=== PATIENT | male | born 1960 | race Caucasian/White ===

== ENCOUNTER 2022-10-06 09:37 | Emergency (ER) | payer MEDICARE, OTHER, SELFPAY ==
[2022-10-06 10:00] VITALS: BP 129/71; PULSE 65; RESP 20; TEMP 36.6; O2SAT 95; BMI 34.7
--- NOTE | 2022-10-06 10:15 | ED.GENADULT ---
HPI - General Adult General Time Seen by Provider: 10:16 Date Seen: 10/06/22 Chief complaint: Chest Pain Stated complaint: Chest pain, short of breath Time Seen by Provider: 10/06/22 10:06 Source: patient Mode of arrival: ambulatory History of Present Illness HPI narrative: Shashank is a 61 year old male past medical history includes rheumatoid arthritis, diabetes mellitus, CVA depression, obstructive sleep apnea, chronic pain, recently seen by dermatology diagnosis?chronic superficial folliculitis of the scalp associated folliculitis on the abdomen currently on clindamycin presents emerged department with chest pain and shortness of breath. Patient states that he has had increasing exertional shortness of breath, denies any orthopnea, he has had intermittent substernal chest pain, pain is 4/10, nonradiating, no changes with breathing, for quite some time, he discuss this with his nurse practitioner about 1 month ago, recommended to watch at that time. No history of any CAD, brother had triple bypass, patient denies any fevers or chills, he does have sweats, no nausea vomiting, he does have chronic intermittent dizziness, no abdominal pain or diarrhea. He denies any myalgias arthralgias, no sick contacts, he is vaccinated against COVID. No other concerns at this time. Related Data Home Medications Medication Instructions Recorded Confirmed azathioprine 50 mg tablet 50 mg PO QDAY 06/28/22 09/23/22 blood sugar diagnostic (Accu-Chek #10 ea 06/28/22 09/23/22 Guide test strips) blood-glucose meter (Accu-Chek #1 ea 06/28/22 09/23/22 Guide Glucose Meter) ezetimibe 10 mg tablet 10 mg PO QDAY 06/28/22 09/23/22 fluoxetine 20 mg capsule 20 mg PO QDAY 06/28/22 09/23/22 lancets (Accu-Chek Softclix #100 ea 06/28/22 09/23/22 Lancets) propranolol 40 mg tablet 40 mg PO BID 06/28/22 09/23/22 valacyclovir 1 gram tablet 1,000 mg PO .PRN 06/28/22 09/23/22 aspirin 81 mg tablet,delayed 81 mg PO QDAY 07/07/22 09/23/22 release (Adult Low Dose Aspirin) cholecalciferol (vitamin D3) 125 PO DAILY 07/07/22 09/23/22 mcg (5,000 unit) tablet fluticasone propionate 50 1 intranasal BID 07/07/22 09/23/22 mcg/actuation nasal spray,suspension triamcinolone acetonide 0.5 % 1 applic topical BID 07/07/22 09/23/22 topical cream Previous Rx's Medication Instructions Recorded rosuvastatin 40 mg tablet 40 mg PO QDAY #90 tabs 08/17/22 pantoprazole 40 mg tablet,delayed 40 mg PO QDAY #90 tabs 08/19/22 release metformin 500 mg tablet,extended 1,000 mg PO QDAY #180 tabs 08/26/22 release 24 hr hydrocodone 7.5 mg-acetaminophen 1 tab PO BID PRN pain #60 tabs 09/20/22 325 mg tablet clindamycin phosphate 1 % topical 1 applic topical QDAY #60 mL 09/23/22 solution Allergies Allergy/AdvReac Type Severity Reaction Status Date / Time No Known Drug Allergies Allergy Verified 10/06/22 10:00 Review of Systems Status of ROS: Reports: 10 or more systems reviewed and unremarkable except as noted in History and below [facility] Medical History Encounter for screening for severe acute respiratory syndrome coronavirus 2 (SARS-CoV-2) infection Folliculitis History of stroke Surgical History (Updated 07/06/22 @ 16:08 by Lorrie Rosenthal) History of cholecystectomy History of splenectomy Social History (Updated 07/06/22 @ 16:11 by Lorrie Rosenthal) Narrative: Alcohol abuse- sobriety since 2007 Smoking Status: Former smoker Do you use any of these nicotine containing products: None Second hand tobacco smoke exposure: No How often do you have a drink containing alcohol: never How often do you have six or more drinks on one occasion: Never AUDIT-C Alcohol total score: 0 service: No Exam Narrative: Exam Narrative: General: No obvious distress sitting comfortably HEENT: Pupils equal round reactive to light, extraocular muscles intact Neck: No JVD, supple full range of motion Abdomen: Soft nontender, bowel sounds present Lungs: Clear to auscultation bilaterally Heart: Normal sinus rhythm S1-S2 Muscle skeletal: No lower extremity edema Neuro: Alert awake and oriented x3 Const: Vital Signs, click to edit/add: Vital Signs - 24 hr 10/06/22 10:00 10/06/22 13:21 Temperature 97.8 F 97.8 F Pulse Rate [Apical ] 65 63 Respiratory Rate 20 14 Blood Pressure [Ri ght Upper Arm] 129/71 121/69 Pulse Oximetry 95 Oxygen Delivery Me thod Room Air Course Course Hospital Course: 10:30 AM: AIDET performed. Vitals are stable at this time, bedside EKG shows a normal sinus rhythm, right bundle branch block, BPM 64, similar to previous, will obtain IV peripheral, 15 mg IV Toradol, will obtain point of care troponin, CBC, NT proBNP, CMP and XR chest PA and lateral, atypical for ACS, pain is reproducible, less likely PE, plan to rule out cardiac causes. Reevaluation(s) Reevaluation #1: Patient was updated on his EKG, imaging and lab results, EKG showed no acute changes, imaging showed no acute cardiopulmonary process, troponin was negative, BNP was within normal limits, inflammatory markers negative, metabolic panel showed mildly elevated total bilirubin at 1.8, AST of 52, patient has a history of cholecystectomy and denies any abdominal pain. He was given the above care and did well, pain resolved, seems more reproducible, patient wishes to be discharged, he needs to follow up with his nurse practitioner over the next 5-7 days, discussion about possible exercise stress echo, reasons to return were given. Vital Signs Vital signs: Initial Vital Signs Temperature 97.8 F 10/06/22 10:00 Temperature Source Temporal Artery Scan 10/06/22 10:00 Pulse Rate 65 10/06/22 10:00 Pulse Rhythm 10/06/22 10:00 Respiratory Rate 20 10/06/22 10:00 Blood Pressure 129/71 10/06/22 10:00 Blood Pressure Mean 90 10/06/22 10:00 Blood Pressure Position Supine 10/06/22 10:00 Pulse Oximetry 95 10/06/22 10:00 Oxygen Delivery Method 10/06/22 10:00 Vital Signs Temperature 97.8 F 10/06/22 10:00 Pulse Rate 65 10/06/22 10:00 Respiratory Rate 20 10/06/22 10:00 Blood Pressure 129/71 10/06/22 10:00 Pulse Oximetry 95 10/06/22 10:00 Oxygen Delivery Method 10/06/22 10:00 Temperature 97.8 F 10/06/22 13:21 Pulse Rate 63 10/06/22 13:21 Respiratory Rate 14 10/06/22 13:21 Blood Pressure 121/69 10/06/22 13:21 Pulse Oximetry 95 10/06/22 10:00 Oxygen Delivery Method 10/06/22 10:00 Medical Decision Making Lab Data Labs: Lab Results 10/06/22 10/06/22 10/06/22 Range/Units 10:31 10:31 10:31 WBC 8.30 (4.50-11.00) K/uL RBC 5.33 (4.30-5.90) m/uL Hgb 16.3 (13.5-17.5) gm/dL Hct 48.3 (37.0-53.0) % MCV 91 (80-100) fL MCH 31 (26-34) pg MCHC 34 (32-36) gm/dL RDW Coeff of Toy 14.4 (11.5-15.5) % Plt Count 311 (140-440) K/uL Neut % (Auto) 37.9 L (42.0-72.0) % Lymph % (Auto) 45.7 H (20-44) % [place] % (Auto) 12.0 H (0.0-11.0) % Eos % (Auto) 3.5 (0.0-7.0) % Baso % (Auto) 0.4 (0.0-3.0) % Neut # (Auto) 3.10 (1.7-7.0) K/uL Lymph # (Auto) 3.80 H (0.90-2.90) K/uL [place] # (Auto) 1.00 H (0.00-0.90) K/UL Eos # (Auto) 0.29 (0.00-0.50) K/uL Baso # (Auto) 0.03 (0.00-0.30) K/uL Abs Immat Gran (auto) 0.04 (0.00-0.30) K/uL Imm/Tot Granulo (auto) 0.5 % Sodium 142 (135-149) mmol/L Potassium 4.4 (3.6-5.1) mmol/L Chloride 110 (96-114) mmol/L Carbon Dioxide 24 (20-32) mmol/L BUN 11 (7-30) mg/dL Creatinine 0.8 (0.5-1.5) mg/dL Estimated Creat Clear 72.20 Estimated GFR 99 ml/min Glucose 116 H (60-115) mg/dL Calcium 8.7 (8.4-10.6) mg/dL Total Bilirubin 1.8 H (0.1-1.5) mg/dL AST 52 H (12-35) U/L ALT 47 (4-50) U/L Alkaline Phosphatase 71 (40-150) U/L Troponin I < 0.01 L (0.01-0.04) ng/mL C-Reactive Protein < 0.5 L (0.5-1.0) mg/dL NT-Pro-B Natriuret Pep 43 (0-125) PG/mL Total Protein 7.1 (6.0-8.3) g/dL Albumin 4.2 (3.3-5.0) g/dL Discharge Plan Discharge Clinical Impression: Chronic shortness of breath, Atypical chest pain Patient Disposition: Home, Self-Care Condition: Improved Instructions: Chest Pain (ED) Additional Instructions: Patient should follow-up with primary care provider in the next 7-10 days, discussed further evaluation with exercise stress test, should return if any worsening symptoms. Prescriptions: No Action propranolol 40 mg tablet 40 mg PO BID Label Comments: TAKE ONE TABLET BY MOUTH DAILY FOR TREMOR fluoxetine 20 mg capsule 20 mg PO QDAY Label Comments: take 1-2 capsules by mouth daily valacyclovir 1 gram tablet 1,000 mg PO .PRN Label Comments: TAKE TWO TABLETS BY MOUTH TWICE DAILY ezetimibe 10 mg tablet 10 mg PO QDAY azathioprine 50 mg tablet 50 mg PO QDAY Label Comments: TAKE 2 TABLETS BY MOUTH DAILY (DME) Accu-Chek Guide test strips Strip See Rx Instructions .ROUTE .MEDSUPPLY Qty: 10 Label Comments: TEST ONCE DAILY Rx Instructions: As directed (DME) lancets [Accu-Chek Softclix Lancets] Misc See Rx Instructions .ROUTE .MEDSUPPLY Qty: 100 Label Comments: TEST ONCE DAILY Rx Instructions: As directed (DME) blood-glucose meter [Accu-Chek Guide Glucose Meter] Mis See Rx Instructions .ROUTE .MEDSUPPLY Qty: 1 Label Comments: USE TO CHECK GLUCOSE ONCE DAILY Rx Instructions: As directed cholecalciferol (vitamin D3) 125 mcg (5,000 unit) tablet PO DAILY aspirin [Adult Low Dose Aspirin] 81 mg tablet,delayed release (DR/EC) 81 mg PO QDAY fluticasone propionate 50 mcg/actuation spray,suspension 1 intranasal BID triamcinolone acetonide 0.5 % cream 1 applic topical BID clindamycin phosphate 1 % solution 1 applic topical QDAY Qty: 60 1RF rosuvastatin 40 mg tablet 40 mg PO QDAY Qty: 90 0RF pantoprazole 40 mg tablet,delayed release (DR/EC) 40 mg PO QDAY Qty: 90 3RF Label Comments: TAKE 1 TABLET BY MOUTH DAILY Rx Instructions: for acid reflux metformin 500 mg tablet extended release 24 hr 1,000 mg PO QDAY Qty: 180 0RF hydrocodone-acetaminophen 7.5-325 mg tablet 1 tab PO BID PRN (Reason: pain) Qty: 60 0RF Follow Up/Referrals: Kassandra Marshall PA-C [Primary Care Provider] - Stand Alone Forms: [facility] Info Instructions
--- NOTE | 2022-10-06 10:31 | CRLHL7_ITS ---
For Patients: As a result of the Cures Act, medical imaging exams and procedure reports are released immediately into your electronic medical record. You may view this report before your referring provider. If you have questions, please contact your health care provider. INDICATION: SOB, no cough or fever. TECHNIQUE: Chest 2 views COMPARISON: None FINDINGS: Cardiovascular and mediastinum: Heart size and vasculature are normal in caliber and appearance. Lungs and pleural spaces: Lungs are clear. No sign of infiltrate or mass. No sign of pleural effusion. No pneumothorax. Bones and soft tissues: No significant findings. IMPRESSION: No acute findings. No evidence of CHF. Dictated by Gurinder Parker MD @ 10/06/2022 11:34:38 AM (Electronically Signed)
[2022-10-06 10:58] LABS: Basophils Absolute Auto 0.03 K/uL (0.00-0.30); Basophils Percent Auto 0.4 % (0.0-3.0); Eosinophils Absolute Auto 0.29 K/uL (0.00-0.50); Eosinophils Percent Auto 3.5 % (0.0-7.0); Hematocrit 48.3 % (37.0-53.0); Hemoglobin* 16.3 gm/dL (13.5-17.5); Immature Granulocytes Abs Auto 0.04 K/uL (0.00-0.30); Immature Granulocytes Pct Auto 0.5 %; Lymphocytes Percent Auto 45.7 % (20-44); Mean Corpuscular HGB Conc 34 gm/dL (32-36); Mean Corpuscular Hemoglobin 31 pg (26-34); Mean Corpuscular Volume 91 fL (80-100); Neutrophils Percent Auto 37.9 % (42.0-72.0); Platelet Count* 311 K/uL (140-440); RDW Coefficient of Variation % 14.4 % (11.5-15.5); Red Blood Count 5.33 m/uL (4.30-5.90)
[2022-10-06 10:59] LABS: Slide Review Reflex No
[2022-10-06] MEDS: KETOROLAC 15 MG/ML inj IVP (11:06)
[2022-10-06 11:11] LABS: Albumin* 4.2 g/dL (3.3-5.0); Chloride* 110 mmol/L (96-114)
[2022-10-06 11:12] LABS: Potassium* 4.4 mmol/L (3.6-5.1); Sodium* 142 mmol/L (135-149)
[2022-10-06 11:14] LABS: Bilirubin Total* 1.8 mg/dL (0.1-1.5); Creatinine* 0.8 mg/dL (0.5-1.5); Estimated Glomerular Filt Rate 99 ml/min
[2022-10-06 11:15] LABS: Alanine Aminotransferase* 47 U/L (4-50); Alkaline Phosphatase* 71 U/L (40-150); Aspartate Amino Transferase* 52 U/L (12-35); Blood Urea Nitrogen* 11 mg/dL (7-30); Carbon Dioxide* 24 mmol/L (20-32); Glucose* 116 mg/dL (60-115); Total Protein* 7.1 g/dL (6.0-8.3)
[2022-10-06 11:16] LABS: Calcium* 8.7 mg/dL (8.4-10.6)
[2022-10-06 11:22] LABS: C Reactive Protein* < 0.5 mg/dL (0.5-1.0)
[2022-10-06 11:23] LABS: NT Pro B Type NatriureticPept* 43 PG/mL (0-125)
--- OUTSIDE RECORDS SUMMARY | 2022-10-06 11:28 | XMS_ITS | Encounter Summary ---
:1960 Author Organization [facility] Address [address] [place] [address]. [place] [address] Care Team Providers Name Role Phone Lucero Fraire MD Primary Care Provider Reason for Visit Reason Comments Chest Pain Encounter Details Date Type Department Care Team Description 01/18/2020 Emergency [facility] Jess Lovett A typical chest pain; [facility] Emergency PA Flank pain; Dept [facility] Diarrhea; [address] [facility] Cholelithiasis [place], [place] [address] [id number] [place] [address] [place] [address] (Wo rk) Social History Tobacco Use Types Packs/Day Years Used Date Smoking Tobacco: Never Smokeless Tobacco: Never Alcohol Use Standard Drinks/Week Comments No 0 (1 standard drink = 0.6 oz pure alcoho l) Sex Assigned at Date Recorded Not on file documented as of this encounter Last Filed Vital Signs Vital Sign Reading Time Taken Comments Blood Pressure 133/89 01/18/2020 7:45 PM PST SPECIALIST Pulse 69 01/18/2020 7:45 PM PST SPECIALIST Temperature 36.9 ??C (98.4 ??F) 01/18/2020 6:50 PM PST SPECIALIST Respiratory Rate 14 01/18/2020 8:00 PM PST SPECIALIST Oxygen Saturation 96% 01/18/2020 8:00 PM PST SPECIALIST Inhaled Oxygen Concentration - - Weight - - Height - - Body Mass Index - - documented in this encounter Discharge Instructions Discharge InstructionsJess Lovett PA - 01/18/2020 11:26 PM PST SPECIALIST Today, your labs and EKG and chest x-ray are reassuring. I would see her primary care provider within the next week for recheck of symptoms and to discuss an outpatient stress test. Worsening reflux could also be contributing to your chest discomfort. Unclear cause of your flank pain and diarrhea. I do suspect that this may be due to a virus or possibly a pulled muscle. Increase hydration at home, and also have this rechecked with your primary. Return if you have changing worsening symptoms, worsening abdominal pain, high fevers, uncontrolled vomiting, worsening chest pain, shortness of breath, newconcerns. Discharge Instructions Chest Pain You have been seen today for chest pain or discomfort. At this time, your doctor has found no signs that your chest pain is due to a serious or life-threatening condition, (or you have declined more testing and/or admission to the hospital). However, sometimes there is a serious problem that does not show up right away. Your evaluation today may not be complete and you may need further testing and evaluation. You need to follow-up with your regular doctor within 3 days. Return to the Emergency Department if: Your chest pain changes, gets worse, starts to happen more often, or comes with less activity. You are short of breath. You get very weak or tired. You pass out or faint. You have any new symptoms, like fever, cough, numb legs, or you cough up blood. You have anything else that worries you. Until you follow-up with your regular doctor please do the following: Take one aspirin daily unless you have an allergy or are told not to by your doctor. If a stress test appointment has been made, go to the appointment. If you have questions, contact your regular doctor. If your doctor today has told you to follow-up with your regular doctor, it is very important that you make an appointment with your clinic and go to the appointment. If you do not follow-up with your primary doctor, it may result in missing an important development which could result in permanent injury or disability and/or lasting pain. If there is any problem keeping your appointment, call your doctor or return to the Emergency Department. If you were given a prescription for medicine here today, be sure to read all of the information (including the package insert) that comes with your prescription. This will include important information about the medicine, its side effects, and any warnings that you need to know about. The pharmacist who fills the prescription can provide more information and answer questions you may have about the medicine. If you have questions or concerns that the pharmacist cannot address, please call or return to the Emergency Department. Opioid Medication Information Pain medications are among the most commonly prescribed medicines, so we are including this information for all our patients. If you did not receive pain medication or get a prescription for pain medicine, you can ignore it. You may have been given a prescription for an opioid (narcotic) pain medicine and/or have received apain medicine while here in the Emergency Department. These medicines can make you drowsy or impaired. You must not drive, operate dangerous equipment, or engage in any other dangerous activities whiletaking these medications. If you drive while taking these medications, you could be arrested for DUI, or driving under the influence. Do not drink any alcohol while you are taking these medications. Opioid pain medications can cause addiction. If you have a history of chemical dependency of any type, you are at a higher risk of becoming addicted to pain medications. Only take these prescribed medications to treat your pain when all other options have been tried. Take it for as short a time and asfew doses as possible. Store your pain pills in a secure place, as they are frequently stolen and provide a dangerous opportunity for children or visitors in your house to start abusing these powerful medications. We will not replace any lost or stolen medicine. As soon as your pain is better, you should flush all your remaining medication. Many prescription pain medications contain Tylenol?? (acetaminophen), including Vicodin??, Tylenol #3??, [place]??, Lortab??, and Percocet??. You should not take any extra pills of Tylenol?? if you are using these prescription medications or you can get very sick. Do not ever take more than 3000 mg of acetaminophen in any 24 hour period. All opioids tend to cause constipation. Drink plenty of water and eat foods that have a lot of fiber, such as fruits, vegetables, prune juice, apple juice and high fiber cereal. Take a laxative if you don???t move your bowels at least every other day. Miralax??, Milk of Magnesia, Colace??, or Senna?? can be used to keep you regular. Remember that you can always come back to the Emergency Department if you are not able to see your regular doctor in the amount of time listed above, if you get any new symptoms, or if there is anything that worries you. SPECIALIST documented in this encounter Medications at Time of Discharge Medication Sig Dispensed Refills Start Date End Date aspirin 81 MG tablet Take by mouth daily 0 HYDROcodone-acetaminophen Take 1-2 tablets by 15 tablet 0 1 12/06/2011 5-325 MG per tablet mouth every 4 hours as needed for pain. ibuprofen (ADVIL,MOTRIN) Take 1 tablet (800 20 tablet 0 800 MG tablet mg) by mouth every 8 hours as needed for moderate pain pantoprazole (PROTONIX) 40 Take 40 mg by mouth 0 MG EC tablet daily SIMVASTATIN PO 0 sucralfate (CARAFATE) 1 GM Take 1 tablet (1 g) 30 tablet 0 01/18/2020 tablet by mouth 4 times daily documented as of this encounter ED Notes Joslyn Carrillo RN - 01/18/2020 6:47 PM CST Pt comes in with chest pains, which he has had previously. Yesterday and this evening, also has acidreflux really bad. Takes Pantoprozole for that. Chest pain is gone when laying down, did get it when walking in from the parking lot. Describes it as like a toothache on the left side. ABC's intact, alert and oriented x 4. Previous history of CVA 12 years ago which affected the sensation in his left side and also has some weakness on the left side from that as well. SPECIALIST Jess Lovett PA - 01/18/2020 6:31 PM CST History Chief Complaint: Chest Pain HPI Shashank Hastings is a 59 year old male, with a history of stroke with residual left sided weakness, hyperlipidemia, and on baby Aspirin, who presents with his to the ED for evaluation of chestpain. The patient reports he developed midsternal chest pain radiating to the left side into his shoulder yesterday afternoon. The pain exacerbates with exertion and alleviates with rest. He has associated shortness of breath. He also felt like he had GERD yesterday and took Protonix. This usually resolves his GERD but did not help yesterday. He currently has a dull achy pain which feels like someone is punching. He did take his baby Aspirin today. The patient notes he last had a stress test whichwas unremarkable in 2012. He was seen at urgent care today and was advised to visit the ED. The patient denies any fever, cough, nausea, vomiting, leg swelling, or other symptoms/complaints. He denies history of myocardial infarction or other cardiac problems. CARDIAC RISK FACTORS: Sex: Male Tobacco: No Hypertension: No Hyperlipidemia: Yes Diabetes: No Family History: Yes PE/DVT RISK FACTORS: Sex: Male Hormones: No Tobacco: No Cancer: No Travel: No Surgery: No Other immobilization: No Personal history: No Family history: Yes Allergies: No known drug allergies Medications: Aspirin 81mg Protonix Simvastatin Past Medical History: HLD Stroke RA Past Surgical History: Abdomen surgery Orthopedic surgery Family History: [place]: daughter Blood clots, stroke: mother Blood clots: sister Stroke, liver cirrhosis: father Social History: Smoking status: Never smoker Alcohol use: No Presents to ED with Marital Status: [2] Review of Systems Constitutional: Negative for fever. Respiratory: Positive for shortness of breath. Negative for cough. Cardiovascular: Positive for chest pain. Negative for leg swelling. Gastrointestinal: Negative for nausea and vomiting. Musculoskeletal: Positive for myalgias. All other systems reviewed and are negative. Physical Exam Patient Vitals for the past 24 hrs: BP Temp Temp src Pulse Heart Rate Resp SpO2 01/18/201999 -- -- -- -- 77 14 96 % 01/18/20 1945 133/89 -- -- 69 73 21 -- 01/18/20 1900 127/89 -- -- 68 73 -- -- 01/18/20 1850 (!) 131/90 98.4 ??F (36.9 ??C) Oral 71 -- 16 94 % Physical Exam General: Well appearing, well nourished. Normal mood and affect. Skin: Good turgor, no rash, no unusual bruising or prominent lesions. HEENT: Head: Normocephalic, atraumatic, no visible masses. Eyes: Conjunctiva clear. Throat/pharynx: Mucous membranes moist, no mucosal lesions. Cardiac: Normal rate and regular rhythm, no murmur or gallop. Lungs: Clear to auscultation. Abdomen: Mild left upper quadrant pain. No rebound or guarding. Negative Myers's. No pain at McBurney's. Mild left-sided flank tenderness. Musculoskeletal: Normal gait and station. No calf tenderness or swelling. Neurologic: Oriented x 3. GCS: 15. Psychiatric: Intact recent and remote memory, judgment and insight, normal mood and affect. Emergency Department Course ECG (18:40:02): Rate 78 bpm. UT interval 164. QRS duration 90. QT/QTc 374/426. P-R-T axes 37 -26 7. Normal sinus rhythm. Normal ECG. No significant change compared to EKG dated 01/18/2020. Interpreted at [address] Pappas and reviewed by Jess Lovett PA-C. Imaging: Radiographic findings were communicated with the patient and family who voiced understanding of the findings. XR Chest 2 Views IMPRESSION: Negative chest. As read by Radiology. CT Abdomen Pelvis w/o Contrast IMPRESSION: 1. ??No urinary stones or hydronephrosis. 2. ??Cholelithiasis without pericholecystic inflammation. 3. ??No other acute findings within limits of noncontrast scan. As read by Radiology. Laboratory: Laboratory findings were communicated with the patient and family who voiced understanding of the findings. Troponin I #1 (1912): <0.015 Troponin I #2 (2125): <0.015 D dimer: 0.4 Lipase: 159 CBC: WBC 12.1(H), o/w WNL (HGB 15.0, PLT 344) CMP: Chloride 111(H), Glucose 102(H), Calcium 8.4(L), Albumin 3.3(L), o/w WNL (Creatinine 0.94) UA: Mucous present, o/w Negative Interventions: 1901: Aspirin 162mg PO 1902: GI Cocktail - Mylanta/Maalox 15 mL, Viscous Lidocaine 2% 15 mL, 30 mLs PO Emergency Department Course: Past medical records, nursing notes, and vitals reviewed. 1835: I performed an exam of the patient as documented above. 1840: EKG obtained in the ED, see results above. 191: IV was inserted and blood was drawn for laboratory testing, results above. The patient was sent for a chest x-ray while in the emergency department, results above. 224: The patient provided a urine sample here in the emergency department. This was sent for laboratory testing, findings above. 2051: I rechecked the patient and discussed the results of his workup thus far. Patient reports he now has abdominal pain. The patient was sent for an abdomen pelvis CT while in the emergency department, findings above. 0: I rechecked the patient. Explained findings to patient and . 2125: Repeat troponin obtained. 0: I rechecked the patient. Explained findings to patient and . Findings and plan explained to the patient and spouse. Patient discharged home with instructions regarding supportive care, medications, and reasons to return. The importance of close follow-up was reviewed. The patient was prescribed Carafate I personally reviewed the laboratory results with the patient and spouse and answered all related questions prior to discharge. Impression & Plan Medical Decision Making: Shashank Hastings is a 59 year old male who presented to the ED today for evaluation of chest pain. Details of the patient's history can be seen in the HPI. Differential diagnosis included ACS, dissection, pneumothorax, pneumonia, PE, costochondritis, pericarditis, panic attack, gastric reflux, amongst others. Workup in the ED yielded no acute abnormalities with CBC or BMP. Initial troponin returned negative. Delta troponin completed, and within normal limits. ECG did not show any evidence of STEMI. CXR was clear. The patient's heart score was found to be 3, low risk. The patient was low risk onWells criteria but not PERC negative due to his age. D-dimer obtained, and within normal limits. Later in the ED course, the patient then mentioned to me that he been having diarrhea and flank discomfort. We then added on a urine and CT scan, which were negative for ureterolithiasis, pyelonephritis, UTI, other pathology. He does have cholelithiasis. However, no signs of cholecystitis. He has no pain in the right upper quadrant, doubt that this is causing his symptoms. At this point, my great suspicion is that the patient symptoms are due to underlying gastric reflux as he notes he has had increased burning sensation from his reflux within the past few days. We will add on Carafate to see if this helps with his symptoms. He will otherwise see his primary next week for recheck of symptoms andto discuss outpatient stress test. In the meantime, return for changing worsening symptoms, worsening chest pain, fevers, increasing weakness, shortness of breath, new concerns. All questions were answered. He is in agreement with the treatment plan as stated above. Diagnosis: ICD-10-CM 1. Atypical chest pain R07.89 2. Flank pain R10.9 3. Diarrhea R19.7 4. Cholelithiasis K80.20 Disposition: Patient discharged to home with Discharge Medications: Details sucralfate (CARAFATE) 1 GM tablet Take 1 tablet (1 g) by mouth 4 times daily, Disp-30 tablet, R-0, Local Print Oliva Levin 01/18/2020 [facility] EM[facility] Scribe Disclosure: I, Oliva Levin, am serving as a scribe at 6:35 PM on 01/18/2020 to document services personally performed by Jess Lovett PA-C based on my observations and the provider's statements to me. This was created at least in part with a voice recognition software. Mistakes/typos may be present. Jess Lovett PA 01/19/20 1152 SPECIALIST documented in this encounter Plan of Treatment Not on filedocumented as of this encounter Procedures Procedure Name Priority Date/Time Associated Comments Diagnosis ROUTINE UA WITH STAT 01/18/2020 10:49 Results for this MICROSCOPIC PM PST SPECIALIST procedure are i n the results section. CT ABDOMEN PELVIS W/O STAT 01/18/2020 10:32 Re sults for this CONTRAST PM PST SPECIALIST procedure are i n the results section. TROPONIN I STAT 01/18/2020 9:26 PM Results f or this PST SPECIALIST procedure are i n the results section. XR CHEST 2 VIEWS STAT 01/18/2020 8:17 PM Resul ts for this PST SPECIALIST procedure are i n the results section. CBC WITH PLATELETS & STAT 01/18/2020 7:13 PM R esults for this DIFFERENTIAL PST SPECIALIST procedure are i n the results section. TROPONIN I STAT 01/18/2020 7:13 PM Results f or this PST SPECIALIST procedure are i n the results section. LIPASE STAT 01/18/2020 7:13 PM Results f or this PST SPECIALIST procedure are i n the results section. D DIMER QUANTITATIVE STAT 01/18/2020 7:13 PM R esults for this PST SPECIALIST procedure are i n the results section. COMPREHENSIVE STAT 01/18/2020 7:13 PM Results for this METABOLIC PANEL PST SPECIALIST procedure ar e in the results section. EKG 12-LEAD, TRACING STAT 01/18/2020 6:40 PM R esults for this ONLY PST SPECIALIST procedure are i n the results section. documented in this encounter Results (ABNORMAL) UA with Microscopic (01/18/2020 10:49 PM PST SPECIALIST) [facility] Method Time Signature Color Urine Light Yellow 01/18/2020 [facility] 11:16 PM [facility] Appearance Urine Clear 01/18/2020 [facility] 11:16 PM [facility] Glucose Urine Negative NEG^Negat 01/18/2020 [facility] elijah mg/dL 11:16 PM [facility] Bilirubin Urine Negative NEG^Negat 01/18/2020 [facility] elijah 11:16 PM [facility] Ketones Urine Negative NEG^Negat 01/18/2020 [facility] elijah mg/dL 11:16 PM [facility] Specific [place] 1.015 1.003 - 01/18/2020 [facility] Urine 1.035 11:16 PM [facility] Blood Urine Negative NEG^Negat 01/18/2020 [facility] elijah 11:16 PM [facility] pH Urine 6.0 5.0 - 7.0 01/18/2020 [facility] pH 11:16 PM [facility] Protein Albumin Negative NEG^Negat 01/18/2020 [facility] Urine elijah mg/dL 11:16 PM [facility] Urobilinogen Normal 0.0 - 2.0 01/18/2020 [facility] mg/dL mg/dL 11:16 PM [facility] Nitrite Urine Negative NEG^Negat 01/18/2020 [facility] elijah 11:16 PM [facility] Leukocyte Negative NEG^Negat 01/18/2020 [facility] Esterase Urine elijah 11:16 PM [facility] Source Midstream 01/18/2020 [facility] Urine 10:49 PM [facility] WBC Urine <1 0 - 5 01/18/2020 [facility] /HPF 11:16 PM [facility] RBC Urine 0 0 - 2 01/18/2020 [facility] 11:16 PM [facility] Squamous 1 0 - 1 01/18/2020 [facility] /HPF 11:16 PM [facility] Urine [facility] Mucous Urine Present (A) NEG^Negat 01/18/2020 [place] elijah /LPF 11:16 PM [facility] Specimen (Source) Anatomical Collection Method Collection Time Re ceived Time Location / / Volume Laterality Examination of 01/18/2020 10:49 0 midstream urine PM PST SPECIALIST 11:05 PM PST SPECIALIST specimen (procedure) Jess [facility] LAB - URINE ORDERABLES Performing Organization Address City/State/ZIP Code Phon e Number M [place] [address] [address] [place], [place] [address] [facility] [address] [place], [place] [address] [place] [address] CT Abdomen Pelvis w/o Contrast (01/18/2020 10:32 PM PST SPECIALIST) Anatomical Region Laterality Modality Abdomen/Pelvis, SUBRAD CT BODY, UMP CT ABDOMEN PELVIS, Computed Tomography RAD CT Specimen (Source) Anatomical Collection Method Collection Time Re ceived Time Location / / Volume Laterality 01/18/2020 10:27 PM PST SPECIALIST Impressions 01/18/2020 11:02 PM PST SPECIALIST IMPRESSION: 1. ??No urinary stones or hydronephrosis . 2. ??Cholelithiasis without pericholecys tic inflammation. 3. ??No other acute findings within limi ts of noncontrast scan. Narrative 01/18/2020 11:02 PM PST SPECIALIST EXAM: CT ABDOMEN PELVIS W/O CONTRAST LOCATION: [facility] DATE/TIME: 01/18/2020 10:27 PM INDICATION: Left flank pain. COMPARISON: None. TECHNIQUE: CT scan of the abdomen and pe lvis was performed without IV contrast. Multiplanar reformats were obtained. Dose reduction techniques were used. CONTRAST: None. FINDINGS: LOWER CHEST: Normal. HEPATOBILIARY: Cholelithiasis. No perich olecystic inflammation. PANCREAS: Normal. SPLEEN: A normal sized and shaped spleen is not present. There are multiple splenules in the left upper quadrant which could be due to prior trauma. ADRENAL GLANDS: Normal. KIDNEYS/BLADDER: No urinary stones or hy dronephrosis. BOWEL: No obstruction or wall thickening . LYMPH NODES: Normal. VASCULATURE: Unremarkable. PELVIC ORGANS: Normal. OTHER: ??No ascites or free air. MUSCULOSKELETAL: Normal. Procedure Note John Ceron MD - 01/18/2020F ormatting of this note might be different from the original. EXAM: CT ABDOMEN PELVIS W/O CONTRAST LOCATION: [facility] DATE/TIME: 01/18/2020 10:27 PM INDICATION: Left flank pain. COMPARISON: None. TECHNIQUE: CT scan of the abdomen and pe lvis was performed without IV contrast. Multiplanar reformats were obtained. Dose reduction techniques were used. CONTRAST: None. FINDINGS: LOWER CHEST: Normal. HEPATOBILIARY: Cholelithiasis. No perich olecystic inflammation. PANCREAS: Normal. SPLEEN: A normal sized and shaped spleen is not present. There are multiple splenules in the left upper quadrant which could be due to prior trauma. ADRENAL GLANDS: Normal. KIDNEYS/BLADDER: No urinary stones or hy dronephrosis. BOWEL: No obstruction or wall thickening . LYMPH NODES: Normal. VASCULATURE: Unremarkable. PELVIC ORGANS: Normal. OTHER: No ascites or free air. MUSCULOSKELETAL: Normal. IMPRESSION: 1. No urinary stones or hydronephrosis. 2. Cholelithiasis without pericholecysti c inflammation. 3. No other acute findings within limits of noncontrast scan. Jess HUNTER IMG CT ORDERABLES Troponin I (01/18/2020 9:26 PM PST SPECIALIST) athologist Signature Troponin I ES <0.015 0.000 - 01/18/2020 [place] 0.045 ug/L 9:56 PM PST SPECIALIST [facility] Comment: The 99th percentile for upper reference range is 0.045 ug/L. ??Troponin values in the range of 0.045 - 0.120 ug/L may b e associated with risks of adverse clinical events. Specimen Anatomical Collection Method Collection Time Receive d Time (Source) Location / / Volume Laterality Blood specimen 01/18/2020 9:26 PM 020 9:33 (specimen) PST SPECIALIST PM PST SPECIALIST Jess [facility] LAB - BLOOD ORDERABLES Performing Organization Address City/State/ZIP Code Phon e Number M [facility] [address] [place], [place] [address] [facility] [address], [place] [address], [facility] [phone] XR Chest 2 Views (01/18/2020 8:17 PM PST SPECIALIST) Anatomical Region Laterality Modality Chest Computed Radiography Specimen (Source) Anatomical Collection Method Collection Time Re ceived Time Location / / Volume Laterality 01/18/2020 8:03 PM PST SPECIALIST Impressions 01/18/2020 8:41 PM PST SPECIALIST IMPRESSION: Negative chest. Narrative 01/18/2020 8:41 PM PST SPECIALIST EXAM: XR CHEST 2 VW LOCATION: [facility] DATE/TIME: 01/18/2020 8:03 PM INDICATION: Chest pain. COMPARISON: None. Procedure Note Kameron Puente MD - 01/18/2020Formattin g of this note might be different from the original. EXAM: XR CHEST 2 VW LOCATION: [facility] DATE/TIME: 01/18/2020 8:03 PM INDICATION: Chest pain. COMPARISON: None. IMPRESSION: Negative chest. eJss [facility] IMG DIAGNOSTIC IMAGING ORDER [place] Troponin I (01/18/2020 7:13 PM PST SPECIALIST) athologist Signature Troponin I ES <0.015 0.000 - 01/18/2020 [place] 0.045 ug/L 7:47 PM [facility] Comment: The 99th percentile for upper reference range is 0.045 ug/L. ??Troponin values in the range of 0.045 - 0.120 ug/L may b e associated with risks of adverse clinical events. Specimen Anatomical Collection Method Collection Time Receive d Time (Source) Location / / Volume Laterality Blood specimen 01/18/2020 7:13 PM 020 7:23 (specimen) PST SPECIALIST PM PST SPECIALIST Jess [facility] LAB - BLOOD ORDERABLES Performing Organization Address City/State/ZIP Code Phon e Vicky Phillips [facility] [address], [place] [address] [facility] [address], [place] [address] 7, [facility] [phone] Lipase (01/18/2020 7:13 PM PST SPECIALIST) athologist Signature Lipase 159 73 - 393 01/18/2020 [facility] U/L 7:44 PM [facility] Specimen Anatomical Collection Method Collection Time Receive d Time (Source) Location / / Volume Laterality Blood specimen 01/18/2020 7:13 PM 020 7:23 (specimen) PST SPECIALIST PM PST SPECIALIST Jess HUNTER LAB - BLOOD ORDERABLES Performing Organization Address City/State/ZIP Code Phon e Number M [facility] [address] [place] [address] [facility] [address] [phone] (ABNORMAL) Comprehensive metabolic panel (01/18/2020 7:13 PM PST SPECIALIST) athologist Signature Sodium 141 133 - 144 01/18/2020 [place] mmol/L 7:36 PM [facility] Potassium 3.7 3.4 - 5.3 01/18/2020 [place] mmol/L 7:36 PM [facility] Chloride 111 (H) 94 - 109 01/18/2020 [place] mmol/L 7:36 PM [facility] Carbon Dioxide 24 20 - 32 01/18/2020 [place] mmol/L 7:41 PM [facility] Anion Gap 6 3 - 14 01/18/2020 [place] mmol/L 7:41 PM [facility] Glucose 102 (H) 70 - 99 01/18/2020 [place] mg/dL 7:41 PM [facility] Urea Nitrogen 14 7 - 30 01/18/2020 [place] mg/dL 7:41 PM [facility] Creatinine 0.94 0.66 - 01/18/2020 [facility] 1.25 mg/dL 7:41 PM [facility] GFR Estimate 87 >60 01/18/2020 [place] mL/min/{1. 7:41 PM [facility] 73_m2} HOSPITAL Comment: Non GFR Calc Starting 11/07/2018, serum creatinine ba sed estimated GFR (eGFR) will be calculated using the Chronic Kidney Dise ase Epidemiology Collaboration (CKD-EPI) equation. GFR Estimate If >90 >60 mL/min/{1.73_m2} 01/18/2020 7: 41 PM [facility] Comment: GFR Calc Starting 11/07/2018, serum creatinine ba sed estimated GFR (eGFR) will be calculated using the Chronic Kidney Dise ase Epidemiology Collaboration (CKD-EPI) equation. Calcium 8.4 (L) 8.5 - 10.1 01/18/2020 7:41 PM [facility] mg/dL [facility] Bilirubin Total 0.7 0.2 - 1.3 mg/dL 01/18/2020 7:44 PM [facility] Albumin 3.3 (L) 3.4 - 5.0 g/dL 01/18/2020 7:44 PM [facility] Protein Total 7.2 6.8 - 8.8 g/dL 01/18/2020 7:44 PM [facility] Alkaline Phosphatase 99 40 - 150 U/L 01/18/2020 7:44 PM [facility] ALT 48 0 - 70 U/L 01/18/2020 7:44 PM [facility] AST 28 0 - 45 U/L 01/18/2020 7:44 PM [facility] Specimen Anatomical Collection Method Collection Time Receive d Time (Source) Location / / Volume Laterality Blood specimen 01/18/2020 7:13 PM 020 7:23 (specimen) PST SPECIALIST PM [facility] Jess HUNTER LAB - BLOOD ORDERABLES Performing Organization Address City/State/ZIP Code Phon e Number M [facility] [address] [place] [address] [facility] [address] [phone] D dimer quantitative (01/18/2020 7:13 PM PST SPECIALIST) athologist Signature D Dimer 0.4 0.0 - 0.50 01/18/2020 [facility] ug/ml FEU 7:38 PM [facility] Comment: This D-dimer assay is intended for use i n conjunction with a clinical pretest probability assessment model to exclude pulmonary embolism (PE) and deep venous thrombosis (DVT) in outpatients s uspected of PE or DVT. The cut-off value is 0.5 ug/mL FEU. Specimen Anatomical Collection Method Collection Time Receive d Time (Source) Location / / Volume Laterality Blood specimen 01/18/2020 7:13 PM 020 7:23 (specimen) PST SPECIALIST PM PST SPECIALIST Jess HUNTER LAB - BLOOD ORDERABLES Performing Organization Address City/State/ZIP Code Phon e Number M [place] [address] [address] [place], [place] [address] [facility] [address] [phone] (ABNORMAL) CBC with platelets differential (01/18/2020 7:13 PM PST SPECIALIST) [facility] Method Time Signature WBC 12.1 (H) 4.0 - 01/18/2020 [facility] 11.0 7:29 PM [facility] 10e9/L [facility] RBC Count 5.21 4.4 - 5.9 01/18/2020 [facility] 10e12/L 7:29 PM [facility] Hemoglobin 15.0 13.3 - 01/18/2020 [facility] 17.7 g/dL 7:29 PM [facility] Hematocrit 46.4 40.0 - 01/18/2020 [facility] 53.0 % 7:29 PM [facility] MCV 89 78 - 100 01/18/2020 [facility] fl 7:29 PM [facility] MCH 28.8 26.5 - 01/18/2020 [facility] 33.0 pg 7:29 PM [facility] MCHC 32.3 31.5 - 01/18/2020 [facility] 36.5 g/dL 7:29 PM [facility] RDW 14.9 10.0 - 01/18/2020 [facility] 15.0 % 7:29 PM [facility] Platelet Count 344 150 - 450 01/18/2020 [facility] 10e9/L 7:29 PM [facility] Diff Method Automated 01/18/2020 [facility] Method 7:57 PM [facility] % Neutrophils 43.8 % 01/18/2020 [facility] 7:57 PM [facility] % Lymphocytes 42.2 % 01/18/2020 [facility] 7:57 PM PST SPECIALIST [facility] % Monocytes 10.9 % 01/18/2020 [facility] 7:57 PM [facility] % Eosinophils 2.2 % 01/18/2020 [facility] 7:57 PM [facility] % Basophils 0.4 % 01/18/2020 [facility] 7:57 PM [facility] % Immature 0.5 % 01/18/2020 [facility] Granulocytes 7:57 PM [facility] Nucleated RBCs 0 0 /100 01/18/2020 [facility] 7:57 PM [facility] Absolute 5.3 1.6 - 8.3 01/18/2020 [facility] Neutrophil 10e9/L 7:57 PM [facility] Absolute 5.1 0.8 - 5.3 01/18/2020 [facility] Lymphocytes 10e9/L 7:57 PM [facility] Absolute 1.3 0.0 - 1.3 01/18/2020 [facility] Monocytes 10e9/L 7:57 PM [facility] Absolute 0.3 0.0 - 0.7 01/18/2020 [facility] Eosinophils 10e9/L 7:57 PM [facility] Absolute 0.1 0.0 - 0.2 01/18/2020 [facility] Basophils 10e9/L 7:57 PM [facility] Abs Immature 0.1 0 - 0.4 01/18/2020 [facility] Granulocytes 10e9/L 7:57 PM [facility] Absolute 0.0 01/18/2020 [facility] Nucleated RBC 7:57 PM [facility] RBC Morphology Consistent 01/18/2020 [facility] with reported 7:57 PM [facility] Platelet Automated 01/18/2020 [facility] Estimate count 7:57 PM [facility]. HOSPITAL Platelet morphology is normal. Specimen Anatomical Collection Method Collection Time Receive d Time (Source) Location / / Volume Laterality Blood specimen 01/18/2020 7:13 PM 020 7:23 (specimen) PST SPECIALIST PM PST SPECIALIST Jess HUNTER LAB - BLOOD ORDERABLES Performing Organization Address City/State/ZIP Code Phon e Number M [facility] [address], [place] [address] [facility] [address] [address] [facility] [phone] EKG 12-lead, tracing only (01/18/2020 6:40 PM PST SPECIALIST) [facility] gist Method Time Signature Interpretation ECG Click View RADIOLOGY Image link RESULTS to view waveform and result Specimen (Source) Anatomical Collection Method Collection Time Re ceived Time Location / / Volume Laterality 01/18/2020 6:40 PM PST SPECIALIST Jess HUNTER ECG ORDERABLES Performing Organization Address City/State/ZIP Code Phon e Number RADIOLOGY RESULTS documented in this encounter Visit Diagnoses Diagnosis Atypical chest pain Other chest pain Flank pain Abdominal pain, unspecified site Diarrhea Cholelithiasis documented in this encounter Administered Medications Inactive Administered Medications - up to 3 most recent administrations Medication Order MAR Action Action Date Dose Rate Site aspirin (ASA) chewable tablet 162 Given 01/18/2020 7:02 PM PST SPECIALIST 1 62 mg mg 162 mg, Oral, ONCE, On 01/18/20 at 1847, For 1 dose lidocaine (XYLOCAINE) 2 % 15 mL, alum & mag Given 01/18/2020 7:03 PM PST SPECIALIST 30 mLs hydroxide-simethicone (MAALOX ES) 15 mL GI Cocktail 30 mL, Oral, ONCE, On 01/18/20 at 1847, For 1 dose documented in this encounter Active and Recently Administered Medications Times are shown in PST SPECIALIST. Scheduled Medication Order 01/16/2020 01/17/2020 01/18/2020 aspirin (ASA) chewable tablet 162 mg (COMPLETED) 1901 (Given - Provider: Joslyn Carrillo RN) 162 mg, Oral, ONCE, 01/18/20 at 1847, For 1 dose lidocaine (XYLOCAINE) 2 % 15 mL, alum & mag hydroxide-simethicone (MAALOX ES) 15 mL GI Cocktail (COMPLETED) 1902 (Given - Provider: Joslyn Carrillo RN) 30 mL, Oral, ONCE, 01/18/20 at 1847, For 1 dose documented in this encounter Care Teams Cloth Napping Supervisor Relationship Specialty Start Date End Date Lucero Fraire MD PCP - General 10/20/17 [place] [id number] [place] [address] documented as of this encounter
--- OUTSIDE RECORDS SUMMARY | 2022-10-06 11:28 | XMS_ITS | Clinical Summary ---
:1960 Author Organization [place] Address [address] [place] [address]. [place] [address] Care Team Providers Name Role Phone Lucero Fraire MD Primary Care Provider Allergies No known active allergies Medications Medication Sig Dispensed Refills Start Date End Date Status HYDROcodone-acetaminop Take 1-2 tablets 15 tablet 0 10/06/2012 Active hen 5-325 MG per by mouth every 4 tablet hours as needed for pain. ibuprofen Take 1 tablet (800 20 tablet 0 04/15/2015 Active (ADVIL,MOTRIN) 800 MG mg) by mouth every tablet 8 hours as needed for moderate pain SIMVASTATIN PO 0 Activ e aspirin 81 MG tablet Take by mouth 0 Active daily pantoprazole Take 40 mg by 0 Act elijah (PROTONIX) 40 MG EC mouth daily tablet sucralfate (CARAFATE) Take 1 tablet (1 30 tablet 0 01/18/2020 Active 1 GM tablet g) by mouth 4 times daily Social History Tobacco Use Types Packs/Day Years Used Date Smoking Tobacco: Never Smokeless Tobacco: Never Alcohol Use Standard Drinks/Week Comments No 0 (1 standard drink = 0.6 oz pure alcoho l) Sex Assigned at Date Recorded Not on file Last Filed Vital Signs Vital Sign Reading Time Taken Comments Blood Pressure 139/94 08/01/2020 6:32 PM CDT Pulse 70 08/01/2020 6:32 PM CDT Temperature 36.8 ??C (98.3 ??F) 08/01/2020 6:32 PM CDT Respiratory Rate 18 08/01/2020 6:32 PM CDT Oxygen Saturation 98% 08/01/2020 6:32 PM CDT Inhaled Oxygen Concentration - - Weight 103.6 kg (228 lb 6.3 oz) 08/01/2020 6:32 PM CDT Height 172.7 cm (5' 8) 04/15/2015 12:23 AM CDT Body Mass Index 34.73 04/15/2015 12:23 AM CDT Plan of Treatment Health Maintenance Due Date Last Done Comments ADVANCE CARE PLANNING 1960 ANNUAL REVIEW OF HM ORDERS 1960 CT COLONOGRAPHY 1960 FIT-DNA (Cologuard) 1960 FIT 1960 FLEX SIG 1960 HEPATITIS B IMMUNIZATION (1 1960 of 3 - 3-dose series) COVID-19 Vaccine (#1) 03/22/1959 HIV SCREENING 1973 HEPATITIS C SCREENING 1976 MEDICARE ANNUAL WELLNESS 1976 VISIT DTAP/TDAP/TD IMMUNIZATION 1983 (1 - Tdap) LIPID 12/06/2012 12/06/2007 COLONOSCOPY 01/13/2016 01/13/2006 COLORECTAL CANCER SCREENING 01/13/2016 ZOSTER IMMUNIZATION (2 of 09/14/2019 07/20/2019 2) PHQ-2 (once per calendar 11/21/2021 year) INFLUENZA VACCINE (#1) 2022 07/29/2020, 07/20/2019, 08/03/2018, Additional history exists Pneumococcal Vaccine: Aged Out 04/13/2019, 02/16/1994 No longer eligible Pediatrics (0 to 5 Years) based on patient's age and At-Risk Patients (6 to to co mplete this topic 64 Years) IPV IMMUNIZATION Aged Out No longer eligi ble based on patient 's age to complete this topic MENINGITIS IMMUNIZATION Aged Out No longe r eligible based on patient 's age to complete this topic Insurance Payer Benefit Plan / Subscriber ID Effective Phone Address T ype Group Dates 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 [id number] 2015-Pres [phone] [address] [place] [address] /CHAMP FOR [id number] 2019-Prese [phone] F [place] Indemnity VA LIFE nt [address] LIFE [address] [place] [address] MEDICARE MEDICARE [id number] 2018-Pres [phone] ATTN [place] Medicare ent 340 [address] [place] [address] Andrea Hastings Worker's Self 1960 [phone] [place] as A Compensation [address] (Work) [place] [address] Andrea Hastings Worker's Self 1960 [phone] [place] as [place] Compensation [address] none (Work) [place] [address] Care Teams Family Services Assistant Relationship Specialty Start Date End Date Lucero Fraire MD PCP - General 10/20/17 [facility] [address] [place] [address]
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
--- OUTSIDE RECORDS SUMMARY | 2022-10-06 11:28 | XMS_ITS | Encounter Summary ---
:1960 Author Organization [place] Address [facility] [place] [address] Care Team Providers Name Role Phone Lucero Fraire MD Primary Care Provider Encounter Details Date Type Department Care Team Description 08/01/2020 Travel Social History Tobacco Use Types Packs/Day Years [...] / COVID-19? documented as of this encounter Plan of Treatment Not on filedocumented as of this encounter Visit Diagnoses Not on filedocumented in this encounter Care Teams Light Equipment Operator Relationship Specialty Start Date End Date Lucero Fraire MD PCP - General 10/20/17 [facility] [address] [place], [place] [id number] documented as of this encounter
--- OUTSIDE RECORDS SUMMARY | 2022-10-06 11:28 | XMS_ITS | Encounter Summary ---
:1960 Author Organization [facility] Address [address] [place] [address]. [place] [address] Care Team Providers Name Role Phone Lucero Fraire MD Primary Care Provider Encounter Details Date Type Department Care Team Description 01/18/2020 Travel Social History Tobacco Use Types Packs/Day Years Used Date Smoking Tobacco: Never Smokeless Tobacco: Never Alcohol Use Standard Drinks/Week Comments No 0 (1 standard drink = 0.6 oz pure alcoho l) Sex Assigned at Date Recorded Not on file documented as of this encounter Plan of Treatment Not on filedocumented as of this encounter Visit Diagnoses Not on filedocumented in this encounter Care Teams Medical Billing Associate Relationship Specialty Start Date End Date Lucero Fraire MD PCP - General 10/20/17 [facility] [address] [place], [place] [id number] documented as of this encounter
--- OUTSIDE RECORDS SUMMARY | 2022-10-06 11:29 | XMS_ITS | Encounter Summary ---
:1960 Author Organization [facility] Address [address] [place] [address]. [place] [address] Care Team Providers Name Role Phone Unavailable Primary Care Provider Unavailable Reason for Visit Reason Comments RECHECK Left knee injury. Left tib-f ib fusion. 09/27/16. Encounter Details Date Type Department Care Team Description 10/17/2017 Office Visit [facility] Orthopaedic Kameron Morlaes C hronic pain of left Clinic MD knee (Primary Dx) [address] [facility] [address] [place] [address] [address] [place] [id number] [phone] (Wo rk) Social History Tobacco Use Types Packs/Day Years Used Date Smoking Tobacco: Never Smokeless Tobacco: Never Alcohol Use Standard Drinks/Week Comments No 0 (1 standard drink = 0.6 oz pure alcoho l) Sex Assigned at Date Recorded Not on file documented as of this encounter Progress Notes Shantell Garcia, ASSOCIATE PROFESSOR OF [employer] CRIMINAL ATTORNEY - 10/17/2017 12:00 PM CST CC: left knee pain Carlo is seen in follow up after his left knee proximal tib/fib fusion 09/[address] have proven that the fusion has long since healed. Taking out the hardware did not help his pain at all. He reports pain isn't any different and is debilitating. Rates pain a constant 8 and at times 10 out of 10. Reports numbness to the outside of his leg that shoots down to all his toes with every step Afebrile. Denies SOB or CP. Walks using a cane for long distances. PMH: Reviewed ROS: Reviewed PE: Pleasant and cooperative alert and oriented x3. Has an exaggerated limp in sit to stand from chair. Limp on gait. Positive tinels over lateral proximal knee. Incision is healed/intact. Tenderness to palpate lateral compartment and medial side. No joint effusion. Patella tracks appropriately. No calf pain. Ligament exam normal. xrays show well healed tib/fib fusion to left knee Dx: healed tib/fib fusion left with recent screw removal Plan: 1. At this time, we have no specified cause for the amount of pain Carlo is describing. We will obtaina knee MRI and EMG with a follow up office visit to review once approved by w/c. Answers for HPI/ROS submitted by the patient on 10/17/2017 General Symptoms: No Skin Symptoms: No HENT Symptoms: No EYE SYMPTOMS: No HEART SYMPTOMS: No LUNG SYMPTOMS: No INTESTINAL SYMPTOMS: No URINARY SYMPTOMS: No REPRODUCTIVE SYMPTOMS: No SKELETAL SYMPTOMS: No BLOOD SYMPTOMS: No NERVOUS SYSTEM SYMPTOMS: No MENTAL HEALTH SYMPTOMS: No I, Dr. Kameron Morales, have seen and examined this patient with Shantlel Garcia APRN, CRIMINAL ATTORNEY. TCHER documented in this encounter Nursing Notes Autumn Love ATC - 10/17/2017 12:00 PM CST Reason For Visit: Chief Complaint Patient presents with ??? RECHECK Left knee injury. Left tib-fib fusion. 09/27/16. Pain Assessment Patient Currently in Pain: Yes 0-10 Pain Scale: 4 Primary Pain Location: Knee Pain Orientation: Left Pain Descriptors: Aching Alleviating Factors: Rest Aggravating Factors: Movement TCHER documented in this encounter Miscellaneous Notes Addendum Note - Autumn Love ATC - 10/17/2017 1:30 PM SCRATCHER Addended by: AUTUMN LOVE on: 10/17/2017 01:30 PM Modules accepted: Orders TCHER documented in this encounter Plan of Treatment Not on filedocumented as of this encounter Results MRI Lower extremity joint w/o contrast LT* (10/26/2017 10:39 AM SCRATCHER) Anatomical Region Laterality Modality Lower Extremity, SUBRAD MR MSK, UMP MR MSK Magnetic Resonance Specimen (Source) Anatomical Location Collection Method / Collectio n Time Received Time / Laterality Volume Impressions 10/26/2017 11:15 AM SCRATCHER IMPRESSION: Old surgical changes of the proximal tibiofibular fusion. 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 I berenice pect there are degenerative changes elsewhere in this joint. No othe r abnormality is demonstrated. FATOUMATA LANDAVERDE MD Narrative 10/26/2017 11:15 AM SCRATCHER MRI LEFT KNEE WITHOUT CONTRAST October 26, 2017 10:39 AM HISTORY: Left knee pain since 08/15/2015 following an injury. Tibia-fibula surgery in September 2016. COMPARISON: Radiographs on 10/17/2017. TECHNIQUE: Multiplanar MR imaging was pe rformed without contrast. Markers were placed along the lateral as pect of the knee adjacent to the distal femur and proximal fibula. FINDINGS: Medial Meniscus: No tear, displaced frag ment, or extrusion. ?? Lateral Meniscus: No tear, displaced fra gment, or extrusion. ?? Anterior Cruciate Ligament: Unremarkable . Posterior Cruciate Ligament: Unremarkabl e. Medial Collateral Ligament: Unremarkable . Lateral Collateral Ligament Complex, Pop liteus Tendon: The iliotibial band, fibular collateral ligament, bicep s femoris tendon, and popliteus tendon are unremarkable. Osseous and Cartilaginous Structures: No fracture or osseous lesion is demonstrated. There are old screw tracks within the fibular head and adjacent proximal tibia from previous leo rdware fusion. No hardware remains. There is marked loss of space b etween the fibular head and adjacent tibia with adjacent callus form ation. However, there is some persistence of the space between the bon es with what appears to be only mild actual solid bone bridging. Th ere is mild marrow edema on both sides of this articulation. The car tilage surfaces are well preserved. The transverse images did not entirely include the patellofemoral articulation. However, no definite patellofemoral joint space pathology is seen on the other kika ging planes. Extensor Mechanism: The quadriceps and p atellar tendons are unremarkable. The medial and lateral pat ellar retinacula appear unremarkable. Joint Space: No joint effusion. No defin ite loose bodies appreciated. Additional Findings: No Fletcher's cyst. No semimembranosus-tibial collateral ligament or pes anserine burs itis. No adjacent soft tissue pathology is seen. Procedure Note Fatoumata Landaverde MD - 10/26/2017Fo rmatting of this note might be different from the original. MRI LEFT KNEE WITHOUT CONTRAST October 26, 2017 10:39 AM HISTORY: Left knee pain since 08/15/2015 following an injury. Tibia-fibula surgery in September 2016. COMPARISON: Radiographs on 10/17/2017. TECHNIQUE: Multiplanar MR imaging was pe rformed without contrast. Markers were placed along the lateral as pect of the knee adjacent to the distal femur and proximal fibula. FINDINGS: Medial Meniscus: No tear, displaced frag ment, or extrusion. Lateral Meniscus: No tear, displaced fra gment, or extrusion. Anterior Cruciate Ligament: Unremarkable . Posterior Cruciate Ligament: Unremarkabl e. Medial Collateral Ligament: Unremarkable . Lateral Collateral Ligament Complex, Pop liteus Tendon: The iliotibial band, fibular collateral ligament, bicep s femoris tendon, and popliteus tendon are unremarkable. Osseous and Cartilaginous Structures: No fracture or osseous lesion is demonstrated. There are old screw tracks within the fibular head and adjacent proximal tibia from previous leo rdware fusion. No hardware remains. There is marked loss of space b etween the fibular head and adjacent tibia with adjacent callus form ation. However, there is some persistence of the space between the bon es with what appears to be only mild actual solid bone bridging. Th ere is mild marrow edema on both sides of this articulation. The car tilage surfaces are well preserved. The transverse images did not entirely include the patellofemoral articulation. However, no definite patellofemoral joint space pathology is seen on the other kika ging planes. Extensor Mechanism: The quadriceps and p atellar tendons are unremarkable. The medial and lateral pat ellar retinacula appear unremarkable. Joint Space: No joint effusion. No defin ite loose bodies appreciated. Additional Findings: No Fletcher's cyst. No semimembranosus-tibial collateral ligament or pes anserine burs itis. No adjacent soft tissue pathology is seen. IMPRESSION: Old surgical changes of the proximal tibiofibular fusion. 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 I berenice pect there are degenerative changes elsewhere in this joint. No othe r abnormality is demonstrated. FATOUMATA LANDAVERDE MD Shantell Garcia APRN CRIMINAL ATTORNEY IMG MRI ORDERABLES documented in this encounter Visit Diagnoses Diagnosis Chronic pain of left knee - Primary Pain in joint, lower leg Chronic pain of left knee Pain in joint, lower leg documented in this encounter
--- OUTSIDE RECORDS SUMMARY | 2022-10-06 11:29 | XMS_ITS | Encounter Summary ---
:1960 Author Organization [facility] Address [address] [place] [address]. [place] [address] Care Team Providers Name Role Phone Unavailable Primary Care Provider Unavailable Encounter Details Date Type Department Care Team Description 03/26/2008 Consultation [facility] Deepali Murcia, [facility] Results [address] [place], [place] [address] (Wo rk) Social History Tobacco Use Types Packs/Day Years Used Date Smoking Tobacco: Never Assessed Sex Assigned at Date Recorded Not on file documented as of this encounter Procedure Notes Deepali Murcia - 04/24/2008 10:32 AM CDTAssociated Order(s): CONSULT OCCUPATIONAL MED. FINAL OCCUPATIONAL THERAPY DISCHARGE SUMMARY Shashank Hastings has been seen in Occupational Therapy 19 times since the initial evaluation on 12/21/2007. 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 The above deficits impact patient's ability to perform ADLs and IADLs independently. Treatment has included visual-perceptual evaluation and training, cognitive evaluation and intervention, neuromuscular/motor skills and training, home program, energy management education, homemaking training, patient/caregiver education. At the conclusion of therapy patient is independent with basic ADLs and has returned to driving and work full-time. The patient does continue to demonstrate cognitive impairments with short-term memory, decreased attention, and decreased problem solving, which affects his ability to complete his IADLs safely. PATIENT/CLIENT SELF REPORT: Patient was last seen on 03/07/2008 and then was a cancel due to no-show and no call received on 03/14/2008 and 03/21/2008. The patient called on 03/26/2008 and reported hewould not be returning for outpatient therapies due to financial concerns. Previously patient had stated he believed that he had made improvements with his cognitive deficits, as well as in his level of independence with ADLs and with return to work and driving. Patient did report that he was continuing to have ongoing fatigue as an issue and when not incorporating compensatory strategies for cognitive deficits. IMPAIRMENTS/FUNCTIONAL STATUS (TEST AND MEASURES): Please refer to last therapy session of 03/07/2008 and refer to progress note dated 03/14/2008. INTERVENTIONS THIS SESSION: None due to patient has not shown up for the past two sessions. PLAN OF CARE GOALS (to be met within 4 weeks): 1. Patient will demonstrate within functional limit scores on Dynavision visual motor reaction timeand divided attention task with alternating roles using Dynavision in preparation for safe return toIADLs and while managing distractions. Goal Progress: Goal not met. 2. Patient will complete complex problem solving activity with 90% accuracy with minimal to moderate distractions in preparation for safe return to IADL and work. Goal Progress: Goal not met. 3. Patient will participate in moderately complex divided attention activity between two tasks withonly two cues provided for redirection. Goal Progress: Goal not met. 4. Patient will demonstrate independent understanding of sensory precautions in order to accommodate for decreased sensation in left hand in preparation for return to work. Goal Progress: Progressing toward goals, but not fully met. ADAPTIVE EQUIPMENT ISSUED: Memory log book and pocket calendar. EDUCATIONAL NEEDS: Patient was provided with instruction in home exercise program, compensatory strategies for cognitive deficits, written material for emotions after a stroke, resources for support groups, resources with mental health/behavioral health. REASON FOR DISCHARGE: Patient being discharged per patient request due to patient's financial concerns. 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 Thank you for referring Shashank Hastings to Occupational Therapy. If you have questions, please call me at [phone]. Electronically signed on 04/25/2008 17:17 by DEEPALI MURCIA OTR/Althea MT: roberta Name: SHASHANK HASTINGS MRN: [id number] Account: [id number] : 1960 Visit Date: 03/26/2008 Sex: M Age: 47 Document: [id number] cc: Shashank Anne MD documented in this encounter Plan of Treatment Not on filedocumented as of this encounter Procedures Procedure Name Priority Date/Time Associated Comments Diagnosis ZZ CONSULT 04/23/2008 3:48 PM Results f or this OCCUPATIONAL MED. CDT procedure are in the results section. documented in this encounter Results CONSULT OCCUPATIONAL MED. (04/23/2008 3:48 PM CDT) Transcriptions Deepali Murcia - 04/24/2008 10:32 AM CDT F INA OCCUPATIONAL THERAPY DISCHARGE SUMMARY Shashank Hastings has been seen in [facility] 19 times since the initial evaluation on 12/21/2007. 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 The above deficits impact patient's ability to perform ADLs and IADLs independently. Treatment has included visual-perceptual evaluation and training, cognitive evaluation and inter vention, neuromuscular/motor skills and training, home program, energy management education, homemaking training, patient/caregiver education. At the conclusion of therapy patient is independent with basic ADLs a nd has returned to driving and work full-time. The patient does continue to demonstrate cognitive impairments with short-term memory, decreased attention, and decreased problem solving, which affects his abili ty to complete his IADLs safely. PATIENT/CLIENT SELF REPORT: Patient was last seen on 03/07/2008 and then was a cancel due to no-show and no call received on 03/14/2008 and 03/21/2008. The patient called on 03/26/2008 and reported he would not be returning for outpatient therapies due t o financial concerns. Previously patient had stated he believed that he had made improvements with his cognitive deficits, as well as in his level of independence with ADLs and with return to work and driving. Patient did report that he was continuing to have ongoing fatigue as an issue and when not incorporating compensatory strategies for cognitive deficits. IMPAIRMENTS/FUNCTIONAL STATUS (TEST AND MEASURES): Please refer to last therapy session of 03/07/2008 and refer to progress note dated 03/14/2008. INTERVENTIONS THIS SESSION: None due to patient has not shown up for the past two sessions. PLAN OF CARE GOALS (to be met within 4 weeks): 1. Patient will demonstrate within func tional limit scores on Dynavision visual motor reaction time and divided attention task with alternating roles using Dynavision in preparation for safe return to IADLs and while managing distractions. Goal Progress: Go al not met. 2. Patient will complete complex proble m solving activity with 90% accuracy with minimal to moderate distractions in preparation for safe return to IADL and work. Goal Progress: Goal not met. 3. Patient will participate in moderate ly complex divided attention activity between two tasks with only two cues provided for redirection. Goal Progress: Goal not met. 4. Patient will demonstrate independent understanding of sensory precautions in order to accommodate for decreased sensation in left hand in preparation for return to work. Goal Progress: Progressing toward goals, but not fully met. ADAPTIVE EQUIPMENT ISSUED: Memory log b ook and pocket calendar. EDUCATIONAL NEEDS: Patient was provided with instruction in home exercise program, compensatory strategies for cognitive deficits, written material for emotions after a stroke, resources for support groups, resources with mental health/behavioral health. REASON FOR DISCHARGE: Patient being dis charged per patient request due to patient's financial concerns. 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 Thank you for referring Shashank escobar to Occupational Therapy. If you have questions, please call me at [phone]. Electronically signed on 04/25/2008 17: 17 by MAK SEARS/Althea MT: roberta Name: SHASHANK HASTINGS Account: [id number] : 1960 Visit Date: 03/26/2008 Sex: M Age: 47 Document: [id number] cc: Shashank Anne MD Deepali Murcia OTR REFERRAL documented in this encounter Visit Diagnoses Not on filedocumented in this encounter
--- OUTSIDE RECORDS SUMMARY | 2022-10-06 11:29 | XMS_ITS | Encounter Summary ---
:1960 Author Organization [facility] Address [address] [place] [address]. [place] [address] Care Team Providers Name Role Phone Unavailable Primary Care Provider Unavailable Encounter Details Date Type Department Care Team Description 05/12/2008 Results [facility] irena, Shashank Linares MD [facility] Results [facility] [address] [address] [place], [place] [phone] (Wo rk) Social History Tobacco Use Types Packs/Day Years Used Date Smoking Tobacco: Never Assessed Sex Assigned at Date Recorded Not on file documented as of this encounter Plan of Treatment Not on filedocumented as of this encounter Procedures Procedure Name Priority Date/Time Associated Diagnosis Comme [facility] MRI BRAIN W/O Routine 05/12/2008 9:06 AM Resul ts for this CONTRAST CDT procedure are i n the results section. documented in this encounter Results MRI BRAIN (05/12/2008 9:06 AM CDT) Anatomical Region Laterality Modality Other Specimen (Source) Anatomical Collection Method Collection Time Re ceived Time Location / / Volume Laterality 05/12/2008 9:06 AM CDT Impressions 05/12/2008 11:04 AM CDT MRI BRAIN WITHOUT CONTRAST ??May 12 8 9:06 AM HISTORY: Stroke symptoms. History of rig ht hemispheric stroke. Previous intra-arterial thrombolysis. TECHNIQUE: Multiplanar, multisequence MR I of the brain without gadolinium IV contrast material. COMPARISON: MRI 12/06/2007, CT scan 2007. FINDINGS: There is no evidence of an acu te infarct. Encephalomalacia is seen from the old infarct in the righ t insula. T2 hyperintensity is seen in the right frontal operculum omar cating gliosis. Gradient echo images show evidence of old petechial he morrhage in the areas of infarction. No acute infarct, hemorrhage or mass is present. Mucosal thickening is seen in the parana anuradha sinuses. The arteries at the base of the brain and the dural veno us sinuses are patent. IMPRESSION: Encephalomalacia and gliosis in the right middle cerebral artery territory where the patient had t he previous infarct. No acute abnormality. Shashank Boyd MD [facility] documented in this encounter Visit Diagnoses Not on filedocumented in this encounter
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
--- OUTSIDE RECORDS SUMMARY | 2022-10-06 11:29 | XMS_ITS | Encounter Summary ---
:1960 Author Organization [facility] Address [address] [facility] [place] [address] Care Team Providers Name Role Phone Lucero Fraire MD Primary Care Provider Encounter Details Date Type Department Care Team Description 10/20/2017 Medical Correspondence [facility] Scan, [facility] Health Info Mgmt Non-Provider ELECTROTHER APY ORDER Sr[facility] [address] [place] [address] Social History Tobacco Use Types Packs/Day Years [...] on filedocumented in this encounter Care Teams Waste Treatment Operator Relationship Specialty Start Date End Date Lucero Fraire MD PCP - General 10/20/17 [facility] [address] [place] [address] documented as of this encounter
--- OUTSIDE RECORDS SUMMARY | 2022-10-06 11:29 | XMS_ITS | Encounter Summary ---
:1960 Author Organization [facility] Address [facility] access hospital[facility] [place] [address] Care Team Providers Name Role Phone Unavailable Primary Care Provider Unavailable Encounter Details Date Type Department Care Team Description 06/16/2009 Emergency room [facility], Hospital Results MD EMERGENCY PHYSIC HEENA HUNTER [address] [facility] [address] [place], [place] [id number] (Wo rk) Social History Tobacco Use Types Packs/Day Years Used Date Smoking Tobacco: Never Assessed Sex Assigned at Date Recorded Not on file documented as of this encounter Progress Notes Omega [facility] - 06/28/2009 6:41 PM CDT FINAL CHIEF COMPLAINT: Problems passing urine. HISTORY OF PRESENT ILLNESS: Shashank Hastings is a 48-year-old male who woke up this morning with a little bit lower abdominal pain, just kind of slight but then when he went to urinate he had blood in his urine and just in the last few hours, no fevers. It does burn though. He had no problems during the day yesterday, just kind of woke up with this, this morning. He has never had this kind of thing before. PAST MEDICAL HISTORY: He has had a stroke. He has history of high cholesterol, gastroesophageal reflux disease and depression. MEDICATIONS: Simvastatin, Nexium, Prozac and aspirin. ALLERGIES: None known. REVIEW OF SYSTEMS: All systems negative except as stated above. SOCIAL HISTORY: He is . He works in [employer] for [employer] [facility]. PHYSICAL EXAMINATION: VITAL SIGNS: Temperature 97.6, pulse 67, respirations 16, blood pressure 119/77 and O2 saturation 98%. GENERAL: The patient is alert, cooperative and in no respiratory distress. A gentleman who looks stated age with normal body habitus. HEENT: Conjunctivae are clear. ENT, nares and oropharynx look normal without erythema or lesion. RESPIRATORY: Clear to auscultation. No rub, rales, rhonchi or wheeze. CARDIOVASCULAR: Regular rate and rhythm without murmur. ABDOMEN: Soft and nondistended, no real tenderness of any significance. GENITOURINARY: No CVA tenderness. MUSCULOSKELETAL: Normal. No clubbing, cyanosis or edema. SKIN: Well perfused, no rash. NEUROLOGIC: He is alert and oriented x3. EMERGENCY DEPARTMENT COURSE: Urinalysis was sent showing large amount of blood, large leukocyte esterase, greater than 182 white blood cells, 28 red blood cells, a few bacteria and white blood cell clumps. Urine culture is sent and pending. CLINICAL IMPRESSION: Urinary tract infection in a 48-year-old male. He is going to need followup, culture was done. I put him on Ciprofloxacin 500 mg to be taken twice a day for 10 days. I want him topush fluids, get plenty of rest, follow-up within a week's time for recheck and he was given instructions on what to watch for and what to be concerned about such as fever, worsening pain or other symptoms, then he should get rechecked. Electronically signed on 06/28/2009 18:41 by [facility] MD MT: [id number] Name: SHASHANK HASTINGS MRN: [id number] Account: [id number] : 1960 Visit Date: 06/16/2009 Document: [id number] cc: Kameron German MD documented in this encounter Plan of Treatment Not on filedocumented as of this encounter Visit Diagnoses Not on filedocumented in this encounter
--- OUTSIDE RECORDS SUMMARY | 2022-10-06 11:29 | XMS_ITS | Encounter Summary ---
:1960 Author Organization [facility] Address [address] [place] [address]. [place] [address] Care Team Providers Name Role Phone Lucero Fraire MD Primary Care Provider Reason for Visit Reason Comments Forms [facility] Work Comp HCPR form for DOI: 08/15/15 Encounter Details Date Type Department Care Team Description 01/19/2018 Documentation Only Kameron Solomon Forms ([facility] Work [facility] MD Shashank Comp HCPR form for [address] [place] [address] DOI: [address] [place] [id number] Social History Tobacco Use Types Packs/Day Years Used Date Smoking Tobacco: Never Smokeless Tobacco: Never Alcohol Use Standard Drinks/Week Comments No 0 (1 standard drink = 0.6 oz pure alcoho l) Sex Assigned at Date Recorded Not on file documented as of this encounter Progress Notes Trinidad Sutton - 01/19/2018 2:07 PM CST Date Received: 01/19/18 Form Type: [facility] HCPR form Doctor: Tatiana Morales Status: 03/08/18 Completed form fax'd to [facility] Ins @ and scanned into [employer]. Trinidad Sutton, Admin Coord. II, Orthopaedics documented in this encounter Plan of Treatment Not on filedocumented as of this encounter Visit Diagnoses Not on filedocumented in this encounter Care Teams Organic Chemist Relationship Specialty Start Date End Date Lucero Fraire MD PCP - General 10/20/17 [facility] [address] [place] [id number] documented as of this encounter
--- OUTSIDE RECORDS SUMMARY | 2022-10-06 11:29 | XMS_ITS | Encounter Summary ---
:1960 Author Organization [facility] Address [address] [place] [address]. [place] [address] Care Team Providers Name Role Phone Lucero Fraire MD Primary Care Provider Reason for Referral - Closed Specialty Diagnoses / Procedures Referred By Contact Refer red To Contact Diagnoses Other chronic pain Carmita Morales MD [address] [place] [address] [address] [place], [place] [address] Referral ID Status Reason Start Date Expiration Date Visits Requ ested Visits Authorized [id number] Closed 12/19/2017 12/19/2018 1 1 [employer] Reason for Visit Reason Comments RECHECK f/u MRI and EMG. Left fib/ti b injury, W/C Encounter Details Date Type Department Care Team Description 12/19/2017 Office Visit [facility] Carmita Morales, [facility] (Primary Dx) [address] [place] [address] [address] [place] [id number] [phone] (Wo rk) Social History Tobacco Use Types Packs/Day Years Used Date Smoking Tobacco: Never Smokeless Tobacco: Never Alcohol Use Standard Drinks/Week Comments No 0 (1 standard drink = 0.6 oz pure alcoho l) Sex Assigned at Date Recorded Not on file documented as of this encounter Progress Notes Carmita Morales MD - 12/19/2017 6:07 PM CST Service Date: 12/19/2017 HISTORY OF PRESENT ILLNESS: Carlo is now 3 months status post hardware removal, left upper tibiofibular joint following a fusion. The CT had demonstrated the fusion had completed; however, he reported that removing the screws was of no value in alleviating his pain. He reports the pain is debilitating. He reports the pain in his left upper fibula to be a constant 8 and at times 10/10. He reports numbness in the outer aspect of his leg that he notes in all 5 toes with each step. PHYSICAL EXAMINATION: Exam today and previous exams demonstrate range of motion of the knee to be 10-120 degrees. There is no effusion. There is no focal tenderness other than at the fibular head proximally. There is a negative Tinel's at his peroneal nerve. Peroneal nerve motor function is normal. He reports hypoesthesia's in the lateral aspect of his leg and over the dorsum of his foot. He has no resisted pain. Gait pattern demonstrates an episodic hesitant gait, as if a cog willing gait. There isno true antalgia, as he spends equal amounts of time on the left lower extremity as the right lower extremity. PAST MEDICAL HISTORY: Reviewed. REVIEW OF SYSTEMS: Reviewed. PHYSICAL EXAMINATION: He is alert and oriented x3. His affect is normal. He rises from the chair with assistance of the side rails and limps in a nonantalgic fashion. His incision is healed abundantly. The ligament exam is normal. There is no calf pain. Patella tracking is normal. IMAGING: AP, lateral x-ray of the knee shows fusion of the tibia to the fibula. CT scan shows fusionof the fibula to the tibia. Hardware is removed. On last visit I ordered an MRI scan of his knee to see if there was any intra-articular pathology that was not evident on clinical exam. The menisci, hyalin cartilage, cruciate ligaments and collateral ligaments are all normal on the MRI. The MRI shows callus between the fibular head and the tibia. The radiologist reports some lucency between the 2 bones with what is described as mild actual solid bony bridging. ASSESSMENT: Persistent lateral proximal tibiofibular area pain with a solid bone union between the proximal tibia and fibula. DISCUSSION: I cannot explain Carlo's persistent pain. He reports that none of the surgical treatment or any of the therapeutic modalities have been of benefit other than the H-wave therapy. He states that this actually allows him to feel better after prolonged treatment. TREATMENT: There is no further surgical treatment that I can see that would be of benefit to Carlo. I believe he needs a Physical Medicine evaluation, consideration of non-opiate pain management and a reintroduction and work hardening. I will refer him to physical therapy and a structured return to activ ities program are now necessary. I would like to have him see Dr. Vitaly Miramontes at [facility]. cc:Vitaly Miramontes MD [facility] CARMITA MORALES MD MT: ML Name: SHASHANK HASTINGS Account: [id number] : 1960 Service Date: 12/19/2017 Document: [id number] [employer] Carmita Morales MD - 12/19/2017 3:45 PM CST Answers for HPI/ROS submitted by the patient on 12/19/2017 General Symptoms: No Skin Symptoms: No HENT Symptoms: No EYE SYMPTOMS: No HEART SYMPTOMS: No LUNG SYMPTOMS: No INTESTINAL SYMPTOMS: No URINARY SYMPTOMS: No REPRODUCTIVE SYMPTOMS: No SKELETAL SYMPTOMS: Yes BLOOD SYMPTOMS: No NERVOUS SYSTEM SYMPTOMS: Yes MENTAL HEALTH SYMPTOMS: No Back pain: No Muscle aches: Yes Neck pain: Yes Swollen joints: No Joint pain: Yes Bone pain: Yes Muscle cramps: No Muscle weakness: Yes Joint stiffness: No Bone fracture: No Trouble with coordination: Yes Dizziness or trouble with balance: Yes Fainting or black-out spells: No Memory loss: No Headache: Yes Seizures: No Speech problems: No Tingling: Yes Tremor: No Weakness: Yes Difficulty walking: Yes Paralysis: No Numbness: Yes [employer] documented in this encounter Plan of Treatment Scheduled Referrals Name Type Priority Associated Diagnoses Order S chedule PAIN MANAGEMENT REFERRAL Referral Routine Other chronic pa in Ordered: 12/19/2017 documented as of this encounter Visit Diagnoses Diagnosis Other chronic pain - Primary documented in this encounter Care Teams Director Physical Therapy Relationship Specialty Start Date End Date Lucero Fraire MD PCP - General 10/20/17 [facility] [address] [place] [address] documented as of this encounter
--- OUTSIDE RECORDS SUMMARY | 2022-10-06 11:29 | XMS_ITS | Encounter Summary ---
:1960 Author Organization [facility] Address [address] [place] [address]. [place] [address] Care Team Providers Name Role Phone Unavailable Primary Care Provider Unavailable Encounter Details Date Type Department Care Team Description 11/23/2010 Results Only [facility] Results MD Nisha [address] [facility] [address] [place], [place] [id number] (Wo rk) Social History Tobacco Use Types Packs/Day Years Used Date Smoking Tobacco: Never Assessed Sex Assigned at Date Recorded Not on file documented as of this encounter Plan of Treatment Not on filedocumented as of this encounter Procedures Procedure Name Priority Date/Time Associated Diagnosis Comme nts EXERCISE STRESS Routine 11/23/2010 3:51 PM Result s for this TEST HOME HEALTH SPECIALIST procedure are i n the results section. documented in this encounter Results Stress test, tracing only (11/23/2010 3:51 PM HOME HEALTH SPECIALIST) Component Value Ref Test Analysis Performed At [facility] Method Time Signature IMAGECAST RADIOLOGY RESULT SHASHANK HASTINGS RESULTS ?? PROCEDURE PERFORMED: ??Stress ECG. ?? INDICATION FOR STUDY: ??Abnormal EKG on a sleep study. ?? TEST SUMMARY: ??The patient exercised according to a Blaine p rotocol for 10 minutes and 5 seconds achieving a work level maximum of 11.8 METS. ??Resting heart rate 89 beats per minute slava to a max imal of 162 beats per minute. ??This value represents 96% of maximal age-predicted heart rate. ??Resting blood pressure 110/74 ro se to a maximal of 140/70. ??Rate pressure product was 22,680. ??Mora t was stopped due to fatigue. ??The patient did not experience any reproducible symptoms during the test. ??Baseline electrocar diogram reveals a normal sinus rhythm with a heart rate of 86 beats per minute, rightward axis deviation, normal ST and T wave segme nts. ?? During exercise, rare PVC is noted. ??No arrhythmias noted. ??At peak exercise there is no change in ST segments. ?? CONCLUSION: ??Adequate cardiac workload, good functional aer obic capacity. ??Negative stress ECG for evidence of arrhythmia o r ischemia. ?? cc: ??Timothy Mcgraw MD Specimen (Source) Anatomical Collection Method Collection Time Re ceived Time Location / / Volume Laterality 11/23/2010 3:51 PM HOME HEALTH SPECIALIST Timothy Mcgraw MD [facility] Performing Organization Address City/State/ZIP Code Phon e Number RADIOLOGY RESULTS documented in this encounter Visit Diagnoses Not on filedocumented in this encounter
--- OUTSIDE RECORDS SUMMARY | 2022-10-06 11:29 | XMS_ITS | Encounter Summary ---
:1960 Author Organization [facility] Address [address] [place] [address]. [place] [address] Care Team Providers Name Role Phone Unavailable Primary Care Provider Unavailable Encounter Details Date Type Department Care Team Description [facility]2009 [facility] Results [address] [address] (Wo rk) Social History Tobacco Use Types Packs/Day Years Used Date Smoking Tobacco: Never Assessed Sex Assigned at Date Recorded Not on file documented as of this encounter Plan of Treatment Not on filedocumented as of this encounter Procedures Procedure Name Priority Date/Time Associated Diagnosis Comme nts MRI BRAIN W/O Routine 08/21/2009 4:50 PM Resul ts for this CONTRAST CDT procedure are i n the results section. documented in this encounter Results MRI BRAIN (08/21/2009 4:50 PM CDT) Anatomical Region Laterality Modality Other Specimen (Source) Anatomical Collection Method Collection Time Re ceived Time Location / / Volume Laterality 08/21/2009 4:50 PM CDT Impressions 08/22/2009 10:00 AM CDT MRI BRAIN WITHOUT AND WITH CONTRAST ?? at 4:50 PM HISTORY: Severe headaches. History of ri ght middle cerebral artery stroke. TECHNIQUE: Routine pulse sequences witho ut and with contrast. 18 mL of Magnevist given. COMPARISON: 05/12/2008. FINDINGS: Diffusion-weighted images do n ot show any evidence for an acute infarct or any intracranial hemorr nadege. There is some encephalomalacia in the right middle cer ebral artery territory consistent with an old infarct. It is no t appreciably changed. There is evidence of some old hemosiderin in t his area which is also stable. The remainder of the brain parenchyma is normal. Ventricles and subarachnoid spaces are normal. Vascular structures are patent at the skull base. Postcontrast images do not s how any abnormal areas of enhancement or any focal mass lesions. IMPRESSION: Old right middle cerebral ar [place] territory infarct unchanged from 05/12/2008. No evidence f or any acute process. Kameron German MD [facility] documented in this encounter Visit Diagnoses Not on filedocumented in this encounter
--- OUTSIDE RECORDS SUMMARY | 2022-10-06 11:29 | XMS_ITS | Encounter Summary ---
:1960 Author Organization [address] [place] [address] Care Team Providers Name Role Phone Unavailable Primary Care Provider Unavailable Encounter Details Date Type Department Care Team Description 03/21/[address] [facility] Isabella Maciel, [employer] Hospital Results [address] [address] (Wo rk) Social History Tobacco Use Types Packs/Day Years Used Date Smoking Tobacco: Never Assessed Sex Assigned at Date Recorded Not on file documented as of this encounter Procedure Notes Isabella Maciel, [employer] - 04/08/2008 9:12 AM CDTAssociated Order(s): CONSULT SPEECH THERAPY FINAL SPEECH-LANGUAGE PATHOLOGY DISCHARGE REPORT PATIENT INFORMATION: Mr. Hastings experienced a right middle cerebral artery CVA with direct TPAon 12/05/07. Please refer to the initial evaluation report dated 12/21/07 for further details of past medical history. Mr. Hastings was seen for a total of 19 visits between initial evaluation and 03/12/08. He reported the need to cancel further visits due to insurance concerns on his behalf, therefore, therapy was discontinued. THERAPY PROGRESS: 1. Goal met: Complex level auditory comprehension tasks for 6-7 sentence length information with 80% accuracy completed independently. Auditory Perception Training (APT) lesson 9=100% accuracy independently without cues. 2. Goal met: Visual and auditory recall for daily events with minimal assistance for use of memory book and other compensatory strategies with assistance . Recalled instructions after five day delay from presentation with 100% accuracy on 02/27/08. 3. Goal not met: Memory recall of visual and auditory information after two day delay from presentation with 85% accuracy and moderate assistance. Continued difficulty experienced after multiple day delay presentation such as patient forgetting where he left his coat two days previously or forgettingappointments and not referring to his memory book. 4. Goal not met: Complex multi-step logic for daily needs at home and return to work with 80% accuracy independently. Complex logic varied from 50% to 100% accuracy dependent on complexity of therapy task. 5. Goal met: Alternating and divided attention for 60 minutes independently without breaking concentration or becoming off topic. Performance improved across Nintendo DS activities such as baseball, boxing, Brain Age activities. DISCHARGE SUMMARY AND RECOMMENDATIONS: Mild impairments persist in recall after a delay and complexmulti-step logic. Strengths include strong motivation and excellent recovery so far. Speech languagepathology services are discontinued at this time based on patient request. Thank you for allowing me to work with Mr. Hastings. He is a pleasure and a jemma to work with. Heis motivated for positive change and is open to trying new techniques. I wish him the best of luck in the future. Please call with any questions at [phone]. Electronically signed on 04/10/2008 08:12 by ISABELLA MACIEL MA,CCC-[employer] G[employer]ATER MT: roberta Name: SHASHANK HASTINGS Account: [id number] : 1960 Visit Date: 03/21/2008 Sex: M Age: 47 Document: [id number] cc: Patient documented in this encounter Plan of Treatment Not on filedocumented as of this encounter Procedures Procedure Name Priority Date/Time Associated Diagnosis Comme nts ZZ CONSULT SPEECH 04/05/2008 2:54 PM Resu lts for this THERAPY CDT procedure are i n the results section. documented in this encounter Results CONSULT SPEECH THERAPY (04/05/2008 2:54 PM CDT) Transcriptions Isabella Maciel SLP - 04/08/2008 9:12 AM CDT FINAL SPEECH-LANGUAGE PATHOLOGY DISCHARGE REPORT PATIENT INFORMATION: Mr. Hastings ex perienced a right middle cerebral artery CVA with direct TPA on 12/05/07. Please refer to the initial evaluation report dated 12/21/07 for further details of past medical history. Mr. Hastings was seen for a total of 19 visits between initial evaluation and 03/12/08. He reported the need to cancel further visits due to insurance concerns on his behalf, therefore, therapy was discontinued. THERAPY PROGRESS: 1. Goal met: Complex level auditory com prehension tasks for 6-7 sentence length information with 80% accuracy completed independently. Auditory Perception Training (APT) lesson 9=100% accuracy independently without cues. 2. Goal met: Visual and auditory recall for daily events with minimal assistance for use of memory book and other compensatory strategies with assistance . Recalled instructions after five day delay from presentation with 100% accuracy on 02/27/08. 3. Goal not met: Memory recall of visua l and auditory information after two day delay from presentation with 85% accuracy and moderate assistance. Continued difficulty experienced after multiple day delay presentation such as patient forgetting where he left his coat two days previously or forgetting appointments and not referring to his memory book. 4. Goal not met: Complex multi-step log ic for daily needs at home and return to work with 80% accuracy independently. Complex logic varied from 50% to 100% accuracy dependent on complexity of therapy task. 5. Goal met: Alternating and divided at tention for 60 minutes independently without breaking concentration or becoming off topic. Performance improved across Nintendo DS activities such as baseball, boxing, Brain Age activities. DISCHARGE SUMMARY AND RECOMMENDATIONS: Mild impairments persist in recall after a delay and complex multi-step logic. Strengths include strong motivation and excellent recovery so far. Speech language pathology services are discontinued at this time b ased on patient request. Thank you for allowing me to work with Mr. Hastings. He is a pleasure and a jemma to work with. He is motivated for positive change and is open to trying new techniques. I wish him the best of luck in the future. Please call with any questions at [phone]. Electronically signed on 04/10/2008 08: 12 by ISABELLA MACIEL MA,CCC-[employer] G[employer] MT: roberta Name: SHASHANK HASTINGS MRN: [id number] Account: [id number] : 1960 Visit Date: 03/21/2008 Sex: M Age: 47 Document: [id number] cc: Patient Isabella Maciel [employer] REFERRAL documented in this encounter Visit Diagnoses Not on filedocumented in this encounter
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
--- OUTSIDE RECORDS SUMMARY | 2022-10-06 11:29 | XMS_ITS | Encounter Summary ---
:1960 Author Organization [facility] Address [address] [place] [address]. [place] [address] Care Team Providers Name Role Phone Unavailable Primary Care Provider Unavailable Encounter Details Date Type Department Care Team Description 02/24/2010 [facility] Results [address] [address] (Wo rk) Social History Tobacco Use Types Packs/Day Years Used Date Smoking Tobacco: Never Assessed Sex Assigned at Date Recorded Not on file documented as of this encounter Plan of Treatment Not on filedocumented as of this encounter Procedures Procedure Name Priority Date/Time Associated Diagnosis Comme [facility] RT X-RAY FOOT Routine 02/24/2010 2:46 PM Resu lts for this 3+ VW CDT procedure are i n the results section. documented in this encounter Results RT X-RAY FOOT 3+ VW (02/24/2010 2:46 PM CDT) Anatomical Region Laterality Modality Other Specimen (Source) Anatomical Collection Method Collection Time Re ceived Time Location / / Volume Laterality 02/24/2010 2:46 PM CDT Impressions 02/25/2010 8:39 AM CDT FOOT THREE OR MORE VIEWS RIGHT ??Feb 24, 2010 2:46 PM HISTORY: Injury two days ago. COMPARISON: None. FINDINGS: The fifth metatarsal head and the base of the fifth proximal phalanx appear eroded and irregular, sug gesting a chronic process. There is some adjacent soft tissue swell ing as well. No acute fracture or malalignment is evident. IMPRESSION: 1. No acute fracture or malalignment. 2. Chronic-appearing erosion of the fift h metatarsal head and the base of the fifth proximal phalanx. This appe arance could reflect rheumatoid arthritis or alternatively co uld be the sequelae of prior injury and chronic osteomyelitis. Clinic al correlation is requested. Kameron German MD GENERAL IMAGING documented in this encounter Visit Diagnoses Not on filedocumented in this encounter
--- OUTSIDE RECORDS SUMMARY | 2022-10-06 11:29 | XMS_ITS | Encounter Summary ---
:1960 Author Organization [facility] Address [address] [place] [address]. [place] [address] Care Team Providers Name Role Phone Lucero Fraire MD Primary Care Provider Reason for Visit (Routine) - Closed Specialty Diagnoses / Procedures Referred By Contact Refer red To Contact Radiology / Radiology. 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 [address] [facility] [address] [place] [phone] Social History Tobacco Use Types Packs/Day Years Used Date Smoking Tobacco: Never Smokeless Tobacco: Never Alcohol Use Standard Drinks/Week Comments No 0 (1 standard drink = 0.6 oz pure alcoho l) Sex Assigned at Date Recorded Not on file documented as of this encounter Medications at Time of Discharge Medication Sig Dispensed Refills Start Date End Date aspirin 81 MG tablet Take by mouth daily 0 HYDROcodone-acetaminophen Take 1-2 tablets by 15 tablet 0 1 12/06/2011 5-325 MG per tablet mouth every 4 hours as needed for pain. ibuprofen (ADVIL,MOTRIN) Take 1 tablet (800 mg) 20 tablet 0 04/15/2015 800 MG tablet by mouth every 8 hours as needed for moderate pain SIMVASTATIN PO 0 documented as of this encounter Plan of Treatment Not on filedocumented as of this encounter Procedures Procedure Name Priority Date/Time Associated Diagnosis Comme nts MR LOWER EXTREMITY Routine 10/26/2017 10:39 AM Chronic pain of left Results for this JOINT LEFT W/O MAINSPRING STRIP GAUGER knee procedure are in CONTRAST the results section. 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 I berenice pect there are degenerative changes elsewhere in this joint. No othe r abnormality is demonstrated. FATOUMATA LANDAVERDE MD Narrative 10/26/2017 11:15 AM MAINSPRING STRIP GAUGER MRI LEFT KNEE WITHOUT CONTRAST October 26, [...] is demonstrated. FATOUMATA LANDAVERDE MD Shantell Garcia IRRIGATION ENGINEER ASPHALT SCREED OPERATOR IMG MRI ORDERABLES documented in this encounter Visit Diagnoses Diagnosis Chronic pain of left knee Pain in joint, lower leg documented in this encounter Care Teams Black Belt Relationship Specialty Start Date End Date Lucero Fraire MD PCP - General 10/20/[address] [address] documented as of this encounter
--- OUTSIDE RECORDS SUMMARY | 2022-10-06 11:29 | XMS_ITS | Encounter Summary ---
:1960 Author Organization [facility] Address [address] [place] [address]. [place] [address] Care Team Providers Name Role Phone Unavailable Primary Care Provider Unavailable Encounter Details Date Type Department Care Team Description 10/07/2017 Orders Only [facility] Orthopaedic Carmen, Chun Crawford hronic pain of left Clinic knee (Primary Dx) [address] [place] [address] [phone] (Wo rk) Social History Tobacco Use Types Packs/Day Years Used Date Smoking Tobacco: Never Alcohol Use Standard Drinks/Week Comments No 0 (1 standard drink = 0.6 oz pure alcoho l) Sex Assigned at Date Recorded Not on file documented as of this encounter Plan of Treatment Not on filedocumented as of this encounter Results XR Knee LT 1/2 vw (10/17/2017 12:00 PM FIRE EXTINGUISHER INSPECTOR) Anatomical Region Laterality Modality Thigh, Knee, Leg Left Computed Radiography Specimen (Source) Anatomical Location Collection Method / Collectio n Time Received Time / Laterality Volume Impressions 10/17/2017 12:17 PM FIRE EXTINGUISHER INSPECTOR IMPRESSION: Postsurgical changes in the region of the left proximal tibia/left proximal fibula, otherwise no acute bone abnormality noted. DONTE RANDALL MD Narrative 10/17/2017 12:17 PM FIRE EXTINGUISHER INSPECTOR Exam: AP and lateral views of the left knee dated 10/17/2017. COMPARISON: Outside radiographs dated . CLINICAL HISTORY: Chronic pain. FINDINGS: AP and lateral views of the le ft knee were obtained. No large left knee joint effusion. Postsurg ical changes in the region of the left proximal tibia and left proxima l fibula. Procedure Note Donte Randall MD - 10/17/2017Form atting of this note might be different from the original. Exam: AP and lateral views of the left k nee dated 10/17/2017. COMPARISON: Outside radiographs dated . CLINICAL HISTORY: Chronic pain. FINDINGS: AP and lateral views of the le ft knee were obtained. No large left knee joint effusion. Postsurg ical changes in the region of the left proximal tibia and left proxima l fibula. IMPRESSION: Postsurgical changes in the region of the left proximal tibia/left proximal fibula, otherwise no acute bone abnormality noted. DONTE RNADALL MD Kameron Morales MD IMG DIAGNOSTIC IMAGING ORDER TERESA documented in this encounter Visit Diagnoses Diagnosis Chronic pain of left knee - Primary Pain in joint, lower leg Chronic pain of left knee Pain in joint, lower leg documented in this encounter
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
--- OUTSIDE RECORDS SUMMARY | 2022-10-06 11:29 | XMS_ITS | Encounter Summary ---
:1960 Author Organization [place] Address [address] [facility] [address] Care Team Providers Name Role Phone Kameron German MD Primary Care Provider Encounter Details Date Type Department Care Team Description 11/23/2010 Historic Results [facility] Heart Unknown, [address] [place] [address] Social History Tobacco Use Types Packs/Day Years Used Date Smoking Tobacco: Never Assessed Sex Assigned at Date Recorded Not on file documented as of this encounter Plan of Treatment Not on filedocumented as of this encounter Procedures Procedure Name Priority Date/Time Associated Diagnosis Comme nts NUCLEAR CARDIAC - HIM 11/23/2010 12:00 AM HEADLIGHT ASSEMBLER SCAN - ARCHIVE documented in this encounter Results NUCLEAR CARDIAC - HIM SCAN - ARCHIVE (11/23/2010 12:00 AM HEADLIGHT ASSEMBLER) Anatomical Region Laterality Modality Other Specimen (Source) Anatomical Location Collection Method / Collectio n Time Received Time / Laterality Volume 11/23/2010 Narrative This result has an attachment that is no t available. Provider Scan IMG [place] ORDERABLES documented in this encounter Visit Diagnoses Not on filedocumented in this encounter Care Teams Code Machine Operator Relationship Specialty Start Date End Date Kameron German MD PCP - General Family Practice 10/21/11 12/21/[address] [phone] documented as of this encounter
--- OUTSIDE RECORDS SUMMARY | 2022-10-06 11:29 | XMS_ITS | Encounter Summary ---
:1960 Author Organization [place] Address [address] [place] [address]. [place] [address] Care Team Providers Name Role Phone Kameron German MD Primary Care Provider Reason for Visit Reason Comments Numbness left arm and leg note some c onfusion x 1345 today Encounter Details Date Type Department Care Team Description 10/21/2011 Emergency [facility] Royce Walsh N umbness and tingling in left hand; [facility] Emergency Dep t MD MADRID, tram, alterations of sensations [address] [facility] [id number] [facility] [phone] [place] [address] [id number] (Wo rk) Social History Tobacco Use Types Packs/Day Years Used Date Smoking Tobacco: Never Assessed Sex Assigned at Date Recorded Not on file documented as of this encounter Last Filed Vital Signs Vital Sign Reading Time Taken Comments Blood Pressure 119/83 10/21/2011 8:15 PM OFFAL ROLLER Pulse 73 10/21/2011 8:15 PM OFFAL ROLLER Temperature 37.1 ??C (98.8 ??F) 10/21/2011 3:54 PM OFFAL ROLLER Respiratory Rate 18 10/21/2011 8:15 PM OFFAL ROLLER Oxygen Saturation 99% 10/21/2011 8:15 PM OFFAL ROLLER Inhaled Oxygen Concentration - - Weight 88.5 kg (195 lb) 10/21/2011 3:54 PM OFFAL ROLLER Height 172.7 cm (5' 8) 10/21/2011 3:54 PM OFFAL ROLLER Body Mass Index 29.65 10/21/2011 3:54 PM OFFAL ROLLER documented in this encounter Discharge Instructions Discharge InstructionsRoyce Walsh MD - 10/21/2011 8:16 PM CST ADULT ASA DAILY L ROLLER documented in this encounter ED Notes Royce Walsh MD - 10/21/2011 4:17 PM CST History Chief Complaint: Numbness HPI Shashank Hastings is a 51 year old male with history of CVA who presents with left side numbness.The patient states 4 years ago he experienced a right sided stroke that was treated with TPA. He states at the time he experienced left side numbness and was unable to recognize his own left arm as he was washing his hands. He states he still has residual mild numbness on his left side as well as somegeneralized weakness and occasional right sided headaches. He states at 1345 today he noticed his left thumb became red, then experienced increased numbness and tingling radiating from his left hand upto his elbow as well as in his left leg. He states he still recognized his left arm as his own and states his left leg tingling is improving. He reports shortly after he attempted to drive here to see his doctor but could not recall how to get here. He currently denies any focal weakness, vision changes, headache, nausea, or vomiting. Allergies: No Known Allergies Medications: Aspirin 81 mg Past Medical History: Cereberal artery occlusion with cerebral infarction Past Surgical History: History reviewed. No pertinent past surgical history. Family / Social History: Patient presents to the ED with his . Review of Systems Eyes: Negative for visual disturbance. Gastrointestinal: Negative for nausea and vomiting. Neurological: Negative for weakness (focal) and headaches. Positive for numbness and tingling radiating from left hand up to left elbow and left leg. Positivefor being able to recognize his own left arm as his own. Psychiatric/Behavioral: Positive for confusion (unable to recall directions). All other systems reviewed and are negative. Physical Exam First Vitals: BP: 145/95 mmHg Heart Rate: 72 Temp: 98.8 ??F (37.1 ??C) Resp: 20 Height: 172.7 cm (5' 8) Weight: 88.451 kg (195 lb) SpO2: 99 % Physical Exam Constitutional: He appears well-developed. HENT: Head: Normocephalic. Right Ear: Hearing normal. Left Ear: Hearing normal. Nose: Nose normal. Mouth/Throat: Oropharynx is clear and moist and mucous membranes are normal. Eyes: Conjunctivae are normal. Pupils are equal, round, and reactive to light. Neck: Normal range of motion. Neck supple. Cardiovascular: Normal rate and regular rhythm. Pulmonary/Chest: Effort normal and breath sounds normal. He has no wheezes. He has no rhonchi. He has no rales. Abdominal: Soft. He exhibits no mass. There is no hepatosplenomegaly. No tenderness. He has no rebound. Musculoskeletal: Normal range of motion. Lymphadenopathy: No lymphadenopathy Neurological: He is alert. Cranial nerves 2-12 grossly intact. Good warp clamper. Skin: Skin is warm and dry. Psychiatric: He has a normal mood and affect. Emergency Department Course ECG: Indication: Eval for ischemia/infarct Findings: Normal sinus rhythm, ventricular rate 73 bpm. OR Interval: 182 ms QRS Duration: 96 ms QT/QTc: 386/425 ms R wave axis: 47 Imaging: CT Head w/o Contrast: Old right frontal infarct. No evidence for intracranial hemorrhage or any acute process. Reading per Radiology. MRI Brain w/ & w/o contrast: 1. Old right posterior frontal infarct. 2. No evidence for acute hemorrhage, acute infarct, hydrocephalus or any focal mass lesions. Reading per Radiology. MRA Head w/o Contrast: Negative MR angiography of the [place]. Reading per Radiology. MRA Neck w/o Contrast: Negative MR angiography of the neck with and without contrast. Reading per Radiology. Laboratory: CBC: WBC 12.5 (high), Neutrophils 37.7 (low), o/w WNL (HGB 14.5, PLT 344) BMP: WNL (Cr 0.88) INR: 0.99 (WNL) Interventions: Normal Saline 1.0 L IV injection Aspirin 325 mg tablet PO Emergency Department Course: I reviewed the patient's medical record. IV inserted. 1616 The patient was seen and examined by myself. I discussed the course of care with the patient including laboratory and diagnostic studies. She understands and is agreeable to the plan. [address] Patricia from the patient's neurology clinic. He would like an MRI/MRA performed of the patient's head and neck. I updated the patient with this plan and he agrees. 2007 Recheck. I discussed the laboratory and radiology results with the patient and he understands. The patient will be discharged home to follow up with primary care doctor per discharge instructions.Indications for return to the ED were discussed and the patient understands. All questions were answered prior to discharge. Impression & Plan Medical Decision Making: This gentleman presents with some numbness in his left forearm and left hand. He has had a known CVAaffecting that side 4 years ago, he had TPA at the time. He does take one baby Aspirin per day. Medical decision making: To determine whether there is expansion of the old CVA or new CVA. The CT shows nothing new. I did discuss with the neurologist from [facility] and they suggested to do an MRI/MRAand they are negative with nothing new. The carotids and basilar arteries are open. Per this discussion I will be giving him one adult Aspirin now and he should take one daily. He should see his neurologist in the coming week or two for follow up. He does have an appointment at [facility] on the . Condition at this time is stable. Diagnosis: 1. Numbness, left arm from old CVA I, Natasha Odalyshenrry, am serving as a scribe on 10/21/2011 at 4:17 PM to personally document services performed by Dr. Royce Walsh based on my observations and the provider's statements to me. Royce Walsh MD 10/21/112020 L ROLLER Doreen Mishra - 10/21/2011 4:08 PM CST Labs drawn with IV insertion and held L ROLLER documented in this encounter Miscellaneous Notes Initial Assessments - Karlos Provider - 03/30/2012 3:33 PM CDT documented in this encounter Plan of Treatment Not on filedocumented as of this encounter Procedures Procedure Name Priority Date/Time Associated Comments Diagnosis MR BRAIN W/O & W STAT 10/21/2011 7:52 PM Resul ts for this CONTRAST OFFAL ROLLER procedure are i n the results section. MRA NECK (CAROTIDS) STAT 10/21/2011 7:52 PM Re sults for this W/O & W CONTRAST OFFAL ROLLER procedure a re in the results section. MRA BRAIN (ANGOON OF STAT 10/21/2011 7:42 PM R esults for this [place]) W/O CONTRAST OFFAL ROLLER procedu re are in the results section. CT HEAD W/O CONTRAST STAT 10/21/2011 5:09 PM R esults for this OFFAL ROLLER procedure are i n the results section. CBC WITH PLATELETS & STAT 10/21/2011 4:15 PM R esults for this DIFFERENTIAL OFFAL ROLLER procedure are i n the results section. INR STAT 10/21/2011 4:15 PM Results f or this OFFAL ROLLER procedure are i n the results section. BASIC METABOLIC PANEL STAT 10/21/2011 4:15 PM Results for this OFFAL ROLLER procedure are i n the results section. HIM ECG SCAN STAT 10/21/2011 documented in this encounter Results Neck MRA w & w/o contrast - STROKE PROTOCOL (10/21/2011 7:52 PM OFFAL ROLLER) Anatomical Region Laterality Modality Neck, SUBRAD MR NEURO, P MR NEURO O[place] r Specimen (Source) Anatomical Collection Method Collection Time Re ceived Time Location / / Volume Laterality 10/21/2011 7:52 PM OFFAL ROLLER Impressions 10/22/2011 10:15 AM OFFAL ROLLER MRA CAROTIDS ??Oct 21, 2011 7:52:00 PM HISTORY: Left hand numbness. TECHNIQUE: MR angiography was performed through the neck without and with contrast. Stenosis of carotid arter ies was based on comparing proximal ICA with distal ICA. 10 mL of G adavist injected. COMPARISON: 12/06/2007. FINDINGS: The brachiocephalic vessels ar e patent off the arch. The carotid and vertebral systems were well visualized. The carotid bifurcations are widely patent. There is no evidence for a stenosis or dissection. ?? IMPRESSION: Negative MR angiography of t he neck without and with contrast. Royce Walsh MD IMG MRI ORDERABLES Brain MRI w & w/o contrast - STROKE PROTOCOL (10/21/2011 7:52 PM OFFAL ROLLER) Anatomical Region Laterality Modality Head, SUBRAD MR NEURO, [facility] MR NEURO Othe r Specimen (Source) Anatomical Collection Method Collection Time Re ceived Time Location / / Volume Laterality 10/21/2011 7:52 PM OFFAL ROLLER Impressions 10/22/2011 10:15 AM OFFAL ROLLER MRI BRAIN WITH AND WITHOUT CONTRAST ??De c 2010 7:52:00 PM HISTORY: Left hand numbness. History of stroke. TECHNIQUE: Multiplanar, multisequence im ages were obtained through the brain without and with contrast. 10 mL o f Gadavist injected. COMPARISON: 08/21/2009. FINDINGS: Diffusion-weighted images are normal. There is no evidence for intracranial hemorrhage or acute inf arct. There is an old right posterior frontal infarct with some tiny amount of hemosiderin or calcification. The brain parenchyma is o therwise normal including the brainstem and cerebellum. Vascular struc tures are patent at the skull base. Postcontrast images do not show an y abnormal areas of enhancement or any focal mass lesions. IMPRESSION: 1. Old right posterior frontal infarct. 2. No evidence for acute hemorrhage, acu te infarct, hydrocephalus, or any focal mass lesions. Royce Walsh MD [facility] MRI ORDERABLES Head MRA w/o contrast - STROKE PROTOCOL (10/21/2011 7:42 PM OFFAL ROLLER) Anatomical Region Laterality Modality Head, SUBRAD MR NEURO, [facility] MR NEURO Othe r Specimen (Source) Anatomical Collection Method Collection Time Re ceived Time Location / / Volume Laterality 10/21/2011 7:42 PM OFFAL ROLLER Impressions 10/21/2011 7:47 PM OFFAL ROLLER MRA HEAD W/O CONTRAST* Oct 21, 2011 7:42: 00 PM HISTORY: Left hand numbness. TECHNIQUE: 3D [id number] MR angiogra phy was performed through the [place]. FINDINGS: The distal internal carotid ar teries, basilar artery, and proximal anterior, middle, and posterior cerebral arteries are patent. There is no evidence for any large vesse l occlusion or stenosis. There is no evidence for a saccular aneurysm. IMPRESSION: Negative MR angiography of t he [place]. Royce Walsh MD [facility] MRI ORDERABLES Head CT w/o contrast* (10/21/2011 5:09 PM OFFAL ROLLER) Anatomical Region Laterality Modality Head, SUBRAD CT NEURO, SUBRAD CT NEURO, P CT NEURO Computed Tomography Specimen (Source) Anatomical Collection Method Collection Time Re ceived Time Location / / Volume Laterality 10/21/2011 5:09 PM OFFAL ROLLER Impressions 10/22/2011 11:[address] HEAD WITHOUT CONTRAST ?? Oct 21, 2011 5:09:00 PM HISTORY: Left hand numbness. History of stroke. TECHNIQUE: Axial images were obtained th rough the brain without contrast. COMPARISON: 03/14/2008 CT and 08/21/2009 MR. FINDINGS: There is an old right posterof rontal infarct with secondary encephalomalacia. The brain parenchyma i s otherwise normal. There is no evidence for intracranial hemorrhage, acute infarct, mass effect, or skull fracture. IMPRESSION: Old right frontal infarct. N o evidence for intracranial hemorrhage or any acute process. Royce Walsh MD IMG CT ORDERABLES Basic metabolic panel (10/21/2011 4:15 PM OFFAL ROLLER) athologist Signature Sodium 142 133 - 144 [place] mmol/L [facility] Potassium 3.9 3.4 - 5.3 [place] mmol/L [facility] Chloride 103 94 - 109 [place] mmol/L [facility] Carbon Dioxide 31 20 - 32 [place] mmol/L [facility] Anion Gap 7 6 - 17 [place] mmol/L [facility] Glucose 83 60 - 99 [place] mg/dL [facility] Urea Nitrogen 24 7 - 30 [place] mg/dL [facility] Creatinine 0.88 0.66 - [facility] 1.25 mg/dL [facility] GFR Estimate >90 >60 [place] mL/min/1.[address] LAB GFR Estimate If >90 >60 [place] Black mL/min/1.7 [facility] m2 [facility] Calcium 8.6 8.5 - 10.4 [place] mg/dL [facility] Specimen Anatomical Collection Method Collection Time Receive d Time (Source) Location / / Volume Laterality Blood specimen 10/21/2011 4:15 PM 011 4:36 (specimen) OFFAL ROLLER PM OFFAL ROLLER Royce Walsh MD LAB - BLOOD ORDERABLES Performing Organization Address City/State/ZIP Code Phon e Number M [facility] [address] [place], [place] [address] [facility] INR (10/21/2011 4:15 PM OFFAL ROLLER) athologist Signature INR 0.99 0.86 - 1.14 [facility] Specimen Anatomical Collection Method Collection Time Receive d Time (Source) Location / / Volume Laterality Blood specimen 10/21/2011 4:15 PM 011 4:36 (specimen) OFFAL ROLLER PM OFFAL ROLLER Royce Walsh MD LAB - BLOOD ORDERABLES Performing Organization Address City/State/ZIP Code Phon e Number M [facility] [address] [place] [address] [facility] (ABNORMAL) CBC with platelets differential (10/21/2011 4:15 PM OFFAL ROLLER) [facility] Method Time Signature WBC 12.5 (H) 4.0 - [place] 11.0 [facility] 10e9/L [facility] RBC Count 4.93 4.4 - 5.9 [place] 10e12/L [facility] Hemoglobin 14.5 13.3 - [place] 17.7 g/dL [facility] Hematocrit 42.9 40.0 - [place] 53.0 % [facility] MCV 87 78 - 100 [place] fl [facility] MCH 29.4 26.5 - [place] 33.0 pg [facility] MCHC 33.8 31.5 - [place] 36.5 g/dL [facility] RDW 13.6 10.0 - [place] 15.0 % [facility] Platelet Count 344 150 - 450 [place] 10e9/L [facility] Diff Method Automated [facility] % Neutrophils 37.7 (L) 40 - 75 % [facility] % Lymphocytes 46.4 20 - 48 % [facility] % Monocytes 10.4 0 - 12 % [facility] % Eosinophils 4.5 0 - 6 % [facility] % Basophils 0.7 0 - 2 % [facility] % Immature 0.3 0 - 0.4 % [place] Granulocytes [facility] Absolute 4.7 1.6 - 8.3 [place] Neutrophil 10e9/L [facility] Absolute 5.8 (H) 0.8 - 5.3 [place] Lymphocytes 10e9/L [facility] Absolute 1.3 0.0 - 1.3 [place] Monocytes 10e9/L [facility] Absolute 0.6 0.0 - 0.7 [place] Eosinophils 10e9/L [facility] Absolute 0.1 0.0 - 0.2 [place] Basophils 10e9/L [facility] Abs Immature 0.0 0 - 0.03 [place] Granulocytes 10e9/L [facility] Reactive Lymphs Present [facility] Specimen Anatomical Collection Method Collection Time Receive d Time (Source) Location / / Volume Laterality Blood specimen 10/21/2011 4:15 PM 011 4:36 (specimen) OFFAL ROLLER PM OFFAL ROLLER Royce Walsh MD LAB - BLOOD ORDERABLES Performing Organization Address City/State/ZIP Code Phon e Number M [facility] [address] [place], [place] [address] [facility] ECG - HIM ECG Scan (10/21/2011) Narrative This result has an attachment that is no t available. Royce Walsh MD ECG ORDERABLES documented in this encounter Visit Diagnoses Diagnosis Numbness and tingling in left hand Disturbance of skin sensation CVA, old, alterations of sensations Alterations of sensations, late effect o f cerebrovascular disease documented in this encounter Administered Medications Inactive Administered Medications - up to 3 most recent administrations Medication Order MAR Action Action Date Dose Rate Site aspirin tablet 325 mg Given 10/21/2011 8:19 PM OFFAL ROLLER 325 mg 325 mg, Oral, ONCE, On Stefanie 10/21/11 at 2014, For 1 dose gadobutrol (GADAVIST) 1 mmol/mL injection 10 Given 11/2010 7:00 PM OFFAL ROLLER 10 mmol mmol 10 mmol (10 mL), Intravenous, ONCE, On Stefanie 10/21/11 at 1900, For 1 dose sodium chloride 0.9 % flush 60 mL Given 10/21/2011 7:00 PM OFFAL ROLLER 60 mLs 60 mL, Intravenous, ONCE, On Stefanie 10/21/11 at 1900, For 1 dose documented in this encounter Active and Recently Administered Medications Times are shown in OFFAL ROLLER. Scheduled Medication Order 10/19/2011 10/20/2011 10/21/2011 aspirin tablet 325 mg (COMPLETED) 2018 (Given - Provider: Doreen Mishra) 325 mg, Oral, ONCE, Stefanie 10/21/11 at 2015, For 1 dose gadobutrol (GADAVIST) 1 mmol/mL injection 10 mmol (COMPLETED) 1900 (Given - Provider: Christian Kim - Comment: 10 mL Gadavist injected.) 10 mL = 10 mmol, Intravenous, ONCE, Stefanie 10/21/11 at 1900, For 1 d ose sodium chloride 0.9 % flush 60 mL (COMPLETED) 1900 (Given - Provider: Christian Kim) 60 mL, Intravenous, ONCE, Stefanie 10/21/11 at 1900, For 1 dose documented in this encounter Care Teams Repairer Helper Relationship Specialty Start Date End Date Kameron German MD PCP - General Family Practice 10/21/11 12/21/[address] [phone] documented as of this encounter
--- OUTSIDE RECORDS SUMMARY | 2022-10-06 11:29 | XMS_ITS | Encounter Summary ---
:1960 Author Organization [place] Address [facility] [place] [address] Care Team Providers Name Role Phone Lucero Fraire MD Primary Care Provider Encounter Details Date Type Department Care Team Description 2017 Medical Correspondence [facility] Scan, COMPLIANCE REPORT Health Info Mgmt Non-Provider Srvcs [address] [place] [phone] Social History Tobacco Use Types Packs/Day Years Used Date Smoking Tobacco: Never Alcohol Use Standard Drinks/Week Comments No 0 (1 standard drink = 0.6 oz pure alcoho l) Sex Assigned at Date Recorded Not on file documented as of this encounter Plan of Treatment Not on filedocumented as of this encounter Visit Diagnoses Not on filedocumented in this encounter Care Teams Refuse Laborer Relationship Specialty Start Date End Date Lucero Fraire MD PCP - General 10/20/17 [place] [id number] [place] [address] documented as of this encounter
--- OUTSIDE RECORDS SUMMARY | 2022-10-06 11:29 | XMS_ITS | Encounter Summary ---
:1960 Author Organization [place] Address [facility] [place] [address] Care Team Providers Name Role Phone Lucero Fraire MD Primary Care Provider Encounter Details Date Type Department Care Team Description 01/13/2018 [facility] Correspond[facility] Scan [employer] PATIENT Health Info Mgmt Non-Provider COMMUNICATI ON Srvcs [address] [place] [phone] Social History Tobacco Use Types Packs/Day [...] on filedocumented in this encounter Care Teams Wood Gang Sawyer Relationship Specialty Start Date End Date Lucero Fraire MD PCP - General 10/20/17 [facility] [address] [place], [place] [id number] documented as of this encounter
--- OUTSIDE RECORDS SUMMARY | 2022-10-06 11:29 | XMS_ITS | Encounter Summary ---
:1960 Author Organization [place] Address [address] [place] [address]. [place] [address] Care Team Providers Name Role Phone Kameron German MD Primary Care Provider Reason for Visit Reason Comments Mass behind left ear Auth/Cert Specialty Diagnoses / Procedures Referred By Contact Refer red To Contact Radiology. Ultrasound [address] [place], [place] [address] Phone: Fax: Referral ID Status Reason Start Date Expiration Date Visits Requ ested Visits Authorized [id number] 1 1 Encounter Details Date Type Department Care Team Description 04/15/2015 [facility] Sree Meyer MD Cervical lymphadenitis [facility] [place] [address] [facility] [address] [address] [place] [address] [phone] (Wo rk) Social History Tobacco Use Types Packs/Day Years Used Date Smoking Tobacco: Never Alcohol Use Standard Drinks/Week Comments No 0 (1 standard drink = 0.6 oz pure alcoho l) Sex Assigned at Date Recorded Not on file documented as of this encounter Last Filed Vital Signs Vital Sign Reading Time Taken Comments Blood Pressure 140/99 04/15/2015 12:23 AM CDT Pulse 92 04/15/2015 12:23 AM CDT Temperature 36.7 ??C (98 ??F) 04/15/2015 12:23 AM CDT Respiratory Rate 16 04/15/2015 12:23 AM CDT Oxygen Saturation 98% 04/15/2015 12:23 AM CDT Inhaled Oxygen Concentration - - Weight 95.3 kg (210 lb) 04/15/2015 12:23 AM CDT Height 172.7 cm (5' 8) 04/15/2015 12:23 AM CDT Body Mass Index 31.93 04/15/2015 12:23 AM CDT documented in this encounter Discharge Instructions Discharge InstructionsZak Meyer MD - 04/15/2015 2:43 AM CDT Images from the original note were not included. Lymph Node Infection [Local, Antibiotic Treatment] You have a bacterial infection of the lymph node. The lymph nodes are part of the immune system and become swollen and tender when there is a nearby infection or inflammation. The lymph nodes are foundunder the jaw and along the side of the neck, in the armpits and in the groin. An infection or inflammation in the tissues nearby causes the lymph nodes to swell and become tender. When a bacterial infection occurs in the lymph node, it becomes very painful and the nearby skin gets red and warm. There may also be a fever. Antibiotics and hot compresses are used to treat this infection. The pain and redness will decrease over the next 7-10 days. Swelling may take several months to go away. Sometimes an ABSCESS (with pus) forms inside the lymph node. If this happens, antibiotics may not beenough to cure the infection. Minor Surgery may be needed to drain the pus. Home Care: 1. Take all of the antibiotic medicine exactly as prescribed until it is gone. Be careful not to miss any doses, especially during the first few days. 2. Make a hot compress by running hot water over a face cloth. Apply it to the sore area until it cools off. Repeat this for 20 minutes. Apply the hot compress three times a day for the first three days or until the pain and redness begin to improve. The heat will increase the blood flow to the area and speed the healing process. 3. You may use acetaminophen (Tylenol) or ibuprofen (Motrin, Advil) to control pain and fever, unless another medicine was prescribed for this. Do not use ibuprofen in children under six months of age.[NOTE: If you have chronic liver or kidney disease or ever had a stomach ulcer or GI bleeding, talk with your doctor before using these medicines.] (Aspirin should never be used in anyone under 18 years of age who is ill with a fever. It may cause severe liver damage.) Follow Up with your doctor or this facility after completion of the antibiotics or as directed. Get Prompt Medical Attention if any of the following occur: ?? Increasing redness, swelling or pain in the lymph node ?? Pus or fluid drainage from the lymph node ?? Difficulty breathing or swallowing ?? Fever remains over 100.5??F (38.0??C) oral or 101.5??F (38.3??C) rectal for more than 2 days of treatment ?? [id number] [employer]. [address] [place] [address], [place] [address]. All rights reserved. This information is not intended as a substitute for professional medical care. Always follow your healthcare professional's instructions. documented in this encounter Medications at Time of Discharge Medication Sig Dispensed Refills Start Date End Date HYDROcodone-acetaminophe Take 1-2 tablets by 15 tablet 0 n 5-325 MG per tablet mouth every 4 hours as needed for pain. ibuprofen (ADVIL,MOTRIN) Take 1 tablet (800 20 tablet 0 800 MG tablet mg) by mouth every 8 hours as needed for moderate pain amoxicillin-clavulanate Take 1 tablet by 20 tablet 0 201404/25/2015 (AUGMENTIN) 875-125 MG mouth 2 times daily per tablet for 10 days documented as of this encounter ED Notes Zak Meyer MD - 04/15/2015 1:14 AM CDT History Chief Complaint: Painful Scalp Swelling HPI Shashank Hastings is an otherwise healthy 54 year old male who presents with an area of painful swelling behind his left ear. The patient reports the onset of several areas of swelling on his his head around his scalp several days ago. He reports that these have remained constant, except for the area behind the left ear that was progressed in size an tenderness. He reports slight left ear pain. Henotes that he stayed in a hotel recently that may have had bed bugs. He denies fever or URI symptoms. He denies neck pain. He does report some moderate intermittent headaches. He denies recent medication use. He does not report any other concerns at this time. Allergies: The patient has no known drug allergies. 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 The patient is . The patient denies smoking and alcohol use. The patient presents with his . Review of Systems Constitutional: Negative for fever. HENT: Positive for ear pain. Musculoskeletal: Negative for neck pain. Skin: Positive for several areas of scalp swelling Neurological: Positive for headaches. All other systems reviewed and are negative. Physical Exam First Vitals: BP: 140/99 mmHg Pulse: 92 Temp: 98 ??F (36.7 ??C) Resp: 16 Height: 172.7 cm (5' 8) Weight: 95.255 kg (210 lb) SpO2: 98 % Physical Exam Vital signs and nursing notes reviewed. Constitutional: laying on gurney appears comfortable HENT: Oropharynx is clear and moist. TM's are normal. Eyes: Conjunctivae are normal bilaterally. Pupils equal Neck: normal range of motion Cardiovascular: Normal rate, regular rhythm, normal heart sounds. Pulmonary/Chest: Effort normal No respiratory distress. Musculoskeletal: No joint swelling or edema. Neurological: Alert and oriented. No focal weakness Skin: Skin is warm and dry. Area of soft tissue tenderness and swelling and induration posterior to the left ear, measures approximately 2-2.5 cm at widest area. No definitive mastoid tenderness or swelling. No fluctulance to the area. 3 other sub centimeter areas on the scalp that appear to be possible small boils. No pain with ROM of neck. No other areas of skin lesions or rash. Psych: normal affect Emergency Department Course Imaging: Radiographic findings were communicated with the Patient who voiced understanding of the findings. US neck, per radiology: Multiple nodes behind left ear and along neck (from 0.3-0.76 cm). No abscess seen. ED Course: I performed a physical examination of the patient as documented above. 0230: Discussed results with the patient. Findings and plan explained to the Patient. Patient discharged home, with instructions regarding supportive care, medications, and reasons to return as well as the importance of close follow-up was reviewed. Impression & Plan Medical Decision Making: Shashank Hastings is a 54 year old male who presents with a painful, tender area posterior to hisleft ear. This was slightly tender but non-fluctuant. He also had some subtle lesions that could be small boils of the scalp. There are no signs of significant cellulitic findings or otitis media, mastoiditis, or other concerning features. US was obtained, which were consistent with a lymphadenitis. This is of uncertain etiology but may be related to the scalp lesions if they are small boils. Therefore, I gave the patient a trial of Augmentin and anti-inflammatory medications. We will have him follow up with his PCP. If he develops high fever, increased swelling, or pain, he should return here to the ED. He was advised if his swelling persists without improvement, he may need to follow up with ENTfor biopsy. The patient does not have any systemic symptoms, such as fever or other complaints. Therefore, I feel I can discharge the patient home without any further emergent testing here in the ED. Diagnosis: ICD-9-CM 1. Cervical lymphadenitis 289.3 Disposition: As above. Discharge Medications: Details amoxicillin-clavulanate (AUGMENTIN) 875-125 MG per tablet Take 1 tablet by mouth 2 times daily for 10 days, Disp-20 tablet, R-0, Local Print ibuprofen (ADVIL,MOTRIN) 800 MG tablet Take 1 tablet (800 mg) by mouth every 8 hours as needed for moderate pain, Disp-20 tablet, R-0, Local Print Aggie Castellon, lisa serving as a scribe on 04/15/2015 at 1:23 AM to personally document services performed by Zak Stallworth MD, based on my observations and the provider's statements to me. Zak Meyer MD 04/15/15 0502 Zahira Adan RN - 04/15/2015 12:24 AM CDT Comes in with lump behind left ear Noted last week but getting bigger, Painful if touches Abc intactat triage Denies fever or chills documented in this encounter Plan of Treatment Not on filedocumented as of this encounter Procedures Procedure Name Priority Date/Time Associated Diagnosis Comme nts US HEAD NECK SOFT STAT 04/15/2015 2:09 AM Resu lts for this TISSUE CDT procedure are i n the results section. documented in this encounter Results US Head Neck Soft Tissue (04/15/2015 2:09 AM CDT) Anatomical Region Laterality Modality Head Ultrasound Specimen (Source) Anatomical Location Collection Method / Collectio n Time Received Time / Laterality Volume Impressions 04/15/2015 8:51 AM CDT IMPRESSION: No abnormal masses are visualized in the soft tissues in the posterior aspect of the upper left n sharda, in the region of clinical concern. A few normal-sized lymph nodes are present in this location. The preliminary interpretation was conve yed to the clinical service by Dr. Cuevas on 04/15/2015 at 0219 hours. DEMOND RAMIREZ MD Narrative 04/15/2015 8:51 AM CDT ULTRASOUND SOFT TISSUES HEAD AND NECK LIMITED ?? 04/15/2015 2:09 AM HISTORY: Left posterior scalp and upper neck swelling. COMPARISON: 10/21/2011 - MR neck. TECHNIQUE: Focused ultrasound scanning w as performed over the posterior left upper neck, over the area of clinical concern. Procedure Note Demond Ramirez MD - 04/15/2015Fo rmatting of this note might be different from the original. ULTRASOUND SOFT TISSUES HEAD AND NECK LI MITED 04/15/2015 2:09 AM HISTORY: Left posterior scalp and upper neck swelling. COMPARISON: 10/21/2011 - MR neck. TECHNIQUE: Focused ultrasound scanning w as performed over the posterior left upper neck, over the area of clinical concern. IMPRESSION IMPRESSION: No abnormal masses are visua lized in the soft tissues in the posterior aspect of the upper left n sharda, in the region of clinical concern. A few normal-sized lymph nodes are present in this location. The preliminary interpretation was conve yed to the clinical service by Dr. Cuevas on 04/15/2015 at 0219 hours. DEMOND RAMIREZ MD Zak Meyer MD IMG US ORDERABLES documented in this encounter Visit Diagnoses Diagnosis Cervical lymphadenitis Lymphadenitis, unspecified, except mesen teric documented in this encounter Care Teams [employer] Producer Relationship Specialty Start Date End Date Kameron German MD PCP - General Family Practice 10/21/11 12/21/16 [facility] [address] [place] [id number] documented as of this encounter
--- OUTSIDE RECORDS SUMMARY | 2022-10-06 11:29 | XMS_ITS | Encounter Summary ---
:1960 Author Organization [place] Address [address] [place] [address]. [place] [address] Care Team Providers Name Role Phone Unavailable Primary Care Provider Unavailable Reason for Visit Reason Onset Date Comments *-*INCOMING RECORDS*-* 10/17/2017 [facility] Encounter Details Date Type Department Care Team Description 10/17/2017 [facility] Carmen, Kameron Encarnacion, * -*INCOMING RECORDS*-* Clinic MD ([facility]) [address] [place] [address] [address] [place] [address] [phone] (Wo rk) Social History Tobacco Use Types Packs/Day Years Used Date Smoking Tobacco: Never Smokeless Tobacco: Never Alcohol Use Standard Drinks/Week Comments No 0 (1 standard drink = 0.6 oz pure alcoho l) Sex Assigned at Date Recorded Not on file documented as of this encounter Miscellaneous Notes Telephone Encounter - Radha Brian - 10/12/2017 1:44 PM CST Phone Call: Who did you talk to? (or) Who did you call? patient Call Detail/Action: LVM for pt again - 2nd attempt [facility] Telephone Encounter - Rdaha Brian - 10/11/2017 9:47 AM CST Phone Call: Who did you talk to? (or) Who did you call? patient Call Detail/Action: LVM for pt -- where are additional records [facility] Telephone Encounter - Kassandra Ace - 10/07/2017 10:02 AM CST Records Received From: [facility] Date/Exam/Location (specify location if different) Office Notes: 04/05/16, 07/05/16, 12/06/16, 03/21/17, 04/25/17 Procedure Notes: (include injections) - FL injection tib fib joint left 06/21/16 Missing: - MRI left knee with PCP - cortisone injection with PCP - left proximal tib-fib joint fusion 2016 - CT done [facility] Telephone Encounter - Radha Brian - 10/07/2017 9:09 AM CST ACTION What did you do? Faxed 2nd request for records to [facility] Telephone Encounter - Radha Brian - 10/03/2017 8:15 AM CST Radiology Reports From: [facility]/ [facility]ier Diaz Exam Date/Name: XR L Knee 04/05/16, 10/25/16, 12/06/16, 03/21/17, 06/06/17 ,07/11/17, 08/22/17 XR L Tib/Fib 04/05/16, 10/11/16, 02/07/17 CT L Knee 04/22/17 Comments: Imaging available to view in Pacs [facility] Telephone Encounter - Radha Brian - 09/30/2017 1:34 PM CST APPT INFO Date /Time: 10/17/17 12pm Reason for Appt: L Knee Injury & Pain Ref Provider/Clinic: Dr. Morales Are there internal records? If yes, list: no Patient Contact (Y/N) & Call Details: No - pt is transferring care with Dr. Morales from [facility] Action: Faxed request for records/imaging OUTSIDE RECORDS CHECKLIST CLINIC NAME COMMENTS REC (x) IMG (x) [facility] x [facility] documented in this encounter Plan of Treatment Not on filedocumented as of this encounter Visit Diagnoses Not on filedocumented in this encounter
--- OUTSIDE RECORDS SUMMARY | 2022-10-06 11:29 | XMS_ITS | Encounter Summary ---
:1960 Author Organization [place] Address [facility] [place] [address] Care Team Providers Name Role Phone Unavailable Primary Care Provider Unavailable Encounter Details Date Type Department Care Team Description 06/16/2009 Historic Results INTERFACED REPORT Dr Francia, [address] [facility] [address] [place] [address] (Wo rk) Social History Tobacco Use Types Packs/Day Years Used Date Smoking Tobacco: Never Assessed Sex Assigned at Date Recorded Not on file documented as of this encounter Plan of Treatment Not on filedocumented as of this encounter Procedures Procedure Name Priority Date/Time Associated Comments Diagnosis ROUTINE UA WITH STAT 06/16/2009 5:05 AM Result s for this MICROSCOPIC CDT procedure are i n the results section. URINE CULTURE Routine 06/16/2009 5:05 AM Results for this CDT procedure are i n the results section. documented in this encounter Results (ABNORMAL) Routine UA with microscopic (06/16/2009 5:05 AM CDT) [facility] Method Time Signature Source Midstream MISYS Urine Color Urine Light Yellow MISYS Appearance Urine Slightly MISYS Cloudy Glucose Urine Negative NEG mg/dL MISYS Bilirubin Urine Negative NEG MISYS Ketones Urine Negative NEG mg/dL MISYS Specific Mears 1.003 1.003 - MISYS Urine 1.035 Blood Urine Large (A) NEG MISYS pH Urine 5.5 5.0 - 7.0 MISYS pH Protein Albumin 30 (A) NEG mg/dL MISYS Urine Urobilinogen Normal 0.0 - 2.0 MISYS mg/dL mg/dL Nitrite Urine Negative NEG MISYS Leukocyte Large (A) NEG MISYS Esterase Urine WBC Urine >182 (H) 0 - 2 MISYS /HPF RBC Urine 28 (H) 0 - 2 MISYS /HPF Squamous <1 0 - 1 MISYS Epithelial /HPF /HPF Urine Bacteria Urine Few (A) NEG /HPF MISYS WBC Clumps Present (A) NEG /HPF MISYS Uric Acid Few (A) NEG /HPF MISYS Crystals Specimen Anatomical Collection Method Collection Time Receive d Time (Source) Location / / Volume Laterality 06/16/2009 5:05 AM 9 5:02 CDT AM CDT Omega Poe MD LAB - URINE ORDERABLES Performing Organization Address City/State/ZIP Code Phon e Number MISYS Urine culture (06/16/2009 5:05 AM CDT) [facility] Method Time Signature Specimen Midstream MISYS Description Urine Culture Micro No growth MISYS Micro Report FINAL MISYS Status 06/17/2009 Specimen Anatomical Collection Method Collection Time Receive d Time (Source) Location / / Volume Laterality 06/16/2009 5:05 AM 9 5:[address] Francia [facility]OD[facility] LAB - MICRO GENERAL ORDERABL ES Performing Organization Address City/State/ZIP Code Phon e Number MISYS documented in this encounter Visit Diagnoses Not on filedocumented in this encounter
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
--- OUTSIDE RECORDS SUMMARY | 2022-10-06 11:30 | XMS_ITS | Encounter Summary ---
:1960 Author Organization [facility] Address [address] [place] [address]. [place] [address] Care Team Providers Name Role Phone Unavailable Primary Care Provider Unavailable Encounter Details Date Type Department Care Team Description 01/15/2008 Office Visit-[facility] INTERFACE [facility] DEPT Provider, [facility] Nurs e Social History Tobacco Use Types Packs/Day Years Used Date Smoking Tobacco: Never Assessed Sex Assigned at Date Recorded Not on file documented as of this encounter Progress Notes Provider, [facility] Nurse - 01/15/2008 2:30 PM CST Livestock Trader: Marisol Monsalve Status: Final Encounter: 15 Jan 2008 Type: PM and R Nurse Note Reason For Visit Here today for a follow up visit. Allergies No Known Drug Allergy. Current Meds The medications listed below were reviewed and updated with patient by Monroe Monsalve LPN prior to provider visit on January 15, 2008 at 14:41. Aspirin 81 MG Tablet Delayed Release;TAKE 1 TABLET DAILY DIRECTED.; RPT Folic Acid 1 MG Tablet;TAKE 1 TABLET DAILY DIRECTED.; RPT Metoprolol Succinate 25 MG Tablet Extended Release 24 Hour;TAKE 1 TABLET DAILY.; RPT Multivitamins TABS;TAKE 1 TABLET DAILY.; RPT Senna Lax TABS;TAKE DIRECTED.; RPT Simvastatin 80 MG Tablet;TAKE 1 TABLET DAILY.; RPT. Pain Assessment Current history of pain associated with this visit is denied. Smoking Assessment No secondhand cigarette smoke exposure. No tobacco use. Vital Signs Recorded by Marisol Monsalve on 15 Jan 2008 02:40 PM BP:114/76, RUE, Sitting, HR: 64 b/min, Resp: 18 r/min, Weight: 216 lb, Pain Scale: 0. Signature Signed By: Marisol Monsalve LPN; 01/15/2008 2:42 PM MANAGER SURGERY. documented in this encounter Plan of Treatment Not on filedocumented as of this encounter Visit Diagnoses Not on filedocumented in this encounter
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
--- OUTSIDE RECORDS SUMMARY | 2022-10-06 11:30 | XMS_ITS | Encounter Summary ---
:1960 Author Organization [facility] Address [address] [place] [address]. 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 Patient has been seen in occupational therapy secondary to cognitive impairments, specifically decreased short-term memory, decreased attention and decreased problem solving affecting his ability to perform ADLs/IADLs safely. This is the result of a right MCA CVI that the patient was diagnosed with on 12/05/2007. Treatment has included cognitive intervention with focus on memory strategies, attention activities and compensatory strategies. Patient has been making progress and is demonstrating improved implementation of memory compensation techniques with distractions and continues to be appropriate for skilled outpatient occupational therapy intervention. OT TREATMENT DIAGNOSIS: Decreased ability to perform ADLs/IADLs secondary to decreased cognition. PATIENT/CLIENT SELF REPORT: Patient reports that he feels that therapy is helping. Patient has implemented use of a pocket calendar during work activities in order to compensate for decreased memory with distraction. Patient reports that he passed the behind the wheel assessment with [facility] on 01/25/2007. On 02/07/2007 patient was invited to speak at [facility] at an educational forum for first responders including meteorology instructor and paramedics as a stroke survivor and telling his story. Patient reports that he is still having periods where he has to slow down as he can concentrate better when he focuses on one thing at a time. Patient reports that he does continue to have difficulties and incidences where he has had issues with memory and with distractions. 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 Patient returned to work on a part-time basis (Tuesday, Tuesday, Tuesday) approximately 4 hours per day on 01/29/2008 on a supervised basis. Patient now reporting that he is planning on returning to work full-time on 02/19/2008. IMPAIRMENT/FUNCTIONAL STATUS (TEST AND MEASURES): On 01/30/2008, patient participated in the BiVABA scan course. Initially, patient's participation was with distractions present and walking at a normal pace: trial 1 left 70% right, 50%; trial 2 left 80% right, 90%. After education and patient slowing his pace, he improved as follows: trial 3 left 90%, right 90%; trial 4 left 100%, right 100%. Patient is demonstrating ability to participate in two divided attention activities with distractions, however, continues to require minimal cueing to stay on task as patient quite talkative and tangential at times. Patient does demonstrate decreased short-term memory, especially noted during conversation during sessions. On 01/25/2008, patient presented to therapy reporting that he had an episode on the previous day where he was walking on a treadmill for approximately an hour and got off the treadmill and felt like he was going to black out and his left arm felt different. Patient reports that he got extremely dizzy and his left arm went numb. When patient presented to therapy on 01/25/2008, his left upper extremity strength was grossly 4/5. Fine motor coordination and first crusher strength appeared intact. Patient's blood pressure was 130/90. Patient had called the doctors office, but had not heard back from them. This therapist became concerned about possible neurological changes that patient might potentially be having, therefore, brought patient to the emergency room. Patient later returned to occupational therapy department after the emergency room visit and reported that a CT of his head was done, which was okay. Patient has reported that the emergency room physician has now referred him to a neurologist, however, patient was not aware of the neurologist's name at the time of conversation. Interventions This Session: Please see written note dated 02/15/2008. PLAN OF CARE GOALS (to be met within 4 weeks): 1. Patient will demonstrate within functional limits scores on Dynavision visual motor reaction time and divided attention tasks with two digit alternating adding and subtracting using Dynavision in preparation for safe return to IADL with managing distractions. Goal Progress: This goal has been addressed since last progress note, however, patient does report that he has always had difficulty with quick adding and subtracting, even prior to stroke. 2. Patient will complete BiVABA scan course with 90% accuracy in preparation for safe return to IADL. Goal Progress: Patient has met this goal, however, with a slightly slower pace. 3. Patient will complete a complex problem solving activity with 90% accuracy with minimal to moderate distractions in preparation for safe return to IADL and work. Goal Progress: Patient is making progress towards this goal. Treatment has focussed on participation in more constructional problem solving as related to work. k 4. Patient will complete moderately complex meal prep activity independently. Goal Progress: This goal has been met. 5. Patient will participate in moderately complex divided attention activity between two tasks with only two cues provided for re-direction. Goal Progress: Patient is making progress towards this goal, however, patient is talkative and this is possibly patient's baseline. Patient currently requiring minimal cueing to stay on track. 6. Patient will demonstrate independent understanding of sensory precautions in order to accommodate for decreased sensation in left hand in preparation for return to work. Goal Progress: This goal has not been met. ASSESSMENT: Patient has met 2/6 short-term goals since last progress note and is currently able to perform ADL with modified independence and is initiating return to IADL. Patient does continue to have deficits noted with higher level cognition, specifically with decreased memory with distraction. These impairments could affect patient's ability to complete all work activities, however, patient has adopted various memory compensatory strategies in order to accommodate for distractions. Patient will continue to benefit from skilled outpatient occupational therapy for addressing safety concerns, compensatory strategies for memory, understanding of sensory precautions in preparation for return to work. NEW GOALS (to be met within 4 weeks): 1. Patient will demonstrate within functional limits scores on Dynavision visual motor reaction time and divided attention task with alternating rules using Dynavision in preparation for safe return to IADL with managing distractions. 2. Patient will complete complex problem solving activity with 90% accuracy with minimal to moderate distractions in preparation for safe return to IADL and work. 3. Patient will participate in moderately complex divided attention activity between two tasks with only two cues provided for re-direction. 4. Patient will demonstrate independent understanding of sensory precautions in order to accommodate for decreased sensation in left hand in preparation for return to work. OUTCOME: Patient's goal continues to be return to work independently. The patient also reports that he would like to have improved memory during all of his everyday activities as he is demonstrating decreased short-term memory, especially when distracted. PLANNED INTERVENTIONS/EDUCATIONAL NEEDS: Will continue to see patient in occupational therapy to focus on higher level cognitive intervention, specifically short-term memory, attention and problem solving with distraction to improve independence with ADLs and IADLs in the patient's home environment and community. DISCHARGE PLAN: Will plan to continue with occupational therapy 1x/week for approximately 4 weeks and then anticipate discharge at the end of February. Thank you for referring Shashank Hastings to outpatient Occupational Therapy. Please call with any questions at [phone]. 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
--- OUTSIDE RECORDS SUMMARY | 2022-10-06 11:30 | XMS_ITS | Encounter Summary ---
:1960 Author Organization [place] Address [facility] [place] [address] Care Team Providers Name Role Phone Kameron German MD Primary Care Provider Encounter Details Date Type Department Care Team Description 01/09/2008 Historic Hydrometer Finisher [facility], [address] [place], [place] [address] [facility] [address] [place], [place] [id number] Social History Tobacco Use Types Packs/Day Years Used Date Smoking Tobacco: Never Assessed Sex Assigned at Date Recorded Not on file documented as of this encounter Progress Notes Interface, Hydrometer Finisher - 10/26/2011 3:48 PM JAVASCRIPT FRONT END DEVELOPER FINAL OCCUPATIONAL THERAPY PROGRESS NOTE Shashank Hastings has been seen in occupational therapy 6 times since initial evaluation was completed on 12/21/2007. This patient has been seen in occupational therapy secondary to cognitive impairments, specifically decreased short-term memory, decreased attention and decreased problem solving affecting his ability to perform ADLs/IADLs safely. 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 Treatment has included cognitive intervention with focus on memory strategies, attention activities and compensatory strategies. Patient has been making progress and is demonstrating improved implementation of memory compensation techniques and continues to be appropriate for skilled outpatient occupational therapy intervention. OT TREATMENT DIAGNOSIS: Decreased ability to perform ADL/IADL secondary to decreased cognition. PATIENT/CLIENT SELF REPORT: Patient reports that he feels that therapy is helping. Patient has implemented use of a pocket calendar and patient does demonstrate use of this calendar with minimal cueing. Patient does report that he continues to have difficulties with his memory, specifically when there are distractions present. Patient reports that he often leaves the water running in his kitchen after doing the dishes. Patient also reports that his dog was unfortunately hit by a car and on 01/03. Patient reports that he attributes this to the fact that he got distracted and the dog ran away prior to patient locking him up in the garage as his electric fence collar was not working and patient was trying to fix it. Patient also reports difficulties lately as his has been in [place] over the last week and a half, as her father is ill and is in the hospital. Patient has been having friends stay with him and has been relying on friends for transportation at this time. IMPAIRMENT/FUNCTIONAL STATUS (TEST AND MEASURES): Patient is currently completing two step memory for directions task with 8/12 correct. Patient is performing within functional limits on Dynavision visual motor reaction time activity, however, there were no distractions present during this activity. Patient's performance does appear to decline when distractions are present. Patient is now able to independently use his pocket calendar for a memory compensatory strategy, however, continues to benefit from further education and new strategies for use of calendar. Patient also does demonstrate decreased short-term memory with conversation and tends to repeat himself, forgetting that he has already stated something. INTERVENTIONS THIS SESSION: Please see written note dated 01/09/2008. PLAN OF CARE Goals set on 12/21/2007 (to be met within 4 weeks). This note is currently being written on this date as patient does have a doctor's appointment on 01/15/2008. The following goals were set on 12/21/2007 to be met within 6 weeks): 1. Patient will demonstrate within functional limit scores on Dynavision visual motor reaction time and divided attention tasks using Dynavision in preparation for safe return to IADL. Goal Progress: Patient has met this goal, however, will continue with Dynavision visual motor reaction time activities with distraction in order to improve higher level cognition for safe return to IADL. 2. Patient will complete BIVABA scan course with 90% accuracy in preparation for safe return to IADL. Goal Progress: Due to limited number of treatment sessions this goal has not been addressed. Plan to further address this goal. 3. Patient will complete complex problem solving activity with 90% accuracy with minimal to moderate distractions in preparation for safe return to IADL and work. Goal Progress: Patient has not met this goal, however, will continue to address this goal. 4. Patient will complete moderately complex meal prep activity independently. Goal Progress: This goal has not been performed in the clinic, however, per patient report, he has been doing some cooking at home. Patient does report that he has had times where he has been distracted during cooking activities, which has impeded his performance. Will continue to address this goal. 5. Patient will participate in moderately complex divided attention activity between two tasks with only two cues provided for redirection. Goal Progress: Patient is making progress towards this goal, however, will continue to address. 6. Patient will demonstrate independent understanding of sensory precautions in order to accommodate for decreased sensation in left hand in preparation for return to work. Goal Progress: Due to limited number of treatment sessions this goal has not been addressed, however, plan to continue to address this goal. ASSESSMENT: Patient has met 1 out of 6 short-term goals over the last three weeks. As noted above, this note is being written as patient is scheduled for a doctor's appointment with Dr. Tomy Mcclain on 01/15/2008. Patient does continue to demonstrate decreased short-term memory, decreased attention and decreased ability to problem solve which is affecting his safety with ADL/IADL. These deficits may impact his ability to safely return to work at this time, as well as to return to driving. Recommend that patient complete a behind the wheel assessment prior to returning to driving due to his cognitive deficits. NEW GOALS: Will continue with above short-term goals (to be met within 4 weeks): 1. Patient will demonstrate within functional limits scores on Dynavision visual motor reaction time and divided attention tasks with two digit alternating adding and subtracting using Dynavision in preparation for safe return to IADL with managing distractions. 2. Patient will complete BIVABA scan course with 90% accuracy in preparation for safe return to IADL. 3. Patient will complete complex problem solving activity with 90% accuracy with minimal to moderate distractions in preparation for safe return to IADL and work. 4. Patient will complete moderately complex meal prep activity independently. 5. Patient will participate in moderately complex divided attention activity between two tasks with only two cues provided for re-direction. 6. Patient will demonstrate independent understanding of sensory precautions in order to accommodate for decreased sensation in left hand in preparation for return to work. OUTCOME: Patient's goals continue to be to return to work and to return to driving. Patient also reports that he would like to have improved memory during all of his everyday activities as he is demonstrating decreased short-term memory during simple tasks. PLANNED INTERVENTIONS/EDUCATIONAL NEEDS: Will continue to see patient in occupational therapy to focus on cognitive intervention, specifically short-term memory, attention and problem solving with distraction to improve independence with ADLs and IADLs in the patient's home environment and community. DISCHARGE PLAN: Will continue with occupational therapy 2x/week for approximately three months. Thank you for referring Shashank Hastings to outpatient Occupational Therapy. Please call with any questions at [phone]. Electronically signed on 01/12/2008 16:08 by MATTHIAS CUELLO MT: roberta Name: SHASHANK HASTINGS MRN: [id number] Account: [id number] : 1960 Visit Date: 01/09/2008 Sex: M Age: 47 Document: [id number] SCRIPT FRONT END DEVELOPER documented in this encounter Plan of Treatment Not on filedocumented as of this encounter Visit Diagnoses Not on filedocumented in this encounter Care Teams Bellman Driver Relationship Specialty Start Date End Date Kameron German MD PCP - General Family Practice 10/21/11 12/21/[address] [id number] documented as of this encounter
--- OUTSIDE RECORDS SUMMARY | 2022-10-06 11:30 | XMS_ITS | Encounter Summary ---
:1960 Author Organization [place] Address [address] [place] [address]. [place] [address] Care Team Providers Name Role Phone Unavailable Primary Care Provider Unavailable Encounter Details Date Type Department Care Team Description 01/25/2008 Results Only [facility] Omega Poe MD Hospital Results EMERGENCY [facility] [address] [facility] [address] [place], [place] [address] (Wo rk) Social History Tobacco Use Types Packs/Day Years Used Date Smoking Tobacco: Never Assessed Sex Assigned at Date Recorded Not on file documented as of this encounter Plan of Treatment Not on filedocumented as of this encounter Procedures Procedure Name Priority Date/Time Associated Diagnosis Comme nts HC CT HEAD WO Routine 01/25/2008 2:06 PM Results for this CONTRAST CRITICAL CARE SPECIALIST procedure are i n the results section. documented in this encounter Results CT SCAN HEAD/BRAIN (01/25/2008 2:06 PM CRITICAL CARE SPECIALIST) Anatomical Region Laterality Modality Other Specimen (Source) Anatomical Collection Method Collection Time Re ceived Time Location / / Volume Laterality 01/25/2008 2:06 PM CRITICAL CARE SPECIALIST Impressions 01/25/2008 2:[address] HEAD W/O CONTRAST* ?? Jan 25, 2008 2:0 6:00 PM HISTORY: ??Acute Cerebral Vascular Infar ction, ??Stroke,lt sided numbness TECHNIQUE: ??5mm thick axial images of t he head. COMPARISON: December 09, 2007. FINDINGS: Low-density changes in the rig ht temporal lobe consistent with encephalomalacia from previous hemo rrhage at this site. No hemorrhage. No mass-effect. Exam otherwi se negative. IMPRESSION: Old area of encephalomalacia at the site of previous parenchymal hemorrhage in the right temp oral lobe. No acute findings. Head otherwise negative. Omega Poe MD SPECIAL IMAGING STUDIES documented in this encounter Visit Diagnoses Not on filedocumented in this encounter
--- OUTSIDE RECORDS SUMMARY | 2022-10-06 11:30 | XMS_ITS | Encounter Summary ---
:1960 Author Organization [address] [place] [address] Care Team Providers Name Role Phone Kameron German MD Primary Care Provider Encounter Details Date Type Department Care Team Description 01/19/2008 Historic Class C Driver [facility] Clarence Maciel, Rehabilitation LEARNING SUPPORT SPECIALIST Services [address] [id number] Social History Tobacco Use Types Packs/Day Years Used Date Smoking Tobacco: Never Assessed Sex Assigned at Date Recorded Not on file documented as of this encounter Progress Notes Isabella Maciel, LEARNING SUPPORT SPECIALIST - 10/26/2011 3:32 PM LATHE SPOTTER FINAL SPEECH LANGUAGE PATHOLOGY PROGRESS REPORT PATIENT INFORMATION: 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 Please refer to the initial evaluation report dated 12/21/07 for further details of past medical history. THERAPY PROGRESS: 1. Goal met. Moderate level auditory comprehension tasks for 5-7 sentence length information with 80% accuracy completed with minimal assistance (for improved listening such as a list of job tasks). Patient has completed baseline testing for auditory comprehension and performed five sentences with 80% accuracy given minimal assistance for Jian software and APT multi-paragraph listening. 2. Goal met. Visual auditory recall of daily events with moderate assistance for use of memory book and other compensations with 80% effectiveness (for improved memory such as driving directions). Patient has inconsistently used a calendar and memory book for carryover of tasks outside of therapy. However, in therapy, he has used a calendar and memory book with 100% accuracy and effectiveness. 3. Goal met. Memory recall of visual and auditory information after 15 minute delay from presentation with 80% accuracy and moderate assistance (for improved recall such as attending to an MD appointment). After 15 minute delay, patient performs recall of visual and auditory information given moderate assistance with 80-90% accuracy. Patient recalled daily events with 100% accuracy on 01/02/08. 4. Goal met. Basic logic for daily needs with 80% accuracy and moderate assistance (for improved reasoning such as re-booting a computer if problems occur). Patient has performed basic logic tasks with multi-step requirements with 75-85% accuracy during this progress note period. 5. Goal continues. Attention to single task for 45 minutes independently without breaking concentration or becoming off topic (for concentration tasks such as driving a car without being distracted). [employer] software visual attention and tracking average between 50-76% accuracy given moderate assistance. 6. Goal continues. Home exercise program geared towards the above goals completed independently. SUMMARY AND RECOMMENDATIONS: Impairments noted in auditory comprehension of multi-paragraph length material, attention to detail particularly with distractions present, and memory. Verbal expression, reading expression and written expression all appear within functional limits. Patient reports difficulty with day to day recall and memory. He recently misplaced his coat at work with his keys inside due to distractibility and decreased memory. Strengths include strong motivation, good family support and excellent recovery thus far. Patient also demonstrates a high motivation for change. Speech-language pathology services are recommended 2x/week for a period of one month. Re-evaluation in approximately two months to further determine a plan of care. The long-term duration is anticipated to be between 3 and 6 months. GOALS: 1. Complex level auditory comprehension tasks for 5-7 sentence length information with 80% accuracy completed independently. 2. Visual and auditory recall for daily events with minimal assistance for use of memory book and other compensatory strategies with 80% effectiveness. 3. Memory and recall of visual and auditory information after a two day delay from presentation with 80% accuracy and moderate assistance. 4. Complex logic for daily needs with 80% accuracy with minimal assistance. 5. Alternating and divided attention for 60 minutes independently without breaking concentration or becoming off topic. 6. Home exercise program geared towards the above goals completed independently. Thank you very much for your referral of this patient. If you have any questions regarding this report, please feel free to contact me at [phone]. Electronically signed on 01/31/2008 15:06 by ISABELLA MACIEL MA,CCC-LEARNING SUPPORT SPECIALIST MT: roberta Name: SHASHANK HASTINGS MRN: [id number] Account: [id number] : 1960 Visit Date: 01/19/2008 Sex: M Age: 47 Document: [id number] E SPOTTER documented in this encounter Plan of Treatment Not on filedocumented as of this encounter Visit Diagnoses Not on filedocumented in this encounter Care Teams Pipe Turner Relationship Specialty Start Date End Date Kameron German MD PCP - General Family Practice 10/21/11 12/21/[address] [phone] documented as of this encounter
--- OUTSIDE RECORDS SUMMARY | 2022-10-06 11:30 | XMS_ITS | Encounter Summary ---
:1960 Author Organization [place] Address [address] [place] [address]. [place] [address] Care Team Providers Name Role Phone Unavailable Primary Care Provider Unavailable Encounter Details Date Type Department Care Team Description 03/14/[address] [facility] Briseyda Walsh, Hospital Results MD EMERGENCY PHYSIC HEENA HUNTER [address] [facility] [address] [place], [place] [address] (Wo rk) Social History Tobacco Use Types Packs/Day Years Used Date Smoking Tobacco: Never Assessed Sex Assigned at Date Recorded Not on file documented as of this encounter Progress Notes Briseyda Walsh - 03/18/2008 10:12 PM CDT FINAL CHIEF COMPLAINT: Headache over the last 3 days. HISTORY OF PRESENT ILLNESS: Shashank Hastings states it seems to go all over his head. He has had this intermittently since a stroke on 12/05/07 but it seems to be worse over the last 3 days. He had left-sided weakness in the past with a stroke but that is now gone. He also has no slurred speech. ALLERGIES: None. He has had no recent falls. MEDICATIONS: He is unsure of his meds but he is not on any blood thinners. It states in his chart on his past medical history from the neurologist that he had ischemic stroke and it sounds like he wasgiven intra-arterial TPA and he developed the brain bleed. He spent 6 days in the hospital following6 days of inpatient rehabilitation. PAST MEDICAL HISTORY: As mentioned the CVA, splenectomy also. SOCIAL HISTORY: Nonsmoker and nondrinker. FAMILY HISTORY: Negative. REVIEW OF SYSTEMS: Ten-point review of systems all negative except as noted in the history present illness for neurologic problems. PHYSICAL EXAMINATION: VITAL SIGNS: Blood pressure 121/85, pulse 90, respiratory rate is 14, temperature is 96.4 and pulseoximetry 97% on room air. GENERAL: This is an alert and cooperative man complaining of a headache which at this point in time is in the back of the head but he states that it moves around the side and into the front. SKIN: Warm and dry. HEENT: Head is normocephalic. Eyes, pupils are equal, regular and react to light and accommodation.NECK: Supple with no meningismus. His tongue is midline. There is no JVD, no carotid bruits or thrills are found. LUNGS: Clear to auscultation, no rales or rhonchi. HEART: Regular sinus rhythm, no murmurs. ABDOMEN: Soft, nontender to palpation, no hepatosplenomegaly. NEUROLOGIC: Alert and oriented x3. Equal hand grasp bilaterally, cranial nerves II-XII are grossly intact. Sensation to all sides is intact. No pronator drift. He has equal hand grasp bilaterally. Deep tendon reflexes in knee, ankle, brachioradialis, biceps, triceps seem to be symmetric and equal. I do not really pickle pumper any weakness on the left side at this time. CT scan shows no acute brain abnormality but he sinus disease, mucosal thickening in frontal, ethmoid and sphenoid sinuses. There is encephalomalacia in the right temporal lobe from the previous infarct. LABORATORY DATA: His INR and PTT are normal. Glucose, BUN, normal creatinine normal, electrolytes normal, and his white count 11,200, normal differential and hemoglobin 14.8, platelets 317,000. He hasbeen stable the entire time. The EKG was a normal sinus rhythm and normal. DISCHARGE PLAN: Amoxicillin 500 mg t.i.d. x10 days. Continue other meds for your headache. See yourphysician in 4 to 5 days if not better. DIAGNOSES: 1. Headache. 2. Sinusitis. CONDITION: Stable. Electronically signed on 03/18/2008 22:11 by BRISEYDA WALSH MD MT: [id number] Name: SHASHANK HASTINGS Account: [id number] : 1960 Visit Date: 03/14/2008 Document: [id number] cc: Kameron Boyd MD documented in this encounter Plan of Treatment Not on filedocumented as of this encounter Visit Diagnoses Not on filedocumented in this encounter
--- OUTSIDE RECORDS SUMMARY | 2022-10-06 11:30 | XMS_ITS | Encounter Summary ---
:1960 Author Organization [place] Address [address] [place] [address]. [place] [address] Care Team Providers Name Role Phone Kameron German MD Primary Care Provider Encounter Details Date Type Department Care Team Description 01/25/2008 Historic Results INTERFACED REPORT Omega Poe MD EMERGENCY PHYSIC [facility] [address] [facility] [address] [place], [place] [address] (Wo rk) Social History Tobacco Use Types Packs/Day Years Used Date Smoking Tobacco: Never Assessed Sex Assigned at Date Recorded Not on file documented as of this encounter Plan of Treatment Not on filedocumented as of this encounter Procedures Procedure Name Priority Date/Time Associated Diagnosis Comme nts EKG 12 LEAD Routine 01/25/2008 1:21 PM Results f or this THERAPIST PHYS procedure are i n the results section . documented in this encounter Results EKG 12 LEAD (01/25/2008 1:21 PM THERAPIST PHYS) Component Value Ref Range Test Analysis Performed Pathologis t Method Time At Signature Ventricular Rate 74 BPM RADIOLOGY RESULTS Atrial Rate 74 BPM RADIOLOGY RESULTS DC Interval 158 ms RADIOLOGY RESULTS QRS Duration 90 ms RADIOLOGY RESULTS QT 366 ms RADIOLOGY RESULTS QTc 406 ms RADIOLOGY RESULTS P Hertel 39 degrees RADIOLOGY RESULTS R AXIS 31 degrees RADIOLOGY RESULTS T Hertel 48 degrees RADIOLOGY RESULTS Interpretation AGE AND GENDER SPECIFIC ECG ANALYSIS RADIOLOGY ECG Sinus rhythm RESULTS Normal ECG Unconfirmed report - interpretation of this ECG is compute r generated - see medical record for final interpretation Specimen Anatomical Collection Method Collection Time Receive d Time (Source) Location / / Volume Laterality 01/25/2008 1:21 PM 8 THERAPIST PHYS 12:54 PM THERAPIST PHYS Omega Poe MD ECG ORDERABLES Performing Organization Address City/State/ZIP Code Phon e Number RADIOLOGY RESULTS documented in this encounter Visit Diagnoses Not on filedocumented in this encounter Care Teams Separations Scientist Relationship Specialty Start Date End Date Kameron German MD PCP - General Family Practice 10/21/11 12/21/[address] [address] documented as of this encounter
--- OUTSIDE RECORDS SUMMARY | 2022-10-06 11:30 | XMS_ITS | Encounter Summary ---
:1960 Author Organization [place] Address [address] [place] [address] Care Team Providers Name Role Phone Unavailable Primary Care Provider Unavailable Encounter Details Date Type Department Care Team Description 01/25/2008 Historic Results Physical Medicine and Johny, Sc robb Mccollum MD Rehabilitation [facility] [address] [place], [place] [id number], [place] 1st Floor, Clinic [address] [place] [address] [place] [phone] (Work) [phone] Social History Tobacco Use Types Packs/Day Years Used Date Smoking Tobacco: Never Assessed Sex Assigned at Date Recorded Not on file documented as of this encounter Plan of Treatment Not on filedocumented as of this encounter Procedures Procedure Name Priority Date/Time Associated Comments Diagnosis INR Routine 01/25/2008 2:20 PM Results f or this MANAGER CLINICAL INFORMATICS procedure are i n the results section. PARTIAL THROMBOPLASTIN Routine 01/25/2008 2:20 PM Results for this TIME MANAGER CLINICAL INFORMATICS procedure are i n the results section. ELECTROLYTE PANEL STAT 01/25/2008 1:45 PM Resu lts for this MANAGER CLINICAL INFORMATICS procedure are i n the results section. HEMOGRAM DIFFERENTIAL STAT 01/25/2008 1:45 PM Results for this AND PLATELET MANAGER CLINICAL INFORMATICS procedure are i n the results section. UREA NITROGEN (BUN) STAT 01/25/2008 1:45 PM Re sults for this MANAGER CLINICAL INFORMATICS procedure are i n the results section. CREATININE STAT 01/25/2008 1:45 PM Results f or this MANAGER CLINICAL INFORMATICS procedure are i n the results section. GLUCOSE STAT 01/25/2008 1:45 PM Results f or this MANAGER CLINICAL INFORMATICS procedure are i n the results section. documented in this encounter Results INR (01/25/2008 2:20 PM MANAGER CLINICAL INFORMATICS) athologist Signature INR 0.92 0.86 - 1.14 MISYS Specimen Anatomical Collection Method Collection Time Receive d Time (Source) Location / / Volume Laterality 01/25/2008 2:20 PM 8 2:37 MANAGER CLINICAL INFORMATICS PM MANAGER CLINICAL INFORMATICS Tomy Mcclain MD LAB - BLOOD ORDERABLES Performing Organization Address [facility] Code Phon e Number MISYS Partial thromboplastin time (01/25/2008 2:20 PM MANAGER CLINICAL INFORMATICS) athologist Signature PTT 24 22 - 37 sec MISYS Specimen Anatomical Collection Method Collection Time Receive d Time (Source) Location / / Volume Laterality 01/25/2008 2:20 PM 8 2:37 MANAGER CLINICAL INFORMATICS PM MANAGER CLINICAL INFORMATICS Tomy Mcclain MD LAB - BLOOD ORDERABLES Performing Organization Address [facility] Code Phon e Number MISYS Hemogram differential and platelet (01/25/2008 1:45 PM MANAGER CLINICAL INFORMATICS) [facility] gist Method Time Signature MCV 87 78 - 100 MISYS fl MCH 30.1 26.5 - MISYS 33.0 pg MCHC 34.7 31.5 - MISYS 36.5 g/dL RDW 14.1 10.0 - MISYS 15.0 % WBC 10.1 4.0 - MISYS 11.0 10e9/L RBC Count 5.48 4.4 - 5.9 MISYS 10e12/L Hemoglobin 16.5 13.3 - MISYS 17.7 g/dL Hematocrit 47.5 40.0 - MISYS 53.0 % % Neutrophils 43 40 - 75 % MISYS % Lymphocytes 43 20 - 48 % MISYS % Monocytes 10 0 - 12 % MISYS % Eosinophils 3 0 - 6 % MISYS % Basophils 1 0 - 2 % MISYS Platelet Count 307 150 - 450 MISYS 10e9/L Absolute 4.4 1.6 - 8.3 MISYS Neutrophil 10e9/L Absolute 4.3 0.8 - 5.3 MISYS Lymphocytes 10e9/L Absolute 1.0 0.0 - 1.3 MISYS Monocytes 10e9/L Absolute 0.3 0.0 - 0.7 MISYS Eosinophils 10e9/L Absolute 0.1 0.0 - 0.2 MISYS Basophils 10e9/L Diff Method Automated MISYS Method Specimen Anatomical Collection Method Collection Time Receive d Time (Source) Location / / Volume Laterality 01/25/2008 1:45 PM 8 MANAGER CLINICAL INFORMATICS 12:54 PM MANAGER CLINICAL INFORMATICS Omega Poe MD LAB - BLOOD ORDERABLES Performing Organization Address City/State/ZIP Code Phon e Number MISYS (ABNORMAL) Electrolyte panel (01/25/2008 1:45 PM MANAGER CLINICAL INFORMATICS) athologist Signature Sodium 145 (H) 133 - 144 MISYS mmol/L Potassium 3.9 3.4 - 5.3 MISYS mmol/L Chloride 109 94 - 109 MISYS mmol/L Carbon Dioxide 27 20 - 32 MISYS mmol/L Anion Gap 9 6 - 17 MISYS mmol/L Specimen Anatomical Collection Method Collection Time Receive d Time (Source) Location / / Volume Laterality 01/25/2008 1:45 PM 8 MANAGER CLINICAL INFORMATICS 12:54 PM MANAGER CLINICAL INFORMATICS Omega Poe MD LAB - BLOOD ORDERABLES Performing Organization Address City/[facility] Code Phon e Number MISYS Creatinine (01/25/2008 1:45 PM MANAGER CLINICAL INFORMATICS) athologist Signature Creatinine 0.95 0.80 - MISYS 1.50 mg/dL GFR Estimate 90 >60 MISYS mL/min/1.7 m2 GFR Estimate If >90 >60 MISYS Black mL/min/1.7 m2 Specimen Anatomical Collection Method Collection Time Receive d Time (Source) Location / / Volume Laterality 01/25/2008 1:45 PM 8 MANAGER CLINICAL INFORMATICS 12:54 PM MANAGER CLINICAL INFORMATICS Omega Poe MD LAB - BLOOD ORDERABLES Performing Organization Address City/State/ZIP Code Phon e Number MISYS Urea nitrogen (01/25/2008 1:45 PM MANAGER CLINICAL INFORMATICS) athologist Signature Urea Nitrogen 9 5 - 24 MISYS mg/dL Specimen Anatomical Collection Method Collection Time Receive d Time (Source) Location / / Volume Laterality 01/25/2008 1:45 PM 8 MANAGER CLINICAL INFORMATICS 12:54 PM MANAGER CLINICAL INFORMATICS Omega Poe MD LAB - BLOOD ORDERABLES Performing Organization Address City/State/ZIP [facility] Phon e Number MISYS Glucose (01/25/2008 1:45 PM MANAGER CLINICAL INFORMATICS) P athologist Signature Glucose 80 60 - 99 MISYS mg/dL Specimen Anatomical Collection Method Collection Time Receive d Time (Source) Location / / Volume Laterality 01/25/2008 1:45 PM 8 MANAGER CLINICAL INFORMATICS 12:54 PM MANAGER CLINICAL INFORMATICS Omega Poe MD LAB - BLOOD ORDERABLES Performing Organization Address City/State/[facility] Phon e Number MISYS documented in this encounter Visit Diagnoses Not on filedocumented in this encounter
--- OUTSIDE RECORDS SUMMARY | 2022-10-06 11:30 | XMS_ITS | Encounter Summary ---
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 Hastings: I have received the results from your recent driving evaluation through [employer]. I concur with their results and I have no reservations to you resuming driving without restrictions at this time. If you have any additional specific documentation needs to the DMV or otherwise, please let me know. Sincerely, Gabriel Brown M.D. Commissary Representative Department of Physical Medicine & Rehabilitation [facility] SCC:marie Electronically signed by:GABRIEL BROWN M.D. Feb 05 2008 1:15PM [employer] GROWER documented in this encounter Plan of Treatment Not on filedocumented as of this encounter Visit Diagnoses Not on filedocumented in this encounter
--- OUTSIDE RECORDS SUMMARY | 2022-10-06 11:30 | XMS_ITS | Encounter Summary ---
:1960 Author Organization [place] Address [address] [facility] [place] [address] Care Team Providers Name Role Phone Kameron German MD Primary Care Provider Encounter Details Date Type Department Care Team Description 01/23/2008 [facility] Darshana Prajapati, Water Filter Cleaner Rehabilitation PT Services [facility] [place] [address] [facility] [place] [address] [phone] Social History Tobacco Use Types Packs/Day Years Used Date Smoking Tobacco: Never Assessed Sex Assigned at Date Recorded Not on file documented as of this encounter Progress Notes Darshana Prajapati, PT - 10/26/2011 3:29 PM VACCINE CUSTOMER REPRESENTATIVE FINAL PHYSICAL THERAPY DISCHARGE NOTE Patient Self Report: Patient reports that he is planning on returning to work on 02/01. He plans to work half-days Mondays, Wednesdays and Fridays. He also has a behind the wheel driving test on 01/30. Overall, he feels that things are progressing very well. He feels that his strength and overall function continues to improve and he feels that he is ready to go back to work, although he does admit that he sometimes thinks that he can do more than he can tolerate. He is working on trying to monitor his activity level and not overdo it. Patient has been seen for a total of 3 visits since his initial physical therapy evaluation on 12/26/07. Impairment Status: Patient continues to have very mild deviation with head turns, however, much more intermittently than prior. He has improved in his tolerance for activity and has improved hip strength. Functional Status: Patient is able to ambulate independently without an assistive device for distances greater than 1000 feet. He is able to ambulate around obstacles with head turns and quick stops, and also at fast and slow paces. He is able to go up and down inclines and overall various types of terrain without deviations or loss of balance. He still complains of slight wooziness with moving quickly, especially with quick movements that involve head turns, but states that he does not usually experience any loss of balance and he feels it is due to his current blood pressure medication. Carlo is able to go up and down two flights of stairs carrying a 5 pound box on his shoulder. He does not use the rail when ascending stairs; he does use a rail when going downstairs for added security but does not demonstrate any difficulty. We also trialed the treadmill today and he was able to safely ambulate on the treadmill at a speed of 2.0 to 2.5 mph for approximately 3 minutes. This was done to determine if he was safe on the treadmill in order for him to exercise on his treadmill at home independently. Patient was educated to start slowly, to keep his hips and feet aligned with his shoulders and to use the handrails as well as a quick release cord for safety. He was instructed to progress slowly and start on the treadmill for only 5-10 minutes and then see how he feels later that day and the next day before increasing his time frame on the treadmill. Patient verbalized understanding. Balance: Patient also demonstrates independence with balance activities. He is able to perform standing on the trampoline, bouncing a ball and catching a ball with counting to 10, and can throw and catch a ball while counting backwards from 100. This has shown that he is able to maintain his balance with distractions and when having to concentrate on other things while his balance is challenged. We also simulated standing on a ladder. Carlo is able to stand on a box on top of the therapy stairs with a railing in front of him. He uses the railing to stabilize his lower extremities as he would use the rung of a ladder to stabilize when he is standing towards the top of the ladder. He was able to reach forward and sideways to simulate reaching while doing tasks on the ladder without difficulty. Plan of Care Goals: 1. Patient will be independent in a home exercise program for general strength and endurance. Goal Progress: Goal met, although due to patient's cognitive deficits he is not always cognizant of when he is overdoing something. He has been educated on how to progress activities and to monitor his tolerance for 24 hours before increasing his activity level with the same activity. 2. Patient will be able to ambulate without an assistive device for distances of 100 feet with no change in velocity or gait pattern when turning his head to the left and right with minimal complaints of wooziness during gait. Goal Progress: This goal has been met. He is able to demonstrate the above and although he still has complaints of wooziness, these are minimal and feels it is due to his blood pressure medication and it does not pose any significant issues with his function or safety. 3. 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 Goal Progress: This goal is partially met. Patient is able to negotiate stairs reciprocally with no rail up and down when not carrying any objects. He is also able to ambulate up the stairs carrying a 5 pound box on his shoulder without a railing, however, coming down the stairs he prefers to use the railing while carrying an object just for added security. He does so safely and without evidence of risk for falling. Carlo continues to have some cognitive impairments with short-term memory, problem solving and attention. He has needed education regarding how to progress himself with physical activity and to monitor his tolerance for activity by waiting to progress an activity until he is able to see how his body responds to the activity for up to 24 hours. He continues to have speech therapy, which will further address these deficits. Evaluation: Carlo is doing well with his overall functional level and it appears that he is ready to return to work 3x/week for half-days. He has informed the therapist that he will have a co-worker with him at all times when he initially goes back to work for added safety and in case he would have any difficulty with tasks. He has increased his activity tolerance for long distance ambulation with minimal fatigue and is also reporting decreased wooziness with head turns and dynamic mobility. Greatest concern on initial evaluation was the ability to perform high level balance activities and functional activities while he is distracted or while having to focus on other things as these are requirements of his job as a manganese wheeler. It is felt that he is doing well with this and, although he does need continued work on his cognitive impairments and awareness of how much to push himself, he is functioning independently and doing well with all activity. Reason For Discharge: Patient has no further physical therapy needs. Discharge Plan: Patient to discharge with home exercise program for continued strength. Patient has also been instructed to initiate ambulation on his treadmill at home for further cardiovascular conditioning and to maintain his overall strength and activity tolerance. Carlo has been instructed that when he wants to try a new activity to pace himself and to just do a little bit at a time and then monitor his tolerance for up to 24 hours after that activity in order to see how he feels and how his body responds to the activity before progressing. Carlo has verbalized understanding regarding these instructions. Thank you for referring Shashank Hastings to physical therapy. If have any questions, please call me at [phone]. Electronically signed on 02/02/2008 13:23 by DARSHANA PRAJAPATI PT MT: roberta Name: SHASHANK HASTINGS MRN: [id number] Account: [id number] : 1960 Visit Date: 01/23/2008 Sex: M Age: 47 Document: [id number] INE CUSTOMER REPRESENTATIVE documented in this encounter Plan of Treatment Not on filedocumented as of this encounter Visit Diagnoses Not on filedocumented in this encounter Care Teams Geospatial Extractor Analysis Relationship Specialty Start Date End Date Kameron German MD PCP - General Family Practice 10/21/11 12/21/16 [facility] [place] [phone] documented as of this encounter
--- OUTSIDE RECORDS SUMMARY | 2022-10-06 11:30 | XMS_ITS | Encounter Summary ---
:1960 Author Organization [place] Address [address] [place] [address]. [place] [address] Care Team Providers Name Role Phone Unavailable Primary Care Provider Unavailable Encounter Details Date Type Department Care Team Description 03/14/[address] [facility] Deepali Cuevas, [facility] Results [address] [place], [place] [address] (Wo rk) Social History Tobacco Use Types Packs/Day Years Used Date Smoking Tobacco: Never Assessed Sex Assigned at Date Recorded Not on file documented as of this encounter Procedure Notes Deepali Cuevas - 04/22/2008 8:31 AM CDTAssociated Order(s): CONSULT OCCUPATIONAL MED. FINAL OCCUPATIONAL THERAPY PROGRESS NOTE Shashank Hastings has been seen in Occupational Therapy 3 times since last progress note completed02/15/2008. The patient has been seen in Occupational Therapy secondary to cognitive impairments, specifically decreased short-term memory, decreased attention and decreased problem solving affecting his ability to perform ADLs and IADLs safely and independently. 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 Treatment has included cognitive intervention with focus on memory strategies, attention activities and compensatory techniques. The patient continues to make progress with implementing compensatory techniques; however, patient didcancel most recent therapy session without contacting therapies. The patient continues to be appropriate for skilled outpatient Occupational Therapy intervention. OT TREATMENT DIAGNOSIS: Decreased ability to perform ADLs and IADLs secondary to decreased cognition. PATIENT/CLIENT SELF REPORT: Patient reports he is implementing compensatory strategies more consistently and that therapy is helping him. The patient continues to use a pocket calendar with work and home activities in order to compensate for decreased memory, especially with distractions present. The patient reports when he does not incorporate this system and uses his own system, he has had errors at work and in missing appointments. The patient continues to complain of headaches and also complaining of sensory changes on left side of face, which he reports he followed up with primary physician, Dr. German, as well as with neurologist, who patient saw patient on 03/01/2008. Patient reports hehas burned his left hand multiple times with cooking over the past month. The patient also has returned back to work full-time, however, reports this has been difficult due to fatigue and errors. The patient is following up with work regarding need for assistance with lifting and to take breaks as needed due to ongoing fatigue. IMPAIRMENT/FUNCTIONAL STATUS (TESTS AND MEASURES): The patient did not participate in formal reassessment, which was planned for 03/14/2008, due to not attending therapy session. The patient has participated in retesting of stereoagnosis and demonstrates left hand accuracy of 7/8 items identified corre ctly, right hand is 8/8 items. The patient functionally has been able to return to completing ADL tasks, however, reports has burned left hand while cooking x2 over the past month. During cognitive tasks in therapy sessions, patient continues to demonstrate deficits with attention, especially with divided attention activities, partially due to patient being tangential in conversation and easily distracted. INTERVENTIONS THIS SESSION: None provided this date due to patient was a cancel/no show for appointment. PLAN OF CARE: Goals to be met within 4 weeks: 1. Patient will demonstrate within functional limit scores on Dynavision visual motor reaction timeand divided attention task with alternating roles using Dynavision in preparation for safe return toIADLs with managing distractions. Goal Progress: Goal not met. 2. Patient will complete complex problem solving activity with 90% accuracy with minimal to moderate distractions in preparation for safe return to IADL and work. Goal Progress: Goal not met. The patient continues to require moderate cues for redirection secondary to impaired attention and tangential. 3. Patient will participate in moderately complex divided attention activity between 2 tasks with only 2 cues provided for redirection. Goal Progress: Goal not met. 4. Patient will demonstrate independent understanding of sensory precautions in order to accommodate for decreased sensation in left hand in preparation for return to work. Goal Progress: Goal partially met. Patient is able to verbalize understanding and has been incorporating some sensory precautions; however, with distractions present, the patient has reported burning hand twice during cooking tasks over the past month. ASSESSMENT: The patient has met 0/4 short-term goals since last progress note. He is currently ableto perform basic ADLs with modified independence and has returned to work and driving; however, patient reports struggling with return to work due to fatigue and cognitive deficits. Patient continues to demonstrate deficits with higher level cognition, especially with impaired memory and with dividingattention with distractions present. These impairments appear to affect patient's ability to complete home management and return to work activities; however, patient does continue to incorporate compensatory strategies at times. Patient will continue to benefit from skilled outpatient occupational therapy for addressing safety concerns, compensatory strategies for memory, and further implementation of sensory precautions to return to IADLs. NEW GOALS (to be met within 4 weeks): Continue with above goals 1 through 4. OUTCOME: Patient's goal of return to work, has been partially met. Patient would like to be returning to work without supervision and without fatigue. Patient also reports he would like to have improved memory with all of his everyday activities as he continues to demonstrate short-term memory deficits. PLANNED INTERVENTIONS/EDUCATIONAL NEEDS: Will continue to see patient in Occupational Therapy to focus on higher level cognitive intervention, specifically short-term memory, attention and problem solving with distractions to increase independence and safety with ADLs and IADLs in the patient's home a [facility] environments. Continue to recommend patient follow up with counseling/behavioral services due to patient's reports of depression and difficulty with coping skills. DISCHARGE PLAN: Plan to continue with occupational therapy 1x/week for approximately 4 weeks. Anticipate discharge at the end of March. Requested to continue therapy due to patient's difficulty with returning to work full-time. Thank you for referring Shashank Hastings to outpatient Occupational Therapy. Please call with anyquestions at [phone]. Electronically signed on 04/23/2008 15:35 by MATTHIAS SEARS MT: [id number] Name: SHASHANK HASTINGS Account: [id number] : 1960 Visit Date: 03/14/2008 Sex: M Age: 47 Document: [id number] cc: Shashank Anne MD documented in this encounter Plan of Treatment Not on filedocumented as of this encounter Procedures Procedure Name Priority Date/Time Associated Comments Diagnosis ZZ CONSULT 04/18/2008 12:52 Results for this OCCUPATIONAL MED. PM CDT procedure are in the results section. documented in this encounter Results CONSULT OCCUPATIONAL MED. (04/18/2008 12:52 PM CDT) Transcriptions Deepali Cuevas - 04/22/2008 8:31 AM CDT [facility] OCCUPATIONAL THERAPY PROGRESS NOTE [facility] last progress note completed 02/15/2008. The patient has been seen in Occupational Therapy secondary to cognitive impairments, specifically decreased short-term memory, decreased a ttention and decreased problem solving affecting his ability to perform ADLs and IADLs safely and independently. These cognitive deficits are the results of a right MCA CVI that the patient was diagnosed with on 0 12/05/2007. Treatment has included cognitive intervention with focus on memory strategies, attention activities and compensatory techniques. The patient continues to make progress with implementing compensatory techniques; however, patient did cancel most recent therapy session without contacting therapies. The patient continues to be appropriate for skilled outpatient Occupational Therapy intervention. OT TREATMENT DIAGNOSIS: Decreased abili ty to perform ADLs and IADLs secondary to decreased cognition. PATIENT/CLIENT SELF REPORT: Patient rep orts he is implementing compensatory strategies more consistently and that therapy is helping him. The patient continues to use a pocket calendar with work and home activities in order to compensate for de creased memory, especially with distractions present. The patient reports when he does not incorporate this system and uses his own system, he has had errors at work and in missing appointments. The patient contin ues to complain of headaches and also complaining of sensory changes on left side of face, which he reports he followed up with primary physician, Dr. German, as well as with neurologist, who patient saw patient on 03/01/2008. Patient reports he has burned his left hand multiple times with cooking over the past month. The patient also has returned back to work full-time, however, reports this has been difficult due to fatigue and er rors. The patient is following up with work regarding need for assistance with lifting and to take breaks as needed due to ongoing fatigue. IMPAIRMENT/FUNCTIONAL STATUS (TESTS AND MEASURES): The patient did not participate in formal reassessment, which was planned for 03/14/2008, due to not attending therapy session. The patient has participated in retesting of stereoagnosis and demonstra fish left hand accuracy of 7/8 items identified correctly, right hand is 8/8 items. The patient functionally has been able to return to completing ADL tasks, however, reports has burned left hand while cooki ng x2 over the past month. During cognitive tasks in therapy sessi ons, patient continues to demonstrate deficits with attention, especially with divided attention activities, partially due to patient being tangential in conversation and easily distracted. INTERVENTIONS THIS SESSION: None provid ed this date due to patient was a cancel/no show for appointment. PLAN OF CARE: Goals to be met within 4 weeks: 1. Patient will demonstrate within func tional limit scores on Dynavision visual motor reaction time and divided attention task with alternating roles using Dynavision in preparation for safe return to IADLs with managing distractions. Goal Progress: Go al not met. 2. Patient will complete complex proble m solving activity with 90% accuracy with minimal to moderate distractions in preparation for safe return to IADL and work. Goal Progress: Goal not met. The patient continues to require moderate cues for r edirection secondary to impaired attention and tangential. 3. Patient will participate in moderate ly complex divided attention activity between 2 tasks with only 2 cues provided for redirection. Goal Progress: Goal not met. 4. Patient will demonstrate independent understanding of sensory precautions in order to accommodate for decreased sensation in left hand in preparation for return to work. Goal Progress: Goal partially met. Patient is able to verbalize murphyi ng and has been incorporating some sensory precautions; however, with distractions present, the patient has reported burning hand twice during cooking tasks over the past month. ASSESSMENT: The patient has met 0/4 gumaro rt-term goals since last progress note. He is currently able to perform basic ADLs with modified independence and has returned to work and driving; however, patient reports struggling with return to work d ue to fatigue and cognitive deficits. Patient continues to demonstrate deficits with higher level cognition, especially with impaired memory and with dividing attention with distractions present. These impairm ents appear to affect patient's ability to complete home management and return to work activities; however, patient does continue to incorporate compensatory strategies at times. Patient will continue to benefit from skilled outpatient occupational therapy for addressing safety concerns, compensatory strategies for memory, and further implementation of sensory precautions to return to IADLs. NEW GOALS (to be met within 4 weeks): C ontinue with above goals 1 through 4. OUTCOME: Patient's goal of return to wo rk, has been partially met. Patient would like to be returning to work without supervision and without fatigue. Patient also reports he would like to have improved memory with all of his everyday activities as he con tinues to demonstrate short-term memory deficits. PLANNED INTERVENTIONS/EDUCATIONAL NEEDS : Will continue to see patient in Occupational Therapy to focus on higher level cognitive intervention, specifically short-term memory, attention and problem solving with distractions to increase independence an d safety with ADLs and IADLs in the patient's home and community environments. Continue to recommend patient follow up with counseling/behavioral services due to patient's reports of depression and difficulty wit h coping skills. DISCHARGE PLAN: Plan to continue with o ccupational therapy 1x/week for approximately 4 weeks. Anticipate discharge at the end of March. Requested to continue therapy due to patient's difficulty with returning to work full-time. Thank you for referring Shashank escobar to outpatient Occupational Therapy. Please call with any questions at [phone]. Electronically signed on 04/23/2008 15: 35 by MATTHIAS SEARS MT: [id number] Name: SHASHANK HASTINGS Account: [id number] : 1960 Visit Date: 03/14/2008 Sex: M Age: 47 Document: [id number] cc: Shashank Anne MD Deepali Cuevas OTR REFERRAL documented in this encounter Visit Diagnoses Not on filedocumented in this encounter
--- OUTSIDE RECORDS SUMMARY | 2022-10-06 11:30 | XMS_ITS | Encounter Summary ---
:1960 Author Organization [place] Address 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 He ended up getting transferred eventually to a rehabilitation, neuro rehabilitation afterwards, and he had left-sided arm symptoms and some speech issues and memory issues, mostly memory, and he seemed toreally be recovering well and has been going to physical therapy. He had been on some metoprolol 25 mg twice a day and they dropped it down to once a day because his blood pressure was a little bit low. He actually got the pass from a friend to go to [employer] yesterday, and he really had not been exercising other than at physical therapy, and he went on a treadmill and walked at a rate of 2 to 2-1/2 miles per hour. He ended up walking for 2 miles, and when he started to slow down, after thathe started to get dizzy, kind of clammy, sat down and was really depleted of his energy, and then hefound that his left hand and arm were numb similar to what he had when he had a stroke but not quiteas bad. It has been kind off and on since yesterday when this occurred and so he thought he better get checked, so he came in to be seen. He did not take his metoprolol this morning, went to physical therapy and physical therapy referred him here. PAST MEDICAL HISTORY: High cholesterol. He had a stroke. They are treating him for hypertension, though it sounds like it is borderline. MEDICATIONS: Aspirin, Lopressor, and Simvastatin. ALLERGIES: None. REVIEW OF SYSTEMS: All systems negative except as stated above. SOCIAL HISTORY: He is . He is here with his . He lives in [place]. PHYSICAL EXAMINATION: VITAL SIGNS: Temperature 95.6, pulse 81, respirations 18, blood pressure 128/93 and O2 saturation 99%. GENERAL: The patient is alert, cooperative and in no respiratory distress. HEENT: Eyes, pupils equal, round and reactive to light. Conjunctivae are clear. Lids are not swollen. Oropharynx, moist mucous membranes without erythema or lesion. NECK: Supple, nontender. BACK: Nontender. CHEST: Symmetric chest rise to inspiration. LUNGS: Clear to auscultation. CARDIOVASCULAR: Regular rate and rhythm without murmur. ABDOMEN: Soft, nondistended and nontender. EXTREMITIES: Normal. SKIN: Well perfused. NEUROLOGIC: He is alert and oriented x3. Cranial nerves II through XII are intact. He has good strength in all extremities, a little bit of decreased sensation to soft touch on his hand, otherwise unremarkable. EMERGENCY DEPARTMENT COURSE: I established an IV, ordered up some blood work and a CT scan and an EKG. The EKG was normal. CT scan came back showing encephalomalacia of the previous stroke area but otherwise negative. His INR and PTT, chemistry panel and CBC all looked normal other than a sodium 145,so really nothing significant there. I discussed the case with Dr. Hernandez, who is the neurologist on-call for the group that saw him in the hospital, and he thought that being that it has been since yesterday when the symptoms started that we would expect to see findings on CT if there was any other issues and they should go ahead and followup and he is to continue his medication but he can follow up with them in and kind of see how things go and he would not change any management at this point. I discussed the case with the patient and his . They had a lot of questions and so I spent some time with him and I set him up for discharge. CLINICAL IMPRESSION: Left arm paresthesias in a patient after a recent stroke. CLINICAL PLAN: He is to follow up with Dr. Laughlin. I want him to call tomorrow to set that up. Heis to continue his current medications including metoprolol. He is to return for worsening symptoms or other new symptoms. Electronically signed on 01/27/2008 06:04 by OMEGA HIGH MD MT: [id number] Name: SHASHANK HASTINGS Account: [id number] : 1960 Visit Date: 01/25/2008 Document: [id number] cc: [facility] ORATION DRILLER documented in this encounter Plan of Treatment Not on filedocumented as of this encounter Visit Diagnoses Not on filedocumented in this encounter
--- OUTSIDE RECORDS SUMMARY | 2022-10-06 11:30 | XMS_ITS | Encounter Summary ---
:1960 Author Organization [place] Address [address] [place] [address]. [place] [address] Care Team Providers Name Role Phone Kameron German MD Primary Care Provider Encounter Details Date Type Department Care Team Description 03/14/2008 Historic Results INTERFACED REPORT Interface, Patrizia paul MD Social History Tobacco Use Types Packs/Day Years Used Date Smoking Tobacco: Never Assessed Sex Assigned at Date Recorded Not on file documented as of this encounter Plan of Treatment Not on filedocumented as of this encounter Procedures Procedure Name Priority Date/Time Associated Diagnosis Comme nts EKG 12 LEAD Routine 03/14/2008 12:27 PM Results for this CDT procedure are i n the results section . documented in this encounter Results EKG 12 LEAD (03/14/2008 12:27 PM CDT) Component Value Ref Range Test Analysis Performed Pathologis t Method Time At Signature Ventricular Rate 70 BPM RADIOLOGY RESULTS Atrial Rate 70 BPM RADIOLOGY RESULTS IL Interval 168 ms RADIOLOGY RESULTS QRS Duration 88 ms RADIOLOGY RESULTS QT 372 ms RADIOLOGY RESULTS QTc 401 ms RADIOLOGY RESULTS P [place] 23 degrees RADIOLOGY RESULTS R AXIS 40 degrees RADIOLOGY RESULTS T [place] 28 degrees RADIOLOGY RESULTS Interpretation AGE AND GENDER SPECIFIC ECG ANALYSIS RADIOLOGY ECG Sinus rhythm RESULTS Normal ECG Unconfirmed report - interpretation of this ECG is compute r generated - see medical record for final interpretation Specimen Anatomical Collection Method Collection Time Receive d Time (Source) Location / / Volume Laterality 03/14/2008 12:27 03/20/2008 8:34 PM CDT AM CDT Transcripton Miguel RODAS ECG ORDERABLES Performing Organization Address City/State/ZIP Code Phon e Number RADIOLOGY RESULTS documented in this encounter Visit Diagnoses Not on filedocumented in this encounter Care Teams Wireless Internet Installer Relationship Specialty Start Date End Date Kameron German MD PCP - General Family Practice 10/21/11 12/21/[address] [id number] documented as of this encounter
--- OUTSIDE RECORDS SUMMARY | 2022-10-06 11:30 | XMS_ITS | Encounter Summary ---
:1960 Author Organization [facility] Address [address] [place] [address]. [place] [address] Care Team Providers Name Role Phone Unavailable Primary Care Provider Unavailable Encounter Details Date Type Department Care Team Description 03/14/2008 Historic Results INTERFACED REPORT Graham Walsh MD [facility] [address] [place] [address] (Wo rk) Social History Tobacco Use Types Packs/Day Years Used Date Smoking Tobacco: Never Assessed Sex Assigned at Date Recorded Not on file documented as of this encounter Plan of Treatment Not on filedocumented as of this encounter Procedures Procedure Name Priority Date/Time Associated Comments Diagnosis INR AND PTT PANEL STAT 03/14/2008 12:30 Result s for this PM CDT procedure are i n the results section. ELECTROLYTE PANEL STAT 03/14/2008 12:30 Result s for this PM CDT procedure are i n the results section. HEMOGRAM DIFFERENTIAL STAT 03/14/2008 12:30 Re sults for this AND PLATELET PM CDT procedure are i n the results section. UREA NITROGEN (BUN) STAT 03/14/2008 12:30 Resu lts for this PM CDT procedure are i n the results section. CREATININE STAT 03/14/2008 12:30 Results for this PM CDT procedure are i n the results section. GLUCOSE STAT 03/14/2008 12:30 Results for this PM CDT procedure are i n the results section. documented in this encounter Results (ABNORMAL) Hemogram differential and platelet (03/14/2008 12:30 PM CDT) Patholo gist Method Time Signature MCV 86 78 - 100 MISYS fl MCH 29.6 26.5 - MISYS 33.0 pg MCHC 34.3 31.5 - MISYS 36.5 g/dL RDW 13.8 10.0 - MISYS 15.0 % WBC 11.2 (H) 4.0 - MISYS 11.0 10e9/L RBC Count 5.00 4.4 - 5.9 MISYS 10e12/L Hemoglobin 14.8 13.3 - MISYS 17.7 g/dL Hematocrit 43.2 40.0 - MISYS 53.0 % % Neutrophils 50 40 - 75 % MISYS % Lymphocytes 35 20 - 48 % MISYS % Monocytes 8 0 - 12 % MISYS % Eosinophils 6 0 - 6 % MISYS % Basophils 1 0 - 2 % MISYS Platelet Count 317 150 - 450 MISYS 10e9/L Absolute 5.7 1.6 - 8.3 MISYS Neutrophil 10e9/L Absolute 3.9 0.8 - 5.3 MISYS Lymphocytes 10e9/L Absolute 0.9 0.0 - 1.3 MISYS Monocytes 10e9/L Absolute 0.6 0.0 - 0.7 MISYS Eosinophils 10e9/L Absolute 0.1 0.0 - 0.2 MISYS Basophils 10e9/L Diff Method Automated MISYS Method Specimen Anatomical Collection Method Collection Time Receive d Time (Source) Location / / Volume Laterality 03/14/2008 12:30 03/14/2008 PM CDT 12:34 PM CDT Royce Walsh MD LAB - BLOOD ORDERABLES Performing Organization Address City/State/ZIP Code Phon e Number MISYS Electrolyte panel (03/14/2008 12:30 PM CDT) P athologist Signature Sodium 143 133 - 144 MISYS mmol/L Potassium 3.8 3.4 - 5.3 MISYS mmol/L Chloride 107 94 - 109 MISYS mmol/L Carbon Dioxide 26 20 - 32 MISYS mmol/L Anion Gap 10 6 - 17 MISYS mmol/L Specimen Anatomical Collection Method Collection Time Receive d Time (Source) Location / / Volume Laterality 03/14/2008 12:30 03/14/2008 PM CDT 12:34 PM CDT Royce Walsh MD LAB - BLOOD ORDERABLES Performing Organization Address City/State/[facility] Phon e Number MISYS Creatinine (03/14/2008 12:30 PM CDT) P athologist Signature Creatinine 0.95 0.80 - MISYS 1.50 mg/dL GFR Estimate 90 >60 MISYS mL/min/1.7 m2 GFR Estimate If >90 >60 MISYS Black mL/min/1.7 m2 Specimen Anatomical Collection Method Collection Time Receive d Time (Source) Location / / Volume Laterality 03/14/2008 12:30 03/14/2008 PM CDT 12:34 PM CDT Royce Walsh MD LAB - BLOOD ORDERABLES Performing Organization Address [facility] Phon e Number MISYS Urea nitrogen (03/14/2008 12:30 PM CDT) athologist Signature Urea Nitrogen 15 5 - 24 MISYS mg/dL Specimen Anatomical Collection Method Collection Time Receive d Time (Source) Location / / Volume Laterality 03/14/2008 12:30 03/14/2008 PM CDT 12:34 PM CDT Royce Walsh MD LAB - BLOOD ORDERABLES Performing Organization Address [facility] Phon e Number MISYS Glucose (03/14/2008 12:30 PM CDT) athologist Signature Glucose 81 60 - 99 MISYS mg/dL Specimen Anatomical Collection Method Collection Time Receive d Time (Source) Location / / Volume Laterality 03/14/2008 12:30 03/14/2008 PM CDT 12:34 PM CDT Royce Walsh MD LAB - BLOOD ORDERABLES Performing Organization Address [facility] Phon e Number MISYS INR AND PTT PANEL (03/14/2008 12:30 PM CDT) athologist Signature INR 0.97 0.86 - 1.14 MISYS PTT 24 22 - 37 sec MISYS Specimen Anatomical Collection Method Collection Time Receive d Time (Source) Location / / Volume Laterality 03/14/2008 12:30 03/14/2008 PM CDT 12:34 PM CDT Royce Walsh MD LAB - BLOOD ORDERABLES Performing Organization Address City/State/ZIP Code Phon e Number MISYS documented in this encounter Visit Diagnoses Not on filedocumented in this encounter
--- OUTSIDE RECORDS SUMMARY | 2022-10-06 11:30 | XMS_ITS | Encounter Summary ---
:1960 Author Organization [facility] Address [address] [place] [address]. [place] [address] Care Team Providers Name Role Phone Unavailable Primary Care Provider Unavailable Encounter Details Date Type Department Care Team Description 03/14/2008 Results Only [facility] Royce Walsh MD Hospital Results EMERGENCY [facility] [address] [facility] [address] [place], [place] [id number] (Wo rk) Social History Tobacco Use Types Packs/Day Years Used Date Smoking Tobacco: Never Assessed Sex Assigned at Date Recorded Not on file documented as of this encounter Plan of Treatment Not on filedocumented as of this encounter Procedures Procedure Name Priority Date/Time Associated Diagnosis Comme nts HC CT HEAD WO Routine 03/14/2008 12:58 PM Results for this CONTRAST CDT procedure are i n the results section. documented in this encounter Results CT SCAN HEAD/BRAIN (03/14/2008 12:58 PM CDT) Anatomical Region Laterality Modality Other Specimen (Source) Anatomical Collection Method Collection Time Re ceived Time Location / / Volume Laterality 03/14/2008 12:58 PM CDT Impressions 03/14/2008 1:[address] HEAD W/O CONTRAST* ?? Mar 14, 2008 12 :58:00 PM ?? HISTORY: ??Left-sided weakness. Acute ce rebrovascular infarction. History of stroke. TECHNIQUE: ??Routine noncontrast head CT . COMPARISON: ??01/25/2008. FINDINGS: ??Brain volume is normal for a ge. No mass, mass effect or intracranial hemorrhage. No evidence of acute infarct. ??There is encephalomalacia in the right temporal l obe from previous infarct. There is mild mucosal thickening in the frontal, ethmoid and sphenoid sinuses. IMPRESSION: ?? 1. No acute brain abnormality. 2. Sinus disease. Royce Walsh MD SPECIAL IMAGING [facility]UDIES documented in this encounter Visit Diagnoses Not on filedocumented in this encounter
--- OUTSIDE RECORDS SUMMARY | 2022-10-06 11:30 | XMS_ITS | Encounter Summary ---
:1960 Author Organization [address] [place] [address] Care Team Providers Name Role Phone Unavailable Primary Care Provider Unavailable Encounter Details Date Type Department Care Team Description 02/17/2008 Consultation [facility] Isabella Maciel, BILL OF MATERIALS CLERK Hospital Results [address] [address] (Wo rk) Social History Tobacco Use Types Packs/Day Years Used Date Smoking Tobacco: Never Assessed Sex Assigned at Date Recorded Not on file documented as of this encounter Procedure Notes Isabella Maciel, BILL OF MATERIALS CLERK - 03/08/2008 2:43 PM CDT FINAL SPEECH-LANGUAGE PATHOLOGY PROGRESS REPORT PATIENT INFORMATION: 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 Please refer to the initial evaluation report dated 12/21/07 for further details of past medical history. THERAPY PROGRESS: 1. Goal increased: Complex level auditory comprehension tasks for 6-7 sentence length information with 80% accuracy completed independently. Patient recalled auditory information with 70% accuracy on 01/30/08. APT lesson 7 without referent 80% independently, 100% with moderate assistance. APT lesson 8 40% independently, 90% accuracy with maximal cues. 2. Goal increased: Visual and auditory recall for daily events with minimal assistance for use of memory book and other compensatory strategies with 85% effectiveness. Patient able to refer back in notes with approximately 50% accuracy for completion of tasks. Patient requires moderate assistance foruse of memory book at this time. He reports difficulty with carryover as he is not able to carry a larger notebook with him on the job. 3. Goal increased: Memory and recall of visual and auditory information after a two day delay from presentation with 85% accuracy and moderate assistance. Visual recall of 6 items 40% accuracy independently. On 02/02/08, with repetition, performance improved to 90% accuracy with cues to repeat aloud and use strategies. 4. Goal met: Complex logic for daily needs with 80% accuracy with minimal assistance. With minimal assistance the patient was able to complete Sodoku puzzles with 100% accuracy in 5 minutes. He was able to complete Aces Up card games with minimal assistance and 80% accuracy for logical reasoning. Goal increased to: Complex multi-step logic for daily needs at home and return to work with 80% accuracyindependently. 5. Goal continues: Alternating and divided attention for 60 minutes independently without breaking concentration or becoming off topic. Initiated Dangten DS for divided and alternating attention. Patient's performance in baseball improved from 35 points to 43 points. Improved attention to task note d in structured situations. Plan to continue with unstructured activities. 6. Goal continues: Home exercise program geared towards the above goals completed independently. SUMMARY AND RECOMMENDATIONS: Mild impairments persist in auditory comprehension of multi-paragraph length material, attention to detail particularly with multiple distractions present, and memory. Strengths include strong motivation and excellent recovery thus far. Speech language pathology services are recommended 2x/week for a period of one month. Re-evaluation if suggested at that time to furtherdetermine a plan of care. The long-term duration of treatment is anticipated to be between 2 and 4 months. Thank you for your referral of this patient. Please call with any questions at [phone]. Electronically signed on 03/08/2008 14:42 by ISABELLA MACIEL MA,CCC-BILL OF MATERIALS CLERK MT: roberta Name: SHASHANK HASTINGS MRN: [id number] Account: [id number] : 1960 Visit Date: 02/17/2008 Sex: M Age: 47 Document: [id number] documented in this encounter Plan of Treatment Not on filedocumented as of this encounter Procedures Procedure Name Priority Date/Time Associated Diagnosis Comme nts SHABNAM CONSULT SPEECH 03/05/2008 Results fo r this THERAPY procedure are i n the results section . documented in this encounter Results CONSULT SPEECH THERAPY (03/05/2008) Transcriptions Isabella Maciel, CALLUM - 03/08/2008 2:43 PM CDT FINAL SPEECH-LANGUAGE PATHOLOGY PROGRESS REPORT PATIENT INFORMATION: Mr. Hastings ex perienced a right MCA CVA with direct TPA on 12/05/07. Please refer to the initial evaluation report dated 12/21/07 for further details of past medical history. THERAPY PROGRESS: 1. Goal increased: Complex level audito ry comprehension tasks for 6-7 sentence length information with 80% accuracy completed independently. Patient recalled auditory information with 70% accuracy on 01/30/08. APT lesson 7 without referent 80% independen tly, 100% with moderate assistance. APT lesson 8 40% independently, 90% accuracy with maximal cues. 2. Goal increased: Visual and auditory recall for daily events with minimal assistance for use of memory book and other compensatory strategies with 85% effectiveness. Patient able to refer back in notes with approximately 50% accuracy for comp letion of tasks. Patient requires moderate assistance for use of memory book at this time. He reports difficulty with carryover as he is not able to carry a larger notebook with him on the job. 3. Goal increased: Memory and recall of visual and auditory information after a two day delay from presentation with 85% accuracy and moderate assistance. Visual recall of 6 items 40% accuracy independently. On 02/02/08, with repetition, performance i mproved to 90% accuracy with cues to repeat aloud and use strategies. 4. Goal met: Complex logic for daily ne eds with 80% accuracy with minimal assistance. With minimal assistance the patient was able to complete Sodoku puzzles with 100% accuracy in 5 minutes. He was able to complete Aces Up card games with minimal assistan ce and 80% accuracy for logical reasoning. Goal increased to: Complex multi-step logic for daily needs at home and return to work with 80% accuracy independently. 5. Goal continues: Alternating and divi ded attention for 60 minutes independently without breaking concentration or becoming off topic. Initiated John CHRISTIANSEN for divided and alternating attention. Patient's performance in baseball improved from 35 points to 43 points. Improved attention to task noted in structured situations. Plan to continue with unstructured activities. 6. Goal continues: Home exercise progra m geared towards the above goals completed independently. SUMMARY AND RECOMMENDATIONS: Mild impai rments persist in auditory comprehension of multi-paragraph length material, attention to detail particularly with multiple distractions present, and memory. Strengths include strong motivation and excellent recovery thus far. Speech language pathology services are recommended 2x/week for a period of one month. Re- evaluation if suggested at that time to further determine a plan of care. The long-term duration of treatmen t is anticipated to be between 2 and 4 months. Thank you for your referral of this pat ient. Please call with any questions at [phone]. Electronically signed on 03/08/2008 14: 42 by ISABELLA MACIEL MA,CCC-BILL OF MATERIALS CLERK MT: roberta Name: SHASHANK HASTINGS MRN: [id number] Account: [id number] : 1960 Visit Date: 02/17/2008 Sex: M Age: 47 Document: [id number] Isabella Maciel BILL OF MATERIALS CLERK REFERRAL documented in this encounter Visit Diagnoses Not on filedocumented in this encounter
--- OUTSIDE RECORDS SUMMARY | 2022-10-06 11:31 | XMS_ITS | Encounter Summary ---
:1960 Author Organization [facility] Address [address] [place] [address] Care Team Providers Name Role Phone Unavailable Primary Care Provider Unavailable Encounter Details Date Type Department Care Team Description 12/15/2007 Historic Results Physical Medicine and Johny, Sc robb Mccollum MD [facility] [address] [place], [place] [id number] [place], [place] 1st Floor, Clinic [address] [place] [address] [place] [address] [phone] (Work) [phone] Social History Tobacco Use Types Packs/Day Years Used Date Smoking Tobacco: Never Assessed Sex Assigned at Date Recorded Not on file documented as of this encounter Plan of Treatment Not on filedocumented as of this encounter Procedures Procedure Name Priority Date/Time Associated Diagnosis Comme nts GLUCOSE BY METER Routine 12/15/2007 5:04 PM Resul ts for this HOME SUPERVISOR procedure are i n the results section. GLUCOSE BY METER Routine 12/15/2007 12:09 PM Resu lts for this HOME SUPERVISOR procedure are i n the results section. GLUCOSE BY METER Routine 12/15/2007 7:45 AM Resul ts for this HOME SUPERVISOR procedure are i n the results section. HEMOGRAM AND Routine 12/15/2007 7:28 AM Results f or this PLATELET HOME SUPERVISOR procedure are i n the results section. BASIC METABOLIC Routine 12/15/2007 7:28 AM Result s for this PANEL HOME SUPERVISOR procedure are i n the results section. documented in this encounter Results Glucose by meter (12/15/2007 5:04 PM HOME SUPERVISOR) athologist Signature Glucose 80 60 - 99 MISYS mg/dL Comment: RN/Dr notified Specimen Anatomical Collection Method Collection Time Receive d Time (Source) Location / / Volume Laterality 12/15/2007 5:04 PM 8 HOME SUPERVISOR 12:50 AM HOME SUPERVISOR Tomy Mcclain MD LAB - ANGELY POCT Performing Organization Address [facility] Code Phon e Number MISYS (ABNORMAL) Glucose by meter (12/15/2007 12:09 PM HOME SUPERVISOR) P athologist Signature Glucose 122 (H) 60 - 99 MISYS mg/dL Specimen Anatomical Collection Method Collection Time Receive d Time (Source) Location / / Volume Laterality 12/15/2007 12:09 12/16/2007 PM HOME SUPERVISOR 12:46 AM HOME SUPERVISOR Tomy Mcclain MD LAB - ANGELY POCT Performing Organization Address [facility] Code Phon e Number MISYS Glucose by meter (12/15/2007 7:45 AM HOME SUPERVISOR) athologist Signature Glucose 99 60 - 99 MISYS mg/dL Specimen Anatomical Collection Method Collection Time Receive d Time (Source) Location / / Volume Laterality 12/15/2007 7:45 AM 8 HOME SUPERVISOR 12:50 AM HOME SUPERVISOR Tomy Mcclain MD LAB - ANGELY POCT Performing Organization Address [facility] Phon e Number MISYS Basic metabolic panel (12/15/2007 7:28 AM HOME SUPERVISOR) P athologist Signature Sodium 142 133 - 144 MISYS mmol/L Potassium 3.8 3.4 - 5.3 MISYS mmol/L Chloride 107 94 - 109 MISYS mmol/L Carbon Dioxide 26 20 - 32 MISYS mmol/L Glucose 86 60 - 99 MISYS mg/dL Urea Nitrogen 10 5 - 24 MISYS mg/dL Creatinine 0.90 0.80 - MISYS 1.50 mg/dL GFR Estimate >90 >60 MISYS mL/min/1.7 m2 GFR Estimate If >90 >60 MISYS Black mL/min/1.7 m2 Calcium 8.7 8.5 - 10.4 MISYS mg/dL Anion Gap 8.7 6 - 17 MISYS mmol/L Specimen Anatomical Collection Method Collection Time Receive d Time (Source) Location / / Volume Laterality 12/15/2007 7:28 AM 01/24/200 8 8:55 HOME SUPERVISOR AM HOME SUPERVISOR Tomy Mcclain MD LAB - BLOOD ORDERABLES Performing Organization Address City/State/ZIP Code Phon e Number MISYS (ABNORMAL) Hemogram and platelet (12/15/2007 7:28 AM HOME SUPERVISOR) Analysis Performed At [facility] Time Signature MCV 88 78 - 100 MISYS fl MCH 29.9 26.5 - MISYS 33.0 pg MCHC 34.2 31.5 - MISYS 36.5 g/dL RDW 14.1 10.0 - MISYS 15.0 % WBC 13.5 (H) 4.0 - 11.0 MISYS 10e9/L RBC Count 5.18 4.4 - 5.9 MISYS 10e12/L Hemoglobin 15.5 13.3 - MISYS 17.7 g/dL Hematocrit 45.3 40.0 - MISYS 53.0 % Platelet Count 400 150 - 450 MISYS 10e9/L Specimen Anatomical Collection Method Collection Time Receive d Time (Source) Location / / Volume Laterality 12/15/2007 7:28 AM 8 8:55 HOME SUPERVISOR AM HOME SUPERVISOR Tomy Mcclain MD LAB - BLOOD ORDERABLES Performing Organization Address City/State/ZIP Code Phon e Number MISYS documented in this encounter Visit Diagnoses Not on filedocumented in this encounter
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
--- OUTSIDE RECORDS SUMMARY | 2022-10-06 11:31 | XMS_ITS | Encounter Summary ---
:1960 Author Organization [facility] Address [address] [place] [address] Care Team Providers Name Role Phone Unavailable Primary Care Provider Unavailable Encounter Details Date Type Department Care Team Description 12/14/2007 Historic Results Physical Medicine and Johny, Rickey Mccollum MD [facility] [address] [place], [place] [id number] [place], [place] 1st Floor, Clinic [address] [place] [address] [place] [phone] (Work) [phone] Social History Tobacco Use Types Packs/Day Years Used Date Smoking Tobacco: Never Assessed Sex Assigned at Date Recorded Not on file documented as of this encounter Plan of Treatment Not on filedocumented as of this encounter Procedures Procedure Name Priority Date/Time Associated Diagnosis Comme nts GLUCOSE BY METER Routine 12/14/2007 5:28 PM Resul ts for this AIR INTELLIGENCE SPECIALIST procedure are i n the results section. GLUCOSE BY METER Routine 12/14/2007 7:50 AM Resul ts for this AIR INTELLIGENCE SPECIALIST procedure are i n the results section. documented in this encounter Results Glucose by meter (12/14/2007 5:28 PM AIR INTELLIGENCE SPECIALIST) P athologist Signature Glucose 97 60 - 99 MISYS mg/dL Comment: RN/Dr notified Specimen Anatomical Collection Method Collection Time Receive d Time (Source) Location / / Volume Laterality 12/14/2007 5:28 PM 8 AIR INTELLIGENCE SPECIALIST 12:30 AM AIR INTELLIGENCE SPECIALIST Tomy Mcclain MD [facility] POCT Performing Organization Address City/State/ZIP Code Phon e Number MISYS Glucose by meter (12/14/2007 7:50 AM AIR INTELLIGENCE SPECIALIST) P athologist Signature Glucose 94 60 - 99 MISYS mg/dL Specimen Anatomical Collection Method Collection Time Receive d Time (Source) Location / / Volume Laterality 12/14/2007 7:50 AM 8 AIR INTELLIGENCE SPECIALIST 12:30 AM AIR INTELLIGENCE SPECIALIST Tomy Mcclain MD [facility] POCT Performing Organization Address City/State/ZIP Code Phon e Number MISYS documented in this encounter Visit Diagnoses Not on filedocumented in this encounter
--- OUTSIDE RECORDS SUMMARY | 2022-10-06 11:31 | XMS_ITS | Encounter Summary ---
:1960 Author Organization [facility] Address [address] [place] [address]. [place] [address] Care Team Providers Name Role Phone Unavailable Primary Care Provider Unavailable Encounter Details Date Type Department Care Team Description 12/06/2007 Historic Results INTERFACED REPORT Steph Linda MD [facility] [address] [place], [place] [phone] (Wo rk) Social History Tobacco Use Types Packs/Day Years Used Date Smoking Tobacco: Never Assessed Sex Assigned at Date Recorded Not on file documented as of this encounter Plan of Treatment Not on filedocumented as of this encounter Procedures Procedure Name Priority Date/Time Associated Comments Diagnosis BASIC METABOLIC PANEL Timed 12/06/2007 4:20 PM Results for this PETROLEUM SAMPLER procedure are i n the results section. GLUCOSE BY METER Routine 12/06/2007 4:05 PM Resul ts for this PETROLEUM SAMPLER procedure are i n the results section. GLUCOSE BY METER Routine 12/06/2007 11:31 Results for this AM PETROLEUM SAMPLER procedure are i n the results section. GLUCOSE BY METER Routine 12/06/2007 9:21 AM Resul ts for this PETROLEUM SAMPLER procedure are i n the results section. HEMOGRAM DIFFERENTIAL Routine 12/06/2007 4:00 AM Results for this AND PLATELET PETROLEUM SAMPLER procedure are i n the results section. UA MACROSCOPIC WITH Routine 12/06/2007 4:00 AM Re sults for this REFLEX TO MICRO PETROLEUM SAMPLER procedure ar e in the results section. MAGNESIUM Routine 12/06/2007 4:00 AM Results f or this PETROLEUM SAMPLER procedure are i n the results section. LIPID PROFILE Routine 12/06/2007 4:00 AM Results for this PETROLEUM SAMPLER procedure are i n the results section. ERYTHROCYTE Routine 12/06/2007 4:00 AM Results f or this SEDIMENTATION RATE PETROLEUM SAMPLER procedure are in AUTO the results section. BASIC METABOLIC PANEL Routine 12/06/2007 4:00 AM Results for this PETROLEUM SAMPLER procedure are i n the results section. GLUCOSE BY METER Routine 12/06/2007 3:54 AM Resul ts for this PETROLEUM SAMPLER procedure are i n the results section. GLUCOSE BY METER Routine 12/06/2007 12:17 Results for this AM PETROLEUM SAMPLER procedure are i n the results section. documented in this encounter Results (ABNORMAL) Basic metabolic panel (12/06/2007 4:20 PM PETROLEUM SAMPLER) P athologist Signature Sodium 149 (H) 133 - 144 MISYS mmol/L Potassium 3.9 3.4 - 5.3 MISYS mmol/L Chloride 115 (H) 94 - 109 MISYS mmol/L Carbon Dioxide 24 20 - 32 MISYS mmol/L Glucose 175 (H) 60 - 99 MISYS mg/dL Urea Nitrogen 6 5 - 24 MISYS mg/dL Creatinine 1.01 0.80 - MISYS 1.50 mg/dL GFR Estimate 83 >60 MISYS mL/min/1.7 m2 GFR Estimate If >90 >60 MISYS Black mL/min/1.7 m2 Calcium 9.0 8.5 - 10.4 MISYS mg/dL Anion Gap 10 6 - 17 MISYS mmol/L Specimen Anatomical Collection Method Collection Time Receive d Time (Source) Location / / Volume Laterality 12/06/2007 4:20 PM 8 3:00 PETROLEUM SAMPLER PM PETROLEUM SAMPLER Kyle Laughlin MD LAB - BLOOD ORDERABLES Performing Organization Address City/State/ZIP Code Phon e Number MISYS (ABNORMAL) Glucose by meter (12/06/2007 4:05 PM PETROLEUM SAMPLER) P athologist Signature Glucose 202 (H) 60 - 99 MISYS mg/dL Specimen Anatomical Collection Method Collection Time Receive d Time (Source) Location / / Volume Laterality 12/06/2007 4:05 PM 8 7:45 PETROLEUM SAMPLER AM PETROLEUM SAMPLER Fredrick Linda MD LAB - BEAKER POCT Performing Organization Address City/State/ZIP Code Phon e Number MISYS (ABNORMAL) Glucose by meter (12/06/2007 11:31 AM PETROLEUM SAMPLER) athologist Signature Glucose 143 (H) 60 - 99 MISYS mg/dL Specimen Anatomical Collection Method Collection Time Receive d Time (Source) Location / / Volume Laterality 12/06/2007 11:31 12/07/2007 7:45 AM PETROLEUM SAMPLER AM PETROLEUM SAMPLER Fredrick ZELAYA - [place] POCT Performing Organization Address [facility] Phon e Number MISYS (ABNORMAL) Glucose by meter (12/06/2007 9:21 AM PETROLEUM SAMPLER) athologist Signature Glucose 131 (H) 60 - 99 MISYS mg/dL Specimen Anatomical Collection Method Collection Time Receive d Time (Source) Location / / Volume Laterality 12/06/2007 9:21 AM 8 7:50 PETROLEUM SAMPLER AM PETROLEUM SAMPLER Fredrick ZELAYA - [place] POCT Performing Organization Address [facility] Phon e Number MISYS (ABNORMAL) UA macroscopic with reflex to micro (12/06/2007 4:00 AM PETROLEUM SAMPLER) Component Value Ref Test Analysis Performed At [facility] Range Method Time Signature Source Catheterized MISYS Urine Color Urine Yellow MISYS Appearance Urine Clear MISYS Glucose Urine Negative NEG MISYS mg/dL Bilirubin Urine Negative NEG MISYS Ketones Urine Negative NEG MISYS mg/dL Specific [place] 1.010 1.003 - MISYS Urine 1.035 Blood Urine Negative NEG MISYS pH Urine 7.5 (H) 5.0 - MISYS 7.0 pH Protein Albumin Negative NEG MISYS Urine mg/dL Urobilinogen 0.2 0.2 - MISYS Urine 1.0 EU/dL Nitrite Urine Negative NEG MISYS Leukocyte Negative NEG MISYS Esterase Urine Specimen Anatomical Collection Method Collection Time Receive d Time (Source) Location / / Volume Laterality 12/06/2007 4:00 AM 8 7:46 PETROLEUM SAMPLER PM PETROLEUM SAMPLER Kyle Laughlin MD LAB - URINE ORDERABLES Performing Organization Address [facility] Phon e Number MISYS (ABNORMAL) Erythrocyte sedimentation rate auto (12/06/2007 4:00 AM PETROLEUM SAMPLER) athologist Signature Sed Rate 25 (H) 0 - 15 mm/h MISYS Specimen (Source) Anatomical Collection Method Collection Time Re ceived Time Location / / Volume Laterality 12/06/2007 4:00 AM 8 PETROLEUM SAMPLER Kyle Laughlin MD LAB - BLOOD ORDERABLES Performing Organization Address City/State/ZIP Code Phon e Number MISYS (ABNORMAL) Hemogram differential and platelet (12/06/2007 4:00 AM PETROLEUM SAMPLER) Component Value Ref Test Analysis Performed At Patholo gist Range Method Time Signature MCV 89 78 - 100 MISYS fl MCH 29.4 26.5 - MISYS 33.0 pg MCHC 32.9 31.5 - MISYS 36.5 g/dL RDW 14.7 10.0 - MISYS 15.0 % WBC 11.1 (H) 4.0 - MISYS 11.0 10e9/L RBC Count 5.03 4.4 - MISYS 5.9 10e12/L Hemoglobin 14.8 13.3 - MISYS 17.7 g/dL Hematocrit 44.9 40.0 - MISYS 53.0 % % Neutrophils 62 40 - 75 MISYS % % Lymphocytes 35 20 - 48 MISYS % % Monocytes 3 0 - 12 % MISYS Platelet Count 387 150 - MISYS 450 10e9/L Absolute 6.9 1.6 - MISYS Neutrophil 8.3 10e9/L Absolute 3.9 0.8 - MISYS Lymphocytes 5.3 10e9/L Absolute 0.3 0.0 - MISYS Monocytes 1.3 10e9/L Nucleated RBCs 1 (H) 0 /100 MISYS Diff Method Manual MISYS Differential Anisocytosis Slight MISYS Specimen (Source) Anatomical Collection Method Collection Time Re ceived Time Location / / Volume Laterality 12/06/2007 4:00 AM 8 PETROLEUM SAMPLER Joie Pina MD LAB - BLOOD ORDERABLES Performing Organization Address City/[facility]/ZIP Code Phon e Number MISYS (ABNORMAL) Basic metabolic panel (12/06/2007 4:00 AM PETROLEUM SAMPLER) P athologist Signature Sodium 154 (H) 133 - 144 MISYS mmol/L Potassium 3.7 3.4 - 5.3 MISYS mmol/L Chloride 119 (H) 94 - 109 MISYS mmol/L Carbon Dioxide 28 20 - 32 MISYS mmol/L Glucose 118 (H) 60 - 99 MISYS mg/dL Urea Nitrogen 8 5 - 24 MISYS mg/dL Creatinine 0.94 0.80 - MISYS 1.50 mg/dL GFR Estimate >90 >60 MISYS mL/min/1.7 m2 GFR Estimate If >90 >60 MISYS Black mL/min/1.7 m2 Calcium 8.4 (L) 8.5 - 10.4 MISYS mg/dL Anion Gap 7 6 - 17 MISYS mmol/L Specimen (Source) Anatomical Collection Method Collection Time Re ceived Time Location / / Volume Laterality 12/06/2007 4:00 AM 8 PETROLEUM SAMPLER Joie Pina MD LAB - BLOOD ORDERABLES Performing Organization Address City/State/ZIP Code Phon e Number MISYS (ABNORMAL) Lipid panel (12/06/2007 4:00 AM PETROLEUM SAMPLER) P athologist Signature Cholesterol 205 (H) 0 - 200 MISYS mg/dL Comment: LDL Cholesterol is the primary guide to therapy: LDL-cholesterol goal in high risk patients is <100 mg/dL and in very high risk patients is <70 mg/dL. The NCEP recommends further evaluation of: patients with cholesterol <200 mg/dL if additionalrisk factors are present, cholesterol >240 mg/dL, triglycerides >150 mg/dL, or HDL <40 mg/dL. Triglycerides 141 0 - 150 mg/dL MISYS HDL Cholesterol 34 (L) 40 - 110 mg/dL MISYS LDL Cholesterol Calculated 142 (H) 0 - 129 mg/dL MISYS VLDL-Cholesterol 28 0 - 30 mg/dL MISYS Cholesterol/HDL Ratio 5.9 (H) 0.0 - 5.0 MISYS Specimen Anatomical Collection Method Collection Time Receive d Time (Source) Location / / Volume Laterality 12/06/2007 4:00 AM 8 4:11 PETROLEUM SAMPLER AM PETROLEUM SAMPLER Kyle Laughlin MD LAB - BLOOD ORDERABLES Performing Organization Address City/State/ZIP Code Phon e Number MISYS (ABNORMAL) Magnesium (12/06/2007 4:00 AM PETROLEUM SAMPLER) P athologist Signature Magnesium 2.5 (H) 1.6 - 2.3 MISYS mg/dL Specimen Anatomical Collection Method Collection Time Receive d Time (Source) Location / / Volume Laterality 12/06/2007 4:00 AM 8 PETROLEUM SAMPLER 10:02 AM PETROLEUM SAMPLER Kyle Laughlin MD LAB - BLOOD ORDERABLES Performing Organization Address [facility] Phon e Number MISYS (ABNORMAL) Glucose by meter (12/06/2007 3:54 AM PETROLEUM SAMPLER) P athologist Signature Glucose 133 (H) 60 - 99 MISYS mg/dL Specimen Anatomical Collection Method Collection Time Receive d Time (Source) Location / / Volume Laterality 12/06/2007 3:54 AM 8 7:31 PETROLEUM SAMPLER AM PETROLEUM SAMPLER Fredrick ZELAYA - ANGELY POCT Performing Organization Address [facility] Phon e Number MISYS (ABNORMAL) Glucose by meter (12/06/2007 12:17 AM PETROLEUM SAMPLER) P athologist Signature Glucose 138 (H) 60 - 99 MISYS mg/dL Specimen Anatomical Collection Method Collection Time Receive d Time (Source) Location / / Volume Laterality 12/06/2007 12:17 12/06/2007 7:31 AM PETROLEUM SAMPLER AM PETROLEUM SAMPLER Fredrick ZELAYA - [place] POCT Performing Organization Address [facility] Phon e Number MISYS documented in this encounter Visit Diagnoses Not on filedocumented in this encounter
--- OUTSIDE RECORDS SUMMARY | 2022-10-06 11:31 | XMS_ITS | Encounter Summary ---
:1960 Author Organization [facility] Address [address] [place] [address] Care Team Providers Name Role Phone Unavailable Primary Care Provider Unavailable Encounter Details Date Type Department Care Team Description 12/17/2007 Historic Results Physical Medicine and Johny, Rickey Mccollum MD [facility] [address] [place], [place] [id number], [place] 1st Floor, Clinic [address] [place] [address] [place] [phone] (Work) [phone] Social History Tobacco Use Types Packs/Day Years Used Date Smoking Tobacco: Never Assessed Sex Assigned at Date Recorded Not on file documented as of this encounter Plan of Treatment Not on filedocumented as of this encounter Procedures Procedure Name Priority Date/Time Associated Diagnosis Comme nts GLUCOSE BY METER Routine 12/17/2007 8:05 AM Resul ts for this ASSISTANT RESTAURANT GENERAL MANAGER procedure are i n the results section. HEMOGRAM AND Routine 12/17/2007 7:25 AM Results f or this PLATELET ASSISTANT RESTAURANT GENERAL MANAGER procedure are i n the results section. documented in this encounter Results (ABNORMAL) Glucose by meter (12/17/2007 8:05 AM ASSISTANT RESTAURANT GENERAL MANAGER) P athologist Signature Glucose 101 (H) 60 - 99 MISYS mg/dL Specimen Anatomical Collection Method Collection Time Receive d Time (Source) Location / / Volume Laterality 12/17/2007 8:05 AM 8 ASSISTANT RESTAURANT GENERAL MANAGER 12:35 AM ASSISTANT RESTAURANT GENERAL MANAGER Tomy Mcclain MD [facility] POCT Performing Organization Address City/State/ZIP Code Phon e Number MISYS (ABNORMAL) Hemogram and platelet (12/17/2007 7:25 AM ASSISTANT RESTAURANT GENERAL MANAGER) Analysis Performed At Patho logist Time Signature MCV 88 78 - 100 MISYS fl MCH 29.7 26.5 - MISYS 33.0 pg MCHC 33.6 31.5 - MISYS 36.5 g/dL RDW 14.4 10.0 - MISYS 15.0 % WBC 14.4 (H) 4.0 - 11.0 MISYS 10e9/L RBC Count 5.02 4.4 - 5.9 MISYS 10e12/L Hemoglobin 14.9 13.3 - MISYS 17.7 g/dL Hematocrit 44.3 40.0 - MISYS 53.0 % Platelet Count 439 150 - 450 MISYS 10e9/L Specimen Anatomical Collection Method Collection Time Receive d Time (Source) Location / / Volume Laterality 12/17/2007 7:25 AM 8 ASSISTANT RESTAURANT GENERAL MANAGER 12:58 PM ASSISTANT RESTAURANT GENERAL MANAGER Tomy Mcclain MD LAB - BLOOD ORDERABLES Performing Organization Address City/State/ZIP Code Phon e Number MISYS documented in this encounter Visit Diagnoses Not on filedocumented in this encounter
--- OUTSIDE RECORDS SUMMARY | 2022-10-06 11:31 | XMS_ITS | Encounter Summary ---
:1960 Author Organization [facility] Address [address] [place] [address]. [place] [address] Care Team Providers Name Role Phone Unavailable Primary Care Provider Unavailable Encounter Details Date Type Department Care Team Description 12/06/2007 Historic Notes INTERFACED REPORT Interface, Transcript onMD Social History Tobacco Use Types Packs/Day Years Used Date Smoking Tobacco: Never Assessed Sex Assigned at Date Recorded Not on file documented as of this encounter Progress Notes Interface, Glass Technician - 02/08/2011 4:50 AM CDT General Information General Information - <R> How to be addressed Carlo - <R> Apprise Counselor Needed No Patient Contact Information - <R> patient ombudsperson to Jolly Hastings notify: - Contact Location: Home Local - <R> Phone 1: [phone] - Cell CALL THIS # 1ST!! - patient ombudsperson #2: Nitin Hastings - Cell Advance Directive Advanced Health Care Directive Information - <R> Do you have a Advance No Health Care Directive? - Can patient name a No. The Patient is unable/chooses not to. Surrogate Decision Maker? (Not legally binding) - <R> Would you like to No receive information about Advanced Directives? Health and Illness History Health and Illness History - <R> Reason for stroke admission/chief complaint as stated by patient Allergies ?? No Known Allergies;Active Substance Use Tobacco Use - <R> Tobacco Use Quit tobacco more than 12 months ago., quit - Tobacco Form Cigarettes - Length of Tobacco Use Years of tobacco use, 30 Caffeine Use - <R> Caffeine Use Yes - Caffeine Type Coffee; Pop/soda - Caffeine Amount < 3 cups/day Alcohol Use - <R> History of Alcohol Use Yes - Alcohol Type Beer - Alcohol Frequency Daily - Alcohol Amount 3 - 4 drinks - Length of Alcohol Use Years of alcohol use, [address]/Recreational Drug Use - <R> History of No Street/Recreational Drug Use Review of Systems Cardiac - Cardiac Problems No Pulmonary - Pulmonary Problems No Peripheral Vascular - Peripheral Vascular Yes Problems - Peripheral Vascular Cold hands/feet Conditions/Symptoms Neuro-Muscular - Neuro Muscular Problems Yes - Neuro Muscular Headaches Numbness/tingling ? TIAs Conditions/Symptoms ENT - ENT Problems Yes - ENT Conditions/Symptoms Sinus infection; esophageal dilitation x 2 GI - GI Problems Yes - GI Conditions/Symptoms Diarrhea; Constipation; Nausea; Vomiting; work up for ? Chron's & ulcers; biopsy for gluten sensitivity - Problems Yes Bladder Program - Bladder Program No Skin - Skin Problems Yes - Skin Conditions/Problems extremely dry hands/feet Immune - <R> Immune Problems Yes - Immune Conditions/Symptoms No spleen - <R> Immunizations Current Immunizations current - Influenza vaccine Date of last influenza vaccine, Endocrine - <R> Endocrine Problems No Mental Health - <R> Mental Health Problems No Cognitive Perceptual General Pain Information - Preferred Pain Scale Numerical 0-10 Chronic Pain - History of Chronic Pain Yes - Pain Location Pain where spleen was - Pain Characteristics Sharp; Stabbing - Pain Duration/Frequency Pain is intermittent - How long have you had this 1 + years Pain Sensory Deficits/Cognition - <R> Alterations in Yes Sensation - Alterations in sensations Touch; numbness tingling present - <R> Vision Problems Yes - Vision problems present Decreased visual acuity; refuses to drive @ noc; trouble with small print - <R> Hearing Problems No - <R> Use of Sensory No Assistive Devices - <R> Reading Problems Yes - Reading problems present Comprehension - <R> Communication Problems No - <R> Changes in thought No Process/Behavior Activity-Exercise/Self Care Functional Screen - <R> Ambulation 0 - Independent with ambulation - <R> Transferring 0 - Independent with transfers - <R> Toileting 0- Independent with toileting - <R> Bathing 0- Independent with bathing - <R> Dressing 0- Independent with dressing - <R> Eating 0- Independent with eating - <R> Swallowing no - <R> Fall history within No history of falls last six months - <R> Which of the above None functional risks had a recent onset or change? - Dominant hand Right hand dominant Nutrition/Metabolic Nutrition Risk Screen - <R> Nutrition Risk Screen 40 + lbs in 1 year Sleep/Relaxation Sleep Pattern - <R> Problems Sleeping Yes - Problems Awakens in the middle of the night; Sleep apnea; wakes up hourly; drinks water frequently Coping-Stress Tolerance Coping-Stress - <R> Have you had a recent No major change/significant loss/stressor in your life Values/Beliefs/Spiritual Care Values/Beliefs/Spiritual Care - C: Community: Are you part Anabaptism community:, druze, has of a cultural, spiritual or support of 's police supervisor broadloom catholic community/latter-day? - <R> Would you like pastoral Does not wish to have anyone contacted care/clergy/business systems advisor notified? Mutuality/Individual Preferences Mutuality/Preferences - <R> What information would no help us give you more personalized care? - <R> What if any limitations None on visitors, TV or phone calls would you like Signatures Deyanira Banda (RN)[Signed 01:09] Authored: General Information, Advance Directive, Health and Illness History, Allergies, Substance Use, Review of Systems, Cognitive Perceptual, Activity- Exercise/Self Care, Nutrition/Metabolic, Sleep/Relaxation, Coping-Stress Tolerance, Values/Beliefs/Spiritual Care, Mutuality/Individual Preferences Shania López (Greenkeeper)[Signed 09:58] Authored: Values/Beliefs/Spiritual Care Interface, Glass Technician - 02/08/2011 4:49 AM CDT MD Notification - Notified Person:: MD - Notified Persons Name: Reyna - Notification Time:: 08:30 - Notification Interaction:: Talked with Physician - Was a message left?: No - Purpose of notification:: Radiology result, Change in condition, Changes in vital signs, urine output - Orders received?: No - Comments:: MD called was updated on status of patient. Informed of BP 90's-100's. Urine output of 300-400/hour with NA level returning at 154. Informed that patient receiving D51/2NS with 20KCL at 140/hour. Updated on results of head CT at 0200 and that patient is currently at MRI now. Informed on neuro changes with increase strength in LUE, improved left side facial droop, negative drift, and marked tremors. No new orders at this time. Signatures Rachel Salazar (RN)[Signed 08:32] Authored: Notification Interface, Glass Technician - 02/08/2011 4:49 AM CDT SH --Referral from staff. Talked briefly with pt and pt's . stated, We are fine. Declined offered to talk at this time or need of departmental shipping clerk. 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 also stated that they have good support. Informed them of SHS available to them if they desire services. Offered support. No followup planned at this time. [Signature] Author:Shania López (Greenkeeper) [Signed 09:58] Interface, Glass Technician - 02/08/2011 4:48 AM CDT BRIEF NUTRITION ASSESSMENT REASON FOR ASSESSMENT: Screen * No nutrition problem identified at this time. Nutritional status does not appear to be compromised. Will re-evaluate in 7 days, or sooner if condition changes. Weight > 100% IBW Weight gain 50 lbs since pt quit smoking 04/25. Alb 4.3 (WNL) Chol 205 (high) LDL 142 (high) HDL 34 (low) Ratio 5.9 (high) Na 154 (high) Bedside swallow eval completed. Diet: Regular (Preferences noted: liquids, milkshakes, orange sherbet, low acid) Note pt being worked up for possible gluten sensitivity. Will provide nutrition education, if needed. [Signature] Author:Rachel Cruz (RD, LD, CNSD) [Signed 13:56] Interface, Glass Technician - 02/08/2011 4:48 AM CDT MD Notification - Notified Person:: MD - Notified Persons Name: Alberto - Notification Time:: 15:45 - Notification Interaction:: Talked with Physician - Was a message left?: No - Purpose of notification:: Changes in vital signs - Orders received?: Yes - Comments:: MD called and updated on patients status and condition. Informed that HR in 120's with BP 122/78. MD stated she would enter orders in [facility]. Signatures Rachel Salazar (RN)[Signed 15:50] Authored: MD Notification Interface, Glass Technician - 02/08/2011 4:47 AM CDT SW: D: Acknowledge automatic MD order per CVI protocol but unable to meet with pt. today. Noted PT and OT plan to see pt. tomorrow as she is on bed rest. P: Will review pt's chart and progress and follow up for discharge planning at the earliest opportunity. Lian Loya, [facility], [phone] [Signature] Author:MOSHE LOYA ([facility]) [Signed 16:40] Interface, Glass Technician - 02/08/2011 4:47 AM CDT Sheath Removal - Sheath Removed by: ALMA WEIR - Arterial Sheath: Hand Held, manual pressure for 17 minutes - Patient Instructed: Yes Rachel Garcia (DESTIN)[Signed 19:22] Authored: Sheath Removal documented in this encounter Plan of Treatment Not on filedocumented as of this encounter Visit Diagnoses Not on filedocumented in this encounter
--- OUTSIDE RECORDS SUMMARY | 2022-10-06 11:31 | XMS_ITS | Encounter Summary ---
:1960 Author Organization [place] Address [address] [place] [address]. [place] [address] Care Team Providers Name Role Phone Unavailable Primary Care Provider Unavailable Encounter Details Date Type Department Care Team Description 12/10/2007 Historic Notes INTERFACED REPORT Interface, Transcript onMD Social History Tobacco Use Types Packs/Day Years Used Date Smoking Tobacco: Never Assessed Sex Assigned at Date Recorded Not on file documented as of this encounter Progress Notes Interface, Can Solderer - 02/08/2011 4:37 AM CDT Progress Note - :: PT was A&O X 3, VSS, Lungs sounds clear, bowel sounds active. Nuerologically, slight slurred speech, left facial droop, LUE drift and weakness. C/O of Headache, received Tramadol and tylenol. Scored 2 on the ETOH protocol. tele was Normal Sinus Rhythm. Up with 1 assist. Will continue to monitor. Signatures Alejandro Lancaster)[Signed 07:28] Authored: Progress Note Interface, Can Solderer - 02/08/2011 4:37 AM CDT PHYSICAL THERAPY LOU BALANCE SCALE Sit To Stand Please stand up. Try not to use your hands for support (includes hands on legs for support). 4-Able, no hands, stabilizes independently 3-Able, uses hands 2-Able, uses hands, several times 1-Minimal assist to stand or stabilize 0-Moderate or maximal assist to stand Score: 3 Standing Unsupported Stand for two minutes without holding. 4-Stands safely, 2 minutes 3-Stands 2 minutes with supervision 2-Stands 30 seconds unsupported 1-Several tries to stand 30 seconds unsupported 0-Unable to stand 30 seconds unassisted Score: 4 Sitting Unsupported Instructions: Sit with arms folded for two minutes. 4-Able, safely, 2 minutes 3-Able, 2 minutes with supervision 2-Able, 30 seconds 1-Able, 10 seconds 0-Unable without support 10 seconds Score: 4 Stand to Sit Instructions: Please sit down. 4-Safe with minimal use of hands 3-Controls descent using hands 2-Uses back of legs on chair to control descent 1-Independent with uncontrolled descent 0-Needs assist to sit Score: 3 Transfers Instructions: Please move from chair to bed and back again. One surface with arm rest and one without arm rest. 4-Safe with minor use of hands 3-Safe with definite use of hands 2-Able with verbal cueing and/or supervision 1-Needs one person assist 0-Two people assist or supervision for safety Score: 3 Standing With Eyes Closed Instructions: Close your eyes and stand still for ten seconds. 4-Able, 10 seconds safely 3-Able, 10 seconds with supervision 1-Unable to keep eyes closed 3 seconds, but stays steady 0-Assist needed to prevent fall Score: 3 Standing Unsupported, Feet Together Instructions: Place your feet together and stand without looking. 4-Places feet independently, stand without holding 3-Places feet independently, stand 1 minute with supervision 2-Places feet independently, unable to hold 30 seconds 1-Assist to maintain position, stands 15 seconds 0-Assist to maintain position, unable to hold 15 seconds Score: 3 Reach Forward With Outstretched Arm Instructions: Lift arm to 90 degrees. Stretch out your fingers and reach forward as far as you can. (Examiner places a ruler at end of fingertips when arm is at 90 degress. Fingers should not touch the ruler while reaching forward. The recorded measure is the distance forward that the fingers reach while the subject is in the forward lean position.) 4-Reaches confidently greater than 10 inches 3-Reaches greater than 5 inches safely 2-Reaches greater than 2 inches safely 1-Reaches forward, needs supervision 0-Assist needed to prevent fall Score: 3 Retrieve Object from Floor Instructions: motorcycle repair shop supervisor the shoe which is placed in front of the feet about two feet. 4-Able, safely and easily 3-Able with supervision 2-Unable, reaches 1-2 inches from object and keeps balance independently 1-Unable, needs supervision while trying 0-Unable to try or assist needed to prevent fall Score: 0 Turning To Look Behind Instructions: Turn to look behind you over toward left shoulder. Repeat to the right. 4-Looks both sides, good weight shift 3-Looks one side only, other side less weight shift 2-Turns sideways only, maintains balance 1-Supervision needed when turning 0-Assist needed to prevent fall Score: 4 Turn 360 degrees Instructions: Turn around in a full [place]. Pause for one minute, then turn a full [place] in the other direction. 4-Safe in less than 4 seconds each side 3-Safely one side only less than 4 seconds 2-Safe but slow 1-Needs close supervision or verbal cueing 0-Needs assist while turning Score: 2 Placing Alternate Foot On Stool (4-6 inches) Instructions: Place each foot alternately on the stool. Continue until each foot has touched the stool four times. 4-Stands independently/safely, completes 8 steps in 20 seconds 3-Stands independently, completes 8 steps in greater than 20 seconds 2-Completes 4 steps without aid, with supervision 1-Completes greater than 2 steps, needs minimal assist 0-Assist needed to prevent fall or unable to try Score: 3 Unsupported Tandem Stand (Demonstrate to Subject) Instructions: Place one foot directly in front of the other. If you feel that you cannot place your foot directly in front, try to step far enough ahead that the heel of the forward foot is ahead of the toes on the other foot. 4-Places foot independently, holds 30 seconds 3-Places foot ahead of other independently, holds 30 seconds 2-Takes small step independently, holds 30 seconds 1-Assist to step, holds 30 seconds 0-Loses balance while stepping or standing Score: 0 One Leg Stand Instructions: Stand on one leg as long as you can without holding. 4-Lifts leg independently, holds greater than 10 seconds 3-Lifts leg independently, holds 5-10 seconds 2-Lifts leg independently, holds 3 seconds 1-Tries to lift leg, unable to hold 3 seconds, remains standing independently 0-Unable to try or assist needed to prevent fall Score: 3 Total Score = 38 /56 [Signature] Author:RICARDO FELTON (PT) [Signed 12:18] documented in this encounter Plan of Treatment Not on filedocumented as of this encounter Visit Diagnoses Not on filedocumented in this encounter
--- OUTSIDE RECORDS SUMMARY | 2022-10-06 11:31 | XMS_ITS | Encounter Summary ---
:1960 Author Organization [facility] Address [address] [place] [id number] Care Team Providers Name Role Phone Unavailable Primary Care Provider Unavailable Encounter Details Date Type Department Care Team Description 12/13/2007 Historic Results Physical Medicine and Johny, Rickey Mccollum MD [facility] [address] [place], [place] [id number], [place] 1st Floor, Clinic [address] [place] [address] [place] [address] 5-2018 (Work) [phone] Social History Tobacco Use Types Packs/Day Years Used Date Smoking Tobacco: Never Assessed Sex Assigned at Date Recorded Not on file documented as of this encounter Plan of Treatment Not on filedocumented as of this encounter Procedures Procedure Name Priority Date/Time Associated Diagnosis Comme nts GLUCOSE BY METER Routine 12/13/2007 5:40 PM Resul ts for this CLOTH WASHER OPERATOR procedure are i n the results section. GLUCOSE BY METER Routine 12/13/2007 7:59 AM Resul ts for this CLOTH WASHER OPERATOR procedure are i n the results section. documented in this encounter Results (ABNORMAL) Glucose by meter (12/13/2007 5:40 PM CLOTH WASHER OPERATOR) P athologist Signature Glucose 100 (H) 60 - 99 MISYS mg/dL Specimen Anatomical Collection Method Collection Time Receive d Time (Source) Location / / Volume Laterality 12/13/2007 5:40 PM 8 CLOTH WASHER OPERATOR 11:45 PM CLOTH WASHER OPERATOR Tomy Mcclain MD [facility] POCT Performing Organization Address City/State/[facility] Code Phon e Number MISYS Glucose by meter (12/13/2007 7:59 AM CLOTH WASHER OPERATOR) P athologist Signature Glucose 91 60 - 99 MISYS mg/dL Specimen Anatomical Collection Method Collection Time Receive d Time (Source) Location / / Volume Laterality 12/13/2007 7:59 AM 8 CLOTH WASHER OPERATOR 11:35 PM CLOTH WASHER OPERATOR Tomy Mcclain MD [facility] POCT Performing Organization Address City/State/ZIP Code Phon e Number MISYS documented in this encounter Visit Diagnoses Not on filedocumented in this encounter
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
--- OUTSIDE RECORDS SUMMARY | 2022-10-06 11:31 | XMS_ITS | Encounter Summary ---
:1960 Author Organization [facility] Address [address] [place] [address]. [place] [address] Care Team Providers Name Role Phone Kameron German MD Primary Care Provider Encounter Details Date Type Department Care Team Description 12/21/2007 Historic Statistical Financial Analyst [facility] [place], OT [address] [place], [place] [address] [facility] [id number] [place], [place] [id number] Social History Tobacco Use Types Packs/Day Years Used Date Smoking Tobacco: Never Assessed Sex Assigned at Date Recorded Not on file documented as of this encounter Progress Notes Interface, Statistical Financial Analyst - 10/26/2011 4:05 PM SSN/SSBN WEAPONS EQUIPMENT OPERATOR FINAL OCCUPATIONAL THERAPY EVALUATION Patient is a 47-year-old man with a 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 Patient did received intra-arterial tPA. Patient presents with decreased functional ability in the areas of home management, community skills, functional mobility and work related skills due to the impairments of decreased cognition related to problem solving, memory and attention, decreased balance and mild left upper extremity incoordination. Patient will benefit from skilled outpatient occupational therapy for remediation of skills, cognitive intervention and training related to IADL, and education. Patient is appropriate for skilled outpatient occupational therapy for the treatment goals as identified and as agreed upon with patient today. OT TREATMENT DIAGNOSIS: Decreased ability to perform ADL/IADL secondary to the impairments listed below. IMPAIRMENTS: Patient presents with the following impairments which are limiting his independence with IADL): 1. Cognitive impairment; specifically, demonstrating impairments with short-term memory, problem solving and attention. 2. Mild decrease in left upper extremity sensation and coordination. 3. Fatigue. PRECAUTIONS: No known precautions at this time. PROGNOSIS: Patient demonstrates potential for improvement secondary to high motivation level. PLAN OF CARE: Patient will be seen in occupational therapy 2-3x/week for 4 weeks, then will reassess at that time. Continue OT for: Homemaking training Visual perceptual evaluation/training Cognitive evaluation/intervention Neuromuscular/motor skills training Home program Energy management Patient/family/caregiver education GOALS/OUTCOMES FOR OCCUPATIONAL THERAPY: The following goals to be met within 6 weeks: 1. Patient will demonstrate within functional limit scores on Dynavision, visual motor reaction time and divided attention tasks using Dynavision in preparation for safe return to IADL. 2. Patient [...] with only two cues provided for redirection. 6. Patient will demonstrate independent understanding of sensory precautions in order to accommodate for decreased sensation in left hand in preparation for return to work. CCUPATIONAL THERAPY ORDER DATE/MEDICAL DIAGNOSIS: Order received for occupational therapy evaluation and treatment on 12/15/2007. Patient was referred by Dr. Tomy Mcclain and has a diagnosis of stroke. Onset date 12/05/2007. PATIENT'S IDENTIFIED PROBLEMS/FUNCTIONAL LIMITATIONS: Patient reports that he has had increased difficulty with short-term memory since his stroke. Patient reports that he is frequently forgetting conversations that had previously occurred, as well as general difficulties with short-term memory that is affecting his ability to function. Patient also reports that when he does the dishes, the dishes feel slippery when they are in his left hand. Patient reports that he is currently not able to work or drive. PATIENT'S IDENTIFIED GOALS: Patient reports that he would like to return to work, as well as driving. Patient also reports that he enjoys fishing and would like to return to fishing as spring is nearing. PAST MEDICAL HISTORY/THERAPY HISTORY: 15 minutes was spent reviewing patient's electronic medical record and paper records prior to evaluation. Patient was admitted to [facility] on 12/05/2007 with a right MCA CVI. Patient received intra-arterial tPA. Patient was seen by occupational therapy, physical therapy and speech therapy at [facility] and then was discharged to [facility] on 12/12/2007. While patient was at [facility], the Cognitive Assessment of [place] was completed and results of testing were as follows: No deficits in attention span, remote/recent memory, visual neglect, one to three step directions, immediate auditory and motor memory, temporal awareness, object ID/matching, forward auditory memory, coin recognition, single digit math, abstract reasoning, simple problem solving and mental flexibility with problem solving. Mild deficits in motor recall, mental manipulation of money, foresight and planning, safety and judgment. Moderate deficits with forward and backward visual memory, auditory recall and backward auditory memory. Severe deficits with multiple digit math, moderate and complex problem solving. Patient was then discharged from [facility] on 12/15/2007. Patient's past medical history includes hypertension and hyperlipidemia. PAIN: Patient reports that he continues to have headaches and reports that this is due to still having some blood on his brain. Patient reports that he is currently taking a narcotic, but is unable to recall the name of this narcotic, as well as Tylenol for pain. PATIENT'S OCCUPATIONAL PROFILE: Patient is a and father to three adult children. 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 SOCIAL HISTORY/HOME ENVIRONMENT: Patient lives in a split level home with his and daughter. HOME ACCESSIBILITY ISSUES: None noted at this time. ADAPTIVE EQUIPMENT USED/OWNED: None noted at this time. TRANSPORTATION: Patient is currently not driving due to his recent stroke. Patient is currently relying on family to transport, however, patient would like to return to driving. PATIENT CURRENT STATUS: ACTIVITIES OF DAILY LIVING (ADL)/ INSTRUMENTAL ACTIVITIES OF DAILY LIVING (IADL) : ([place]; Modified [place]: Use of equipment/adaptations or with increased time; SBA: standby assist, set-up or cueing; Minimal Assist: patient does greater than or equal to 75%; Moderate Assist: patient does 50-74%; Maximal Assist: Patient does 25-49%; Dependent: patient does less than 25%) Patient is currently independent with feeding, dressing, toileting, tub shower transfer. Patient's handles all finances as this was previous to patient's stroke. Patient is currently receiving assistance with medication management from his as she is setting up medications and patient is administrating them on his own. Patient had been doing the majority of the cooking prior to his stroke. Patient has returned some to cooking, however, family is assisting with some of the cooking at this time. Patient reports that fatigue is currently having a significant impact on his ability to participate in ADLs/IADLs. FUNCTIONAL MOBILITY STATUS FOR ADL/IADL: Patient currently is ambulating independently, however, patient reports that he has had balance issues since his stroke. Patient reports that he does have an order for physical therapy, however, this has not been set up. Patient would benefit from a physical therapy evaluation as an outpatient as patient may have some higher level balance issues that would affect his safety with his work. UPPER EXTREMITY FUNCTION: AROM: Bilateral upper extremity WFL. Strength: Bilateral upper extremity strength WFL. Hand Function: Dominance: right Neuromuscular Function: Manager Clinical Pharmacy Strength: R= 88 #L= 75 # Lateral Pinch Strength: R= 23 #L= 22 # Palmar Pinch Strength: R= 20 #L= 16 # 9-Hole Peg Test: will assess at next session Patient does report that he has noticed decreased sensation in his left hand, especially when detecting temperature of water. Will further assess left upper extremity sensation. COGNITION: Patient is alert and oriented x3. Patient scored 8 on the Short Blessed Test indicating minimal cognitive impairment. While patient was an inpatient at [facility], patient scored 15 on the Short Blessed Test on 12/08/2007 indicating moderate cognitive impairment. Patient demonstrates continued difficulty with short-term memory. These deficits in short-term memory and problem solving appear to impair patient's ability to complete meal preparation safely and with distractions, as well as complete work related activities safely. VISION/PERCEPTION: Patient's visual scanning and visual patricio appear intact. COMMUNICATION/BEHAVIOR: Patient appears cooperative and receptive to therapy. Patient also demonstrated interest in participating as a peer visitor for stroke patient's in the hospital, as well as appeared to demonstrate interest in participating in the stroke support group. EDUCATIONAL ASSESSMENT: Patient currently presents with high level cognitive impairment specifically related to decreased short-term memory. EDUCATION NEEDS: Patient would benefit from education in sensory precautions for decreased sensation in left upper extremity, home exercise program to maximize left upper extremity strength. Patient would also benefit from continued understanding of stroke. Patient would benefit from information in order to participate in a stroke support group, as well as to participate in the peer visitor program. LEARNING PREFERENCES: Due to patient's short-term memory impairments, patient would benefit from handouts as well as verbal instruction and repetition. Thank you very much for referring Shashank Hastings to outpatient Occupational Therapy. Please call with any questions at [phone]. Electronically signed on 12/22/2007 13:43 by MATTHIAS CUELLO MT: roberta Name: SHASHANK HASTINGS Account: [id number] : 1960 Visit Date: 12/21/2007 Sex: M Age: 47 Document: [id number] /SSBN WEAPONS EQUIPMENT OPERATOR documented in this encounter Plan of Treatment Not on filedocumented as of this encounter Visit Diagnoses Not on filedocumented in this encounter Care Teams Geriatric Nurse Practitioner Relationship Specialty Start Date End Date Kameron German MD PCP - General Family Practice 10/21/11 12/21/[address] [id number] documented as of this encounter
--- OUTSIDE RECORDS SUMMARY | 2022-10-06 11:31 | XMS_ITS | Encounter Summary ---
:1960 Author Organization [place] Address [address] [place] [address] Care Team Providers Name Role Phone Unavailable Primary Care Provider Unavailable Encounter Details Date Type Department Care Team Description 12/12/2007 Historic Results Physical Medicine and Johny, Rickey Mccollum MD [facility] [address] [place], [place] [address], [place] 1st Floor, Clinic [address] [place] [address] [place] [address] [phone] (Work) [phone] Social History Tobacco Use Types Packs/Day Years Used Date Smoking Tobacco: Never Assessed Sex Assigned at Date Recorded Not on file documented as of this encounter Plan of Treatment Not on filedocumented as of this encounter Procedures Procedure Name Priority Date/Time Associated Diagnosis Comme nts GLUCOSE BY METER Routine 12/12/2007 9:19 PM Resul ts for this NETWORK DIAGNOSTIC SUPPORT SPECIALIST procedure are i n the results section. documented in this encounter Results (ABNORMAL) Glucose by meter (12/12/2007 9:19 PM NETWORK DIAGNOSTIC SUPPORT SPECIALIST) P athologist Signature Glucose 129 (H) 60 - 99 MISYS mg/dL Comment: RN/Dr notified Specimen Anatomical Collection Method Collection Time Receive d Time (Source) Location / / Volume Laterality 12/12/2007 9:19 PM 8 NETWORK DIAGNOSTIC SUPPORT SPECIALIST 11:45 PM NETWORK DIAGNOSTIC SUPPORT SPECIALIST Tomy Mcclain MD [facility] [place] POCT Performing Organization Address City/State/ZIP Code Phon e Number MISYS documented in this encounter Visit Diagnoses Not on filedocumented in this encounter
--- OUTSIDE RECORDS SUMMARY | 2022-10-06 11:31 | XMS_ITS | Encounter Summary ---
:1960 Author Organization [place] Address [facility] [place] [address] Care Team Providers Name Role Phone Unavailable Primary Care Provider Unavailable Encounter Details Date Type Department Care Team Description 12/11/2007 Historic Notes INTERFACED REPORT Interface, Transcript onMD Social History Tobacco Use Types Packs/Day Years Used Date Smoking Tobacco: Never Assessed Sex Assigned at Date Recorded Not on file documented as of this encounter Progress Notes Interface, Rectification Printer - 02/08/2011 4:34 AM CDT Discharge Planning - Discharge From: [facility] - Patient Care Unit: 55 - U [facility] number after [phone] discharge: - Transportation: Private, Signatures Ruchi Franco ([facility])[Signed 11:52] Authored: Discharge Planning Interface, Rectification Printer - 02/08/2011 4:34 AM CDT Social Work Services [facility] has accepted pt. Spoke to pt's by phone. She agrees with plan. She will transport pt at 1100 tomorrow. P: [employer] [employer] will follow. Ruchi BONILLAW ext [phone] [Signature] Author:Ruchi Franco ([facility]) [Signed 11:55] Interface, Rectification Printer - 02/08/2011 4:33 AM CDT Progress Note - :: LATE ENTRY Stroke Nurse Visit: Met with patient, and daughters in ICU to review plan of care. Patient is currently receiving medications for agitation per ETOH protocol. Review patients risk factors of obesity, ETOH dyslipidemia and HTN although states patient has never been diagnosed with HTN prior to admission. Currently BP is 120/60. B/P fluctuates with agitation. Provided family with UAD binder and answered general questions about Carlo's recovery, treatment and causes of stroke. Will follow-up prior to DC. Signatures SHEMAR ALVAREZ (RN)[Signed 16:42] Authored: Progress Note documented in this encounter Plan of Treatment Not on filedocumented as of this encounter Visit Diagnoses Not on filedocumented in this encounter
--- OUTSIDE RECORDS SUMMARY | 2022-10-06 11:31 | XMS_ITS | Encounter Summary ---
:1960 Author Organization [place] Address [facility] [place] [address] Care Team Providers Name Role Phone Unavailable Primary Care Provider Unavailable Encounter Details Date Type Department Care Team Description 12/14/2007 Historic Notes INTERFACED REPORT Interface, Transcript onMD Social History Tobacco Use Types Packs/Day Years Used Date Smoking Tobacco: Never Assessed Sex Assigned at Date Recorded Not on file documented as of this encounter Progress Notes Interface, Wooden Fence Erector - 02/08/2011 4:24 AM CDT Nutrition Assessment Nutrition Assessment - Reason for assessment Admission screen Anthropometrics - Height: 68 - Admission weight: 98 Kg - BMI: 33 - IBW ([place] body weight): 70 kG - Adjusted weight: 77 kG Nutrition Prescription Nutrition Prescription - Nutrition Prescription: Low fat diet - Comments:: Diet was low sodium prior to transfer. Pt questioned why his menu choices are being altered. Appetite is good. Nutrition History Nutrition History - Nutrition history: No previous diet education regarding Cardiac or low fat, low cholesterol diet despite hx of hyperlipidemia. Labs/Medications Labs/Medications - Labs: Reviewed - Lab comments: 12/06 lipid panel: Chol 205, LDL 142 (elevated), HDL 34 (low) accuchecks: 129, 91, 100 - Medications: Reviewed - Medication comments: Folate, multivit/mineral supplement, Simvastatin, Reglan Physical Findings Physical Findings - Comments: Excess EtOH use per H&P; hyperlipidemia, mild HTN Estimated Needs Estimated Needs - Energy needs: ~2000 Kcal (25/kg adjusted wt) - Protein needs: ~77 gms (1 gm/kg) - Fluid needs: ~2.1 liters (BSA x 100 ml) Pt is able to meet his assessed needs independently at this time. Nutrition Diagnosis Nutrition Diagnosis - Nutrition diagnosis: Knowledge deficit r/t lack of education regarding heart healthy diet, AEB pt's prior eating habits and his questions regarding how to modify to minimize his risk factors. Interventions Interventions - Interventions: 1. Obtained brief overview of patient's eating habits and addressed his questions. 2. Explained that menus are being modified due to non-compliance with prescribed diet. Pt stated that he is willing to accept the parameters of his diet during his hospital stay. He is receptive to diet education regarding heart healthy eating. - Goals: 1. Pt will have improved understanding of preferred food choices for heart healty eating. - Follow-up: Provide diet education; allow patient to read and absorb information prior to discussion. Signatures Rachel Singh (RD, LD, CNSD)[Signed 16:26] Authored: Nutrition Assessment, Anthropometrics, Nutrition Prescription, Nutrition History, Labs/Medications, Physical Findings, Estimated Needs, Nutrition Diagnosis, Interventions documented in this encounter Plan of Treatment Not on filedocumented as of this encounter Visit Diagnoses Not on filedocumented in this encounter
--- OUTSIDE RECORDS SUMMARY | 2022-10-06 11:31 | XMS_ITS | Encounter Summary ---
:1960 Author Organization [place] Address [facility] [place] [address] Care Team Providers Name Role Phone Unavailable Primary Care Provider Unavailable Encounter Details Date Type Department Care Team Description 12/11/2007 Historic Notes INTERFACED REPORT Marylin Restrepo O T [facility] [address] [place], [place] [id number] (Wo rk) Social History Tobacco Use Types Packs/Day Years Used Date Smoking Tobacco: Never Assessed Sex Assigned at Date Recorded Not on file documented as of this encounter Progress Notes Marylin Restrepo - 02/08/2011 4:34 AM CDT Cognitive Assessment of [place] SUMMARY OF TEST: The Cognitive Assessment of [place] (CAM) is a standardized cognitive evaluation that is used to objectively and quantitatively assess a patient for the presence of cognitive deficits. The CAM is formatted to assess a patient?s cognitive skills in the areas of attention, memory/orientation, visual and auditory memory and sequencing, temporal awareness, following directions, simple math skills, concrete problem solving, foresight and planning ,and safety and judgment. The CAM was used during today?s evaluation to determine the patient?s areas of impairments and to direct further treatment in occupational therapy. RESULTS OF TESTING: No Deficits: Attention span, remote/recent memory; visual neglect; following Y/N, 1-3 step directions; immediate auditory and motor memory; temporal awareness; object ID/Matching; forward auditory memory; coin recognition; single digit math; abstract reasoning; simple problem solving and mental flexibility w/ problem solving. Mild Deficits: Motor recall; mental manipulation of $; Foresight and planning; safety and judgement. Moderate Deficits: Forward and backward visual memory; auditory recall; backward auditory memory. Severe Deficits: Multiple digit math, moderate and complex problem solving. [Signature] Author:MARYLIN RESTREPO (OT) [Signed 10:15] documented in this encounter Plan of Treatment Not on filedocumented as of this encounter Visit Diagnoses Not on filedocumented in this encounter
--- OUTSIDE RECORDS SUMMARY | 2022-10-06 11:31 | XMS_ITS | Encounter Summary ---
:1960 Author Organization [place] Address [address] [place] [address]. [place] [address] Care Team Providers Name Role Phone Unavailable Primary Care Provider Unavailable Encounter Details Date Type Department Care Team Description 12/07/2007 Historic Results INTERFACED REPORT Steph Linda MD [facility] [address] [place], [place] [phone] (Wo rk) Social History Tobacco Use Types Packs/Day Years Used Date Smoking Tobacco: Never Assessed Sex Assigned at Date Recorded Not on file documented as of this encounter Plan of Treatment Not on filedocumented as of this encounter Procedures Procedure Name Priority Date/Time Associated Diagnosis Comme nts GLUCOSE BY METER Routine 12/07/2007 5:07 PM Resul ts for this PELOTA MAKER procedure are i n the results section. GLUCOSE BY METER Routine 12/07/2007 11:58 AM Resu lts for this PELOTA MAKER procedure are i n the results section. GLUCOSE BY METER Routine 12/07/2007 8:20 AM Resul ts for this PELOTA MAKER procedure are i n the results section. BASIC METABOLIC Routine 12/07/2007 5:13 AM Result s for this PANEL PELOTA MAKER procedure are i n the results section. documented in this encounter Results (ABNORMAL) Glucose by meter (12/07/2007 5:07 PM PELOTA MAKER) P athologist Signature Glucose 118 (H) 60 - 99 MISYS mg/dL Specimen Anatomical Collection Method Collection Time Receive d Time (Source) Location / / Volume Laterality 12/07/2007 5:07 PM 8 8:52 PELOTA MAKER AM PELOTA MAKER Fredrick ZELAYA - [place] POCT Performing Organization Address [facility] Phon e Number MISYS (ABNORMAL) Glucose by meter (12/07/2007 11:58 AM PELOTA MAKER) P athologist Signature Glucose 121 (H) 60 - 99 MISYS mg/dL Specimen Anatomical Collection Method Collection Time Receive d Time (Source) Location / / Volume Laterality 12/07/2007 11:58 12/08/2007 8:52 AM PELOTA MAKER AM PELOTA MAKER Fredrick ZELAYA - [place] POCT Performing Organization Address [facility] Phon e Number MISYS (ABNORMAL) Glucose by meter (12/07/2007 8:20 AM PELOTA MAKER) P athologist Signature Glucose 119 (H) 60 - 99 MISYS mg/dL Specimen Anatomical Collection Method Collection Time Receive d Time (Source) Location / / Volume Laterality 12/07/2007 8:20 AM 8 8:52 PELOTA MAKER AM PELOTA MAKER Fredrick ZELAYA - [place] POCT Performing Organization Address [facility] Phon e Number MISYS (ABNORMAL) Basic metabolic panel (12/07/2007 5:13 AM PELOTA MAKER) P athologist Signature Sodium 147 (H) 133 - 144 MISYS mmol/L Potassium 4.2 3.4 - 5.3 MISYS mmol/L Chloride 114 (H) 94 - 109 MISYS mmol/L Carbon Dioxide 26 20 - 32 MISYS mmol/L Glucose 134 (H) 60 - 99 MISYS mg/dL Urea Nitrogen 6 5 - 24 MISYS mg/dL Creatinine 1.00 0.80 - MISYS 1.50 mg/dL GFR Estimate 84 >60 MISYS mL/min/1.7 m2 GFR Estimate If >90 >60 MISYS Black mL/min/1.7 m2 Calcium 8.7 8.5 - 10.4 MISYS mg/dL Anion Gap 6 6 - 17 MISYS mmol/L Specimen Anatomical Collection Method Collection Time Receive d Time (Source) Location / / Volume Laterality 12/07/2007 5:13 AM 8 PELOTA MAKER 10:05 AM PELOTA MAKER Nessa Dominguez MD LAB - BLOOD ORDERABLES Performing Organization Address [facility]/State/ZIP Code Phon e Number MISYS documented in this encounter Visit Diagnoses Not on filedocumented in this encounter
--- OUTSIDE RECORDS SUMMARY | 2022-10-06 11:31 | XMS_ITS | Encounter Summary ---
:1960 Author Organization [place] Address [facility] [place] [address] Care Team Providers Name Role Phone Unavailable Primary Care Provider Unavailable Encounter Details Date Type Department Care Team Description 12/12/2007 Historic Notes INTERFACED REPORT Interface, Transcript onMD Social History Tobacco Use Types Packs/Day Years Used Date Smoking Tobacco: Never Assessed Sex Assigned at Date Recorded Not on file documented as of this encounter Progress Notes Interface, Grain And Yeast Plants Supervisor - 02/08/2011 4:32 AM CDT Progress Note - :: Pt was A&O X 3, VSS, lung sounds clear, bowel sounds active, neurologically intact except for head and eye pain, more pain with eye movement. Received ultram and cold application. Up independently. Spouse in room with patient. will continue to monitor. Signatures Alejandro Lancaster)[Signed 06:48] Authored: Progress Note documented in this encounter Plan of Treatment Not on filedocumented as of this encounter Visit Diagnoses Not on filedocumented in this encounter
--- OUTSIDE RECORDS SUMMARY | 2022-10-06 11:31 | XMS_ITS | Encounter Summary ---
:1960 Author Organization [place] Address [facility] [place] [address] Care Team Providers Name Role Phone Unavailable Primary Care Provider Unavailable Encounter Details Date Type Department Care Team Description 12/15/2007 Historic Notes INTERFACED REPORT Interface, Transcript onMD Social History Tobacco Use Types Packs/Day Years Used Date Smoking Tobacco: Never Assessed Sex Assigned at Date Recorded Not on file documented as of this encounter Progress Notes Interface, Parole Board Member - 02/08/2011 4:20 AM CDT Pt was provided with multiple educational pamphlets regarding heart healthy eating. He and his were appreciative of the information provided and were reviewing the literature. Pt does like to cook. He will use the information to evaluate his own eating habits and make changes in his customary diet to help minimize CAD risk factors. [Signature] Author:Rachel Singh (RD, LD, CNSD) [Signed 18:00] documented in this encounter Plan of Treatment Not on filedocumented as of this encounter Visit Diagnoses Not on filedocumented in this encounter
--- OUTSIDE RECORDS SUMMARY | 2022-10-06 11:31 | XMS_ITS | Encounter Summary ---
:1960 Author Organization [place] Address [address] [place] [address] Care Team Providers Name Role Phone Unavailable Primary Care Provider Unavailable Encounter Details Date Type Department Care Team Description 12/16/2007 Historic Results Physical Medicine and Johny, Rickye Mccollum MD [facility] [address] [place], [place] [address], [place] 1st Floor, Clinic [address] [place] [address] [place] [address] [phone] (Work) [phone] Social History Tobacco Use Types Packs/Day Years Used Date Smoking Tobacco: Never Assessed Sex Assigned at Date Recorded Not on file documented as of this encounter Plan of Treatment Not on filedocumented as of this encounter Procedures Procedure Name Priority Date/Time Associated Diagnosis Comme nts GLUCOSE BY METER Routine 12/16/2007 4:54 PM Resul ts for this ENGRAVER TENDER procedure are i n the results section. GLUCOSE BY METER Routine 12/16/2007 8:20 AM Resul ts for this ENGRAVER TENDER procedure are i n the results section. documented in this encounter Results Glucose by meter (12/16/2007 4:54 PM ENGRAVER TENDER) P athologist Signature Glucose 92 60 - 99 MISYS mg/dL Comment: RN/Dr notified Specimen Anatomical Collection Method Collection Time Receive d Time (Source) Location / / Volume Laterality 12/16/2007 4:54 PM 8 ENGRAVER TENDER 12:15 AM ENGRAVER TENDER Tomy Mcclain MD [facility] POCT Performing Organization Address City/State/ZIP Code Phon e Number MISYS (ABNORMAL) Glucose by meter (12/16/2007 8:20 AM ENGRAVER TENDER) P athologist Signature Glucose 143 (H) 60 - 99 MISYS mg/dL Specimen Anatomical Collection Method Collection Time Receive d Time (Source) Location / / Volume Laterality 12/16/2007 8:20 AM 8 ENGRAVER TENDER 12:15 AM ENGRAVER TENDER Tomy Mcclain MD [facility] POCT Performing Organization Address City/State/ZIP Code Phon e Number MISYS documented in this encounter Visit Diagnoses Not on filedocumented in this encounter
--- OUTSIDE RECORDS SUMMARY | 2022-10-06 11:31 | XMS_ITS | Encounter Summary ---
:1960 Author Organization [place] Address [address] [place] [address]. [place] [address] Care Team Providers Name Role Phone Unavailable Primary Care Provider Unavailable Encounter Details Date Type Department Care Team Description 12/08/2007 Historic Results INTERFACED REPORT Steph Linda MD [facility] [address] [place], [place] [phone] (Wo rk) Social History Tobacco Use Types Packs/Day Years Used Date Smoking Tobacco: Never Assessed Sex Assigned at Date Recorded Not on file documented as of this encounter Plan of Treatment Not on filedocumented as of this encounter Procedures Procedure Name Priority Date/Time Associated Diagnosis Comme nts BASIC METABOLIC Routine 12/08/2007 4:43 AM Result s for this PANEL LINK TRAINER MAINTENANCE WORKER procedure are i n the results section. GLUCOSE BY METER Routine 12/08/2007 12:05 AM Resu lts for this LINK TRAINER MAINTENANCE WORKER procedure are i n the results section. documented in this encounter Results (ABNORMAL) Basic metabolic panel (12/08/2007 4:43 AM LINK TRAINER MAINTENANCE WORKER) P athologist Signature Sodium 147 (H) 133 - 144 MISYS mmol/L Potassium 4.9 3.4 - 5.3 MISYS mmol/L Chloride 112 (H) 94 - 109 MISYS mmol/L Carbon Dioxide 27 20 - 32 MISYS mmol/L Glucose 121 (H) 60 - 99 MISYS mg/dL Urea Nitrogen 5 5 - 24 MISYS mg/dL Creatinine 0.98 0.80 - MISYS 1.50 mg/dL GFR Estimate 86 >60 MISYS mL/min/1.7 m2 GFR Estimate If >90 >60 MISYS Black mL/min/1.7 m2 Calcium 9.1 8.5 - 10.4 MISYS mg/dL Anion Gap 9 6 - 17 MISYS mmol/L Specimen Anatomical Collection Method Collection Time Receive d Time (Source) Location / / Volume Laterality 12/08/2007 4:43 AM 8 8:46 LINK TRAINER MAINTENANCE WORKER AM LINK TRAINER MAINTENANCE WORKER Nessa Dominguez MD LAB - BLOOD ORDERABLES Performing Organization Address City/State/ZIP Code Phon e Number MISYS (ABNORMAL) Glucose by meter (12/08/2007 12:05 AM LINK TRAINER MAINTENANCE WORKER) P athologist Signature Glucose 132 (H) 60 - 99 MISYS mg/dL Comment: RN/Dr notified Specimen Anatomical Collection Method Collection Time Receive d Time (Source) Location / / Volume Laterality 12/08/2007 12:05 12/08/2007 8:52 AM LINK TRAINER MAINTENANCE WORKER AM LINK TRAINER MAINTENANCE WORKER Fredrick Linda MD LAB - BEAKER POCT Performing Organization Address City/State/ZIP Code Phon e Number MISYS documented in this encounter Visit Diagnoses Not on filedocumented in this encounter
--- OUTSIDE RECORDS SUMMARY | 2022-10-06 11:31 | XMS_ITS | Encounter Summary ---
:1960 Author Organization [place] Address [address] [place] [address]. [place] [address] Care Team Providers Name Role Phone Unavailable Primary Care Provider Unavailable Encounter Details Date Type Department Care Team Description 12/06/2007 Historic Notes INTERFACED REPORT George Guzman , CALLUM CONTRERAS TEEN [address] [address] (Wo rk) Social History Tobacco Use Types Packs/Day Years Used Date Smoking Tobacco: Never Assessed Sex Assigned at Date Recorded Not on file documented as of this encounter Progress Notes George Guzman SLP - 02/08/2011 4:49 AM CDT Swallowing Compensations General Information - Type of Note Initial Evaluation - Patient Profile Review Yes - Patient/Family Goals PT would like to eat and drink. - Swallowing Evaluation Bedside swallow evaluation; Functional Assessment Score (FAS): 7 = No Impairment 6 = Minimal Impairment 5 = Mild Impairment 4 = Mild - Moderate Impairment 3 = Moderate Impairment 2 = Moderate - Severe Impairment 1 = Severe Impairment 0 = Not Tested (See Comment) - Comments PT admitted to [facility] on 12/05 with altered mental status and slurred speech. PT with acute CVI and left sided weakness. PT's PMH is significant for HTN, hypercholesterolemia, GERD, and esophageal dilatation. Oral Motor Exam Oral Motor Exam - Oral Motor Exam WNL - Intelligibility Estimate % accuracy of intelligibility, 100 - Dentition Own - Ability to handle Patient able to handle secretions secretions Labial Function Labial Function - Labial protrusion Normal - Labial retraction Decreased strength; Decreased ROM; Left sided - Labial Seal Normal Labial seal/closure - Labial coordination Normal Labial coordination - Comments FAS = 6 Lingual Function Lingual Function - Lingual function at rest Normal - Lingual protrusion Normal - Lingual lateral left Normal - Lingual lateral right Normal - Lingual anterior elevation Normal - Comments FAS = 7 Laryngeal Function Laryngeal Function - Laryngeal function Volitional; Automatic; Throat clear; Cough; Able to palpate elevation on dry swallow - Voice characteristics Within normal limits (WNL) Trial Oral Feeding Trial Oral Feedings - Trial oral material Applesauce; Thin liquids; Hard, masticated food; Puree; Water; Ice chips - Amount Amount:, 2 ice chips, 3 oz water, 3 oz milk, 3 tsp applesauce, 1/2 mikhail cracker. - Cough No cough with feeding - Clear throat Pt did not clear throat - Change in vocal quality There was no change in vocal quality Swallowing Compensations Swallowing Compensations - Swallowing Compensations Alternate viscosity of consistencies - Results No difficulties noted Impression Impression - Skilled Criteria for Yes Therapy Intervention Met - Assessment PT appears to have functional swallow for po intake without any overt s/sx of aspiration. PT was able to adequately masticate and manipulate each bolus texture trialed. PT was unable to raise HOB secondary to having femoral line removed, so minimal amounts of po trialed at bedside. PT reports eating minimal solid food within the last 1.5 years secondary to GI issues. PT prefers liquids. - Swallowing Recommend regular diet with thin liquids, Precautions/Recommendations as PT tolerates different foods. PT should be sitting upright in bed/chair for all po intake. Only sips of water while PT is required to lay flat this am. - Rehabilitation Potential Good, to achieve stated therapy goals - Demonstrates need for OT; PT referral to another service - Predicted Duration of 2-3 days for swallowing goals Therapy - Predicted Frequency of 1-2x/day Therapy - Discharge Destination Rehabilitation facility; Likely TCU, pending results of cognitive-linguistic evaluation - Risks and Benefits of Yes Treatment have been explained. - Patient, family and/or Yes staff in agreement with Plan of Care - Comments Dysphagia Outcome and Severity Score (MARY) rating: Level 6 - Within functional limits/modified independence Signatures GEORGE CHAVEZ (Speech Pathologist)[Signed 10:26] Authored: Swallowing Compensations, Oral Motor Exam, Labial Function, Lingual Function, Laryngeal Function, Trial Oral Feeding, Swallowing Compensations, Impression documented in this encounter Plan of Treatment Not on filedocumented as of this encounter Visit Diagnoses Not on filedocumented in this encounter
--- OUTSIDE RECORDS SUMMARY | 2022-10-06 11:31 | XMS_ITS | Encounter Summary ---
:1960 Author Organization [facility] Address [address] [place] [address]. [place] [address] Care Team Providers Name Role Phone Unavailable Primary Care Provider Unavailable Encounter Details Date Type Department Care Team Description 12/09/2007 Historic Notes INTERFACED REPORT Interface, Transcript on, Social History Tobacco Use Types Packs/Day Years Used Date Smoking Tobacco: Never Assessed Sex Assigned at Date Recorded Not on file documented as of this encounter Progress Notes Interface, [employer] - 02/08/2011 4:40 AM CDT Notification - Notified Person:: MD - Notified Persons Name: Farzana - Notification Time:: 03:00 - Notification Interaction:: Talked with Physician - Purpose of notification:: Change in condition - Orders received?: Yes - Comments:: 504-2; Shashank Hastings; developed a 9/10 between eyes headache at 0215, tylenol given, 7/10 headache at [address]. [address] scan for am and neuro and vs checks every 2 hours. Signatures JAMESON MARTINO (RN)[Signed 04:17] Authored: Notification Interface, [employer] - 02/08/2011 4:40 AM CDT Progress Note - :: A/O x3. Left sided slight weakness. Left arm drift; left leg drift. Slight left sided field cut. Left facial droop. Muscles in arms twitching. ETOH protocol scoring; scores of 4,4, and 2 with ativan coverage. Episodes of lethargy. Sleeping well, but with awakening very anxious. Headache at 2400 3/10 pain; 0200 9/10 pain; 0250 7/10 pain; MD notified. Orders given: see orders. sleeping in lounge; notified when MD called and orders given. LARRY 5/10 at 0500. Bi-pap on at 0230 by respiratory. Up with one assist to BR; very unsteady. High fluid intake: 2640 ml from water and sprite zero. Voiding in adequate amts. Signatures JAMESON MARTINO (DESTIN)[Signed 05:30] Authored: Progress Note documented in this encounter Plan of Treatment Not on filedocumented as of this encounter Visit Diagnoses Not on filedocumented in this encounter
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
--- OUTSIDE RECORDS SUMMARY | 2022-10-06 11:31 | XMS_ITS | Encounter Summary ---
:1960 Author Organization [facility] Address [address] [place] [address]. [place] [address] Care Team Providers Name Role Phone Unavailable Primary Care Provider Unavailable Encounter Details Date Type Department Care Team Description 12/12/2007 Historic Notes INTERFACED REPORT Shantell Foster, PT [facility] [address] [place] [address] (Wo rk) Social History Tobacco Use Types Packs/Day Years Used Date Smoking Tobacco: Never Assessed Sex Assigned at Date Recorded Not on file documented as of this encounter Progress Notes Shantell Foster, PT - 02/08/2011 4:32 AM CDT PHYSICAL THERAPY LOU BALANCE SCALE Sit To Stand Please stand up. Try not to use your hands for support (includes hands on legs for support). 4-Able, no hands, stabilizes independently 3-Able, uses hands 2-Able, uses hands, several times 1-Minimal assist to stand or stabilize 0-Moderate or maximal assist to stand Score:4 Standing Unsupported Stand for two minutes without holding. 4-Stands safely, 2 minutes 3-Stands 2 minutes with supervision 2-Stands 30 seconds unsupported 1-Several tries to stand 30 seconds unsupported 0-Unable to stand 30 seconds unassisted Score:4 Sitting Unsupported Instructions: Sit with arms folded for two minutes. 4-Able, safely, 2 minutes 3-Able, 2 minutes with supervision 2-Able, 30 seconds 1-Able, 10 seconds 0-Unable without support 10 seconds Score:4 Stand to Sit Instructions: Please sit down. 4-Safe with minimal use of hands 3-Controls descent using hands 2-Uses back of legs on chair to control descent 1-Independent with uncontrolled descent 0-Needs assist to sit Score:3 Transfers Instructions: Please move from chair to bed and back again. One surface with arm rest and one without arm rest. 4-Safe with minor use of hands 3-Safe with definite use of hands 2-Able with verbal cueing and/or supervision 1-Needs one person assist 0-Two people assist or supervision for safety Score:4 Standing With Eyes Closed Instructions: Close your eyes and stand still for ten seconds. 4-Able, 10 seconds safely 3-Able, 10 seconds with supervision 1-Unable to keep eyes closed 3 seconds, but stays steady 0-Assist needed to prevent fall Score:3 Standing Unsupported, Feet Together Instructions: Place your feet together and stand without looking. 4-Places feet independently, stand without holding 3-Places feet independently, stand 1 minute with supervision 2-Places feet independently, unable to hold 30 seconds 1-Assist to maintain position, stands 15 seconds 0-Assist to maintain position, unable to hold 15 seconds Score:3 Reach Forward With Outstretched Arm Instructions: Lift [...] needs supervision 0-Assist needed to prevent fall Score:3 Retrieve Object from Floor Instructions: outside plant supervisor the shoe which is placed in front of the feet about two feet. 4-Able, safely and easily 3-Able with supervision 2-Unable, reaches 1-2 inches from object and keeps balance independently 1-Unable, needs supervision while trying 0-Unable to try or assist needed to prevent fall Score:3 Turning To Look Behind Instructions: Turn to look behind you over toward left shoulder. Repeat to the right. 4-Looks both sides, good weight shift 3-Looks one side only, other side less weight shift 2-Turns sideways only, maintains balance 1-Supervision needed when turning 0-Assist needed to prevent fall Score:4 Turn 360 degrees Instructions: Turn around in a full [place]. Pause for one minute, then turn a full [place] in the other direction. 4-Safe in less than 4 seconds each side 3-Safely one side only less than 4 seconds 2-Safe but slow 1-Needs close supervision or verbal cueing 0-Needs assist while turning Score:2 Placing Alternate Foot On Stool (4-6 inches) [...] to prevent fall or unable to try Score:4 Unsupported Tandem Stand (Demonstrate to Subject) Instructions: [...] seconds 0-Loses balance while stepping or standing Score:3 One Leg Stand Instructions: Stand on one leg as long as you can without holding. 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 SBA with mobility - Continued Therapy Yes Recommended - Rationale/ Recommendations To progress independence with functional mobility. Signatures Shantell Del Cid (PT)[Signed 09:22] Authored: Discharge Summary documented in this encounter Plan of Treatment Not on filedocumented as of this encounter Visit Diagnoses Not on filedocumented in this encounter
--- OUTSIDE RECORDS SUMMARY | 2022-10-06 11:31 | XMS_ITS | Encounter Summary ---
:1960 Author Organization [facility] Address [facility] hospital[facility] [place] [address] Care Team Providers Name Role Phone Unavailable Primary Care Provider Unavailable Encounter Details Date Type Department Care Team Description 12/09/2007 Historic Results [facility] [address] [facility] [address] [facility] [place] [facility] [phone] CHRISTIANO WATSON [facility] [phone] (Wo rk) Social History Tobacco Use Types Packs/Day Years Used Date Smoking Tobacco: Never Assessed Sex Assigned at Date Recorded Not on file documented as of this encounter Plan of Treatment Not on filedocumented as of this encounter Procedures Procedure Name Priority Date/Time Associated Diagnosis Comme nts BASIC METABOLIC Routine 12/09/2007 8:05 AM Result s for this PANEL SOFTWARE ENGINE[employer] procedure are i n the results section. documented in this encounter Results (ABNORMAL) Basic metabolic panel (12/09/2007 8:05 AM SOFTWARE ENGINE[employer]PLICATION[employer]) P athologist Signature Sodium 143 133 - 144 MISYS mmol/L Potassium 3.9 3.4 - 5.3 MISYS mmol/L Chloride 105 94 - 109 MISYS mmol/L Carbon Dioxide 29 20 - 32 MISYS mmol/L Glucose 105 (H) 60 - 99 MISYS mg/dL Urea Nitrogen 7 5 - 24 MISYS mg/dL Creatinine 1.11 0.80 - MISYS 1.50 mg/dL GFR Estimate 75 >60 MISYS mL/min/1.7 m2 GFR Estimate If >90 >60 MISYS Black mL/min/1.7 m2 Calcium 9.5 8.5 - 10.4 MISYS mg/dL Anion Gap 9 6 - 17 MISYS mmol/L Specimen (Source) Anatomical Collection Method Collection Time Re ceived Time Location / / Volume Laterality 12/09/2007 8:05 AM 8 SOFTWARE ENG[employer] Nitin Katz MD LAB - BLOOD ORDERABLES Performing Organization Address City/State/ZIP Code Phon e Number MISYS documented in this encounter Visit Diagnoses Not on filedocumented in this encounter
--- OUTSIDE RECORDS SUMMARY | 2022-10-06 11:31 | XMS_ITS | Encounter Summary ---
:1960 Author Organization [facility] Address [address] [place] [address]. [place] [address] Care Team Providers Name Role Phone Unavailable Primary Care Provider Unavailable Encounter Details Date Type Department Care Team Description 12/12/2007 Discharge Summary Tomy Brown MD (Hot Stick Worker) [address] [facility] [id number] [address] (Wo rk) Social History Tobacco Use Types Packs/Day Years Used Date Smoking Tobacco: Never Assessed Sex Assigned at Date Recorded Not on file documented as of this encounter Progress Notes Tomy Brown - 12/23/2007 6:37 PM INTERCEPTOR OPERATOR FINAL DISCHARGE DIAGNOSES: 1. Ischemic stroke right nondominant M2 branch of MCA. 2. Post-TPA hemorrhage. 3. Impaired cognition, mobility and activities of daily living. 4. Alcohol dependence. 5. Hyperlipidemia. 6. Hypertension. 7. Sleep apnea on BiPAP. 8. 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 HISTORY OF PRESENT ILLNESS: Shashank Hastings is a 47-year-old gentleman who had a right M2 branchmiddle cerebral artery ischemic stroke with left-sided symptoms and dysarthria. He presented quicklyto emergency department and received a TPA and had a small hemorrhage following. Because of his medical condition as well as impaired function, he was admitted to the acute rehab unit 12/12/2007 for comprehensive rehabilitation cares. HOSPITAL COURSE: PROBLEM #1: Shashank made nice gains during his stay primarily in the balance and ADL standpoint. Just prior to his admission, had a Osborn Balance score of 38/56, which quickly improved and he was independent with his ambulation without assistive device. He does have some mild higher level balance deficits, but was able to walk independently greater than 200 feet. Still benefits from a railing for stability on stairs, though was able to do full flight x4. He does have some tightness in bilateral hamstrings in particular piriformis and physical therapy also worked on this range of motion program. He may benefit from some ongoing supervision by physical therapy for this piriformis type pain, but not likely for long period of time. The most significant ongoing deficits are his cognition. Unfortunately, these improved nicely and are at the mild level. He continues to have some deficits particularly with divided attention, short-term recall, problem solving, reasoning and attention. He does have good insight into these deficits and a fall into the mild range. He will benefit from ongoing speech language pathology as an outpatient. He does have good insight and these deficits making him unsafe with his decisions. PROBLEM #2: Activities of daily living improved. They were only mildly impaired at the beginning related to balance. At first required, raised toilet seat and grab bars for safe toileting and supervision for bathing, though by discharge fully independent without assistive devices for all ADLs including simple stove top cooking and recommended to have some mild oversight if doing more complex cookingtasks. PROBLEM #3: Alcoholism was discussed several times and he is presenting as very sincere and adamantto abstain from all future drinking. He does decline participation in any formal treatment program. His is supportive of his ongoing abstinence. PROBLEM #4: Other general medical issues remained stable during his rehabilitation stay. Compared to pre-stroke, his statin medication dose was doubled as an admission LDL while on simvastatin 142. Hehad not been on blood pressure medication previously, although benefited from low dose metoprolol 25mg twice daily. There was some mild hyperglycemia, though not treated with any medications. This will be deferred to an outpatient basis and likely was related to his internal stress steroids response.I continued on BiPAP for sleep apnea. He is on daily aspirin for antiplatelet and secondary seizure prevention. Prior to transfer to the acute rehabilitation unit, he had been experiencing anxiety and was taking quetiapine which did not need this during his stay. Similarly, had some difficulty with early satiety and started on Reglan, but this was discontinued during this rehab stay. PROBLEM #5: Psychosocial disposition: He has a very supportive has a very supportive and he is returning to home with her check in supervision. He previously was working full-time at [employer] on [employer] and will be off work while completing his therapies. From there, we will discuss a follow up with me, his function and work ability and no recommending no driving for now. PROBLEM #6: Did have headache during his stay, though improved incrementally. It is likely related to his post-ischemic bleed. He was treated with tramadol with partial relief. Similarly, partial relief with acetaminophen. DISCHARGE MEDICATIONS: 1. Folic acid 1 mg daily x1 month, then stop related to prior alcohol use. 2. Metoprolol 25 mg twice daily for hypertension. 3. Multivitamin with minerals recommended any routine [id number] version daily. 4. Nexium 40 mg daily was taking Protonix on inpatient, but either would be equivalent. 5. Senokot-S 2 tablets each day at bedtime for constipation may stop when bowels normalize. 6. Simvastatin 80 mg daily for cholesterol. 7. Aspirin 81 mg daily for platelet inhibition. 8. Tramadol 50 mg q.6h. p.r.n. headache. 9. Acetaminophen [id number]-shw-yyitvao 650 mg up to 1000 mg q.i.d. as alternate for headache. DISCHARGE PHYSICAL EXAMINATION: GENERAL: Alert, very pleasant gentleman, good historian, no dysarthria, expressive or receptive language deficits. NEUROLOGIC: Strength is now symmetric, 5/5 bilateral upper and lower extremities. No sensory deficits. Balance is stable without assisted device. HEART: Regular rate and rhythm without murmur. LUNGS: Clear to auscultation. FOLLOWUP APPOINTMENTS: With myself, Dr. Tomy Brown [facility] scheduled on01/24/2008 at 10:30 a.m. and with primary care provider Dr. German, [facility]. Electronically signed on 12/23/2007 18:36 by TOMY BROWN MD MT: JOHN Name: SHASHANK HASTINGS Account: [id number] : 1960 Admit Date: Discharge Date: 12/17/2007 Document: [id number] cc: Kameron German MD RCEPTOR OPERATOR documented in this encounter Plan of Treatment Not on filedocumented as of this encounter Visit Diagnoses Not on filedocumented in this encounter
--- OUTSIDE RECORDS SUMMARY | 2022-10-06 11:31 | XMS_ITS | Encounter Summary ---
:1960 Author Organization [place] Address [facility] [place] [address] Care Team Providers Name Role Phone Unavailable Primary Care Provider Unavailable Encounter Details Date Type Department Care Team Description 12/08/2007 Historic Notes INTERFACED REPORT Interface, Transcript onMD Social History Tobacco Use Types Packs/Day Years Used Date Smoking Tobacco: Never Assessed Sex Assigned at Date Recorded Not on file documented as of this encounter Progress Notes Interface, Bobbin Handler - 02/08/2011 4:43 AM CDT Progress Note - :: pt has remained neurologically intact.Pt needs 1 person assist for ambulation to br and continues to have a very slight facial droop.Pt has = strength in extremities.Pt is slightly impulsive and did not sleep much only occassionally dozedHead ct completed this am.Pt has had a bowel movement but flushed it before staff could check it.Pt has had 1200cc documented U/O but has urinatd while on toilet and that could not be counted.Pt has excessive thirst.Continuing to monitor. GLENNA Alamo (DESTIN)[Signed 06:59] Authored: Progress Note Interface, Bobbin Handler - 02/08/2011 4:43 AM CDT General Information General Information - Type of Note Initial Evaluation - Patient Profile Review Yes - Onset Date - Referring Physician Dr. 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 MRI: acute right MCA occlusion with subarachnoid blood from R sylvian fissure over R frontal and parietal lobes. Intra-arterial t-PA received. See pt. profile for PMH. - Treatment Diagnosis Decreased ADL independence - Precautions/Limitations Fall precautions - Weight Bearing Status No weight bearing restrictions - Observations Up in chair upon therapist arrival. , Domonique, present for OT session Cognitive Cognitive Status - Orientation Oriented to person, month, year, not time - Level of Consciousness Alert - Follows Commands and 100% of the time Answers Questions - Memory Short term impaired - Personal Safety/Judgement Impaired, Mildly impulsive - Sequencing Impaired - Comments Short Blessed Test score = 15 suggesting moderate cognitive impairment Visual Perception Visual Perception - Visual Perception: Intact to finger count - Tracking: C/O increased headache when tracking/scanning to L - Neglect: Pt. reported episode of not recognizing his L hand 1-2 weeks prior to admit - Field Cuts: None - Muscle Balance: Normal Pain Presence of pain - Do you have pain now Yes (See Assessment and Intervention Flowsheet) Sensation (Assessment) Light Touch - Light touch: WNL - LUE: WNL Proprioception - LUE: Mild impairment Comments: Pt. slow to respond to LUE position changes Muscle Tone Tone - Tone Tone was appropriate in all areas Range of Motion ROM - ROM ROM was appropriate in all areas Strength (Assessment) Comments: BUE strength assessment deferred due to headache Fine Motor Coordination Finger Opposition - Finger Opposition: Normal performance - Left: Normal performance Finger to Nose - Finger to Nose: Normal performance - Left: Minimal impairment ADL: Prior Level of Functioning Self Care: Prior Level of Functioning - Comments: Pt. independent with all IADL ADL: Current Level of Functioning Self Care: Current Level of Functioning - Eating: Set-up or supervision only - Grooming: Set-up or supervision only - Comments: Most ADL deferred due to headache Functional Performance Transfer - Transfer: Stand by assist - Stand to Sit: Stand by assist Balance - Standing: Static: Stand by assist Treatment Plan Treatments - Treatments Visual Perception, ADL Retraining, Neuromuscular Inhibition/Facilitation, Functional Endurance, Transfer Training, Cognition Prognosis/Impression Impression - Skilled Criteria for Yes Therapy Intervention Met - Assessment Patient is a 47 year old male admitted with R MCA CVI. Deficits in L strength and coordination, headache, cognition and possible perceptual deficits impair ADL independence. OT appropriate to advance/modify ADL to increase independence and safety. 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 - Patient, family and/or Yes staff in agreement with Plan of Care Signatures Ivon Gutiérrez (Therapist)[Signed 10:40] Authored: General Information, Cognitive, Visual Perception, Pain, Sensation (Assessment), Muscle Tone, Range of Motion, Strength (Assessment), Fine Motor Coordination, ADL: Prior Level of Functioning,ADL: Current Level of Functioning , Functional Performance, Treatment Plan, Prognosis/Impression Interface, Bobbin Handler - 02/08/2011 4:42 AM CDT SW: D: Noted that PT is recommending acute rehab. for pt. upon discharge. Met with pt. and spouse to provide written information on Acute and list of other acute rehab. facilities. Pt. and requested a referral to Acute which was done. P: Will follow pt. for future transfer to acute rehab. when pt. is medically ready to transfer. Lian Loya [facility], [phone] [Signature] Author:MOSHE LOYA ([facility]) [Signed 11:25] Interface, Bobbin Handler - 02/08/2011 4:42 AM CDT General Information General Information - Patient Profile Review Yes - Onset Date - Referring Physician Dr. Lassig. ROADS - Patient/Family Goals PT wants to return to work - History of Present Problem PT admitted to [facility] on 12/05 with altered mental status and slurred speech. PT with acute CVI and left sided weakness. PT's PMH is significant for HTN, hypercholesterolemia, GERD, and esophageal dilatation. - Treatment Diagnosis cognitive-linguistic disorder - Precautions/Limitations Swallowing precautions - Handedness Right - Driving status Currently driving - Managing own finances No, does per PT. Behavior - Behavioral Observations Pleasant and Cooperative, Lethargic Oral Motor Sensory Function Oral Motor Sensory Function - Completed on Swallow (see [facility] Clinical Bedside Swallow Evaluation Evaluation) Speech Functional Assessment Scale (Speech) - Functional Assessment Scale 6 = Minimal Impairment (Speech) - Comments (Speech) Mild dysarthria noted. Language: Auditory Comprehension (understanding of spoken language) Auditory Comprehension - Tests were administered at Moderate (routine daily activities), the following levels Complex (vocation/community/social activities) - 4. Two Step Commands (out 4 of 5 total) - 5. Yes/No Sentence and 5 Simple Paragraph; [place] Diagnostic Aphasia Exam 3 short (out of 6 total) - 7. Paragraph; Discourse 7 Comprehension Test (out of 8 total) - Functional Assessment Scale 6 = Minimal Impairment (Auditory Comprehension) - Comments (Auditory PT with decreased attention to detail, but Comprehension) overall AC felt to be WFL for his needs. Language: Verbal Expression (use of spoken language to express information) Verbal Expression - Tests were administered at Basic (rote activities), Moderate (routine the following levels daily activities), Complex (vocation/community/social activities) - 2. Phrase/Sentence 10 Completion (out of 10 total) - 3. Responsive Naming; 20 [place] Diagnostic Aphasia Exam 3 (out of 20 total) - 4. Biographic Information 3 (out of 3 total) - 7. Generate Sentences; 6 [place] Test for Differential Diagnosis Of Aphasia (out of 6 total) - 8b. Conversation; [place] 4 Diagnostic Dysphagia Exam rating (out of 5 total) - 10. Define Words; [place] 7 Test for Differential Diagnosis Of Aphasia (out of 10 total) - Functional Assessment Scale 5 = Mild Impairment (Verbal Expression) - Comments (Verbal PT noted to have mild word finding deficit Expression) in conversation and also to be mildly tangential. Language: Reading Comprehension (understanding of written language) Reading Comprehension - Functional Assessment Scale 0 = Not tested (see comment) (Reading Comprehension) - Comments (Reading PT does not have reading glasses available Comprehension) Language: Written Expression (use of writing to express information) Written Expression - Tests were administered at Basic (rote activities), Moderate (routine the following levels daily activities) - 1. Mechanics of Writing; 4 [place] Diagnostic Aphasia Exam (out of 5 total) - 4. Generate Sentences; 2 [place] Test for Differential Diagnosis Of Aphasia (out of 6 total) - Functional Assessment Scale 3 = Moderate Impairment (Written Expression) - Comments (Written PT did not have reading glasses available Expression) and misread 2 of the words, used phrases for 3 of the targets and one sentence that was not grammatical. PT's address was incorrect by one number per PT's spouse. Pragmatics (the social or functional use of a language) Pragmatics - Functional Assessment Scale 4 = Mild to Moderate Impairment (Pragmatics) - Comments (Pragmatics) PT was very sleepy and had a flat affect during assessment Cognition: Reasoning (drawing conclusions from known or assumed facts, e.g., prioritizing a scheduleto complete errands) Reasoning - Tests were administered at Moderate (routine daily activities) the following levels - 4. Practical Problem 3 Solving (out of 4 total) - Functional Assessment Scale 5 = Mild Impairment (Cognition: Reasoning) - Comments (Cognition: PT was able to verbally sequence making a Reasoning) sandwich. Gestures were also added to ensure listener comprehension Cognition: Executive Function (the ability to engage in independent, purposeful and self-direct behavior, e.g., planning, organizing and executing a job search) Executive Function - Deficits in Executive Insight/awareness, Function Self-monitoring/self-correction, Mental flexibility Prognosis/Impression Impression - Skilled Criteria for Yes Therapy Intervention Met - Assessment PT exhibits mild to moderate cognitive-linguistic deficits secondary to CVI with lethargy which results in egocentrism, decreased attention and impulsivity. PT feels he is doing beeter than he is-decreased insight. - Rehabilitation Potential Good, to achieve stated therapy goals - Demonstrates need for all services are involved referral to another service - Predicted Duration of 5 days Therapy - Predicted Frequency of 2x/day as able Therapy - Discharge Destination Rehabilitation facility; acute rehab - Risks and Benefits of Yes Treatment have been explained. - Patient, family and/or Yes staff in agreement with Plan of Care - Diagnostic Statement FAS 4 Signatures Vesta Camacho (Speech Pathologist)[Signed 09:51] Authored: General Information, Language: Verbal Expression (use of spoken language to express information), Language: Reading Comprehension (understanding of written language), Language: Written Expression (use of writing to express information), Pragmatics (the social or functional use of a language), Cognition: Reasoning (drawing conclusions from known or assumed facts, e.g., prioritizing a schedule to complete errands), Cognition: Executive Function (the ability to engage in independent, purposeful and self-direct behavior, e.g., planning, organizing and executing a job search), Prognosis/Impression Reginald, Abdulaziz (Speech Pathologist)[Signed 13:41] Authored: General Information, Oral Motor Sensory Function, Speech, Language: Auditory Comprehension(understanding of spoken language), Language: Verbal Expression (use of spoken language to express information) documented in this encounter Plan of Treatment Not on filedocumented as of this encounter Visit Diagnoses Not on filedocumented in this encounter
--- OUTSIDE RECORDS SUMMARY | 2022-10-06 11:31 | XMS_ITS | Encounter Summary ---
:1960 Author Organization [place] Address [address] [facility] [place] [address] Care Team Providers Name Role Phone Kameron German MD Primary Care Provider Encounter Details Date Type Department Care Team Description 12/07/2007 Historic Results [facility] Heart Unknown, [address] [place] [address] Social History Tobacco Use Types Packs/Day Years Used Date Smoking Tobacco: Never Assessed Sex Assigned at Date Recorded Not on file documented as of this encounter Plan of Treatment Not on filedocumented as of this encounter Procedures Procedure Name Priority Date/Time Associated Diagnosis Comme nts ECHO CARDIAC - HIM SCAN 12/07/2007 12:00 AM FISHING ACCESSORIES MAKER - ARCHIVE documented in this encounter Results ECHO CARDIAC - HIM SCAN - ARCHIVE (12/07/2007 12:00 AM FISHING ACCESSORIES MAKER) Anatomical Region Laterality Modality Echocardiography Specimen (Source) Anatomical Location Collection Method / Collectio n Time Received Time / Laterality Volume 12/07/2007 Narrative This result has an attachment that is no t available. Provider Scan CV ECHO ORDERABLES documented in this encounter Visit Diagnoses Not on filedocumented in this encounter Care Teams Timber Management Professor Relationship Specialty Start Date End Date Kameron German MD PCP - General Family Practice 10/21/11 12/21/16 [facility] [address] [place] [id number] documented as of this encounter
--- OUTSIDE RECORDS SUMMARY | 2022-10-06 11:31 | XMS_ITS | Encounter Summary ---
:1960 Author Organization [place] Address [facility] [place] [address] Care Team Providers Name Role Phone Unavailable Primary Care Provider Unavailable Encounter Details Date Type Department Care Team Description 12/09/2007 Results Only [facility] Marianela Yanes MD [facility]UROLOGY Results [address] [place], [place] [phone] (Wo rk) Social History Tobacco Use Types Packs/Day Years Used Date Smoking Tobacco: Never Assessed Sex Assigned at Date Recorded Not on file documented as of this encounter Plan of Treatment Not on filedocumented as of this encounter Procedures Procedure Name Priority Date/Time Associated Diagnosis Comme nts HC CT HEAD WO Routine 12/09/2007 6:17 AM Results for this CONTRAST ENVIRONMENTAL ENGINEERING ASSISTANT procedure are i n the results section. documented in this encounter Results CT SCAN HEAD/BRAIN (12/09/2007 6:17 AM ENVIRONMENTAL ENGINEERING ASSISTANT) Anatomical Region Laterality Modality Other Specimen (Source) Anatomical Collection Method Collection Time Re ceived Time Location / / Volume Laterality 12/09/2007 6:17 AM ENVIRONMENTAL ENGINEERING ASSISTANT Impressions 12/09/2007 8:[address]ONMENTAL ENGINEERING ASSISTANT CT HEAD WITHOUT CONTRAST ??Dec 09, 2007 6:17:00 AM HISTORY: ??Stroke, headaches. Compare to previous. TECHNIQUE: Axial images of the head with out IV contrast material. COMPARISON: CT head dated 12/08/2007. FINDINGS: Again noted is the hemorrhagic infarct i n the right sylvian region. This is unchanged in size and appearance compared to the previous exam. No new pathology is identified. Th ere is no shift of the midline structures. There is a small amount of s ubarachnoid hemorrhage present. This is also unchanged. IMPRESSION: Stable scan, no significant change fei red to 12/08/2007. No new areas of hemorrhage. Festus Yanes MD SPECIAL IMAGING STUDIES documented in this encounter Visit Diagnoses Not on filedocumented in this encounter
--- OUTSIDE RECORDS SUMMARY | 2022-10-06 11:31 | XMS_ITS | Encounter Summary ---
:1960 Author Organization [place] Address [address] [place] [address]. [place] [address] Care Team Providers Name Role Phone Unavailable Primary Care Provider Unavailable Encounter Details Date Type Department Care Team Description 12/07/2007 Results Only [facility] Jeremy Laughlin, in [facility] [address] [place] [address] [place] [address] [phone] (Wo rk) Social History Tobacco Use Types Packs/Day Years Used Date Smoking Tobacco: Never Assessed Sex Assigned at Date Recorded Not on file documented as of this encounter Progress Notes Elizabeth Rice - 12/07/2007 3:21 PM PLANT SCIENCE PROFESSOR Quick Note: Faxed TE ECHO results to Dr Laughlin. T SCIENCE PROFESSOR documented in this encounter Plan of Treatment Not on filedocumented as of this encounter Procedures Procedure Name Priority Date/Time Associated Diagnosis Comme nts ZC ECHO Routine 12/07/2007 9:40 AM Results f or this HEART,TRANSESOPHAGE PLANT SCIENCE PROFESSOR procedur e are in AL,COMPLETE the results section. HC CT HEAD WO Routine 12/07/2007 7:34 AM Results for this CONTRAST PLANT SCIENCE PROFESSOR procedure are i n the results section. documented in this encounter Results ECHO HEART,TRANSESOPHAGEAL,COMPLETE (12/07/2007 9:40 AM PLANT SCIENCE PROFESSOR) [facility] Method Time Signature [facility] Interpretation Summary RESULTS No cardiac source of emboli noted. PatientHeight: 68 in PatientWeight: 216 lbs SystolicPressure: 112 mmHg DiastolicPressure: 89 mmHg HeartRate: 71 bpm BSA 2.1 m^2 RADHA Versed (5mg) was given intravenously. Fentanyl (100mcg) was given intravenously. Left Ventricle The left ventricle is normal in structure, function and size . Right Ventricle The right ventricle is normal in structure, function and siz e. Atria Normal left atrial size. Small appendage, no clot seen. Right atrial size is normal. Intact atrial septum. There is no color Doppler evidence of an atrial shunt. A contrast injection (Bubble Study) was performed that was n egative. Mitral Valve The mitral valve leaflets appear normal. There is no evidenc e of stenosis, fluttering, or prolapse. Tricuspid Valve Normal tricuspid valve. Vessels The aortic root is normal size. Normal ascending, transverse (arch), and descending aorta. Pericardial/Pleural No pericardial thickening. Rhythm The rhythm was normal sinus. Procedure Complete Portable RADHA Adult. Interpreting Physician: ??Saturnino Davalos, ??electronically signed on 12-07-2007 10:39:40 Anatomical Region Laterality Modality Other Specimen (Source) Anatomical Collection Method Collection Time Re ceived Time Location / / Volume Laterality 12/07/2007 9:40 AM PLANT SCIENCE PROFESSOR Kyle Laughlin MD SPECIAL IMAGING STUDIES CT SCAN HEAD/BRAIN (12/07/2007 7:34 AM PLANT SCIENCE PROFESSOR) Anatomical Region Laterality Modality Other Specimen (Source) Anatomical Collection Method Collection Time Re ceived Time Location / / Volume Laterality 12/07/2007 7:34 AM PLANT SCIENCE PROFESSOR Impressions 12/07/2007 4:[address] HEAD WITHOUT CONTRAST, ??Dec 07, 2007 , 7:34:00 a.m. HISTORY: Acute stroke with subarachnoid hemorrhage and left-sided weakness, facial droop and dysarthria. O ccluded right distal M1 segment. Subsequent thrombolysis. TECHNIQUE: 5 mm thick axial images of th e head without IV contrast material. COMPARISON: 12/06/2007 FINDINGS: There has been partial clearin g of subarachnoid hemorrhage from the lateral right cerebral hemisphe re. The focal hematoma in the right sylvian fissure lateral to the ins ruchi is slightly smaller. However, there is more edema in the insu la than on the previous exam. No new hemorrhage is present. There is mucosal thickening in the paran olivia sinuses. This is more prominent than on the previous exam. IMPRESSION: Decrease in right lateral ce rebral hemisphere subarachnoid hemorrhage and right sylvian fissure sub arachnoid hemorrhage, with increased edema in the right insula sinc e yesterday's exam. Kyle Laughlin MD SPECIAL IMAGING STUDIES documented in this encounter Visit Diagnoses Not on filedocumented in this encounter
--- OUTSIDE RECORDS SUMMARY | 2022-10-06 11:31 | XMS_ITS | Encounter Summary ---
:1960 Author Organization [address] [place] [address] Care Team Providers Name Role Phone Unavailable Primary Care Provider Unavailable Encounter Details Date Type Department Care Team Description 12/13/2007 Historic Notes INTERFACED REPORT Vesta Camacho, ASSOCIATE MEDIA PLANNER [address] [id number] (Wo rk) Social History Tobacco Use Types Packs/Day Years Used Date Smoking Tobacco: Never Assessed Sex Assigned at Date Recorded Not on file documented as of this encounter Progress Notes Vesta Camacho, ASSOCIATE MEDIA PLANNER - 02/08/2011 4:27 AM CDT Discharge Summary Discharge - Reason for Discharge Discharge from facility, to acute rehab - Progress toward achieving short Goals partially met 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 He needs to have written language and reading comprehension assessed. - Continued Therapy Recommended Yes - Rationale/ Recommendations see above Signatures Vesta Camacho (Speech Pathologist)[Signed 16:08] Authored: Discharge Summary documented in this encounter Plan of Treatment Not on filedocumented as of this encounter Visit Diagnoses Not on filedocumented in this encounter
--- OUTSIDE RECORDS SUMMARY | 2022-10-06 11:31 | XMS_ITS | Encounter Summary ---
:1960 Author Organization [place] Address [address] [place] [address]. [place] [address] Care Team Providers Name Role Phone Unavailable Primary Care Provider Unavailable Encounter Details Date Type Department Care Team Description 12/07/2007 Historic Notes INTERFACED REPORT Interface, Transcript on, Social History Tobacco Use Types Packs/Day Years Used Date Smoking Tobacco: Never Assessed Sex Assigned at Date Recorded Not on file documented as of this encounter Progress Notes Interface, Pricing Analyst - 02/08/2011 4:46 AM CDT Progress Note - :: Pt identified with verbal and pt ID band. Consent signed. Pause for the cause completed - identified right pt and right procedure. Verified allergies. Pt states he has had conscious sedation in the past with no difficulties. Pt has 20 G IV right arm, patent. Pt on O2 at 2lpm NC, increased to 4 lpm NC for procedure. Pt placed on left side and administered 0.1 mg Glycopyrolate IV, and orally swished and swallowed Panticane. Pharynx examined - scored a class 1 on [facility] Mallampati classification - MD (Dr. Davalos) completed the ASA physical classification. Throat sprayed with Hurricane spray x2 at 0940. IV of NS infusing at 75 ml/hour via right arm, sedated with 2 mg Versed and 50 mcg Fentanyl IVP. Pt properly sedated: Mostly sleeping, but able to follow commands with verbal coaching; RR 12, snoring, with sats 95-97% during procedure. RADHA began at 09:40 and completed at 0955 - pt did have 2 bubble studies during RADHA. Pt tolerated sedation well, however BP fell to 84/49 -- increased NS to 200 ml/hour with good recovery of BP to 99/70. Immediately post RADHA, pt awake and stiing up with periods of drowsiness in between. Pt A&O x3 post procedure, following commands. Pt denies pain. Continued post RADHA cares until 1030 when ICU nurse assumed care of pt. No adverse effects noted during procedure. All documentation completed (Pre procedure checklist, procedure flowsheet, MD signatures, RN signature, et al). SPORTS TEAM MANAGER placed pt back on pre-procedure O2 and IV's. See Moderate Sedation Flowsheet for complete documentation and times. Signatures NIELS SAVAGE (RN)[Signed 11:06] Authored: Progress Note Interface, Pricing Analyst - 02/08/2011 4:45 AM CDT SW: D: Per automatic MD order per CVI protocol met briefly with pt. as he was just about to have a therapy session. Pt. seems to be improving. Pt. had been completely independent prior to admission and working. A: Await therapy recommendations. P: Will follow to assist if needed for discharge plan. Lian Loya, [facility], [phone] [Signature] Author:MOSHE LOYA ([facility]) [Signed 15:26] Interface, Pricing Analyst - 02/08/2011 4:44 AM CDT General Information General Information - Type of Note Initial Evaluation - Patient Profile Review Yes - Onset Date - Referring Physician Kyle Laughlin - Patient/Family Goals to get out of the hospital - History of Present Problem admitted with altered mental status , slurred speech and left side weakness, Acute right MCA ischemic injury with subarachnoid blood from BBB, MRA neck -ve, h/o ETOH - Treatment Diagnosis unsteady gait - Precautions/Limitations Fall precautions - Weight Bearing Status No weight bearing restrictions - Observations up in chair Previous Level of Function Previous Level of Function - Ambulation/Mobility Skills Independent - Transfer Skills Independent - ADL Skills Independent - Work/Activity Level No restrictions Cognitive Status Cognitive Status - Orientation Orientation to person, place and time - Level of Consciousness Alert - Follows Commands and 100% of the time Answers Questions Pain Presence of pain - Do you have pain now Yes (See Assessment and Intervention Flowsheet) Range of Motion ROM - ROM ROM was appropriate in all areas Range of Motion (Assessment) Comments: ryder LE- wfl Strength Strength - Strength Strength was appropriate in all areas Strength (Assessment) Comments: ryder MACDONALD 5/ 5 all muscle groups , deconditioned from hospital stay Functional Performance Bed Mobility - Bed Mobility: Minimal assist, 1 person assist - Scooting/Bridging: Minimal assist, 1 person assist - Sit to supine: Moderate assist, 1 person assist Comments: assist at trunk given to slowly lower head to bed . Transfer - Transfer: Minimal assist, 1 person assist - Stand to Sit: Minimal assist, 1 person assist - Chair to bed: Minimal assist, 1 person assist Comments: step by step vc for sequencing and safety due to multiple tethers in the ICU. Balance - Balance: Independent - Sitting: Dynamic: Stand by assist - Standing: Static: Minimal assist, 1 person assist - Standing: Dynamic: Minimal assist, 1 person assist Gait - Gait: Minimal assist, 1 person assist, ambulated 5 feet from chair to bed, slow paced with vc for safety due to multiple ICU tethers, limited gait assessment as patient with headache 6/10 and patient fatigued after sitting up in chair for 20 mins. Treatment Plan/Modalities Treatments - Treatments Gait Training, Transfer Training, Bed Mobility Training, Strengthening, Stretching, Range of Motion, Neuromuscular Reeducation Prognosis/Impression Impression - Skilled Criteria for Yes Therapy Intervention Met - PT Practice Pattern Neuromuscular - Assessment Patient with left side weakness and R MCA infarct s/p intra- arterial tpa presents currently with headache 6/10, deconditioning from hospital stay, unsteadiness of gait and currently requires min A of 1 with bed mobility, gait and transfers, will benefit from skilled PT to address deficits to return patient to [facility]. - Rehabilitation Potential Good, to achieve stated therapy goals - Demonstrates need for OT referral to another service - Predicted Duration of 7 days Therapy - Predicted Frequency of bid Therapy - Discharge Destination Rehabilitation facility; acute rehab - Risks and Benefits of Yes Treatment have been explained. - Patient, family and/or Yes staff in agreement with Plan of Care Justino Chavez (PT)[Signed 16:05] Authored: General Information, Previous Level of Function, Cognitive Status, Pain, Range of Motion, Range of Motion (Assessment), Strength, Strength (Assessment), Functional Performance, Treatment Plan/Modalities, Prognosis/Impression documented in this encounter Plan of Treatment Not on filedocumented as of this encounter Visit Diagnoses Not on filedocumented in this encounter
--- OUTSIDE RECORDS SUMMARY | 2022-10-06 11:31 | XMS_ITS | Encounter Summary ---
:1960 Author Organization [place] Address [address] [facility] [place] [address] Care Team Providers Name Role Phone Unavailable Primary Care Provider Unavailable Encounter Details Date Type Department Care Team Description 12/12/2007 Historic Notes INTERFACED REPORT Marylin Restrepo [facility] [address] [place], [place] [id number] (Wo rk) Social History Tobacco Use Types Packs/Day Years Used Date Smoking Tobacco: Never Assessed Sex Assigned at Date Recorded Not on file documented as of this encounter Progress Notes Marylin Restrepo - 02/08/2011 4:32 AM CDT Discharge Summary Discharge - Reason for Discharge Discharge from facility, Acute Rehab - Progress toward achieving Goals partially met 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
--- OUTSIDE RECORDS SUMMARY | 2022-10-06 11:32 | XMS_ITS | Encounter Summary ---
:1960 Author Organization [place] Address [address] [place] [address]. [place] [address] Care Team Providers Name Role Phone Unavailable Primary Care Provider Unavailable Encounter Details Date Type Department Care Team Description 01/13/2006 GI Procedure [facility] Mango Mayer MD None Endoscopy [place] XX RETIRED XXX [address] [place] [address] [place] [address] [phone] Social History Tobacco Use Types Packs/Day Years Used Date Smoking Tobacco: Never Assessed Sex Assigned at Date Recorded Not on file documented as of this encounter Plan of Treatment Not on filedocumented as of this encounter Procedures Procedure Name Priority Date/Time Associated Diagnosis Comme nts COLONOSCOPY Routine 01/13/2006 9:15 AM Results f or this LINE WORKER procedure are i n the results section . documented in this encounter Results COLONOSCOPY (01/13/2006 9:15 AM LINE WORKER) [facility] Time Signature COLONOSCOPY Endoscopy RADIOLOGY RESULTS Patient Name: Shashank perrin ?Gender: M ? Procedure Date: 01/13/2006 9: 15 AM ? Date of : 1960 ?Age: 45 ? Admit Type: Outpatient ? Attending MD: Mango Mayer ? Procedure: ?Colonoscopy Indications: ?Abdominal distress/pain in the left lower quadrant Providers: ?Mango Mayer MD Referring MD: ?? Kameron German MD Medicines: ?Fentanyl 100 mcg IV, Midazola m 2 mg IV, Atropine 0.6 mg IV Complications: ??No immediate complications Procedure: ?- A History and Physical has been perfo rmed, and patient ?medi cation allergies have been reviewed. The patient The ?risk s and benefits of the procedure and the sedation options ?and risks were discussed with the patient. All questions were ?answered and informed consent was obtained. Patient ?iden tification and proposed procedure were verified prior to ?the procedure by the physician in the procedure room. Mental ?Stat us Examination: normal. Respiratory Examination: clear to ?ausc ultation. CV Examination: normal. ASA Grade Assessment: ?P2 A patient with mild systemic disease. After reviewing the ?risk s and benefits, the patient was deemed in satisfactory ?cond ition to undergo the procedure. The anesthesia plan was ?to u se moderate sedation / analgesia (conscious sedation). ?Imme diately prior to administration of medications, the ?katie ent was re-assessed for adequacy to receive sedatives. ?The heart rate, respiratory rate, oxygen saturations, blood ?pres sure, adequacy of pulmonary ventilation, and response to ?care were monitored throughout the procedure. The physical ?stat us of the patient was re-assessed after the procedure. ?Afte r obtaining informed consent, the colonoscope was passed ?unde r direct vision. Throughout the procedure, the patient's ?bloo d pressure, pulse, and oxygen saturations were monitored ?cont inuously. [id number] was introduced through ?the anus and advanced to the ileum. The colonoscopy was ?acco mplished without difficulty. The patient tolerated the ?procedure well. The quality of the p rep was good. ? Findings: ? The digital rectal ex am was normal. Two sessile polyps were found in the ? transverse colon. The polyps were 3 mm in size. These were biopsied with ? a hot forceps for histology. The rectum, sigmoid colo n, descending ? colon, splenic flexure, hepatic flexure, ascending co nicole, cecum, ? ileocecal valve and ileum were no rmal. The retroflexed view of the anal ? verge was normal and showed no anal or rectal abnorma lities. The ? terminal ileum was normal. ? Impression: ? - Two 3 mm polyps in the transverse colon. Tissue was removed. ?- The rectum, si gmoid colon, descending colon, splenic ?flex ure, hepatic flexure, ascending colon, cecum, ileocecal ?valve and terminal ileum are normal. ?- The terminal ileum is normal. Recommendation: - Discharge patient to home (ambulatory). ?- Patient should telephone endoscopi st in 1 week. ?- If polyp is adenomatous repeat colonoscopy in 3 years. If ?polyp is hyperplastic then hemoccu lts q yr and flex ?sigmoidoscopy in 3 yrs. ?- Return to primary care provider [place]. ? CPT Code(s): ?22547, Colonoscopy, flexible, proxim al to splenic flexure; ?with removal of tumor(s), polyp(s), or other lesion(s) by hot ?biopsy forceps or bipolar cautery ICD Code(s): ?211.3, Benign Neoplasm of Colon ?789.04, Abdominal Pain, Left Lower Q uadrant The codes documented in this report are prelimin shon and upon superintendent ammunition storage review may be revised to meet current compliance requirements. Chinyere Mayer M.D Mango Mayer MD Signed Date: 01/13/2006 9:56 AM Number of Addenda: 0 I was physically present for the entire viewing portion of t he exam. Note generated on 01/13/2006 9:14 AM COLONOSCOPY RADIOLOGY RESULTS Specimen (Source) Anatomical Collection Method Collection Time Re ceived Time Location / / Volume Laterality 01/13/2006 9:15 AM LINE WORKER Mango Mayer MD PROCEDURES Performing Organization Address City/State/ZIP Code Phon e Number RADIOLOGY RESULTS documented in this encounter Visit Diagnoses Not on filedocumented in this encounter
--- OUTSIDE RECORDS SUMMARY | 2022-10-06 11:32 | XMS_ITS | Encounter Summary ---
:1960 Author Organization [place] Address [address] [place] [address]. [place] [address] Care Team Providers Name Role Phone Unavailable Primary Care Provider Unavailable Encounter Details Date Type Department Care Team Description 10/22/2007 Results Only [facility] Monico osborn, Zak Briones MD Hospital Results EMERGENCY [facility] [address] [place], [place] [address] (Wo rk) Social History Tobacco Use Types Packs/Day Years Used Date Smoking Tobacco: Never Assessed Sex Assigned at Date Recorded Not on file documented as of this encounter Plan of Treatment Not on filedocumented as of this encounter Procedures Procedure Name Priority Date/Time Associated Diagnosis Comme [facility] LT X-RAY HAND Routine 10/22/2007 8:47 AM Resu lts for this 3+ VW TARIFF EXPERT procedure are i n the results section. documented in this encounter Results LT X-RAY HAND 3+ VW (10/22/2007 8:47 AM TARIFF EXPERT) Anatomical Region Laterality Modality Other Specimen (Source) Anatomical Collection Method Collection Time Re ceived Time Location / / Volume Laterality 10/22/2007 8:47 AM TARIFF EXPERT Impressions 10/22/2007 9:13 AM TARIFF EXPERT EXAM: ??HAND G/E 3 VIEWS LEFT* HISTORY: ??Injury. FINDINGS: Swelling of the left hand. Exa m otherwise negative. Zak Meyer MD GENERAL IMAGING documented in this encounter Visit Diagnoses Not on filedocumented in this encounter
--- OUTSIDE RECORDS SUMMARY | 2022-10-06 11:32 | XMS_ITS | Encounter Summary ---
:1960 Author Organization [place] Address [address] [place] [address]. [place] [address] Care Team Providers Name Role Phone Unavailable Primary Care Provider Unavailable Encounter Details Date Type Department Care Team Description 09/15/2007 [facility] Results [address] [address] (Wo rk) Social History Tobacco Use Types Packs/Day Years Used Date Smoking Tobacco: Never Assessed Sex Assigned at Date Recorded Not on file documented as of this encounter Plan of Treatment Not on filedocumented as of this encounter Procedures Procedure Name Priority Date/Time Associated Diagnosis Comme [facility] CT ABDOMEN W/O Routine 09/15/2007 8:51 AM Resu lts for this CONTRAST CDT procedure are i n the results section. documented in this encounter Results CT SCAN ABDOMEN (09/15/2007 8:51 AM CDT) Anatomical Region Laterality Modality Other Specimen (Source) Anatomical Collection Method Collection Time Re ceived Time Location / / Volume Laterality 09/15/2007 8:51 AM CDT Impressions 09/15/2007 9:28 AM CDT EXAM: ??CT ABDOMEN W/CONTRAST* ??Sep 15, 2007 8:51:00 AM HISTORY: ??Left upper quadrant pain. His tory of splenectomy. TECHNIQUE: Scans obtained from the diaph ragm through the pelvis with oral and IV contrast. 100 ??mL Optiray 3 00 injected. COMPARISON: ??11/16/2006. FINDINGS: Mild diffuse fatty infiltratio n of the liver. Liver is otherwise normal. The soft tissue densit y in the region of the tail of the pancreas seen previously is again no javi. This has not changed appreciably in size or contour and most likely represents an accessory spleen. Several smaller nodular densitie s identified in this region which were present previously and also m ost likely represent small accessory spleens. Pancreas is otherwise normal. Both kidneys are normal. Remainder of the scan is negativ e and unchanged from the previous study. IMPRESSION: 1. 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 These have not changed in s ize or appearance since 11/16/2006. 2. Remainder of the scan is unchanged. Kameron German MD SPECIAL IMAGING STUDIES documented in this encounter Visit Diagnoses Not on filedocumented in this encounter
--- OUTSIDE RECORDS SUMMARY | 2022-10-06 11:32 | XMS_ITS | Encounter Summary ---
:1960 Author Organization [place] Address [facility] [place] [address] Care Team Providers Name Role Phone Unavailable Primary Care Provider Unavailable Encounter Details Date Type Department Care Team Description 12/06/2007 Results Only [facility] Jeremy Laughlin, in [place] [facility] [address] [place] [address] [place] [address] [phone] (Wo rk) Social History Tobacco Use Types Packs/Day Years Used Date Smoking Tobacco: Never Assessed Sex Assigned at Date Recorded Not on file documented as of this encounter Progress Notes Elizabeth Rice - 12/07/2007 3:19 PM ASW SPECIALIST Quick Note: ECHO results faxed to Dr Laughlin. SPECIALIST documented in this encounter Plan of Treatment Not on filedocumented as of this encounter Procedures Procedure Name Priority Date/Time Associated Diagnosis Comme [facility] ECHO HEART Routine 12/06/2007 2:05 PM Results for this XTHORACIC,COMPLETE, ASW SPECIALIST procedur e are in W/O DOPPLER the results section. HC MRA NECK W/O Routine 12/06/2007 8:53 AM Result s for this CONTRAST ASW SPECIALIST procedure are i n the results section. HC MRI BRAIN W/O Routine 12/06/2007 8:53 AM Resul ts for this CONTRAST ASW SPECIALIST procedure are i n the results section. documented in this encounter Results ECHO HEART,COMPLETE (12/06/2007 2:05 PM ASW SPECIALIST) [facility] Method Time Signature [facility] RADIOLOGY Interpretation Summary RESULTS No obvious cardiac source of emboli was seen within the limi ts of a transthoracic echocardiogram. The left ventricle is normal in size. There is normal left ventricular wall thickness. The left ventricular ejection fraction is n ormal. The transmitral spectral Doppler flow pattern is suggestive of diastolic d ysfunction of the left ventricle. PatientHeight: 68 in PatientWeight: 230 lbs HeartRate: 93 bpm BSA 2.2 m^2 Left Ventricle The left ventricle is normal in size. There is normal left ventricular wall thickness. The left ventricular ejection fraction is normal. The transmitral spectral Doppler flow pattern is suggestive of diastolic dysfunction of the left ventricle. Normal left ventricular wall motion. Right Ventricle The right ventricle is normal in structure, function and siz e. Atria Normal left atrial size. Right atrial size is normal. Intact atrial septum. Mitral Valve The mitral valve is normal in structure and function. There is trace mitral regurgitation. There is no mitral valve stenosis. Tricuspid Valve The tricuspid valve is normal in structure and function. Right ventricular systolic pressure is normal. There is trace tricuspid regurgitation. Aortic Valve The aortic valve is normal in structure and function. Pulmonic Valve The pulmonic valve is not well visualized. Vessels Normal size aorta. The IVC is normal in size and reactivity with respirat ion, suggesting normal central venous pressure. Pericardial/Pleural The pericardium appears normal. Rhythm The rhythm was normal sinus. Procedure Complete Portable Echo Adult. MMode 2D Measurements & Calculations IVSd: 0.99 cm LVIDd: 4.6 cm Ao root diam: 2.9 cm LA dimension: 3.5 cm LA/Ao: 1.2 Doppler Measurements & Calculations MV E point: 65 cm/sec MV A point: 89 cm/sec MV E/A: 0.73 MV dec time: 0.27 sec Interpreting Physician: ??Nitin Garcia MD electronically signed on 12-06-2007 15:10:49 Anatomical Region Laterality Modality Other Specimen (Source) Anatomical Collection Method Collection Time Re ceived Time Location / / Volume Laterality 12/06/2007 2:05 PM ASW SPECIALIST Kyle Laughlin MD SPECIAL IMAGING STUDIES MR ANGIO, NECK (12/06/2007 8:53 AM ASW SPECIALIST) Anatomical Region Laterality Modality Other Specimen (Source) Anatomical Collection Method Collection Time Re ceived Time Location / / Volume Laterality 12/06/2007 8:53 AM ASW SPECIALIST Impressions 12/06/2007 8:33 PM ASW SPECIALIST EXAMINATION: MRA OF THE NECK, Dec 06 8:53:00 AM CLINICAL INDICATION: Acute stroke sympto ms. COMPARISON: There are no prior cervical angiograms available for comparison. TECHNIQUE: 1.5 Madeline MRI was utilized to obtain axial 2 dimensional [id number] and coronal 3D time-of-fl ight with contrast to evaluate the cervical vasculature. Multiple MIP i mages were also obtained. In addition, axial T1 fat-sat images throug h the neck were also obtained. Measurements are made relative to the di stal internal carotid artery. FINDINGS: The common carotid, internal a nd external carotid arteries are normal without evidence of hemodynam ically significant stenosis, aneurysm or dissection. The vertebral arteries are normal withou t evidence of hemodynamically significant stenosis, aneurysm or dissec tion. The left vertebral artery is dominant. IMPRESSION: NO EVIDENCE OF HEMODYNAMICAL LY SIGNIFICANT STENOSIS, ANEURYSM OR DISSECTION. Kyle Laughlin MD SPECIAL IMAGING STUDIES MRI BRAIN (12/06/2007 8:53 AM ASW SPECIALIST) Anatomical Region Laterality Modality Other Specimen (Source) Anatomical Collection Method Collection Time Re ceived Time Location / / Volume Laterality 12/06/2007 8:53 AM ASW SPECIALIST Impressions 12/06/2007 8:32 PM ASW SPECIALIST EXAMINATION: MRI OF THE BRAIN WITH AND W ITHOUT CONTRAST on Dec 06, 2007 8:53:00 AM INDICATION: Acute stroke symptoms. COMPARISONS: Comparisons are made to a d CT from 12/06/2007. TECHNIQUE: 1.5 Madeline MRI includes axial gradient echo, ??axial T2, axial and coronal ??FLAIR, axial diffusi on weighted imaging and sagittal T1 images. In addition, axial T 1 postcontrast images were obtained. There were no immediate contrast complic ations. FINDINGS: There is restricted diffusion within the right MCA territory consistent with cytotoxic edema. There i s subarachnoid blood or contrast at the right frontal and pariet al lobes. There is a focal area of susceptibility artifact within t he right sylvian fissure consistent with blood products. There is no mass, mass effect or hemorrh age. There is no extra-axial fluid collection. The flow voids at the base of the brain are normal. The left vertebral artery is dominant. T here is no evidence of obstructive hydrocephalus. There is no e vidence of abnormal enhancement. The visualized dural venous sinuses and cortical veins are patent. There is moderate mucosal thickening of the maxillary sinuses and ethmoid air cells. The visualized parana anuradha sinuses, mastoid air cells, bones, globes, orbits and soft ti ssues are normal. IMPRESSION: Acute right MCA ischemic inj ury with subarachnoid blood in the sylvian fissure and overlying the fr ontal and parietal lobes, likely secondary to a breakdown of the b lood-brain barrier. Kyle Laughlin MD SPECIAL IMAGING STUDIES documented in this encounter Visit Diagnoses Not on filedocumented in this encounter
--- OUTSIDE RECORDS SUMMARY | 2022-10-06 11:32 | XMS_ITS | Encounter Summary ---
:1960 Author Organization [place] Address [facility], later [facility] 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 POSTOPERATIVE DIAGNOSIS: Epidermal inclusion cyst and minimal residual Dupuytren's disease. PROCEDURE: Excisional biopsy of soft tissue mass, right palm. SURGEON: Mark Lopez MD ANESTHESIA: Local with sedation. PREOPERATIVE HISTORY: This 45-year-old gentleman is status post Dupuytren's nodule excision and hasnoted a subcutaneous nodule that has reperformed, that has the appearance of an epidermal occlusion cyst within the scar. He presents this time for an excisional biopsy. DESCRIPTION OF THE PROCEDURE: After obtaining informed consent, he was brought to the operating room. The right upper extremity was prepped and draped sterilely. Local anesthetic was infiltrated in the skin and subcutaneous tissue along the previous scar along the palm. A transverse incision was thenmade, and a Bent blade was then used to dissect along the scar tissue circumferentially around thesoft tissue mass. There was minimal amount of Dupuytren's disease adherent to the skin along the small finger. It was just ulnar to the previous excision. This was excised along with a soft tissue mass. Soft tissue mass had the appearance of an epidermal inclusion cyst. The wound was then thoroughly ir rigated. The entire cyst was excised completely encapsulated and wound was irrigated and closed with5-0 nylon suture. Sterile dressing with gentle compression with Coban was applied. He tolerated the procedure well with no complications and transferred recovery in stable condition. MARK LOPEZ MD MT: [id number] Name: SHASHANK HASTINGS Account: [id number] : 1960 Procedure Date: 02/02/2006 Document: [id number] ING MACHINE SET UP OPERATOR documented in this encounter Plan of Treatment Not on filedocumented as of this encounter Visit Diagnoses Not on filedocumented in this encounter
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
--- OUTSIDE RECORDS SUMMARY | 2022-10-06 11:32 | XMS_ITS | Encounter Summary ---
:1960 Author Organization [place] Address [address] [place] [address]. [place] [address] Care Team Providers Name Role Phone Unavailable Primary Care Provider Unavailable Encounter Details Date Type Department Care Team Description 05/07/2006 Historic Results INTERFACED REPORT Harlan German MD [address] [phone] (Wo rk) Social History Tobacco Use Types Packs/Day Years Used Date Smoking Tobacco: Never Assessed Sex Assigned at Date Recorded Not on file documented as of this encounter Plan of Treatment Not on filedocumented as of this encounter Procedures Procedure Name Priority Date/Time Associated Comments Diagnosis RAPID STREP SCREEN STAT 05/07/2006 9:20 AM Res ults for this THROAT SWAB CDT procedure are i n the results section. BETA HEMOLYTIC STREP Routine 05/07/2006 9:20 AM R esults for this GROUP A CULTURE CDT procedure ar e in the results section. WBC AND DIFFERENTIAL STAT 05/07/2006 8:30 AM R esults for this PANEL CDT procedure are i n the results section. documented in this encounter Results Rapid strep screen (05/07/2006 9:20 AM CDT) Component Value Ref Test Analysis Performed At [facility] Range Method Time Signature Specimen Throat MISYS Description Micro Report FINAL [id number] MISYS Status Rapid Strep A NEGATIVE: No MISYS Screen Group A streptococcal antigen detected by immunoassay, await Comment: culture report. Specimen Anatomical Collection Method Collection Time Receive d Time (Source) Location / / Volume Laterality 05/07/2006 9:20 AM 6 9:20 CDT AM CDT Anton Gonzalez MD LAB - MICRO GENERAL ORDERABL ES Performing Organization Address City/[facility]/ZIP Code Phon e Number MISYS Beta strep group A culture (05/07/2006 9:20 AM CDT) Component Value Ref Test Analysis Performed At [facility] Range Method Time Signature Specimen Throat MISYS Description Culture Micro No beta MISYS hemolytic Streptococcus Group A isolated Micro Report FINAL [id number] MISYS Status Specimen Anatomical Collection Method Collection Time Receive d Time (Source) Location / / Volume Laterality 05/07/2006 9:20 AM 6 9:43 CDT AM CDT Kameron German MD LAB - MICRO GENERAL ORDERABL ES Performing Organization Address [facility] Phon e Number MISYS WBC and differential (05/07/2006 8:30 AM CDT) [facility] Method Time Signature WBC 10.6 4.0 - MISYS 11.0 10e9/L % Neutrophils 45 40 - 75 % MISYS % Lymphocytes 40 20 - 48 % MISYS % Monocytes 9 0 - 12 % MISYS % Eosinophils 4 0 - 6 % MISYS % Basophils 2 0 - 2 % MISYS Absolute 4.8 1.6 - 8.3 MISYS Neutrophil 10e9/L Absolute 4.2 0.8 - 5.3 MISYS Lymphocytes 10e9/L Absolute 1.0 0.0 - 1.3 MISYS Monocytes 10e9/L Absolute 0.4 0.0 - 0.7 MISYS Eosinophils 10e9/L Absolute 0.2 0.0 - 0.2 MISYS Basophils 10e9/L Diff Method Automated MISYS Method Specimen Anatomical Collection Method Collection Time Receive d Time (Source) Location / / Volume Laterality 05/07/2006 8:30 AM 6 8:18 CDT AM CDT Anton Gonzalez MD LAB - BLOOD ORDERABLES Performing Organization Address City/[facility]/ZIP Code Phon e Number MISYS documented in this encounter Visit Diagnoses Not on filedocumented in this encounter
--- OUTSIDE RECORDS SUMMARY | 2022-10-06 11:32 | XMS_ITS | Encounter Summary ---
:1960 Author Organization [place] Address [address] [place] [address]. [place] [address] Care Team Providers Name Role Phone Unavailable Primary Care Provider Unavailable Encounter Details Date Type Department Care Team Description 12/05/2007 Results Only [facility] Golden White , [facility] Results [facility] [place] [address] [facility] [place] [phone] (Wo rk) Social History Tobacco Use Types Packs/Day Years Used Date Smoking Tobacco: Never Assessed Sex Assigned at Date Recorded Not on file documented as of this encounter Plan of Treatment Not on filedocumented as of this encounter Procedures Procedure Name Priority Date/Time Associated Diagnosis Comme nts HC CT HEAD WO Routine 12/05/2007 7:13 PM Results for this CONTRAST PRODUCTION TECH procedure are i n the results section. documented in this encounter Results CT SCAN HEAD/BRAIN (12/05/2007 7:13 PM PRODUCTION TECH) Anatomical Region Laterality Modality Other Specimen (Source) Anatomical Collection Method Collection Time Re ceived Time Location / / Volume Laterality 12/05/2007 7:13 PM PRODUCTION TECH Impressions 12/05/2007 7:51 PM PRODUCTION TECH EXAM: ??CT HEAD W/O CONTRAST* ??Dec 05, 2007 7:13:00 PM HISTORY: ??Post TPA right middle cerebra l artery. TECHNIQUE: ??Scans were obtained through the head without IV contrast. COMPARISON: ??12/05/2007. FINDINGS: ??Fairly extensive increased d ensity in the subarachnoid space involving the right cerebral hemis phere which in light of the patient's history may be secondary to ex travasated contrast; however, subarachnoid hemorrhage cannot be exclud ed. Small area of increased density in the insular cortex on image 1 5 which most likely represents a small area of contrast extravasation. Mild mass-effect identified with slight shift of the midline structu res to the left which is unchanged from earlier today. Remainder of the scan is unchanged. Thickened membrane in both maxillary sin uses and in the ethmoid air cells. No bony abnormality. IMPRESSION: 1. Increased subarachnoid density in the right cerebral hemisphere which may represent subarachnoid contras t and/or hemorrhage. 2. Small area of intraparenchymal extrav asated contrast in the right insular cortex. Golden White MD SPECIAL IMAGING STUDIES documented in this encounter Visit Diagnoses Not on filedocumented in this encounter
--- OUTSIDE RECORDS SUMMARY | 2022-10-06 11:32 | XMS_ITS | Encounter Summary ---
:1960 Author Organization [place] Address [address] [place] [address]. [place] [address] Care Team Providers Name Role Phone Kameron German MD Primary Care Provider Encounter Details Date Type Department Care Team Description 12/05/2007 Historic Results INTERFACED REPORT Gracie James MD EMERGENCY PHYSIC [place] [phone] (Wo rk) Social History Tobacco Use Types Packs/Day Years Used Date Smoking Tobacco: Never Assessed Sex Assigned at Date Recorded Not on file documented as of this encounter Plan of Treatment Not on filedocumented as of this encounter Procedures Procedure Name Priority Date/Time Associated Diagnosis Comme nts EKG 12 LEAD Routine 12/05/2007 3:22 PM Results f or this POST MANAGER procedure are i n the results section . documented in this encounter Results EKG 12 LEAD (12/05/2007 3:22 PM POST MANAGER) [facility] Method Time Signature Ventricular Rate 86 BPM RADIOLOGY RESULTS Atrial Rate 86 BPM RADIOLOGY RESULTS AK Interval 154 ms RADIOLOGY RESULTS QRS Duration 84 ms RADIOLOGY RESULTS QT 374 ms RADIOLOGY RESULTS QTc 447 ms RADIOLOGY RESULTS P [place] 34 degrees RADIOLOGY RESULTS R AXIS 29 degrees RADIOLOGY RESULTS T [place] 17 degrees RADIOLOGY RESULTS Interpretation Sinus rhythm RADIOLOGY ECG Normal ECG RESULTS No previous ECGs available Specimen Anatomical Collection Method Collection Time Receive d Time (Source) Location / / Volume Laterality 12/05/2007 3:22 PM 8 2:50 POST MANAGER PM POST MANAGER Ej James MD ECG ORDERABLES Performing Organization Address City/State/ZIP Code Phon e Number RADIOLOGY RESULTS documented in this encounter Visit Diagnoses Not on filedocumented in this encounter Care Teams Reimbursement Liaison Relationship Specialty Start Date End Date Kameron German MD PCP - General Family Practice 10/21/11 12/21/[address] [phone] documented as of this encounter
--- OUTSIDE RECORDS SUMMARY | 2022-10-06 11:32 | XMS_ITS | Encounter Summary ---
:1960 Author Organization [place] Address [facility] [place] [address] Care Team Providers Name Role Phone Unavailable Primary Care Provider Unavailable Encounter Details Date Type Department Care Team Description 10/22/2007 Emergency room Anton Gonzalez MD [place] [address] Social History Tobacco Use Types Packs/Day Years Used Date Smoking Tobacco: Never Assessed Sex Assigned at Date Recorded Not on file documented as of this encounter Progress Notes Interface, Tig Welder - 10/31/2007 3:34 PM FAITH DOCTOR FINAL CHIEF COMPLAINT: Evaluate left hand injury. HISTORY OF PRESENT ILLNESS: Shashank Hastings is a 47-year-old male who was helping his father. Heinjured his left hand when it was struck against a piece of firewood. He complains of pain and swelling on the back surface of his hand. He denies loss of function, range of motion and/or feeling of any digits of the left hand. No other injury occurred at the time of this incident. PAST MEDICAL HISTORY: Remarkable for hypercholesterolemia, for which he takes Lipitor, and reflux disease treated with Nexium. ALLERGIES: He has no known allergies. IMMUNIZATIONS: There is uncertainty as to his last tetanus immunization. PERSONAL AND SOCIAL HISTORY AND FAMILY HISTORY: Negative. REVIEW OF SYSTEMS: Please see present illness. Completed systems review is negative. PHYSICAL EXAMINATION: VITAL SIGNS: Temperature is 97.7, pulse 94, respirations 20, blood pressure 164/79. O2 sat is 99% on room air. GENERAL: A pleasant, cooperative male of stated age. EXTREMITY: Musculoskeletal and skin examination of the left hand reveals mid dorsal ecchymotic, tender swelling and discoloration of a superficial abrasion. There is no bony step off or crepitus. Neurocirculatory function distally of all digits is normal. Extensor and flexor function of the MCP, PIP and DIP joints is normal as well. LABORATORY AND DIAGNOSTIC IMAGING: Digital imaging of the left hand reveals no evidence of fracture. DISCUSSION, PLAN AND DISPOSITION: The wound was cleaned with Shur-Clens, irrigated with sterile saline, and bacitracin gauze dressing was applied. The patient is to elevate the hand with the use of a sling, is to treat the pain with ibuprofen or Tylenol and supplement with Vicodin. Tetanus immunization was updated, and he was given a work status report modifying his work temporarily. He needs to follow up with his primary care physician, Dr. German later this week. DISCHARGE DIAGNOSIS: Abrasion and contusion of the left hand. Electronically signed on 10/31/2007 15:33 by ANTON GONZALEZ MD MT: [id number] Name: SHASHANK HASTINGS Account: [id number] : 1960 Visit Date: 10/22/2007 Document: [id number] H DOCTOR documented in this encounter Plan of Treatment Not on filedocumented as of this encounter Visit Diagnoses Not on filedocumented in this encounter
--- OUTSIDE RECORDS SUMMARY | 2022-10-06 11:32 | XMS_ITS | Encounter Summary ---
:1960 Author Organization [place] Address [facility] [place] [address] Care Team Providers Name Role Phone Unavailable Primary Care Provider Unavailable Encounter Details Date Type Department Care Team Description 12/05/2007 Discharge Summary [place] Se bebe Blue MD (Assembler Crimper) Hospital[facility] [address] [place] [address] [address] KATHRYN CASTILLO [address] [place] [address] [place], [place] [phone] (Wo rk) [id number] [phone] Social History Tobacco Use Types Packs/Day Years Used Date Smoking Tobacco: Never Assessed Sex Assigned at Date Recorded Not on file documented as of this encounter Progress Notes Interface, Assembler Crimper - 12/18/2007 7:06 PM COAGULATING BATH MIXER FINAL PLANNED DISCHARGE DATE: 12/11/2007 PRIMARY CARE PHYSICIAN: Kyle Laughlin MD DISCHARGE DIAGNOSES: 1. Acute cerebrovascular accident, status post t-PA administration. 2. Hypertension, adequate control 3. Chronic alcoholism. 4. Dyslipidemia. 5. Acid reflux disease. 6. Gastroparesis. CONSULTS OBTAINED DURING INPATIENT STAY: Neurology consult. Refer to dictation by Dr. aLughlin. PROCEDURES PERFORMED DURING THE INPATIENT STAY: 1. TPN administration. 2. CT of the angio with CT head without contrast and MRA/MRI of the neck. Transesophageal echogram,which was negative for PFO. MEDICATIONS AT DISCHARGE: 1. Nexium 40 mg daily. 2. Folic acid 1 mg daily. 3. Metoprolol 25 mg b.i.d. 4. Milk of magnesium p.r.n. 5. Multivitamin 1 tablet. 6. MiraLax 17 grams daily p.r.n. 7. Seroquel 25 mg q.8h. p.r.n. for anxiety. 8. Senna 2 tablets each day at bedtime for constipation, hold for loose stools. 9. Simvastatin, increased to 80 mg every evening. 10. Aspirin 81 mg a day. 11. Reglan 5 mg t.i.d. This is a new medication. 12. Ultram 50 mg q.6h. p.r.n. pain for headache. HISTORY OF PRESENT ILLNESS, HOSPITAL COURSE AND SIGNIFICANT FINDINGS: Shashank Hastings is a 47-year-old gentleman who was brought to the emergency room after he had sudden onset of dizziness and loss of balance. CT angiogram of the native of [place] obtained on an emergency basis revealed cut-off inthe right M2 segment of the middle cerebral artery and thereafter patient was given intra- arterial thrombolysis. The patient was managed as per protocol. He continued to do well. He was found to be in alcohol withdrawal. On initial presentation he was also found to be dyslipidemic with poor control. In light of the above, appropriate treatment measures were initiated. On initial admission, the patient was to the ICU. Thereafter, he was moved to regular floor and it was deemed that he is a very good candidate and has excellent rehab potential for acute rehabilitation. In light of the above and no acute care issues remaining, he was deemed appropriate and stable for discharge on 12/11/2007. DISCHARGE DISPOSITION: To acute rehab. Activities as tolerated. Fall precautions to be reinstituted. Diet is low fat diet. Follow-up with Dr. Laughlin in about 3-4 weeks' time. The patient is stronglyrecommended not to drink alcohol. I am not sure if this will follow or not. He was also recommended outpatient alcohol detox, which he declined completely. Total discharge time today was in excess of 35 minutes. It has been a pleasure to participate in the care of this patient. If there are questions, please feel free to contact us. Electronically signed on 12/18/2007 19:05 by VAL DAI MD MT: [place] Name: SHASHANK HASTINGS MRN: [id number] Account: [id number] : 1960 Admit Date: [id number] Discharge Date: 12/12/2007 Document: [id number] cc: Kyle Laughlin MD ULATING BATH MIXER documented in this encounter Plan of Treatment Not on filedocumented as of this encounter Visit Diagnoses Not on filedocumented in this encounter
--- OUTSIDE RECORDS SUMMARY | 2022-10-06 11:32 | XMS_ITS | Encounter Summary ---
:1960 Author Organization [place] Address [address] [place] [address]. [place] [address] Care Team Providers Name Role Phone Unavailable Primary Care Provider Unavailable Encounter Details Date Type Department Care Team Description 11/16/2006 Results Only [facility] Chinyere Mayer MD Hospital [place] [address] (Wo rk) Social History Tobacco Use Types Packs/Day Years Used Date Smoking Tobacco: Never Assessed Sex Assigned at Date Recorded Not on file documented as of this encounter Plan of Treatment Not on filedocumented as of this encounter Procedures Procedure Name Priority Date/Time Associated Diagnosis Comme [facility] CT ABDOMEN W/O Routine 11/16/2006 7:42 AM Resu lts for this CONTRAST COMMUNITY FUNDRAISER procedure are i n the results section. documented in this encounter Results CT SCAN ABDOMEN (11/16/2006 7:42 AM COMMUNITY FUNDRAISER) Anatomical Region Laterality Modality Other Specimen (Source) Anatomical Collection Method Collection Time Re ceived Time Location / / Volume Laterality 11/16/2006 7:42 AM COMMUNITY FUNDRAISER Impressions 11/16/2006 9:05 AM COMMUNITY FUNDRAISER History: ?Left lower quadrant pain. Previous splenectomy. Previous scan of 10/26/2005 available for Technique: ?Scans were obtained from the apices through the upper pelvis with oral and IV contrast. 100 mL of Optiray 300 injected. Findings: ?? Liver is normal in size and contour without evidence of mass. 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 Again noted is the rounded uniformly enhancing area in the region of the tail of the pancreas which could represent another a ccessory spleen which has increased in size following splenectomy. This has increased slightly in size since 10/26/2005. Neoplasm in thi s region cannot be totally excluded. Continued followup in one year is recommended. Remainder of the pancreas is normal. Both kidneys are normal. No abdominal or retroperitoneal adenopathy or inflammato ry process seen. Remainder of the scan is negative. Impression: ? 1. Uniformly enhancing lesion in the izaiah l of the pancreas which I feel most likely represents an accessory sple en which has increased in size since splenectomy. There are several ot er similar nodular densities in the left upper quadrant posteriorly c onsistent with accessory spleens. Since this has increased slight ly in size continued followup is recommended. 2. Remainder of the scan is negative and unchanged from the previous study. Mango Mayer MD SPECIAL IMAGING STUDIES documented in this encounter Visit Diagnoses Not on filedocumented in this encounter
--- OUTSIDE RECORDS SUMMARY | 2022-10-06 11:32 | XMS_ITS | Encounter Summary ---
:1960 Author Organization [place] Address [address] [place] [address]. [place] [address] Care Team Providers Name Role Phone Unavailable Primary Care Provider Unavailable Encounter Details Date Type Department Care Team Description 12/05/2007 Results Only [facility] Se era James MD [facility] EMERGENCY [facility] [place] [place] Results [address] [place], [place] [address] (Wo rk) Social History Tobacco Use Types Packs/Day Years Used Date Smoking Tobacco: Never Assessed Sex Assigned at Date Recorded Not on file documented as of this encounter Plan of Treatment Not on filedocumented as of this encounter Procedures Procedure Name Priority Date/Time Associated Diagnosis Comme nts CT ANGIO HEAD Routine 12/05/2007 3:43 PM Resul ts for this WO&W CONTRAST TRAVELING SALES EXECUTIVE procedure are in the results section. HC CT HEAD WO Routine 12/05/2007 3:03 PM Results for this CONTRAST TRAVELING SALES EXECUTIVE procedure are i n the results section. documented in this encounter Results CT ANGIO, HEAD (12/05/2007 3:43 PM TRAVELING SALES EXECUTIVE) Anatomical Region Laterality Modality Other Specimen (Source) Anatomical Collection Method Collection Time Re ceived Time Location / / Volume Laterality 12/05/2007 3:43 PM TRAVELING SALES EXECUTIVE Impressions 12/05/2007 11:28 PM TRAVELING SALES EXECUTIVE EXAMINATION: CT ANGIOGRAM OF THE BRAIN W ITH CONTRAST, Dec 05, 2007 3:43:00 PM. INDICATION: Brain attack. COMPARISON: Comparisons are made to nonc ontrast head CT from 12/05/2005. TECHNIQUE: Helical 2.0 mm axial images w ere obtained from the aortic arch through the vertex. Coronal and sag ittal reformats of the brain were then obtained. FINDINGS: There is an abrupt cutoff of t he distal right M1 segment of the middle cerebral artery. Collateral f low is demonstrated in the right middle cerebral artery distributio n through anterior communicating and posterior communicatin g collaterals. Internal carotid, vertebral and basilar arteries are normal. The anterior, left middle and posterior cere bral arteries are widely patent. There is no evidence of aneurysm , hemodynamically significant stenosis or dissection. The visualized dural sinuses and cortica l veins are normal. IMPRESSION: Abrupt cutoff of the distal right M1 segment of the middle cerebral artery. Collateral flow is demo nstrated through patent MELCHOR and CATALYST RECOVERY OPERATOR collaterals. This occlusion is a menable to intravenous or intra-arterial tPA depending on the julius ng of the patient's symptoms. These findings were conveyed to Dr. Estela cobb in the emergency room at the time of interpretation. Ej James MD SPECIAL IMAGING STUDIES CT SCAN HEAD/BRAIN (12/05/2007 3:03 PM TRAVELING SALES EXECUTIVE) Anatomical Region Laterality Modality Other Specimen (Source) Anatomical Collection Method Collection Time Re ceived Time Location / / Volume Laterality 12/05/2007 3:03 PM TRAVELING SALES EXECUTIVE Impressions 12/05/2007 11:27 PM TRAVELING SALES EXECUTIVE EXAMINATION: HEAD CT WITHOUT CONTRAST ?? Dec 05, 2007 3:03:00 PM CLINICAL INDICATION: Left-sided weakness , evaluate for acute ischemic injury. TECHNIQUE: Contiguous 4.8 mm axial image s were obtained from the foramen magnum to the vertex. COMPARISON: There are no prior images of the brain for comparison. FINDINGS: The ventricles, sulci, cistern s are normal for the patient's age. There is no mass, mass effect or he morrhage. There is no evidence of an acute territorial infarct. There i s no extra-axial fluid collection. There is no evidence of obst ructive hydrocephalus. There is moderate mucosal thickening of the maxillary sinuses. Otherwise, the visualized paranasal sinu ses, mastoid air cells, bones, globes and orbits are normal. The soft t issues are unremarkable. IMPRESSION: No acute intracranial proces s. Ej James MD SPECIAL IMAGING STUDIES documented in this encounter Visit Diagnoses Not on filedocumented in this encounter
--- OUTSIDE RECORDS SUMMARY | 2022-10-06 11:32 | XMS_ITS | Encounter Summary ---
:1960 Author Organization [place] Address [facility] [place] [address] Care Team Providers Name Role Phone Unavailable Primary Care Provider Unavailable Encounter Details Date Type Department Care Team Description 12/05/2007 Historic Results INTERFACED REPORT Steph Linda MD [facility] [address] [place], [place] [phone] (Wo rk) Social History Tobacco Use Types Packs/Day Years Used Date Smoking Tobacco: Never Assessed Sex Assigned at Date Recorded Not on file documented as of this encounter Plan of Treatment Not on filedocumented as of this encounter Procedures Procedure Name Priority Date/Time Associated Comments Diagnosis MRSA SCREEN Routine 12/05/2007 9:40 PM Results f or this SCIENCE TUTOR procedure are i n the results section. GLUCOSE BY METER Routine 12/05/2007 7:25 PM Resul ts for this SCIENCE TUTOR procedure are i n the results section. HEMOGRAM DIFFERENTIAL STAT 12/05/2007 2:50 PM Results for this AND PLATELET SCIENCE TUTOR procedure are i n the results section. TROPONIN I STAT 12/05/2007 2:50 PM Results f or this SCIENCE TUTOR procedure are i n the results section. INR STAT 12/05/2007 2:50 PM Results f or this SCIENCE TUTOR procedure are i n the results section. PARTIAL THROMBOPLASTIN STAT 12/05/2007 2:50 PM Results for this TIME SCIENCE TUTOR procedure are i n the results section. COMPREHENSIVE METABOLIC STAT 12/05/2007 2:50 PM Results for this PANEL SCIENCE TUTOR procedure are i n the results section. ETHYL ALCOHOL LEVEL STAT 12/05/2007 2:50 PM Re sults for this SCIENCE TUTOR procedure are i n the results section. documented in this encounter Results MRSA Screen (12/05/2007 9:40 PM SCIENCE TUTOR) [facility] aitainment Method Time Signature Specimen Nasal MISYS Description Culture Micro No MRSA MISYS isolated Micro Report FINAL MISYS Status 12/07/2007 Specimen Anatomical Collection Method Collection Time Receive d Time (Source) Location / / Volume Laterality 12/05/2007 9:40 PM 8 SCIENCE TUTOR 10:05 PM SCIENCE TUTOR Fredrick Linda MD LAB - BLOOD ORDERABLES Performing Organization Address City/State/ZIP Code Phon e Number MISYS (ABNORMAL) Glucose by meter (12/05/2007 7:25 PM SCIENCE TUTOR) athologist Signature Glucose 125 (H) 60 - 99 MISYS mg/dL Specimen Anatomical Collection Method Collection Time Receive d Time (Source) Location / / Volume Laterality 12/05/2007 7:25 PM 8 7:41 SCIENCE TUTOR AM SCIENCE TUTOR Fredrick Linda MD LAB - BEAKER POCT Performing Organization Address City/[facility] Code Phon e Number MISYS (ABNORMAL) Hemogram differential and platelet (12/05/2007 2:50 PM SCIENCE TUTOR) Component Value Ref Test Analysis Performed At [facility] aitainment Range Method Time Signature MCV 89 78 - 100 MISYS fl MCH 30.5 26.5 - MISYS 33.0 pg MCHC 34.1 31.5 - MISYS 36.5 g/dL RDW 14.6 10.0 - MISYS 15.0 % WBC 14.1 (H) 4.0 - MISYS 11.0 10e9/L RBC Count 5.19 4.4 - MISYS 5.9 10e12/L Hemoglobin 15.8 13.3 - MISYS 17.7 g/dL Hematocrit 46.4 40.0 - MISYS 53.0 % % Neutrophils 44 40 - 75 MISYS % % Lymphocytes 50 (H) 20 - 48 MISYS % % Monocytes 6 0 - 12 % MISYS Platelet Count 403 150 - MISYS 450 10e9/L Absolute 6.2 1.6 - MISYS Neutrophil 8.3 10e9/L Absolute 7.1 (H) 0.8 - MISYS Lymphocytes 5.3 10e9/L Absolute 0.8 0.0 - MISYS Monocytes 1.3 10e9/L Nucleated RBCs 1 (H) 0 /100 MISYS Platelet Normal MISYS Estimate Diff Method Manual MISYS Differential Comment: Slide reviewed by Pathologist CORRECTED ON 12/06 AT 1505: PREVIOUSLY R EPORTED Manual Differential RBC Morphology Consistent with reported results MISYS Reactive Lymphs Present MISYS Specimen Anatomical Collection Method Collection Time Receive d Time (Source) Location / / Volume Laterality 12/05/2007 2:50 PM 8 2:50 SCIENCE TUTOR PM SCIENCE TUTOR Ej James MD LAB - BLOOD ORDERABLES Performing Organization Address City/[facility] Phon e Number MISYS INR (12/05/2007 2:50 PM SCIENCE TUTOR) P athologist Signature INR 0.89 0.86 - 1.14 MISYS Specimen Anatomical Collection Method Collection Time Receive d Time (Source) Location / / Volume Laterality 12/05/2007 2:50 PM 8 2:50 SCIENCE TUTOR PM SCIENCE TUTOR Ej James MD LAB - BLOOD ORDERABLES Performing Organization Address [facility] Code Phon e Number MISYS Partial thromboplastin time (12/05/2007 2:50 PM SCIENCE TUTOR) P athologist Signature PTT 23 22 - 37 sec MISYS Specimen Anatomical Collection Method Collection Time Receive d Time (Source) Location / / Volume Laterality 12/05/2007 2:50 PM 8 2:50 SCIENCE TUTOR PM SCIENCE TUTOR Ej James MD LAB - BLOOD ORDERABLES Performing Organization Address [facility] Phon e Number MISYS Comprehensive metabolic panel (12/05/2007 2:50 PM SCIENCE TUTOR) P athologist Signature Sodium 141 133 - 144 MISYS mmol/L Potassium 5.0 3.4 - 5.3 MISYS mmol/L Chloride 103 94 - 109 MISYS mmol/L Carbon Dioxide 29 20 - 32 MISYS mmol/L Glucose 87 60 - 99 MISYS mg/dL Urea Nitrogen 12 5 - 24 MISYS mg/dL Creatinine 0.97 0.80 - MISYS 1.50 mg/dL GFR Estimate 87 >60 MISYS mL/min/1.7 m2 GFR Estimate If >90 >60 MISYS Black mL/min/1.7 m2 Calcium 9.5 8.5 - 10.4 MISYS mg/dL AST 37 0 - 55 U/L MISYS Protein Total 7.8 6.0 - 8.2 MISYS g/dL Anion Gap 10 6 - 17 MISYS mmol/L Albumin 4.3 3.3 - 4.6 MISYS g/dL ALT 38 0 - 70 U/L MISYS Alkaline 94 40 - 150 MISYS Phosphatase U/L Bilirubin Total 0.8 0.2 - 1.3 MISYS mg/dL Specimen Anatomical Collection Method Collection Time Receive d Time (Source) Location / / Volume Laterality 12/05/2007 2:50 PM 8 2:50 SCIENCE TUTOR PM SCIENCE TUTOR Ej James MD LAB - BLOOD ORDERABLES Performing Organization Address City/[facility]/ZIP Code Phon e Number MISYS Troponin I (12/05/2007 2:50 PM SCIENCE TUTOR) P athologist Signature Troponin I ES <0.012 0.000 - MISYS 0.034 ug/L Comment: Note: New test methodology and reference range started on November 07, 2007. Specimen Anatomical Collection Method Collection Time Receive d Time (Source) Location / / Volume Laterality 12/05/2007 2:50 PM 8 2:50 SCIENCE TUTOR PM SCIENCE TUTOR Ej James MD LAB - BLOOD ORDERABLES Performing Organization Address [facility] Phon e Number MISYS Alcohol ethyl (12/05/2007 2:50 PM SCIENCE TUTOR) P athologist Signature Ethanol g/dL <0.01 0.01 g/dL MISYS Specimen Anatomical Collection Method Collection Time Receive d Time (Source) Location / / Volume Laterality 12/05/2007 2:50 PM 8 2:50 SCIENCE TUTOR PM SCIENCE TUTOR Ej James MD LAB - BLOOD ORDERABLES Performing Organization Address City/[facility]/ZIP Code Phon e Number MISYS documented in this encounter Visit Diagnoses Not on filedocumented in this encounter
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
--- OUTSIDE RECORDS SUMMARY | 2022-10-06 11:32 | XMS_ITS | Encounter Summary ---
:1960 Author Organization [place] Address [address] [place] [address]. [place] [address] Care Team Providers Name Role Phone Unavailable Primary Care Provider Unavailable Encounter Details Date Type Department Care Team Description 05/07/2006 Results Only [facility] Anton Gonzalez, Hospital Results [place] [address] Social History Tobacco Use Types Packs/Day Years Used Date Smoking Tobacco: Never Assessed Sex Assigned at Date Recorded Not on file documented as of this encounter Plan of Treatment Not on filedocumented as of this encounter Procedures Procedure Name Priority Date/Time Associated Diagnosis Comme nts HC CT SOFT TISSUE Routine 05/07/2006 8:53 AM Resu lts for this NECK W/O CONTRAST CDT procedure are in the results section. documented in this encounter Results CT SCAN NECK TISSUE (05/07/2006 8:53 AM CDT) Anatomical Region Laterality Modality Other Specimen (Source) Anatomical Collection Method Collection Time Re ceived Time Location / / Volume Laterality 05/07/2006 8:53 AM CDT Impressions 05/09/2006 6:[address] SCAN OF THE NECK WITH IV CONTRAST ?? HISTORY: Neck swelling. ?? FINDINGS: Parotid glands and submandibul ar glands are normal and symmetric bilaterally. ??No evidence of abscess is noted. ??Bilateral benign oval lymph nodes are noted adjace nt to the jugular vein on the order of 5 x 10 mm in size. ? CONCLUSION: Negative CT scan of the neck . Anton Gonzalez MD SPECIAL IMAGING STUDIES documented in this encounter Visit Diagnoses Not on filedocumented in this encounter
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
--- OUTSIDE RECORDS SUMMARY | 2022-10-06 11:32 | XMS_ITS | Encounter Summary ---
:1960 Author Organization [place] Address [address] [place] [address]. [place] [address] Care Team Providers Name Role Phone Unavailable Primary Care Provider Unavailable Encounter Details Date Type Department Care Team Description 01/13/2006 Historic Results INTERFACED REPORT Vipul Baker [place] [id number] (Wo rk) Social History Tobacco Use Types Packs/Day Years Used Date Smoking Tobacco: Never Assessed Sex Assigned at Date Recorded Not on file documented as of this encounter Plan of Treatment Not on filedocumented as of this encounter Procedures Procedure Name Priority Date/Time Associated Diagnosis Comme [facility] HISTOPATHOLOGY Routine 01/13/2006 12:00 AM Result s for this SMART GRID ENGINEER procedure are i n the results section . documented in this encounter Results Histopathology (01/13/2006 12:00 AM SMART GRID ENGINEER) Component Value Ref Test Analysis Performed At [facility] Range Method Time Signature Copath CASE: [id number] ^ COPATH Report Patient Name: SHASHANK HASTINGS MR#: [id number] Specimen #: [id number] Collected: 01/13/2006 Received: 01/13/2006 Reported: 01/14/2006 16:50 Ordering Phy(s): VIPUL BAKER Additional Phy(s): CARMITA HOPKINS SPECIMEN(S): Colon polyps, transverse FINAL DIAGNOSIS: Colon, transverse, polypectomy - consistent with hyperplasti c polyps (two). Electronically signed out by: Renzo Varela M.D. CLINICAL HISTORY: Left sided abdominal pain. GROSS: The specimen, labeled transverse polyps x2, consists of tw o fragments of orr tissue measuring 0.2 cm in diameter each. ??The speci men is submitted in its entirety. ??MGP/kd MICROSCOPIC: Sections show two small fragments of colonic mucosa. ??They show focal crypt dilatation lined by mature goblet cells. ??The finding s are consistent with hyperplastic polyps. ??No adenoma or maligna ncy are seen. MGP/kd 01-14-06 TESTING LAB LOCATION: [address] ??[id number] COLLECTION SITE: Client: [facility] Location: ENDO (R) Specimen (Source) Anatomical Collection Method Collection Time Re ceived Time Location / / Volume Laterality 01/13/2006 01/14/2006 4:50 PM SMART GRID ENGINEER Vipul Baker MD LAB - COPATH SPECIAL DIAG OR DERABLES Performing Organization Address City/State/ZIP Code Phon e Number COPATH documented in this encounter Visit Diagnoses Not on filedocumented in this encounter
--- OUTSIDE RECORDS SUMMARY | 2022-10-06 11:32 | XMS_ITS | Encounter Summary ---
:1960 Author Organization [facility] Address [address] [place] [address]. [place] [address] Care Team Providers Name Role Phone Unavailable Primary Care Provider Unavailable Encounter Details Date Type Department Care Team Description 12/06/2007 Results Only [facility] Ana Linda MD [facility] RADIO LOGY PA Results [address] [place], [place] [phone] (Wo rk) Social History Tobacco Use Types Packs/Day Years Used Date Smoking Tobacco: Never Assessed Sex Assigned at Date Recorded Not on file documented as of this encounter Plan of Treatment Not on filedocumented as of this encounter Procedures Procedure Name Priority Date/Time Associated Diagnosis Comme nts CT HEAD WO Routine 12/06/2007 2:17 AM Results for this CONTRAST FELLER SEAM OPERATOR procedure are i n the results section. documented in this encounter Results CT SCAN HEAD/BRAIN (12/06/2007 2:17 AM FELLER SEAM OPERATOR) Anatomical Region Laterality Modality Other Specimen (Source) Anatomical Collection Method Collection Time Re ceived Time Location / / Volume Laterality 12/06/2007 2:17 AM FELLER SEAM OPERATOR Impressions 12/06/2007 8:26 PM FELLER SEAM OPERATOR EXAMINATION: HEAD CT WITHOUT CONTRAST on Dec 06, 2007 2:17:00 AM CLINICAL INDICATION: ??Status post throm bolysis. TECHNIQUE: Contiguous 5.0 mm axial image s were obtained from the foramen magnum to the vertex. COMPARISON: Comparisons are made to head CT from 12/05/2007. FINDINGS: There is dense material within the subarachnoid space of the right frontal and parietal lobes which m ay represent a small amount of blood or contrast material having leaked through the blood-brain barrier. The ventricles, sulci, cisterns are norm al for the patient's age. There is no mass, mass effect or hemorrh age. There is no extra-axial fluid collection. There is no evidence o f obstructive hydrocephalus. The visualized paranasal sinuses, mastoi d air cells, bones, globes and orbits are normal. The soft tissues are unremarkable. 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 Fredrick Linda MD [facility]UDIES documented in this encounter Visit Diagnoses Not on filedocumented in this encounter
--- OUTSIDE RECORDS SUMMARY | 2022-10-06 11:32 | XMS_ITS | Encounter Summary ---
:1960 Author Organization [facility] Address [address] [place] [address]. [place] [address] Care Team Providers Name Role Phone Unavailable Primary Care Provider Unavailable Encounter Details Date Type Department Care Team Description 10/06/2006 GI Procedure [facility] Mango Mayer MD None Endoscopy [place] XX RETIRED XXX [address] [facility] [place] [address] [place] [address] [phone] Social History Tobacco Use Types Packs/Day Years Used Date Smoking Tobacco: Never Assessed Sex Assigned at Date Recorded Not on file documented as of this encounter Plan of Treatment Not on filedocumented as of this encounter Procedures Procedure Name Priority Date/Time Associated Diagnosis Comme [facility] UPPER GI ENDOSCOPY Routine 10/06/2006 9:10 AM Res ults for this PERSONNEL RESEARCH PSYCHOLOGIST procedure are i n the results section. documented in this encounter Results UPPER GI ENDOSCOPY (10/06/2006 9:10 AM PERSONNEL RESEARCH PSYCHOLOGIST) Component Value Ref Test Analysis Performed At [facility] Method Time Signature Upper GI Endoscopy RADIOLOGY Endoscopy RESULTS Patient Name: Shashank perrin ?Gender: M ? Procedure Date: 10/06/2006 9 :10 AM ? Date of : 1960 ?Age: 46 ? Admit Type: Outpatient ? Attending MD: Mango Mayer ? Procedure: ?Upper GI endoscopy Indications: ?Dysphagia, recurrent; Chest pain Providers: ?Mango Mayer MD Referring MD: ?? Kameron German MD Medicines: ?Fentanyl 100 mcg IV, Midazolam 2 mg IV, Benzocaine spray Complications: ??No immediate complications Procedure: ?- A [...] ultation. CV Examination: normal. ASA Grade Assessment: ?P1 A normal healthy patient. After reviewing the risks and ?bene fits, the patient was deemed in satisfactory condition to ?undergo the procedure. T he anesthesia plan was to use ?moderate sedation / analgesia (con scious sedation). ?Imme diately prior to administration of medications, the ?katie ent was re-assessed for adequacy to receive sedatives. ?The heart rate, respiratory rate, oxygen saturations, blood ?pres sure, adequacy of pulmonary ventilation, and response to ?care were monitored throughout the procedure. The physical ?stat us of the patient was re-assessed after the procedure. ?Afte r obtaining informed consent, the endoscope was passed ?unde r direct vision. Throughout the procedure, the patient's ?bloo d pressure, pulse, and oxygen saturations were monitored ?cont inuously. The [id number] #[id number] was introduced through ?the mouth, and advanced to the second part of duodenum. The ?uppe r GI endoscopy was accomplished without difficulty. The ?patient tolerated the procedure fair ly well. ? Findings: ? A benign-appearing, i ntrinsic stenosis was found thirty-nine cm from the ? incisors and was traversed. This was succ essfully dilated with a 15 mm ? esophageal balloon dilator. The entire examined stoma ch and ? gastroesophageal junction (on retroflexion) wer e normal. The duodenal ? bulb and 2nd part of the duodenum were normal. ? Impression: ? - Benign-appearing esophageal stricture. D ilated. ?- Normal stomach. ?- Normal duodenal bulb and 2nd part of the duodenum. Recommendation: - Discharge patient to home (ambulatory). ?- Continue present medicines. ?- Ea t slowly and separate the solids from the liquids during ?a meal. ?For example: take the solids first, then drink the fluids. ?-No smoking or chewing tobacco. ?-No gum chewing. ?-Avoid intake of caffeine and minimize the intake of ?carbonated beverages. ?-Do not use straws to drink fluids. ?-Minimize stress. ?Take Gaviscon as needed. ?- Return to primary care provider [place]. ? R Leyla Kothari Mango Mayer MD Signed Date: 10/06/2006 9:42 AM Number of Addenda: 0 I was physically present for the entire viewing portion of t he exam. Note generated on 10/06/2006 9:08 AM Upper GI RADIOLOGY Endoscopy RESULTS Specimen (Source) Anatomical Collection Method Collection Time Re ceived Time Location / / Volume Laterality 10/06/2006 9:10 AM PERSONNEL RESEARCH PSYCHOLOGIST Mango Mayer MD PROCEDURES Performing Organization Address City/State/ZIP Code Phon e Number RADIOLOGY RESULTS documented in this encounter Visit Diagnoses Not on filedocumented in this encounter
--- OUTSIDE RECORDS SUMMARY | 2022-10-06 11:32 | XMS_ITS | Encounter Summary ---
:1960 Author Organization [facility] Address [address] [place] [address]. [place] [address] Care Team Providers Name Role Phone Unavailable Primary Care Provider Unavailable Encounter Details Date Type Department Care Team Description 02/02/2006 Historic Results INTERFACED REPORT Pravin Reinoso MD [facility] [address] [place], [place] [address] (Wo rk) Social History Tobacco Use Types Packs/Day Years Used Date Smoking Tobacco: Never Assessed Sex Assigned at Date Recorded Not on file documented as of this encounter Plan of Treatment Not on filedocumented as of this encounter Procedures Procedure Name Priority Date/Time Associated Diagnosis Comme nts HISTOPATHOLOGY Routine 02/02/2006 12:00 AM Result s for this HEALTH AND NUTRITION SPECIALIST procedure are i n the results section . documented in this encounter Results Histopathology (02/02/2006 12:00 AM HEALTH AND NUTRITION SPECIALIST) Component Value Ref Test Analysis Performed At [facility] Method Time Signature Copath Report CASE: [id number] ^ COPATH Patient Name: SHASHANK HASTINGS MR#: [id number] Specimen #: [id number] Collected: 02/02/2006 Received: 02/02/2006 Reported: 02/03/2006 18:35 Ordering Phy(s): MARK REINOSO SPECIMEN(S): Soft tissue mass, rightpalm FINAL DIAGNOSIS: Tissue from right palm - Consistent with epidermal cyst and reactive stromal changes. Electronically signed out by: Mario Munson M.D. CLINICAL HISTORY: Soft tissue mass, right palm. GROSS: The specimen,labeled right palm mass, consists of a somewh at soft smooth-surfaced nodule with a creamy white color throughout, measuring 5.5 mm in diameter with attached 1.4 cm portion of fibrous t issue. ??The entire specimen is embedded in one cassette. ??COLTON/joseph MICROSCOPIC: Sections of the smooth-surfaced nodule portion of the tissue show that it does represent an epidermal keratinizing cyst. ??A very t hin benign epidermal squamous epithelium is elaborating dense laminated keratin that fills the cyst. ??The adjacent tissue is fibrovascular tissue with some areas of apparent capillary-sized vascular proliferatio n within dense collagen which probably is a reactive change. ??There is some minimal focal lymphocytic aggregates, but no significant chr onic inflammatory changes are seen. ??At the opposite side of the fibrous component, there are a number of eccrine gland structures. COLTON/joseph 02-03-06 TESTING LAB LOCATION: [address] ??[id number] COLLECTION SITE: Client: [facility] Location: SDS (R) Specimen (Source) Anatomical Collection Method Collection Time Re ceived Time Location / / Volume Laterality 02/02/2006 02/03/2006 6:35 PM HEALTH AND NUTRITION SPECIALIST Mark Reinoso MD LAB - COPATH SPECIAL DIAG OR DERABLES Performing Organization Address City/State/ZIP Code Phon e Number COPATH documented in this encounter Visit Diagnoses Not on filedocumented in this encounter
--- OUTSIDE RECORDS SUMMARY | 2022-10-06 11:32 | XMS_ITS | Encounter Summary ---
:1960 Author Organization [facility] Address [facility] [place] [address] Care Team Providers Name Role Phone Kameron German MD Primary Care Provider Encounter Details Date Type Department Care Team Description 12/05/2007 Results Only [facility] Ana Linda MD [facility] RADIO LOGY PA Results [address] [place], [place] [address] [id number] (Wo rk) Social History Tobacco Use Types Packs/Day Years Used Date Smoking Tobacco: Never Assessed Sex Assigned at Date Recorded Not on file documented as of this encounter Plan of Treatment Not on filedocumented as of this encounter Procedures Procedure Name Priority Date/Time Associated Comments Diagnosis IR CAROTID CERVICAL Routine 12/05/2007 7:22 PM Re sults for this ANGIOGRAM RIGHT [employer] procedure ar e in the results section. INT ANGIO ADDITIONAL Routine 12/05/2007 7:22 PM R esults for this SELECTIVE VESSEL [employer]ER procedure a re in the results section. INT ANGIO ADDITIONAL Routine 12/05/2007 7:22 PM R esults for this SELECTIVE VESSEL [employer] procedure a re in the results section. INT ANGIO ADDITIONAL Routine 12/05/2007 7:22 PM R esults for this SELECTIVE VESSEL [employer] procedure a re in the results section. IR TRANSCATH THERAPY Routine 12/05/2007 7:22 PM R esults for this RT [employer]ER procedure are i n the results section. IR ANGIOGRAM THROUGH Routine 12/05/2007 7:22 PM R esults for this CATHETER FOLLOW UP [employer] procedure are in the results section. IR ANGIOGRAM THROUGH Routine 12/05/2007 7:22 PM R esults for this CATHETER FOLLOW UP [employer] procedure are in the results section. IR CAROTID CEREBRAL Routine 12/05/2007 7:22 PM Re sults for this ANGIOGRAM RIGHT [employer] procedure ar e in the results section. documented in this encounter Results INT Embo thrombo recheck (12/05/2007 7:22 PM TRIAL [employer]ER) Anatomical Region Laterality Modality Lower Extremity Other Specimen (Source) Anatomical Collection Method Collection Time Re ceived Time Location / / Volume Laterality 12/05/2007 7:22 PM TRI[employer]ER Impressions 08/08/2012 1:18 PM CDT [facility] ?? CAROTID AND CEREBRAL ANGIOGRAM WITH INTR A-ARTERIAL THROMBOLYSIS FOR ACUTE STROKE ?? CLINICAL INFORMATION: ??A 47-year-old ma n with an history of obesity and hypercholesterolemia, as well as alc ohol abuse. ??The patient experienced the sudden onset of signific ant left sided weakness and left facial droop with dysarthria today while eating lunch with friends sometime between 1:20 p.m. and 1 :30 p.m. ??He ultimately presented to the emergency room, where a n head CT and CT angiogram were obtained. ??CT angiogram does demanshul strate what appears to be occlusion of the distal right M1 segment . ??There is no hemorrhage on the head CT, however because of the larg e vessel occlusion and because he was close to the three hour w indow at that point, we were contacted for possible endovascular inte rvention. ??We were contacted at approximately 4:00 p.m. ??Initial ang iographic images were obtained at approximately 5:00 p.m. ?? OPERATIONS: 1. ??Right common carotid angiogram cent ered over the neck. 2. ??Right internal carotid angiogram. 3. ??Placement of microcatheter into the right middle cerebral artery posterior division microcatheter angiogr am. 4. ??Intra-arterial thrombolysis with t- PA and Integrilin. ?? 5. ??Microcatheter angiogram was perform ed from the right M1 segment, the posterior division of the right midd le cerebral artery, and the anterior division of the right middle ce rebral artery. 6. ??Twenty check angiograms were perfor med through the guide catheter during intra-arterial thrombolysis. ?? PROCEDURE AND FINDINGS: ??The nature of the procedure was discussed in detail with the patient's , as he wa s confused on initial examination. ??The patient was initially examined at approximately 4:35 p.m., and was found to have signifi cant left sided weakness with left facial droop, dysarthria and some c onfusion. ??Strength in both the left upper and lower extremities was approximately 3 out of 5. ?? The patient was oriented to person and p lace, but at times appeared confused as to the time and was dysarthr ic, with a notable left facial droop. ??It was difficult to asse ss sensation. No other deficit was appreciated. ? After obtaining informed consent from th e patient's , using sterile technique and under local anesth esia, the right common femoral artery was directly percutaneous ly accessed with an 18-gauge single-wall needle, and a short 9 [place] sheath was placed. ??A 5 [place] H1 catheter was then advanced in the aortic arch and was placed in the right common carotid arter y. ??Right common carotid angiogram centered over the neck was obt ained, which demonstrates a widely patent right carotid bifurcation. ??The catheter was then advanced selectively into the right inte rnal carotid artery under roadmap guidance, and a right internal c arotid angiogram was obtained. ??This does confirm occlusion of the distal right M1 segment. ??There is filling of the anter ior temporal branch and small perforating arteries as well as numerous lenticulostriate vessels, but no antegrade filling of the anterior or posterior division was seen. ??There was very slow retrograde f illing of the posterior division, which did appear to contain a fairly significant amount of thrombus. ??Under roadmap guidance, the H1 catheter was then exchanged for the Sofie 9 [place] balloon guide cat heter, which was placed into the midcervical right internal carotid a rtery. ??Followup right internal carotid angiogram was obtained, and then under roadmap guidance a Sofie 18L microcatheter was a dvanced over a Transcend wire and placed into the posterior division. ??After obtaining blood return, a gentle microcatheter angiogram was performed at that point which showed patency of the distal porti ons of the posterior division. ??Catheter was then withdrawn proximally, and an additional right M1 segment angiogram was obtained. ??This demonstrates what appears to be thrombus at the MCA bifurc ation, with thrombus extending into both the anterior and pos terior divisions. ?? Additionally, there also appeared to be some spasm in the internal carotid artery related to the balloon gu nakia catheter. ??The patient was therefore given 100 mg of intra-tacos rial nitroglycerin through the guide catheter. ??After the administ ration of nitroglycerin there was excellent flow, and an angiogram was repeated which again confirmed clot at the MCA bifurcation. ? ?Over the Transcend wire, and under roadmap guidance, the microcathete r was advanced into the anterior division, and at approximately 1730 hours t-PA thrombolysis was initiated. ??Two milligrams of intra -arterial t-PA were administered to the M2 segment of the an terior division of the right middle cerebral artery. ??The microcathe ter was then withdrawn into the distal M1 segment, and an additional 2 mg of t-PA was given at 1742 hours. ??At 1744 hours, 1 additiona l milligram of t-PA was administered, again to the right M1 segm ent. ??Also at this point, the patient's weight-based bolus of Integril in was determined and was noted to be 9.5 mg. ??He was therefore g iven 2 mg (1 mL) of intra-arterial Integrilin at 1744 hours. ??Additional t-PA and Integrilin administration was performed as follows: 1 mg to the posterior division at 1750 hours, 1 mg t o the posterior division at 1754 hours, 2 mg t-PA to the posterior d ivision at 1759 hours, and 3 mg t-PA to the posterior division at 180 2 hours. ??It should be noted that during this time both microcatheter and guide catheter angiograms were performed to assess the progress of intra-arterial thrombolysis. ??It became clear at this point in the procedure that the remaining burden of clot was largely within the posterior division, and attention was focused on t he posterior division for the remainder of the procedure. ? At 1807 hours, 4 mg (2 mL) of intra-tacos rial Integrilin were given to the posterior division. ??Additional t-P A and Integrilin administration was given as follows: at 1812 hours 3 mg of t-PA to the posterior division, at 1823 hours 1 mg of t-PA to the posterior division, at 1825 hours 1 mg to the post erior division, at 1826 hours 1 mg of t-PA to the posterior division, at 1829 hours 2 mg of Integrilin to the posterior division, an d finally at 1833 hours 1 mg of t-PA to the posterior division was gi jeanette. ??It should also be noted that microcatheter angiograms were perfo rmed from both positions in both the anterior and posterior division s of the right middle cerebral artery, as well as within the M 1 trunk of the right middle cerebral artery. ??A total of twenty zay ck angiograms were performed through the guide catheter and microcath eter to assess the progress of intra-arterial thrombolysis. ??As not ed above, the clot burden within the anterior division appeared to be much less than that in the posterior division. ??Some mechanica l to and through action of the microcatheter and wire were performed, a nd early check angiograms showed near complete resolution of clot within the anterior division with excellent antegrade filling of ante rior division branches. ?? There was a small area of thrombus withi n a distal M4 segment of one of the posterior branches which persiste d late into the procedure, but then appeared to ultimately resolve. ? At approximately 1812 hours there was si gnificant recanalization of the posterior division, after approximat natalie 15 mg t-PA and 3 mL of Integrilin. ??Antegrade filling of the p osterior division at that point was markedly improved. ??This was also following again significant mechanical manipulation with both the microcatheter and wire. ??However, subsequent followup zay ck angiograms showed some reaccumulation of clot primarily within the M2 segment and the proximal M3 segment of the posterior div ision. ??Additional amounts of t-PA were then given at that point, for a total of 19 mg t-PA, and 4 mL (8 mg) of Integrilin intra-arterially . ??Final angiograms did show an abnormal structure coursing along a p arallel path with the posterior division. ??The structure was of uncertain significance, but may have reflected early venous filling. ??Because of this the procedure was terminated at that point. ??Microcatheter was withdrawn, and final angiograms were obtained in wo rking projections and in a full field of view. ??These again showed near complete resolution of thrombus with excellent antegrade fillin g of both the anterior and posterior divisions. ??A few minimal are as of distal thrombus are seen in M4 cortical branches, primarily in th e posterior division. ??The remainder of the right anterior intracra nial circulation is widely patient. ? The microcatheter and guide catheter wer e then removed. ??The sheath was sutured into place. ??The patient wa s examined at that point and was noted to have improved strength, wit h 4+ strength in the upper extremity and 4 out of 5 strength in the lower extremity. ??His facial droop was largely resolved, and his dysa rthria had significantly improved. ??In addition, he did appear t o be oriented to person, place and time. ??His vital signs remained sta ble throughout the procedure. ?? A sheath, as above, was sutured into zan ce, and will be removed in the morning. ??The patient will also be taken for a STAT head CT to evaluate for intracranial hemorrhage. ? PHYSICIANS: ??Two attending physicians w ere present and scrubbed for the procedure, Dr. Fredrick Linda and Dr Joe Johnson. ?? TOTAL FLUOROSCOPY TIME: ??49.1 minutes. ?? TOTAL CONTRAST: ??180 mL Optiray. ?? TOTAL SEDATION TIME: ??2 hours. ?? MEDICATIONS: 1. ??Versed 3 mg IV. 2. ??Fentanyl 200 mcg IV. 3. ??t-PA 19 mg IA. 4. ??Integrilin 4 mL IA. 5. ??Nitroglycerin 100 mcg IA. ?? ESTIMATED BLOOD LOSS: ??Minimal. ?? IMPRESSION: ??Thrombus within the distal M1 segment of the right middle cerebral artery, occluding antegr miky flow into both the anterior and posterior divisions, and ca using significant left sided weakness, left sided facial droop, dysar thria and confusion in a 47-year-old man with an history of obesi ty and hypercholesterolemia. ?? This was treated with 19 mg of intra-art erial t-PA and 4 mL of intra-arterial Integrilin. ??Final angio grams showed excellent antegrade flow into both the anterior an d posterior divisions, with only very minimal areas of distal cortic al thrombus and no major residual branch occlusions. ??The patien t has also significantly clinically improved at the end of the pr ocedure, with near normal strength and only mild residual facial d devang and dysarthria. ? Fredrick Linda MD IMG IR ORDERABLES INT Embo thrombo recheck (12/05/2007 7:22 PM TRIAL [employer]ER) Anatomical Region Laterality Modality Lower Extremity Other Specimen (Source) Anatomical Collection Method Collection Time Re ceived Time Location / / Volume Laterality 12/05/2007 7:22 PM TRIAL [employer]ER Impressions 08/08/2012 1:18 PM CDT [facility] ?? CAROTID AND CEREBRAL ANGIOGRAM WITH INTR A-ARTERIAL THROMBOLYSIS FOR ACUTE STROKE ?? CLINICAL INFORMATION: ??A 47-year-old ma n with an history of obesity and hypercholesterolemia, as well as alc ohol abuse. ??The patient experienced the sudden onset of signific ant left sided weakness and left facial droop with dysarthria today while eating lunch with friends sometime between 1:20 p.m. and 1 :30 p.m. ??He ultimately presented to the emergency room, where a n head CT and CT angiogram were obtained. ??CT angiogram does demon strate what appears to be occlusion of the distal right M1 segment . ??There is no hemorrhage on the head CT, however because of the larg e vessel occlusion and because he was close to the three hour w indow at that point, we were contacted for possible endovascular inte rvention. ??We were contacted at approximately 4:00 p.m. ??Initial ang iographic images were obtained at approximately 5:00 p.m. ?? OPERATIONS: 1. ??Right common carotid angiogram cent ered over the neck. 2. ??Right internal carotid angiogram. 3. ??Placement of microcatheter into the right middle cerebral artery posterior division microcatheter angiogr am. 4. ??Intra-arterial thrombolysis with t- PA and Integrilin. ?? 5. ??Microcatheter angiogram was perform ed from the right M1 segment, the posterior division of the right midd le cerebral artery, and the anterior division of the right middle ce rebral artery. 6. ??Twenty check angiograms were perfor med through the guide catheter during intra-arterial thrombolysis. ?? PROCEDURE AND FINDINGS: ??The nature of the procedure was discussed in detail with the patient's , as he wa s confused on initial examination. ??The patient was initially examined at approximately 4:35 p.m., and was found to have signifi cant left sided weakness with left facial droop, dysarthria and some c onfusion. ??Strength in both the left upper and lower extremities was approximately 3 out of 5. ?? The patient was oriented to person and p lace, but at times appeared confused as to the time and was dysarthr ic, with a notable left facial droop. ??It was difficult to asse ss sensation. No other deficit was appreciated. ? After obtaining informed consent from th e patient's , using sterile technique and under local anesth esia, the right common femoral artery was directly percutaneous ly accessed with an 18-gauge single-wall needle, and a short 9 [place] sheath was placed. ??A 5 [place] H1 catheter was then advanced in the aortic arch and was placed in the right common carotid arter y. ??Right common carotid angiogram centered over the neck was obt ained, which demonstrates a widely patent right carotid bifurcation. ??The catheter was then advanced selectively into the right inte rnal carotid artery under roadmap guidance, and a right internal c arotid angiogram was obtained. ??This does confirm occlusion of the distal right M1 segment. ??There is filling of the anter ior temporal branch and small perforating arteries as well as numerous lenticulostriate vessels, but no antegrade filling of the anterior or posterior division was seen. ??There was very slow retrograde f illing of the posterior division, which did appear to contain a fairly significant amount of thrombus. ??Under roadmap guidance, the H1 catheter was then exchanged for the Sofie 9 [place] balloon guide cat heter, which was placed into the midcervical right internal carotid a rtery. ??Followup right internal carotid angiogram was obtained, and then under roadmap guidance a Sofie 18L microcatheter was a dvanced over a Transcend wire and placed into the posterior division. ??After obtaining blood return, a gentle microcatheter angiogram was performed at that point which showed patency of the distal porti ons of the posterior division. ??Catheter was then withdrawn proximally, and an additional right M1 segment angiogram was obtained. ??This demonstrates what appears to be thrombus at the MCA bifurc ation, with thrombus extending into both the anterior and pos terior divisions. ?? Additionally, there also appeared to be some spasm in the internal carotid artery related to the balloon gu nakia catheter. ??The patient was therefore given 100 mg of intra-tacos rial nitroglycerin through the guide catheter. ??After the administ ration of nitroglycerin there was excellent flow, and an angiogram was repeated which again confirmed clot at the MCA bifurcation. ? ?Over the Transcend wire, and under roadmap guidance, the microcathete r was advanced into the anterior division, and at approximately 1730 hours t-PA thrombolysis was initiated. ??Two milligrams of intra -arterial t-PA were administered to the M2 segment of the an terior division of the right middle cerebral artery. ??The microcathe ter was then withdrawn into the distal M1 segment, and an additional 2 mg of t-PA was given at 1742 hours. ??At 1744 hours, 1 additiona l milligram of t-PA was administered, again to the right M1 segm ent. ??Also at this point, the patient's weight-based bolus of Integril in was determined and was noted to be 9.5 mg. ??He was therefore g iven 2 mg (1 mL) of intra-arterial Integrilin at 1744 hours. ??Additional t-PA and Integrilin administration was performed as follows: 1 mg to the posterior division at 1750 hours, 1 mg t o the posterior division at 1754 hours, 2 mg t-PA to the posterior d ivision at 1759 hours, and 3 mg t-PA to the posterior division at 180 2 hours. ??It should be noted that during this time both microcatheter and guide catheter angiograms were performed to assess the progress of intra-arterial thrombolysis. ??It became clear at this point in the procedure that the remaining burden of clot was largely within the posterior division, and attention was focused on t he posterior division for the remainder of the procedure. ? At 1807 hours, 4 mg (2 mL) of intra-tacos rial Integrilin were given to the posterior division. ??Additional t-P A and Integrilin administration was given as follows: at 1812 hours 3 mg of t-PA to the posterior division, at 1823 hours 1 mg of t-PA to the posterior division, at 1825 hours 1 mg to the post erior division, at 1826 hours 1 mg of t-PA to the posterior division, at 1829 hours 2 mg of Integrilin to the posterior division, an d finally at 1833 hours 1 mg of t-PA to the posterior division was gi jeanette. ??It should also be noted that microcatheter angiograms were perfo rmed from both positions in both the anterior and posterior division s of the right middle cerebral artery, as well as within the M 1 trunk of the right middle cerebral artery. ??A total of twenty zay ck angiograms were performed through the guide catheter and microcath eter to assess the progress of intra-arterial thrombolysis. ??As not ed above, the clot burden within the anterior division appeared to be much less than that in the posterior division. ??Some mechanica l to and through action of the microcatheter and wire were performed, a nd early check angiograms showed near complete resolution of clot within the anterior division with excellent antegrade filling of ante rior division branches. ?? There was a small area of thrombus withi n a distal M4 segment of one of the posterior branches which persiste d late into the procedure, but then appeared to ultimately resolve. ? At approximately 1812 hours there was si gnificant recanalization of the posterior division, after approximat natalie 15 mg t-PA and 3 mL of Integrilin. ??Antegrade filling of the p osterior division at that point was markedly improved. ??This was also following again significant mechanical manipulation with both the microcatheter and wire. ??However, subsequent followup zay ck angiograms showed some reaccumulation of clot primarily within the M2 segment and the proximal M3 segment of the posterior div ision. ??Additional amounts of t-PA were then given at that point, for a total of 19 mg t-PA, and 4 mL (8 mg) of Integrilin intra-arterially . ??Final angiograms did show an abnormal structure coursing along a p arallel path with the posterior division. ??The structure was of uncertain significance, but may have reflected early venous filling. ??Because of this the procedure was terminated at that point. ??Microcatheter was withdrawn, and final angiograms were obtained in wo rking projections and in a full field of view. ??These again showed near complete resolution of thrombus with excellent antegrade fillin g of both the anterior and posterior divisions. ??A few minimal are as of distal thrombus are seen in M4 cortical branches, primarily in th e posterior division. ??The remainder of the right anterior intracra nial circulation is widely patient. ? The microcatheter and guide catheter wer e then removed. ??The sheath was sutured into place. ??The patient wa s examined at that point and was noted to have improved strength, wit h 4+ strength in the upper extremity and 4 out of 5 strength in the lower extremity. ??His facial droop was largely resolved, and his dysa rthria had significantly improved. ??In addition, he did appear t o be oriented to person, place and time. ??His vital signs remained sta ble throughout the procedure. ?? A sheath, as above, was sutured into zan ce, and will be removed in the morning. ??The patient will also be taken for a STAT head CT to evaluate for intracranial hemorrhage. ? PHYSICIANS: ??Two attending physicians w ere present and scrubbed for the procedure, Dr. Fredrick Linda and Dr Joe Johnson. ?? TOTAL FLUOROSCOPY TIME: ??49.1 minutes. ?? TOTAL CONTRAST: ??180 mL Optiray. ?? TOTAL SEDATION TIME: ??2 hours. ?? MEDICATIONS: 1. ??Versed 3 mg IV. 2. ??Fentanyl 200 mcg IV. 3. ??t-PA 19 mg IA. 4. ??Integrilin 4 mL IA. 5. ??Nitroglycerin 100 mcg IA. ?? ESTIMATED BLOOD LOSS: ??Minimal. ?? IMPRESSION: ??Thrombus within the distal M1 segment of the right middle cerebral artery, occluding antegr miky flow into both the anterior and posterior divisions, and ca using significant left sided weakness, left sided facial droop, dysar thria and confusion in a 47-year-old man with an history of obesi ty and hypercholesterolemia. ?? This was treated with 19 mg of intra-art erial t-PA and 4 mL of intra-arterial Integrilin. ??Final angio grams showed excellent antegrade flow into both the anterior an d posterior divisions, with only very minimal areas of distal cortic al thrombus and no major residual branch occlusions. ??The patien t has also significantly clinically improved at the end of the pr ocedure, with near normal strength and only mild residual facial d devang and dysarthria. ? Fredrick Linda MD IMG IR ORDERABLES INT Transcath therapy rt (12/05/2007 7:22 PM TRIAL [employer]ER) Anatomical Region Laterality Modality Vascular Other Specimen (Source) Anatomical Collection Method Collection Time Re ceived Time Location / / Volume Laterality 12/05/2007 7:22 PM TRIAL [employer]ER Impressions 08/08/2012 1:18 PM CDT [facility] ?? CAROTID AND CEREBRAL ANGIOGRAM WITH INTR A-ARTERIAL THROMBOLYSIS FOR ACUTE STROKE ?? CLINICAL INFORMATION: ??A 47-year-old ma n with an history of obesity and hypercholesterolemia, as well as alc ohol abuse. ??The patient experienced the sudden onset of signific ant left sided weakness and left facial droop with dysarthria today while eating lunch with friends sometime between 1:20 p.m. and 1 :30 p.m. ??He ultimately presented to the emergency room, where a n head CT and CT angiogram were obtained. ??CT angiogram does demon strate what appears to be occlusion of the distal right M1 segment . ??There is no hemorrhage on the head CT, however because of the larg e vessel occlusion and because he was close to the three hour w indow at that point, we were contacted for possible endovascular inte rvention. ??We were contacted at approximately 4:00 p.m. ??Initial ang iographic images were obtained at approximately 5:00 p.m. ?? OPERATIONS: 1. ??Right common carotid angiogram cent ered over the neck. 2. ??Right internal carotid angiogram. 3. ??Placement of microcatheter into the right middle cerebral artery posterior division microcatheter angiogr am. 4. ??Intra-arterial thrombolysis with t- PA and Integrilin. ?? 5. ??Microcatheter angiogram was perform ed from the right M1 segment, the posterior division of the right midd le cerebral artery, and the anterior division of the right middle ce rebral artery. 6. ??Twenty check angiograms were perfor med through the guide catheter during intra-arterial thrombolysis. ?? PROCEDURE AND FINDINGS: ??The nature of the procedure was discussed in detail with the patient's , as he wa s confused on initial examination. ??The patient was initially examined at approximately 4:35 p.m., and was found to have signifi cant left sided weakness with left facial droop, dysarthria and some c onfusion. ??Strength in both the left upper and lower extremities was approximately 3 out of 5. ?? The patient was oriented to person and p lace, but at times appeared confused as to the time and was dysarthr ic, with a notable left facial droop. ??It was difficult to asse ss sensation. No other deficit was appreciated. ? After obtaining informed consent from th e patient's , using sterile technique and under local anesth esia, the right common femoral artery was directly percutaneous ly accessed with an 18-gauge single-wall needle, and a short 9 [place] sheath was placed. ??A 5 [place] H1 catheter was then advanced in the aortic arch and was placed in the right common carotid arter y. ??Right common carotid angiogram centered over the neck was obt ained, which demonstrates a widely patent right carotid bifurcation. ??The catheter was then advanced selectively into the right inte rnal carotid artery under roadmap guidance, and a right internal c arotid angiogram was obtained. ??This does confirm occlusion of the distal right M1 segment. ??There is filling of the anter ior temporal branch and small perforating arteries as well as numerous lenticulostriate vessels, but no antegrade filling of the anterior or posterior division was seen. ??There was very slow retrograde f illing of the posterior division, which did appear to contain a fairly significant amount of thrombus. ??Under roadmap guidance, the H1 catheter was then exchanged for the Sofie 9 [place] balloon guide cat heter, which was placed into the midcervical right internal carotid a rtery. ??Followup right internal carotid angiogram was obtained, and then under roadmap guidance a Sofie 18L microcatheter was a dvanced over a Transcend wire and placed into the posterior division. ??After obtaining blood return, a gentle microcatheter angiogram was performed at that point which showed patency of the distal porti ons of the posterior division. ??Catheter was then withdrawn proximally, and an additional right M1 segment angiogram was obtained. ??This demonstrates what appears to be thrombus at the MCA bifurc ation, with thrombus extending into both the anterior and pos terior divisions. ?? Additionally, there also appeared to be some spasm in the internal carotid artery related to the balloon gu nakia catheter. ??The patient was therefore given 100 mg of intra-tacos rial nitroglycerin through the guide catheter. ??After the administ ration of nitroglycerin there was excellent flow, and an angiogram was repeated which again confirmed clot at the MCA bifurcation. ? ?Over the Transcend wire, and under roadmap guidance, the microcathete r was advanced into the anterior division, and at approximately 1730 hours t-PA thrombolysis was initiated. ??Two milligrams of intra -arterial t-PA were administered to the M2 segment of the an terior division of the right middle cerebral artery. ??The microcathe ter was then withdrawn into the distal M1 segment, and an additional 2 mg of t-PA was given at 1742 hours. ??At 1744 hours, 1 additiona l milligram of t-PA was administered, again to the right M1 segm ent. ??Also at this point, the patient's weight-based bolus of Integril in was determined and was noted to be 9.5 mg. ??He was therefore g iven 2 mg (1 mL) of intra-arterial Integrilin at 1744 hours. ??Additional t-PA and Integrilin administration was performed as follows: 1 mg to the posterior division at 1750 hours, 1 mg t o the posterior division at 1754 hours, 2 mg t-PA to the posterior d ivision at 1759 hours, and 3 mg t-PA to the posterior division at 180 2 hours. ??It should be noted that during this time both microcatheter and guide catheter angiograms were performed to assess the progress of intra-arterial thrombolysis. ??It became clear at this point in the procedure that the remaining burden of clot was largely within the posterior division, and attention was focused on t he posterior division for the remainder of the procedure. ? At 1807 hours, 4 mg (2 mL) of intra-tacos rial Integrilin were given to the posterior division. ??Additional t-P A and Integrilin administration was given as follows: at 1812 hours 3 mg of t-PA to the posterior division, at 1823 hours 1 mg of t-PA to the posterior division, at 1825 hours 1 mg to the post erior division, at 1826 hours 1 mg of t-PA to the posterior division, at 1829 hours 2 mg of Integrilin to the posterior division, an d finally at 1833 hours 1 mg of t-PA to the posterior division was gi jeanette. ??It should also be noted that microcatheter angiograms were perfo rmed from both positions in both the anterior and posterior division s of the right middle cerebral artery, as well as within the M 1 trunk of the right middle cerebral artery. ??A total of twenty zay ck angiograms were performed through the guide catheter and microcath eter to assess the progress of intra-arterial thrombolysis. ??As not ed above, the clot burden within the anterior division appeared to be much less than that in the posterior division. ??Some mechanica l to and through action of the microcatheter and wire were performed, a nd early check angiograms showed near complete resolution of clot within the anterior division with excellent antegrade filling of ante rior division branches. ?? There was a small area of thrombus withi n a distal M4 segment of one of the posterior branches which persiste d late into the procedure, but then appeared to ultimately resolve. ? At approximately 1812 hours there was si gnificant recanalization of the posterior division, after approximat natalie 15 mg t-PA and 3 mL of Integrilin. ??Antegrade filling of the p osterior division at that point was markedly improved. ??This was also following again significant mechanical manipulation with both the microcatheter and wire. ??However, subsequent followup zay ck angiograms showed some reaccumulation of clot primarily within the M2 segment and the proximal M3 segment of the posterior div ision. ??Additional amounts of t-PA were then given at that point, for a total of 19 mg t-PA, and 4 mL (8 mg) of Integrilin intra-arterially . ??Final angiograms did show an abnormal structure coursing along a p arallel path with the posterior division. ??The structure was of uncertain significance, but may have reflected early venous filling. ??Because of this the procedure was terminated at that point. ??Microcatheter was withdrawn, and final angiograms were obtained in wo rking projections and in a full field of view. ??These again showed near complete resolution of thrombus with excellent antegrade fillin g of both the anterior and posterior divisions. ??A few minimal are as of distal thrombus are seen in M4 cortical branches, primarily in th e posterior division. ??The remainder of the right anterior intracra nial circulation is widely patient. ? The microcatheter and guide catheter wer e then removed. ??The sheath was sutured into place. ??The patient wa s examined at that point and was noted to have improved strength, wit h 4+ strength in the upper extremity and 4 out of 5 strength in the lower extremity. ??His facial droop was largely resolved, and his dysa rthria had significantly improved. ??In addition, he did appear t o be oriented to person, place and time. ??His vital signs remained sta ble throughout the procedure. ?? A sheath, as above, was sutured into zan ce, and will be removed in the morning. ??The patient will also be taken for a STAT head CT to evaluate for intracranial hemorrhage. ? PHYSICIANS: ??Two attending physicians w ere present and scrubbed for the procedure, Dr. Fredrick Linda and Dr Joe Johnson. ?? TOTAL FLUOROSCOPY TIME: ??49.1 minutes. ?? TOTAL CONTRAST: ??180 mL Optiray. ?? TOTAL SEDATION TIME: ??2 hours. ?? MEDICATIONS: 1. ??Versed 3 mg IV. 2. ??Fentanyl 200 mcg IV. 3. ??t-PA 19 mg IA. 4. ??Integrilin 4 mL IA. 5. ??Nitroglycerin 100 mcg IA. ?? ESTIMATED BLOOD LOSS: ??Minimal. ?? IMPRESSION: ??Thrombus within the distal M1 segment of the right middle cerebral artery, occluding antegr miky flow into both the anterior and posterior divisions, and ca using significant left sided weakness, left sided facial droop, dysar thria and confusion in a 47-year-old man with an history of obesi ty and hypercholesterolemia. ?? This was treated with 19 mg of intra-art erial t-PA and 4 mL of intra-arterial Integrilin. ??Final angio grams showed excellent antegrade flow into both the anterior an d posterior divisions, with only very minimal areas of distal cortic al thrombus and no major residual branch occlusions. ??The patien t has also significantly clinically improved at the end of the pr ocedure, with near normal strength and only mild residual facial d devang and dysarthria. ? Fredrick Linda MD IMG IR ORDERABLES INT B[employer]IAL [employer] INST[employer]ER each additional peripheral artery (12/05/2007 7:22 PM TRIAL [employer]ER) Anatomical Region Laterality Modality Vascular Other Specimen (Source) Anatomical Collection Method Collection Time Re ceived Time Location / / Volume Laterality 12/05/2007 7:22 PM [employer]AL [employer]ER Impressions 08/08/2012 1:18 PM CDT [facility] ?? CAROTID AND CEREBRAL ANGIOGRAM WITH INTR A-ARTERIAL THROMBOLYSIS FOR ACUTE STROKE ?? CLINICAL INFORMATION: ??A 47-year-old ma n with an history of obesity and hypercholesterolemia, as well as alc ohol abuse. ??The patient experienced the sudden onset of signific ant left sided weakness and left facial droop with dysarthria today while eating lunch with friends sometime between 1:20 p.m. and 1 :30 p.m. ??He ultimately presented to the emergency room, where a n head CT and CT angiogram were obtained. ??CT angiogram does demon strate what appears to be occlusion of the distal right M1 segment . ??There is no hemorrhage on the head CT, however because of the larg e vessel occlusion and because he was close to the three hour w indow at that point, we were contacted for possible endovascular inte rvention. ??We were contacted at approximately 4:00 p.m. ??Initial ang iographic images were obtained at approximately 5:00 p.m. ?? OPERATIONS: 1. ??Right common carotid angiogram cent ered over the neck. 2. ??Right internal carotid angiogram. 3. ??Placement of microcatheter into the right middle cerebral artery posterior division microcatheter angiogr am. 4. ??Intra-arterial thrombolysis with t- PA and Integrilin. ?? 5. ??Microcatheter angiogram was perform ed from the right M1 segment, the posterior division of the right midd le cerebral artery, and the anterior division of the right middle ce rebral artery. 6. ??Twenty check angiograms were perfor med through the guide catheter during intra-arterial thrombolysis. ?? PROCEDURE AND FINDINGS: ??The nature of the procedure was discussed in detail with the patient's , as he wa s confused on initial examination. ??The patient was initially examined at approximately 4:35 p.m., and was found to have signifi cant left sided weakness with left facial droop, dysarthria and some c onfusion. ??Strength in both the left upper and lower extremities was approximately 3 out of 5. ?? The patient was oriented to person and p lace, but at times appeared confused as to the time and was dysarthr ic, with a notable left facial droop. ??It was difficult to asse ss sensation. No other deficit was appreciated. ? After obtaining informed consent from th e patient's , using sterile technique and under local anesth esia, the right common femoral artery was directly percutaneous ly accessed with an 18-gauge single-wall needle, and a short 9 [place] sheath was placed. ??A 5 [place] H1 catheter was then advanced in the aortic arch and was placed in the right common carotid arter y. ??Right common carotid angiogram centered over the neck was obt ained, which demonstrates a widely patent right carotid bifurcation. ??The catheter was then advanced selectively into the right inte rnal carotid artery under roadmap guidance, and a right internal c arotid angiogram was obtained. ??This does confirm occlusion of the distal right M1 segment. ??There is filling of the anter ior temporal branch and small perforating arteries as well as numerous lenticulostriate vessels, but no antegrade filling of the anterior or posterior division was seen. ??There was very slow retrograde f illing of the posterior division, which did appear to contain a fairly significant amount of thrombus. ??Under roadmap guidance, the H1 catheter was then exchanged for the Sofie 9 [place] balloon guide cat heter, which was placed into the midcervical right internal carotid a rtery. ??Followup right internal carotid angiogram was obtained, and then under roadmap guidance a Sofie 18L microcatheter was a dvanced over a Transcend wire and placed into the posterior division. ??After obtaining blood return, a gentle microcatheter angiogram was performed at that point which showed patency of the distal porti ons of the posterior division. ??Catheter was then withdrawn proximally, and an additional right M1 segment angiogram was obtained. ??This demonstrates what appears to be thrombus at the MCA bifurc ation, with thrombus extending into both the anterior and pos terior divisions. ?? Additionally, there also appeared to be some spasm in the internal carotid artery related to the balloon gu nakia catheter. ??The patient was therefore given 100 mg of intra-tacos rial nitroglycerin through the guide catheter. ??After the administ ration of nitroglycerin there was excellent flow, and an angiogram was repeated which again confirmed clot at the MCA bifurcation. ? ?Over the Transcend wire, and under roadmap guidance, the microcathete r was advanced into the anterior division, and at approximately 1730 hours t-PA thrombolysis was initiated. ??Two milligrams of intra -arterial t-PA were administered to the M2 segment of the an terior division of the right middle cerebral artery. ??The microcathe ter was then withdrawn into the distal M1 segment, and an additional 2 mg of t-PA was given at 1742 hours. ??At 1744 hours, 1 additiona l milligram of t-PA was administered, again to the right M1 segm ent. ??Also at this point, the patient's weight-based bolus of Integril in was determined and was noted to be 9.5 mg. ??He was therefore g iven 2 mg (1 mL) of intra-arterial Integrilin at 1744 hours. ??Additional t-PA and Integrilin administration was performed as follows: 1 mg to the posterior division at 1750 hours, 1 mg t o the posterior division at 1754 hours, 2 mg t-PA to the posterior d ivision at 1759 hours, and 3 mg t-PA to the posterior division at 180 2 hours. ??It should be noted that during this time both microcatheter and guide catheter angiograms were performed to assess the progress of intra-arterial thrombolysis. ??It became clear at this point in the procedure that the remaining burden of clot was largely within the posterior division, and attention was focused on t he posterior division for the remainder of the procedure. ? At 1807 hours, 4 mg (2 mL) of intra-tacos rial Integrilin were given to the posterior division. ??Additional t-P A and Integrilin administration was given as follows: at 1812 hours 3 mg of t-PA to the posterior division, at 1823 hours 1 mg of t-PA to the posterior division, at 1825 hours 1 mg to the post erior division, at 1826 hours 1 mg of t-PA to the posterior division, at 1829 hours 2 mg of Integrilin to the posterior division, an d finally at 1833 hours 1 mg of t-PA to the posterior division was gi jeanette. ??It should also be noted that microcatheter angiograms were perfo rmed from both positions in both the anterior and posterior division s of the right middle cerebral artery, as well as within the M 1 trunk of the right middle cerebral artery. ??A total of twenty zay ck angiograms were performed through the guide catheter and microcath eter to assess the progress of intra-arterial thrombolysis. ??As not ed above, the clot burden within the anterior division appeared to be much less than that in the posterior division. ??Some mechanica l to and through action of the microcatheter and wire were performed, a nd early check angiograms showed near complete resolution of clot within the anterior division with excellent antegrade filling of ante rior division branches. ?? There was a small area of thrombus withi n a distal M4 segment of one of the posterior branches which persiste d late into the procedure, but then appeared to ultimately resolve. ? At approximately 1812 hours there was si gnificant recanalization of the posterior division, after approximat natalie 15 mg t-PA and 3 mL of Integrilin. ??Antegrade filling of the p osterior division at that point was markedly improved. ??This was also following again significant mechanical manipulation with both the microcatheter and wire. ??However, subsequent followup zay ck angiograms showed some reaccumulation of clot primarily within the M2 segment and the proximal M3 segment of the posterior div ision. ??Additional amounts of t-PA were then given at that point, for a total of 19 mg t-PA, and 4 mL (8 mg) of Integrilin intra-arterially . ??Final angiograms did show an abnormal structure coursing along a p arallel path with the posterior division. ??The structure was of uncertain significance, but may have reflected early venous filling. ??Because of this the procedure was terminated at that point. ??Microcatheter was withdrawn, and final angiograms were obtained in wo rking projections and in a full field of view. ??These again showed near complete resolution of thrombus with excellent antegrade fillin g of both the anterior and posterior divisions. ??A few minimal are as of distal thrombus are seen in M4 cortical branches, primarily in th e posterior division. ??The remainder of the right anterior intracra nial circulation is widely patient. ? The microcatheter and guide catheter wer e then removed. ??The sheath was sutured into place. ??The patient wa s examined at that point and was noted to have improved strength, wit h 4+ strength in the upper extremity and 4 out of 5 strength in the lower extremity. ??His facial droop was largely resolved, and his dysa rthria had significantly improved. ??In addition, he did appear t o be oriented to person, place and time. ??His vital signs remained sta ble throughout the procedure. ?? A sheath, as above, was sutured into zan ce, and will be removed in the morning. ??The patient will also be taken for a STAT head CT to evaluate for intracranial hemorrhage. ? PHYSICIANS: ??Two attending physicians w ere present and scrubbed for the procedure, Dr. Fredrick Lidna and Dr Joe Johnson. ?? TOTAL FLUOROSCOPY TIME: ??49.1 minutes. ?? TOTAL CONTRAST: ??180 mL Optiray. ?? TOTAL SEDATION TIME: ??2 hours. ?? MEDICATIONS: 1. ??Versed 3 mg IV. 2. ??Fentanyl 200 mcg IV. 3. ??t-PA 19 mg IA. 4. ??Integrilin 4 mL IA. 5. ??Nitroglycerin 100 mcg IA. ?? ESTIMATED BLOOD LOSS: ??Minimal. ?? IMPRESSION: ??Thrombus within the distal M1 segment of the right middle cerebral artery, occluding antegr miky flow into both the anterior and posterior divisions, and ca using significant left sided weakness, left sided facial droop, dysar thria and confusion in a 47-year-old man with an history of obesi ty and hypercholesterolemia. ?? This was treated with 19 mg of intra-art erial t-PA and 4 mL of intra-arterial Integrilin. ??Final angio grams showed excellent antegrade flow into both the anterior an d posterior divisions, with only very minimal areas of distal cortic al thrombus and no major residual branch occlusions. ??The patien t has also significantly clinically improved at the end of the pr ocedure, with near normal strength and only mild residual facial d devang and dysarthria. ? Fredrick Linda MD IMG IR ORDERABLES INT [employer] each additional peripheral artery (12/05/2007 7:22 PM TRIAL [employer]ER) Anatomical Region Laterality Modality Vascular Other Specimen (Source) Anatomical Collection Method Collection Time Re ceived Time Location / / Volume Laterality 12/05/2007 7:22 PM [employer] Impressions 08/08/2012 1:18 PM CDT [facility] ?? CAROTID AND CEREBRAL ANGIOGRAM WITH INTR A-ARTERIAL THROMBOLYSIS FOR ACUTE STROKE ?? CLINICAL INFORMATION: ??A 47-year-old ma n with an history of obesity and hypercholesterolemia, as well as alc ohol abuse. ??The patient experienced the sudden onset of signific ant left sided weakness and left facial droop with dysarthria today while eating lunch with friends sometime between 1:20 p.m. and 1 :30 p.m. ??He ultimately presented to the emergency room, where a n head CT and CT angiogram were obtained. ??CT angiogram does demon strate what appears to be occlusion of the distal right M1 segment . ??There is no hemorrhage on the head CT, however because of the larg e vessel occlusion and because he was close to the three hour w indow at that point, we were contacted for possible endovascular inte rvention. ??We were contacted at approximately 4:00 p.m. ??Initial ang iographic images were obtained at approximately 5:00 p.m. ?? OPERATIONS: 1. ??Right common carotid angiogram cent ered over the neck. 2. ??Right internal carotid angiogram. 3. ??Placement of microcatheter into the right middle cerebral artery posterior division microcatheter angiogr am. 4. ??Intra-arterial thrombolysis with t- PA and Integrilin. ?? 5. ??Microcatheter angiogram was perform ed from the right M1 segment, the posterior division of the right midd le cerebral artery, and the anterior division of the right middle ce rebral artery. 6. ??Twenty check angiograms were perfor med through the guide catheter during intra-arterial thrombolysis. ?? PROCEDURE AND FINDINGS: ??The nature of the procedure was discussed in detail with the patient's , as he wa s confused on initial examination. ??The patient was initially examined at approximately 4:35 p.m., and was found to have signifi cant left sided weakness with left facial droop, dysarthria and some c onfusion. ??Strength in both the left upper and lower extremities was approximately 3 out of 5. ?? The patient was oriented to person and p lace, but at times appeared confused as to the time and was dysarthr ic, with a notable left facial droop. ??It was difficult to asse ss sensation. No other deficit was appreciated. ? After obtaining informed consent from th e patient's , using sterile technique and under local anesth esia, the right common femoral artery was directly percutaneous ly accessed with an 18-gauge single-wall needle, and a short 9 [place] sheath was placed. ??A 5 [place] H1 catheter was then advanced in the aortic arch and was placed in the right common carotid arter y. ??Right common carotid angiogram centered over the neck was obt ained, which demonstrates a widely patent right carotid bifurcation. ??The catheter was then advanced selectively into the right inte rnal carotid artery under roadmap guidance, and a right internal c arotid angiogram was obtained. ??This does confirm occlusion of the distal right M1 segment. ??There is filling of the anter ior temporal branch and small perforating arteries as well as numerous lenticulostriate vessels, but no antegrade filling of the anterior or posterior division was seen. ??There was very slow retrograde f illing of the posterior division, which did appear to contain a fairly significant amount of thrombus. ??Under roadmap guidance, the H1 catheter was then exchanged for the Sofie 9 [place] balloon guide cat heter, which was placed into the midcervical right internal carotid a rtery. ??Followup right internal carotid angiogram was obtained, and then under roadmap guidance a Sofie 18L microcatheter was a dvanced over a Transcend wire and placed into the posterior division. ??After obtaining blood return, a gentle microcatheter angiogram was performed at that point which showed patency of the distal porti ons of the posterior division. ??Catheter was then withdrawn proximally, and an additional right M1 segment angiogram was obtained. ??This demonstrates what appears to be thrombus at the MCA bifurc ation, with thrombus extending into both the anterior and pos terior divisions. ?? Additionally, there also appeared to be some spasm in the internal carotid artery related to the balloon gu nakia catheter. ??The patient was therefore given 100 mg of intra-tacos rial nitroglycerin through the guide catheter. ??After the administ ration of nitroglycerin there was excellent flow, and an angiogram was repeated which again confirmed clot at the MCA bifurcation. ? ?Over the Transcend wire, and under roadmap guidance, the microcathete r was advanced into the anterior division, and at approximately 1730 hours t-PA thrombolysis was initiated. ??Two milligrams of intra -arterial t-PA were administered to the M2 segment of the an terior division of the right middle cerebral artery. ??The microcathe ter was then withdrawn into the distal M1 segment, and an additional 2 mg of t-PA was given at 1742 hours. ??At 1744 hours, 1 additiona l milligram of t-PA was administered, again to the right M1 segm ent. ??Also at this point, the patient's weight-based bolus of Integril in was determined and was noted to be 9.5 mg. ??He was therefore g iven 2 mg (1 mL) of intra-arterial Integrilin at 1744 hours. ??Additional t-PA and Integrilin administration was performed as follows: 1 mg to the posterior division at 1750 hours, 1 mg t o the posterior division at 1754 hours, 2 mg t-PA to the posterior d ivision at 1759 hours, and 3 mg t-PA to the posterior division at 180 2 hours. ??It should be noted that during this time both microcatheter and guide catheter angiograms were performed to assess the progress of intra-arterial thrombolysis. ??It became clear at this point in the procedure that the remaining burden of clot was largely within the posterior division, and attention was focused on t he posterior division for the remainder of the procedure. ? At 1807 hours, 4 mg (2 mL) of intra-tacos rial Integrilin were given to the posterior division. ??Additional t-P A and Integrilin administration was given as follows: at 1812 hours 3 mg of t-PA to the posterior division, at 1823 hours 1 mg of t-PA to the posterior division, at 1825 hours 1 mg to the post erior division, at 1826 hours 1 mg of t-PA to the posterior division, at 1829 hours 2 mg of Integrilin to the posterior division, an d finally at 1833 hours 1 mg of t-PA to the posterior division was gi jeanette. ??It should also be noted that microcatheter angiograms were perfo rmed from both positions in both the anterior and posterior division s of the right middle cerebral artery, as well as within the M 1 trunk of the right middle cerebral artery. ??A total of twenty zay ck angiograms were performed through the guide catheter and microcath eter to assess the progress of intra-arterial thrombolysis. ??As not ed above, the clot burden within the anterior division appeared to be much less than that in the posterior division. ??Some mechanica l to and through action of the microcatheter and wire were performed, a nd early check angiograms showed near complete resolution of clot within the anterior division with excellent antegrade filling of ante rior division branches. ?? There was a small area of thrombus withi n a distal M4 segment of one of the posterior branches which persiste d late into the procedure, but then appeared to ultimately resolve. ? At approximately 1812 hours there was si gnificant recanalization of the posterior division, after approximat natalie 15 mg t-PA and 3 mL of Integrilin. ??Antegrade filling of the p osterior division at that point was markedly improved. ??This was also following again significant mechanical manipulation with both the microcatheter and wire. ??However, subsequent followup zay ck angiograms showed some reaccumulation of clot primarily within the M2 segment and the proximal M3 segment of the posterior div ision. ??Additional amounts of t-PA were then given at that point, for a total of 19 mg t-PA, and 4 mL (8 mg) of Integrilin intra-arterially . ??Final angiograms did show an abnormal structure coursing along a p arallel path with the posterior division. ??The structure was of uncertain significance, but may have reflected early venous filling. ??Because of this the procedure was terminated at that point. ??Microcatheter was withdrawn, and final angiograms were obtained in wo rking projections and in a full field of view. ??These again showed near complete resolution of thrombus with excellent antegrade fillin g of both the anterior and posterior divisions. ??A few minimal are as of distal thrombus are seen in M4 cortical branches, primarily in th e posterior division. ??The remainder of the right anterior intracra nial circulation is widely patient. ? The microcatheter and guide catheter wer e then removed. ??The sheath was sutured into place. ??The patient wa s examined at that point and was noted to have improved strength, wit h 4+ strength in the upper extremity and 4 out of 5 strength in the lower extremity. ??His facial droop was largely resolved, and his dysa rthria had significantly improved. ??In addition, he did appear t o be oriented to person, place and time. ??His vital signs remained sta ble throughout the procedure. ?? A sheath, as above, was sutured into zan ce, and will be removed in the morning. ??The patient will also be taken for a STAT head CT to evaluate for intracranial hemorrhage. ? PHYSICIANS: ??Two attending physicians w ere present and scrubbed for the procedure, Dr. Fredrick Linda and Dr Joe Johnson. ?? TOTAL FLUOROSCOPY TIME: ??49.1 minutes. ?? TOTAL CONTRAST: ??180 mL Optiray. ?? TOTAL SEDATION TIME: ??2 hours. ?? MEDICATIONS: 1. ??Versed 3 mg IV. 2. ??Fentanyl 200 mcg IV. 3. ??t-PA 19 mg IA. 4. ??Integrilin 4 mL IA. 5. ??Nitroglycerin 100 mcg IA. ?? ESTIMATED BLOOD LOSS: ??Minimal. ?? IMPRESSION: ??Thrombus within the distal M1 segment of the right middle cerebral artery, occluding antegr miky flow into both the anterior and posterior divisions, and ca using significant left sided weakness, left sided facial droop, dysar thria and confusion in a 47-year-old man with an history of obesi ty and hypercholesterolemia. ?? This was treated with 19 mg of intra-art erial t-PA and 4 mL of intra-arterial Integrilin. ??Final angio grams showed excellent antegrade flow into both the anterior an d posterior divisions, with only very minimal areas of distal cortic al thrombus and no major residual branch occlusions. ??The patien t has also significantly clinically improved at the end of the pr ocedure, with near normal strength and only mild residual facial d devang and dysarthria. ? Fredrick Linda MD IMG IR ORDERABLES INT [employer] each additional peripheral artery (12/05/2007 7:22 PM TRIAL [employer]ER) Anatomical Region Laterality Modality Vascular Other Specimen (Source) Anatomical Collection Method Collection Time Re ceived Time Location / / Volume Laterality 12/05/2007 7:22 PM TRIAL [employer]ER Impressions 08/08/2012 1:18 PM CDT [facility] ?? CAROTID AND CEREBRAL ANGIOGRAM WITH INTR A-ARTERIAL THROMBOLYSIS FOR ACUTE STROKE ?? CLINICAL INFORMATION: ??A 47-year-old ma n with an history of obesity and hypercholesterolemia, as well as alc ohol abuse. ??The patient experienced the sudden onset of signific ant left sided weakness and left facial droop with dysarthria today while eating lunch with friends sometime between 1:20 p.m. and 1 :30 p.m. ??He ultimately presented to the emergency room, where a n head CT and CT angiogram were obtained. ??CT angiogram does demon strate what appears to be occlusion of the distal right M1 segment . ??There is no hemorrhage on the head CT, however because of the larg e vessel occlusion and because he was close to the three hour w indow at that point, we were contacted for possible endovascular inte rvention. ??We were contacted at approximately 4:00 p.m. ??Initial ang iographic images were obtained at approximately 5:00 p.m. ?? OPERATIONS: 1. ??Right common carotid angiogram cent ered over the neck. 2. ??Right internal carotid angiogram. 3. ??Placement of microcatheter into the right middle cerebral artery posterior division microcatheter angiogr am. 4. ??Intra-arterial thrombolysis with t- PA and Integrilin. ?? 5. ??Microcatheter angiogram was perform ed from the right M1 segment, the posterior division of the right midd le cerebral artery, and the anterior division of the right middle ce rebral artery. 6. ??Twenty check angiograms were perfor med through the guide catheter during intra-arterial thrombolysis. ?? PROCEDURE AND FINDINGS: ??The nature of the procedure was discussed in detail with the patient's , as he wa s confused on initial examination. ??The patient was initially examined at approximately 4:35 p.m., and was found to have signifi cant left sided weakness with left facial droop, dysarthria and some c onfusion. ??Strength in both the left upper and lower extremities was approximately 3 out of 5. ?? The patient was oriented to person and p lace, but at times appeared confused as to the time and was dysarthr ic, with a notable left facial droop. ??It was difficult to asse ss sensation. No other deficit was appreciated. ? After obtaining informed consent from th e patient's , using sterile technique and under local anesth esia, the right common femoral artery was directly percutaneous ly accessed with an 18-gauge single-wall needle, and a short 9 [place] sheath was placed. ??A 5 [place] H1 catheter was then advanced in the aortic arch and was placed in the right common carotid arter y. ??Right common carotid angiogram centered over the neck was obt ained, which demonstrates a widely patent right carotid bifurcation. ??The catheter was then advanced selectively into the right inte rnal carotid artery under roadmap guidance, and a right internal c arotid angiogram was obtained. ??This does confirm occlusion of the distal right M1 segment. ??There is filling of the anter ior temporal branch and small perforating arteries as well as numerous lenticulostriate vessels, but no antegrade filling of the anterior or posterior division was seen. ??There was very slow retrograde f illing of the posterior division, which did appear to contain a fairly significant amount of thrombus. ??Under roadmap guidance, the H1 catheter was then exchanged for the Sofie 9 [place] balloon guide cat heter, which was placed into the midcervical right internal carotid a rtery. ??Followup right internal carotid angiogram was obtained, and then under roadmap guidance a Sofie 18L microcatheter was a dvanced over a Transcend wire and placed into the posterior division. ??After obtaining blood return, a gentle microcatheter angiogram was performed at that point which showed patency of the distal porti ons of the posterior division. ??Catheter was then withdrawn proximally, and an additional right M1 segment angiogram was obtained. ??This demonstrates what appears to be thrombus at the MCA bifurc ation, with thrombus extending into both the anterior and pos terior divisions. ?? Additionally, there also appeared to be some spasm in the internal carotid artery related to the balloon gu nakia catheter. ??The patient was therefore given 100 mg of intra-tacos rial nitroglycerin through the guide catheter. ??After the administ ration of nitroglycerin there was excellent flow, and an angiogram was repeated which again confirmed clot at the MCA bifurcation. ? ?Over the Transcend wire, and under roadmap guidance, the microcathete r was advanced into the anterior division, and at approximately 1730 hours t-PA thrombolysis was initiated. ??Two milligrams of intra -arterial t-PA were administered to the M2 segment of the an terior division of the right middle cerebral artery. ??The microcathe ter was then withdrawn into the distal M1 segment, and an additional 2 mg of t-PA was given at 1742 hours. ??At 1744 hours, 1 additiona l milligram of t-PA was administered, again to the right M1 segm ent. ??Also at this point, the patient's weight-based bolus of Integril in was determined and was noted to be 9.5 mg. ??He was therefore g iven 2 mg (1 mL) of intra-arterial Integrilin at 1744 hours. ??Additional t-PA and Integrilin administration was performed as follows: 1 mg to the posterior division at 1750 hours, 1 mg t o the posterior division at 1754 hours, 2 mg t-PA to the posterior d ivision at 1759 hours, and 3 mg t-PA to the posterior division at 180 2 hours. ??It should be noted that during this time both microcatheter and guide catheter angiograms were performed to assess the progress of intra-arterial thrombolysis. ??It became clear at this point in the procedure that the remaining burden of clot was largely within the posterior division, and attention was focused on t he posterior division for the remainder of the procedure. ? At 1807 hours, 4 mg (2 mL) of intra-tacos rial Integrilin were given to the posterior division. ??Additional t-P A and Integrilin administration was given as follows: at 1812 hours 3 mg of t-PA to the posterior division, at 1823 hours 1 mg of t-PA to the posterior division, at 1825 hours 1 mg to the post erior division, at 1826 hours 1 mg of t-PA to the posterior division, at 1829 hours 2 mg of Integrilin to the posterior division, an d finally at 1833 hours 1 mg of t-PA to the posterior division was gi jeanette. ??It should also be noted that microcatheter angiograms were perfo rmed from both positions in both the anterior and posterior division s of the right middle cerebral artery, as well as within the M 1 trunk of the right middle cerebral artery. ??A total of twenty zay ck angiograms were performed through the guide catheter and microcath eter to assess the progress of intra-arterial thrombolysis. ??As not ed above, the clot burden within the anterior division appeared to be much less than that in the posterior division. ??Some mechanica l to and through action of the microcatheter and wire were performed, a nd early check angiograms showed near complete resolution of clot within the anterior division with excellent antegrade filling of ante rior division branches. ?? There was a small area of thrombus withi n a distal M4 segment of one of the posterior branches which persiste d late into the procedure, but then appeared to ultimately resolve. ? At approximately 1812 hours there was si gnificant recanalization of the posterior division, after approximat natalie 15 mg t-PA and 3 mL of Integrilin. ??Antegrade filling of the p osterior division at that point was markedly improved. ??This was also following again significant mechanical manipulation with both the microcatheter and wire. ??However, subsequent followup zay ck angiograms showed some reaccumulation of clot primarily within the M2 segment and the proximal M3 segment of the posterior div ision. ??Additional amounts of t-PA were then given at that point, for a total of 19 mg t-PA, and 4 mL (8 mg) of Integrilin intra-arterially . ??Final angiograms did show an abnormal structure coursing along a p arallel path with the posterior division. ??The structure was of uncertain significance, but may have reflected early venous filling. ??Because of this the procedure was terminated at that point. ??Microcatheter was withdrawn, and final angiograms were obtained in wo rking projections and in a full field of view. ??These again showed near complete resolution of thrombus with excellent antegrade fillin g of both the anterior and posterior divisions. ??A few minimal are as of distal thrombus are seen in M4 cortical branches, primarily in th e posterior division. ??The remainder of the right anterior intracra nial circulation is widely patient. ? The microcatheter and guide catheter wer e then removed. ??The sheath was sutured into place. ??The patient wa s examined at that point and was noted to have improved strength, wit h 4+ strength in the upper extremity and 4 out of 5 strength in the lower extremity. ??His facial droop was largely resolved, and his dysa rthria had significantly improved. ??In addition, he did appear t o be oriented to person, place and time. ??His vital signs remained sta ble throughout the procedure. ?? A sheath, as above, was sutured into zan ce, and will be removed in the morning. ??The patient will also be taken for a STAT head CT to evaluate for intracranial hemorrhage. ? PHYSICIANS: ??Two attending physicians w ere present and scrubbed for the procedure, Dr. Fredrick Linda and Dr Joe Johnson. ?? TOTAL FLUOROSCOPY TIME: ??49.1 minutes. ?? TOTAL CONTRAST: ??180 mL Optiray. ?? TOTAL SEDATION TIME: ??2 hours. ?? MEDICATIONS: 1. ??Versed 3 mg IV. 2. ??Fentanyl 200 mcg IV. 3. ??t-PA 19 mg IA. 4. ??Integrilin 4 mL IA. 5. ??Nitroglycerin 100 mcg IA. ?? ESTIMATED BLOOD LOSS: ??Minimal. ?? IMPRESSION: ??Thrombus within the distal M1 segment of the right middle cerebral artery, occluding antegr miky flow into both the anterior and posterior divisions, and ca using significant left sided weakness, left sided facial droop, dysar thria and confusion in a 47-year-old man with an history of obesi ty and hypercholesterolemia. ?? This was treated with 19 mg of intra-art erial t-PA and 4 mL of intra-arterial Integrilin. ??Final angio grams showed excellent antegrade flow into both the anterior an d posterior divisions, with only very minimal areas of distal cortic al thrombus and no major residual branch occlusions. ??The patien t has also significantly clinically improved at the end of the pr ocedure, with near normal strength and only mild residual facial d devang and dysarthria. ? Fredrick Linda MD IMG IR ORDERABLES INT angiogram carotid cervical right (12/05/2007 7:22 PM TRIAL LAW[employer]ER) Anatomical Region Laterality Modality Neck, C-spine, T-spine, Vascular Other Specimen (Source) Anatomical Collection Method Collection Time Re ceived Time Location / / Volume Laterality 12/05/2007 7:22 PM TRIAL [employer]ER Impressions 08/08/2012 1:18 PM CDT [facility] ?? CAROTID AND CEREBRAL ANGIOGRAM WITH INTR A-ARTERIAL THROMBOLYSIS FOR ACUTE STROKE ?? CLINICAL INFORMATION: ??A 47-year-old ma n with an history of obesity and hypercholesterolemia, as well as alc ohol abuse. ??The patient experienced the sudden onset of signific ant left sided weakness and left facial droop with dysarthria today while eating lunch with friends sometime between 1:20 p.m. and 1 :30 p.m. ??He ultimately presented to the emergency room, where a n head CT and CT angiogram were obtained. ??CT angiogram does demon strate what appears to be occlusion of the distal right M1 segment . ??There is no hemorrhage on the head CT, however because of the larg e vessel occlusion and because he was close to the three hour w indow at that point, we were contacted for possible endovascular inte rvention. ??We were contacted at approximately 4:00 p.m. ??Initial ang iographic images were obtained at approximately 5:00 p.m. ?? OPERATIONS: 1. ??Right common carotid angiogram cent ered over the neck. 2. ??Right internal carotid angiogram. 3. ??Placement of microcatheter into the right middle cerebral artery posterior division microcatheter angiogr am. 4. ??Intra-arterial thrombolysis with t- PA and Integrilin. ?? 5. ??Microcatheter angiogram was perform ed from the right M1 segment, the posterior division of the right midd le cerebral artery, and the anterior division of the right middle ce rebral artery. 6. ??Twenty check angiograms were perfor med through the guide catheter during intra-arterial thrombolysis. ?? PROCEDURE AND FINDINGS: ??The nature of the procedure was discussed in detail with the patient's , as he wa s confused on initial examination. ??The patient was initially examined at approximately 4:35 p.m., and was found to have signifi cant left sided weakness with left facial droop, dysarthria and some c onfusion. ??Strength in both the left upper and lower extremities was approximately 3 out of 5. ?? The patient was oriented to person and p lace, but at times appeared confused as to the time and was dysarthr ic, with a notable left facial droop. ??It was difficult to asse ss sensation. No other deficit was appreciated. ? After obtaining informed consent from th e patient's , using sterile technique and under local anesth esia, the right common femoral artery was directly percutaneous ly accessed with an 18-gauge single-wall needle, and a short 9 [place] sheath was placed. ??A 5 [place] H1 catheter was then advanced in the aortic arch and was placed in the right common carotid arter y. ??Right common carotid angiogram centered over the neck was obt ained, which demonstrates a widely patent right carotid bifurcation. ??The catheter was then advanced selectively into the right inte rnal carotid artery under roadmap guidance, and a right internal c arotid angiogram was obtained. ??This does confirm occlusion of the distal right M1 segment. ??There is filling of the anter ior temporal branch and small perforating arteries as well as numerous lenticulostriate vessels, but no antegrade filling of the anterior or posterior division was seen. ??There was very slow retrograde f illing of the posterior division, which did appear to contain a fairly significant amount of thrombus. ??Under roadmap guidance, the H1 catheter was then exchanged for the Sofie 9 [place] balloon guide cat heter, which was placed into the midcervical right internal carotid a rtery. ??Followup right internal carotid angiogram was obtained, and then under roadmap guidance a Sofie 18L microcatheter was a dvanced over a Transcend wire and placed into the posterior division. ??After obtaining blood return, a gentle microcatheter angiogram was performed at that point which showed patency of the distal porti ons of the posterior division. ??Catheter was then withdrawn proximally, and an additional right M1 segment angiogram was obtained. ??This demonstrates what appears to be thrombus at the MCA bifurc ation, with thrombus extending into both the anterior and pos terior divisions. ?? Additionally, there also appeared to be some spasm in the internal carotid artery related to the balloon gu nakia catheter. ??The patient was therefore given 100 mg of intra-tacos rial nitroglycerin through the guide catheter. ??After the administ ration of nitroglycerin there was excellent flow, and an angiogram was repeated which again confirmed clot at the MCA bifurcation. ? ?Over the Transcend wire, and under roadmap guidance, the microcathete r was advanced into the anterior division, and at approximately 1730 hours t-PA thrombolysis was initiated. ??Two milligrams of intra -arterial t-PA were administered to the M2 segment of the an terior division of the right middle cerebral artery. ??The microcathe ter was then withdrawn into the distal M1 segment, and an additional 2 mg of t-PA was given at 1742 hours. ??At 1744 hours, 1 additiona l milligram of t-PA was administered, again to the right M1 segm ent. ??Also at this point, the patient's weight-based bolus of Integril in was determined and was noted to be 9.5 mg. ??He was therefore g iven 2 mg (1 mL) of intra-arterial Integrilin at 1744 hours. ??Additional t-PA and Integrilin administration was performed as follows: 1 mg to the posterior division at 1750 hours, 1 mg t o the posterior division at 1754 hours, 2 mg t-PA to the posterior d ivision at 1759 hours, and 3 mg t-PA to the posterior division at 180 2 hours. ??It should be noted that during this time both microcatheter and guide catheter angiograms were performed to assess the progress of intra-arterial thrombolysis. ??It became clear at this point in the procedure that the remaining burden of clot was largely within the posterior division, and attention was focused on t he posterior division for the remainder of the procedure. ? At 1807 hours, 4 mg (2 mL) of intra-tacos rial Integrilin were given to the posterior division. ??Additional t-P A and Integrilin administration was given as follows: at 1812 hours 3 mg of t-PA to the posterior division, at 1823 hours 1 mg of t-PA to the posterior division, at 1825 hours 1 mg to the post erior division, at 1826 hours 1 mg of t-PA to the posterior division, at 1829 hours 2 mg of Integrilin to the posterior division, an d finally at 1833 hours 1 mg of t-PA to the posterior division was gi jeanette. ??It should also be noted that microcatheter angiograms were perfo rmed from both positions in both the anterior and posterior division s of the right middle cerebral artery, as well as within the M 1 trunk of the right middle cerebral artery. ??A total of twenty zay ck angiograms were performed through the guide catheter and microcath eter to assess the progress of intra-arterial thrombolysis. ??As not ed above, the clot burden within the anterior division appeared to be much less than that in the posterior division. ??Some mechanica l to and through action of the microcatheter and wire were performed, a nd early check angiograms showed near complete resolution of clot within the anterior division with excellent antegrade filling of ante rior division branches. ?? There was a small area of thrombus withi n a distal M4 segment of one of the posterior branches which persiste d late into the procedure, but then appeared to ultimately resolve. ? At approximately 1812 hours there was si gnificant recanalization of the posterior division, after approximat natalie 15 mg t-PA and 3 mL of Integrilin. ??Antegrade filling of the p osterior division at that point was markedly improved. ??This was also following again significant mechanical manipulation with both the microcatheter and wire. ??However, subsequent followup zay ck angiograms showed some reaccumulation of clot primarily within the M2 segment and the proximal M3 segment of the posterior div ision. ??Additional amounts of t-PA were then given at that point, for a total of 19 mg t-PA, and 4 mL (8 mg) of Integrilin intra-arterially . ??Final angiograms did show an abnormal structure coursing along a p arallel path with the posterior division. ??The structure was of uncertain significance, but may have reflected early venous filling. ??Because of this the procedure was terminated at that point. ??Microcatheter was withdrawn, and final angiograms were obtained in wo rking projections and in a full field of view. ??These again showed near complete resolution of thrombus with excellent antegrade fillin g of both the anterior and posterior divisions. ??A few minimal are as of distal thrombus are seen in M4 cortical branches, primarily in th e posterior division. ??The remainder of the right anterior intracra nial circulation is widely patient. ? The microcatheter and guide catheter wer e then removed. ??The sheath was sutured into place. ??The patient wa s examined at that point and was noted to have improved strength, wit h 4+ strength in the upper extremity and 4 out of 5 strength in the lower extremity. ??His facial droop was largely resolved, and his dysa rthria had significantly improved. ??In addition, he did appear t o be oriented to person, place and time. ??His vital signs remained sta ble throughout the procedure. ?? A sheath, as above, was sutured into zan ce, and will be removed in the morning. ??The patient will also be taken for a STAT head CT to evaluate for intracranial hemorrhage. ? PHYSICIANS: ??Two attending physicians w ere present and scrubbed for the procedure, Dr. Fredrick iLnda and Dr Joe Johnson. ?? TOTAL FLUOROSCOPY TIME: ??49.1 minutes. ?? TOTAL CONTRAST: ??180 mL Optiray. ?? TOTAL SEDATION TIME: ??2 hours. ?? MEDICATIONS: 1. ??Versed 3 mg IV. 2. ??Fentanyl 200 mcg IV. 3. ??t-PA 19 mg IA. 4. ??Integrilin 4 mL IA. 5. ??Nitroglycerin 100 mcg IA. ?? ESTIMATED BLOOD LOSS: ??Minimal. ?? IMPRESSION: ??Thrombus within the distal M1 segment of the right middle cerebral artery, occluding antegr miky flow into both the anterior and posterior divisions, and ca using significant left sided weakness, left sided facial droop, dysar thria and confusion in a 47-year-old man with an history of obesi ty and hypercholesterolemia. ?? This was treated with 19 mg of intra-art erial t-PA and 4 mL of intra-arterial Integrilin. ??Final angio grams showed excellent antegrade flow into both the anterior an d posterior divisions, with only very minimal areas of distal cortic al thrombus and no major residual branch occlusions. ??The patien t has also significantly clinically improved at the end of the pr ocedure, with near normal strength and only mild residual facial d devang and dysarthria. ? Fredrick Linda MD IMG IR ORDERABLES INT angiogram carotid cerebral right (12/05/2007 7:22 PM [employer]) Anatomical Region Laterality Modality Head, Neck, Vascular Other Specimen (Source) Anatomical Collection Method Collection Time Re ceived Time Location / / Volume Laterality 12/05/2007 7:22 PM [employer] Impressions 08/08/2012 1:18 PM CDT SHASHANK HASTINGS ?? CAROTID AND CEREBRAL ANGIOGRAM WITH INTR A-ARTERIAL THROMBOLYSIS FOR ACUTE STROKE ?? CLINICAL INFORMATION: ??A 47-year-old ma n with an history of obesity and hypercholesterolemia, as well as alc ohol abuse. ??The patient experienced the sudden onset of signific ant left sided weakness and left facial droop with dysarthria today while eating lunch with friends sometime between 1:20 p.m. and 1 :30 p.m. ??He ultimately presented to the emergency room, where a n head CT and CT angiogram were obtained. ??CT angiogram does demanshul strate what appears to be occlusion of the distal right M1 segment . ??There is no hemorrhage on the head CT, however because of the larg e vessel occlusion and because he was close to the three hour w indow at that point, we were contacted for possible endovascular inte rvention. ??We were contacted at approximately 4:00 p.m. ??Initial ang iographic images were obtained at approximately 5:00 p.m. ?? OPERATIONS: 1. ??Right common carotid angiogram cent ered over the neck. 2. ??Right internal carotid angiogram. 3. ??Placement of microcatheter into the right middle cerebral artery posterior division microcatheter angiogr am. 4. ??Intra-arterial thrombolysis with t- PA and Integrilin. ?? 5. ??Microcatheter angiogram was perform ed from the right M1 segment, the posterior division of the right midd le cerebral artery, and the anterior division of the right middle ce rebral artery. 6. ??Twenty check angiograms were perfor med through the guide catheter during intra-arterial thrombolysis. ?? PROCEDURE AND FINDINGS: ??The nature of the procedure was discussed in detail with the patient's , as he wa s confused on initial examination. ??The patient was initially examined at approximately 4:35 p.m., and was found to have signifi cant left sided weakness with left facial droop, dysarthria and some c onfusion. ??Strength in both the left upper and lower extremities was approximately 3 out of 5. ?? The patient was oriented to person and p lace, but at times appeared confused as to the time and was dysarthr ic, with a notable left facial droop. ??It was difficult to asse ss sensation. No other deficit was appreciated. ? After obtaining informed consent from th e patient's , using sterile technique and under local anesth esia, the right common femoral artery was directly percutaneous ly accessed with an 18-gauge single-wall needle, and a short 9 [place]an sheath was placed. ??A 5 [place] H1 catheter was then advanced in the aortic arch and was placed in the right common carotid arter y. ??Right common carotid angiogram centered over the neck was obt ained, which demonstrates a widely patent right carotid bifurcation. ??The catheter was then advanced selectively into the right inte rnal carotid artery under roadmap guidance, and a right internal c arotid angiogram was obtained. ??This does confirm occlusion of the distal right M1 segment. ??There is filling of the anter ior temporal branch and small perforating arteries as well as numerous lenticulostriate vessels, but no antegrade filling of the anterior or posterior division was seen. ??There was very slow retrograde f illing of the posterior division, which did appear to contain a fairly significant amount of thrombus. ??Under roadmap guidance, the H1 catheter was then exchanged for the Sofie 9 [place]an balloon guide cat heter, which was placed into the midcervical right internal carotid a rtery. ??Followup right internal carotid angiogram was obtained, and then under roadmap guidance a Sofie 18L microcatheter was a dvanced over a Transcend wire and placed into the posterior division. ??After obtaining blood return, a gentle microcatheter angiogram was performed at that point which showed patency of the distal porti ons of the posterior division. ??Catheter was then withdrawn proximally, and an additional right M1 segment angiogram was obtained. ??This demonstrates what appears to be thrombus at the MCA bifurc ation, with thrombus extending into both the anterior and pos terior divisions. ?? Additionally, there also appeared to be some spasm in the internal carotid artery related to the balloon gu nakia catheter. ??The patient was therefore given 100 mg of intra-tacos rial nitroglycerin through the guide catheter. ??After the administ ration of nitroglycerin there was excellent flow, and an angiogram was repeated which again confirmed clot at the MCA bifurcation. ? ?Over the Transcend wire, and under roadmap guidance, the microcathete r was advanced into the anterior division, and at approximately 1730 hours t-PA thrombolysis was initiated. ??Two milligrams of intra -arterial t-PA were administered to the M2 segment of the an terior division of the right middle cerebral artery. ??The microcathe ter was then withdrawn into the distal M1 segment, and an additional 2 mg of t-PA was given at 1742 hours. ??At 1744 hours, 1 additiona l milligram of t-PA was administered, again to the right M1 segm ent. ??Also at this point, the patient's weight-based bolus of Integril in was determined and was noted to be 9.5 mg. ??He was therefore g iven 2 mg (1 mL) of intra-arterial Integrilin at 1744 hours. ??Additional t-PA and Integrilin administration was performed as follows: 1 mg to the posterior division at 1750 hours, 1 mg t o the posterior division at 1754 hours, 2 mg t-PA to the posterior d ivision at 1759 hours, and 3 mg t-PA to the posterior division at 180 2 hours. ??It should be noted that during this time both microcatheter and guide catheter angiograms were performed to assess the progress of intra-arterial thrombolysis. ??It became clear at this point in the procedure that the remaining burden of clot was largely within the posterior division, and attention was focused on t he posterior division for the remainder of the procedure. ? At 1807 hours, 4 mg (2 mL) of intra-tacos rial Integrilin were given to the posterior division. ??Additional t-P A and Integrilin administration was given as follows: at 1812 hours 3 mg of t-PA to the posterior division, at 1823 hours 1 mg of t-PA to the posterior division, at 1825 hours 1 mg to the post erior division, at 1826 hours 1 mg of t-PA to the posterior division, at 1829 hours 2 mg of Integrilin to the posterior division, an d finally at 1833 hours 1 mg of t-PA to the posterior division was gi jeanette. ??It should also be noted that microcatheter angiograms were perfo rmed from both positions in both the anterior and posterior division s of the right middle cerebral artery, as well as within the M 1 trunk of the right middle cerebral artery. ??A total of twenty zay ck angiograms were performed through the guide catheter and microcath eter to assess the progress of intra-arterial thrombolysis. ??As not ed above, the clot burden within the anterior division appeared to be much less than that in the posterior division. ??Some mechanica l to and through action of the microcatheter and wire were performed, a nd early check angiograms showed near complete resolution of clot within the anterior division with excellent antegrade filling of ante rior division branches. ?? There was a small area of thrombus withi n a distal M4 segment of one of the posterior branches which persiste d late into the procedure, but then appeared to ultimately resolve. ? At approximately 1812 hours there was si gnificant recanalization of the posterior division, after approximat natalie 15 mg t-PA and 3 mL of Integrilin. ??Antegrade filling of the p osterior division at that point was markedly improved. ??This was also following again significant mechanical manipulation with both the microcatheter and wire. ??However, subsequent followup zay ck angiograms showed some reaccumulation of clot primarily within the M2 segment and the proximal M3 segment of the posterior div ision. ??Additional amounts of t-PA were then given at that point, for a total of 19 mg t-PA, and 4 mL (8 mg) of Integrilin intra-arterially . ??Final angiograms did show an abnormal structure coursing along a p arallel path with the posterior division. ??The structure was of uncertain significance, but may have reflected early venous filling. ??Because of this the procedure was terminated at that point. ??Microcatheter was withdrawn, and final angiograms were obtained in wo rking projections and in a full field of view. ??These again showed near complete resolution of thrombus with excellent antegrade fillin g of both the anterior and posterior divisions. ??A few minimal are as of distal thrombus are seen in M4 cortical branches, primarily in th e posterior division. ??The remainder of the right anterior intracra nial circulation is widely patient. ? The microcatheter and guide catheter wer e then removed. ??The sheath was sutured into place. ??The patient wa s examined at that point and was noted to have improved strength, wit h 4+ strength in the upper extremity and 4 out of 5 strength in the lower extremity. ??His facial droop was largely resolved, and his dysa rthria had significantly improved. ??In addition, he did appear t o be oriented to person, place and time. ??His vital signs remained sta ble throughout the procedure. ?? A sheath, as above, was sutured into zan ce, and will be removed in the morning. ??The patient will also be taken for a STAT head CT to evaluate for intracranial hemorrhage. ? PHYSICIANS: ??Two attending physicians w ere present and scrubbed for the procedure, Dr. Fredrick Linda and Dr Joe Johnson. ?? TOTAL FLUOROSCOPY TIME: ??49.1 minutes. ?? TOTAL CONTRAST: ??180 mL Optiray. ?? TOTAL SEDATION TIME: ??2 hours. ?? MEDICATIONS: 1. ??Versed 3 mg IV. 2. ??Fentanyl 200 mcg IV. 3. ??t-PA 19 mg IA. 4. ??Integrilin 4 mL IA. 5. ??Nitroglycerin 100 mcg IA. ?? ESTIMATED BLOOD LOSS: ??Minimal. ?? IMPRESSION: ??Thrombus within the distal M1 segment of the right middle cerebral artery, occluding antegr miky flow into both the anterior and posterior divisions, and ca using significant left sided weakness, left sided facial droop, dysar thria and confusion in a 47-year-old man with an history of obesi ty and hypercholesterolemia. ?? This was treated with 19 mg of intra-art erial t-PA and 4 mL of intra-arterial Integrilin. ??Final angio grams showed excellent antegrade flow into both the anterior an d posterior divisions, with only very minimal areas of distal cortic al thrombus and no major residual branch occlusions. ??The patien t has also significantly clinically improved at the end of the pr ocedure, with near normal strength and only mild residual facial d devang and dysarthria. ? Fredrick Linda MD IMG IR ORDERABLES documented in this encounter Visit Diagnoses Not on filedocumented in this encounter Care Teams [employer] Relationship Specialty Start Date End Date Kameron German MD PCP - General Family Practice 10/21/11 12/21/[address] [id number] documented as of this encounter
--- OUTSIDE RECORDS SUMMARY | 2022-10-06 11:33 | XMS_ITS | Encounter Summary ---
:1960 Author Organization [place] Address [facility] [place] [address] Care Team Providers Name Role Phone Unavailable Primary Care Provider Unavailable Encounter Details Date Type Department Care Team Description 01/29/2005 Operative Report Tristan Lopez MD (Interpreter For The Deaf) [facility] [address] [place], [place] [address] (Wo rk) Social History Tobacco Use Types Packs/Day Years Used Date Smoking Tobacco: Never Assessed Sex Assigned at Date Recorded Not on file documented as of this encounter Progress Notes Mark Lopez - 01/29/2005 11:59 PM CHEMICAL RADIATION TECHNICIAN : 1st ASS'T: 2nd ASS'T: PRE-OPERATIVE DIAGNOSIS: Right palm Dupuytren's contracture disease. POST-OPERATIVE DIAGNOSIS: Right palm Dupuytren's contracture disease. OPERATION: Excision of right palm Dupuytren's. ANESTHESIA: IV regional. PREOPERATIVE HISTORY: 44-year-old gentleman with a history of a Dupuytren's contracture disease along the base of the ring finger and small finger with a specifically large contraction nodule overlying the palm become more bothersome to him particularly with gripping and grasping, presents at this time for operative management. DESCRIPTION OF THE PROCEDURE: After obtaining informed consent the patient was taken to the Operating Room and placed on the operating table in supine position. IV regional anesthesia was performed. Preoperative antibiotics were given. His right upper extremity was prepped and draped sterilely. A transverse incision was made along the palm over the palpable Dupuytren's cord and nodule. Dissection then proceeded with a Hendricks blade proximally and distally. The cord was identified extending proximally to the transverse carpal ligament distal margin. This was dissected to its extent. It was then released using Hendricks blades from the underlying thermal tissues distally where it was dimpling the skin. At this point deeper dissection then proceeded around the large nodule which extended down along the flexor tendon sheath and digital nerves. Neurovascular structures were identified and retracted out of harms way. The Dupuytren's contraction nodule was released from the flexor tendon sheath and completely excised. The wound was then thoroughly irrigated, skin was closed with #5-0 nylon. Compression bandage was applied and sterile dressing. He tolerated the procedure well with no complications and transferred to recovery in stable condition. [id number] MARK LOPEZ MD MT: Document: [id number] [place], [place] Name: MR#: SHASHANK HASTINGS [id number] OPERATIVE REPORT Page 2 of 2 LCN: SDS DSC: 01/29/2005 [place], [place] Name: MR#: SHASHANK HASTINGS -42 : Procedure Date: Account #: 1960 01/29/2005 [id number] Doctor: MARK LOPEZ MD OPERATIVE REPORT Page 1 of 2 ICAL RADIATION TECHNICIAN documented in this encounter Plan of Treatment Not on filedocumented as of this encounter Visit Diagnoses Not on filedocumented in this encounter
--- OUTSIDE RECORDS SUMMARY | 2022-10-06 11:33 | XMS_ITS | Encounter Summary ---
:1960 Author Organization [place] Address [address] [place] [address]. [place] [address] Care Team Providers Name Role Phone Unavailable Primary Care Provider Unavailable Encounter Details Date Type Department Care Team Description 11/09/2005 Results Only [facility] Kameron Kelly om, MD Hospital Results [address] [address] (Wo rk) Social History Tobacco Use Types Packs/Day Years Used Date Smoking Tobacco: Never Assessed Sex Assigned at Date Recorded Not on file documented as of this encounter Plan of Treatment Not on filedocumented as of this encounter Procedures Procedure Name Priority Date/Time Associated Diagnosis Comme nts LIVER SPECT SCAN Routine 11/09/2005 9:54 AM Re sults for this SALES[employer] SPECIALIST procedure are i n the results section. LIVER & SPLEEN Routine 11/09/2005 8:07 AM Resu lts for this SCAN, STATIC ONLY [employer] SPECIALIST procedure are in the results section. documented in this encounter Results LIVER IMAGING (SPECT) (11/09/2005 9:54 AM SALESFORCE SPECIALIST) Anatomical Region Laterality Modality Other Specimen (Source) Anatomical Collection Method Collection Time Re ceived Time Location / / Volume Laterality 11/09/2005 9:54 AM SALESFORCE SPECIALIST Impressions 11/09/2005 3:13 PM SALESFORCE SPECIALIST NUCLEAR MEDICINE LIVER SPECT - 5 ?? TECHNIQUE: Using 6.1mCi technetium bound Sulfur Colloid. Also SPECT imaging was performed. ?? FINDINGS: There is a focal area of uptak e in the region of the splenic bed which corresponds well with the focal lesion seen in the region of the tail of the pancreas. 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 I recommend a follow up CT scan in three months to c onfirm stability of this area. ?? Kameron German MD SPECIAL IMAGING STUDIES LIVER AND SPLEEN IMAGING (11/09/2005 8:07 AM SALESFORCE SPECIALIST) Anatomical Region Laterality Modality Other Specimen (Source) Anatomical Collection Method Collection Time Re ceived Time Location / / Volume Laterality 11/09/2005 8:07 AM SALESFORCE SPECIALIST Impressions 11/09/2005 3:13 PM SALESFORCE SPECIALIST NUCLEAR MEDICINE LIVER SPECT - 5 ?? TECHNIQUE: Using 6.1mCi technetium bound Sulfur Colloid. Also SPECT imaging was performed. ?? FINDINGS: There is a focal area of uptak e in the region of the splenic bed which corresponds well with the focal lesion seen in the region of the tail of the pancreas. 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 I recommend a follow up CT scan in three months to c onfirm stability of this area. ?? Kameron German MD SPECIAL IMAGING STUDIES documented in this encounter Visit Diagnoses Not on filedocumented in this encounter
--- OUTSIDE RECORDS SUMMARY | 2022-10-06 11:33 | XMS_ITS | Encounter Summary ---
:1960 Author Organization [place] Address [address] [place] [address]. [place] [address] Care Team Providers Name Role Phone Unavailable Primary Care Provider Unavailable Encounter Details Date Type Department Care Team Description 01/29/2005 Historic Results INTERFACED REPORT Pravin Reinoso MD [facility] [address] [place], [place] [address] (Wo rk) Social History Tobacco Use Types Packs/Day Years Used Date Smoking Tobacco: Never Assessed Sex Assigned at Date Recorded Not on file documented as of this encounter Plan of Treatment Not on filedocumented as of this encounter Procedures Procedure Name Priority Date/Time Associated Diagnosis Comme nts HISTOPATHOLOGY Routine 01/29/2005 12:00 AM Result s for this TAXICAB STARTER procedure are i n the results section . documented in this encounter Results Histopathology (01/29/2005 12:00 AM TAXICAB STARTER) Component Value Ref Test Analysis Performed At [facility] Range Method Time Signature Copath Report CASE: [id number] ^ COPATH MR#: [id number] Patient Name: SHASHANK HASTINGS. Collected: 01/29/2005 Received: 01/29/2005 Reported: 02/01/2005 17:23 Ordering Phy(s): MARK REINOSO Additional Phy(s): CARMITA HOPKINS SPECIMEN(S): Scar tissue, right hand FINAL DIAGNOSIS: Soft tissue, right hand, excision-- 1. ?Focal fibrosis and vascular proliferation. 2. ?No evidence of malignancy. Electronically signed out by: Tatiana DumontD. CLINICAL HISTORY: Right Dupuytren' s contracture. GROSS: The specimen, labeled right hand scar tissue, consists of a 1.5 cm in diameter fragment of white to pink to yellow rubbery tissue. ??The specimen is submitted in its entirety for histologic examina tion. MGP/sg MICROSCOPIC: Microscopic examination was performed. MGP/kd 02-01-05 Specimen (Source) Anatomical Collection Method Collection Time Re ceived Time Location / / Volume Laterality 01/29/2005 02/01/2005 5:24 PM TAXICAB STARTER Mark Reinoso MD LAB - [facility] SPECIAL DIAG OR DERABLES Performing Organization Address City/State/ZIP Code Phon e Number COPATH documented in this encounter Visit Diagnoses Not on filedocumented in this encounter
--- OUTSIDE RECORDS SUMMARY | 2022-10-06 11:33 | XMS_ITS | Encounter Summary ---
:1960 Author Organization [place] Address [address] [place] [address]. [place] [address] Care Team Providers Name Role Phone Unavailable Primary Care Provider Unavailable Encounter Details Date Type Department Care Team Description 10/26/2005 Results Only [facility] Kameron Kelly om, MD Hospital Results [address] [address] (Wo rk) Social History Tobacco Use Types Packs/Day Years Used Date Smoking Tobacco: Never Assessed Sex Assigned at Date Recorded Not on file documented as of this encounter Plan of Treatment Not on filedocumented as of this encounter Procedures Procedure Name Priority Date/Time Associated Diagnosis Comme [facility] CT ABDOMEN W/O Routine 10/26/2005 9:48 AM Resu lts for this CONTRAST EMPLOYEE COUNSELOR procedure are i n the results section. documented in this encounter Results CT SCAN ABDOMEN (10/26/2005 9:48 AM EMPLOYEE COUNSELOR) Anatomical Region Laterality Modality Other Specimen (Source) Anatomical Collection Method Collection Time Re ceived Time Location / / Volume Laterality 10/26/2005 9:48 AM EMPLOYEE COUNSELOR Impressions 10/26/2005 4:[address] ABDOMEN WITH IV CONTRAST MATERIAL ? 10/26/2005 ?? HISTORY: ??Left upper quadrant pain. ? FINDINGS: ?? 1. ?There is a 2.7cm mass whic h appears to be in the left upper quadrant that appears to be arising from the tail of the pancreas. ?? This would be accessible to CT guided bi opsy if clinically indicated. 2. ?Diverticulum off the fundu s of the stomach posteriorly. 3. ?A couple small nodules in the left upper quadrant possibly accessory spleen or lymph nodes. ??The s pleen has been removed. 4. ?Exam is otherwise unremark able. ?? Kameron German MD SPECIAL IMAGING STUDIES documented in this encounter Visit Diagnoses Not on filedocumented in this encounter
--- OUTSIDE RECORDS SUMMARY | 2022-10-06 11:33 | XMS_ITS | Encounter Summary ---
:1960 Author Organization [place] Address formerly [facility] [place] [address] Care Team Providers Name Role Phone Unavailable Primary Care Provider Unavailable Encounter Details Date Type Department Care Team Description 02/01/2004 Emergency room Shashank Mercado MD EMERGENCY PHYSIC [facility]TER [address] [place], [place] [address] (Wo rk) Social History Tobacco Use Types Packs/Day Years Used Date Smoking Tobacco: Never Assessed Sex Assigned at Date Recorded Not on file documented as of this encounter ED Notes Shashank Mercado - 02/01/2004 12:00 AM EDGE GRINDER MACHINE : 56 CHIEF COMPLAINT: Foreign body in throat. HISTORY OF PRESENT ILLNESS: This 43-year-old male presents ambulatory to the Emergency Department reporting that after eating deviled eggs, 3 of them, last evening he felt some discomfort in the left throat area and he points to the area just to the left of the laryngeal cartilage. He says it hurts to swallow and he can feel it all the way down to his stomach when he swallows. He thinks there's an obstruction down near his stomach, but he's been handling the secretions and he's been drinking fluids today. He hasn't eaten today. He denies any chest pain. No shortness of breath, no diaphoresis. He says he's asymptomatic as long as he doesn't swallow. As soon as he swallows he gets this sensation. PAST MEDICAL HISTORY: GERD with dilation, endoscopy times 2 in the past. MEDICATIONS: Nexium, Vioxx. ALLERGIES: No known drug allergies. REVIEW OF SYSTEMS: See HPI; all other systems negative. PHYSICAL EXAMINATION: Temperature 97.8, heart rate 79, respiratory rate 16, blood pressure 134/82, room air sat 97%. In general, he's alert and oriented times 3, PERRL, EOMI. SKIN is pink, warm and dry. He is handling his secretions well without problem. Airway is patent. Pharynx is clear. CARDIOVASCULAR - regular S1, S2, no murmur or added sounds. RESPIRATORY - no increased work of breathing; lungs clear. GI - abdomen soft, nontender, no guarding or rebound present. He's obese. PROCEDURE NOTE: I discussed with the patient the need to look at the epiglottal/supraglottal region. I used a 3 cc syringe with 1% Lidocaine solution atomizer sprayed up the right nostril with good anesthesia in the nostril and posterior pharynx and inserted the Machida scope in the right naris with good visualization of the epiglottis, which is completely normal in the area of the epiglottic folds, retinoid cartilages of vallecula. The cords had been visualized early and were normal appearing. The area distal to this was more difficult to visualize. The patient tolerated this procedure very well. He was given viscous Lidocaine with Mylanta, GI cocktail with good relief with discomfort going from 7/10 down to 2/10 with a GI cocktail. IMPRESSION: 1. Foreign body sensation. 2. Odynophagia. 3. Normal Machida scope examination of the supraglottal region. PLAN: Home on Keflex 250 mg 2 po bid for 5 days. May use ibuprofen or Tylenol prn. Follow-up with ENT in 48-72 hours if symptoms persist. Return for fever, increasing symptoms or new symptoms. I doubt this patient has epiglottitis or supraglottitis, but his exam was nonspecific andit does seem to be related to esophageal foreign body sensation with some esophageal spasm when he swallows. [id number]_ SHASHANK MERCADO MD [place]: Document: [id number] [place], [place] Name: SHASHANK HASTINGS EMERGENCY ROOM ENCOUNTER Page 2 of 2 LCN: SHAYNE DSC: 02/01/2004 [place], [place] Name: MR#: : Admit Date: BIBISHASHANK Reggie -40 1960 02/01/2004 Doctor: SHASHANK MERCADO MD EMERGENCY ROOM ENCOUNTER Page 1 of 2 GRINDER MACHINE documented in this encounter Plan of Treatment Not on filedocumented as of this encounter Visit Diagnoses Not on filedocumented in this encounter
--- OUTSIDE RECORDS SUMMARY | 2022-10-06 11:35 | XMS_ITS | Encounter Summary ---
:1960 Author Organization [facility] Address [address] [facility] [place] [address] Care Team Providers Name Role Phone Lucero Fraire MD Primary Care Provider Reason for Referral Therapies (Routine) - Closed Specialty Diagnoses / Procedures Referred By Contact Refer red To Contact Diagnoses Surgery follow-up Kameron Morales MD [address] [facility] [address] [facility] [address] [place] [address] Referral ID Status Reason Start Date Expiration Date Visits Requ ested Visits Authorized [id number] Closed 06/06/2017 08/05/2017 1 1 Scheduling Instructions If scheduling assistance is needed, awilda lira inquire with the medical office staff upon exiting your appointment or contact the ordering clinic for recommended locations. This recommended service/s may not be co darek by your insurance coverage. To find out your specific benefit coverage, please c all the number on your insurance card. Procedure/Equipment (Routine) - Incomplete Specialty Diagnoses / Procedures Referred By Contact Refer red To Contact Diagnoses Surgery follow-up Kameron Morales MD Procedures XR Knee Lt 2 Views [address] [place] [address] Referral ID Status Reason Start Date Expiration Date Visits V isits Requested Authorized [id number] Incomplete 06/06/2017 09/05/2018 1 1 Reason for Visit Reason Comments Knee Pain or Injury Left Encounter Details Date Type Department Care Team Description 06/06/2017 Office Visit [facility] L[facility] M D Surgery follow-up CENTER [address] [place] [address] (Primary Dx) [address] [place], [place] [address] [phone] (Wo rk) Social History Tobacco Use Types Packs/Day Years Used Date Smoking Tobacco: Former Comments: Quit smoking: Alcohol Use Standard Drinks/Week Comments No 0 (1 standard drink = 0.6 oz pure alcoho l) Sex Assigned at Date Recorded Not on file documented as of this encounter Progress Notes Zeke Nevarez MD - 06/06/2017 2:48 PM CDT NAME: SHASHANK HASTINGS MR#: [id number] CSN: [id number] AUTHENTICATING CLINICIAN: Kameron Morales MD CONFIRM #: [id number] LOC: 711 CLINIC PROGRESS NOTE DATE OF VISIT: 06/06/2017 : 1960 SURGERY: Left proximal tib/fib fusion on 09/27/2016. SUBJECTIVE: Shashank is a 56-year-old gentleman now approximately 8 months status post left proximal tib-fib jointfusion. He is returning to clinic for evaluation. On our last visit he had a CT scan ordered to evaluate for fusion of this joint. He continues to have diffuse nondescript pain throughout the leg, kneeand thigh which is unpredictable and is not well localized. He also states that his knee gives out at times. He is unable to describe what his main concern is today other than he wants to be back to normal. He endorses numbness on the lateral border of the foot, however, this has been long-standing and unchanged. He continues to walk with a cane, not because it helps with the pain but he is afraid ofhis knee giving out. He has been working with physical therapy which he thinks has improved his painoverall. He has no catching or locking symptoms. OBJECTIVE: GENERAL: Alert and oriented x3. No apparent distress. RESPIRATORY: Breathing without difficulty on room air. CARDIOVASCULAR: Has a palpable dorsalis pedis pulse on the left lower extremity. LEFT KNEE AND PROXIMAL LEG: Mild tenderness over the lateral fibula. He also has some mild pain overthe anteromedial tibia. He has no motion through the proximal tib-fib joint. He has full knee range of motion actively. He is stable to varus and valgus,. He fires EHL, FHL, tib ant and gastrocsoleus complex. Sensation is grossly intact throughout the foot including the lateral border, however, he states it is diminished. This diminished sensation is throughout the lateral part of the leg including proximal to the incision. IMAGING: X-rays and CT scan of his left knee were reviewed. There is a solid bony fusion of the proximal tib-fib joint. Screws are intact and are unchanged in position. 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 In terms of his radiographic findings, he has had a solid fusion of this tib-fib joint and no evidence of hardware breakage or loosening. He continues to have a nondescript pain but seems to localize to the area of the tib-fib joint. We discussed treatment options including continued therapy as well as hardware removal. We discussed that at this point it would be appropriate to have his hardware removed as he has a fusion. He is understanding of this and wishes to proceed. Patient was seen and discussed with Dr. Kameron Morales who agrees with the assessment and plan. I have personally examined this patient, and have reviewed the clinical presentation and progress note, including the pertinent radiographs, with the resident. I agree with the treatment plan as outlined. The plan was formulated with the resident on the day of the dictation and personally edited by mewhere appropriate. I personally discussed the treatment plan with the patient. Dictated by: Zeke Nevarez MD MTD: C: R:06/06/17 15:00 CONFIRM#:[id number] documented in this encounter Plan of Treatment Scheduled Referrals Name Type Priority Associated Diagnoses [facility] Referral Routine Surgery follow-up Ordere d: 06/06/2017 documented as of this encounter Results XR Knee Lt 2 Views (06/06/2017 1:59 PM CDT) Anatomical Region Laterality Modality Lower Extremity, Knee Digital Radiograph y Specimen (Source) Anatomical Location Collection Method / Collectio n Time Received Time / Laterality Volume Narrative 07/11/2017 12:51 PM CDT Lef knee. ?? He has had a solid fusion of this tib-fi b joint and no evidence of hardware breakage or loosening. Kameron Morales MD RAD GD documented in this encounter Visit Diagnoses Diagnosis Surgery follow-up - Primary Follow-up examination, following unspeci fied surgery Surgery follow-up Follow-up examination, following unspeci fied surgery documented in this encounter Care Teams Golf Course Starter Relationship Specialty Start Date End Date Lucero Fraire MD PCP - General 12/03/15 [address], [place] [address] documented as of this encounter
--- OUTSIDE RECORDS SUMMARY | 2022-10-06 11:35 | XMS_ITS | Encounter Summary ---
:1960 Author Organization [facility] Address [address] [place] [address] Care Team Providers Name Role Phone Lucero Fraire MD Primary Care Provider Reason for Visit Procedure/Equipment (Routine) - Incomplete Specialty Diagnoses / Procedures Referred By Contact Refer red To Contact Diagnoses Left leg injury, subsequent encounter Kameron Morales MD Procedures XR Knee Lt 2 Views [address] [facility] [place] [address] Referral ID Status Reason Start Date Expiration Date Visits V isits Requested Authorized [id number] Incomplete 12/06/2016 03/07/2018 1 1 Encounter Details Date Type Department Care Team Description 12/06/2016 Imaging [facility] Kameron Morales MD Left leg injury, [address] [facility] [address] [place] [address] subsequent encounter [place] [address] [place] [address] [phone] (Wo rk) Social History Tobacco Use Types [...] Name Priority Date/Time Associated Diagnosis Comme nts XR KNEE LT 2 VIEWS Routine 12/06/2016 3:26 PM Left leg injury, Results for this ELECTRONICS RESEARCH ENGINEER subsequent encounter procedu re are in the results section. documented in this encounter Results XR Knee Lt 2 Views (12/06/2016 3:26 PM ELECTRONICS RESEARCH ENGINEER) Anatomical Region Laterality Modality Lower Extremity, Knee Digital Radiograph y Specimen (Source) Anatomical Location Collection Method / Collectio n Time Received Time / Laterality Volume Narrative 12/27/2016 1:02 PM ELECTRONICS RESEARCH ENGINEER AP and lateral x-ray of the knee shows good position of the internal fixation. Kameron Morales MD RAD GD documented in this encounter Visit Diagnoses Diagnosis Left leg injury, subsequent encounter documented in this encounter Care Teams Race And Sports Book Writer Relationship Specialty Start Date End Date Lucero Fraire MD PCP - General 12/03/15 [address] [place] [address] documented as of this encounter
--- OUTSIDE RECORDS SUMMARY | 2022-10-06 11:35 | XMS_ITS | Encounter Summary ---
:1960 [facility] Address [address] [address] Care Team Providers Name Role Phone Lucero Fraire MD Primary Care Provider Reason for Visit Procedure/Equipment (Routine) - Incomplete Specialty Diagnoses / Procedures Referred By Contact Refer red To Contact Diagnoses Surgery follow-up Kameron Morales MD Procedures XR Tibia Fibula Lt 2 Views [address] [facility] [place] [address] Referral ID Status Reason Start Date Expiration Date Visits V isits Requested Authorized [id number] Incomplete 01/24/2017 04/25/2018 1 1 Encounter Details Date Type Department Care Team Description 01/24/2017 Imaging [facility] Kameron Morales MD Surgery follow-up [address] [facility] [address] [place] [address] [place] [address] [place] [address] [phone] (Wo rk) Social History Tobacco Use Types [...] Priority Date/Time Associated Diagnosis Comme nts XR TIBIA FIBULA LT Routine 01/24/2017 4:20 PM Surgery follow-u p Results for this 2 VIEWS OUTPATIENT PHARMACY MANAGER procedure are i n the results section. documented in this encounter Results XR Tibia Fibula Lt 2 Views (01/24/2017 4:20 PM OUTPATIENT PHARMACY MANAGER) Anatomical Region Laterality Modality Lower Extremity, Knee, Leg, Foot & Ankle Digital Radiography Specimen (Source) Anatomical Location Collection Method / Collectio n Time Received Time / Laterality Volume Narrative 02/07/2017 1:13 PM CDT X-rays show minimal changes of healing to the fusion site. Fixation is appropriate. Kameron Morales MD RAD GD documented in this encounter Visit Diagnoses Diagnosis Surgery follow-up Follow-up examination, following unspeci fied surgery documented in this encounter Care Teams Bulldogger Relationship Specialty Start Date End Date Lucero Fraire MD PCP - General 12/03/15 [address], [place] [address] documented as of this encounter
--- OUTSIDE RECORDS SUMMARY | 2022-10-06 11:35 | XMS_ITS | Encounter Summary ---
:1960 Author Organization [facility] Address [address], [place] [address] Care Team Providers Name Role Phone Lucero Fraire MD Primary Care Provider Reason for Referral Procedure/Equipment (Routine) - Incomplete Specialty Diagnoses / Procedures Referred By Contact Refer red To Contact Diagnoses Surgery follow-up Kameron Morales MD Procedures XR Knee Lt [address] [place] [address] [place], [place] [address] Referral ID Status Reason Start Date Expiration Date Visits V isits Requested Authorized [id number] Incomplete 07/11/2017 10/10/2018 1 1 Reason for Visit Reason Comments Knee Pain or Injury Left Encounter Details Date Type Department Care Team Description 07/11/2017 Office Visit [facility] Kameron Morales M D Surgery follow-up (Primary Dx); CENTER [address] [place] [address] Chronic pain of right knee [address] [place], [place] [address] [phone] (Wo rk) Social History Tobacco Use Types Packs/Day Years Used Date Smoking Tobacco: Former Smokeless Tobacco: Never Comments: Quit smoking: Alcohol Use Standard Drinks/Week Comments No 0 (1 standard drink = 0.6 oz pure alcoho l) Sex Assigned at Date Recorded Not on file documented as of this encounter Patient Instructions Patient InstructionsSoFaustina rasmussen - 07/11/2017 2:[address] Kameron Morales MD Orthopaedic Surgeon, Board Certified Access Service Representative: Faustina Oquendo Please contact Jane for all surgery scheduling and administrative questions at [phone] Please contact Nurse Triage for all medical related questions at [phone] Medication Requests: Prescriptions are not filled on Weekends or on Weekdays after 3:00PM For all medication refills: Request a refill using [employer] or contact your Pharmacy documented in this encounter Progress Notes Shantell Garcia, CAMPAIGN ADVISOR, UNMANNED EQUIPMENT OPERATOR - 07/11/2017 2:55 PM CDT NAME: SHASHANK HASTINGS MR#: [id number] CSN: [id number] AUTHENTICATING CLINICIAN: Kameron Morales MD CONFIRM #: [id number] LOC: 711 CLINIC PROGRESS NOTE DATE OF VISIT: 07/11/2017 : 1960 SUBJECTIVE: Carlo is seen 9 months post of his left proximal tib-fib fusion with internal fixation. He continues to have the same complaints, is scheduled to have hardware removal on August 08. Uses a cane or crutch for long distance walking. Rates his pain a 5. Has activity-related night pain. He reports thathis balance is off in fact, sustained a fall recently but has no documented and no reported injuries. PAST MEDICAL HISTORY: Reviewed. REVIEW OF SYSTEMS: Reviewed. PHYSICAL EXAM: GENERAL: Pleasant, cooperative male. Alert and oriented x3. Pleasant with the exam. LOWER EXTREMITIES: Has some dysesthesias over the lateral aspect of the prominent screw heads. Rangeof motion is near full to the knee. No knee effusion is noted. He has no pain to the fusion site. Itis stable on exam with no acute neuromuscular deficits. Full sensation is noted. Calf is nontender to palpate. IMAGING: X-rays were taken, which show continued healing with no change in position of the hardware. DIAGNOSIS: Left proximal tib-fib fusion. PLAN: The natural progression plan of care was discussed. Work ability was again discussed that would include sedentary activities. Will go ahead and proceed with hardware removal with a followup at that time. Dictated by: Shantell Garcia, RN, UNMANNED EQUIPMENT OPERATOR MTD:RENAN C: R:07/11/17 15:01 CONFIRM#:[id number] Electronically signed by Shantell Garcia, CAMPAIGN ADVISOR, UNMANNED EQUIPMENT OPERATOR at 08/08/2017 10:57 AM CDT documented in this encounter Plan of Treatment Not on filedocumented as of this encounter Results XR Knee Lt 2 Views (07/11/2017 2:39 PM CDT) Anatomical Region Laterality Modality Lower Extremity, Knee Digital Radiograph y Specimen (Source) Anatomical Location Collection Method / Collectio n Time Received Time / Laterality Volume Narrative 08/08/2017 6:14 PM CDT This result has an attachment that is no t available. X-rays show continued healing with no ch luis antonio in position of the hardware. Kameron Morales MD RAD GD documented in this encounter Visit Diagnoses Diagnosis Surgery follow-up - Primary Follow-up examination, following unspeci fied surgery Chronic pain of right knee Surgery follow-up Follow-up examination, following unspeci fied surgery documented in this encounter Care Teams Information Systems Security Specialist Relationship Specialty Start Date End Date Lucero Fraire MD PCP - General 12/03/15 [address] [place] [address] documented as of this encounter
--- OUTSIDE RECORDS SUMMARY | 2022-10-06 11:35 | XMS_ITS | Encounter Summary ---
:1960 Author Organization [facility] Address [address] [address] Care Team Providers Name Role Phone Lucero Fraire MD Primary Care Provider Reason for Referral Procedure/Equipment (Routine) - Incomplete Specialty Diagnoses / Procedures Referred By Contact Refer red To Contact Diagnoses Malunion of joint fusion, subsequent encounter (HRC) Kameron Morales MD Procedures Ultrasonic bone stimulator (Exogen) (E0760) [address] [facility] [place], [place] [address] Referral ID Status Reason Start Date Expiration Date Visits V isits Requested Authorized [id number] Incomplete 02/07/2017 05/09/2018 1 1 Reason for Visit Reason Onset Date Comments Orders Needed 02/01/2017 bone stim Encounter Details Date Type Department Care Team Description 02/01/2017 Telephone [facility] Kameron Morales M D Orders Needed (bone CENTER [address] [facility] stim) [address] [place], [place] [phone] (Wo rk) Social History Tobacco Use Types Packs/Day Years Used Date Smoking Tobacco: Former Comments: Quit smoking: Alcohol Use Standard Drinks/Week Comments No 0 (1 standard drink = 0.6 oz pure alcoho l) Sex Assigned at Date Recorded Not on file documented as of this encounter Nursing Notes Sade Draper, RN - 02/07/2017 10:07 AM CDT New order generated for bone stimulator with different dx and MD signature. Requested per [place]. Order faxed to [facility] to the attention of Triston Murcia at [phone]. documented in this encounter Plan of Treatment Not on filedocumented as of this encounter Visit Diagnoses Diagnosis Malunion of joint fusion, subsequent enc ounter (HRC) - Primary documented in this encounter Care Teams Solder Technician Relationship Specialty Start Date End Date Lucero Fraire MD PCP - General 12/03/15 [address], [place] [address] documented as of this encounter
--- OUTSIDE RECORDS SUMMARY | 2022-10-06 11:35 | XMS_ITS | Encounter Summary ---
:1960 Author Organization [facility] Address [address], [place] [address] Care Team Providers Name Role Phone Lucero Fraire MD Primary Care Provider Reason for Referral Procedure/Equipment (Routine) - Incomplete Specialty Diagnoses / Procedures Referred By Contact Refer red To Contact Diagnoses Surgery, elective Kameron Morales MD Procedures REGGIE Fluoroscopy Up To 1 Hour [address] [facility] [place], [place] [address] Referral ID Status Reason Start Date Expiration Date Visits V isits Requested Authorized [id number] Incomplete 08/05/2017 11/04/2018 1 1 Encounter Details Date Type Department Care Team Description 08/05/2017 Notes/Orders [facility] Kameron Morales M D Surgery, elective CENTER [address] [place] [address] (Primary Dx) [address] [place], [place] [phone] (Wo rk) Social History Tobacco Use Types Packs/Day Years Used Date Smoking Tobacco: Former Smokeless Tobacco: Never Comments: Quit smoking: Alcohol Use Standard Drinks/Week Comments No 0 (1 standard drink = 0.6 oz pure alcoho l) Sex Assigned at Date Recorded Not on file documented as of this encounter Plan of Treatment Not on filedocumented as of this encounter Results REGGIE Fluoroscopy Up To 1 Hour (08/08/2017 1:01 PM CDT) Anatomical Region Laterality Modality Radiographic Imaging Specimen (Source) Anatomical Location Collection Method / Collectio n Time Received Time / Laterality Volume Kameron Morales MD RAD NON-REPORTABLES documented in this encounter Visit Diagnoses Diagnosis Surgery, elective - Primary Unspecified elective surgery for purpose s other than remedying health states documented in this encounter Care Teams Hopper Filler Relationship Specialty Start Date End Date Lucero Fraire MD PCP - General 12/03/15 [address], [place] [address] documented as of this encounter
--- OUTSIDE RECORDS SUMMARY | 2022-10-06 11:35 | XMS_ITS | Clinical Summary ---
:1960 Author Organization [facility] Address [address], [place] [address] Care Team Providers Name Role Phone Lucero Fraire MD Primary Care Provider Source Comments You are receiving this document as you are listed as the primary care provider,follow-up provider, or the patient has been referred to you for consultation.This is in compliance with the Medicare and Medicaid EHR Incentive Program,which states Providers who transition their patient to another setting of careor provider of care or refers their patient to another provider of care shouldprovide summarycare record for each transition of care or referral. [facility] Allergies No known active allergies Medications Medication Sig Dispensed Refills Start Date End Date Status mometasone (AKA 2 sprays by Each 17 3 10/11/2008 Active NASONEX) 50 MCG/ACT Nostril route daily nasal solution (every 24 hours). esomeprazole (AKA Take 1 capsule by 30 0 11/26/2007 Active NEXIUM) 20 MG capsule mouth daily (every 24 hours). LW Addl Instr:Indicated for: Acid Reflux unknown medication Indications: PN: 0 10/11/2008 Active simvastatin (AKA Take 1 tablet by 90 3 10/11/2008 Active ZOCOR) 10 MG tablet mouth every evening. LW Addl Instr:Indicated for: High Cholesterol aspirin 81 MG tablet Take 1 tablet by 90 3 10/11/2008 Active mouth daily (every 24 hours). HYDROcodone-acetamino Take 1 tablet by 0 07/03/2011 Active phen (AKA mouth every 6 hours VICODIN,LORTAB) 5-500 as needed. MG tablet buPROPion Take 75 mg by mouth 0 10/08/2014 Active (WELLBUTRIN) 75 MG 3 times daily. tabletIndications: PUSHPA MERCADO Oct 08, 2014 4:49 PM Pt unsure of strength pantoprazole Take 40 mg by mouth 0 Active (PROTONIX) 40 MG daily. tablet aspirin EC (ECOTRIN) Take 1 Tab by mouth 30 Tab 0 6 Active 325 MG enteric coated daily. tablet acetaminophen Take 1-2 Tabs by 100 Tab 0 09/27/2016 Active (TYLENOL) 325 MG mouth every 4 hours tablet as needed for Fever. Maximum acetaminophen dose is 4000 mg in 24 hours. oxyCODONE Take 1 Tab by mouth 40 Tab 0 10/04/2016 Active (ROXICODONE) 5 MG every 4 hours as immediate release needed for Pain. tablet oxyCODONE Take 1 Tab by mouth 60 Tab 0 10/11/2016 Active (ROXICODONE) 5 MG every 4 hours as immediate release needed. tablet Meloxicam (MOBIC) 15 Take 1 Tab by mouth 30 Tab 0 6 Active MG tablet daily. HYDROcodone-acetamino Take 1-2 Tabs by 60 Tab 0 10/25/2016 Active phen (NORCO) 5-325 MG mouth every 8 hours tabletIndications: as needed. Surgery follow-up, Left knee pain, unspecified chronicity escitalopram oxalate Take 5 mg by mouth 0 Active (LEXAPRO) 5 MG tablet daily. atorvastatin Take 40 mg by mouth 0 Active (LIPITOR) 40 MG daily. tablet diazePAM (VALIUM) 2 Take 2 mg by mouth 0 Active MG tablet as needed for Anxiety. fluticasone (FLONASE) Place 2 Sprays into 0 Active 50 MCG/ACT nasal both nostrils solution daily. acetaminophen Take 1 Tab by mouth 50 Tab 0 08/08/2017 Active (TYLENOL) 500 MG every 4 hours as tablet needed for Pain for up to 50 doses. Maximum acetaminophen dose is 4000 mg in 24 hours. HYDROcodone-acetamino Take 1 Tab by mouth 30 Tab 0 08/08/20 17 Active phen (NORCO) 5-325 MG every 6 hours as tablet needed for Pain for up to 30 doses. Maximum acetaminophen dose is 4000 mg in 24 hours. ondansetron Take 1 Tab by mouth 4 Tab 0 08/08/2017 Active (ZOFRAN-ODT) 4 MG every 8 hours as disintegrating tablet needed for Nausea (Vomiting) for up to 4 doses. Dissolve tablet on tongue. Active Problems Problem Noted Date Tobacco use disorder 04/27/2003 Overview: Tobacco Abuse Lumbago 04/27/2003 Overview: Pain Low Back Immunizations Name Administration Dates Next Due Hib (ActHIB) 02/16/1994 PPSV23 (Pneumovax) 02/16/1994 TDAP (BOOSTRIX) 10/08/2014 Social History Tobacco Use Types Packs/Day Years Used Date Smoking Tobacco: Former Smokeless Tobacco: Never Comments: Quit smoking: Alcohol Use Standard Drinks/Week Comments No 0 (1 standard drink = 0.6 oz pure alcoho l) Sex Assigned at Date Recorded Not on file Last Filed Vital Signs Vital Sign Reading Time Taken Comments Blood Pressure 99/62 08/08/2017 2:22 PM CDT Pulse 61 08/08/2017 2:22 PM CDT Temperature 36.4 ??C (97.5 ??F) 08/08/2017 2:22 PM CDT Respiratory Rate 16 08/08/2017 2:22 PM CDT Oxygen Saturation 96% 08/08/2017 2:22 PM CDT Inhaled Oxygen Concentration - - Weight 95.7 kg (211 lb) 08/08/2017 9:25 AM CDT Height 173.4 cm (5' 8.27) 08/08/2017 9:25 AM CDT Body Mass Index 31.83 08/08/2017 9:25 AM CDT Plan of Treatment Health Maintenance Due Date Last Done Comments Colon Cancer Screening Plan Due 1960 Hep C Screening (Preventive 1960 Services) PSA Screening Discussion 1960 COVID-19 Vaccine (#1) 03/22/1959 HIV Screening (Preventive 1974 Services) Adult Preventive Visit 1976 Cholesterol 1993 Zoster/Shingles (1 of 2) 2008 Influenza (#1) 2022 DTaP/Tdap/Td (2 - Tdap) 10/08/2024 10/08/2014 Hib Aged Out 02/16/1994 No longer maria de jesusb mihai based on patient's age to complete this topic Pneumococcal Aged Out 02/16/1994 No longer eligib le based on patient's age to complete this topic HepA Aged Out No longer eligib le based on patient's age to complete this topic HepB Aged Out No longer eligib le based on patient's age to complete this topic IPV (Polio) Aged Out No longer eligib le based on patient's age to complete this topic MCV4 Aged Out No longer eligib le based on patient's age to complete this topic Medical Devices Implanted Type Area Commissary Officer Device Shelf Model / Serial Identifier Expiration / Lot Date Washer Lg Scr 13.0mm Od - [id number] DEVICE Left: [employer] [id number] / Implanted: Qty: 2 on 09/27/2016 by Kameron Morales MD at [facility] LEG 0 / 0 Insurance Payer Benefit Plan / Subscriber ID Effective Phone Address T ype Group Dates [place]OY[place] [id number] 2015-Pre [address] Workers Comp [employer] [place] [address] [place] [id number] 2017-Pres [address] [id number] [place] [address] Darling, Personal/Famil Self 1960 [id number] [phone] [place] (Work) [address] Darling, Personal/Famil Self 1960 [id number] [phone] [employer] (Work) [address] [id number], Workers Comp Employer 1960 [id number] [phone] [employer] (Work) [address] [id number], Workers Comp Employer 1960 [id number] [phone] [place] (Work) [address] Advance Directives Latest Code Status on File Code Status Date Activated Date Inactivated Comments Full Code 08/08/2017 1:07 PM 08/08/2017 5:07 PM Full code in effect for 30 days Code Status History Code Status Date Activated Date Inactivated Comments Full Code 09/27/2016 10:03 AM 09/27/2016 1:23 PM Full code i n effect for 30 days Care Teams Marketing Research Intern Relationship Specialty Start Date End Date Lucero Fraire MD PCP - General 12/03/15 [address] [place] [address]
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
--- OUTSIDE RECORDS SUMMARY | 2022-10-06 11:35 | XMS_ITS | Encounter Summary ---
:1960 Author Organization [facility] Address [address] [address] Care Team Providers Name Role Phone Lucero Fraire MD Primary Care Provider Reason for Visit Procedure/Equipment (Routine) - Incomplete Specialty Diagnoses / Procedures Referred By Contact Refer red To Contact Diagnoses Surgery follow-up Kameron Morales MD Procedures XR Knee Lt 2 Views [address] [facility] [place] [address] Referral ID Status Reason Start Date Expiration Date Visits V isits Requested Authorized [id number] Incomplete 07/11/2017 10/10/2018 1 1 Encounter Details Date Type Department Care Team Description 07/11/2017 Imaging [facility] Kameron Morales MD Surgery follow-up [address] [facility] [address] [facility] [place] [address] [place] [address] [phone] (Wo rk) Social History Tobacco Use Types [...] nts XR KNEE LT 2 VIEWS Routine 07/11/2017 2:39 PM Surgery follow-u p Results for this CDT procedure are i [...] surgery documented in this encounter Care Teams Smalltalk Developer Relationship Specialty Start Date End Date Lucero Fraire MD PCP - General 12/03/[address] [place] [address] documented as of this encounter
--- OUTSIDE RECORDS SUMMARY | 2022-10-06 11:35 | XMS_ITS | Encounter Summary ---
:1960 Author Organization [facility] Address [address], [place] [address] Care Team Providers Name Role Phone Lucero Fraire MD Primary Care Provider Reason for Visit Procedure/Equipment (Routine) - Incomplete Specialty Diagnoses / Procedures Referred By Contact Refer red To Contact Diagnoses Acute pain of left knee Shantell Garcia, GIUSEPPE, HOSPITAL MANAGER Procedures XR Knee Lt 2 Views [address] [facility] [place], [place] [address] Referral ID Status Reason Start Date Expiration Date Visits V isits Requested Authorized [id number] Incomplete 08/22/2017 11/21/2018 1 1 Encounter Details Date Type Department Care Team Description 08/22/2017 Imaging [facility] Shantell Garcia, Acute pain of left knee [address] [facility] METAL MODEL BUILDER, HOSPITAL MANAGER [place], [place] [address] [address] [facility] [phone] [place] [address] (Wo rk) Social History Tobacco Use Types [...] nts XR KNEE LT 2 VIEWS Routine 08/22/2017 11:23 AM Acute pain of l eft Results for this CDT knee procedure are i n the results section. documented in this encounter Results XR Knee Lt 2 Views (08/22/2017 11:23 AM CDT) Anatomical Region Laterality Modality Lower Extremity, Knee Digital Radiograph y Specimen (Source) Anatomical Collection Method Collection Time Re ceived Time Location / / Volume Laterality 08/22/2017 11:17 AM CDT Narrative 08/22/2017 12:51 PM CDT COMPARISON: ??07/11/2017 FINDINGS: ??Fixation screws across the p roximal tibiofibular joint have been removed. The tibiofibular joint appears fused. No acute abnormality within the knee. No significant joint effusion. Minimal patellar spurring. Procedure Note Evin Beck MD - 08/22/2017Format ting of this note might be different from the original. COMPARISON: 07/11/2017 FINDINGS: Fixation screws across the pro ximal tibiofibular joint have been removed. The tibiofibular joint appears fused. No acute abnormality within the knee. No significant joint effusion. Minimal patellar spurring. Shantell Garcia METAL MODEL BUILDER, HOSPITAL MANAGER RAD GD documented in this encounter Visit Diagnoses Diagnosis Acute pain of left knee documented in this encounter Care Teams Barrel Assembler Helper Relationship Specialty Start Date End Date Lucero Fraire MD PCP - General 12/03/15 [address] [place] [address] documented as of this encounter
--- OUTSIDE RECORDS SUMMARY | 2022-10-06 11:35 | XMS_ITS | Encounter Summary ---
:1960 Author Organization [employer] Address [address] [address] Care Team Providers Name Role Phone Lucero Frarie MD Primary Care Provider Encounter Details Date Type Department Care Team Description 08/08/2017 Hospital Encounter [facility] S Kameron Morales MD [address] [facility] [address] [facility] [place], [place] [address] [place], [place] [phone] (Wo rk) Social History Tobacco Use Types [...] Mass Index 31.83 08/08/2017 9:25 AM CDT documented in this encounter Medications at Time of Discharge Medication Sig Dispensed Refills Start Date End Date acetaminophen (TYLENOL) Take 1-2 Tabs by mouth 100 Tab 0 09/27/2016 325 MG tablet every 4 hours as needed for Fever. Maximum acetaminophen dose is 4000 mg in 24 hours. acetaminophen (TYLENOL) Take 1 Tab by mouth 50 Tab 0 500 MG tablet every 4 hours as needed for Pain for up to 50 doses. Maximum acetaminophen dose is 4000 mg in 24 hours. aspirin 81 MG tablet Take 1 tablet by mouth 90 3 daily (every 24 hours). aspirin EC (ECOTRIN) Take 1 Tab by mouth 30 Tab 0 2015 325 MG enteric coated daily. tablet atorvastatin (LIPITOR) Take 40 mg by mouth 0 40 MG tablet daily. buPROPion (WELLBUTRIN) Take 75 mg by mouth 3 0 75 MG times daily. tabletIndications: JESS ANDREASLEYLA Friedman Oct 08, 2014 4:49 PM Pt unsure of strength diazePAM (VALIUM) 2 MG Take 2 mg by mouth as 0 tablet needed for Anxiety. escitalopram oxalate Take 5 mg by mouth 0 (LEXAPRO) 5 MG tablet daily. esomeprazole (AKA Take 1 capsule by 30 0 11/26/2007 NEXIUM) 20 MG capsule mouth daily (every 24 hours). LW Addl Instr:Indicated for: Acid Reflux fluticasone (FLONASE) Place 2 Sprays into 0 50 MCG/ACT nasal both nostrils daily. solution HYDROcodone-acetaminoph Take 1 tablet by mouth 0 07/03/2011 en (AKA VICODIN,LORTAB) every 6 hours as 5-500 MG tablet needed. HYDROcodone-acetaminoph Take 1 Tab by mouth 30 Tab 0 en (NORCO) 5-325 MG every 6 hours as tablet needed for Pain for up to 30 doses. Maximum acetaminophen dose is 4000 mg in 24 hours. HYDROcodone-acetaminoph Take 1-2 Tabs by mouth 60 Tab 0 10/25/2016 en (NORCO) 5-325 MG every 8 hours as tabletIndications: needed. Surgery follow-up, Left knee pain, unspecified chronicity Meloxicam (MOBIC) 15 MG Take 1 Tab by mouth 30 Tab 0 tablet daily. mometasone (AKA 2 sprays by Each 17 3 10/11/2008 NASONEX) 50 MCG/ACT Nostril route daily nasal solution (every 24 hours). ondansetron Take 1 Tab by mouth 4 Tab 0 08/08/2017 (ZOFRAN-ODT) 4 MG every 8 hours as disintegrating tablet needed for Nausea (Vomiting) for up to 4 doses. Dissolve tablet on tongue. oxyCODONE (ROXICODONE) Take 1 Tab by mouth 60 Tab 0 09/22 5 MG immediate release every 4 hours as tablet needed. oxyCODONE (ROXICODONE) Take 1 Tab by mouth 40 Tab 0 09/21 5 MG immediate release every 4 hours as tablet needed for Pain. pantoprazole (PROTONIX) Take 40 mg by mouth 0 40 MG tablet daily. simvastatin (AKA ZOCOR) Take 1 tablet by mouth 90 3 10/11/2008 10 MG tablet every evening. LW Addl Instr:Indicated for: High Cholesterol unknown medication Indications: PN: 0 10/11/2008 aspirin EC (ECOTRIN) Take 1 Tab by mouth 14 Tab 0 201608/22/2017 325 MG enteric coated daily for 14 doses. tablet ketorolac (TORADOL) 10 Take 1 Tab by mouth 4 Tab 0 07/2208/09/2017 MG tablet every 6 hours for 4 doses. documented as of this encounter Procedure Notes Kameron Morales MD - 08/08/2017 12:39 PM CDT [facility] Brief Operative Progress Note Surgery Date: 08/08/2017 Surgeon(s) and Role: * Kameron Morales MD - Primary Pre-op Diagnosis: * Leg pain, left [M79.605] Post-op Diagnosis: * Leg pain, left [M79.605] Procedure(s) (LRB): LEFT tibia and fibula hardware removal (Left) EBL: <10 cc Specimens: * No specimens in log * Complications / Findings: Solid proximal tibiofibula fusion Kameron Morales MD Kameron Morales MD - 08/08/2017 12:00 PM CDT NAME: SHASHANK HASTINGS MR#: [id number] CSN: [id number] AUTHENTICATING CLINICIAN: Kameron Morales MD CONFIRM #: [id number] LOC: 725 OPERATIVE REPORT DATE OF OPERATION: 08/08/2017 : 1960 SURGEON: Kameron Morales MD MANAGER TRADE MARKETING: Roberto Beltrán PA-C. It was medically necessary for a physician assistant field hockey coach to assist in the surgical care of this patient.There was no resident physician available for assistance. PREOPERATIVE DIAGNOSIS: Retained hardware, left knee. POSTOPERATIVE DIAGNOSIS: Retained hardware, left knee. PROCEDURE PERFORMED: Removal of 2 screws and 2 washers left upper tibia. PROCEDURE: Under general anesthesia in the supine position, the left knee was prepped and draped in the usual sterile fashion. A [id number]-cause occurred and all present were in agreement. We made a small incision medially, identifying the medial screw and washer. These were removed without difficulty. We irrigated and closed in layers and injected Marcaine with epinephrine in the periosteum. We exposed the lateral screw and washer through a 10 mm lateral incision, sharply identifying the screw, removing the screw as well as the washer. We irrigated and injected Marcaine with epinephrine. We took an x-ray of the knee internally rotated which showed massive healing from the tibia to the fibula. The patient had layered wound closure, compression bandage applied to the knee. MTD: C: R:08/08/17 15:08 CONFIRM#:[id number] ET CASTER documented in this encounter Miscellaneous Notes OR Nursing - Kala Atkinson RN - 08/08/2017 12:28 PM CDT The following hardware were removed from the patient, and per protocol, terminally sterilized and returned to patient: Screw(s) - 2 documented in this encounter Plan of Treatment Scheduled Orders Name Type Priority Associated Diagnoses Order S chedule POCT Glucose: Point of Care Routine Once today st arting now for 1 Occurrences s tarting 08/08/2017 unti l 08/08/2017 documented as of this encounter Procedures Procedure Name Priority Date/Time Associated Diagnosis Comme nts REMOVAL HARDWARE LOWER 08/08/2017 12:03 PM CDT Leg ludy n, left EXTREMITY documented in this encounter Visit Diagnoses Not on filedocumented in this encounter Administered Medications Inactive Administered Medications - up to 3 most recent administrations Medication Order MAR Action Action Date Dose Rate Site acetaminophen (TYLENOL) tablet 325-650 m g 325-650 mg, Oral, Q4H PRN, Fever, Mild Pain (pain scor e 1-4) (OR elevated temperature), Starting on Tue08/08/17 at 1307, Until Tue08/08/17 at 1702, Give for mild pain or if patient prefers acetamin ophen over other options for pain (all pain scores)., Post-op bupivacaine (PF) (aka SENSORCAINE) Given 08/08/2017 12:39 PM CDT 10 mL Left Leg 0.5% injection ONCE PRN, Starting on Tue08/08/17 at 1237, Until Tue08/08/17 at 1702, Intra-op fentaNYL (SUBLIMAZE) injection 25-50 mcg Given 08/08/2017 1:41 PM CDT 50 mcg 25-50 mcg, Intravenous, [id number], Other, Moderate to Severe Pain (pain score 5 and above) in the immediate postop period when faster on-set, short acting agent is desired., Starting on Tue08/08/17 at 0944, Until Tue08/08/17 at 1702, Administer every 5 minutes as needed, to a maximum cumulative dose of 250 mcg. For patients with a regional, spinal, or local anesthetic, may give for anticipated pain as the anesthetic wears off., PACU/Recovery Given 08/08/2017 1:36 PM CDT 50 mcg HYDROcodone-acetaminophen (NORCO) 5-325 MG Given 08/08 2:30 PM CDT 1 Tablet per tablet 1-2 Tab 1-2 Tablet, Oral, Q4H PRN, Other, Moderate Pain (pain score 5-7), Starting on Tue08/08/17 at 1307, Until Tue08/08/17 at 1702, Post-op ketorolac (TORADOL) tablet 10 mg 10 mg, Oral, Q6H (NON-STND), First dose on Tue08/08/17 at 1330, Last dose on Tue08/13/17 at 0730, For 5 days, Post-op oxyCODONE (ROXICODONE) immediate release tablet 5 mg 5 mg, Oral, Q4H PRN, Other, Severe Pain (pain score 8-10), Starting on Tue08/08/17 at 1307, Until Tue08/08/17 at 1702, Post-op documented in this encounter Active and Recently Administered Medications Times are shown in CDT. Scheduled Medication Order 08/06/2017 08/07/2017 08/08/2017 chloroprocaine (NESACAINE) 3 % injection 2 mL 1330 (Due) 2 mL, Regional Nerve Block, ONCE, Tue08/08/17 at 1330, For 1 dos e, Pre-op fentaNYL (SUBLIMAZE) injection 25-50 mcg 1330 (Due) 25-50 mcg, Intravenous, ONCE, Tue 7 at 1330, For 1 dose, Notify Anesthesiologist if total cumulative dose in excess of 250 mcg., Pre-op ketorolac (TORADOL) tablet 10 mg 1330 (Due) 10 mg, Oral, Q6H (NON-STND), First dose on Tue08/08/17 at 1330, For 5 days, Post-op midazolam (VERSED) injection 1-2 mg 1330 (Due) 1-2 mg, Intravenous, ONCE, Tue08/08/17 at 1330, For 1 dose, Pre- op Continuous Medication Order 08/06/2017 08/07/2017 08/08/2017 lactated ringers infusion 1330 ( Due) Intravenous, at 30 mL/hr, CONTINUOUS, Starting Tue08/08/17 at 13 30, Pre-op PRN Medication Order 08/06/2017 08/07/2017 08/08/2017 acetaminophen (TYLENOL) tablet 325-650 mg 325-650 mg, Oral, Q4H PRN, Fever, Mild P ain (pain score 1-4) (OR elevated temperature), Starting Tue08/08/17 at 1307, Give for mild pain or if patient prefers acetaminophen over other options for pain (all pain scores)., Post-op bupivacaine (PF) (aka SENSORCAINE) 0.5% injection 1237 (Canceled Entry - Provider: Kameron Morales MD)1239 (Given - Provider: Kameron Morales MD) ONCE PRN, Starting Tue08/08/17 at 1237, Intra-op fentaNYL (SUBLIMAZE) injection 25-50 mcg 1336 (Given - Provider: Anisa Min, RN)1341 (Given - Provider: Anisa Min, DESTIN) 25-50 mcg, Intravenous, [id number], Other, Moderate to Severe Pain (pain score 5 and above) in the immediate postop period when faster on-set, short acting agent is desired., Starting Tue08/08/17 at 0944, Administer every 5 minutes as needed, t o a maximum cumulative dose of 250 mcg. For patients with a regional, spinal, or local anesthetic, may give for anticipated pain as the anesthetic wears off., PACU/Recovery HYDROcodone-acetaminophen (NORCO) 5-325 MG per tablet 1-2 Tab 1430 (Given - Provider: Rena Wright RN) 1-2 Tab, Oral, Q4H PRN, Other, Moderate Pain (pain score 5-7), Starting Tue08/08/17 at 1307, Post-op HYDROmorphone injectable 0.2-0.4 mg 0.2-0.4 mg, Intravenous, Q10MIN PRN, Oth er, : Moderate to Severe Pain (pain score 5 and above) in the immediate postop period when longer acting agent is desired., Starting Tue08/08/17 at 0944, Maximum cumulative dose is 2 mg. For patients wi th a regional, spinal, or local anesthetic, may give for anticipated pain as the anesthetic wears off., PACU/Recovery meperidine (DEMEROL) injection 12.5 mg 12.5 mg, Intravenous, [id number], Shiverin g, Starting Tue08/08/17 at 0944, For 2 doses, Maximum cumulative dose is 25 mg. Do not give to patients receiving MAO inhibitors (e.g. phenelzine (NARDIL), tranyl cypromine (PARNATE), selegiline (ELDEPRYL))., PACU/Recovery morphine injectable 1-3 mg 1-3 mg, Intravenous, [id number], Other, Mo derate to Severe Pain (pain score 5 and above) Moderate to Severe Pain (pain score 5 and above) in the immediate postop period when longer acting agent is desired and HYDROmorphone is not tolerated., St zeeing 08/08/17 at 0944, Maximum cumulative dose is 12 mg. For patients with a regional, spinal, or local anesthetic, may give for anticipated pain as the anesthetic wears off., PACU/Recovery ondansetron (ZOFRAN) injection 4 mg 4 mg, Intravenous, Q4H PRN, Nausea, Vomi ting, Starting Tue08/08/17 at 0944, If multiple medications are ordered for nausea or vomiting - administer in the following priority based on medications ordered , effectiveness and availability: ondans etron (ZOFRAN) > prochlorPERAZINE (COMPAZINE) > diphenhydrAMINE (BENADRYL) > hydrOXYzine HCl (VISTARIL)> ePHEDrine > scopolamine (TRANSDERM-SCOP)., PACU/Recovery oxyCODONE (ROXICODONE) immediate release tablet 5 mg 5 mg, Oral, Q4H PRN, Other, Severe Pain (pain score 8-10), Starting Tue08/08/17 at 1307, Post-op documented in this encounter Care Teams E Business Consultant Relationship Specialty Start Date End Date Lucero Fraire MD PCP - General 12/03/15 [address] [place] [address] documented as of this encounter
--- OUTSIDE RECORDS SUMMARY | 2022-10-06 11:35 | XMS_ITS | Encounter Summary ---
:1960 Author Organization [employer] Address [address], [place] [address] Care Team Providers Name Role Phone Lucero Fraire MD Primary Care Provider Reason for Referral Therapies (Routine) - Closed Specialty Diagnoses / Procedures Referred By Contact Refer red To Contact Diagnoses Left knee pain, unspecified chronicity Shantell Garcia APRN, CNP [address] [place] [address] [place], [place] [address] Referral ID Status Reason Start Date Expiration Date Visits Requ ested Visits Authorized [id number] Closed 04/25/2017 06/24/2017 1 1 Scheduling Instructions If scheduling assistance is needed, awilda lira inquire with the medical office staff upon exiting your appointment or contact the ordering clinic for recommended locations. This recommended service/s may not be co darek by your insurance coverage. To find out your specific benefit coverage, please c all the number on your insurance card. Reason for Visit Reason Comments Knee Pain or Injury Left Encounter Details Date Type Department Care Team Description 04/25/2017 Office Visit Kameron López M D Left knee pain, CENTER [address] [facility] unspecified [address] [place], [place] chronicity (Primary [place], [place] [id number] Dx) [phone] (Wo rk) Social History Tobacco Use Types Packs/Day Years Used Date Smoking Tobacco: Former Comments: Quit smoking: Alcohol Use Standard Drinks/Week Comments No 0 (1 standard drink = 0.6 oz pure alcoho l) Sex Assigned at Date Recorded Not on file documented as of this encounter Patient Instructions Patient InstructionsJessica Benson - 04/25/2017 1:[address] Kameron Morales MD Orthopaedic Surgeon, Board Certified Medical Support Specialist: Faustina Oquendo Please contact Jane for all surgery scheduling and administrative questions at [phone] Please contact Nurse Triage for all medical related questions at [phone] Medication Requests: Prescriptions are not filled on Weekends or on Weekdays after 3:00PM For all medication refills: Request a refill using MyChart or contact your Pharmacy Follow up as needed documented in this encounter Progress Notes Kameron Morales MD - 04/25/2017 1:55 PM CDT NAME: SHASHANK HASTINGS MR#: [id number] CSN: [id number] AUTHENTICATING CLINICIAN: Kameron Morales MD CONFIRM #: [id number] LOC: 711 CLINIC PROGRESS NOTE DATE OF VISIT: 04/25/2017 : 1960 Shashank states that he still notes lancinating pains episodically in the region of the left proximal tib-fib joint. He states that his knee loli. He does state that he is somewhat better. PHYSICAL EXAM: Exam reveals no instability. His incision is healed. Neurocirculatory status is intact. IMAGING: CT scan demonstrates what appears to be solid union between the tibia and the fibula with screws in place. ASSESSMENT: Healing left proximal tib-fib fusion site. TREATMENT: I have advised him to see the therapist for isometrics, quad sets and gentle strengthening exercises. Progress with his activities increasing as he goes and using the bone stimulator daily with a recheck x-ray in 6 weeks to include an AP, lateral and oblique x-ray internally rotated. MTD: C: R:04/25/17 14:03 CONFIRM#:[id number] documented in this encounter Plan of Treatment Scheduled Referrals Name Type Priority Associated Diagnoses Order S chedule Physical Therapy Referral Routine Left knee pain, unspecif ied Ordered: 04/25/2017 chronicity documented as of this encounter Visit Diagnoses Diagnosis Left knee pain, unspecified chronicity - Primary documented in this encounter Care Teams Borough Coordinator Relationship Specialty Start Date End Date Lucero Fraire MD PCP - General 12/03/15 [address] [place] [address] documented as of this encounter
--- OUTSIDE RECORDS SUMMARY | 2022-10-06 11:35 | XMS_ITS | Encounter Summary ---
:1960 Author Organization [facility] Address [address], [place] [address] Care Team Providers Name Role Phone Lucero Fraire MD Primary Care Provider Reason for Referral Therapies (Routine) - Closed Specialty Diagnoses / Procedures Referred By Contact Refer red To Contact Diagnoses Acute pain of left knee Shantell Garcia APRN, CNP [address] [address] Referral ID Status Reason Start Date Expiration Date Visits Requ ested Visits Authorized [id number] Closed 08/22/2017 10/21/2017 1 1 Scheduling Instructions Your provider has recommended an appoint ment with [facility]. You may call [phone] to schedule your appoi ntment. If you do not schedule an appointment within the next 1 to 3 business days, we will call you to help arrange your appointment. We suggest you call your [employer] insurance company about your coverage and benefits for this appointment. Procedure/Equipment (Routine) - Incomplete Specialty Diagnoses / Procedures Referred By Contact Refer red To Contact Diagnoses Acute pain of left knee Shantell Garcia APRN, CNP Procedures XR Knee Lt 2 Views [address] [address] Referral ID Status Reason Start Date Expiration Date Visits V isits Requested Authorized [id number] Incomplete 08/22/2017 11/21/2018 1 1 Reason for Visit Reason Comments Knee Pain or Injury recheck left knee Encounter Details Date Type Department Care Team Description 08/22/2017 Office Visit [facility] Shantell Garcia, Acute pain of left CENTER ISIDRO CHIN knee (Primary Dx) [address] [facility] [address] [facility] [address] [address] [address] [phone] (Wo rk) Social History Tobacco Use Types Packs/Day Years Used Date Smoking Tobacco: Former Smokeless Tobacco: Never Comments: Quit smoking: Alcohol Use Standard Drinks/Week Comments No 0 (1 standard drink = 0.6 oz pure alcoho l) Sex Assigned at Date Recorded Not on file documented as of this encounter Patient Instructions Patient InstructionsStKiley castañeda - 08/22/2017 11:00 AM CDT Shantell Garcia RN TRANSFER MACHINE OPERATOR Nurse Practitioner Senior Animal Trainer: Faustina Oquendo Please contact Jane for all surgery scheduling and administrative questions at [phone] Please contact Nurse Triage for all medical related questions at [phone] Medication Requests: Prescriptions are not filled on Weekends or on Weekdays after 3:00PM For all medication refills: Request a refill using MyChart or contact your Pharmacy documented in this encounter Plan of Treatment Scheduled Referrals Name Type Priority Associated Diagnoses Order S [facility] Physical Therapy Referral Routine Acute pain of left knee Ordered: 08/22/2017 documented as of this encounter Results XR [...] joint effusion. Minimal patellar spurring. Shantell Garcia ELECTRICIANS TOP HELPER, TRANSFER MACHINE OPERATOR RAD GD documented in this encounter Visit Diagnoses Diagnosis Acute pain of left knee - Primary Acute pain of left knee documented in this encounter Care Teams Quantitative Equity Head Relationship Specialty Start Date End Date Lucero Fraire MD PCP - General 12/03/15 [address] [place] [address] documented as of this encounter
--- OUTSIDE RECORDS SUMMARY | 2022-10-06 11:35 | XMS_ITS | Encounter Summary ---
:1960 Author Organization [facility] Address [address] [address] Care Team Providers Name Role Phone Lucero Fraire MD Primary Care Provider Reason for Visit Procedure/Equipment (Routine) - Incomplete Specialty Diagnoses / Procedures Referred By Contact Refer red To Contact Diagnoses Surgery follow-up Shantell Garcia APRN, [facility] Procedures CT Knee Lt WO IV Cont [address] [facility] [place], [place] [address] Referral ID Status Reason Start Date Expiration Date Visits V isits Requested Authorized [id number] Incomplete 03/21/2017 06/20/2018 1 1 Encounter Details Date Type Department Care Team Description 04/22/[address] Scan Shantell Garcia APRN, Surgery follow-up [address] [place] [address] [address] [facility] [phone] [place] [address] (Wo rk) Social History Tobacco Use Types [...] Priority Date/Time Associated Diagnosis Comme nts CT KNEE LT WO IV Routine 04/22/2017 10:24 AM Surgery follow-up Results for this CONT CDT procedure are i n the results section. documented in this encounter Results CT Knee Lt WO IV Cont (04/22/2017 10:24 AM CDT) Anatomical Region Laterality Modality Lower Extremity, Knee, Leg, Skeletal, Thigh Computed Tomography Specimen (Source) Anatomical Collection Method Collection Time Re ceived Time Location / / Volume Laterality 04/22/2017 10:09 AM CDT Impressions 04/22/2017 11:22 AM CDT IMPRESSION: ?? 1. Postoperative arthrodesis of the prox imal tibiofibular joint with irregular osseous fusion involving approximately 50% of the joint space. 2. No evidence of hardware complications . Narrative 04/22/2017 11:22 AM CDT TECHNIQUE: ??Thin section axial scans were obtained through the left knee. Sagittal and coronal reconstruction was performed without contrast. COMPARISON: Radiograph 09/27/2016 FINDINGS: ??Postsurgical internal fixati on/arthrodesis of the proximal tibiofibular joint. No evidence of hardware loosening or hardware complications. Irregular osseous fusion involving approximately 5 0% of the proximal tibiofibular joint sp riri. Mild diffuse osteopenia. The remainder of the exam is unremarkable. ?? Procedure Note Kyler Wen MD - 04/22/2017For matting of this note might be different from the original. TECHNIQUE: Thin section axial scans were obtained through the left knee. Sagittal and coronal reconstruction was performed without contrast. COMPARISON: Radiograph 09/27/2016 FINDINGS: Postsurgical internal fixation /arthrodesis of the proximal tibiofibular joint. No evidence of hardware loosening or hardware complications. Irregular osseous fusion involving approximately 50% of the proximal tibiofibular joint space. Mild diffuse osteopenia. The remainder of the exam is unremarkable. IMPRESSION IMPRESSION: 1. Postoperative arthrodesis of the prox imal tibiofibular joint with irregular osseous fusion involving approximately 50% of the joint space. 2. No evidence of hardware complications . Shantell Garcia APRN, INFANTRY UNIT LEADER RAD CT documented in this encounter Visit Diagnoses Diagnosis Surgery follow-up Follow-up examination, following unspeci fied surgery documented in this encounter Care Teams Advice Clerk Relationship Specialty Start Date End Date Lucero Fraire MD PCP - General 12/03/[address] [place] [address] documented as of this encounter
--- OUTSIDE RECORDS SUMMARY | 2022-10-06 11:35 | XMS_ITS | Encounter Summary ---
:1960 Author Organization [facility] Address [address] [address] Care Team Providers Name Role Phone Lucero Fraire MD Primary Care Provider Reason for Visit Reason Onset Date Comments QUESTIONS, GENERAL 12/08/2016 Return to Work Encounter Details Date Type Department Care Team Description 12/08/2016 Telephone [facility] Kameron Morales M D QUESTIONS, GENERAL CENTER [address] [place] [address] (Return to Work) [address] [place], [place] [address] [phone] (Wo rk) Social History Tobacco Use Types Packs/Day Years Used Date Smoking Tobacco: Former Comments: Quit smoking: Alcohol Use Standard Drinks/Week Comments No 0 (1 standard drink = 0.6 oz pure alcoho l) Sex Assigned at Date Recorded Not on file documented as of this encounter Nursing Notes Alma Delia Garibay RN - 12/08/2016 3:28 PM CST [facility] calls. States pt is wanting to return to work on sedentary duty. Scott note does state he needs to be off heavy duty for 2 more months. Workability form filled out for sedentary duty and faxed to Alie at [phone]. ETRICIAN documented in this encounter Plan of Treatment Not on filedocumented as of this encounter Visit Diagnoses Not on filedocumented in this encounter Care Teams Laborer Shipyard Relationship Specialty Start Date End Date Lucero Fraire MD PCP - General 12/03/15 [address] [address] documented as of this encounter
--- OUTSIDE RECORDS SUMMARY | 2022-10-06 11:35 | XMS_ITS | Encounter Summary ---
:1960 Author Organization [facility] Address [address] [place] [address] Care Team Providers Name Role Phone Lucero Fraire MD Primary Care Provider Encounter Details Date Type Department Care Team Description 08/08/2017 Surgery [facility] Kameron Morlaes MD LEFT tibia and fibula [address] [facility] D[facility] [address] [facility] [address] hardware removal [place], [place] [address] [place], [place] [phone] (Wo rk) Social History Tobacco Use Types Packs/Day Years Used Date Smoking Tobacco: Former Smokeless Tobacco: Never Comments: Quit smoking: Alcohol Use Standard Drinks/Week Comments No 0 (1 standard drink = 0.6 oz pure alcoho l) Sex Assigned at Date Recorded Not on file documented as of this encounter Last Filed Vital Signs Vital Sign Reading Time Taken Comments Blood Pressure 98/66 08/08/2017 1:30 PM CDT Pulse 50 08/08/2017 1:30 PM CDT Temperature 36.4 ??C (97.6 ??F) 08/08/2017 1:00 PM CDT Respiratory Rate 16 08/08/2017 1:30 PM CDT Oxygen Saturation 95% 08/08/2017 1:30 PM CDT Inhaled Oxygen Concentration - - [...] 3 0 75 MG times daily. tabletIndications: PUSHPA MERCADO Oct 08, [...] 12:00 PM CDT NAME: SHASHANK HASTINGS MR#: [id number] CSN: [id number] AUTHENTICATING CLINICIAN: Kameron Morales MD CONFIRM #: [id number] LOC: 725 OPERATIVE REPORT DATE OF OPERATION: 08/08/2017 : 1960 SURGEON: Kameron Morales MD FARM PRODUCTS SHIPPER: Roberto Beltrán PA-C. It was medically necessary for a physician middle school assistant principal to assist in the surgical care of this patient.There was no resident physician available for assistance. PREOPERATIVE DIAGNOSIS: Retained hardware, left knee. POSTOPERATIVE DIAGNOSIS: Retained hardware, left knee. PROCEDURE PERFORMED: Removal of 2 screws and 2 washers left upper tibia. PROCEDURE: Under general anesthesia in the supine position, the left knee was prepped and draped in the usual sterile fashion. A vliqr-omg-wmg-cause occurred and all present were in agreement. [...] to the knee. MTD: C: R:08/08/17 15:08 CONFIRM#:[id number] E TRADER documented in this encounter Miscellaneous Notes OR [...] EXTREMITY documented in this encounter Visit Diagnoses Diagnosis Leg pain, left Pain in limb documented in this encounter Administered Medications Inactive [...] PM CDT 50 mcg 25-50 mcg, Intravenous, [id number], Other, Moderate to Severe Pain (pain score [...] Provider: Anisa Min, DESTIN) 25-50 mcg, Intravenous, [id number], Other, Moderate to Severe Pain (pain score [...] (DEMEROL) injection 12.5 mg 12.5 mg, Intravenous, [id number], Shiverin g, Starting Tue08/08/17 at 0944, For 2 doses, Maximum cumulative dose is 25 mg. Do not give to patients receiving MAO inhibitors (e.g. phenelzine (NARDIL), tranyl cypromine (PARNATE), selegiline (ELDEPRYL))., PACU/Recovery morphine injectable 1-3 mg 1-3 mg, Intravenous, [id number], Other, Mo derate to Severe Pain (pain score 5 and above) Moderate to Severe Pain (pain score 5 and above) in the immediate postop period when longer acting agent is desired and HYDROmorphone is not tolerated., St arting 08/08/17 at 0944, Maximum cumulative dose is [...] Post-op documented in this encounter Care Teams Sample Builder Relationship Specialty Start Date End Date Lucero Fraire MD PCP - General 12/03/15 [address] [place] [address] documented as of this encounter
--- OUTSIDE RECORDS SUMMARY | 2022-10-06 11:35 | XMS_ITS | Encounter Summary ---
:1960 Author Organization [facility] Address [address], [place] [address] Care Team Providers Name Role Phone Lucero Fraire MD Primary Care Provider Reason for Referral Procedure/Equipment (Routine) - Incomplete Specialty Diagnoses / Procedures Referred By Contact Refer red To Contact Diagnoses Left leg injury, subsequent encounter Kameron Morales MD Procedures XR Knee Lt 2 Views [address] [place], [place] [address] Referral ID Status Reason Start Date Expiration Date Visits V isits Requested Authorized [id number] Incomplete 12/06/2016 03/07/2018 1 1 RAL PROFESSIONAL Reason for Visit Reason Comments LEG PAIN Left leg and knee Encounter Details Date Type Department Care Team Description 12/06/2016 Office Visit [facility] Kameron Morales M D Left leg injury, CENTER [address] [place] [address] subsequent encounter [address] [place], [place] (Primary Dx) [place], [place] [address] [phone] (Wo rk) Social History Tobacco Use Types Packs/Day Years Used Date Smoking Tobacco: Former Comments: Quit smoking: Alcohol Use Standard Drinks/Week Comments No 0 (1 standard drink = 0.6 oz pure alcoho l) Sex Assigned at Date Recorded Not on file documented as of this encounter Progress Notes Kameron Morales MD - 12/08/2016 3:10 PM CST NAME: SHASHANK HASTINGS MR#: [id number] CSN: [id number] AUTHENTICATING CLINICIAN: Kameron Morales MD CONFIRM #: [id number] LOC: 711 CLINIC PROGRESS NOTE DATE OF VISIT: 12/06/2016 : 1960 Shashank is 8 weeks status post left proximal tib-fib joint fusion with internal fixation. He reports pain is diminishing. He states that he forgot his cane today in his son's truck. He reports persisting discomfort near the lateral ankle and hypesthesias in the lateral 3 toes. He states that the pain in his knee is diminishing. PHYSICAL EXAM: He walks with a prolonged stance phase on the left leg. This is actually the opposite of an antalgicgait. Motor exam is intact. Sensory exam is intact with the exception of the report of hypesthesias over the lateral 3 toes. The wound is benign. Knee motion is full. IMAGING: X-rays were ordered and independently reviewed by me. AP and lateral x-ray of the knee shows good position of the internal fixation. ASSESSMENT: Presumed healing left proximal tib-fib fusion with persisting reports of discomfort and a nonantalgic gait. TREATMENT: Will need to have him off heavy duty for another 2 months and then he can return to activities as tolerated. MTD:JONATHON C: R:12/06/16 15:44 CONFIRM#:[id number] RAL PROFESSIONAL documented in this encounter Plan of Treatment Not on filedocumented as of this encounter Results XR Knee Lt 2 Views (12/06/2016 3:26 PM FUNERAL PROFESSIONAL) Anatomical Region Laterality Modality Lower Extremity, Knee Digital Radiograph y Specimen (Source) Anatomical Location Collection Method / Collectio n Time Received Time / Laterality Volume Narrative 12/27/2016 1:02 PM FUNERAL PROFESSIONAL AP and lateral x-ray of the knee shows good position of the internal fixation. Kameron Morales MD RAD GD documented in this encounter Visit Diagnoses Diagnosis Left leg injury, subsequent encounter - Primary Left leg injury, subsequent encounter documented in this encounter Care Teams Air Pollution Specialist Relationship Specialty Start Date End Date Lucero Fraire MD PCP - General 12/03/15 [address] [place] [address] documented as of this encounter
--- OUTSIDE RECORDS SUMMARY | 2022-10-06 11:35 | XMS_ITS | Encounter Summary ---
:1960 Author Organization [facility] Address [address] [place] [address] Care Team Providers Name Role Phone Lucero Fraire MD Primary Care Provider Reason for Visit Procedure/Equipment (Routine) - Incomplete Specialty Diagnoses / Procedures Referred By Contact Refer red To Contact Diagnoses Surgery follow-up Kameron Morales MD Procedures XR Knee Lt [address] [facility] [place] [address] Referral ID Status Reason Start Date Expiration Date Visits V isits Requested Authorized [id number] Incomplete 06/06/2017 09/05/2018 1 1 Encounter Details Date Type Department Care Team Description 06/06/2017 Imaging [facility] Kameron Morales MD Surgery follow-up [address] [facility] [address] [facility] [place] [address] [address] [place] [address] [phone] (Wo rk) Social History Tobacco Use Types [...] nts XR KNEE LT 2 VIEWS Routine 06/06/2017 1:59 PM Surgery follow-u p Results for this [...] surgery documented in this encounter Care Teams Manager Of Revenue Relationship Specialty Start Date End Date Lucero Fraire MD PCP - General 12/03/15 [address], [place] [address] documented as of this encounter
--- OUTSIDE RECORDS SUMMARY | 2022-10-06 11:35 | XMS_ITS | Encounter Summary ---
:1960 Author Organization [facility] Address [address] [place] [address] Care Team Providers Name Role Phone Lucero Fraire MD Primary Care Provider Reason for Visit Procedure/Equipment (Routine) - Incomplete Specialty Diagnoses / Procedures Referred By Contact Refer red To Contact Diagnoses Surgery follow-up Kameron Morales MD Procedures XR Knee Lt 2 Views [address] [facility] [place] [address] Referral ID Status Reason Start Date Expiration Date Visits V isits Requested Authorized [id number] Incomplete 03/21/2017 06/20/2018 1 1 Encounter Details Date Type Department Care Team Description 03/21/2017 Imaging [facility] Kameron Morales MD Surgery follow-up [address] [facility] [address] [facility] [place] [address] [place] [address] [phone] (Wo rk) Social History Tobacco Use Types [...] nts XR KNEE LT 2 VIEWS Routine 03/21/2017 1:37 PM Surgery follow-u p Results for this CDT procedure are i n the results section. documented in this encounter Results XR Knee Lt 2 Views (03/21/2017 1:37 PM CDT) Anatomical Region Laterality Modality Lower Extremity, Knee Digital Radiograph y Specimen (Source) Anatomical Location Collection Method / Collectio n Time Received Time / Laterality Volume Narrative 04/04/2017 12:52 PM CDT AP and lateral x-ray of the knee shows what appears to be sclerosis in the anteroinferior aspect of the healing sit e with what appears to be lucency in the region of the proximal tib-fib elvira int. ?? Kameron Morales MD RAD GD documented in this encounter Visit Diagnoses Diagnosis Surgery follow-up Follow-up examination, following unspeci fied surgery documented in this encounter Care Teams Windows Support Engineer Relationship Specialty Start Date End Date Lucero Fraire MD PCP - General 12/03/15 [address], [place] [address] documented as of this encounter
--- OUTSIDE RECORDS SUMMARY | 2022-10-06 11:35 | XMS_ITS | Encounter Summary ---
:1960 Author Organization [facility] Address [address], [place] [address] Care Team Providers Name Role Phone Lucero Fraire MD Primary Care Provider Reason for Referral Procedure/Equipment (Routine) - Incomplete Specialty Diagnoses / Procedures Referred By Contact Refer red To Contact Diagnoses Surgery follow-up Shantell Garcia APRN, CNP Procedures CT Knee Lt WO IV Cont [address] [facility] [place], [place] [address] Referral ID Status Reason Start Date Expiration Date Visits V isits Requested Authorized [id number] Incomplete 03/21/2017 06/20/2018 1 1 Procedure/Equipment (Routine) - Incomplete Specialty Diagnoses / Procedures Referred By Contact Refer red To Contact Diagnoses Surgery follow-up Kameron Morales MD Procedures XR Knee Lt 2 Views [address] [facility] [address] [place], [place] [address] Referral ID Status Reason Start Date Expiration Date Visits V isits Requested Authorized [id number] Incomplete 03/21/2017 06/20/2018 1 1 Reason for Visit Reason Comments Knee Pain or Injury Left Encounter Details Date Type Department Care Team Description 03/21/2017 Office Visit [facility] Kamerno Morales M D Surgery follow-up (Primary Dx); CENTER [address] [facility] [address] [place] of joint fusion, subsequent enc ounter [address] [place], [place] [address] [phone] (Wo rk) Social History Tobacco Use Types Packs/Day Years Used Date Smoking Tobacco: Former Comments: Quit smoking: Alcohol Use Standard Drinks/Week Comments No 0 (1 standard drink = 0.6 oz pure alcoho l) Sex Assigned at Date Recorded Not on file documented as of this encounter Patient Instructions Patient InstructionsSoFaustina rasmussen - 03/21/2017 2:[address] Kameron Morales MD Orthopaedic Surgeon, Board Certified Gem Cutter: Faustina Oquendo Please contact Jane for all surgery scheduling and administrative questions at [phone] Please contact Nurse Triage for all medical related questions at [phone] Medication Requests: Prescriptions are not filled on Weekends or on Weekdays after 3:00PM For all medication refills: Request a refill using [facility] or contact your Pharmacy documented in this encounter Progress Notes Kameron Morales MD - 03/22/2017 3:42 PM CDT NAME: SHASHANK HASTINGS MR#: [id number] CSN: [id number] AUTHENTICATING CLINICIAN: Kameron Morales MD CONFIRM #: [id number] LOC: 711 CLINIC PROGRESS NOTE DATE OF VISIT: 03/21/2017 : 1960 Carlo reports persisting left lateral knee pain and a sensation of the knee giving way episodically.He never actually feels a subluxation of the knee, although he states that he feels the possibility that one would occur. He states that there is soreness on the lateral aspect of his leg at a level of4-6. He takes hydrocodone 2-3 per day for both chronic headache following a stroke and left lateral knee pain. He identifies numbness on the lateral 5th and 4th toe. PHYSICAL EXAM: He walks with antalgia on the left. He reports tenderness over the fibular head and the proximal tib-fib joint. He has no static or dynamic instability of the left knee. His motor exam is intact. Sensory exam is intact. However, he describes hypesthesias in the lateral border of the 5th and 4th toes. There is no edema. Wound is benign. IMAGING: X-rays were ordered and independently reviewed by me. AP and lateral x-ray of the knee shows what appears to be sclerosis in the anteroinferior aspect of the healing site with what appears to be lucency in the region of the proximal tib- fib joint. 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 TREATMENT: I have recommended a CT scan and if it is ununited I would remove the hardware and resect the joint.He understands and will proceed with a CT scan. MTD:JONATHON C: R:03/21/17 14:21 CONFIRM#:[id number] documented in this encounter Plan of Treatment Not on filedocumented as of this encounter Results CT Knee Lt WO [...] of hardware complications . Shantell Garcia APRN, TRANSISTOR TESTER RAD CT XR Knee Lt 2 Views (03/21/2017 1:37 [...] Primary Follow-up examination, following unspeci fied surgery [facility] follow-up Follow-up examination, following unspeci fied surgery Surgery follow-up Follow-up examination, following unspeci fied surgery documented in this encounter Care Teams Goring Cutter Relationship Specialty Start Date End Date Lucero Fraire MD PCP - General 12/03/15 [address], [place] [address] documented as of this encounter
--- OUTSIDE RECORDS SUMMARY | 2022-10-06 11:36 | XMS_ITS | Encounter Summary ---
:1960 Author Organization [employer] Address [address], [place] [address] Care Team Providers Name Role Phone Lucero Fraire MD Primary Care Provider Encounter Details Date Type Department Care Team Description 09/27/2016 Hospital Encounter [facility]ameron Morales MD [address] [facility] [address] [address] [facility] [place], [place] [address] [place], [place] [phone] (Wo rk) Social History Tobacco Use Types Packs/Day Years Used Date Smoking Tobacco: Former Comments: Quit smoking: Alcohol Use Standard Drinks/Week Comments No 0 (1 standard drink = 0.6 oz pure alcoho l) Sex Assigned at Date Recorded Not on file documented as of this encounter Last Filed Vital Signs Vital Sign Reading Time Taken Comments Blood Pressure 126/71 09/27/2016 10:45 AM SALES PROMOTION REPRESENTATIVE Pulse 96 09/27/2016 10:45 AM SALES PROMOTION REPRESENTATIVE Temperature 36.3 ??C (97.3 ??F) 09/27/2016 10:00 AM SALES PROMOTION REPRESENTATIVE Respiratory Rate 16 09/27/2016 10:45 AM SALES PROMOTION REPRESENTATIVE Oxygen Saturation 95% 09/27/2016 10:45 AM SALES PROMOTION REPRESENTATIVE Inhaled Oxygen Concentration - - Weight 93 kg (205 lb) 2016 3:43 PM CDT Height 172.7 cm (5' 8) 2016 3:43 PM CDT Body Mass Index 31.17 2016 3:43 PM CDT documented in this encounter Discharge Instructions Discharge Bebe Owens RN - 09/27/2016 10:09 AM SALES PROMOTION REPRESENTATIVE PT touch toe touch weight bearing left leg with walker. Ice left knee Elevate left leg Isometric quad sets left. Dressing change to gauze 4X4 and riri wrap two days Discharge Information The following was provided to the patient - Instruction sets: Caring for yourself after surgery Collateral information: How to prevent and treat constipation after surgery Recover Well Understanding Pain Patient take-homes: Brace Ice pack(s) S PROMOTION REPRESENTATIVE documented in this encounter Medications at Time [...] 2015 325 MG enteric coated daily. tablet buPROPion (WELLBUTRIN) Take 75 mg by mouth 3 0 75 MG times daily. tabletIndications: PUSHPA MERCADO Oct 08, 2014 4:49 PM Pt unsure of strength esomeprazole (AKA Take 1 capsule by 30 0 11/26/2007 NEXIUM) 20 MG capsule mouth daily (every 24 hours). LW Addl Instr:Indicated for: Acid Reflux HYDROcodone-acetaminoph Take 1 tablet by mouth 0 07/03/2011 en (AKA VICODIN,LORTAB) every 6 hours as 5-500 MG tablet needed. mometasone (AKA 2 sprays by Each 17 3 10/11/2008 NASONEX) 50 MCG/ACT Nostril route daily nasal solution (every 24 hours). pantoprazole (PROTONIX) Take 40 mg by mouth 0 40 MG tablet daily. simvastatin (AKA ZOCOR) Take 1 tablet by mouth 90 3 10/11/2008 10 MG tablet every evening. LW Addl Instr:Indicated for: High Cholesterol unknown medication Indications: PN: 0 10/11/2008 ketorolac (TORADOL) 10 Take 1 Tab by mouth 5 Tab 0 05/201610/02/2016 MG tablet every 6 hours for 20 doses. senna (SENOKOT) 8.6 MG Take 1 Tab by mouth at 100 Tab 0 1 11/27/2015 10/27/2016 tablet bedtime as needed for Constipation (Constipation (while on pain pills)) for up to 30 days. oxyCODONE (ROXICODONE) Take 1 Tab by mouth 40 Tab 0 05/201610/04/2016 5 MG immediate release every 4 hours as tablet needed for Pain. 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 PROCEDURE PERFORMED: Proximal tibiofibular joint arthrodesis with internal fixation and bone graft. INDICATION FOR SURGERY: Carlo has had 18 months of pain in the left proximal tibiofibular joint with a clinical exam consistent with instability of the joint and arthrosis and radiographic exam and prior injections positive forsymptomatic DJD of the left proximal tibiofibular joint with instability. Risks, goals and options were discussed in detail. He understood and he wished to proceed. PROCEDURE: Under general anesthesia in the supine position, the left knee was prepped and draped in the usual sterile fashion. Pause for the cause occurred and all present were in agreement. The limb was exsanguinated and tourniquet inflated to 300 mmHg. An 8 cm longitudinal lateral incision was made just anterior to the proximal tibiofibular joint. Theanterior compartment was exposed and the anterior compartment at its origin at the tibial tubercle and crest was taken down subperiosteally. The joint was exposed and the capsule was eroded and damaged. The joint was very unstable. Fibrocartilaginous tissue was noted within the joint. An osteotome, 1 cm in diameter was used to remove any residual hyaline cartilage and then curettage was performed on both sides of the joint with drilling of the joint with a 3.2 mm drill bit. I could reduce the joint easily by compression against the fibula against the posterolateral aspect of the tibia. The exposuredid not go to the posterior side of the fibula and the peroneal nerve was not exposed. I secured thejoint with a 32 mm partially- threaded solid 6.5 mm stainless steel screw with a single washer over the superolateral aspect of the joint. Before compressing it completely we injected 1 mL of demineralized bone matrix within the joint. We then compressed the joint very securely. We added a second screwfrom the medial side guiding it under direct vision with the fluoroscope from anteromedial to posterolateral just inferior to the previous screw. We could see that the drill bit entered the head of thefibula and did not protrude outside the fibula. We then used a 70 mm screw from anteromedial to posterolateral and further neutralized the joint with the screw. The joint was completely immobile and solidly compressed. We irrigated and closed the fascia over the arthrodesis site and closed in layers with Marcaine with epinephrine injected. There were no operative complications. MTD:ADARSH C: R:09/27/16 09:35 CONFIRM#:[id number] S PROMOTION REPRESENTATIVE documented in this encounter Plan of Treatment Scheduled Orders Name Type Priority Associated Diagnoses Order S chedule POCT Glucose: Point of Care Routine Once today st arting now for 1 Occurrences s tarting 09/27/2016 unti l 09/27/2016 documented as of this encounter Procedures Procedure Name Priority Date/Time Associated Diagnosis Comme nts FUSION KNEE JOINT 09/27/2016 7:36 AM SALES PROMOTION REPRESENTATIVE Tibial pain documented in this encounter Visit Diagnoses Not on filedocumented in this encounter Administered Medications Inactive Administered Medications - up to 3 most recent administrations Medication Order MAR Action Action Date Dose Rate Site bupivacaine-EPINEPHrine PF Given 09/27/2016 9:15 AM SALES PROMOTION REPRESENTATIVE 30 mL Left Leg (SENSORCAINE) 0.5% -1:[id number] injection 50 mL 50 mL, Regional Nerve Block, ONCE, On Tue09/27/16 at 0915, For 1 dose, Intra-op fentaNYL (SUBLIMAZE) injection 25-50 mcg Given 09/27/2016 9:25 AM SALES PROMOTION REPRESENTATIVE 50 mcg 25-50 mcg, Intravenous, [id number], Other, Moderate to Severe Pain (pain score 5 and above), Starting on Tue09/27/16 at 0653, Until Tue09/27/16 at 1323, Administer every 5 minutes as needed, to a maximum cumulative dose of 250 mcg. For patients with a regional, spinal, or local anesthetic, may give for anticipated pain as the anesthetic wears off., PACU/Recovery Given 09/27/2016 9:15 AM SALES PROMOTION REPRESENTATIVE 50 mcg hydrOXYzine HCl (VISTARIL) Given 09/27/2016 9:45 AM SALES PROMOTION REPRESENTATIVE 25 mg Right Quadriceps injection 25 mg 25 mg, Intramuscular, Q6H PRN, Pain, Starting on Tue09/27/16 at 0940, Until Tue09/27/16 at 1323 ketorolac (TORADOL) injection 30 mg Given 09/27/2016 10:30 AM SALES PROMOTION REPRESENTATIVE 30 mg 30 mg, Intravenous, ONCE (NON-SCHEDULED), Starting on Tue09/27/16 at 1123, Until Tue09/27/16 at 1323, For 48 hours, Intra-op oxyCODONE (ROXICODONE) immediate release Given 09/27/2016 10:16 AM SALES PROMOTION REPRESENTATIVE 5 mg tablet 5 mg 5 mg, Oral, Q4H PRN, Other, Severe Pain (pain score 8-10), Starting on Tue09/27/16 at 1002, Until Tue09/27/16 at 1323, For 40 doses, Caution: Look-alike, sound-alike medication., Post-op documented in this encounter Active and Recently Administered Medications Due to Daylight Saving Time, this section may contain times in both CDT and SALES PROMOTION REPRESENTATIVE. Scheduled Medication Order 09/25/2016 09/26/2016 09/27/2016 bupivacaine-EPINEPHrine PF (SENSORCAINE) 0.5% -1:[id number] injection 50 mL (COMPLETED) 0915 (Given - Provid er: Silvana Wood RN - Comment: For local infiltration at op site left knee) 50 mL, Regional Nerve Block, ONCE, Tue09/27/16 at 0915, For 1 do se, Intra-op ceFAZolin (aka ANCEF) 2 g in dextrose 100 ml IVPB (COMPLETED) 0733 (Given - Provider: Saturnino Yeboah APRN, SHERRY) 2 g, Intravenous, Administer over 30 Min utes, ONCE, On Tue09/27/16 at 0730, For 1 dose, Infuse within 60 minutes prior to incision; Re-dose 1 gram IV every 4 hours after initial dose until incision closed., Pre-op ketorolac (TORADOL) injection 30 mg (CANCELED) 1030 (Given - Provider: Bebe Amado, DESTIN) 30 mg, Intravenous, ONCE (NON-SCHEDULED) , Starting Tue09/27/16 at 1123, For 48 hours, Intra-op Continuous Medication Order 09/25/2016 09/26/2016 09/27/2016 lactated ringers infusion (CANCELED) 0716 (Started - Provider: Saturnino Yeboah APRN, SHERRY)0801 (Started - Provider: Saturnino Yeboah APRN, SHERRY)0905 (Anesthesia Fluid - Provider: Saturnino Yeboah APRN, SHERRY) Intravenous, at 30 mL/hr, CONTINUOUS, Starting Tue09/27/16 at 07 30, Pre-op PRN Medication Order 09/25/2016 09/26/2016 09/27/2016 fentaNYL (SUBLIMAZE) injection 25-50 mcg (CANCELED) 0915 (Given - Provider: Naima Spencer, DESTIN)0925 (Given - Provider: Naima Spencer RN) 25-50 mcg, Intravenous, [id number], Other, Moderate to Severe Pain (pain score 5 and above), Starting Tue09/27/16 at 0653, Administer every 5 minutes as needed, to a maximum cumulative dose of 250 mcg. Fo r patients with a regional, spinal, or l ocal anesthetic, may give for anticipated pain as the anesthetic wears off., PACU/Recovery HYDROmorphone injectable 0.2-0.4 mg (CANCELED) 0752 (Given - Provider: Saturnino Yeboah APRN, SHERRY)0804 (Given - Provider: Saturnino Yeboah APRN, SHERRY) 0.2-0.4 mg, Intravenous, Q10MIN PRN, Oth er, Moderate to Severe Pain (pain score 5 and above), Starting Tue09/27/16 at 0653, Maximum cumulative dose is 2 mg. For patients with a regional, spinal, or loca l anesthetic, may give for anticipated p ain as the anesthetic wears off., PACU/Recovery hydrOXYzine HCl (VISTARIL) injection 25 mg (CANCELED) 0945 (Given - Provider: Naima Spencer RN) 25 mg, Intramuscular, Q6H PRN, Pain, Starting Tue09/27/16 at 094 0 oxyCODONE (ROXICODONE) immediate release tablet 5 mg (CANCELED) 1016 (Given - Provider: Bebe Amado RN) 5 mg, Oral, Q4H PRN, Other, Severe Pain (pain score 8-10), Starting Tue09/27/16 at 1002, For 40 doses, Caution: Look-alike, sound-alike medication., Post-op documented in this encounter Care Teams Maintenance Apprentice Relationship Specialty Start Date End Date Lucero Fraire MD PCP - General 12/03/15 [address], [place] [address] documented as of this encounter
--- OUTSIDE RECORDS SUMMARY | 2022-10-06 11:36 | XMS_ITS | Encounter Summary ---
:1960 Author Organization [employer] Address [address], [place] [address] Care Team Providers Name Role Phone Lucero Fraire MD Primary Care Provider Encounter Details Date Type Department Care Team Description 06/21/2016 Imaging [facility] Pain of left lower extremity [address] [id number] Social History Tobacco Use Types Packs/Day Years Used Date Smoking Tobacco: Never Assessed Sex Assigned at Date Recorded Not on file documented as of this encounter Plan of Treatment Not on filedocumented as of this encounter Procedures Procedure Name Priority Date/Time Associated Diagnosis Comme nts FL INJECTION TIBIA Routine 06/21/2016 1:13 PM Pain of left low er Results for this FIBULA JOINT LT CDT extremity procedure ar e in the results section. documented in this encounter Results FL Injection Tibia Fibula Joint Lt (06/21/2016 1:13 PM CDT) Anatomical Region Laterality Modality Lower Extremity, Knee, Leg Other Specimen (Source) Anatomical Location Collection Method / Collectio n Time Received Time / Laterality Volume Narrative 06/21/2016 1:42 PM CDT FINDINGS: ??The risks, benefits, indications and alternatives were discussed with the patient who verbally relates understanding and agrees to proceed. ??Written and verbal informed consent was obtained . ??A time out was performed to verify p atient name, date of and site of procedure. ? The proximal left tibiofibular joint was localized and initialed utilizing fluoroscopy. ??The skin was prepped and draped in the normal sterile fashion. ??The superficial soft tissues were anesthetized with 1 mL of 1% lidocaine. ??The joint w as accessed utilizing a 25-gauge needle. ??Approxima tely 0.5 mL of Isovue was utilized to verify intra-articular needle location. ??Approximately 0.5 mL of Kenalog 40 mg/mL and 0.5 mL of 0.5% Marcaine was administe red into the joint space. ??The patient tolerated the procedure well without apparent complica tions and was discharged in stable condition. ??Pain threshold before injection was 8/10 and is 4/10 after injection. ? Procedure Note Nitin Graf MD - 07/16/2016Formatti ng of this note might be different from the original. FINDINGS: The risks, benefits, indicatio ns and alternatives were discussed with the patient who verbally relates understanding and agrees to proceed. Written and verbal informed consent was obtained. A time out was performed to verify patient name, date of and site of procedure. The proximal left tibiofibular joint was localized and initialed utilizing fluoroscopy. The skin was prepped and draped in the normal sterile fashion. The superficial soft tissues were anesthetized with 1 mL of 1% lidocaine. The joint was accessed utilizing a 25-gauge needle. Approximate ly 0.5 mL of Isovue was utilized to verify intra-articular needle location. Approximately 0.5 mL of Kenalog 40 mg/mL and 0.5 mL of 0.5% Marcaine was administered into the joint space. The patient tolerated the procedure well without apparent complica tions and was discharged in stable condition. Pain threshold before injection was 8/10 and is 4/10 after injection. Kameron Morales MD [facility] documented in this encounter Visit Diagnoses Diagnosis Pain of left lower extremity documented in this encounter Care Teams Fast Food Manager Relationship Specialty Start Date End Date Lucero Fraire MD PCP - General 12/03/15 [address], [place] [address] documented as of this encounter
--- OUTSIDE RECORDS SUMMARY | 2022-10-06 11:36 | XMS_ITS | Encounter Summary ---
:1960 Author Organization [employer] Address [address], [place] [address] Care Team Providers Name Role Phone Lucero Fraire MD Primary Care Provider Reason for Visit Reason Comments LEG PAIN Encounter Details Date Type Department Care Team Description 04/05/2016 Surgical Consult [facility] Kameron Morales MD Pain of left lower CENTER [address] [facility] extremity (Primary [address] [place], [place] Dx) [place] [address] [phone] Social History Tobacco Use Types Packs/Day Years Used Date Smoking Tobacco: Never Assessed Sex Assigned at Date Recorded Not on file documented as of this encounter Last Filed Vital Signs Vital Sign Reading Time Taken Comments Blood Pressure - - Pulse - - Temperature - - Respiratory Rate - - Oxygen Saturation - - Inhaled Oxygen Concentration - - Weight 95.3 kg (210 lb) 04/05/2016 1:00 PM CDT Height 172.7 cm (5' 8) 04/05/2016 1:00 PM CDT Body Mass Index 31.93 04/05/2016 1:00 PM CDT documented in this encounter Patient Instructions Patient InstructionsSoFaustina rasmussen - 04/05/2016 1:[address] Kameron Morales MD Orthopaedic Surgeon, Board Certified Deputy [place] Marshal: Faustina Oquendo Please contact Jane for all surgery scheduling and administrative questions at [phone] Please contact Nurse Triage for all medical related questions at [phone] Medication Requests: Prescriptions are not filled on Weekends or on Weekdays after 3:00PM For all medication refills: Request a refill using MyChart or contact your Pharmacy documented in this encounter Progress Notes Kameron Morales MD - 04/26/2016 5:45 PM CDT Progress Notes signed by Kameron Morales MD at 05/10/16 171 Author: Kameron Morales MD Service: (none) Author Type: Physician Filed: 05/10/161709 Note Time: 04/27/161137 Status: Signed Electric Motor Fitter: Kameron Morales MD (Physician) NAME: SHASHANK HASTINGS MR#: [id number] CSN: [id number] AUTHENTICATING CLINICIAN: Kameron Morales MD CONFIRM #: [id number] LOC: 711 CLINIC PROGRESS NOTE DATE OF VISIT: 04/05/2016 : 1960 Shsahank is seen in consultation at the request of Dr. Mazin Guerrero. CHIEF COMPLAINT: Left knee pain. 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 He noted significant pain but he was able to work through this and noted worsening pain over the weekend. He tried to work 3 days later but due to the pain he went to see his primary care physician and was told he had an IT band syndrome. He had restricted workactivities for sometime and then ultimately an MRI of the left knee was performed with the diagnosisand report of a cortisone injection being performed in the office without imaging in his proximal tib-fib joint. He reported that he received 3 day pain relief from this and declined a further injection. He was seen by Dr. Guerrero in November of this year evaluating him for additional concerns as he reported he was not improving. ALLERGIES: None known. CURRENT MEDICATIONS: Aspirin, bupropion, Nexium, hydrocodone with acetaminophen, Nasonex and simvastatin. PAST MEDICAL HISTORY: Positive for cerebral infarction in 2007. PAST SURGICAL HISTORY: No pertinent surgeries. FAMILY HISTORY: None pertinent. SOCIAL HISTORY: He is a former smoker. 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 REVIEW OF SYSTEMS: Positive for the left lateral knee pain in episodic moments with weightbearing. PHYSICAL EXAM: He is in no acute distress. He is alert and oriented x3. His affect is normal. He walks with an antalgic limp and uses a cane. He reports direct tenderness on palpation over the proximal tib-fib joint with slight swelling in the area. His knee is statically and dynamically stable. There is no swellingof the joint, no effusion. He is focally very tender on palpation of the tib-fib joint proximally. If I push on the fibula at midshaft he reports pain at the proximal tib-fib joint. I cannot detect distinct motion there. IMAGING: X-rays were independently reviewed. X-rays of the joint showed degenerative change with an oblique view. MRI scan has shown severe degenerative change of the proximal tib-fib joint. ASSESSMENT: Left knee pain associated with severe degenerative changes and acute twisting injury with disruptionof the proximal tib-fib ligament. TREATMENT: I believe it is appropriate to consider a proximal tib-fib joint fusion with cartilage removal and internal fixation but I would first like to have an arthrographically proven proximal tib-fib joint corticosteroid and Marcaine injection to help prove that this is really the source of his pain. This will be arranged and then we could consider a fusion of the joint on an outpatient basis. MTD: C: R:04/26/16 17:50 CONFIRM#:[id number] documented in this encounter Plan of Treatment Not on filedocumented as of this encounter Visit Diagnoses Diagnosis Pain of left lower extremity - Primary documented in this encounter Care Teams Taco Maker Relationship Specialty Start Date End Date Lucero Fraire MD PCP - General 12/03/15 [address] [place] [address] documented as of this encounter
--- OUTSIDE RECORDS SUMMARY | 2022-10-06 11:36 | XMS_ITS | Encounter Summary ---
:1960 Author Organization [employer] Address [address] [place] [address] Care Team Providers Name Role Phone Unassigned, Provider Primary Care Provider Unavailable Reason for Visit Reason Comments Laceration Encounter Details Date Type Department Care Team Description 10/08/2014 Hospital Encounter [facility] Blaine Pearson [place] [address] [id number] Social History Tobacco Use Types Packs/Day Years Used Date Smoking Tobacco: Never Assessed Sex Assigned at Date Recorded Not on file documented as of this encounter Last Filed Vital Signs Vital Sign Reading Time Taken Comments Blood Pressure 132/87 10/08/2014 4:50 PM DISTRIBUTION DISTRICT SUPERVISOR Pulse 98 10/08/2014 4:50 PM DISTRIBUTION DISTRICT SUPERVISOR Temperature 36.9 ??C (98.4 ??F) 10/08/2014 4:50 PM DISTRIBUTION DISTRICT SUPERVISOR Respiratory Rate 14 10/08/2014 4:50 PM DISTRIBUTION DISTRICT SUPERVISOR Oxygen Saturation - - Inhaled Oxygen Concentration - - Weight - - Height - - Body Mass Index - - documented in this encounter Medications at Time of Discharge Medication Sig Dispensed Refills Start Date End Date aspirin 81 MG tablet Take 1 tablet by mouth 90 3 daily (every 24 hours). buPROPion (WELLBUTRIN) Take 75 mg by mouth 3 0 75 MG times daily. tabletIndications: PUSHPA POWELL Oct 08, 2014 4:49 PM Pt unsure [...] route daily nasal solution (every 24 hours). simvastatin (AKA ZOCOR) Take 1 tablet by mouth 90 3 10/11/2008 10 MG tablet every evening. LW Addl Instr:Indicated for: High Cholesterol unknown medication Indications: PN: 0 10/11/2008 buPROPion (aka Take 75 mg by mouth 3 0 10/08/2014 05/28/2016 WELLBUTRIN) times daily. tabletIndications: PUSHPA POWELL Oct 08, 2014 4:49 PM Pt unsure of strength HYDROcodone-acetaminoph Take 1 tablet by mouth 0 07/03/2011 05/28/2016 en (aka VICODIN,LORTAB) every 6 hours as 5-500 MG tablet needed. documented as of this encounter ED Notes Blaine Pearson MD - 10/08/2014 6:38 PM CST ED Provider Notes by Blaine eParson MD at 10/08/141831 Author: Blaine Pearson MD Service: (none) Author Type: Physician Filed: 10/08/141837 Note Time: 10/08/141831 Status: Signed Pigment Processor: Blaine Pearson MD (Physician) Procedure Orders: 1. Notewriter Documentation: Laceration Repair [[id number]] ordered by Blaine Pearson MD at 10/08/141835 Subjective: Patient ID: Shashank Hastings is an 54 y.o. male. Chief Complaint: HPI Comments: Injury occurred at home today he was breaking up a toilet to dispose of it and cut histhumb on some of the sharp edge of a broken tank. Patient is a 54 y.o. male presenting with skin laceration. The history is provided by the patient. Laceration The incident occurred 3 to 5 hours ago. The laceration is located on the left hand. The laceration is 2 cm in size. The laceration mechanism was a broken glass. The pain is mild. He reports no foreign bodies present. His tetanus status is out of date. ROS Objective: BP 132/87 Pulse 98 Temp(Src) 36.9 ??C (98.4 ??F) (Oral) Resp 14 Physical Exam Constitutional: He is oriented to person, place, and time. Neurological: He is alert and oriented to person, place, and time. Skin: 2 cm laceration of the left thumb on the radial side of the digit is approximately at the level of the DIP joint, no involvement of the joint space or tendons. Laceration Repair Date/Time: 10/08/2014 6:36 PM Performed by: BLAINE PEARSON Authorized by: BLAINE PEARSON Consent: Verbal consent obtained. Risks and benefits: risks, benefits and alternatives were discussed Consent given by: patient Patient understanding: patient states understanding of the procedure being performed Patient identity confirmed: verbally with patient Body area: upper extremity Location details: left thumb Laceration length: 2 cm Foreign bodies: no foreign bodies Tendon involvement: none Nerve involvement: superficial Vascular damage: no Anesthesia: local infiltration Local anesthetic: lidocaine 2% without epinephrine Anesthetic total: 3 ml Patient sedated: no Preparation: Patient was prepped and draped in the usual sterile fashion. Irrigation solution: saline Amount of cleaning: standard Debridement: none Degree of undermining: none Skin closure: 4-0 nylon Number of sutures: 4 Technique: simple Approximation: close Approximation difficulty: simple Dressing: antibiotic ointment, gauze packing and pressure dressing Patient tolerance: Patient tolerated the procedure well with no immediate complications Comments: After closure bacitracin ,Telfa and a Coban wrap applied for dressing. Assessment: The encounter diagnosis was Laceration of thumb. MDM Plan: Medical record reviewed looks like is due for a tetanus immunization and provided the order for Boostrix today. Plan at least once daily dressing changes and wound cares are reviewed. If signs of infection develop recheck with Plan return in 10-14 days to consider suture removal. RIBUTION DISTRICT SUPERVISOR documented in this encounter Miscellaneous Notes Medication History - Jason Nunez MD - 10/08/2014 6:35 PM CST INPATIENT MEDS Encounter Date: 10/08/14 tetanus toxoid-reduced diphtheria toxoid-acellular pertussis vaccine adsorbed (BOOSTRIX) injection 0.5 mL Start Date:10/08/14, End Date:10/08/14, Frequency:ONCE Taken Dose Action User Route Site Recorded Comment Reason 10/08/141844 0.5 mL Given Oliva Smith RN Intramuscular Deltoid, Left 10/08/14 1835 - - buPROPion (WELLBUTRIN) 75 mg tablet Start Date:-, End Date:-, Frequency:3 TIMES DAILY *No Administrations Recorded RIBUTION DISTRICT SUPERVISOR documented in this encounter Plan of Treatment Not on filedocumented as of this encounter Visit Diagnoses Diagnosis Laceration of thumb Open wound of finger(s) , without mentio n of complication Triage Assessment Note - Pushpa Powell RN - 10/08/2014 4:48 PM CST Pt received laceration to left thumb. documented in this encounter Care Teams Capacity Planning Analyst Relationship Specialty Start Date End Date Unassigned, Provider PCP - General 10/27/00 12/02/[address] [place] [id number] documented as of this encounter
--- OUTSIDE RECORDS SUMMARY | 2022-10-06 11:36 | XMS_ITS | Encounter Summary ---
:1960 Author Organization [employer] Address [address] [place] [address] Care Team Providers Name Role Phone Lucero Fraire MD Primary Care Provider Encounter Details Date Type Department Care Team Description 09/27/2016 Surgery [facility] Kameron Morales MD Left proximal [address] [facility] Driv e [address] [facility] [address] tibia/fibula joint [place], [place] [address] [place], [place] fusion with internal [phone] fixation [phone] (Wo rk) Social History Tobacco Use Types Packs/Day Years Used Date Smoking Tobacco: Former Comments: Quit smoking: Alcohol Use Standard Drinks/Week Comments No 0 (1 standard drink = 0.6 oz pure alcoho l) Sex Assigned at Date Recorded Not on file documented as of this encounter Last Filed Vital Signs Vital Sign Reading Time Taken Comments Blood Pressure 126/80 09/27/2016 7:02 AM OPERATIONS ADVISOR Pulse 72 09/27/2016 7:02 AM OPERATIONS ADVISOR Temperature 36.7 ??C (98 ??F) 09/27/2016 7:02 AM OPERATIONS ADVISOR Respiratory Rate 14 09/27/2016 7:02 AM OPERATIONS ADVISOR Oxygen Saturation 95% 09/27/2016 7:02 AM OPERATIONS ADVISOR Inhaled Oxygen Concentration - - Weight 93 kg (205 lb) 2016 3:43 PM CDT Height 172.7 cm (5' 8) 2016 3:43 PM CDT Body Mass Index 31.17 2016 3:43 PM CDT documented in this encounter Discharge Instructions Discharge InstructionsErickson, Dannica B, RN - 09/27/2016 10:09 AM OPERATIONS ADVISOR PT touch toe touch weight bearing left [...] Understanding Pain Patient take-homes: Brace Ice pack(s) ATIONS ADVISOR documented in this encounter Medications at Time [...] 10:10 AM CST NAME: SHASHANK HASTINGS MR#: [id number] CSN: [id number] AUTHENTICATING CLINICIAN: Kameron Morales MD CONFIRM #: [id number] LOC: 725 OPERATIVE REPORT DATE OF OPERATION: 09/27/2016 : 1960 SURGEON: Kameron Morales MD GEAR SHAPER: NOLA Valles PREOPERATIVE DIAGNOSIS: Degenerative arthrosis left [...] operative complications. MTD:ADARSH C: R:09/27/16 09:35 CONFIRM#:[id number] ATIONS ADVISOR documented in this encounter Plan of Treatment Scheduled Orders Name Type Priority Associated Diagnoses Order S chedule POCT Glucose: Point of Care Routine Once today st arting now for 1 Occurrences s tarting 09/27/2016 unti l 09/27/2016 documented as of this encounter Procedures Procedure Name Priority Date/Time Associated Diagnosis Comme nts FUSION KNEE JOINT 09/27/2016 7:36 AM OPERATIONS ADVISOR Tibial pain documented in this encounter Visit Diagnoses Diagnosis Tibial pain documented in this encounter Administered Medications Inactive Administered Medications - up to 3 most recent administrations Medication Order MAR Action Action Date Dose Rate Site bupivacaine-EPINEPHrine PF Given 09/27/2016 9:15 AM OPERATIONS ADVISOR 30 mL Left Leg (SENSORCAINE) 0.5% -1:[id number] injection 50 mL 50 mL, Regional Nerve Block, ONCE, On Tue09/27/16 at 0915, For 1 dose, Intra-op fentaNYL (SUBLIMAZE) injection 25-50 mcg Given 09/27/2016 9:25 AM OPERATIONS ADVISOR 50 mcg 25-50 mcg, Intravenous, [id number], Other, Moderate to Severe Pain (pain score 5 and above), Starting on Tue09/27/16 at 0653, Until Tue09/27/16 at 1323, Administer every 5 minutes as needed, to a maximum cumulative dose of 250 mcg. For patients with a regional, spinal, or local anesthetic, may give for anticipated pain as the anesthetic wears off., PACU/Recovery Given 09/27/2016 9:15 AM OPERATIONS ADVISOR 50 mcg hydrOXYzine HCl (VISTARIL) Given 09/27/2016 9:45 AM OPERATIONS ADVISOR 25 mg Right Quadriceps injection 25 mg 25 mg, Intramuscular, Q6H PRN, Pain, Starting on Tue09/27/16 at 0940, Until Tue09/27/16 at 1323 ketorolac (TORADOL) injection 30 mg Given 09/27/2016 10:30 AM OPERATIONS ADVISOR 30 mg 30 mg, Intravenous, ONCE (NON-SCHEDULED), Starting on Tue09/27/16 at 1123, Until Tue09/27/16 at 1323, For 48 hours, Intra-op oxyCODONE (ROXICODONE) immediate release Given 09/27/2016 10:16 AM OPERATIONS ADVISOR 5 mg tablet 5 mg 5 mg, Oral, Q4H PRN, Other, Severe Pain (pain score 8-10), Starting on Tue09/27/16 at 1002, Until Tue09/27/16 at 1323, For 40 doses, Caution: Look-alike, sound-alike medication., Post-op documented in this encounter Active and Recently Administered Medications Due to Daylight Saving Time, this section may contain times in both CDT and OPERATIONS ADVISOR. Scheduled Medication Order 09/25/2016 09/26/2016 09/27/2016 bupivacaine-EPINEPHrine PF (SENSORCAINE) 0.5% -1:[id number] injection 50 mL (COMPLETED) 0915 (Given - [...] Provider: Naima Spencer RN) 25-50 mcg, Intravenous, [id number], Other, Moderate to Severe Pain (pain score [...] Post-op documented in this encounter Care Teams Panelboard Assembler Relationship Specialty Start Date End Date Lucero Fraire MD PCP - General 12/03/15 [address], [place] [address] documented as of this encounter
--- OUTSIDE RECORDS SUMMARY | 2022-10-06 11:36 | XMS_ITS | Encounter Summary ---
:1960 Author [facility] Address [address] [place] [address] Care Team Providers Name Role Phone Lucero Fraire MD Primary Care Provider Encounter Details Date Type Department Care Team Description 04/05/2016 Imaging [facility] Pain of left lower extremity [address] [place], [place] [address] Social History Tobacco Use Types Packs/Day Years Used Date Smoking Tobacco: Never Assessed Sex Assigned at Date Recorded Not on file documented as of this encounter Plan of Treatment Not on filedocumented as of this encounter Procedures Procedure Name Priority Date/Time Associated Diagnosis Comme nts XR KNEE LT 3 VIEWS Routine 04/05/2016 1:41 PM Pain of left low er Results for this CDT extremity procedure are i n the results section. XR TIBIA FIBULA LT Routine 04/05/2016 1:41 PM Pain of left low er Results for this 2 VIEWS CDT extremity procedure are i n the results section. documented in this encounter Results XR Tibia Fibula Lt 2 Views (04/05/2016 1:41 PM CDT) Anatomical Region Laterality Modality Lower Extremity, Knee, Leg, Foot & Ankle Other Specimen (Source) Anatomical Location Collection Method / Collectio n Time Received Time / Laterality Volume Narrative 06/07/2016 4:20 PM CDT X-rays of the joint showed degenerative change with the oblique view. Procedure Note Kameron Morales MD - 07/19/2016 X-rays of the joint showed degenerative change with the oblique view. Kameron Morales MD RAD GD XR Knee Lt 3 Views (04/05/2016 1:41 PM CDT) Anatomical Region Laterality Modality Lower Extremity, Knee Other Specimen (Source) Anatomical Location Collection Method / Collectio n Time Received Time / Laterality Volume Narrative 06/07/2016 4:20 PM CDT X-rays of the joint showed degenerative change with the oblique view. Procedure Note Kameron Morales MD - 07/19/2016 X-rays of the joint showed degenerative change with the oblique view. Kameron SOFIA documented in this encounter Visit Diagnoses Diagnosis Pain of left lower extremity documented in this encounter Care Teams Fancy Stitcher Relationship Specialty Start Date End Date Lucero Fraire MD PCP - General 12/03/15 [address], [place] [address] documented as of this encounter
--- OUTSIDE RECORDS SUMMARY | 2022-10-06 11:36 | XMS_ITS | Encounter Summary ---
:1960 Author Organization [employer] [facility] Address [address] [place] [address] Care Team Providers Name Role Phone Lucero Fraire MD Primary Care Provider Reason for Visit Procedure/Equipment (Routine) - Incomplete Specialty Diagnoses / Procedures Referred By Contact Refer red To Contact Diagnoses Surgery follow-up Kameron Morales MD Procedures XR Knee Lt 2 Views [address] [facility] [place] Jain [address] Referral ID Status Reason Start Date Expiration Date Visits V isits Requested Authorized [id number] Incomplete 10/25/2016 01/24/2018 1 1 Encounter Details Date Type Department Care Team Description 10/25/2016 Imaging [facility] Kameron Morales MD Surgery follow-up [address] [facility] [address] [facility] [address] [address] [place] [address] [phone] (Wo rk) Social History Tobacco Use Types [...] nts XR KNEE LT 2 VIEWS Routine 10/25/2016 1:44 PM Surgery follow-u p Results for this HEALTHCARE RECRUITER procedure are i n the results section. documented in this encounter Results XR Knee Lt 2 Views (10/25/2016 1:44 PM HEALTHCARE RECRUITER) Anatomical Region Laterality Modality Lower Extremity, Knee Digital Radiograph y Specimen (Source) Anatomical Location Collection Method / Collectio n Time Received Time / Laterality Volume Narrative 11/08/2016 7:11 AM HEALTHCARE RECRUITER Two view x-rays were taken which show excellent healing and fixation of the fusion site. Kameron Morales MD RAD GD documented in this encounter Visit Diagnoses Diagnosis Surgery follow-up Follow-up examination, following unspeci fied surgery documented in this encounter Care Teams Efficiency Engineer Relationship Specialty Start Date End Date Lucero Fraire MD PCP - General 12/03/15 [address], [place] [address] documented as of this encounter
--- OUTSIDE RECORDS SUMMARY | 2022-10-06 11:36 | XMS_ITS | Encounter Summary ---
:1960 Author Organization [employer] Address [address] [place] [address] Care Team Providers Name Role Phone Unassigned, Provider Primary Care Provider Unavailable Reason for Visit Reason Comments BITE, INSECT Encounter Details Date Type Department Care Team Description 07/03/2011 Hospital Encounter [facility] Radha Fischer, JOSELINEC Cellulitis [address] [address] [facility] [phone] [place], [place] [id number] (Wo rk) Social History Tobacco Use Types Packs/Day Years Used Date Smoking Tobacco: Never Assessed Sex Assigned at Date Recorded Not on file documented as of this encounter Last Filed Vital Signs Vital Sign Reading Time Taken Comments Blood Pressure 116/80 07/03/2011 8:12 AM CDT Pulse 72 07/03/2011 8:12 AM CDT Temperature 37.1 ??C (98.8 ??F) 07/03/2011 8:12 AM CDT Respiratory Rate 16 07/03/2011 8:12 AM CDT Oxygen Saturation - - Inhaled Oxygen Concentration - - Weight - - Height - - Body Mass Index - - documented in this encounter Medications at Time of Discharge Medication Sig Dispensed Refills Start Date End Date aspirin 81 MG tablet Take 1 tablet by mouth 90 3 daily (every 24 hours). esomeprazole (AKA Take 1 [...] Cholesterol unknown medication Indications: PN: 0 10/11/2008 traMADol (aka ULTRAM) Take 50 mg by mouth 0 07/0310/08/2014 tablet every 6 hours as needed. HYDROcodone-acetaminoph Take 1 tablet by mouth 0 07/03/2011 05/28/2016 en (aka VICODIN,LORTAB) every 6 hours as 5-500 MG tablet needed. documented as of this encounter ED Notes Radha Fischer PA-C - 07/03/2011 8:26 AM CDT Clinic Visit SUBJECTIVE: History of Present Illness: Shashank Hastings is a 50 y.o. male who presents with concern for possible insect bite. States that yesterday he noticed a red patch on the medial aspect of the right ankle. He is wondering if it might of been an insect bites. He does not recall any specific insect bites or tick bites. States that it was very itchy. He is nonetheless painful. He's noticed that the redness seems to be increasing. He's felt like he sat hot flashes but denies any fevers. No drainage or discharge. Denies flu like symptoms. No medications taken at this point. No history of MRSA. No other areas of rashes or sores. PMH: History reviewed. No pertinent past medical history. Allergies: No Known Allergies medications: Reviewed in EMR Review of Systems: All systems were reviewed and found to be negative except as noted below. OBJECTIVE: Filed Vitals: 07/03/11 0812 BP: 116/80 Pulse: 72 Temp: 37.1 ??C (98.8 ??F) TempSrc: Oral Resp: 16 General: NAD. Does not appear in pain. Interactive. Skin: He has a 1 mm scabbed lesion noted on the medial aspect of the ankle. Surrounding this is 3 cmof erythema. The area is warm to the touch. No tenderness. Mild induration but no abscess palpable. No drainage or discharge. Skin exam is otherwise unremarkable. No foreign body noted. ASSESSMENT: 1. right ankle cellulitis PLAN: prescription for Keflex 500 mg t.i.d. x7 days given. Side effect profile is reviewed. I did Kameron the area of erythema. If the redness goes beyond these markings, patient will return for reevaluation. Tylenol/Motrin p.r.n. discomfort. He'll watch his symptoms closely. Otherwise followup p.r.n. He is ag reeable to this plan. All questions are answered. Patient is in stable condition. documented in this encounter Miscellaneous Notes Medication History - Jason Nunez MD - 07/03/2011 8:26 AM CDT INPATIENT MEDS Encounter Date: 07/03/11 cephALEXin (KEFLEX) 500 mg capsule Start Date:07/03/11, End Date:07/10/11, Frequency:3 TIMES DAILY *No Administrations Recorded traMADol (ULTRAM) 50 mg tablet Start Date:-, End Date:10/08/14, Frequency:EVERY 6 HOURS PRN *No Administrations Recorded HYDROcodone-acetaminophen (VICODIN) 5-500 mg per tablet Start Date:-, End Date:-, Frequency:EVERY 6 HOURS PRN *No Administrations Recorded documented in this encounter Plan of Treatment Not on filedocumented as of this encounter Visit Diagnoses Diagnosis Cellulitis Cellulitis and abscess of unspecified si te documented in this encounter Care Teams Roofing Applicator Relationship Specialty Start Date End Date Unassigned, Provider PCP - General 10/27/00 12/02/[address] [place] [address] documented as of this encounter
--- OUTSIDE RECORDS SUMMARY | 2022-10-06 11:36 | XMS_ITS | Encounter Summary ---
:1960 Author Organization [employer] Address [address] [address] Care Team Providers Name Role Phone Lucero Fraire MD Primary Care Provider Reason for Visit Reason Comments INJURY, KNEE Encounter Details Date Type Department Care Team Description 12/03/2015 Surgical Consult [facility] Mazin Guerrero MD Osteoarthritis of lower extremity (Prima ry Dx); CENTER [address] [facility] Left knee pain [address] [place] [address] [address] [place], [place] [phone] (Work) [phone] Social History Tobacco Use Types Packs/Day Years Used Date Smoking Tobacco: Never Assessed Sex Assigned at Date Recorded Not on file documented as of this encounter Last Filed Vital Signs Vital Sign Reading Time Taken Comments Blood Pressure 141/95 12/03/2015 9:32 AM SHADE BANDER Pulse 89 12/03/2015 9:32 AM SHADE BANDER Temperature - - Respiratory Rate - - Oxygen Saturation - - Inhaled Oxygen Concentration - - Weight 98.9 kg (218 lb) 12/03/2015 9:32 AM SHADE BANDER Height 175.3 cm (5' 9.02) 12/03/2015 9:32 AM SHADE BANDER Body Mass Index 32.18 12/03/2015 9:32 AM SHADE BANDER documented in this encounter Patient Instructions Patient InstructionsClaritza Eisenberg MA - 12/03/2015 9:[address] Mazin Guerrero MD Orthopaedic Surgeon Physician Family And Consumer Sciences Professor: Tete Garcia Distributor Advertising Material: Brenda Peña Please contact Brenda with all administrative questions at [phone] Nurse: Neeta Lopez Please contact Neeta for any medical questions at [phone] Medication Requests: Prescriptions are not filled on Weekends or on Weekdays after 3:00PM For all medication refills: Request a refill using MyChart or contact your Pharmacy E BANDER documented in this encounter Progress Notes Mazin Guerrero MD - 12/09/2015 3:39 PM CST [facility] Consultation 12/03/2015 The patient presents today in the company of their [facility], who was present during the whole interview Chief Complaint: Left knee pain History of Present Illness: Shashank Hastings is a 55 y.o. male who presents for evaluation of left knee pain. The patient states he received a Cortisone injection to his left knee in March of 2015 at [facility]. The patient states that he had 0/10 pain afterwards and denies any other history of problems in this left knee. 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 He did not go in to have this evaluated initially, but had progressive worsening of his pain over the weekend. He tried working on 08/17, but due to the pain went to see his primary that same day. He was told this was likely IT band syndrome and he was provided with work restrictions. No radiographs were performed at that time. The patient ultimately had an MRI of the left kneeperformed and this was later followed by [facility]. He was evaluated by Dr. Cleary at [facility] in August of 2015 where he was provided with a Cortisone injection for degenerative changes of his proximal tib/fib. This only provided him with 3 days relief. He returned to [facility] the interim and was offered another injection, but deferred. He presents here today for further evaluation of his pain. The patient continues experiencing pain over the lateral aspect of his knee. This is worse walking and prolonged sitting, in particular flexion and extension of the knee. The patient has had no numbness or tingling. He voices no further concerns at this time. Allergies: No known drug allergies Current Medications: The patient has a current medication list which includes the following prescription(s): aspirin, bupropion, nexium, hydrocodone-acetaminophen, nasonex, op medications reviewed, and simvastatin. Past Medical History: The patient has a past medical history of Unspecified cerebral artery occlusion with cerebral infarction (HRC) (2007). Past Surgical History: No past pertinent surgical history Family History: No past pertinent family history Social History: . Former smoker. 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 The General Medical History Form dated 12/03/2015 was updated and reviewed with the patient; this is located in [facility] in [facility]. Review of Systems: No swelling. No thigh/calf pain. No signs of infection. No numbness or tingling. Physical Exam: General: The patient is in no acute distress. Neuro: Answers questions appropriately. Left Knee: No effusion. Tenderness to palpation over the proximal tib/fib joint with overlying soft tissue swelling. Stable to varus and valgus stress. Negative posterior drawer. Negative Jack's test. No peroneal nerve signs or symptoms. Imaging: MRI of the left knee from outside facility independently reviewed: This demonstrates severe degenerative changes of the proximal tib/fib joint. Small knee joint effusion is noted. Trace fluid in the popliteal bursa. Moderate soft tissue edema is identified about the proximal tibiofibular joint. Assessment: Diagnosis ICD-10-CM ICD-9-CM 1. 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 Left knee pain M25.562 719.46 Plan: Educated the patient regarding the condition and management, in detail. It was noted that this tib/fib has been degenerative in nature, though it may have been aggravated by his injury at work. I discussed with the patient, in detail, the risks and benefits associated with the different treatment options available to them including conservative management (rest, activity modification, medial lateral brace, and oral pain medication), cortisone injection, and surgical intervention including proximal tib/fib joint fusion. The patient voiced understanding of the information discussed, and at this time, elects to proceed with a proximal tib/fib Cortisone injection under fluoroscopy. This will be ordered today. In addition, he has been recommended to follow up with Dr. Kameron Morales for further discussion of surgical intervention. He will follow up as needed. All questions were answered. The patient presents today in the company of their [facility], who was present during the whole interview Scribe Disclosure: INayla, am serving as a scribe to document services personally performed by Mazin Guerrero MD at this visit, based upon the provider's statements to me. All documentation has been reviewed by theaforementioned provider prior to being entered into the official medical record. Entered on 12/03/2015 at 7:34 AM. IMazin MD, attest that the above named individual is acting in scribe capacity, has observed my performance of the services performed at this visit and has documented them in accordance with my direction. Entered on 12/03/2015 at 7:34 AM. Mazin Guerrero MD E BANDER documented in this encounter Plan of Treatment Not on filedocumented as of this encounter Visit Diagnoses Diagnosis Osteoarthritis of lower extremity - Prim shon Osteoarthrosis, unspecified whether gene ralized or localized, lower leg Left knee pain Pain in joint, lower leg documented in this encounter Care Teams Hammer Fitter Relationship Specialty Start Date End Date Lucero Fraire MD PCP - General 12/03/15 [address] [address] documented as of this encounter
--- OUTSIDE RECORDS SUMMARY | 2022-10-06 11:36 | XMS_ITS | Encounter Summary ---
:1960 [facility] Address [address] [address] Care Team Providers Name Role Phone Lucero Fraire MD Primary Care Provider Reason for Visit Reason Comments Provider Orders Encounter Details Date Type Department Care Team Description 07/09/2016 Telephone [facility] Kameron Gann MD Provider Orders [address] [facility] [place], [place] [address] [place] [address] [phone] (Wo rk) Social History Tobacco Use Types Packs/Day Years Used Date Smoking Tobacco: Never Assessed Sex Assigned at Date Recorded Not on file documented as of this encounter Plan of Treatment Not on filedocumented as of this encounter Visit Diagnoses Diagnosis Chronic pain of left knee - Primary Pain in joint, lower leg documented in this encounter Care Teams Project Management Specialist Relationship Specialty Start Date End Date Lucero Fraire MD PCP - General 12/03/15 [address] [place] [address] documented as of this encounter
--- OUTSIDE RECORDS SUMMARY | 2022-10-06 11:36 | XMS_ITS | Encounter Summary ---
:1960 Author Organization [facility] Address [address] [place] [address] Care Team Providers Name Role Phone Unassigned, Provider Primary Care Provider Unavailable Encounter Details Date Type Department Care Team Description 09/12/2015 Imaging [id number] RADIOLOGY [facility] FILM LIBRARY [address] [facility] [place] [address] Social History Tobacco Use Types Packs/Day Years Used Date Smoking Tobacco: Never Assessed Sex Assigned at Date Recorded Not on file documented as of this encounter Plan of Treatment Not on filedocumented as of this encounter Procedures Procedure Name Priority Date/Time Associated Diagnosis Comme nts FOREIGN IMAGE(S) MR Routine 09/12/2015 12:00 AM R esults for this EXTREMITY LT CDT procedure are i n the results section. documented in this encounter Results Foreign Image(S) MR Extremity Lt (09/12/2015 12:00 AM CDT) Anatomical Region Laterality Modality Other Specimen (Source) Anatomical Location Collection Method / Collectio n Time Received Time / Laterality Volume Narrative 12/03/2015 9:30 AM NET DEVELOPER PROGRAMMER These outside images have been uploaded into PACS. If the results were provided, they will be located on the Media tab in the patient's chart. Procedure Note Conversion, Imr - 10/07/2016Formatting o f this note might be different from the original. These outside images have been uploaded into PACS. If the results were provided, they will be located on the Media tab in the patient's chart. Mazin Guerrero MD RAD NON-REPORTABLES documented in this encounter Visit Diagnoses Not on filedocumented in this encounter Care Teams Fire Suppression Captain Relationship Specialty Start Date End Date Unassigned, Provider PCP - General 10/27/00 12/02/15 [address] [place] [address] documented as of this encounter
--- OUTSIDE RECORDS SUMMARY | 2022-10-06 11:36 | XMS_ITS | Encounter Summary ---
:1960 Author Organization [employer] Address [address] [address] Care Team Providers Name Role Phone Lucero Fraire MD Primary Care Provider Encounter Details Date Type Department Care Team Description 08/05/2016 Notes/Orders [facility] Kameron Gann MD [address] [facility] [address] [place] [address] [place] [address] [place] [address] [phone] (Wo rk) Social History Tobacco Use Types Packs/Day Years Used Date Smoking Tobacco: Former Comments: Quit smoking: Alcohol Use Standard Drinks/Week Comments No 0 (1 standard drink = 0.6 oz pure alcoho l) Sex Assigned at Date Recorded Not on file documented as of this encounter Progress Notes Hillary Erickson - 08/05/2016 9:23 AM CDT Addended by: HILLARY ERICKSON on: 08/13/2019 03:16 PM Modules accepted: Orders documented in this encounter Plan of Treatment Not on filedocumented as of this encounter Visit Diagnoses Not on filedocumented in this encounter Care Teams Dip Painter Relationship Specialty Start Date End Date Lucero Fraire MD PCP - General 12/03/[address] [place] [address] documented as of this encounter
--- OUTSIDE RECORDS SUMMARY | 2022-10-06 11:36 | XMS_ITS | Encounter Summary ---
:1960 Author [facility] Address [address], [place] [address] Care Team Providers Name Role Phone Lucero Fraire MD Primary Care Provider Reason for Visit Reason Comments Knee Pain or Injury Encounter Details Date Type Department Care Team Description 07/05/2016 Office Visit [facility] Kameron Morales M D [facility] [address] [place] [address] Dr osteoarthritis of left [address] [place], [place] [address] [phone] Social History Tobacco Use Types Packs/Day Years Used Date Smoking Tobacco: Never Assessed Sex Assigned at Date Recorded Not on file documented as of this encounter Progress Notes Kameron Morales MD - 07/05/2016 2:59 PM CDT Progress Notes signed by Kameron Morales MD at 08/23/161720 Author: Kameron Morales MD Service: (none) Author Type: Physician Filed: 08/23/161720 Note Time: 07/06/16801 Status: Signed Derrick Operator: Kameron Morales MD (Physician) NAME: SHASHANK HASTINGS MR#: [id number] CSN: [id number] AUTHENTICATING CLINICIAN: Kameron Morales MD CONFIRM #: [id number] LOC: 711 CLINIC PROGRESS NOTE DATE OF VISIT: 07/05/2016 : 1960 Carlo is seen in follow up in regards to left knee pain. He has known osteoarthritis of the left proximal tibiofibular joint. He notes left lateral leg pain descending into the left foot region and also low back pain associated with gait disturbance. He reports the injection was performed on 06/21 by our radiologist, resulted in almost complete resolution of the pain in his knee for about one day. He states that his pain level prior to the injection was an 8 and that after the injection it was a level3-4. He notes a snapping pain with pressure and uses a cane. PHYSICAL EXAM: He walks with antalgia with the use of a cane. He is able to walk without the cane with a severely antalgic gait. He has no significant clinical deformity. There is tenderness and pain on palpation of the fibular head against the proximal tib-fib joint. There is no pain over the peroneal nerve. His neurologic status is intact. His motor exam and sensory exam is intact. IMAGING: AP lateral x-ray and MRI scan show degenerative change in the proximal tib-fib joint laterally. ASSESSMENT: Degenerative arthrosis proximal tibiofibular joint. TREATMENT: I have described to him in detail a fusion of the joint with screw fixation. He understands this. Heunderstands the risks of potential neurologic injury and/or failure of healing, persistent pain and hardware difficulties. He wishes to proceed. He will continue on a sedentary work status. ADDENDUM: [facility] Shashank Hastings. The [facility] was present and informed of the diagnosis and sedentary work status and non-work for 2 months postoperative. MTD:JONATHON C: R:07/05/16 15:06 CONFIRM#:[id number] documented in this encounter Plan of Treatment Not on filedocumented as of this encounter Visit Diagnoses Diagnosis Post-traumatic osteoarthritis of left kn ee Secondary localized osteoarthrosis, lowe r leg documented in this encounter Care Teams Government Gauger Relationship Specialty Start Date End Date Lucero Fraire MD PCP - General 12/03/15 [address] [place] [address] documented as of this encounter
--- OUTSIDE RECORDS SUMMARY | 2022-10-06 11:36 | XMS_ITS | Encounter Summary ---
:1960 Author Organization [facility] Address [address] [place] [address] Care Team Providers Name Role Phone Lucero Fraire MD Primary Care Provider Reason for Visit Reason Onset Date Comments Refill 10/04/2016 oxycodone Encounter Details Date Type Department Care Team Description 10/04/2016 Refill [facility] Kameron Gann MD Refill (oxycodone) [address] [facility] [address] [facility] [address] [place] [address] [place] [address] [phone] (Wo rk) Social History Tobacco Use Types Packs/Day Years Used Date Smoking Tobacco: Former Comments: Quit smoking: Alcohol Use Standard Drinks/Week Comments No 0 (1 standard drink = 0.6 oz pure alcoho l) Sex Assigned at Date Recorded Not on file documented as of this encounter Nursing Notes Sade Draper RN - 10/04/2016 10:48 AM CST Pt informed of refill and will send , Ghada to bulk picker from [facility]. O VISUAL EQUIPMENT RENTAL CLERK Sade Draper RN - 10/04/2016 10:16 AM CST Pt of Dr. Morales's s/p left proxmial tibia/fibula fusion w/internal fixation on 09/27/[address] Morales. Pt requesting med refill for oxycodone 5mg. Last refill 09/27, #40, (0) refills. Pt c/o left leg pain, 6-06/30. Pt reports taking six tablets daily. Please approve or advise. O VISUAL EQUIPMENT RENTAL CLERK documented in this encounter Plan of Treatment Not on filedocumented as of this encounter Visit Diagnoses Not on filedocumented in this encounter Care Teams Manager Field Service Relationship Specialty Start Date End Date Lucero Fraire MD PCP - General 12/03/15 [address], [place] [address] documented as of this encounter
--- OUTSIDE RECORDS SUMMARY | 2022-10-06 11:36 | XMS_ITS | Encounter Summary ---
:1960 Author Organization [facility] Address [address], [place] [address] Care Team Providers Name Role Phone Lucero Fraire MD Primary Care Provider Encounter Details Date Type Department Care Team Description 07/08/2016 Orders Only [facility] Kameron Morales M D [facility] [address] [place] [address] Dr osteoarthritis of left [address] [place], [place] knee [place], [place] [address] [phone] Social History Tobacco Use Types Packs/Day Years Used Date Smoking Tobacco: Never Assessed Sex Assigned at Date Recorded Not on file documented as of this encounter Plan of Treatment Not on filedocumented as of this encounter Visit Diagnoses Diagnosis Post-traumatic osteoarthritis of left kn ee Secondary localized osteoarthrosis, lowe r leg documented in this encounter Care Teams High Lead Yarder Relationship Specialty Start Date End Date Lucero Fraire MD PCP - General 12/03/15 [address] [place] [address] documented as of this encounter
--- OUTSIDE RECORDS SUMMARY | 2022-10-06 11:36 | XMS_ITS | Encounter Summary ---
:1960 Author Organization [email or web address] Address [address] [place] [address] Care Team Providers Name Role Phone Lucero Fraire MD Primary Care Provider Encounter Details Date Type Department Care Team Description 09/27/2016 Anesthesia Event [facility] Omega Ortiz, [address] [facility] Carissa mejia MD [place], [place] [address] [phone] Ashok [address] [address] [place], [place] [address] (Wo rk) Anesthesia Record Procedure Summary Procedure Name Responsible Anesthesia Start Anesthesia Stop Time Anesthesiologist Time Left proximal Omega Ortiz MD 09/27/16 0733 09/27/16 09 08 tibia/fibula joint fusion with internal fixation (Left: Leg) Events Date Time Event Comment 09/27/2016 0710 IV plmt Saturnino Yeboah APRN, METER READER INSPECTOR 0716 IV Plmt Comp IV was placed in Preop area by Saturnino Yeboah APRN, METER READER INSPECTOR for a dministration of IV fluids, IV antibiotics, and IV pre-op sedation. Patient was continuously mon itored by Saturnino Yeboah APRN, SHERRY during the placement. 0717 0733 An Start 0737 An Start Data 0742 An Induction 0743 An LMA 0802 An Tourn Inflated 300 torr. 0854 An Emergence 0858 An Tourn Deflated 0859 An LMA Removed Spontaneous resp irations with adequate air exchange. LMA re moved without complications. Transported with oxygen to recovery. 0859 An Oxygen Mask Spontaneous res pirations with adequate air exchange. 0901 an stop data 0908 An Stop Care transferred . 0908 Care Handoff Note I discussed wi th [...] understanding of report Electr onically signed by Saturnino Yeboah APRN, CRNA Name Total midazolam 2 mg/2 mL injection (aka VERSED) 2 mg FENTanyl injection (aka SUBLIMAZE) 2 mL lidocaine 2% PF injection aka (XYLOCAINE) 100 mg propofol 10 mg/mL for procedural sedation (aka diPRIva n) 200 mg propofol 10 mg/mL (aka diPRIvan) 536.61 mg ondansetron injection (aka ZOFRAN) 4 mg dexamethasone 4 mg/mL injection (aka DECADRON) 4 mg ePHEDrine 50 mg prediluted syringe 30 mg HYDROmorphone injectable 0.2-0.4 mg 1 mg ceFAZolin (aka ANCEF) 2 g in dextrose 100 ml IVPB 2 g lactated ringers infusion 1,625 mL Agents Name O2 N2O Blood No blood administrations on file. Lines, Drains, and Airways Type Details Placement Removal Peripheral IV Placement Date: 09/27/16715 by 09/27/16 1050 b y 09/27/16; Placement Saturnino Yeboah Erickson, D annica B, Time: 715; SHERRY CHIN RN Pre-existing: No; Inserted by?: SHERRY; Size (Gauge): 18 G; Orientation: Left; Site Prep: Alcohol; Local Anesthetic: Injectable; Insertion attempts: 1; Blood draw with insertion?: no; Patient Tolerance: Tolerated well; Met Standard Sterile Barrier Technique: Met Standard Sterile Barrier Technique; Removal Date: 09/27/16; Removal Time: 1050; Removal Reason: Per Protocol; Catheter Tip: Intact LMA Placement Date: 09/27/16742 by 09/27/16 0859 b y 09/27/16; Placement Saturnino Yeboah, Velma Yeboah, RECORDING ARTIST, Time: 742; Placed By: RECORDING ARTIST, METER READER INSPECTOR METER READER INSPECTOR METER READER INSPECTOR; Induction Type: Pre-O2, IV, Inhalation; Size (mm): 5; Difficulty: Atraumatic; Removal Date: 09/27/16; Removal Time: 0859; Transferred with Oxygen: Yes Incision/Surgical 09/27/16; 0803; Leg; 09/27/16 0803 by 10/11/16 1124 by [facility], Site Left; 10/11/16; 1124 Silvana Wood RN Discon tinue documented in this encounter Social History Tobacco Use Types Packs/Day Years Used Date Smoking Tobacco: Former Comments: Quit smoking: Alcohol Use Standard Drinks/Week Comments No 0 (1 standard drink = 0.6 oz pure alcoho l) Sex Assigned at Date Recorded Not on file documented as of this encounter Miscellaneous Notes Anesthesia Postprocedure Evaluation - Omega Ortiz MD - 09/27/2016 10:35 AM CST [facility] Post-op Note Patient: Shashank Paredes Darling Post-Op Diagnosis: Tibial pain Procedure Performed: Procedure(s): Left proximal tibia/fibula joint fusion with internal fixation Anesthesia Type: General Post-op vital signs: BP 125/72 mmHg Pulse 80 Temp(Src) 97.3 ??F (36.3 ??C) (Tympanic) Resp 16 Ht 5' 8 Wt 92.987 kg (205 lb) BMI 31.18 kg/m2 SpO2 92% Pain Score: Presence Of Pain: complains of pain/discomfort Preferred Pain Scale: number (Numeric Rating Pain Scale) Pain Rating (0-10): Rest: 4 Post-op assessment: No anesthesia complication. Patient location: PACU Airway Status: Patent Cardiovascular function: Satisfactory Hydration status: Satisfactory PONV: None Level of Consciousness: Awake Fully Participates Postop Assessment: Patient tolerated procedure well. Electronically signed by: Omega Ortiz MD 09/27/2016 10:35 AM WEIGHER Anesthesia Postprocedure Evaluation - Omega Ortiz MD - 09/27/2016 10:27 AM CST [facility] Post-op Note Patient: Shashank Hastings Post-Op Diagnosis: Tibial pain Procedure Performed: Procedure(s): Left proximal tibia/fibula joint fusion with internal fixation Anesthesia Type: General Post-op vital signs: BP 125/72 mmHg Pulse 80 Temp(Src) 97.3 ??F (36.3 ??C) (Tympanic) Resp 16 Ht 5' 8 Wt 92.987 kg (205 lb) BMI 31.18 kg/m2 SpO2 92% Pain Score: Presence Of Pain: complains of pain/discomfort Preferred Pain Scale: number (Numeric Rating Pain Scale) Pain Rating (0-10): Rest: 4 Post-op assessment: No anesthesia complication. Patient location: Phase 2 Airway Status: Patent Cardiovascular function: Satisfactory Hydration status: Satisfactory PONV: None Level of Consciousness: Awake Fully Participates Postop Assessment: Patient tolerated procedure well. Prophylactic antiemetic agents not given for medical reasons 2 antiemetic given intraop, EPIC error Electronically signed by: Omega Ortiz MD 09/27/2016 10:27 AM WEIGHER Anesthesia Preprocedure Evaluation - Omega Ortiz MD - 09/27/2016 7:01 AM CST [facility] Pre-op Evaluation Procedure: Procedure(s): Left proximal tibia/fibula fusion with internal fixation HPI: 56 y.o. old male with Tibial pain NPO Status: No Known Allergies Past Medical History Diagnosis Date ??? Unspecified cerebral artery occlusion with cerebral infarction 2007 Had injection intravascular with some bleeding complication. He has some residual left sided paresis and weakness Patient Active Problem List Diagnosis ??? Tobacco use disorder (HRC) ??? Lumbago (HRC) History reviewed. No pertinent past surgical history. Outpatient Prescriptions Marked as Taking for the 09/27/16 encounter (Hospital Encounter) Medication Sig Dispense Refill ??? pantoprazole (PROTONIX) 40 MG tablet Take 40 mg by mouth daily. Current Facility-Administered Medications Medication Dose Route Frequency ??? bupivacaine-EPINEPHrine PF (SENSORCAINE) 0.25% -1:[id number] injection Intra-Op ??? ceFAZolin (ANCEF) 1 g in sodium chloride for irrigation 1,000 mL irrgation Intra-Op ??? fentaNYL (SUBLIMAZE) injection 25-50 mcg 25-50 mcg Intravenous Q5MIN PRN ??? HYDROmorphone injectable 0.2-0.4 mg 0.2-0.4 mg Intravenous Q10MIN PRN ??? meperidine (DEMEROL) injection 12.5 mg 12.5 mg Intravenous Q5MIN PRN ??? MORphine injectable 1-3 mg 1-3 mg Intravenous Q5MIN [...] this or any previous visit. Physical Exam: Ht 5' 8 Wt 92.987 kg (205 lb) BMI 31.18 kg/m2 Assessment/Plan: Review of Systems Patient has GERD. GERD controlled with medication. Patient is not a smoker. The patient denies alcohol use. Patient denies any recent URI. History of PONV: No. History of motion sickness: No. Patient denies any personal or family history of anesthesia complications. Exam Mental Status: Alert and oriented. Mallampati score: I (One). Dentition: Normal.Cardiac Exam: Regular rate and rhythm. Respiratory Exam: Breath sounds clear to auscultation Assessment ASA Status: 3 . Plan Anesthesia type: LMA Induction: Propofol Maintenance: TIVA PONV Prophylaxis: Ondansetron and Decadron Postoperative pain management: Plan for postoperative opioid use Anesthetic plan, risks, benefits and alternatives discussed with: Patient H&P Reviewed and Patient examined, no change observed IV access Antibiotics per surgery Electronically signed by: Omega Ortiz MD 09/27/2016 7:01 AM WEIGHER documented in this encounter Plan of Treatment Not on filedocumented as of this encounter Visit Diagnoses Not on filedocumented in this encounter Administered Medications Inactive Administered Medications - up to 3 most recent administrations Medication Order MAR Action Action Date Dose Rate Site ceFAZolin (aka ANCEF) 2 g in Given 09/27/2016 7:33 AM BEAN WEIGHER 2 g dextrose 100 ml IVPB 2 g, Intravenous, Administer over 30 Minutes, ONCE, On Tue09/27/16 at 0730, For 1 dose, Infuse within 60 minutes prior to incision; Re-dose 1 gram IV every 4 hours after initial dose until incision closed., Pre-op dexamethasone (aka DECADRON) injection Given 09/27/2016 7:44 AM BEAN WEIGHER 4 mg Starting on Tue09/27/16 at 0744 ePHEDrine 5mg/ml in 0.9% sodium chloride Given 09/27/2016 8:01 A M BEAN WEIGHER 10 mg syringe Intravenous, Starting on Tue09/27/16 at 0748, Until Tue09/27/16 at 0908 Given 09/27/2016 7:55 AM BEAN WEIGHER 10 mg Given 09/27/2016 7:48 AM BEAN WEIGHER 10 mg fentaNYL (aka SUBLIMAZE) injection Given 09/27/2016 7:41 AM BEAN WEIGHER 1 mL Starting on Tue09/27/16 at 0733 Given 09/27/2016 7:33 AM BEAN WEIGHER 1 mL HYDROmorphone injectable 0.2-0.4 mg Given 09/27/2016 8:04 AM BEAN WEIGHER 0.5 mg 0.2-0.4 mg, Intravenous, Q10MIN PRN, Other, Moderate to Severe Pain (pain score 5 and above), Starting on Tue09/27/16 at 0653, Until Tue09/27/16 at 1323, Maximum cumulative dose is 2 mg. For patients with a regional, spinal, or local anesthetic, may give for anticipated pain as the anesthetic wears off., PACU/Recovery Given 09/27/2016 7:52 AM BEAN WEIGHER 0.5 mg lactated ringers infusion Started 09/27/2016 8:01 AM BEAN WEIGHER Intravenous, at 30 mL/hr, CONTINUOUS, Starting on Tue09/27/16 at 0730, Pre-op Started 09/27/2016 7:16 AM BEAN WEIGHER lidocaine 2% PF (XYLOCAINE) injection Given 09/27/2016 7:42 AM BEAN WEIGHER 100 mg Starting on Tue09/27/16 at 0742, Until Tue09/27/16 at 0908 midazolam (aka VERSED) injection Given 09/27/2016 7:33 AM BEAN WEIGHER 2 mg Starting on Tue09/27/16 at 0733 ondansetron (ZOFRAN) injection Given 09/27/2016 8:40 AM BEAN WEIGHER 4 mg Starting on Tue09/27/16 at 0840, Until Tue09/27/16 at 0908 propofol (aka diPRIvan) injection Given 09/27/2016 7:42 AM BEAN WEIGHER 200 mg Starting on Tue09/27/16 at 0742 propofol (aka diPRIvan) Rate/Dose Change 09/27/2016 8:40 60 mcg/kg/ min 33.48 mL/hr injection AM BEAN WEIGHER Starting on Tue09/27/16 at 0742 Rate/Dose Change 09/27/2016 8:18 AM BEAN WEIGHER 75 mcg/kg/min 41.85 mL/hr Rate/Dose Change 09/27/2016 8:01 AM BEAN WEIGHER 80 mcg/kg/min 44.64 mL/hr documented in this encounter Care Teams Beverage Inspection Machine Tender Relationship Specialty Start Date End Date Lucero Fraire MD PCP - General 12/03/15 [address] [place] [address] documented as of this encounter
--- OUTSIDE RECORDS SUMMARY | 2022-10-06 11:36 | XMS_ITS | Encounter Summary ---
:1960 Author Organization [employer] Address [address], [place] [address] Care Team Providers Name Role Phone Lucero Fraire MD Primary Care Provider Reason for Referral Procedure/Equipment (Routine) - Incomplete Specialty Diagnoses / Procedures Referred By Contact Refer red To Contact Diagnoses Surgery follow-up Kameron Morales MD Procedures XR Knee Lt [address] [place] [address] [place], [place] [address] Referral ID Status Reason Start Date Expiration Date Visits V isits Requested Authorized [id number] Incomplete 10/25/2016 01/24/2018 1 1 ER LINER Reason for Visit Reason Comments LEG PAIN Left Encounter Details Date Type Department Care Team Description 10/25/2016 Office Visit [facility] Kameron Morales M D Surgery follow-up (Primary Dx); CENTER [address] [place] [address] Left knee pain, unspecified chronicity [address] [place], [place] [id number] [phone] (Wo rk) Social History Tobacco Use Types Packs/Day Years Used Date Smoking Tobacco: Former Comments: Quit smoking: Alcohol Use Standard Drinks/Week Comments No 0 (1 standard drink = 0.6 oz pure alcoho l) Sex Assigned at Date Recorded Not on file documented as of this encounter Patient Instructions Patient InstructionsSorFaustina hdez - 10/25/2016 2:[address] Kameron Morales MD Orthopaedic Surgeon, Board Certified Neurosurgical Physician Assistant: Faustina Oquendo Please contact Jane for all surgery scheduling and administrative questions at [phone] Please contact Nurse Triage for all medical related questions at [phone] Medication Requests: Prescriptions are not filled on Weekends or on Weekdays after 3:00PM For all medication refills: Request a refill using MyChart or contact your Pharmacy Shantell Garcia RN CHORAL TEACHER Nurse Practitioner Neurosurgical Physician Assistant: Faustina Oquendo Please contact Jane for all surgery scheduling and administrative questions at [phone] Please contact Nurse Triage for all medical related questions at [phone] Medication Requests: Prescriptions are not filled on Weekends or on Weekdays after 3:00PM For all medication refills: Request a refill using MyChart or contact your Pharmacy ER LINER documented in this encounter Progress Notes Shantell Garcia, SEQUINS WINDER, CHORAL TEACHER - 10/27/2016 10:24 AM CST NAME: SHASHANK HASTINGS MR#: [id number] CSN: [id number] AUTHENTICATING CLINICIAN: Kameron Morales MD CONFIRM #: [id number] LOC: 711 CLINIC PROGRESS NOTE DATE OF VISIT: 10/25/2016 : 1960 Carlo is seen 4 weeks post of of his left proximal tib-fib fusion with internal fixation. He reports that he is still having lot of pain and has some numbness to his pinky toe on that side. He is walkingwith a cane with a fairly exaggerated limp gait pattern. PHYSICAL EXAM: He has no swelling about his knee. Incisions are healed, benign and intact. He has hypersensitivity laterally over the wound itself. Range of motion is near full of 0-100 degrees. Still has pain to palpate the calf with no new neurocirculatory changes or deficits. IMAGING: X-rays were independently reviewed. Two view x-rays were taken which show excellent healing and fixation of the fusion site. DIAGNOSIS: Left proximal tib-fib fusion with internal fixation. PLAN: At this time the natural progression and plan of care was discussed. He will finish his course of oxycodone and will taper him down to Vicodin to which at that time when that is gone he will get tramadol for pain. He will continue to work on gentle range of motion, icing and advance his activities as he feels comfortable. He will follow up in one month. Will obtain an internal rotation AP x-ray of his left knee on arrival. Shantell Castellon RN, CHORAL TEACHER, am serving as a scribe on 10/25/2016 to personally document services performed and statements dictated by Dr. Kameron Morales. I, Dr. Kameron Morales, was present during the services described in this documentation. I have reviewed the document for accuracy. Dictated by: Shantell Garcia RN, CHORAL TEACHER MTD:IRENE C: R:10/25/16 14:47 CONFIRM#:[id number] ER LINER documented in this encounter Plan of Treatment Not on filedocumented as of this encounter Results XR Knee Lt 2 Views (10/25/2016 1:44 PM DRAWER LINER) Anatomical Region Laterality Modality Lower Extremity, Knee Digital Radiograph y Specimen (Source) Anatomical Location Collection Method / Collectio n Time Received Time / Laterality Volume Narrative 11/08/2016 7:11 AM DRAWER LINER Two view x-rays were taken which show excellent healing and fixation of the fusion site. Kameron Morales MD RAD GD documented in this encounter Visit Diagnoses Diagnosis Surgery follow-up - Primary Follow-up examination, following unspeci fied surgery Left knee pain, unspecified chronicity Surgery follow-up Follow-up examination, following unspeci fied surgery documented in this encounter Care Teams Complaint Investigator Relationship Specialty Start Date End Date Lucero Fraire MD PCP - General 12/03/15 [address] [place] [address] documented as of this encounter
--- OUTSIDE RECORDS SUMMARY | 2022-10-06 11:36 | XMS_ITS | Encounter Summary ---
:1960 Author Organization [employer] Address [address], [place] [address] Care Team Providers Name Role Phone Lucero Fraire MD Primary Care Provider Reason for Visit Procedure/Equipment (Routine) - Incomplete Specialty Diagnoses / Procedures Referred By Contact Refer red To Contact Diagnoses Surgery follow-up Shantell Garcia APRN, PHLEBOTOMIST MEDICAL LAB ASSISTANT Procedures XR Tibia Fibula Lt [address] [place] [address] [place], [place] [address] Referral ID Status Reason Start Date Expiration Date Visits V isits Requested Authorized [id number] Incomplete 10/11/2016 01/10/2018 1 1 Encounter Details Date Type Department Care Team Description 10/11/2016 Imaging [facility] Shantell Garcia APRN, Surgery follow-up [address] [place], [place] [address] [address] [facility] [phone] [place] [address] (Wo rk) Social History Tobacco Use Types [...] Comme nts XR TIBIA FIBULA LT Routine 10/11/2016 10:25 AM Surgery follow- up Results for this 2 VIEWS PHARMACOMETRICIAN procedure are i n the results section. documented in this encounter Results XR Tibia Fibula Lt 2 Views (10/11/2016 10:25 AM PHARMACOMETRICIAN) Anatomical Region Laterality Modality Lower Extremity, Knee, Leg, Foot & Ankle Digital Radiography Specimen (Source) Anatomical Location Collection Method / Collectio n Time Received Time / Laterality Volume Narrative 11/08/2016 7:12 AM PHARMACOMETRICIAN Ap and lateral xrays of the knee show good position of internal fixation screws. Shantell Garcia FINANCE LECTURER, PHLEBOTOMIST MEDICAL LAB ASSISTANT RAD GD documented in this encounter Visit Diagnoses Diagnosis Surgery follow-up Follow-up examination, following unspeci fied surgery documented in this encounter Care Teams Heater Helper Forge Relationship Specialty Start Date End Date Lucero Fraire MD PCP - General 12/03/[address] [place] [address] documented as of this encounter
--- OUTSIDE RECORDS SUMMARY | 2022-10-06 11:37 | XMS_ITS | Encounter Summary ---
:1960 Author Organization [facility] Address [address], [place] [address] Care Team Providers Name Role Phone Unassigned, Provider Primary Care Provider Unavailable Encounter Details Date Type Department Care Team Description 11/26/2007 PN Conversion Only LAKIN CONVERSIO [address] [address] [place] [address] Social History Tobacco Use Types Packs/Day Years Used Date Smoking Tobacco: Never Assessed Sex Assigned at Date Recorded Not on file documented as of this encounter Plan of Treatment Not on filedocumented as of this encounter Visit Diagnoses Not on filedocumented in this encounter Care Teams Rn Access Relationship Specialty Start Date End Date Unassigned, Provider PCP - General 10/27/00 12/02/[address] [place] [address] documented as of this encounter
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
--- OUTSIDE RECORDS SUMMARY | 2022-10-06 11:37 | XMS_ITS | Encounter Summary ---
:1960 Author Organization [employer] Address [address] [address] Care Team Providers Name Role Phone Unassigned, Provider Primary Care Provider Unavailable Encounter Details Date Type Department Care Team Description 11/26/2007 Office Visit [facility] [address] [place] [address] Social History Tobacco Use Types Packs/Day Years Used Date Smoking Tobacco: Never Assessed Sex Assigned at Date Recorded Not on file documented as of this encounter Last Filed Vital Signs Vital Sign Reading Time Taken Comments Blood Pressure 136/78 11/26/2007 11:09 AM CONDUCTOR/ENGINEER Pulse 96 11/26/2007 11:09 AM CONDUCTOR/ENGINEER Temperature 36.6 ??C (97.9 ??F) 11/26/2007 11:09 AM CONDUCTOR/ENGINEER C: 3 6.6 C Respiratory Rate 16 11/26/2007 11:09 AM CONDUCTOR/ENGINEER Oxygen Saturation - - Inhaled Oxygen Concentration - - Weight - - Height - - Body Mass Index - - documented in this encounter Progress Notes Thea Merritt MD - 11/26/2007 12:01 AM CST Progress Notes signed by Thea Merritt MD at 12/24/07 0816 Author: Thea Merritt MD Service: (none) Author Type: Physician Filed: 03/13/11 0005 Note Time: 11/26/07 0001 Status: Signed Television Station Manager: Thea Merritt MD (Physician) NAME: SHASHANK HASTINGS MR#: [id number] ACCT: [id number] VISIT: [id number] DICTATING CLINICIAN: THEA MERRITT MD JOB: [id number] LOC: 520 CLINIC PROGRESS NOTE DATE OF VISIT: 11/26/2007 SUBJECTIVE: This 47-year-old male comes in with concerns for having nasal congestion for the past 2 days. He feels some facial pressure and sinus pressure. Has had some headaches. His temperature was 99.9 today. Has not had any sore throat and cough has been very minimal. No diarrhea or vomiting. Has had some body aches and some chills also. He is planning to go ice [employer] in 4 days and wants to get better. He used to be a smoker, but quit about 3 years ago. PAST MEDICAL HISTORY: Splenectomy. MEDICATIONS: Reviewed in LastWord. ADR/ALLERGIES: NONE. OBJECTIVE: VS: BP: 136/78. T: Afebrile. P: 96. R: 16. Oxygen saturation 98% on room air. Exam shows patient looking great. He appears uncomfortable. His nose is obviously congested. Throat shows minimal erythema and he has tonsillectomy. Ears look normal. NECK: Supple, no lymph node palpable. LUNGS: Clear. CARDIOVASCULAR: Regular rhythm and rate, normal S1, S2. ASSESSMENT: URI. PLAN: Symptomatic treatment advised. Recheck if fevers or if he feels sicker in any way. FK:[id number] C: 11/27/07 13:59 DOCUMENT: [id number] UCTOR/ENGINEER documented in this encounter Plan of Treatment Not on filedocumented as of this encounter Visit Diagnoses Not on filedocumented in this encounter Care Teams Supervisor Tellers Relationship Specialty Start Date End Date Unassigned, Provider PCP - General 10/27/00 12/02/[address] [place] [address] documented as of this encounter
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
--- OUTSIDE RECORDS SUMMARY | 2022-10-06 11:37 | XMS_ITS | Encounter Summary ---
:1960 Author Organization [facility] Address [address] [address] Care Team Providers Name Role Phone Unassigned, Provider Primary Care Provider Unavailable Encounter Details Date Type Department Care Team Description 03/22/2011 PN Conversion Only CONVERSION CONVERSION Social History Tobacco Use Types Packs/Day Years Used Date Smoking Tobacco: Never Assessed Sex Assigned at Date Recorded Not on file documented as of this encounter Plan of Treatment Not on filedocumented as of this encounter Visit Diagnoses Not on filedocumented in this encounter Care Teams Ophthalmic Medical Technologist Relationship Specialty Start Date End Date Unassigned, Provider PCP - General 10/27/00 12/02/[address] [place] [address] documented as of this encounter
--- OUTSIDE RECORDS SUMMARY | 2022-10-06 11:37 | XMS_ITS | Encounter Summary ---
:1960 Author Organization [facility] Address [address] [address] Care Team Providers Name Role Phone Unassigned, Provider Primary Care Provider Unavailable Encounter Details Date Type Department Care Team Description 11/26/2007 PN Conversion Only [facility] [address] [address] [place] [address] Social History Tobacco Use Types Packs/Day Years Used Date Smoking Tobacco: Never Assessed Sex Assigned at Date Recorded Not on file documented as of this encounter Plan of Treatment Not on filedocumented as of this encounter Visit Diagnoses Not on filedocumented in this encounter Care Teams Lens Finisher Relationship Specialty Start Date End Date Unassigned, Provider PCP - General 10/27/00 12/02/[address] [place] [address] documented as of this encounter
--- OUTSIDE RECORDS SUMMARY | 2022-10-06 11:37 | XMS_ITS | Encounter Summary ---
:1960 Author Organization [facility] Address [address] [place] [address] Care Team Providers Name Role Phone Unassigned, Provider Primary Care Provider Unavailable Encounter Details Date Type Department Care Team Description 10/11/2008 PN Conversion Only [place] Blaine Connell, [address] [facility] [place] [address] [address] [place], [place] [id number] Social History Tobacco Use Types Packs/Day Years Used Date Smoking Tobacco: Never Assessed Sex Assigned at Date Recorded Not on file documented as of this encounter Plan of Treatment Not on filedocumented as of this encounter Procedures Procedure Name Priority Date/Time Associated Diagnosis Comme nts STREP GROUP A Routine 10/11/2008 6:44 PM Results for this ANTIGEN TEST DUMP GRADER procedure are i n the results section. BETA STREP FOLLOWUP Routine 10/11/2008 6:44 PM Re sults for this DUMP GRADER procedure are i n the results section. documented in this encounter Results Strep Group A Antigen Test (10/11/2008 6:44 PM DUMP GRADER) Analysis Performed At Patho logist Time Signature Strep Group A Negative Negative HP CONVERSION Antigen Test Comment: Culture to follow. Specimen (Source) Anatomical Collection Method Collection Time Re ceived Time Location / / Volume Laterality 10/11/2008 6:44 PM DUMP GRADER Blaine Medina MD LAB_1 Performing Organization Address City/State/ZIP Code Phon e Number HP CONVERSION Beta Strep Followup (10/11/2008 6:44 PM DUMP GRADER) P athologist Signature Strep Screen SEE TEXT HP CONVERSION Comment: Patient: SHASHANK HASTINGS Rapid Strep Follow up Culture ? Collected: ??[id number] ??[id number] Source: Throat ?Processed: ??[id number] ??[id number] ? 1V Final Report ------ ?[id number] ??[id number] No beta hemolytic Strep group A isolated . Specimen (Source) Anatomical Collection Method Collection Time Re ceived Time Location / / Volume Laterality 10/11/2008 6:44 PM DUMP GRADER Blaine Medina MD LAB_1 Performing Organization Address City/State/ZIP Code Phon e Number HP CONVERSION documented in this encounter Visit Diagnoses Not on filedocumented in this encounter Care Teams Client Technologies Analyst Relationship Specialty Start Date End Date Unassigned, Provider PCP - General 10/27/00 12/02/15 [address] [place] [address] documented as of this encounter
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
--- OUTSIDE RECORDS SUMMARY | 2022-10-06 11:39 | XMS_ITS | Encounter Summary ---
:1960 Author Organization [facility] Address [facility] [place] [address] Care Team Providers Name Role Phone Kameron German MD Primary Care Provider Encounter Details Date Type Department Care Team Description 01/11/2008 Historic Elementary Classroom Teacher INTERFACED REPORT Interface, MD Sonali Social History Tobacco Use Types Packs/Day Years Used Date Smoking Tobacco: Never Assessed Sex Assigned at Date Recorded Not on file documented as of this encounter Plan of Treatment Not on filedocumented as of this encounter Visit Diagnoses Not on filedocumented in this encounter Care Teams Commercial Parts Professional Relationship Specialty Start Date End Date Kameron German MD PCP - General Family Practice 10/21/11 12/21/[address] [address] documented as of this encounter
[2022-10-06 12:06] LABS: Troponin I* < 0.01 ng/mL (0.01-0.04)
[2022-10-06 13:21] VITALS: BP 121/69; PULSE 63; RESP 14; TEMP 36.6
== END 2022-10-06 13:21 | disposition home or self-care (01) ==
PROVIDERS: Emergency Provider Student in an Organized Health Care Education/Training Program; PCP Physician Assistant Medical
DX: R07.9 Chest pain, unspecified (principal); R06.02 Shortness of breath
CPT/HCPCS: 36415; 71046; 80053; 83880; 84484; 85025; 86140; 93005; 99283; 99284; 99285; J1885

== ENCOUNTER 2022-10-19 07:41 | Outpatient (CLI) | payer MEDICARE, OTHER, SELFPAY ==
--- OUTSIDE RECORDS SUMMARY | 2022-10-19 07:43 | XMS_ITS | Encounter Summary ---
:1960 Author Organization [facility] Address [address] [place] [address] Care Team Providers Name Role Phone Unavailable Primary Care Provider Unavailable Encounter Details Date Type Department Care Team Description 10/17/2017 Radiant Appointment Kameron Solomon Chronic pain of Orthopaedics Glory Encarnacion MD left knee [address] [place] [address] [phone] Social History Tobacco Use Types Packs/Day Years [...] Date/Time Associated Diagnosis Comme nts XR KNEE LEFT 1/2 Routine 10/17/2017 12:00 PM Chronic pain of l eft Results for this VIEWS SHIP CAPTAIN knee procedure are i n the results section. documented in this encounter Results XR Knee LT 1/2 vw (10/17/2017 12:00 PM SHIP CAPTAIN) Anatomical Region Laterality Modality Thigh, Knee, Leg Left Computed Radiography Specimen (Source) Anatomical Location Collection Method / Collectio n Time Received Time / Laterality Volume Impressions 10/17/2017 12:17 PM SHIP CAPTAIN IMPRESSION: Postsurgical changes in the region of the left proximal tibia/left proximal fibula, otherwise no acute bone abnormality noted. DONTE RANDALL MD Narrative 10/17/2017 12:17 PM SHIP CAPTAIN Exam: AP and lateral views of the [...] acute bone abnormality noted. DONTE RANDALL MD Kameron Morales MD IMG DIAGNOSTIC IMAGING ORDER TERESA documented in this encounter Visit Diagnoses Diagnosis Chronic pain of left knee Pain in joint, lower leg documented in this encounter
--- OUTSIDE RECORDS SUMMARY | 2022-10-19 07:43 | XMS_ITS | Encounter Summary ---
:1960 Author Organization [facility] Address [address] [place] [address]. [place] [address] Care Team Providers Name Role Phone Lucero Fraire MD Primary Care Provider Reason for Visit Reason Comments Tinnitus Encounter Details Date Type Department Care Team Description 08/01/2020 Emergency [facility], Jarod Tinnitus , bilateral; [facility] Emergency Dep t MD Taco History of CVA (cerebrovascular accident ) [address] [facility] [place], [place] [address] [address] [phone] [place], [place] [address] (Wo rk) Social History Tobacco Use Types [...] Care Everywhere. Tinnitus (Ringing in the Ears) (Cambodian)documented in this encounter Medications at Time of [...] and grossly normal bilaterally. Right Arm: Good floatlight loading supervisor strength. 5/5 elbow flexion. 5/5 elbow extension. Sensation intact to light touch. Left Arm: Good floatlight loading supervisor strength. 5/5 elbow flexion. 5/5 elbow extension. [...] Department Course ECG (19:19:19): Rate 71 bpm. MN interval 172. QRS duration 108. QT/QTc 410/445. P-R-T axes 47 - 25 22. Sinus rhythm with premature supraventricular complexes. Right bundle branch block. Abnormal ECG Interpreted at [address] [place], [place] [address]Jarod MD. Imaging: Radiology findings were communicated with the patient who voiced understanding of the findings. MR Brain without & with contrast: 1. ??Negative for acute intracranial process. 2. ??Chronic left MCA infarct/encephalomalacia. Minimal chronic hemosiderin staining. 3. ??Negative for acute hemorrhage, mass or abnormal enhancement. Imaging independently reviewed and agree with radiologist interpretation. MR Head without contrast Angiogram: 1. ??Normal MRA jena of [place]. Imaging independently reviewed and agree [...] i n the results section. MRA BRAIN ([place] OF STAT 08/01/2020 9:21 PM R esults [...] MR BRAIN W/O AND W CONTRAST LOCATION: [facility] DATE/TIME: 08/01/2020 8:16 PM INDICATION: Vertigo and tinnitus. Stroke like symptoms. COMPARISON: CT brain 04/05/2012. CONTRAST: 10 mL Gadavist. TECHNIQUE: Routine multiplanar multisequ ence head MRI without and with intravenous contrast. FINDINGS: INTRACRANIAL CONTENTS: No acute or subac lovelock infarct. No mass, acute hemorrhage, or extra-axial [...] MR BRAIN W/O AND W CONTRAST LOCATION: [facility] DATE/TIME: 08/01/2020 8:16 PM INDICATION: Vertigo and tinnitus. Stroke like symptoms. COMPARISON: CT brain 04/05/2012. CONTRAST: 10 mL Gadavist. TECHNIQUE: Routine multiplanar multisequ ence head MRI without and with intravenous contrast. FINDINGS: INTRACRANIAL CONTENTS: No acute or subac lovelock infarct. No mass, acute hemorrhage, or extra-axial [...] 9:57 PM CDT IMPRESSION: 1. ??Normal MRA jena of [place]. Narrative 08/01/2020 9:57 PM CDT EXAM: MRA BRAIN ([place] OF [place]) WO CONTRAST LOCATION: [facility] DATE/TIME: 08/01/2020 8:27 PM INDICATION: Stroke, follow up COMPARISON: None.. Vertigo and tinnitus. TECHNIQUE: 3D ndbp-wm-[id number] head MRA wi thout intravenous contrast. FINDINGS: ANTERIOR CIRCULATION: No stenosis/occlus ion, aneurysm, or high flow vascular malformation. Standard jena of [place] anatomy. POSTERIOR CIRCULATION: No stenosis/occlu ricardo, aneurysm, or high flow vascular malformation. Balanced vertebral arteries supply a normal basilar artery. Procedure Note Raymon Mcgrath MD - 08/01/2020Form atting of this note might be different from the original. EXAM: MRA BRAIN ([place]) WO CO NTRAST LOCATION: [facility] DATE/TIME: 08/01/2020 8:27 PM INDICATION: Stroke, follow up COMPARISON: None.. Vertigo and tinnitus. TECHNIQUE: 3D [id number]-md-dqzfvl head MRA wi thout intravenous contrast. FINDINGS: ANTERIOR CIRCULATION: No stenosis/occlus ion, aneurysm, or high flow vascular malformation. Standard jena of [place] anatomy. POSTERIOR CIRCULATION: No stenosis/occlu ricardo, aneurysm, or high flow vascular malformation. Balanced vertebral arteries supply a normal basilar artery. IMPRESSION: 1. Normal MRA jena of [place]. Jarod Rubin MD IMG MRI [...] NECK (CAROTIDS) WO and W CONTRAST LOCATION: [facility] DATE/TIME: 08/01/2020 8:27 PM INDICATION: Stroke, follow [...] (CAROTIDS) WO and W CONTR AST LOCATION: [facility] DATE/TIME: 08/01/2020 8:27 PM INDICATION: Stroke, follow [...] Signature Sodium 141 133 - 144 08/01/2020 [facility] mmol/L 8:08 PM [facility] Potassium 4.0 3.4 - 5.3 08/01/2020 [facility] mmol/L 8:08 PM [facility] Chloride 109 94 - 109 08/01/2020 [facility] mmol/L 8:08 PM [facility] Carbon Dioxide 26 20 - 32 08/01/2020 [facility] mmol/L 8:16 PM [facility] Anion Gap 6 3 - 14 08/01/2020 [facility] mmol/L 8:16 PM [facility] Glucose 94 70 - 99 08/01/2020 [facility] mg/dL 8:16 PM [facility] Urea Nitrogen 14 7 - 30 08/01/2020 [facility] mg/dL 8:16 PM [facility] Creatinine 1.01 0.66 - 08/01/2020 [facility] 1.25 mg/dL 8:16 PM [facility] GFR Estimate 79 >60 08/01/2020 [facility] mL/min/{1. 8:16 PM [facility] 73_m2} HOSPITAL Comment: Non GFR Calc Starting 11/07/2018, serum creatinine ba sed estimated GFR (eGFR) will be calculated using the Chronic Kidney Dise [facility] Epidemiology Collaboration (CKD-EPI) equation. GFR Estimate If >90 >60 mL/min/{1.73_m2} 08/01/2020 8: 16 PM [facility] Comment: GFR Calc Starting 11/07/2018, serum creatinine ba sed estimated GFR (eGFR) will be calculated using the Chronic Kidney Dise [facility] Epidemiology Collaboration (CKD-EPI) equation. Calcium 8.3 (L) 8.5 - 10.1 mg/dL 08/01/2020 8:[address] [facility] Specimen Anatomical Collection Method Collection Time Receive d Time (Source) Location / / Volume Laterality Blood specimen 08/01/2020 7:34 PM 020 7:52 (specimen) CDT PM CDT Jarod Rubin MD LAB - BLOOD ORDERABLES Performing Organization Address City/State/ZIP Code Phon e Number [place] [address] [phone] (ABNORMAL) CBC with platelets differential (08/01/2020 7:34 PM CDT) [facility] Method Time Signature WBC 11.4 (H) 4.0 - 08/01/2020 [facility] 11.0 7:56 PM [facility] 10e9/L [facility] RBC Count 5.42 4.4 - 5.9 08/01/2020 [facility] 10e12/L 7:56 PM [facility] Hemoglobin 16.1 13.3 - 08/01/2020 [facility] 17.7 g/dL 7:56 PM [facility] Hematocrit 49.5 40.0 - 08/01/2020 [facility] 53.0 % 7:56 PM [facility] MCV 91 78 - 100 08/01/2020 [facility] fl 7:56 PM [facility] MCH 29.7 26.5 - 08/01/2020 [facility] 33.0 pg 7:56 PM [facility] MCHC 32.5 31.5 - 08/01/2020 [facility] 36.5 g/dL 7:56 PM [facility] RDW 15.0 10.0 - 08/01/2020 [facility] 15.0 % 7:56 PM [facility] Platelet Count 341 150 - 450 08/01/2020 [facility] 10e9/L 7:56 PM [facility] Diff Method Automated 08/01/2020 [facility] Method 8:40 PM [facility] % Neutrophils 40.4 % 08/01/2020 [facility] 8:40 PM [facility] % Lymphocytes 43.5 % 08/01/2020 [facility] 8:40 PM [facility] % Monocytes 11.3 % 08/01/2020 [facility] 8:40 PM [facility] % Eosinophils 3.8 % 08/01/2020 [facility] 8:40 PM [facility] % Basophils 0.7 % 08/01/2020 [facility] 8:40 PM [facility] % Immature 0.3 % 08/01/2020 [facility] Granulocytes 8:40 PM [facility] Nucleated RBCs 0 0 /100 08/01/2020 [facility] 8:40 PM [facility] Absolute 4.6 1.6 - 8.3 08/01/2020 [facility] Neutrophil 10e9/L 8:40 PM [facility] Absolute 5.0 0.8 - 5.3 08/01/2020 [facility] Lymphocytes 10e9/L 8:40 PM [facility] Absolute 1.3 0.0 - 1.3 08/01/2020 [facility] Monocytes 10e9/L 8:40 PM [facility] Absolute 0.4 0.0 - 0.7 08/01/2020 [facility] Eosinophils 10e9/L 8:40 PM [facility] Absolute 0.1 0.0 - 0.2 08/01/2020 [facility] Basophils 10e9/L 8:40 PM [facility] Abs Immature 0.0 0 - 0.4 08/01/2020 [facility] Granulocytes 10e9/L 8:40 PM [facility] Absolute 0.0 08/01/2020 [facility] Nucleated RBC 8:40 PM [facility] RBC Morphology Consistent 08/01/2020 [facility] with reported 8:40 PM CDT [facility] results HOSPITAL Platelet Automated 08/01/2020 [facility] Estimate count 8:40 PM CDT [facility] confirmed. HOSPITAL Platelet morphology is normal. Specimen Anatomical Collection Method Collection Time Receive d Time (Source) Location / / Volume Laterality Blood specimen 08/01/2020 7:34 PM 020 7:52 (specimen) CDT PM CDT Jarod Rubin MD LAB - BLOOD ORDERABLES Performing Organization Address City/State/ZIP Code Phon e Number [facility] [address] [place], [place] [address] [facility] [address] [phone] EKG 12-lead, tracing only (08/01/2020 7:19 PM CDT) [facility] gist Method Time Signature Interpretation ECG Click View RADIOLOGY Image link RESULTS to view waveform and result Specimen (Source) Anatomical Collection Method Collection Time Re ceived Time Location / / Volume Laterality 08/01/2020 7:19 PM CDT Jarod Rubin MD ECG ORDERABLES Performing Organization Address City/State/ZIP [facility] Phon e Number RADIOLOGY RESULTS documented in [...] dose documented in this encounter Care Teams Concrete Finisher Apprentice Relationship Specialty Start Date End Date Lucero Fraire MD PCP - General 10/20/17 [facility] [id number] [place] [address] documented as of this encounter
--- OUTSIDE RECORDS SUMMARY | 2022-10-19 07:43 | XMS_ITS | Encounter Summary ---
:1960 Author Organization [facility] Address [address] [facility] [place] [address] Care Team Providers Name Role Phone Lucero Fraire MD Primary Care Provider Encounter Details Date Type Department Care Team Description 10/11/2017 Medical Correspondence [facility] Non-Provider ELECTROTHER APY ORDER Srs [address] [place] [address] Social History Tobacco Use Types Packs/Day Years Used Date Smoking Tobacco: Never Alcohol Use Standard Drinks/Week Comments No 0 (1 standard drink = 0.6 oz pure alcoho l) Sex Assigned at Date Recorded Not on file documented as of this encounter Plan of Treatment Not on filedocumented as of this encounter Visit Diagnoses Not on filedocumented in this encounter Care Teams Welfare Adviser Relationship Specialty Start Date End Date Lucero Fraire MD PCP - General 10/20/17 [facility] [address] [place] [address] documented as of this encounter
--- OUTSIDE RECORDS SUMMARY | 2022-10-19 07:43 | XMS_ITS | Encounter Summary ---
:1960 Author Organization [facility] Address [address] [place] [address]. [place] [address] Care Team Providers Name Role Phone Lucero Fraire MD Primary Care Provider Reason for Visit Reason Comments Chest Pain Encounter Details Date Type Department Care Team Description 01/18/2020 Emergency [facility] Jess Lovett A typical chest pain; [facility] Emergency PA Flank pain; Dept EMERGENCY PHYSICIANS Diarrhea; [address] HUNTER Cholelithiasis [place], [place] [address] [place] [phone] [place] [address] [place] [address] (Wo rk) Social History Tobacco [...] Comments Blood Pressure 133/89 01/18/2020 7:45 PM EXPLORATION DRILLER Pulse 69 01/18/2020 7:45 PM EXPLORATION DRILLER Temperature 36.9 ??C (98.4 ??F) 01/18/2020 6:50 PM EXPLORATION DRILLER Respiratory Rate 14 01/18/2020 8:00 PM EXPLORATION DRILLER Oxygen Saturation 96% 01/18/2020 8:00 PM EXPLORATION DRILLER Inhaled Oxygen Concentration - - Weight - - Height - - Body Mass Index - - documented in this encounter Discharge Instructions Discharge InstructionsJess Lovett PA - 01/18/2020 11:26 PM EXPLORATION DRILLER Today, your labs and EKG and chest [...] contain Tylenol?? (acetaminophen), including Vicodin??, Tylenol #3??, [place]??, Lortab??, and Percocet??. You should not take [...] if there is anything that worries you. ORATION DRILLER documented in this encounter Medications at Time [...] the left side from that as well. ORATION DRILLER Jess Lovett PA - 01/18/2020 6:31 PM [...] Department Course ECG (18:40:02): Rate 78 bpm. MA interval 164. QRS duration 90. QT/QTc 374/426. [...] tablet, R-0, Local Print Oliva Levin 01/18/2020 [facility] EM[facility] Scribe Disclosure: I, Oliva Levin, am serving as a scribe at 6:35 PM on 01/18/2020 to document services personally performed by Jess Lovett PA-C based on my observations and the provider's statements to me. This was created at least in part with a voice recognition software. Mistakes/typos may be present. Jess Lovett PA 01/19/20 1152 ORATION DRILLER documented in this encounter Plan of Treatment Not on filedocumented as of this encounter Procedures Procedure Name Priority Date/Time Associated Comments Diagnosis ROUTINE UA WITH STAT 01/18/2020 10:49 Results for this MICROSCOPIC PM EXPLORATION DRILLER procedure are i n the results section. CT ABDOMEN PELVIS W/O STAT 01/18/2020 10:32 Re sults for this CONTRAST PM EXPLORATION DRILLER procedure are i n the results section. TROPONIN I STAT 01/18/2020 9:26 PM Results f or this EXPLORATION DRILLER procedure are i n the results section. XR CHEST 2 VIEWS STAT 01/18/2020 8:17 PM Resul ts for this EXPLORATION DRILLER procedure are i n the results section. CBC WITH PLATELETS & STAT 01/18/2020 7:13 PM R esults for this DIFFERENTIAL EXPLORATION DRILLER procedure are i n the results section. TROPONIN I STAT 01/18/2020 7:13 PM Results f or this EXPLORATION DRILLER procedure are i n the results section. LIPASE STAT 01/18/2020 7:13 PM Results f or this EXPLORATION DRILLER procedure are i n the results section. D DIMER QUANTITATIVE STAT 01/18/2020 7:13 PM R esults for this EXPLORATION DRILLER procedure are i n the results section. COMPREHENSIVE STAT 01/18/2020 7:13 PM Results for this METABOLIC PANEL EXPLORATION DRILLER procedure ar e in the results section. EKG 12-LEAD, TRACING STAT 01/18/2020 6:40 PM R esults for this ONLY EXPLORATION DRILLER procedure are i n the results section. documented in this encounter Results (ABNORMAL) UA with Microscopic (01/18/2020 10:49 PM EXPLORATION DRILLER) [facility] Method Time Signature Color Urine Light Yellow 01/18/2020 [facility] 11:16 PM [facility] Appearance Urine Clear 01/18/2020 [facility] 11:16 PM [facility] Glucose Urine Negative NEG^Negat 01/18/2020 [facility] elijah mg/dL 11:16 PM [facility] Bilirubin Urine Negative NEG^Negat 01/18/2020 [facility] elijah 11:16 PM [facility] Ketones Urine Negative NEG^Negat 01/18/2020 [facility] elijah mg/dL 11:16 PM [facility] Specific [place] 1.015 1.003 - 01/18/2020 [facility] Urine 1.035 11:16 PM [facility] Blood Urine Negative NEG^Negat 01/18/2020 [facility] elijah 11:16 PM [facility] pH Urine 6.0 5.0 - 7.0 01/18/2020 [facility] pH 11:16 PM [facility] Protein Albumin Negative NEG^Negat 01/18/2020 [facility] Urine elijah mg/dL 11:16 PM [facility] Urobilinogen Normal 0.0 - 2.0 01/18/2020 [facility] mg/dL mg/dL 11:16 PM [facility] Nitrite Urine Negative NEG^Negat 01/18/2020 [facility] elijah 11:16 PM [facility] Leukocyte Negative NEG^Negat 01/18/2020 [facility] Esterase Urine elijah 11:16 PM [facility] Source Midstream 01/18/2020 [facility] Urine 10:49 PM [facility] WBC Urine <1 0 - 5 01/18/2020 [facility] /HPF 11:16 PM [facility] RBC Urine 0 0 - 2 01/18/2020 [facility] 11:16 PM [facility] Squamous 1 0 - 1 01/18/2020 [facility] /HPF 11:16 PM [facility] Urine [facility] Mucous Urine Present (A) NEG^Negat 01/18/2020 [facility]ah /LPF 11:16 PM [facility] Specimen (Source) Anatomical Collection Method Collection Time Re ceived Time Location / / Volume Laterality Examination of 01/18/2020 10:49 0 midstream urine PM EXPLORATION DRILLER 11:05 PM EXPLORATION DRILLER specimen (procedure) Jess [facility] LAB - URINE ORDERABLES Performing Organization Address City/State/ZIP Code Phon e Number M [place] [address] [address] [place], [place] [address] [facility] [address] [place], [place] [address] [place] [address] CT Abdomen Pelvis w/o Contrast (01/18/2020 10:32 PM EXPLORATION DRILLER) Anatomical Region Laterality Modality Abdomen/Pelvis, SUBRAD CT BODY, UMP CT ABDOMEN PELVIS, Computed Tomography RAD CT Specimen (Source) Anatomical Collection Method Collection Time Re ceived Time Location / / Volume Laterality 01/18/2020 10:27 PM EXPLORATION DRILLER Impressions 01/18/2020 11:02 PM EXPLORATION DRILLER IMPRESSION: 1. ??No urinary stones or hydronephrosis . 2. ??Cholelithiasis without pericholecys tic inflammation. 3. ??No other acute findings within limi ts of noncontrast scan. Narrative 01/18/2020 11:02 PM EXPLORATION DRILLER EXAM: CT ABDOMEN PELVIS W/O CONTRAST LOCATION: [facility] DATE/TIME: 01/18/2020 10:27 PM INDICATION: Left [...] EXAM: CT ABDOMEN PELVIS W/O CONTRAST LOCATION: [facility] DATE/TIME: 01/18/2020 10:27 PM INDICATION: Left [...] CT ORDERABLES Troponin I (01/18/2020 9:26 PM EXPLORATION DRILLER) athologist Signature Troponin I ES <0.015 0.000 - 01/18/2020 [facility] 0.045 ug/L 9:56 PM EXPLORATION DRILLER [facility] Comment: The 99th percentile for upper reference range is 0.045 ug/L. ??Troponin values in the range of 0.045 - 0.120 ug/L may b e associated with risks of adverse clinical events. Specimen Anatomical Collection Method Collection Time Receive d Time (Source) Location / / Volume Laterality Blood specimen 01/18/2020 9:26 PM 020 9:33 (specimen) EXPLORATION DRILLER PM EXPLORATION DRILLER Jess [facility] LAB - BLOOD ORDERABLES Performing Organization Address City/State/ZIP Code Phon e Number M [facility] [address] [place], [place] [address] [facility] [address] [place], [place] [address], [facility] [phone] XR Chest 2 Views (01/18/2020 8:17 PM EXPLORATION DRILLER) Anatomical Region Laterality Modality Chest Computed Radiography Specimen (Source) Anatomical Collection Method Collection Time Re ceived Time Location / / Volume Laterality 01/18/2020 8:03 PM EXPLORATION DRILLER Impressions 01/18/2020 8:41 PM EXPLORATION DRILLER IMPRESSION: Negative chest. Narrative 01/18/2020 8:41 PM EXPLORATION DRILLER EXAM: XR CHEST 2 VW LOCATION: [facility] DATE/TIME: 01/18/2020 8:03 PM INDICATION: Chest pain. COMPARISON: None. Procedure Note Kameron Puente MD - 01/18/2020Formattin g of this note might be different from the original. EXAM: XR CHEST 2 VW LOCATION: [facility] DATE/TIME: 01/18/2020 8:03 PM INDICATION: Chest pain. COMPARISON: None. IMPRESSION: Negative chest. Jess [facility]TER IMG DIAGNOSTIC IMAGING ORDER TERESA Troponin I (01/18/2020 7:13 PM EXPLORATION DRILLER) athologist Signature Troponin I ES <0.015 0.000 - 01/18/2020 [place] 0.045 ug/L 7:[address] [facility] Comment: The 99th percentile for upper reference range is 0.045 ug/L. ??Troponin values in the range of 0.045 - 0.120 ug/L may b e associated with risks of adverse clinical events. Specimen Anatomical Collection Method Collection Time Receive d Time (Source) Location / / Volume Laterality Blood specimen 01/18/2020 7:13 PM 020 7:23 (specimen) EXPLORATION DRILLER PM EXPLORATION DRILLER Jess [facility] - BLOOD ORDERABLES Performing Organization Address City/State/ZIP Code Phon e Vicky Phillips [facility] [address] [place], [place] [address] [facility] [address] [place], [place] [address], [facility] [phone] Lipase (01/18/2020 7:13 PM EXPLORATION DRILLER) athologist Signature Lipase 159 73 - 393 01/18/2020 [facility] U/L 7:44 PM [facility] Specimen Anatomical Collection Method Collection Time Receive d Time (Source) Location / / Volume Laterality Blood specimen 01/18/2020 7:13 PM 020 7:23 (specimen) EXPLORATION DRILLER PM EXPLORATION DRILLER Jess [facility] - BLOOD ORDERABLES Performing Organization Address City/State/ZIP Code Phon e Number M [facility] [address] [place] [address] [facility] [address] [phone] (ABNORMAL) Comprehensive metabolic panel (01/18/2020 7:13 PM EXPLORATION DRILLER) athologist Signature Sodium 141 133 - 144 01/18/2020 [facility] mmol/L 7:[address] [facility] Potassium 3.7 3.4 - 5.3 01/18/2020 [place] mmol/L 7:[address] [facility] Chloride 111 (H) 94 - 109 01/18/2020 [facility] mmol/L 7:[address] [facility] Carbon Dioxide 24 20 - 32 01/18/2020 [facility] mmol/L 7:[address] [facility] Anion Gap 6 3 - 14 01/18/2020 [facility] mmol/L 7:[address] [facility] Glucose 102 (H) 70 - 99 01/18/2020 [facility] mg/dL 7:[address] [facility] Urea Nitrogen 14 7 - 30 01/18/2020 [facility] mg/dL 7:[address] [facility] Creatinine 0.94 0.66 - 01/18/2020 [facility] 1.25 mg/dL 7:[address] [facility] GFR Estimate 87 >60 01/18/2020 [place] mL/min/{1. 7:41 PM [facility] 73_m2} HOSPITAL Comment: Non GFR Calc Starting 11/07/2018, serum creatinine ba sed estimated GFR (eGFR) will be calculated using the Chronic Kidney Dise ase Epidemiology Collaboration (CKD-EPI) equation. GFR Estimate If >90 >60 mL/min/{1.73_m2} 01/18/2020 7: 41 PM [facility] Comment: GFR Calc Starting 11/07/2018, serum creatinine ba sed estimated GFR (eGFR) will be calculated using the Chronic Kidney Dise ase Epidemiology Collaboration (CKD-EPI) equation. Calcium 8.4 (L) 8.5 - 10.1 01/18/2020 7:41 PM [facility] IDGES mg/dL [facility] Bilirubin Total 0.7 0.2 - 1.3 mg/dL 01/18/2020 7:44 PM [facility] Albumin 3.3 (L) 3.4 - 5.0 g/dL 01/18/2020 7:44 PM [facility] Protein Total 7.2 6.8 - 8.8 g/dL 01/18/2020 7:44 PM [facility] Alkaline Phosphatase 99 40 - 150 U/L 01/18/2020 7:44 PM [facility] ALT 48 0 - 70 U/L 01/18/2020 7:44 PM [facility] AST 28 0 - 45 U/L 01/18/2020 7:44 PM [facility] Specimen Anatomical Collection Method Collection Time Receive d Time (Source) Location / / Volume Laterality Blood specimen 01/18/2020 7:13 PM 020 7:23 (specimen) EXPLORATION DRILLER PM [facility] Jess [facility] - BLOOD ORDERABLES Performing Organization Address City/State/ZIP Code Phon e Number M [facility] [address] [place] [address] [facility] [address] [phone] D dimer quantitative (01/18/2020 7:13 PM EXPLORATION DRILLER) athologist Signature D Dimer 0.4 0.0 - 0.50 01/18/2020 [facility] ug/ml FEU 7:38 PM [facility] Comment: This D-dimer assay is intended [...] specimen 01/18/2020 7:13 PM 020 7:23 (specimen) EXPLORATION DRILLER PM EXPLORATION DRILLER Jess [facility] - BLOOD ORDERABLES Performing Organization Address City/State/ZIP Code Phon e Number M [place] [address] [address] [place], [place] [address] [facility] [address] [phone] (ABNORMAL) CBC with platelets differential (01/18/2020 7:13 PM EXPLORATION DRILLER) [facility] Method Time Signature WBC 12.1 (H) 4.0 - 01/18/2020 [facility] 11.0 7:29 PM [facility] 10e9/L [facility] RBC Count 5.21 4.4 - 5.9 01/18/2020 [facility] 10e12/L 7:[address] [facility] Hemoglobin 15.0 13.3 - 01/18/2020 [facility] 17.7 g/dL 7:[address] [facility] Hematocrit 46.4 40.0 - 01/18/2020 [facility] 53.0 % 7:[address] [facility] MCV 89 78 - 100 01/18/2020 [facility] fl 7:[address] [facility] MCH 28.8 26.5 - 01/18/2020 [facility] 33.0 pg 7:[address] [facility] MCHC 32.3 31.5 - 01/18/2020 [facility] 36.5 g/dL 7:[address] [facility] RDW 14.9 10.0 - 01/18/2020 [facility] 15.0 % 7:[address] [facility] Platelet Count 344 150 - 450 01/18/2020 [facility] 10e9/L 7:[address] [facility] Diff Method Automated 01/18/2020 [facility] Method 7:[address] [facility] % Neutrophils 43.8 % 01/18/2020 [facility] 7:[address] [facility] % Lymphocytes 42.2 % 01/18/2020 [facility] 7:57 PM EXPLORATION DRILLER [facility] % Monocytes 10.9 % 01/18/2020 [facility] 7:[address] [facility] % Eosinophils 2.2 % 01/18/2020 [facility] 7:[address] [facility] % Basophils 0.4 % 01/18/2020 [facility] 7:[address] [facility] % Immature 0.5 % 01/18/2020 [facility] Granulocytes 7:[address] [facility] Nucleated RBCs 0 0 /100 01/18/2020 [facility] 7:[address] [facility] Absolute 5.3 1.6 - 8.3 01/18/2020 [facility] Neutrophil 10e9/L 7:[address] [facility] Absolute 5.1 0.8 - 5.3 01/18/2020 [facility] Lymphocytes 10e9/L 7:[address] [facility] Absolute 1.3 0.0 - 1.3 01/18/2020 [facility] Monocytes 10e9/L 7:[address] [facility] Absolute 0.3 0.0 - 0.7 01/18/2020 [facility] Eosinophils 10e9/L 7:[address] [facility] Absolute 0.1 0.0 - 0.2 01/18/2020 [facility] Basophils 10e9/L 7:[address] [facility] Abs Immature 0.1 0 - 0.4 01/18/2020 [facility] Granulocytes 10e9/L 7:[address] [facility] Absolute 0.0 01/18/2020 [facility] Nucleated RBC 7:[address] [facility] RBC Morphology Consistent 01/18/2020 [facility] with reported 7:57 PM [facility] Platelet Automated 01/18/2020 [facility] Estimate count 7:57 PM [facility] HOSPITAL Platelet morphology is normal. Specimen Anatomical Collection Method Collection Time Receive d Time (Source) Location / / Volume Laterality Blood specimen 01/18/2020 7:13 PM 020 7:23 (specimen) EXPLORATION DRILLER PM EXPLORATION DRILLER Jess [facility] - BLOOD ORDERABLES Performing Organization Address City/State/ZIP Code Phon e Number M [facility] [address] [place], [place] [address] [facility] [address] [place] [address] [phone] EKG 12-lead, tracing only (01/18/2020 6:40 PM EXPLORATION DRILLER) [facility] gist Method Time Signature Interpretation ECG Click View RADIOLOGY Image link RESULTS to view waveform and result Specimen (Source) Anatomical Collection Method Collection Time Re ceived Time Location / / Volume Laterality 01/18/2020 6:40 PM EXPLORATION DRILLER Jess HUNTER ECG ORDERABLES Performing Organization Address [...] chewable tablet 162 Given 01/18/2020 7:02 PM EXPLORATION DRILLER 1 62 mg mg 162 mg, Oral, ONCE, On 01/18/20 at 1847, For 1 dose lidocaine (XYLOCAINE) 2 % 15 mL, alum & mag Given 01/18/2020 7:03 PM EXPLORATION DRILLER 30 mLs hydroxide-simethicone (MAALOX ES) 15 mL GI Cocktail 30 mL, Oral, ONCE, On 01/18/20 at 1847, For 1 dose documented in this encounter Active and Recently Administered Medications Times are shown in EXPLORATION DRILLER. Scheduled Medication Order 01/16/2020 01/17/2020 01/18/2020 aspirin [...] dose documented in this encounter Care Teams Clinical Documentation Clerk Relationship Specialty Start Date End Date Luceor Fraire MD PCP - General 10/20/17 [place] [id number] [place] [address] documented as of this encounter
--- OUTSIDE RECORDS SUMMARY | 2022-10-19 07:43 | XMS_ITS | Encounter Summary ---
:1960 Author Organization [facility] Address [address] [place] [address]. [place] [address] Care Team Providers Name Role Phone Unavailable Primary Care Provider Unavailable Reason for Visit Reason Onset Date Comments *-*INCOMING RECORDS*-* 10/17/2017 [facility] Encounter Details Date Type Department Care Team Description 10/17/2017 PRE VISIT [facility] Orthopaedic Carmen, Kameron Encarnacion, * -*INCOMING RECORDS*-* Clinic MD ([facility]) [address] [place] [address] 4th [address] [place] [address] [phone] (Wo rk) Social History Tobacco Use Types [...] LVM for pt again - 2nd attempt STRIAL TRUCK OPERATOR Telephone Encounter - Radha Brian - 10/11/2017 9:47 AM CST Phone Call: Who did you talk to? (or) Who did you call? patient Call Detail/Action: LVM for pt -- where are additional records STRIAL TRUCK OPERATOR Telephone Encounter - Kassandra Ace - 10/07/2017 10:02 AM CST Records Received From: Livier Diaz Date/Exam/Location (specify location if different) Office Notes: 04/05/16, 07/05/16, 12/06/16, 03/21/17, 04/25/17 Procedure Notes: (include injections) - FL injection tib fib joint left 06/21/16 Missing: - MRI left knee with PCP - cortisone injection with PCP - left proximal tib-fib joint fusion 2016 - CT done STRIAL TRUCK OPERATOR Telephone Encounter - Radha Brian - 10/07/2017 9:09 AM CST ACTION What did you do? Faxed 2nd request for records to [facility] STRIAL TRUCK OPERATOR Telephone Encounter - Radha Brian - 10/03/2017 8:15 AM CST Radiology Reports From: [facility]/ Livier Diaz Exam Date/Name: XR L Knee 04/05/16, 10/25/16, 12/06/16, 03/21/17, 06/06/17 ,07/11/17, 08/22/17 XR L Tib/Fib 04/05/16, 10/11/16, 02/07/17 CT L Knee 04/22/17 Comments: Imaging available to view in Pacs STRIAL TRUCK OPERATOR Telephone Encounter - Radha Brian - 09/30/2017 1:34 PM CST APPT INFO Date /Time: 10/17/17 12pm Reason for Appt: L Knee Injury & Pain Ref Provider/Clinic: Dr. Morales Are there internal records? If yes, list: no Patient Contact (Y/N) & Call Details: No - pt is transferring care with Dr. Morales from [facility] Action: Faxed request for records/imaging OUTSIDE RECORDS CHECKLIST CLINIC NAME COMMENTS REC (x) IMG (x) [facility] x STRIAL TRUCK OPERATOR documented in this encounter Plan of Treatment Not on filedocumented as of this encounter Visit Diagnoses Not on filedocumented in this encounter
--- OUTSIDE RECORDS SUMMARY | 2022-10-19 07:43 | XMS_ITS | Encounter Summary ---
:1960 Author Organization [facility] Address [address] [place] [address]. [place] [address] Care Team Providers Name Role Phone Lucero Fraire MD Primary Care Provider Reason for Referral - Closed Specialty Diagnoses / Procedures Referred By Contact Refer red To Contact Diagnoses Other chronic pain Carmita Morales MD [address] [place] [address] [address] [place], [place] [address] Referral ID Status Reason Start Date Expiration Date Visits Requ ested Visits Authorized [id number] Closed 12/19/2017 12/19/2018 1 1 ETITIVE ATHLETE Reason for Visit Reason Comments RECHECK f/u MRI and EMG. Left fib/ti b injury, W/C Encounter Details Date Type Department Care Team Description 12/19/2017 Office Visit [facility]opa[facility] Carmita Morales, [facility] (Primary Dx) [address] [place] [address] 4th Floor [address] [place] [address] [phone] (Wo rk) Social History Tobacco Use Types [...] have him see Dr. Vitaly Miramontes at [facility]. cc:Vitaly Miramontes MD [facility] CARMITA MORALES MD MT: ML Name: SHASHAKN HASTINGS Account: [id number] : 1960 Service Date: 12/19/2017 Document: [id number] ETITIVE ATHLETE Carmita Morales MD - 12/19/2017 3:45 PM [...] Difficulty walking: Yes Paralysis: No Numbness: Yes ETITIVE ATHLETE documented in this encounter Plan of Treatment Scheduled Referrals Name Type Priority Associated Diagnoses Order S chedule PAIN MANAGEMENT REFERRAL Referral Routine Other chronic pa in Ordered: 12/19/2017 documented as of this encounter Visit Diagnoses Diagnosis Other chronic pain - Primary documented in this encounter Care Teams Melting Operator Relationship Specialty Start Date End Date Lucero Fraire MD PCP - General 10/20/17 [facility] [address] [place] [address] documented as of this encounter
--- OUTSIDE RECORDS SUMMARY | 2022-10-19 07:43 | XMS_ITS | Encounter Summary ---
:1960 Author Organization [place] Address [address] [place] [address]. [place] [address] Care Team Providers Name Role Phone Lucero [...] on filedocumented in this encounter Care Teams Charge Lpn Relationship Specialty Start Date End Date Lucero Fraire MD PCP - General 10/20/17 [facility] [address] [place], [place] [id number] documented as of this encounter
--- OUTSIDE RECORDS SUMMARY | 2022-10-19 07:43 | XMS_ITS | Encounter Summary ---
:1960 Author Organization [place] Address [address] [place] [address]. [place] [address] Care Team Providers Name Role Phone Lucero Fraire MD Primary Care Provider Reason for Visit (Routine) - Closed Specialty Diagnoses / Procedures Referred By Contact Refer red To Contact Radiology / Radiology. Diagnoses SB PT, epic order, W/C, informed of arrival time Rh Mr i Rscc [place] [address] [address] [place] [address] Phone: Fax: Referral ID Status Reason Start Date Expiration Date Visits Requ ested Visits Authorized [id number] Closed 10/21/2017 10/21/2018 1 1 Encounter Details Date Type Department Care Team Description 10/26/2017 Hospital Encounter [facility] Shantell Garcia, Chronic pain of [facility] CORPORATE GIVING MANAGER LICENSED LOAN OFFICER left knee [address] [facility] [address] [place] [address] [phone] Social History Tobacco Use Types Packs/Day Years [...] left Results for this JOINT LEFT W/O CHERRY PITTER knee procedure are in CONTRAST the results section. documented in this encounter Results MRI Lower extremity joint w/o contrast LT* (10/26/2017 10:39 AM CHERRY PITTER) Anatomical Region Laterality Modality Lower Extremity, SUBRAD MR MSK, UMP MR MSK Magnetic Resonance Specimen (Source) Anatomical Location Collection Method / Collectio n Time Received Time / Laterality Volume Impressions 10/26/2017 11:15 AM CHERRY PITTER IMPRESSION: Old surgical changes of the proximal tibiofibular fusion. 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 I berenice pect there are degenerative changes elsewhere in this joint. No othe r abnormality is demonstrated. FATOUMATA LANDAVERDE MD Narrative 10/26/2017 11:15 AM CHERRY PITTER MRI LEFT KNEE WITHOUT CONTRAST October 26, [...] is demonstrated. FATOUMATA LANDAVERDE MD Shantell Garcia CORPORATE GIVING MANAGER LICENSED LOAN OFFICER IMG MRI ORDERABLES documented in this encounter Visit Diagnoses Diagnosis Chronic pain of left knee Pain in joint, lower leg documented in this encounter Care Teams Hand Mold Maker Relationship Specialty Start Date End Date Lucero Fraire MD PCP - General 10/20/[address] [address] documented as of this encounter
--- OUTSIDE RECORDS SUMMARY | 2022-10-19 07:43 | XMS_ITS | Encounter Summary ---
:1960 Author Organization [place] Address [facility] [place] [address] Care Team Providers Name Role Phone Lucero Fraire MD Primary Care Provider Encounter Details Date Type Department Care Team Description 01/13/2018 Medical Correspondence [facility] Scan [employer] PATIENT Health Info Mgmt Non-Provider COMMUNICATI ON Srvcs [address] [place] [address] Social History Tobacco Use Types Packs/Day [...] filedocumented in this encounter Care Teams Manager Lvn Relationship Specialty Start Date End Date Lucero Fraire MD PCP - General 10/20/17 [facility] [address] [place], [place] [id number] documented as of this encounter
--- OUTSIDE RECORDS SUMMARY | 2022-10-19 07:43 | XMS_ITS | Encounter Summary ---
:1960 Author Organization [place] Address [address] [place] [address]. [place] [address] Care Team Providers Name Role Phone Unavailable Primary Care Provider Unavailable Encounter Details Date Type Department Care Team Description 10/07/2017 Orders Only [facility] Orthopaedic Carmen, Chun Crawford hronic pain of left Clinic knee (Primary Dx) [address] 4[address] [place] [address] [phone] (Wo rk) Social History Tobacco Use Types Packs/Day Years Used Date Smoking Tobacco: Never Alcohol Use Standard Drinks/Week Comments No 0 (1 standard drink = 0.6 oz pure alcoho l) Sex Assigned at Date Recorded Not on file documented as of this encounter Plan of Treatment Not on filedocumented as of this encounter Results XR Knee LT 1/2 vw (10/17/2017 12:00 PM COLOR DIPPER) Anatomical Region Laterality Modality Thigh, Knee, Leg Left Computed Radiography Specimen (Source) Anatomical Location Collection Method / Collectio n Time Received Time / Laterality Volume Impressions 10/17/2017 12:17 PM COLOR DIPPER IMPRESSION: Postsurgical changes in the region of the left proximal tibia/left proximal fibula, otherwise no acute bone abnormality noted. DONTE RANDALL MD Narrative 10/17/2017 12:17 PM COLOR DIPPER Exam: AP and lateral views of the [...]
--- OUTSIDE RECORDS SUMMARY | 2022-10-19 07:43 | XMS_ITS | Encounter Summary ---
:1960 Author Organization [place] Address [facility]0 [facility] [address] Care Team Providers Name Role Phone Lucero [...] on filedocumented in this encounter Care Teams Keg Filler Relationship Specialty Start Date End Date Lucero Fraire MD PCP - General 10/20/17 [facility] [address] [place], [place] [id number] documented as of this encounter
--- OUTSIDE RECORDS SUMMARY | 2022-10-19 07:43 | XMS_ITS | Encounter Summary ---
:1960 Author Organization [place] Address [address] [facility] [place] [address] Care Team Providers Name Role Phone Lucero Fraire MD Primary Care Provider Encounter Details Date Type Department Care Team Description 10/20/2017 Medical Correspondence [facility] Scan, [facility] Health Info Mgmt Non-Provider ELECTROTHER APY ORDER Srvcs [address] [place] [address] Social History Tobacco Use Types [...] filedocumented in this encounter Care Teams Fire Code Inspector Relationship Specialty Start Date End Date Lucero Fraire MD PCP - General 10/20/17 [facility] [address] [place] [address] documented as of this encounter
--- OUTSIDE RECORDS SUMMARY | 2022-10-19 07:43 | XMS_ITS | Encounter Summary ---
:1960 Author Organization [place] Address [facility]0 [facility] [place] [address] Care Team Providers Name Role Phone Lucero Fraire MD Primary Care Provider Encounter Details Date Type Department Care Team Description 2017 Medical Correspondence [facility] Scan, COMPLIANCE REPORT Health Info Mgmt Non-Provider Srvcs [address] [place] [address] Social History Tobacco Use Types Packs/Day Years Used Date Smoking Tobacco: Never Alcohol Use Standard Drinks/Week Comments No 0 (1 standard drink = 0.6 oz pure alcoho l) Sex Assigned at Date Recorded Not on file documented as of this encounter Plan of Treatment Not on filedocumented as of this encounter Visit Diagnoses Not on filedocumented in this encounter Care Teams Pepper Cutter Relationship Specialty Start Date End Date Lucero Fraire MD PCP - General 10/20/17 [place] [id number] [place] [address] documented as of this encounter
--- OUTSIDE RECORDS SUMMARY | 2022-10-19 07:43 | XMS_ITS | Encounter Summary ---
:1960 Author Organization [place] Address [address] [place] [address]. [place] [address] Care Team Providers Name Role Phone Unavailable Primary Care Provider Unavailable Reason for Visit Reason Comments RECHECK Left knee injury. Left tib-f ib fusion. 09/27/16. Encounter Details Date Type Department Care Team Description 10/17/2017 Office Visit [facility] Orthopaedic Kameron Morales C hronic pain of left Clinic MD knee (Primary Dx) 909 [facility] [address] [place] [address] 4th Floor [address] [place] [address] [phone] (Wo rk) Social History Tobacco Use Types Packs/Day Years Used Date Smoking Tobacco: Never Smokeless Tobacco: Never Alcohol Use Standard Drinks/Week Comments No 0 (1 standard drink = 0.6 oz pure alcoho l) Sex Assigned at Date Recorded Not on file documented as of this encounter Progress Notes Shantell Garcia, APPLE CHECKER TRAPEZE ARTIST - 10/17/2017 12:00 PM CST CC: left [...] have seen and examined this patient with Shantell Garcia APRN, TRAPEZE ARTIST. AGE REGULATOR ASSEMBLER documented in this encounter Nursing Notes Autumn Love ATC - 10/17/2017 12:00 PM CST Reason For Visit: Chief Complaint Patient presents with ??? RECHECK Left knee injury. Left tib-fib fusion. 09/27/16. Pain Assessment Patient Currently in Pain: Yes 0-10 Pain Scale: 4 Primary Pain Location: Knee Pain Orientation: Left Pain Descriptors: Aching Alleviating Factors: Rest Aggravating Factors: Movement AGE REGULATOR ASSEMBLER documented in this encounter Miscellaneous Notes Addendum Note - Autumn Love ATC - 10/17/2017 1:30 PM VOLTAGE REGULATOR ASSEMBLER Addended by: AUTUMN LOVE on: 10/17/2017 01:30 PM Modules accepted: Orders AGE REGULATOR ASSEMBLER documented in this encounter Plan of Treatment Not on filedocumented as of this encounter Results MRI Lower extremity joint w/o contrast LT* (10/26/2017 10:39 AM VOLTAGE REGULATOR ASSEMBLER) Anatomical Region Laterality Modality Lower Extremity, SUBRAD MR MSK, UMP MR MSK Magnetic Resonance Specimen (Source) Anatomical Location Collection Method / Collectio n Time Received Time / Laterality Volume Impressions 10/26/2017 11:15 AM VOLTAGE REGULATOR ASSEMBLER IMPRESSION: Old surgical changes of the proximal tibiofibular fusion. 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 I berenice pect there are degenerative changes elsewhere in this joint. No othe r abnormality is demonstrated. FATOUMATA LANDAVERDE MD Narrative 10/26/2017 11:15 AM VOLTAGE REGULATOR ASSEMBLER MRI LEFT KNEE WITHOUT CONTRAST October 26, [...] demonstrated. FATOUMATA LANDAVERDE MD Shantell Garcia APRN TRAPEZE ARTIST IMG MRI ORDERABLES documented in this encounter Visit Diagnoses Diagnosis Chronic pain of left knee - Primary Pain in joint, lower leg Chronic pain of left knee Pain in joint, lower leg documented in this encounter
--- OUTSIDE RECORDS SUMMARY | 2022-10-19 07:43 | XMS_ITS | Encounter Summary ---
:1960 Author Organization [place] Address [address] [place] [address]. [place] [address] Care Team Providers Name Role Phone Lucero Fraire MD Primary Care Provider Reason for Visit Reason Comments Forms [facility] Work Comp HCPR form for DOI: 08/15/15 Encounter Details Date Type Department Care Team Description 01/19/2018 Documentation Only Kameron Solomon Forms ([facility] Work Orthopaedic Clinic MD Shashank Comp HCPR form for [address] [place] [address] DOI: [address] [place] [address] Social History Tobacco Use Types Packs/Day Years Used Date Smoking Tobacco: Never Smokeless Tobacco: Never Alcohol Use Standard Drinks/Week Comments No 0 (1 standard drink = 0.6 oz pure alcoho l) Sex Assigned at Date Recorded Not on file documented as of this encounter Progress Notes Trinidad Sutton - 01/19/2018 2:07 PM CST Date Received: 01/19/18 Form Type: [facility] HCPR form Doctor: Tatiana Morales Status: 03/08/18 Completed form fax'd to [facility] Ins @ and scanned into [employer]. Trinidad Sutton, Admin Coord. II, Orthopaedics documented in this encounter Plan of Treatment Not on filedocumented as of this encounter Visit Diagnoses Not on filedocumented in this encounter Care Teams Info Print Press Operator Relationship Specialty Start Date End Date Lucero Fraire MD PCP - General 10/20/17 [facility] [address] [place] [address] documented as of this encounter
--- OUTSIDE RECORDS SUMMARY | 2022-10-19 07:43 | XMS_ITS | Clinical Summary ---
:1960 Author Organization [place] Address [address] [place] [address]. [place] [address] Care Team Providers Name Role Phone Lucero [...] (Cologuard) 1960 FIT 1960 FLEX SIG 1960 COVID-19 Vaccine (#1) 03/22/1959 HIV SCREENING 1973 [...] ype Group Dates 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 [id number] 2015-Pres [phone] [address] [place] [address] /CHAMP FOR [id number] 2019-Prese [phone] F OR Indemnity [place] LIFE nt 404 LIFE [address] [place] [address] MEDICARE MEDICARE [id number] 2018-Pres [phone] ATTMilagros ADAN [place] Medicare ent 340 [address] [place] [address] Andrea Hastings Worker's Self 1960 [phone] [address] [place] as A Compensation [address] none (Work) [place] [address] Andrea Hastings Worker's Self 1960 [phone] [place] as [place] Compensation [address] ([address] none (Work) [place] [address] Care Teams Research Assoc Relationship Specialty Start Date End Date Lucero Fraire MD PCP - General 10/20/17 [facility] [address] [place] [address]
--- OUTSIDE RECORDS SUMMARY | 2022-10-19 07:44 | XMS_ITS | Encounter Summary ---
:1960 Author Organization [place] Address [address] [place] [address] Care Team Providers Name Role Phone Unavailable Primary Care Provider Unavailable Encounter Details Date Type Department Care Team Description 01/25/2008 Historic Results Physical Medicine and Johny, Sc robb Mccollum MD Rehabilitation Clini c [address] [place], [place] [id number] [place], [place] 1st Floor, Clinic [address] [place] [address] [place] [phone] (Work) [phone] Social History Tobacco Use Types Packs/Day Years Used Date Smoking Tobacco: Never Assessed Sex Assigned at Date Recorded Not on file documented as of this encounter Plan of Treatment Not on filedocumented as of this encounter Procedures Procedure Name Priority Date/Time Associated Comments Diagnosis INR Routine 01/25/2008 2:20 PM Results f or this FRUIT VENDOR procedure are i n the results section. PARTIAL THROMBOPLASTIN Routine 01/25/2008 2:20 PM Results for this TIME FRUIT VENDOR procedure are i n the results section. ELECTROLYTE PANEL STAT 01/25/2008 1:45 PM Resu lts for this FRUIT VENDOR procedure are i n the results section. HEMOGRAM DIFFERENTIAL STAT 01/25/2008 1:45 PM Results for this AND PLATELET FRUIT VENDOR procedure are i n the results section. UREA NITROGEN (BUN) STAT 01/25/2008 1:45 PM Re sults for this FRUIT VENDOR procedure are i n the results section. CREATININE STAT 01/25/2008 1:45 PM Results f or this FRUIT VENDOR procedure are i n the results section. GLUCOSE STAT 01/25/2008 1:45 PM Results f or this FRUIT VENDOR procedure are i n the results section. documented in this encounter Results INR (01/25/2008 2:20 PM FRUIT VENDOR) athologist Signature INR 0.92 0.86 - 1.14 MISYS Specimen Anatomical Collection Method Collection Time Receive d Time (Source) Location / / Volume Laterality 01/25/2008 2:20 PM 8 2:37 FRUIT VENDOR PM FRUIT VENDOR Tomy Mcclain MD LAB - BLOOD ORDERABLES Performing Organization Address [facility] Code Phon e Number MISYS Partial thromboplastin time (01/25/2008 2:20 PM FRUIT VENDOR) athologist Signature PTT 24 22 - 37 sec MISYS Specimen Anatomical Collection Method Collection Time Receive d Time (Source) Location / / Volume Laterality 01/25/2008 2:20 PM 8 2:37 FRUIT VENDOR PM FRUIT VENDOR Tomy Mcclain MD LAB - BLOOD ORDERABLES Performing Organization Address [facility] Code Phon e Number MISYS Hemogram differential and platelet (01/25/2008 1:45 PM FRUIT VENDOR) [facility] gist Method Time Signature MCV 87 [...] / Volume Laterality 01/25/2008 1:45 PM 8 FRUIT VENDOR 12:54 PM FRUIT VENDOR Omega Poe MD LAB - BLOOD ORDERABLES Performing Organization Address City/State/ZIP Code Phon e Number MISYS (ABNORMAL) Electrolyte panel (01/25/2008 1:45 PM FRUIT VENDOR) athologist Signature Sodium 145 (H) 133 - 144 MISYS mmol/L Potassium 3.9 3.4 - 5.3 MISYS mmol/L Chloride 109 94 - 109 MISYS mmol/L Carbon Dioxide 27 20 - 32 MISYS mmol/L Anion Gap 9 6 - 17 MISYS mmol/L Specimen Anatomical Collection Method Collection Time Receive d Time (Source) Location / / Volume Laterality 01/25/2008 1:45 PM 8 FRUIT VENDOR 12:54 PM FRUIT VENDOR Omega Poe MD LAB - BLOOD ORDERABLES Performing Organization Address City/[facility] Code Phon e Number MISYS Creatinine (01/25/2008 1:45 PM FRUIT VENDOR) athologist Signature Creatinine 0.95 0.80 - MISYS 1.50 mg/dL GFR Estimate 90 >60 MISYS mL/min/1.7 m2 GFR Estimate If >90 >60 MISYS Black mL/min/1.7 m2 Specimen Anatomical Collection Method Collection Time Receive d Time (Source) Location / / Volume Laterality 01/25/2008 1:45 PM 8 FRUIT VENDOR 12:54 PM FRUIT VENDOR Omega Poe MD LAB - BLOOD ORDERABLES Performing Organization Address City/State/ZIP Code Phon e Number MISYS Urea nitrogen (01/25/2008 1:45 PM FRUIT VENDOR) athologist Signature Urea Nitrogen 9 5 - 24 MISYS mg/dL Specimen Anatomical Collection Method Collection Time Receive d Time (Source) Location / / Volume Laterality 01/25/2008 1:45 PM 8 FRUIT VENDOR 12:54 PM FRUIT VENDOR Omega Poe MD LAB - BLOOD ORDERABLES Performing Organization Address City/State/ZIP [facility] Phon e Number MISYS Glucose (01/25/2008 1:45 PM FRUIT VENDOR) P athologist Signature Glucose 80 60 - 99 MISYS mg/dL Specimen Anatomical Collection Method Collection Time Receive d Time (Source) Location / / Volume Laterality 01/25/2008 1:45 PM 8 FRUIT VENDOR 12:54 PM FRUIT VENDOR Omega Poe MD LAB - BLOOD ORDERABLES Performing Organization Address City/State/[facility] Phon e Number MISYS documented in this encounter Visit Diagnoses Not on filedocumented in this encounter
--- OUTSIDE RECORDS SUMMARY | 2022-10-19 07:44 | XMS_ITS | Encounter Summary ---
:1960 Author Organization [place] Address [address] [place] [address]. [place] [address] Care Team Providers Name Role Phone Unavailable Primary Care Provider Unavailable Encounter Details Date Type Department Care Team Description 10/09/2008 Office Visit-[facility] Adult Neuropsycholog y Brittni Baugh 6th Floor, Clinic 6A [facility] KATIE Brandon [address] [phone] (Wo rk) [address] [phone] Social History Tobacco Use Types Packs/Day Years Used Date Smoking Tobacco: Never Assessed Sex Assigned at Date Recorded Not on file documented as of this encounter Progress Notes Paula Brittni G - 10/09/2008 8:30 AM CST Junior Account Executive: Brittni Baugh Status: Final - Signature Encounter: 09 Oct 2008 Type: Neuropsych Lab Visit 1 Shashank HASTINGS MR#: [id number] 10/09/08 NEUROPSYCHOLOGICAL EVALUATION RELEVANT HISTORY AND REASON FOR REFERRAL Shashank Hastings is a 48-year-old, 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 Information [...] GED. 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 Next, he was in the [employer] for 11 years, and the [employer] for seven years. He retired from the at 39. 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 [...] following measures were administered by a trained guidance counselor, under the direct supervision ofa licensed psychologist. Subtests of the Christy Adult Intelligence Scale-III; Reading subtest of the Wide Range AchievementTest-4; Logical Memory subtest of the Christy Memory Scale-3; Get Complex Figure Test; [place] Verbal Learning Test-2; [place] Naming Test; Controlled Oral Word Association Test; Clock Drawing; [place] Making Test; Stroop; [place] Card Sorting Test; [...] L.P. 4336 Board Certified in Clinical Neuropsychology, [facility] Time spent: Four hours professional time, including interview, interpretation, and report writing (CPT 91476); three hours guidance counselor time, including test administration (CPT 97879. 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 EGH: carmen Electronically signed by:BRITTNI BAUGH PhD,LP Oct 23 2008 1:32PM DIRECT MAIL CLERK CT MAIL CLERK Brittni Baugh - 10/09/2008 8:30 AM CST Junior Account Executive: Brittni Baugh Status: Final - Signature Encounter: [...] Recall from Recency 34 0.5 Total Learning [place] 1.6 0.5 Across-Trial Consistency 80 0 Total Repetitions 6 0.5 Total Intrusions 11 1.5 Total Recall Discrim 1.6 -0.5 Recognition Hits 12 -1 Recognition False Pos 8 1.5 Recognition Discrim 1.3 -1.5 Response Bias 0 -0.5 Electronically signed by:BRITTNI BAUGH PhD,LP Oct 23 2008 12:39PM DIRECT MAIL CLERK CT MAIL CLERK documented in this encounter Plan of Treatment Not on filedocumented as of this encounter Visit Diagnoses Not on filedocumented in this encounter
--- OUTSIDE RECORDS SUMMARY | 2022-10-19 07:44 | XMS_ITS | Encounter Summary ---
:1960 Author Organization [address] [place] [address] Care Team Providers Name Role Phone Kameron German MD Primary Care Provider Encounter Details Date Type Department Care Team Description 01/19/[address] [facility] Clarence Maciel, Rehabilitation HOT ROLLER Services [address] [id number] Social History Tobacco Use Types Packs/Day Years Used Date Smoking Tobacco: Never Assessed Sex Assigned at Date Recorded Not on file documented as of this encounter Progress Notes Isabella Maciel, HOT ROLLER - 10/26/2011 3:32 PM DRILLING MACHINE RUNNER FINAL SPEECH LANGUAGE PATHOLOGY PROGRESS REPORT PATIENT [...] as driving a car without being distracted). Xendo software visual attention and tracking average between [...] please feel free to contact me at [phone]. Electronically signed on 01/31/2008 15:06 by ISABELLA MACIEL MA,CCC-HOT ROLLER MT: roberta Name: SHASHANK HASTINGS MRN: [id number] Account: [id number] : 1960 Visit Date: 01/19/2008 Sex: M Age: 47 Document: [id number] LING MACHINE RUNNER documented in this encounter Plan of Treatment Not on filedocumented as of this encounter Visit Diagnoses Not on filedocumented in this encounter Care Teams School Psychological Examiner Relationship Specialty Start Date End Date Kameron German MD PCP - General Family Practice 10/21/11 12/21/[address] [address] documented as of this encounter
--- OUTSIDE RECORDS SUMMARY | 2022-10-19 07:44 | XMS_ITS | Encounter Summary ---
:1960 Author Organization [address] [place] [address] Care Team Providers Name Role Phone Unavailable Primary Care Provider Unavailable Encounter Details Date Type Department Care Team Description 02/17/2008 Consultation [facility] Isabella Maciel, SALES AND MARKETING VICE PRESIDENT Hospital Results [address] [address] (Wo rk) Social History Tobacco Use Types Packs/Day Years Used Date Smoking Tobacco: Never Assessed Sex Assigned at Date Recorded Not on file documented as of this encounter Procedure Notes Isabella Maciel, SALES AND MARKETING VICE PRESIDENT - 03/08/2008 2:43 PM CDT FINAL SPEECH-LANGUAGE [...] patient. Please call with any questions at [phone]. Electronically signed on 03/08/2008 14:42 by ISABELLA MACIEL MA,CCC-SALES AND MARKETING VICE PRESIDENT MT: roberta Name: SHASHANK HASTINGS MRN: [id number] Account: [id number] : 1960 Visit Date: 02/17/2008 Sex: M Age: 47 Document: [id number] documented in this encounter Plan of Treatment [...] ient. Please call with any questions at [phone]. Electronically signed on 03/08/2008 14: 42 by ISABELLA MACIEL MA,CCC-SALES AND MARKETING VICE PRESIDENT MT: roberta Name: SHASHANK HASTINGS MRN: -[id number] Account: [id number] : 1960 Visit Date: 02/17/2008 Sex: M Age: 47 Document: [id number] Isabella Maciel SALES AND MARKETING VICE PRESIDENT REFERRAL documented in this encounter Visit Diagnoses Not on filedocumented in this encounter
--- OUTSIDE RECORDS SUMMARY | 2022-10-19 07:44 | XMS_ITS | Encounter Summary ---
:1960 Author Organization [place] Address [address] [place] [address]. [place] [address] Care Team Providers Name Role Phone Unavailable Primary Care Provider Unavailable Encounter Details Date Type Department Care Team Description 03/14/2008 Historic Results INTERFACED REPORT Graham Walsh MD [facility] [address] [place] [address] (Wo rk) Social History Tobacco [...] LAB - BLOOD ORDERABLES Performing Organization Address City/State/[facility] Phon e Number MISYS Creatinine (03/14/2008 12:30 [...] LAB - BLOOD ORDERABLES Performing Organization Address [facility] Phon e Number MISYS Urea nitrogen (03/14/2008 12:30 PM CDT) athologist Signature Urea Nitrogen 15 5 - 24 MISYS mg/dL Specimen Anatomical Collection Method Collection Time Receive d Time (Source) Location / / Volume Laterality 03/14/2008 12:30 03/14/2008 PM CDT 12:34 PM CDT Royce Walsh MD LAB - BLOOD ORDERABLES Performing Organization Address [facility] Phon e Number MISYS Glucose (03/14/2008 12:30 PM CDT) athologist Signature Glucose 81 60 - 99 MISYS mg/dL Specimen Anatomical Collection Method Collection Time Receive d Time (Source) Location / / Volume Laterality 03/14/2008 12:30 03/14/2008 PM CDT 12:34 PM CDT Royce Walsh MD LAB - BLOOD ORDERABLES Performing Organization Address [facility] Phon e Number MISYS INR AND PTT [...]
--- OUTSIDE RECORDS SUMMARY | 2022-10-19 07:44 | XMS_ITS | Encounter Summary ---
:1960 Author Organization [place] Address [address] [place] [address]. [place] [address] Care Team Providers Name Role Phone Unavailable Primary Care Provider Unavailable Encounter Details Date Type Department Care Team Description 05/12/2008 Results [facility] irena, Shashank Linares MD [facility] Results [facility] [address] [facility] [address] [place], [place] [id number] (Wo rk) Social History Tobacco Use Types Packs/Day Years Used Date Smoking Tobacco: Never Assessed Sex Assigned at Date Recorded Not on file documented as of this encounter Plan of Treatment Not on filedocumented as of this encounter Procedures Procedure Name Priority Date/Time Associated Diagnosis Comme [facility] MRI BRAIN W/O Routine 05/12/2008 9:06 AM [...]
--- OUTSIDE RECORDS SUMMARY | 2022-10-19 07:44 | XMS_ITS | Encounter Summary ---
:1960 Author Organization [place] Address [address] [place] [address]. [place] [address] Care Team Providers Name Role Phone Kameron German MD Primary Care Provider Reason for Visit Reason Comments Mass behind left ear Auth/Cert Specialty Diagnoses / Procedures Referred By Contact Refer red To Contact Radiology. Ultrasound [address] [place], [place] [address] Phone: Fax: Referral ID Status Reason Start Date Expiration Date Visits Requ ested Visits Authorized [id number] 1 1 Encounter Details Date Type Department Care Team Description 04/15/2015 [facility] Sree Meyer MD Cervical lymphadenitis [facility] Emergency [facility] [place] [address] [place] [facility] 100 [address] [place] [address] [phone] (Wo rk) Social History Tobacco Use Types [...] more than 2 days of treatment ?? 5022-6479 [facility]. [address] [place] [address], [place] [address]. All rights reserved. This information is not [...] teric documented in this encounter Care Teams Rod Straightener Relationship Specialty Start Date End Date Kameron German MD PCP - General Family Practice 10/21/11 12/21/16 [facility] [address] [place] [address] documented as of this encounter
--- OUTSIDE RECORDS SUMMARY | 2022-10-19 07:44 | XMS_ITS | Encounter Summary ---
:1960 Author Organization [address] [place] [address] Care Team Providers Name Role Phone Unavailable Primary Care Provider Unavailable Encounter Details Date Type Department Care Team Description 03/21/2008 Consultation [facility] Isabella Maciel, RUG INSPECTOR HELPER Hospital Results [address] [address] (Wo rk) Social History Tobacco Use Types Packs/Day Years Used Date Smoking Tobacco: Never Assessed Sex Assigned at Date Recorded Not on file documented as of this encounter Procedure Notes Isabella Maciel, RUG INSPECTOR HELPER - 04/08/2008 9:12 AM CDTAssociated Order(s): CONSULT [...] future. Please call with any questions at [phone]. Electronically signed on 04/10/2008 08:12 by ISABELLA MACIEL MA,CCC-RUG INSPECTOR HELPER MT: roberta Name: SHASHANK HASTINGS Account: [id number] : 1960 Visit Date: 03/21/2008 Sex: M Age: 47 Document: [id number] cc: Patient documented in this encounter Plan [...] future. Please call with any questions at [phone]. Electronically signed on 04/10/2008 08: 12 by ISABELLA MACIEL MA,CCC-RUG INSPECTOR HELPER MT: roberta Name: SHASHANK HASTINGS MRN: -[id number] Account: [id number] : 1960 Visit Date: 03/21/2008 Sex: M Age: 47 Document: [id number] cc: Patient Isabella Maciel RUG INSPECTOR HELPER REFERRAL documented in this encounter Visit Diagnoses Not on filedocumented in this encounter
--- OUTSIDE RECORDS SUMMARY | 2022-10-19 07:44 | XMS_ITS | Encounter Summary ---
:1960 Author Organization [place] Address [facility]ly [facility]0 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 He lives in [place]. PHYSICAL EXAMINATION: VITAL SIGNS: Temperature 95.6, pulse [...] MD MT: JOSESITO#[id number] Name: SHASHANK HASTINGS Account: [id number] : 1960 Visit Date: 01/25/2008 Document: [id number] cc: [facility] RVISOR STEEL DIVISION documented in this encounter Plan of Treatment Not on filedocumented as of this encounter Visit Diagnoses Not on filedocumented in this encounter
--- OUTSIDE RECORDS SUMMARY | 2022-10-19 07:44 | XMS_ITS | Encounter Summary ---
:1960 Author Organization [place] Address [address] [place] [address]. [place] [address] Care Team Providers Name Role Phone Unavailable Primary Care Provider Unavailable Encounter Details Date Type Department Care Team Description 03/14/2008 Results Only [facility] Royce Walsh MD Hospital Results EMERGENCY PHYSI ZANDER HUNTER [address] [facility] [address] [place], [place] [address] (Wo rk) Social History Tobacco Use Types [...]
--- OUTSIDE RECORDS SUMMARY | 2022-10-19 07:44 | XMS_ITS | Encounter Summary ---
:1960 Author Organization [place] Address [facility] [place] [address] Care Team Providers Name Role Phone Unavailable Primary Care Provider Unavailable Encounter Details Date Type Department Care Team Description 06/16/2009 Emergency room [facility], Hospital Results MD EMERGENCY PHYSIC HEENA HUNTER [address] [facility] 650 [place], [place] [address] (Wo rk) Social History Tobacco Use Types [...] HISTORY: He is . He works in [employer] for [employer] [facility]. PHYSICAL EXAMINATION: VITAL [...] EM#[id number] Name: SHASHANK HASTINGS MRN: -[id number] Account: [id number] : 1960 Visit Date: 06/16/2009 Document: [id number] cc: Kameron German MD documented in this encounter Plan of Treatment Not on filedocumented as of this encounter Visit Diagnoses Not on filedocumented in this encounter
--- OUTSIDE RECORDS SUMMARY | 2022-10-19 07:44 | XMS_ITS | Encounter Summary ---
:1960 Author Organization [place] Address [address] [place] [address]. [place] [address] Care Team Providers Name Role Phone Unavailable Primary Care Provider Unavailable Encounter Details Date Type Department Care Team Description 03/14/2008 Emergency room [facility] Briseyda Walsh, Hospital Results MD EMERGENCY PHYSIC HEENA HUNTER [address] [facility] [address] [place], [place] [address] (Wo rk) Social History Tobacco Use Types [...] symmetric and equal. I do not really cotton picker any weakness on the left side at [...] MD MT: JOSESITO#[id number] Name: SHASHANK HASTINGS Account: [id number] : 1960 Visit Date: 03/14/2008 Document: [id number] cc: Kameron Boyd MD documented in this encounter Plan of Treatment Not on filedocumented as of this encounter Visit Diagnoses Not on filedocumented in this encounter
--- OUTSIDE RECORDS SUMMARY | 2022-10-19 07:44 | XMS_ITS | Encounter Summary ---
:1960 Author Organization [place] Address [address] [place] [address]. [place] [address] Care Team Providers Name Role Phone Kameron German MD Primary Care Provider Encounter Details Date Type Department Care Team Description 02/15/2008 Historic Dobie Man [facility], [address] [place], [place] [address] [facility] [address] [place], [place] [id number] Social History Tobacco Use Types Packs/Day Years Used Date Smoking Tobacco: Never Assessed Sex Assigned at Date Recorded Not on file documented as of this encounter Progress Notes Interface, Dobie Man - 10/26/2011 3:16 PM CRIB ATTENDANT FINAL OCCUPATIONAL THERAPY PROGRESS NOTE Shashank Hastings [...] 02/07/2007 patient was invited to speak at [facility] at an educational forum for first responders including 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 Patient returned to work on [...] was grossly 4/5. Fine motor coordination and form setter strength appeared intact. Patient's blood pressure was [...] Therapy. Please call with any questions at [phone]. Electronically signed on 02/20/2008 14:36 by MATTHIAS CUELLO MT: roberta Name: SHASHANK HASTINGS Account: [id number] : 1960 Visit Date: 02/15/2008 Sex: M Age: 47 Document: [id number] ATTENDANT documented in this encounter Plan of Treatment Not on filedocumented as of this encounter Visit Diagnoses Not on filedocumented in this encounter Care Teams Educational Administration Teacher Relationship Specialty Start Date End Date Kameron German MD PCP - General Family Practice 10/21/11 12/21/[address] [address] documented as of this encounter
--- OUTSIDE RECORDS SUMMARY | 2022-10-19 07:44 | XMS_ITS | Encounter Summary ---
:1960 Author Organization [place] Address [address] [facility] [place] [address] Care Team Providers Name Role Phone Kameron German MD Primary Care Provider Encounter Details Date Type Department Care Team Description 11/23/2010 Historic Results [facility] Heart Unknown, [address] [place] [address] Social History Tobacco Use Types Packs/Day Years Used Date Smoking Tobacco: Never Assessed Sex Assigned at Date Recorded Not on file documented as of this encounter Plan of Treatment Not on filedocumented as of this encounter Procedures Procedure Name Priority Date/Time Associated Diagnosis Comme nts NUCLEAR CARDIAC - HIM 11/23/2010 12:00 AM PERSONNEL TRAINING OFFICER SCAN - ARCHIVE documented in this encounter Results NUCLEAR CARDIAC - HIM SCAN - ARCHIVE (11/23/2010 12:00 AM PERSONNEL TRAINING OFFICER) Anatomical Region Laterality Modality Other Specimen (Source) Anatomical Location Collection Method / Collectio n Time Received Time / Laterality Volume 11/23/2010 Narrative This result has an attachment that is no t available. Provider Scan IMG NM ORDERABLES documented in this encounter Visit Diagnoses Not on filedocumented in this encounter Care Teams Printing Plate Setter Relationship Specialty Start Date End Date Kameron German MD PCP - General Family Practice 10/21/11 12/21/[address] [phone] documented as of this encounter
--- OUTSIDE RECORDS SUMMARY | 2022-10-19 07:44 | XMS_ITS | Encounter Summary ---
:1960 Author Organization [place] Address [facility]0 [facility] [place] [address] Care Team Providers Name Role Phone Carmita German MD Primary Care Provider Lucero Fraire MD Primary Care Provider Encounter Details Date Type Department Care Team Description 11/06/2010 Office Visit-[facility] [place] Cameron MD [address] [facility] [address] [facility] [address] [place] [address] [place] [address] (Wo rk) Social History Tobacco Use Types Packs/Day Years Used Date Smoking Tobacco: Never Assessed Sex Assigned at Date Recorded Not on file documented as of this encounter Progress Notes Timothy Mcgraw MD - 11/25/2010 4:47 PM CST Progress Note Created by: Timothy Mcgraw M.D. [id number] DATE: 11/06/2010 SHASHANK HASTINGS DATE OF : 1960 AGE: [age] years old Referring Physician: CARMITA GERMAN Referring Clinic: [facility] CURRENT DIAGNOSES 1. - Abnormal EKG, 794.31 ALLERGIES NKDA MEDICATIONS (prior to changes made today) 1. Aspirin 81 mg Tablet, 1 p.o. daily 2. Simvastatin 80 mg Tablet, 1 p.o. daily 3. Nexium 40 mg Capsule, Delayed Release(E.C.), 1 p.o. daily 4. Lunesta 2 mg Tablet, 1 p.o. PRN as Directed 5. Nasonex 50 mcg/Actuation Golden, Non-Aerosol, 1 p.o. PRN as Directed 6. [...] loss of sensation. He received thrombolysis at [facility]. I do not have complete records although [...] exercises regularly and gym member; Occupation - [employer]; Residence - lives in [place] year round; Place of - [place]; REVIEW OF SYSTEMS GENERAL feels well, no [...] PRN as Directed, #0 Nasonex 50 mcg/Actuation Golden, Non-Aerosol, 1 p.o. PRN as Directed, #0 [...] on filedocumented in this encounter Care Teams Spinning Frame Tender Relationship Specialty Start Date End Date Carmita German MD PCP - General Family Practice 10/21/11 12/21/[address] [phone] Lucero Fraire MD PCP - General 10/20/17 [facility] [address] [place], [place] [id number] documented as of this encounter
--- OUTSIDE RECORDS SUMMARY | 2022-10-19 07:44 | XMS_ITS | Encounter Summary ---
:1960 Author Organization [place] Address [address] [place] [address]. [place] [address] Care Team Providers Name Role Phone Unavailable Primary Care Provider Unavailable Encounter Details Date Type Department Care Team Description 03/26/2008 Consultation [facility] Deepali Murcia, [facility] Results [address] [place], [place] [address] (Wo rk) Social History [...] you have questions, please call me at [phone]. Electronically signed on 04/25/2008 17:17 by DEEPALI MURCIA OTR/Althea MT: roberta Name: SHASHANK HASTINGS MRN: -[id number] Account: [id number] : 1960 Visit Date: 03/26/2008 Sex: M Age: 47 Document: [id number] cc: Shashank Anne MD documented in this [...] Shashank Hastings has been seen in [facility] Therapy 19 times since the initial evaluation [...] you have questions, please call me at [phone]. Electronically signed on 04/25/2008 17: 17 by MAK SEARS/Althea MT: roberta Name: SHASHANK HASTINGS Account: [id number] : 1960 Visit Date: 03/26/2008 Sex: M Age: 47 Document: [id number] cc: Shashank Anne MD Deepali Murcia OTR REFERRAL documented in this encounter Visit Diagnoses Not on filedocumented in this encounter
--- OUTSIDE RECORDS SUMMARY | 2022-10-19 07:44 | XMS_ITS | Encounter Summary ---
:1960 Author Organization [place] Address [address] [facility] [place] [address] Care Team Providers Name Role Phone Kameron German MD Primary Care Provider Encounter Details Date Type Department Care Team Description 01/23/2008 [facility], [facility] Darshana Prajapati, Director Business Intelligence Rehabilitation PT Services [facility] REHAB SER VICE [place] [address] [facility] [place] [address] [phone] Social History Tobacco Use Types Packs/Day Years Used Date Smoking Tobacco: Never Assessed Sex Assigned at Date Recorded Not on file documented as of this encounter Progress Notes Darshana Prajapati, PT - 10/26/2011 3:29 PM CHIEF CLINICAL DIETITIAN FINAL PHYSICAL THERAPY DISCHARGE NOTE Patient Self [...] 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 It is felt that he is doing [...] have any questions, please call me at [phone]. Electronically signed on 02/02/2008 13:23 by DARSHANA PRAJAPATI PT MT: roberta Name: SHASHANK HASTINGS MRN: -[id number] Account: [id number] : 1960 Visit Date: 01/23/2008 Sex: M Age: 47 Document: [id number] CLINICAL DIETITIAN documented in this encounter Plan of Treatment Not on filedocumented as of this encounter Visit Diagnoses Not on filedocumented in this encounter Care Teams Grievance And Appeals Specialist Relationship Specialty Start Date End Date Kameron German MD PCP - General Family Practice 10/21/11 12/21/16 [facility] [place] [phone] documented as of this encounter
--- OUTSIDE RECORDS SUMMARY | 2022-10-19 07:44 | XMS_ITS | Encounter Summary ---
:1960 Author Organization [place] Address [address] [place] [address] Care Team Providers Name Role Phone Unavailable Primary Care Provider Unavailable Encounter Details Date Type Department Care Team Description 01/29/2008 Office Visit-[facility] Gabriel Brown MD [address] [place], [place] [address] [place], [place] [address] (Wo rk) Social History Tobacco Use Types Packs/Day Years Used Date Smoking Tobacco: Never Assessed Sex Assigned at Date Recorded Not on file documented as of this encounter Progress Notes Gabriel Brown - 01/29/2008 5:35 PM CDT Elevator Constructor: Gabriel Brown Status: Final - Signature Encounter: 29 Jan 2008 Type: PM and R Letter Physical Medicine and Rehabilitation [facility] Mail [address] [place] [address] Office: [phone] Physical Medicine and Rehabilitation Clinic [facility] First Floor, Clinic [address] [place] [address] January 29, 2008 Shashank Hastings [address] [place] [address] RE: Shashank Hastings : 1960 [place]: 01/29/2008 Dear Mr. Hastings: I have received the results from your recent driving evaluation through [employer]. I concur with their results and I have no reservations to you resuming driving without restrictions at this time. If you have any additional specific documentation needs to the DMV or otherwise, please let me know. Sincerely, Gabriel Brown M.D. Area Captain Department of Physical Medicine & Rehabilitation [facility] SCC:marie Electronically signed by:GABRIEL BROWN M.D. Feb 05 2008 1:15PM BANK OFFICER documented in this encounter Plan of Treatment Not on filedocumented as of this encounter Visit Diagnoses Not on filedocumented in this encounter
--- OUTSIDE RECORDS SUMMARY | 2022-10-19 07:44 | XMS_ITS | Encounter Summary ---
:1960 Author Organization [place] Address [address] [place] [address]. [place] [address] Care Team Providers Name Role Phone Unavailable Primary Care Provider Unavailable Encounter Details Date Type Department Care Team Description 03/14/2008 Consultation [facility] Deepali Cuevas, [facility] Results [address] [place], [place] [address] (Wo rk) Social History [...] and IADLs in the patient's home a [facility] environments. Continue to recommend patient follow [...] Occupational Therapy. Please call with anyquestions at [phone]. Electronically signed on 04/23/2008 15:35 by MATTHIAS SEARS MT: JOSESITO#[id number] Name: SHASHANK HASTINGS Account: [id number] : 1960 Visit Date: 03/14/2008 Sex: M Age: 47 Document: [id number] cc: Shashank Anne MD documented in this [...] NOTE Shashank Alexurvashi [facility] since last progress note [...] Therapy. Please call with any questions at [phone]. Electronically signed on 04/23/2008 15: 35 by MATTHIAS SEARS MT: [id number] Name: SHASHANK HASTINGS Account: [id number] : 1960 Visit Date: 03/14/2008 Sex: M Age: 47 Document: [id number] cc: Shashank Anne MD Deepali Cuevas OTR REFERRAL documented in this encounter Visit Diagnoses Not on filedocumented in this encounter
--- OUTSIDE RECORDS SUMMARY | 2022-10-19 07:44 | XMS_ITS | Encounter Summary ---
:1960 Author Organization [place] Address [address] [place] [address]. [place] [address] Care Team Providers Name Role Phone Unavailable Primary Care Provider Unavailable Encounter Details Date Type Department Care Team Description 11/23/2010 Results Only [facility] Results MD Nisha [address] [facility] [address] [place], [place] [address] (Wo rk) Social History Tobacco Use Types Packs/Day Years Used Date Smoking Tobacco: Never Assessed Sex Assigned at Date Recorded Not on file documented as of this encounter Plan of Treatment Not on filedocumented as of this encounter Procedures Procedure Name Priority Date/Time Associated Diagnosis Comme nts EXERCISE STRESS Routine 11/23/2010 3:51 PM Result s for this TEST CSR TECHNICIAN procedure are i n the results section. documented in this encounter Results Stress test, tracing only (11/23/2010 3:51 PM CSR TECHNICIAN) Component Value Ref Test Analysis Performed At [facility] Method Time Signature IMAGECAST RADIOLOGY RESULT [...] / / Volume Laterality 11/23/2010 3:51 PM CSR TECHNICIAN Timothy Mcgraw MD [facility] Performing Organization Address City/State/ZIP Code Phon e Number RADIOLOGY RESULTS documented in this encounter Visit Diagnoses Not on filedocumented in this encounter
--- OUTSIDE RECORDS SUMMARY | 2022-10-19 07:44 | XMS_ITS | Encounter Summary ---
:1960 Author Organization [place] Address [address] [place] [address]. [place] [address] Care Team Providers Name Role Phone Unavailable Primary Care Provider Unavailable Encounter Details Date Type Department Care Team Description 01/25/2008 Results Only [facility] Omega Poe MD Hospital Results EMERGENCY PHYSI ZANDER PA [address] [facility] [address] [place], [place] [address] (Wo rk) Social History Tobacco Use Types Packs/Day Years Used Date Smoking Tobacco: Never Assessed Sex Assigned at Date Recorded Not on file documented as of this encounter Plan of Treatment Not on filedocumented as of this encounter Procedures Procedure Name Priority Date/Time Associated Diagnosis Comme nts HC CT HEAD WO Routine 01/25/2008 2:06 PM Results for this CONTRAST DENTURE CONTOUR WIRE SPECIALIST procedure are i n the results section. documented in this encounter Results CT SCAN HEAD/BRAIN (01/25/2008 2:06 PM DENTURE CONTOUR WIRE SPECIALIST) Anatomical Region Laterality Modality Other Specimen (Source) Anatomical Collection Method Collection Time Re ceived Time Location / / Volume Laterality 01/25/2008 2:06 PM DENTURE CONTOUR WIRE SPECIALIST Impressions 01/25/2008 2:13 PM DENTURE CONTOUR WIRE SPECIALIST CT HEAD W/O CONTRAST* ?? Jan [...]
--- OUTSIDE RECORDS SUMMARY | 2022-10-19 07:44 | XMS_ITS | Encounter Summary ---
:1960 Author Organization [place] Address [facility]0 [place] [address] Care Team Providers Name Role Phone Unavailable Primary Care Provider Unavailable Encounter Details Date Type Department Care Team Description 06/16/2009 Historic Results INTERFACED REPORT Dr Francia, [address] [facility] [address] [facility] [address] [place] [address] (Wo rk) Social History Tobacco [...] UA with microscopic (06/16/2009 5:05 AM CDT) [facility] Method Time Signature Source Midstream MISYS Urine Color Urine Light Yellow MISYS Appearance Urine Slightly MISYS Cloudy Glucose Urine Negative NEG mg/dL MISYS Bilirubin Urine Negative NEG MISYS Ketones Urine Negative NEG mg/dL MISYS Specific Casa 1.003 1.003 - MISYS Urine 1.035 Blood [...] MISYS Urine culture (06/16/2009 5:05 AM CDT) [facility] Method Time Signature Specimen Midstream MISYS [...]
--- OUTSIDE RECORDS SUMMARY | 2022-10-19 07:44 | XMS_ITS | Encounter Summary ---
:1960 Author Organization [place] Address [address] [place] [address]. [place] [address] Care Team Providers Name Role Phone Kameron German MD Primary Care Provider Reason for Visit Reason Comments Numbness left arm and leg note some c onfusion x 1345 today Encounter Details Date Type Department Care Team Description 10/21/[address] [facility] Royce Walsh N umbness and tingling in left hand; [facility] Emergency Dep t MD MADRID, tram, alterations of sensations [address] [facility] [id number] [address] [facility] [phone] [place] [phone] (Wo rk) Social History Tobacco Use Types Packs/Day Years Used Date Smoking Tobacco: Never Assessed Sex Assigned at Date Recorded Not on file documented as of this encounter Last Filed Vital Signs Vital Sign Reading Time Taken Comments Blood Pressure 119/83 10/21/2011 8:15 PM [facility] Pulse 73 10/21/2011 8:15 PM [facility] Temperature 37.1 ??C (98.8 ??F) 10/21/2011 3:54 PM [facility] Respiratory Rate 18 10/21/2011 8:15 PM [facility] Oxygen Saturation 99% 10/21/2011 8:15 PM [facility] Inhaled Oxygen Concentration - - Weight 88.5 kg (195 lb) 10/21/2011 3:54 PM [facility] Height 172.7 cm (5' 8) 10/21/2011 3:54 PM [facility] Body Mass Index 29.65 10/21/2011 3:54 PM [facility] documented in this encounter Discharge Instructions Discharge InstructionsRoyce Walsh MD - 10/21/2011 8:16 PM CST ADULT ASA DAILY H HAND documented in this encounter ED Notes Royce [...] alert. Cranial nerves 2-12 grossly intact. Good rod filler. Skin: Skin is warm and dry. Psychiatric: He has a normal mood and affect. Emergency Department Course ECG: Indication: Eval for ischemia/infarct Findings: Normal sinus rhythm, ventricular rate 73 bpm. DE Interval: 182 ms QRS Duration: 96 ms [...] w/o Contrast: Negative MR angiography of the [place]. Reading per Radiology. MRA Neck [...] I did discuss with the neurologist from [facility] and they suggested to do an MRI/MRAand they are negative with nothing new. The carotids and basilar arteries are open. Per this discussion I will be giving him one adult Aspirin now and he should take one daily. He should see his neurologist in the coming week or two for follow up. He does have an appointment at [facility] on the . Condition at this time is stable. Diagnosis: 1. 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 Royce Walsh based on my observations and the provider's statements to me. Royce Walsh MD 10/21/112020 H HAND Doreen Mishra - 10/21/2011 4:08 PM CST Labs drawn with IV insertion and held H HAND documented in this encounter Miscellaneous Notes Initial Assessments - Karlos Provider - 03/30/2012 3:33 PM CDT documented in this encounter Plan of Treatment Not on filedocumented as of this encounter Procedures Procedure Name Priority Date/Time Associated Comments Diagnosis MR BRAIN W/O & W STAT 10/21/2011 7:52 PM Resul ts for this CONTRAST [facility] procedure are i n the results section. MRA NECK (CAROTIDS) STAT 10/21/2011 7:52 PM Re sults for this W/O & W CONTRAST [facility] procedure a re in the results section. MRA BRAIN ([place] OF STAT 10/21/2011 7:42 PM R esults for this [place]) W/O CONTRAST [facility] procedu re are in the results section. CT HEAD W/O CONTRAST STAT 10/21/2011 5:09 PM R esults for this [facility] procedure are i n the results section. CBC WITH PLATELETS & STAT 10/21/2011 4:15 PM R esults for this DIFFERENTIAL [facility] procedure are i n the results section. INR STAT 10/21/2011 4:15 PM Results f or this [facility] procedure are i n the results section. BASIC METABOLIC PANEL STAT 10/21/2011 4:15 PM Results for this [facility] procedure are i n the results section. HIM ECG SCAN STAT 10/21/2011 documented in this encounter Results Neck MRA w & w/o contrast - STROKE PROTOCOL (10/21/2011 7:52 PM [facility]) Anatomical Region Laterality Modality Neck, SUBRAD MR NEURO, P MR NEURO Othe r Specimen (Source) Anatomical Collection Method Collection Time Re ceived Time Location / / Volume Laterality 10/21/2011 7:52 PM [facility] Impressions 10/22/2011 10:15 AM [facility] MRA CAROTIDS ??Oct 21, 2011 7:52:00 PM [...] contrast - STROKE PROTOCOL (10/21/2011 7:52 PM [facility]) Anatomical Region Laterality Modality Head, SUBRAD MR NEURO, [facility] MR NEURO Othe r Specimen (Source) Anatomical Collection Method Collection Time Re ceived Time Location / / Volume Laterality 10/21/2011 7:52 PM [facility] Impressions 10/22/2011 10:15 AM [facility] MRI BRAIN WITH AND WITHOUT CONTRAST ??De [...] any focal mass lesions. Royce Walsh MD [facility] MRI ORDERABLES Head MRA w/o contrast - STROKE PROTOCOL (10/21/2011 7:42 PM [facility]) Anatomical Region Laterality Modality Head, SUBRAD MR NEURO, [facility] MR NEURO Othe r Specimen (Source) Anatomical Collection Method Collection Time Re ceived Time Location / / Volume Laterality 10/21/2011 7:42 PM [facility] Impressions 10/21/2011 7:47 PM [facility] MRA HEAD W/O CONTRAST* Oct 21, 2011 7:42: 00 PM HISTORY: Left hand numbness. TECHNIQUE: 3D [id number] MR angiogra phy was performed through the [place]. FINDINGS: The distal internal carotid ar teries, basilar artery, and proximal anterior, middle, and posterior cerebral arteries are patent. There is no evidence for any large vesse l occlusion or stenosis. There is no evidence for a saccular aneurysm. IMPRESSION: Negative MR angiography of t he [place]. Royce Walsh MD [facility] MRI ORDERABLES Head CT w/o contrast* (10/21/2011 5:09 PM [facility]) Anatomical Region Laterality Modality Head, SUBRAD CT NEURO, SUBRAD CT NEURO, P CT NEURO Computed Tomography Specimen (Source) Anatomical Collection Method Collection Time Re ceived Time Location / / Volume Laterality 10/21/2011 5:09 PM [facility] Impressions 10/22/2011 11:[address] HEAD WITHOUT CONTRAST ?? Oct 21, [...] ORDERABLES Basic metabolic panel (10/21/2011 4:15 PM [facility]) athologist Signature Sodium 142 133 - 144 [place] mmol/L [facility] Potassium 3.9 3.4 - 5.3 [place] mmol/L [facility] Chloride 103 94 - 109 [place] mmol/L [facility] Carbon Dioxide 31 20 - 32 [place] mmol/L [facility] Anion Gap 7 6 - 17 [place] mmol/L [facility] Glucose 83 60 - 99 [place] mg/dL [facility] Urea Nitrogen 24 7 - 30 [place] mg/dL [facility] Creatinine 0.88 0.66 - [facility] 1.25 mg/dL [facility] GFR Estimate >90 >60 [place] mL/min/1.[address] LAB GFR Estimate If >90 >60 [place] Black mL/min/1.7 [facility] m2 [facility] Calcium 8.6 8.5 - 10.4 [place] mg/dL [facility] Specimen Anatomical Collection Method Collection Time Receive d Time (Source) Location / / Volume Laterality Blood specimen 10/21/2011 4:15 PM 011 4:36 (specimen) [facility] PM [facility] Royce Walsh MD LAB - BLOOD ORDERABLES Performing Organization Address City/State/ZIP Code Phon e Number M [facility] [address], [place] [address] [facility] INR (10/21/2011 4:15 PM [facility]) athologist Signature INR 0.99 0.86 - 1.14 [facility] Specimen Anatomical Collection Method Collection Time Receive d Time (Source) Location / / Volume Laterality Blood specimen 10/21/2011 4:15 PM 011 4:36 (specimen) [facility] PM [facility] Royce Walsh MD LAB - BLOOD ORDERABLES Performing Organization Address City/State/ZIP Code Phon e Number M [facility] [address] [place] [address] [facility] (ABNORMAL) CBC with platelets differential (10/21/2011 4:15 PM [facility]) [facility] Method Time Signature WBC 12.5 (H) 4.0 - [place] 11.0 [facility] 10e9/L [facility] RBC Count 4.93 4.4 - 5.9 [place] 10e12/L [facility] Hemoglobin 14.5 13.3 - [place] 17.7 g/dL [facility] Hematocrit 42.9 40.0 - [place] 53.0 % [facility] MCV 87 78 - 100 [place] fl [facility] MCH 29.4 26.5 - [place] 33.0 pg [facility] MCHC 33.8 31.5 - [place] 36.5 g/dL [facility] RDW 13.6 10.0 - [place] 15.0 % [facility] Platelet Count 344 150 - 450 [place] 10e9/L [facility] Diff Method Automated [facility] % Neutrophils 37.7 (L) 40 - 75 % [facility] % Lymphocytes 46.4 20 - 48 % [facility] % Monocytes 10.4 0 - 12 % [facility] % Eosinophils 4.5 0 - 6 % [facility] % Basophils 0.7 0 - 2 % [facility] % Immature 0.3 0 - 0.4 % [place] Granulocytes [facility] Absolute 4.7 1.6 - 8.3 [place] Neutrophil 10e9/L [facility] Absolute 5.8 (H) 0.8 - 5.3 [place] Lymphocytes 10e9/L [facility] Absolute 1.3 0.0 - 1.3 [place] Monocytes 10e9/L [facility] Absolute 0.6 0.0 - 0.7 [place] Eosinophils 10e9/L [facility] Absolute 0.1 0.0 - 0.2 [place] Basophils 10e9/L [facility] Abs Immature 0.0 0 - 0.03 [place] Granulocytes 10e9/L [facility] Reactive Lymphs Present [facility] Specimen Anatomical Collection Method Collection Time Receive d Time (Source) Location / / Volume Laterality Blood specimen 10/21/2011 4:15 PM 011 4:36 (specimen) [facility] PM [facility] Royce Walsh MD LAB - BLOOD ORDERABLES Performing Organization Address City/State/ZIP Code Phon e Number M [facility] [address], [place] [address] [facility] ECG - HIM ECG Scan [...] tablet 325 mg Given 10/21/2011 8:19 PM [facility] 325 mg 325 mg, Oral, ONCE, On Stefanie 10/21/11 at 2014, For 1 dose gadobutrol (GADAVIST) 1 mmol/mL injection 10 Given 11/2010 7:00 PM [facility] 10 mmol mmol 10 mmol (10 mL), Intravenous, ONCE, On Stefanie 10/21/11 at 1900, For 1 dose sodium chloride 0.9 % flush 60 mL Given 10/21/2011 7:00 PM [facility] 60 mLs 60 mL, Intravenous, ONCE, On Stefanie 10/21/11 at 1900, For 1 dose documented in this encounter Active and Recently Administered Medications Times are shown in [facility]. Scheduled Medication Order 10/19/2011 10/20/2011 10/21/2011 aspirin [...] dose documented in this encounter Care Teams Trim Carpenter Relationship Specialty Start Date End Date Kameron German MD PCP - General Family Practice 10/21/11 12/21/[address] [phone] documented as of this encounter
--- OUTSIDE RECORDS SUMMARY | 2022-10-19 07:44 | XMS_ITS | Encounter Summary ---
:1960 Author Organization [place] Address [address] [place] [address]. [place] [address] Care Team Providers Name Role Phone Unavailable Primary Care Provider Unavailable Encounter Details Date Type Department Care Team Description [facility]/21[facility]2009 [facility] Results [address] [address] (Wo rk) Social History Tobacco [...]
--- OUTSIDE RECORDS SUMMARY | 2022-10-19 07:44 | XMS_ITS | Encounter Summary ---
:1960 Author Organization [place] Address [facility] [place] [address] Care Team Providers Name Role Phone Kameron German MD Primary Care Provider Reason for Visit Reason Comments Loss of Consciousness syncopal in BR, found by dieter mejia, pain in neck Encounter Details Date Type Department Care Team Description 04/05/2012 Emergency [facility] Trigger, Rowdy Syncop e; [facility] Emergency MD Shashank Closed head injury Dept [facility] [address] [place] [address] [address] [place] [address] (Wo rk) Social History Tobacco [...] ES <0.012 0.000 - [place] 0.034 ug/L [facility] Specimen Anatomical Collection Method Collection Time Receive d Time (Source) Location / / Volume Laterality Blood specimen 04/05/2012 5:30 AM 012 5:45 (specimen) CDT AM CDT Rowdy Andersen MD LAB - BLOOD ORDERABLES Performing Organization Address City/State/ZIP Code Phon e Number M [facility] [address] [place] [address] [phone] [facility] (ABNORMAL) Basic metabolic panel (04/05/2012 5:30 AM CDT) athologist Signature Sodium 144 133 - 144 [place] mmol/L [facility] Potassium 4.1 3.4 - 5.3 [place] mmol/L [facility] Chloride 108 94 - 109 [place] mmol/L [facility] Carbon Dioxide 28 20 - 32 [place] mmol/L [facility] Anion Gap 7 6 - 17 [place] mmol/L [facility] Glucose 100 (H) 60 - 99 [place] mg/dL [facility] Urea Nitrogen 21 7 - 30 [place] mg/dL [facility] Creatinine 0.96 0.66 - [place] 1.25 mg/dL [facility] GFR Estimate 82 >60 [place] mL/min/1.[address] LAB GFR Estimate If >90 >60 [place] Black mL/min/1.[address] LAB Calcium 8.6 8.5 - 10.4 [place] mg/dL [facility] Specimen Anatomical Collection Method Collection Time Receive d Time (Source) Location / / Volume Laterality Blood specimen 04/05/2012 5:30 AM 012 5:45 (specimen) CDT AM CDT Rowdy Andersen MD LAB - BLOOD ORDERABLES Performing Organization Address City/State/ZIP Code Phon e Number [facility] [address], [place] [address] [phone] [facility] (ABNORMAL) CBC with platelets differential (04/05/2012 5:30 AM CDT) [facility] Method Time Signature WBC 12.1 (H) 4.0 - [place] 11.0 [facility] 10e9/L [facility] RBC Count 5.16 4.4 - 5.9 [place] 10e12/L [facility] Hemoglobin 15.3 13.3 - [place] 17.7 g/dL [facility] Hematocrit 44.7 40.0 - [place] 53.0 % [facility] MCV 87 78 - 100 [place] fl [facility] MCH 29.7 26.5 - [place] 33.0 pg [facility] MCHC 34.2 31.5 - [place] 36.5 g/dL [facility] RDW 14.0 10.0 - [place] 15.0 % [facility] Platelet Count 333 150 - 450 [place] 10e9/L [facility] Diff Method Automated [facility] % Neutrophils 34.4 (L) 40 - 75 % [facility] % Lymphocytes 43.1 20 - 48 % [facility] % Monocytes 12.8 (H) 0 - 12 % [facility] % Eosinophils 8.7 (H) 0 - 6 % [facility] % Basophils 0.7 0 - 2 % [facility] % Immature 0.3 0 - 0.4 % [place] Granulocytes [facility] Absolute 4.2 1.6 - 8.3 [place] Neutrophil 10e9/L [facility] Absolute 5.2 0.8 - 5.3 [place] Lymphocytes 10e9/L [facility] Absolute 1.6 (H) 0.0 - 1.3 [place] Monocytes 10e9/L [facility] Absolute 1.1 (H) 0.0 - 0.7 [place] Eosinophils 10e9/L [facility] Absolute 0.1 0.0 - 0.2 [facility] Basophils 10e9/L [facility] Abs Immature 0.0 0 - 0.03 [place] Granulocytes 10e9/L [facility] Specimen Anatomical Collection Method Collection Time Receive d Time (Source) Location / / Volume Laterality Blood specimen 04/05/2012 5:30 AM 012 5:45 (specimen) CDT AM CDT Rowdy Andersen MD LAB - BLOOD ORDERABLES Performing Organization Address City/State/ZIP Code Phon e Number [facility] [address] [place] [address] [facility] EKG - HIM ECG Scan [...] dose documented in this encounter Care Teams Mainspring Strip Inspector Relationship Specialty Start Date End Date Kameron German MD PCP - General Family Practice 10/21/11 12/21/16 [facility] [address] [place] [address] documented as of this encounter
--- OUTSIDE RECORDS SUMMARY | 2022-10-19 07:44 | XMS_ITS | Encounter Summary ---
:1960 Author Organization [place] Address [address] [place] [address]. [place] [address] Care Team Providers Name Role Phone Kameron German MD Primary Care Provider Encounter Details Date Type Department Care Team Description 01/25/2008 Historic Results INTERFACED REPORT Omega Poe MD [facility] [address] [facility] [address] [place], [place] [phone] (Wo rk) Social History Tobacco Use Types Packs/Day Years Used Date Smoking Tobacco: Never Assessed Sex Assigned at Date Recorded Not on file documented as of this encounter Plan of Treatment Not on filedocumented as of this encounter Procedures Procedure Name Priority Date/Time Associated Diagnosis Comme nts EKG 12 LEAD Routine 01/25/2008 1:21 PM Results f or this [facility] procedure are i n the results section . documented in this encounter Results EKG 12 LEAD (01/25/2008 1:21 PM [facility]) Component Value Ref Range Test Analysis Performed Pathologis t Method Time At Signature Ventricular Rate 74 BPM RADIOLOGY RESULTS Atrial Rate 74 BPM RADIOLOGY RESULTS AR Interval 158 ms RADIOLOGY RESULTS QRS Duration 90 ms RADIOLOGY RESULTS QT 366 ms RADIOLOGY RESULTS QTc 406 ms RADIOLOGY RESULTS P [place] 39 degrees RADIOLOGY RESULTS R AXIS 31 degrees RADIOLOGY RESULTS T [place] 48 degrees RADIOLOGY RESULTS Interpretation AGE AND GENDER SPECIFIC ECG ANALYSIS RADIOLOGY ECG Sinus rhythm RESULTS Normal ECG Unconfirmed report - interpretation of this ECG is compute r generated - see medical record for final interpretation Specimen Anatomical Collection Method Collection Time Receive d Time (Source) Location / / Volume Laterality 01/25/2008 1:21 PM 8 [facility] 12:54 PM [facility] Omega Poe MD ECG ORDERABLES Performing Organization Address City/State/ZIP Code Phon e Number RADIOLOGY RESULTS documented in this encounter Visit Diagnoses Not on filedocumented in this encounter Care Teams Waste And Batting Waste Chopper Relationship Specialty Start Date End Date Kameron German MD PCP - General Family Practice 10/21/11 12/21/[address] [phone] documented as of this encounter
--- OUTSIDE RECORDS SUMMARY | 2022-10-19 07:44 | XMS_ITS | Encounter Summary ---
:1960 Author Organization [place] Address [address] [place] [address]. [place] [address] Care Team Providers Name Role Phone Kameron [...] RESULTS Atrial Rate 70 BPM RADIOLOGY RESULTS DE Interval 168 ms RADIOLOGY RESULTS QRS Duration 88 ms RADIOLOGY RESULTS QT 372 ms RADIOLOGY RESULTS QTc 401 ms RADIOLOGY RESULTS P [place] 23 degrees RADIOLOGY RESULTS R AXIS 40 degrees RADIOLOGY RESULTS T Nancy 28 degrees RADIOLOGY RESULTS Interpretation AGE AND [...] on filedocumented in this encounter Care Teams Simulation Software Engineer Relationship Specialty Start Date End Date Kameron German MD PCP - General Family Practice 10/21/11 12/21/[address] [phone] documented as of this encounter
--- OUTSIDE RECORDS SUMMARY | 2022-10-19 07:44 | XMS_ITS | Encounter Summary ---
:1960 Author Organization [facility] Address [address] [place] [address]. [place] [address] Care Team Providers Name Role Phone Kameron German MD Primary Care Provider Reason for Visit Reason Comments Leg Pain noted 3 days ago progressivl y worse. Encounter Details Date Type Department Care Team Description 10/06/2012 Emergency [facility] Christian Turner, Leg pain (Primary Dx); [facility] Emergency Dep t Contusion; [address] [facility] EM[facility] PHYSIC[facility], [place] [address] [address] [facility] [address] [place] [address] (Wo rk) Social History Tobacco Use Types Packs/Day Years Used Date Smoking Tobacco: Never Alcohol Use Standard Drinks/Week Comments No 0 (1 standard drink = 0.6 oz pure alcoho l) Sex Assigned at Date Recorded Not on file documented as of this encounter Last Filed Vital Signs Vital Sign Reading Time Taken Comments Blood Pressure 123/78 10/06/2012 5:45 PM HUMAN RESOURCE ADVISER Pulse 110 10/06/2012 3:24 PM HUMAN RESOURCE ADVISER Temperature 36.8 ??C (98.3 ??F) 10/06/2012 3:24 PM HUMAN RESOURCE ADVISER Respiratory Rate 16 10/06/2012 5:45 PM HUMAN RESOURCE ADVISER Oxygen Saturation 93% 10/06/2012 5:45 PM HUMAN RESOURCE ADVISER Inhaled Oxygen Concentration - - Weight - - Height - - Body Mass Index - - documented in this encounter Discharge Instructions AttachmentsThe following attachments cannot be sent through Care Everywhere.KNEE PAIN, UNCERTAIN CAUSE (EQUATORIAL GUINEAN)documented in this encounter Medications at Time of [...] MD MT: [id number] Name: SHASHANK HASTINGS Account: [id number] : 1960 Visit Date: 10/06/2012 Document: [id number] cc: Kameron German MD N RESOURCE ADVISER Li Morocho - 10/06/2012 5:47 PM CST LAD removed from R hand. PT ready for engine research engineer notified. N RESOURCE ADVISER Hannah Avalos RN - 10/06/2012 3:26 PM CST Noted pain in left leg, progressivly worse. Calf tightness and pain into the knee. Worse when standing. Denies any SOB or difficulty breathing. Does not know his current medications. Takes meds for reflux, depression and a ASA daily. N RESOURCE ADVISER documented in this encounter Plan of Treatment Not on filedocumented as of this encounter Procedures Procedure Name Priority Date/Time Associated Comments Diagnosis XR FEMUR LEFT 2 VIEWS STAT 10/06/2012 5:29 PM Results for this HUMAN RESOURCE ADVISER procedure are i n the results section. XR TIBIA AND FIBULA STAT 10/06/2012 5:28 PM Re sults for this LEFT 2 VIEWS HUMAN RESOURCE ADVISER procedure are i n the results section. US LOWER EXTREMITY STAT 10/06/2012 5:16 PM Res ults for this VENOUS DUPLEX LEFT HUMAN RESOURCE ADVISER procedure are in the results section. CBC WITH PLATELETS & STAT 10/06/2012 4:34 PM R esults for this DIFFERENTIAL HUMAN RESOURCE ADVISER procedure are i n the results section. INR STAT 10/06/2012 4:34 PM Results f or this HUMAN RESOURCE ADVISER procedure are i n the results section. BASIC METABOLIC PANEL STAT 10/06/2012 4:34 PM Results for this HUMAN RESOURCE ADVISER procedure are i n the results section. documented in this encounter Results Femur XR, 2 views, left (10/06/2012 5:29 PM HUMAN RESOURCE ADVISER) Anatomical Region Laterality Modality Hip, Thigh, Knee Left Other Specimen (Source) Anatomical Collection Method Collection Time Re ceived Time Location / / Volume Laterality 10/06/2012 5:29 PM HUMAN RESOURCE ADVISER Impressions 10/06/2012 6:19 PM HUMAN RESOURCE ADVISER FEMUR LEFT 2 VIEW 10/06/2012 5:30 PM COMPARISON: None. HISTORY: Pain FINDINGS: There is no significant degene rative change. There is no acute fracture or dislocation. There are no worrisome bony lesions. IMPRESSION: ? No acute osseous abnor mality demonstrated. Christian Turner MD [facility] DI[facility]NOSTIC IMAGING ORDER [place] Tib/Fib XR, left (10/06/2012 5:28 PM HUMAN RESOURCE ADVISER) Anatomical Region Laterality Modality Leg, Knee, Ankle Left Other Specimen (Source) Anatomical Collection Method Collection Time Re ceived Time Location / / Volume Laterality 10/06/2012 5:28 PM HUMAN RESOURCE ADVISER Impressions 10/06/2012 6:19 PM HUMAN RESOURCE ADVISER TIBIA \T\ FIBULA LEFT 10/06/2012 5:29 PM COMPARISON: None. HISTORY: Pain FINDINGS: There is no significant degene rative change. There is no acute fracture or dislocation. There are no worrisome bony lesions. IMPRESSION: ? No acute osseous abnor mality demonstrated. Christian Turner MD [facility] DIAGNOSTIC IMAGING ORDER TERESA Leg, left, venous US (10/06/2012 5:16 PM HUMAN RESOURCE ADVISER) Anatomical Region Laterality Modality Vascular, Thigh, Leg Other Specimen (Source) Anatomical Collection Method Collection Time Re ceived Time Location / / Volume Laterality 10/06/2012 5:16 PM HUMAN RESOURCE ADVISER Impressions 10/06/2012 5:19 PM HUMAN RESOURCE ADVISER US VENOUS LOWER EXTREMITY UNILATERAL LEF T [...] ORDERABLES Basic metabolic panel (10/06/2012 4:34 PM HUMAN RESOURCE ADVISER) P athologist Signature Sodium 138 133 - 144 [place] mmol/L [facility] Potassium 4.1 3.4 - 5.3 [place] mmol/L [facility] Chloride 103 94 - 109 [place] mmol/L [facility] Carbon Dioxide 26 20 - 32 [place] mmol/L [facility] Anion Gap 9 6 - 17 [place] mmol/L [facility] Glucose 86 60 - 99 [place] mg/dL [facility] Urea Nitrogen 18 7 - 30 [place] mg/dL [facility] Creatinine 0.86 0.66 - [facility] 1.25 mg/dL [facility] GFR Estimate >90 >60 [place] mL/min/1.[address] LAB GFR Estimate If >90 >60 [place] Black mL/min/1.[address] LAB Calcium 8.7 8.5 - 10.4 [place] mg/dL [facility] Specimen Anatomical Collection Method Collection Time Receive d Time (Source) Location / / Volume Laterality Blood specimen 10/06/2012 4:34 PM 012 4:47 (specimen) HUMAN RESOURCE ADVISER PM HUMAN RESOURCE ADVISER Christian Turner MD LAB - BLOOD ORDERABLES Performing Organization Address City/State/ZIP Code Phon e Number [place] [address] [address] [place], [place] [address] [facility] INR (10/06/2012 4:34 PM HUMAN RESOURCE ADVISER) P athologist Signature INR 0.92 0.86 - 1.14 [facility] Specimen Anatomical Collection Method Collection Time Receive d Time (Source) Location / / Volume Laterality Blood specimen 10/06/2012 4:34 PM 012 4:47 (specimen) HUMAN RESOURCE ADVISER PM HUMAN RESOURCE ADVISER Christian Turner MD LAB - BLOOD ORDERABLES Performing Organization Address City/State/ZIP Code Phon e Number [facility] [address] [place] [address] [facility] (ABNORMAL) CBC with platelets differential (10/06/2012 4:34 PM HUMAN RESOURCE ADVISER) Patholo gist Method Time Signature WBC 11.5 (H) 4.0 - [place] 11.0 [facility] 10e9/L [facility] RBC Count 5.03 4.4 - 5.9 [place] 10e12/L [facility] Hemoglobin 15.2 13.3 - [place] 17.7 g/dL [facility] Hematocrit 43.9 40.0 - [place] 53.0 % [facility] MCV 87 78 - 100 [place] fl [facility] MCH 30.2 26.5 - [place] 33.0 pg [facility] MCHC 34.6 31.5 - [place] 36.5 g/dL [facility] RDW 13.4 10.0 - [place] 15.0 % [facility] Platelet Count 337 150 - 450 [place] 10e9/L [facility] Diff Method Automated [facility] % Neutrophils 39.7 (L) 40 - 75 % [facility] % Lymphocytes 47.2 20 - 48 % [facility] % Monocytes 7.6 0 - 12 % [facility] % Eosinophils 4.6 0 - 6 % [facility] % Basophils 0.7 0 - 2 % [facility] % Immature 0.2 0 - 0.4 % [place] Granulocytes [facility] Absolute 4.6 1.6 - 8.3 [place] Neutrophil 10e9/L [facility] Absolute 5.4 (H) 0.8 - 5.3 [place] Lymphocytes 10e9/L [facility] Absolute 0.9 0.0 - 1.3 [place] Monocytes 10e9/L [facility] Absolute 0.5 0.0 - 0.7 [place] Eosinophils 10e9/L [facility] Absolute 0.1 0.0 - 0.2 [place] Basophils 10e9/L [facility] Abs Immature 0.0 0 - 0.03 [place] Granulocytes 10e9/L [facility] Reactive Lymphs Present [facility] RBC Morphology Consistent [place] with reported [facility] results [facility] Platelet Normal [place] Estimate [facility] Specimen Anatomical Collection Method Collection Time Receive d Time (Source) Location / / Volume Laterality Blood specimen 10/06/2012 4:34 PM 012 4:47 (specimen) HUMAN RESOURCE ADVISER PM HUMAN RESOURCE ADVISER Christian Turner MD LAB - BLOOD ORDERABLES Performing Organization Address City/State/ZIP Code Phon e Number [facility] [address] [place] [address] [facility] documented in this encounter Visit Diagnoses Diagnosis Leg pain - Primary Pain in limb Contusion Contusion of unspecified site Strain Unspecified site of sprain and strain documented in this encounter Administered Medications Inactive Administered Medications - up to 3 most recent administrations Medication Order MAR Action Action Date Dose Rate Site morphine (PF) injection 4 mg Given 10/06/2012 4:35 PM HUMAN RESOURCE ADVISER 4 mg 4 mg, Intravenous, EVERY 15 MIN PRN, moderate to severe pain, Starting on Tue10/06/12 at 1622, For 3 doses ondansetron (ZOFRAN) injection 4 mg Given 10/06/2012 4:34 PM HUMAN RESOURCE ADVISER 4 mg 4 mg, Intravenous, EVERY 30 MIN PRN, nausea, vomiting, Administer over 2-5 Minutes, Starting on Tue10/06/12 at 1622, For 3 doses, May repeat in 30 minutes as needed, up to 3 doses. sodium chloride 0.9 % BOLUS New Bag 10/06/2012 4:34 PM HUMAN RESOURCE ADVISER 1,000 m Ls 1000 mL/hr 1,000 mL Intravenous, 1,000 mL, ONCE, at 1,000 mL/hr, Administer over 1 Hours, On Tue10/06/12 at 1630, For 1 dose documented in this encounter Active and Recently Administered Medications Times are shown in HUMAN RESOURCE ADVISER. Scheduled Medication Order 10/04/2012 10/05/2012 10/06/2012 sodium [...] doses. documented in this encounter Care Teams Document Control Assistant Relationship Specialty Start Date End Date Kameron German MD PCP - General Family Practice 10/21/11 12/21/[address] [phone] documented as of this encounter
--- OUTSIDE RECORDS SUMMARY | 2022-10-19 07:44 | XMS_ITS | Encounter Summary ---
:1960 Author Organization [facility] Address [address] [place] [address]. [place] [address] Care Team Providers Name Role Phone Unavailable Primary Care Provider Unavailable Encounter Details Date Type Department Care Team Description 02/24/2010 [facility] Results [address] [address] (Wo rk) Social History Tobacco Use Types Packs/Day Years Used Date Smoking Tobacco: Never Assessed Sex Assigned at Date Recorded Not on file documented as of this encounter Plan of Treatment Not on filedocumented as of this encounter Procedures Procedure Name Priority Date/Time Associated Diagnosis Comme [facility] RT X-RAY FOOT Routine 02/24/2010 [...]
--- OUTSIDE RECORDS SUMMARY | 2022-10-19 07:45 | XMS_ITS | Encounter Summary ---
:1960 Author Organization [facility] Address [address] [place] [address] Care Team Providers Name Role Phone Unavailable Primary Care Provider Unavailable Encounter Details Date Type Department Care Team Description 12/15/2007 Historic Results Physical Medicine and Johny, Sc robb Mccollum MD [facility] [address] [place], [place] [address], [place] 1st Floor, Clinic [address] [place] [address] [place] [phone] (Work) [phone] Social History Tobacco Use Types Packs/Day Years Used Date Smoking Tobacco: Never Assessed Sex Assigned at Date Recorded Not on file documented as of this encounter Plan of Treatment Not on filedocumented as of this encounter Procedures Procedure Name Priority Date/Time Associated Diagnosis Comme nts GLUCOSE BY METER Routine 12/15/2007 5:04 PM Resul ts for this DIRECTOR VETERINARY procedure are i n the results section. GLUCOSE BY METER Routine 12/15/2007 12:09 PM Resu lts for this DIRECTOR VETERINARY procedure are i n the results section. GLUCOSE BY METER Routine 12/15/2007 7:45 AM Resul ts for this DIRECTOR VETERINARY procedure are i n the results section. HEMOGRAM AND Routine 12/15/2007 7:28 AM Results f or this PLATELET DIRECTOR VETERINARY procedure are i n the results section. BASIC METABOLIC Routine 12/15/2007 7:28 AM Result s for this PANEL DIRECTOR VETERINARY procedure are i n the results section. documented in this encounter Results Glucose by meter (12/15/2007 5:04 PM DIRECTOR VETERINARY) athologist Signature Glucose 80 60 - 99 [place] mg/dL Comment: RN/Dr notified Specimen Anatomical Collection Method Collection Time Receive d Time (Source) Location / / Volume Laterality 12/15/2007 5:04 PM 8 DIRECTOR VETERINARY 12:50 AM DIRECTOR VETERINARY Tomy Mcclain MD LAB - [facility] POCT Performing Organization Address [facility] Code Phon e Number [place] (ABNORMAL) Glucose by meter (12/15/2007 12:09 PM DIRECTOR VETERINARY) P athologist Signature Glucose 122 (H) 60 - 99 [place] mg/dL Specimen Anatomical Collection Method Collection Time Receive d Time (Source) Location / / Volume Laterality 12/15/2007 12:09 12/16/2007 PM DIRECTOR VETERINARY 12:46 AM DIRECTOR VETERINARY Tomy Mcclain MD LAB - [place] POCT Performing Organization Address [facility] Code Phon e Number [place] Glucose by meter (12/15/2007 7:45 AM DIRECTOR VETERINARY) athologist Signature Glucose 99 60 - 99 [place] mg/dL Specimen Anatomical Collection Method Collection Time Receive d Time (Source) Location / / Volume Laterality 12/15/2007 7:45 AM 8 DIRECTOR VETERINARY 12:50 AM DIRECTOR VETERINARY Tomy Mcclain MD LAB - [place] POCT Performing Organization Address [facility] Phon e Number M[place] Basic metabolic panel (12/15/2007 7:28 AM DIRECTOR VETERINARY) P athologist Signature Sodium 142 133 - [...] Laterality 12/15/2007 7:28 AM 01/24/200 8 8:55 DIRECTOR VETERINARY AM DIRECTOR VETERINARY Tomy Mcclain MD LAB - BLOOD ORDERABLES Performing Organization Address City/State/ZIP Code Phon e Number [place] (ABNORMAL) Hemogram and platelet (12/15/2007 7:28 AM DIRECTOR VETERINARY) Analysis Performed At [facility] Time Signature MCV 88 78 - [...] Volume Laterality 12/15/2007 7:28 AM 8 8:55 DIRECTOR VETERINARY AM DIRECTOR VETERINARY Tomy Mcclain MD LAB - BLOOD ORDERABLES Performing Organization Address City/State/ZIP Code Phon e Number [place] documented in this encounter Visit Diagnoses Not on filedocumented in this encounter
--- OUTSIDE RECORDS SUMMARY | 2022-10-19 07:45 | XMS_ITS | Encounter Summary ---
:1960 Author Organization [facility] Address [address] [place] [address] Care Team Providers Name Role Phone Unavailable Primary Care Provider Unavailable Encounter Details Date Type Department Care Team Description 12/13/2007 Historic Results Physical Medicine and Johny, Rickey Mccollum MD [facility] [address] [place], [place] [address], [place] 1st Floor, Clinic [address] [place] [address] [place] [phone] (Work) [phone] Social History Tobacco Use Types Packs/Day Years Used Date Smoking Tobacco: Never Assessed Sex Assigned at Date Recorded Not on file documented as of this encounter Plan of Treatment Not on filedocumented as of this encounter Procedures Procedure Name Priority Date/Time Associated Diagnosis Comme nts GLUCOSE BY METER Routine 12/13/2007 5:40 PM Resul ts for this LAMINATING MACHINE OPERATOR procedure are i n the results section. GLUCOSE BY METER Routine 12/13/2007 7:59 AM Resul ts for this LAMINATING MACHINE OPERATOR procedure are i n the results section. documented in this encounter Results (ABNORMAL) Glucose by meter (12/13/2007 5:40 PM LAMINATING MACHINE OPERATOR) P athologist Signature Glucose 100 (H) 60 - 99 [place] mg/dL Specimen Anatomical Collection Method Collection Time Receive d Time (Source) Location / / Volume Laterality 12/13/2007 5:40 PM 8 LAMINATING MACHINE OPERATOR 11:45 PM LAMINATING MACHINE OPERATOR Tomy Mcclain MD [facility] POCT Performing Organization Address City/State/[facility] Code Phon e Number [place] Glucose by meter (12/13/2007 7:59 AM LAMINATING MACHINE OPERATOR) P athologist Signature Glucose 91 60 - 99 [place] mg/dL Specimen Anatomical Collection Method Collection Time Receive d Time (Source) Location / / Volume Laterality 12/13/2007 7:59 AM 8 LAMINATING MACHINE OPERATOR 11:35 PM LAMINATING MACHINE OPERATOR Tomy Mcclain MD [facility] POCT Performing Organization Address City/State/ZIP Code Phon e Number [place] documented in this encounter Visit Diagnoses Not on filedocumented in this encounter
--- OUTSIDE RECORDS SUMMARY | 2022-10-19 07:45 | XMS_ITS | Encounter Summary ---
:1960 Author Organization [facility] Address [address] [place] [address]. [place] [address] Care Team Providers Name Role Phone Kameron German MD Primary Care Provider Encounter Details Date Type Department Care Team Description 12/26/2007 [facility] Darshana Prajapati, Vocational Training Teacher Rehabilitation PT Services [facility] [address] [place] [address] [phone] Social History Tobacco Use Types Packs/Day Years Used Date Smoking Tobacco: Never Assessed Sex Assigned at Date Recorded Not on file documented as of this encounter Progress Notes Darshana Prajapati, PT - 10/26/2011 4:02 PM SALT MANAGER FINAL PHYSICAL THERAPY EVALUATION Total Evaluation Time: 50 minutes with 10 minutes of therapeutic exercises Summary: Patient is a 47-year-old man who has had a right MCA occlusion with subarachnoid blood from right sylvian fissure over the right frontal and parietal lobes. Upon admission to the hospital, he received intra-arterial TPA. He was admitted to [facility] on 12/05/2007 and was seen by occupational therapy, physical therapy and speech therapy at that time. He was then discharged to [facility] on 12/12/2007 and discharged to home on 12/15/2007. Patient presents below his level of function for activity tolerance, as well as having complaints of wooziness on his left side, especially with head turns during gait and dynamic mobility. Physical therapy is appropriate to address these issues. 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 Impairments: Mild decreased left hip strength, mild gait deviations with head turns, increased fatigue, decreased tolerance for activity. Prognosis: Good to achieve below stated goals. Patient is motivated to return to his baseline function. 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 Physical Therapy Goals (to be met in 4 weeks): 1. Patient will be independent in a home exercise program for general strength and endurance. 2. Patient will be able to ambulate without an assistive device for distances of 100 feet with no change in velocity or gait pattern when turning his head to the left and right and will have minimal complaints of wooziness during gait. 3. 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 Interventions This Session: Evaluation was performed and patient was educated on the results of the evaluation findings and plan of care. Patient was also instructed in basic standing exercise program for conditioning endurance. EXAMINATION Physical Therapy Order/Medical Diagnosis: Physical therapy evaluate and treat S/P right MCA CVI. Chief Complaint/Functional Limitations: Patient feels that he is doing fairly well mobility-guzman and does feel that the majority of his deficits are involving his memory and cognition; however, he does report that he feels increased sense of imbalance described as wooziness on the left side of his head which increases when he becomes fatigued and that it also occurs if he is changing directions quickly or turning his head. Pain: No Past Medical History: Includes hypertension and hyperlipidemia. Patient also reports that he smoked for over 30 years, but quit approximately three years ago. Living/Social History: Patient lives with his and daughter in a split level home. He reports at this time that he is independent with stairs, as well as ADLs. He reports that he is able to ambulate up stairs without a railing, however, has been consciously using the railing going down the stairs as a precaution to increase his steadiness. 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 Educational Assessment Learning Barriers: Cognitive impairments, specifically short-term memory, problem solving and attention. Education Needs: disease process and exercise program SYSTEMS REVIEW Communication, Affect, Cognition: not impaired Emotional/Behavioral Responses: not impaired Comments: Emotional/behavioral responses appeared appropriate today, however, discussion with OT revealed that patient has complained of increased emotional lability lately. Musculoskeletal System Gross ROM Upper Extremities: Please see OT for details. Lower Extremities: not impaired Gross Strength Upper Extremities: Please see OT evaluation. Lower Extremities: slightly impaired Comments: Patient's right hip flexion 4/5, left hip flexion 4-/5, bilateral knee flexion and extension 5/5, bilateral ankle dorsiflexion is 5/5. Neuromuscular System Sensation: impaired Comments: Patient complains of mild left hand tremor which is intermittent. He also has numbness from his left hand to his shoulder. He also states that his left upper extremity is more sensitive to temperature changes. Locomotion Gait: Dynamic Gait Index was performed and patient scored 21/24. Greatest impairments on the Dynamic Gait Index involved slight change in gait velocity with horizontal and vertical head turns. Patient also reports feeling woozy with moving has head left to right, but more to the right. Patient also feels he needs to use the rail when descending stairs to steady himself. Gait pattern appears within normal limits. Patient also demonstrates appropriate speed and trunk control during gait. Balance: Osborn Balance Test was performed. Patient scored 56/56 indicating no significant deficits with balance. Thank you for referring Shashank Hastings to Physical Therapy. Please call with any questions at [phone]. Electronically signed on 12/29/2007 13:00 by DARSHANA PRAJAPATI PT MT: roberta Name: SHASHANK HASTINGS Account: [id number] : 1960 Visit Date: 12/26/2007 Sex: M Age: 47 Document: [id number] MANAGER documented in this encounter Plan of Treatment Not on filedocumented as of this encounter Visit Diagnoses Not on filedocumented in this encounter Care Teams Hot Billet Shear Operator Relationship Specialty Start Date End Date Kameron German MD PCP - General Family Practice 10/21/11 12/21/[address] [phone] documented as of this encounter
--- OUTSIDE RECORDS SUMMARY | 2022-10-19 07:45 | XMS_ITS | Encounter Summary ---
:1960 Author Organization [place] Address [address] [place] [address] Care Team Providers Name Role Phone Unavailable Primary Care Provider Unavailable Encounter Details Date Type Department Care Team Description 12/17/2007 Historic Results Physical Medicine and Johny, Rickey Mccollum MD [facility] [address] [place], [place] [id number] [place], [place] 1st Floor, Clinic [address] [place] [address] [place] [phone] (Work) [phone] Social History Tobacco Use Types Packs/Day Years Used Date Smoking Tobacco: Never Assessed Sex Assigned at Date Recorded Not on file documented as of this encounter Plan of Treatment Not on filedocumented as of this encounter Procedures Procedure Name Priority Date/Time Associated Diagnosis Comme nts GLUCOSE BY METER Routine 12/17/2007 8:05 AM Resul ts for this MIRROR MACHINE FEEDER procedure are i n the results section. HEMOGRAM AND Routine 12/17/2007 7:25 AM Results f or this PLATELET MIRROR MACHINE FEEDER procedure are i n the results section. documented in this encounter Results (ABNORMAL) Glucose by meter (12/17/2007 8:05 AM MIRROR MACHINE FEEDER) P athologist Signature Glucose 101 (H) 60 - 99 MISYS mg/dL Specimen Anatomical Collection Method Collection Time Receive d Time (Source) Location / / Volume Laterality 12/17/2007 8:05 AM 8 MIRROR MACHINE FEEDER 12:35 AM MIRROR MACHINE FEEDER Tomy Mcclain MD [facility] POCT Performing Organization Address City/State/ZIP Code Phon e Number MISYS (ABNORMAL) Hemogram and platelet (12/17/2007 7:25 AM MIRROR MACHINE FEEDER) Analysis Performed At Patho logist Time Signature [...] / Volume Laterality 12/17/2007 7:25 AM 8 MIRROR MACHINE FEEDER 12:58 PM MIRROR MACHINE FEEDER Tomy Mcclain MD LAB - BLOOD ORDERABLES Performing Organization Address City/State/ZIP Code Phon e Number MISYS documented in this encounter Visit Diagnoses Not on filedocumented in this encounter
--- OUTSIDE RECORDS SUMMARY | 2022-10-19 07:45 | XMS_ITS | Encounter Summary ---
:1960 Author Organization [place] Address [address] [place] [address]. [place] [address] Care Team Providers Name Role Phone Unavailable Primary Care Provider Unavailable Encounter Details Date Type Department Care Team Description 01/15/2008 Office Visit-[facility] INTERFACE [facility] DEPT Provider, [facility] Nurs e Social History Tobacco Use Types Packs/Day Years Used Date Smoking Tobacco: Never Assessed Sex Assigned at Date Recorded Not on file documented as of this encounter Progress Notes Provider, [facility] Nurse - 01/15/2008 2:30 PM CST Cooperative Manager: Marisol Monsalve Status: Final Encounter: 15 Jan [...] By: Marisol Monsalve LPN; 01/15/2008 2:42 PM SCRAP CRUSHER. documented in this encounter Plan of Treatment Not on filedocumented as of this encounter Visit Diagnoses Not on filedocumented in this encounter
--- OUTSIDE RECORDS SUMMARY | 2022-10-19 07:45 | XMS_ITS | Encounter Summary ---
:1960 Author Organization [place] Address [address] [place] [address] Care Team Providers Name Role Phone Unavailable Primary Care Provider Unavailable Encounter Details Date Type Department Care Team Description 01/15/2008 Office Visit-P INTERFACE P DEPT Gabriel Brown MD [address] [facility] [place], [place] [address] (Wo rk) Social History Tobacco Use Types Packs/Day Years Used Date Smoking Tobacco: Never Assessed Sex Assigned at Date Recorded Not on file documented as of this encounter Progress Notes Gabriel Brown - 01/15/2008 2:30 PM CST Carpentry Instructor: Gabriel Brown Status: Final - Signature Encounter: 15 Jan 2008 Type: PM and R Visit Physical Medicine and Rehabilitation [place] Mail Code [address] [place] [address] Office: [phone] Physical Medicine and Rehabilitation Clinic [facility], Clinic [address]A [address] [place] [address] RE: Shashank Hastings : 1960 [place]: 01/15/2008 [...] the acute inpatient rehabilitation unit on the [facility]. He discharged to home on December 18, [...] SOCIAL HISTORY: He continues to live in [place], [place], with his and adult daughter. 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 He reports a very good working relationship [...] temptations of consumption himself. 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 REVIEW OF SYSTEMS: No difficulties with [...] therapies, which are currently being conducted through [facility]. He can discontinue his physical therapy with outlined home exercise program. 3. We discussed return to work and this in part will be easier once he is able to return to driving,see below. I completed a workability form and given the reported flexibility and accommodating employer, we will start with Tuesday, Tuesday, Tuesday, half days initially with close supervision by his p eers/shift production supervisor. He and his employer can ad [...] information for [facility], as well as [employer] [facility] and he believes the former will be pursued. I completed a formal order for this and he will contact [facility]. 5. Blood pressure and other stroke risk factors were reviewed and he is managing these through his primary provider, Dr. German, at [facility]. He has been able to discontinue some [...] needs should they arise. Gabriel Brown M.D. Auto Refinisher Department of Physical Medicine & Rehabilitation [facility] Total time: 70 minutes, greater than 80 percent in counseling on the above detailed items. SCC:marie cc: Kameron German MD [facility] [id number] [place] [id number] Electronically signed by:GABRIEL BROWN M.D. Jan 25 2008 10:18AM JOINT RUNNER T RUNNER documented in this encounter Plan of Treatment Not on filedocumented as of this encounter Visit Diagnoses Not on filedocumented in this encounter
--- OUTSIDE RECORDS SUMMARY | 2022-10-19 07:45 | XMS_ITS | Encounter Summary ---
:1960 Author Organization [place] Address [facility] [place] [address] Care Team Providers Name Role Phone Kameron German MD Primary Care Provider Encounter Details Date Type Department Care Team Description 01/11/2008 Historic Supervisor Forming Department INTERFACED REPORT Interface, MD Sonali Social History Tobacco Use Types Packs/Day Years Used Date Smoking Tobacco: Never Assessed Sex Assigned at Date Recorded Not on file documented as of this encounter Plan of Treatment Not on filedocumented as of this encounter Visit Diagnoses Not on filedocumented in this encounter Care Teams Clearance Diver Relationship Specialty Start Date End Date Kameron German MD PCP - General Family Practice 10/21/11 12/21/[address] [address] documented as of this encounter
--- OUTSIDE RECORDS SUMMARY | 2022-10-19 07:45 | XMS_ITS | Encounter Summary ---
:1960 Author Organization [address] [place] [address] Care Team Providers Name Role Phone Unavailable Primary Care Provider Unavailable Encounter Details Date Type Department Care Team Description 12/13/2007 Historic Notes INTERFACED REPORT Vesta Camacho, VETERINARY MEDICAL OFFICER [address] [id number] (Wo rk) Social History Tobacco Use Types Packs/Day Years Used Date Smoking Tobacco: Never Assessed Sex Assigned at Date Recorded Not on file documented as of this encounter Progress Notes Vesta Camacho, VETERINARY MEDICAL OFFICER - 02/08/2011 4:27 AM CDT Discharge Summary Discharge - Reason for Discharge Discharge from facility, to acute rehab - Progress toward achieving short Goals partially met term goals/assistant terminal manager goals - Barriers to achieving goals Early [...]
--- OUTSIDE RECORDS SUMMARY | 2022-10-19 07:45 | XMS_ITS | Encounter Summary ---
:1960 Author Organization [place] Address [address] [place] [address] Care Team Providers Name Role Phone Unavailable Primary Care Provider Unavailable Encounter Details Date Type Department Care Team Description 12/14/2007 Historic Results Physical Medicine and Johny, Rickey Mccollum MD [facility] [address] [place], [place] [id number], [place] 1st Floor, Clinic [address] [place] [address] [place] [phone] [phone] (Work) [phone] Social History Tobacco Use Types Packs/Day Years Used Date Smoking Tobacco: Never Assessed Sex Assigned at Date Recorded Not on file documented as of this encounter Plan of Treatment Not on filedocumented as of this encounter Procedures Procedure Name Priority Date/Time Associated Diagnosis Comme nts GLUCOSE BY METER Routine 12/14/2007 5:28 PM Resul ts for this VALVE INSPECTOR procedure are i n the results section. GLUCOSE BY METER Routine 12/14/2007 7:50 AM Resul ts for this VALVE INSPECTOR procedure are i n the results section. documented in this encounter Results Glucose by meter (12/14/2007 5:28 PM VALVE INSPECTOR) P athologist Signature Glucose 97 60 - 99 MISYS mg/dL Comment: RN/Dr notified Specimen Anatomical Collection Method Collection Time Receive d Time (Source) Location / / Volume Laterality 12/14/2007 5:28 PM 8 VALVE INSPECTOR 12:30 AM VALVE INSPECTOR Tomy Mcclain MD [facility] POCT Performing Organization Address City/State/ZIP Code Phon e Number MISYS Glucose by meter (12/14/2007 7:50 AM VALVE INSPECTOR) P athologist Signature Glucose 94 60 - 99 MISYS mg/dL Specimen Anatomical Collection Method Collection Time Receive d Time (Source) Location / / Volume Laterality 12/14/2007 7:50 AM 8 VALVE INSPECTOR 12:30 AM VALVE INSPECTOR Tomy Mcclain MD [facility] POCT Performing Organization Address City/State/ZIP Code Phon e Number MISYS documented in this encounter Visit Diagnoses Not on filedocumented in this encounter
--- OUTSIDE RECORDS SUMMARY | 2022-10-19 07:45 | XMS_ITS | Encounter Summary ---
:1960 Author Organization [place] Address [address] [place] [address]. [place] [address] Care Team Providers Name Role Phone Kameron German MD Primary Care Provider Encounter Details Date Type Department Care Team Description 12/21/2007 Historic Assistant Superintendent For Curriculum [facility] Ivon, OT [address] [place], [place] [address] [facility] [address] [place], [place] [id number] Social History Tobacco Use Types Packs/Day Years Used Date Smoking Tobacco: Never Assessed Sex Assigned at Date Recorded Not on file documented as of this encounter Progress Notes Interface, Assistant Superintendent For Curriculum - 10/26/2011 4:[address] CAR MECHANIC FINAL OCCUPATIONAL THERAPY EVALUATION Patient is a [...] prior to evaluation. 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 Patient received intra-arterial tPA. Patient was seen by occupational therapy, physical therapy and speech therapy at [facility] and then was discharged to [facility] on 12/12/2007. While patient was at [facility], the Cognitive Assessment of [place] was completed and results of testing were [...] problem solving. Patient was then discharged from [facility] on 12/15/2007. Patient's past [...] father to three adult children. 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 SOCIAL HISTORY/HOME ENVIRONMENT: Patient lives [...] INSTRUMENTAL ACTIVITIES OF DAILY LIVING (IADL) : ([place]; Modified [place]: Use of equipment/adaptations or with increased time; [...] WFL. Hand Function: Dominance: right Neuromuscular Function: Maintenance Machinist Strength: R= 88 #L= 75 # Lateral [...] impairment. While patient was an inpatient at [facility], patient scored 15 on the Short Blessed [...] Therapy. Please call with any questions at [phone]. Electronically signed on 12/22/2007 13:43 by MATTHIAS CUELLO MT: roberta Name: SHASHANK HASTINGS Account: [id number] : 1960 Visit Date: 12/21/2007 Sex: M Age: 47 Document: [id number] ET CAR MECHANIC documented in this encounter Plan of Treatment Not on filedocumented as of this encounter Visit Diagnoses Not on filedocumented in this encounter Care Teams Supervisor Hot Dip Plating Relationship Specialty Start Date End Date Kameron German MD PCP - General Family Practice 10/21/11 12/21/[address] [id number] documented as of this encounter
--- OUTSIDE RECORDS SUMMARY | 2022-10-19 07:45 | XMS_ITS | Encounter Summary ---
:1960 Author Organization [place] Address [facility] [place] [address] Care Team Providers Name Role Phone Unavailable Primary Care Provider Unavailable Encounter Details Date Type Department Care Team Description 12/13/2007 Historic Notes INTERFACED REPORT Interface, Transcript onMD Social History Tobacco Use Types Packs/Day Years Used Date Smoking Tobacco: Never Assessed Sex Assigned at Date Recorded Not on file documented as of this encounter Progress Notes Interface, Returner - 02/08/2011 4:27 AM CDT [facility] Focus:Initial visit/Spiritual Assessment D: Pt had a stroke and had good success with recovery. Pt is from [place]. Pt has a and three children. One lives in [place] and two in [place]. 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 Pt says he feels like he was [...] path. Pt says he doesn't have a cheondoism, but he is a part of a [...] this at times. I: Oriented pt to [facility]. Actively and reflectively listened to pt. [...] Will visit with pt as requested. pager [phone] (EPA and other routine referrals may be submitted to [facility] at [phone] or as an FCIS order for a [facility] consult. Routine referrals are picked up intermittently from 8a-5p, 13/06 and responded to within 24 hours. For urgent needs, the on-call enrollment management vice president will reply to a page from the switchboard or an FCIS stat order within 10 minutes.) [Signature] Author:ARELY MALIK () [Signed 16:18] documented in this encounter Plan of Treatment Not on filedocumented as of this encounter Visit Diagnoses Not on filedocumented in this encounter
--- OUTSIDE RECORDS SUMMARY | 2022-10-19 07:45 | XMS_ITS | Encounter Summary ---
:1960 Author Organization [place] Address [address] [place] [address]. [place] [address] Care Team Providers Name Role Phone Unavailable Primary Care Provider Unavailable Encounter Details Date Type Department Care Team Description 12/12/2007 Historic Notes INTERFACED REPORT Shantell Foster, PT [facility] [address] [place] [address] (Wo rk) Social History Tobacco [...] fall Score:3 Retrieve Object from Floor Instructions: supervisor paint department the shoe which is placed in front [...] degrees Instructions: Turn around in a full [place]. Pause for one minute, then turn a full [place] in the other direction. 4-Safe in less [...] Progress toward achieving Goals met short term goals/tank terminal gauger goals - Comments Pt scored 47/56 on Lou. SBA with mobility - Continued Therapy Yes Recommended - Rationale/ Recommendations To progress independence with functional mobility. Signatures Shantell Del Cdi (PT)[Signed 09:22] Authored: Discharge Summary documented in this encounter Plan of Treatment Not on filedocumented as of this encounter Visit Diagnoses Not on filedocumented in this encounter
--- OUTSIDE RECORDS SUMMARY | 2022-10-19 07:45 | XMS_ITS | Encounter Summary ---
:1960 Author Organization [place] Address [facility] [address] Care Team Providers Name Role Phone Unavailable Primary Care Provider Unavailable Encounter Details Date Type Department Care Team Description 12/12/2007 Historic Notes INTERFACED REPORT Interface, Transcript onMD Social History Tobacco Use Types Packs/Day Years Used Date Smoking Tobacco: Never Assessed Sex Assigned at Date Recorded Not on file documented as of this encounter Progress Notes Interface, Back Up Machine Operator - 02/08/2011 4:32 AM CDT Progress Note [...]
--- OUTSIDE RECORDS SUMMARY | 2022-10-19 07:45 | XMS_ITS | Encounter Summary ---
:1960 Author Organization [place] Address [facility] [place] [address] Care Team Providers Name Role Phone Unavailable Primary Care Provider Unavailable Encounter Details Date Type Department Care Team Description 12/14/2007 Historic Notes INTERFACED REPORT Interface, Transcript onMD Social History Tobacco Use Types Packs/Day Years Used Date Smoking Tobacco: Never Assessed Sex Assigned at Date Recorded Not on file documented as of this encounter Progress Notes Interface, Toilet Products Molder - 02/08/2011 4:24 AM CDT Nutrition Assessment Nutrition Assessment - Reason for assessment Admission screen Anthropometrics - Height: 68 - Admission weight: 98 Kg - BMI: 33 - IBW ([place] body weight): 70 kG - Adjusted weight: [...]
--- OUTSIDE RECORDS SUMMARY | 2022-10-19 07:45 | XMS_ITS | Encounter Summary ---
:1960 Author Organization [place] Address [facility] [place] [address] Care Team Providers Name Role Phone Unavailable Primary Care Provider Unavailable Encounter Details Date Type Department Care Team Description 12/15/2007 Historic Notes INTERFACED REPORT Interface, Transcript onMD Social History Tobacco Use Types Packs/Day Years Used Date Smoking Tobacco: Never Assessed Sex Assigned at Date Recorded Not on file documented as of this encounter Progress Notes Interface, Radio Interference Trouble Shooter - 02/08/2011 4:20 AM CDT Pt was [...]
--- OUTSIDE RECORDS SUMMARY | 2022-10-19 07:45 | XMS_ITS | Encounter Summary ---
:1960 Author Organization [place] Address [address] [place] [address] Care Team Providers Name Role Phone Unavailable Primary Care Provider Unavailable Encounter Details Date Type Department Care Team Description 12/12/2007 Historic Results Physical Medicine and Johny, Rickey Mccollum MD Rehabilitation Clini [facility] [address] [place], [place] [id number] [place], [place] 1st Floor, Clinic [address] [place] [address] [place] [phone] (Work) [phone] Social History Tobacco Use Types Packs/Day Years Used Date Smoking Tobacco: Never Assessed Sex Assigned at Date Recorded Not on file documented as of this encounter Plan of Treatment Not on filedocumented as of this encounter Procedures Procedure Name Priority Date/Time Associated Diagnosis Comme nts GLUCOSE BY METER Routine 12/12/2007 9:19 PM Resul ts for this VISUAL AND STOCK ASSOCIATE procedure are i n the results section. documented in this encounter Results (ABNORMAL) Glucose by meter (12/12/2007 9:19 PM VISUAL AND STOCK ASSOCIATE) P athologist Signature Glucose 129 (H) 60 - 99 MISYS mg/dL Comment: RN/Dr notified Specimen Anatomical Collection Method Collection Time Receive d Time (Source) Location / / Volume Laterality 12/12/2007 9:19 PM 8 VISUAL AND STOCK ASSOCIATE 11:45 PM VISUAL AND STOCK ASSOCIATE Tomy Mcclain MD [facility] POCT Performing Organization Address City/State/ZIP Code Phon e Number MISYS documented in this encounter Visit Diagnoses Not on filedocumented in this encounter
--- OUTSIDE RECORDS SUMMARY | 2022-10-19 07:45 | XMS_ITS | Encounter Summary ---
:1960 Author Organization [place] Address [facility] [place] [address] Care Team Providers Name Role Phone Kameron German MD Primary Care Provider Encounter Details Date Type Department Care Team Description 01/09/2008 Historic Pricing Intern [facility], [address] [place], [place] [address] [facility] [address] [place], [place] [id number] Social History Tobacco Use Types Packs/Day Years Used Date Smoking Tobacco: Never Assessed Sex Assigned at Date Recorded Not on file documented as of this encounter Progress Notes Interface, Pricing Intern - 10/26/2011 3:48 PM PHYSICIAN'S ASSISTANT FINAL OCCUPATIONAL THERAPY PROGRESS NOTE Shashank Hastings [...] difficulties lately as his has been in [place] over the last week and a half, [...] Therapy. Please call with any questions at [phone]. Electronically signed on 01/12/2008 16:08 by MATTHIAS CUELLO MT: roberta Name: SHASHANK HASTINGS MRN: [id number] Account: [id number] : 1960 Visit Date: 01/09/2008 Sex: M Age: 47 Document: [id number] ICIAN'S ASSISTANT documented in this encounter Plan of Treatment Not on filedocumented as of this encounter Visit Diagnoses Not on filedocumented in this encounter Care Teams Water Taxi Ferry Operator Relationship Specialty Start Date End Date Kameron German MD PCP - General Family Practice 10/21/11 12/21/[address] [address] documented as of this encounter
--- OUTSIDE RECORDS SUMMARY | 2022-10-19 07:45 | XMS_ITS | Encounter Summary ---
:1960 Author Organization [place] Address [address] [place] [address] Care Team Providers Name Role Phone Unavailable Primary Care Provider Unavailable Encounter Details Date Type Department Care Team Description 12/16/2007 Historic Results Physical Medicine and Johny, Rickey Mccollum MD Rehabilitation [facility] [address] [place], [place] [address] [place], [place] 1st Floor, Clinic [address] [place] [address] [place] [phone] (Work) [phone] Social History Tobacco Use Types Packs/Day Years Used Date Smoking Tobacco: Never Assessed Sex Assigned at Date Recorded Not on file documented as of this encounter Plan of Treatment Not on filedocumented as of this encounter Procedures Procedure Name Priority Date/Time Associated Diagnosis Comme nts GLUCOSE BY METER Routine 12/16/2007 4:54 PM Resul ts for this ALCOHOL RUBBER procedure are i n the results section. GLUCOSE BY METER Routine 12/16/2007 8:20 AM Resul ts for this ALCOHOL RUBBER procedure are i n the results section. documented in this encounter Results Glucose by meter (12/16/2007 4:54 PM ALCOHOL RUBBER) P athologist Signature Glucose 92 60 - 99 MISYS mg/dL Comment: RN/Dr notified Specimen Anatomical Collection Method Collection Time Receive d Time (Source) Location / / Volume Laterality 12/16/2007 4:54 PM 8 ALCOHOL RUBBER 12:15 AM ALCOHOL RUBBER Tomy Mcclain MD [facility] POCT Performing Organization Address City/State/ZIP Code Phon e Number MISYS (ABNORMAL) Glucose by meter (12/16/2007 8:20 AM ALCOHOL RUBBER) P athologist Signature Glucose 143 (H) 60 - 99 MISYS mg/dL Specimen Anatomical Collection Method Collection Time Receive d Time (Source) Location / / Volume Laterality 12/16/2007 8:20 AM 8 ALCOHOL RUBBER 12:15 AM ALCOHOL RUBBER Tomy Mcclain MD [facility] POCT Performing Organization Address City/State/ZIP Code Phon e Number MISYS documented in this encounter Visit Diagnoses Not on filedocumented in this encounter
--- OUTSIDE RECORDS SUMMARY | 2022-10-19 07:45 | XMS_ITS | Encounter Summary ---
:1960 Author Organization [place] Address [address] [facility] [place] [address] Care Team Providers Name Role Phone Unavailable Primary Care Provider Unavailable Encounter Details Date Type Department Care Team Description 12/12/2007 Historic Notes INTERFACED REPORT Marylin Restrepo [facility] [address] [place], [place] [id number] (Wo rk) Social History Tobacco Use Types Packs/Day Years Used Date Smoking Tobacco: Never Assessed Sex Assigned at Date Recorded Not on file documented as of this encounter Progress Notes Marylin Restrepo - 02/08/2011 4:32 AM CDT Discharge Summary Discharge - Reason for Discharge Discharge from facility, Acute Rehab - Progress toward achieving Goals partially met short term goals/intermodal owner operator truck driver goals - Barriers to achieving goals Early [...]
--- OUTSIDE RECORDS SUMMARY | 2022-10-19 07:46 | XMS_ITS | Encounter Summary ---
:1960 Author Organization [place] Address [address] [place] [address]. [place] [address] Care Team Providers Name Role Phone Unavailable Primary Care Provider Unavailable Encounter Details Date Type Department Care Team Description 12/05/2007 Results Only [facility] Se era James MD [facility] EMERGENCY PHY EGRALD PA Results [address] [place], [place] [address] (Wo rk) Social History Tobacco Use Types Packs/Day Years Used Date Smoking Tobacco: Never Assessed Sex Assigned at Date Recorded Not on file documented as of this encounter Plan of Treatment Not on filedocumented as of this encounter Procedures Procedure Name Priority Date/Time Associated Diagnosis Comme nts CT ANGIO HEAD Routine 12/05/2007 3:43 PM Resul ts for this WO&W CONTRAST SENIOR CLERK procedure are in the results section. HC CT HEAD WO Routine 12/05/2007 3:03 PM Results for this CONTRAST SENIOR CLERK procedure are i n the results section. documented in this encounter Results CT ANGIO, HEAD (12/05/2007 3:43 PM SENIOR CLERK) Anatomical Region Laterality Modality Other Specimen (Source) Anatomical Collection Method Collection Time Re ceived Time Location / / Volume Laterality 12/05/2007 3:43 PM SENIOR CLERK Impressions 12/05/2007 11:28 PM SENIOR CLERK EXAMINATION: CT ANGIOGRAM OF THE BRAIN W [...] is demo nstrated through patent MELCHOR and BULK SEALER collaterals. This occlusion is a menable to intravenous or intra-arterial tPA depending on the julius ng of the patient's symptoms. These findings were conveyed to Dr. Estela cobb in the emergency room at the time of interpretation. Ej James MD SPECIAL IMAGING STUDIES CT SCAN HEAD/BRAIN (12/05/2007 3:03 PM SENIOR CLERK) Anatomical Region Laterality Modality Other Specimen (Source) Anatomical Collection Method Collection Time Re ceived Time Location / / Volume Laterality 12/05/2007 3:03 PM SENIOR CLERK Impressions 12/05/2007 11:27 PM SENIOR CLERK EXAMINATION: HEAD CT WITHOUT CONTRAST ?? Dec [...]
--- OUTSIDE RECORDS SUMMARY | 2022-10-19 07:46 | XMS_ITS | Encounter Summary ---
:1960 Author Organization [place] Address [address] [place] [address]. [place] [address] Care Team Providers Name Role Phone Unavailable Primary Care Provider Unavailable Encounter Details Date Type Department Care Team Description 12/06/2007 Historic Notes INTERFACED REPORT George Guzman , CALLUM CONTRERAS TEEN [address] [address] (Wo rk) Social History Tobacco [...] (See Comment) - Comments PT admitted to [facility] on 12/05 with altered mental status and [...]
--- OUTSIDE RECORDS SUMMARY | 2022-10-19 07:46 | XMS_ITS | Encounter Summary ---
:1960 Author Organization [place] Address [address] [place] [address]. [place] [address] Care Team Providers Name Role Phone Unavailable Primary Care Provider Unavailable Encounter Details Date Type Department Care Team Description 12/08/2007 Historic Results INTERFACED REPORT Steph Linda MD [facility] RADIOLOG Y [address] [place], [place] [phone] (Wo rk) Social History Tobacco Use Types Packs/Day Years Used Date Smoking Tobacco: Never Assessed Sex Assigned at Date Recorded Not on file documented as of this encounter Plan of Treatment Not on filedocumented as of this encounter Procedures Procedure Name Priority Date/Time Associated Diagnosis Comme nts BASIC METABOLIC Routine 12/08/2007 4:43 AM Result s for this PANEL FOREST FIRE FIGHTERS DISPATCHER procedure are i n the results section. GLUCOSE BY METER Routine 12/08/2007 12:05 AM Resu lts for this FOREST FIRE FIGHTERS DISPATCHER procedure are i n the results section. documented in this encounter Results (ABNORMAL) Basic metabolic panel (12/08/2007 4:43 AM FOREST FIRE FIGHTERS DISPATCHER) P athologist Signature Sodium 147 (H) 133 [...] Volume Laterality 12/08/2007 4:43 AM 8 8:46 FOREST FIRE FIGHTERS DISPATCHER AM FOREST FIRE FIGHTERS DISPATCHER Nessa Dominguez MD LAB - BLOOD ORDERABLES Performing Organization Address City/State/ZIP Code Phon e Number MISYS (ABNORMAL) Glucose by meter (12/08/2007 12:05 AM FOREST FIRE FIGHTERS DISPATCHER) P athologist Signature Glucose 132 (H) 60 - 99 MISYS mg/dL Comment: RN/Dr notified Specimen Anatomical Collection Method Collection Time Receive d Time (Source) Location / / Volume Laterality 12/08/2007 12:05 12/08/2007 8:52 AM FOREST FIRE FIGHTERS DISPATCHER AM FOREST FIRE FIGHTERS DISPATCHER Fredrick Linda MD LAB - BEAKER POCT Performing Organization Address City/State/ZIP Code Phon e Number MISYS documented in this encounter Visit Diagnoses Not on filedocumented in this encounter
--- OUTSIDE RECORDS SUMMARY | 2022-10-19 07:46 | XMS_ITS | Encounter Summary ---
:1960 Author Organization [place] Address Pending sale to [facility] [place] [address] Care Team Providers Name Role Phone Unavailable Primary Care Provider Unavailable Encounter Details Date Type Department Care Team Description 12/09/2007 Results Only [facility] Marian[facility]anes [facility] Results [address] [place], [place] [address] (Wo rk) Social History Tobacco Use Types Packs/Day Years Used Date Smoking Tobacco: Never Assessed Sex Assigned at Date Recorded Not on file documented as of this encounter Plan of Treatment Not on filedocumented as of this encounter Procedures Procedure Name Priority Date/Time Associated Diagnosis Comme nts HC CT HEAD WO Routine 12/09/2007 6:17 AM Results for this CONTRAST PRODUCTION OPERATIONS INSPECTOR procedure are i n the results section. documented in this encounter Results CT SCAN HEAD/BRAIN (12/09/2007 6:17 AM PRODUCTION OPERATIONS INSPECTOR) Anatomical Region Laterality Modality Other Specimen (Source) Anatomical Collection Method Collection Time Re ceived Time Location / / Volume Laterality 12/09/2007 6:17 AM PRODUCTION OPERATIONS INSPECTOR Impressions 12/09/2007 8:[address] HEAD WITHOUT CONTRAST ??Dec 09, 2007 [...]
--- OUTSIDE RECORDS SUMMARY | 2022-10-19 07:46 | XMS_ITS | Encounter Summary ---
:1960 Author Organization [place] Address [facility] [place] [address] Care Team Providers Name Role Phone Unavailable Primary Care Provider Unavailable Encounter Details Date Type Department Care Team Description 12/06/2007 Results Only [facility] Jeremy Laughlin, in [place] [facility] [place] [facility] [address] [place] [address] [place] [address] [phone] (Wo rk) Social History Tobacco Use Types Packs/Day Years Used Date Smoking Tobacco: Never Assessed Sex Assigned at Date Recorded Not on file documented as of this encounter Progress Notes Elizabeth Rice - 12/07/2007 3:19 PM HAND IRONER Quick Note: ECHO results faxed to Dr Laughlin. IRONER documented in this encounter Plan of Treatment Not on filedocumented as of this encounter Procedures Procedure Name Priority Date/Time Associated Diagnosis Comme [facility] ECHO HEART Routine 12/06/2007 2:05 PM Results for this XTHORACIC,COMPLETE, HAND IRONER procedur e are in W/O DOPPLER the results section. HC MRA NECK W/O Routine 12/06/2007 8:53 AM Result s for this CONTRAST HAND IRONER procedure are i n the results section. HC MRI BRAIN W/O Routine 12/06/2007 8:53 AM Resul ts for this CONTRAST HAND IRONER procedure are i n the results section. documented in this encounter Results ECHO HEART,COMPLETE (12/06/2007 2:05 PM HAND IRONER) [facility] Method Time Signature [facility] Interpretation [...] / / Volume Laterality 12/06/2007 2:05 PM HAND IRONER Kyle Laughlin MD SPECIAL IMAGING STUDIES MR ANGIO, NECK (12/06/2007 8:53 AM HAND IRONER) Anatomical Region Laterality Modality Other Specimen (Source) Anatomical Collection Method Collection Time Re ceived Time Location / / Volume Laterality 12/06/2007 8:53 AM HAND IRONER Impressions 12/06/2007 8:33 PM HAND IRONER EXAMINATION: MRA OF THE NECK, Dec 06 8:53:00 AM CLINICAL INDICATION: Acute stroke sympto ms. COMPARISON: There are no prior cervical angiograms available for comparison. TECHNIQUE: 1.5 Madeline MRI was utilized to obtain axial 2 dimensional vyln-dy-lhynyl and coronal 3D time-of-fl ight with contrast [...] IMAGING STUDIES MRI BRAIN (12/06/2007 8:53 AM HAND IRONER) Anatomical Region Laterality Modality Other Specimen (Source) Anatomical Collection Method Collection Time Re ceived Time Location / / Volume Laterality 12/06/2007 8:53 AM HAND IRONER Impressions 12/06/2007 8:32 PM HAND IRONER EXAMINATION: MRI OF THE BRAIN WITH AND [...]
--- OUTSIDE RECORDS SUMMARY | 2022-10-19 07:46 | XMS_ITS | Encounter Summary ---
:1960 Author Organization [place] Address [address] [place] [address]. [place] [address] Care Team Providers Name Role Phone Unavailable Primary Care Provider Unavailable Encounter Details Date Type Department Care Team Description 12/06/2007 Historic Notes INTERFACED REPORT Interface, Transcript onMD Social History Tobacco Use Types Packs/Day Years Used Date Smoking Tobacco: Never Assessed Sex Assigned at Date Recorded Not on file documented as of this encounter Progress Notes Interface, Manufacturing Maintenance Manager - 02/08/2011 4:50 AM CDT General Information General Information - <R> How to be addressed Carlo - <R> Apiarist Needed No Patient Contact Information - <R> building supplies salesperson retail to Jolly Hastings notify: - Contact Location: Home Local - <R> Phone 1: [phone] - Cell CALL THIS # 1ST!! - building supplies salesperson retail #2: Nitin Hastings - Cell Advance Directive [...] Care - C: Community: Are you part Sikhism community:, sikhism, has of a cultural, spiritual or support of 's police manager of employee relations holiness community/taoist? - <R> Would you like pastoral Does not wish to have anyone contacted care/clergy/remote advisor notified? Mutuality/Individual Preferences Mutuality/Preferences - <R> [...] Tolerance, Values/Beliefs/Spiritual Care, Mutuality/Individual Preferences Shania López (Road Worker)[Signed 09:58] Authored: Values/Beliefs/Spiritual Care Interface, Manufacturing Maintenance Manager - 02/08/2011 4:49 AM CDT MD Notification [...] Rachel Salazar (RN)[Signed 08:32] Authored: Notification Interface, Manufacturing Maintenance Manager - 02/08/2011 4:49 AM CDT SH --Referral from staff. Talked briefly with pt and pt's . stated, We are fine. Declined offered to talk at this time or need of doll eye setter. 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 also stated that they have good support. Informed them of SHS available to them if they desire services. Offered support. No followup planned at this time. [Signature] Author:Shania López (Road Worker) [Signed 09:58] Interface, Manufacturing Maintenance Manager - 02/08/2011 4:48 AM CDT BRIEF NUTRITION [...] Cruz (RD, LD, CNSD) [Signed 13:56] Interface, Manufacturing Maintenance Manager - 02/08/2011 4:48 AM CDT MD Notification [...] Salazar (RN)[Signed 15:50] Authored: MD Notification Interface, Manufacturing Maintenance Manager - 02/08/2011 4:47 AM CDT SW: D: Acknowledge automatic MD order per CVI protocol but unable to meet with pt. today. Noted PT and OT plan to see pt. tomorrow as she is on bed rest. P: Will review pt's chart and progress and follow up for discharge planning at the earliest opportunity. Lian Loya, [facility], [phone] [Signature] Author:MOSHE LOYA ([facility]) [Signed 16:40] Interface, Manufacturing Maintenance Manager - 02/08/2011 4:47 AM CDT Sheath Removal - Sheath Removed by: ALMA WEIR - Arterial Sheath: Hand Held, manual pressure for 17 minutes - Patient Instructed: Yes Rachel Garcia ([place])[Signed 19:22] Authored: Sheath Removal documented in this encounter Plan of Treatment Not on filedocumented as of this encounter Visit Diagnoses Not on filedocumented in this encounter
--- OUTSIDE RECORDS SUMMARY | 2022-10-19 07:46 | XMS_ITS | Encounter Summary ---
:1960 Author Organization [place] Address [facility] [place] [address] Care Team Providers Name Role Phone Unavailable Primary Care Provider Unavailable Encounter Details Date Type Department Care Team Description 12/08/2007 [facility] Results MD NOAH SHINE [address] [place] [address] (Wo rk) Social History Tobacco Use Types Packs/Day Years Used Date Smoking Tobacco: Never Assessed Sex Assigned at Date Recorded Not on file documented as of this encounter Plan of Treatment Not on filedocumented as of this encounter Procedures Procedure Name Priority Date/Time Associated Diagnosis Comme nts HC CT HEAD WO Routine 12/08/2007 6:09 AM Results for this CONTRAST LIFE ASSURANCE REPRESENTATIVE procedure are i n the results section. documented in this encounter Results CT SCAN HEAD/BRAIN (12/08/2007 6:09 AM LIFE ASSURANCE REPRESENTATIVE) Anatomical Region Laterality Modality Other Specimen (Source) Anatomical Collection Method Collection Time Re ceived Time Location / / Volume Laterality 12/08/2007 6:09 AM LIFE ASSURANCE REPRESENTATIVE Impressions 12/08/2007 7:[address] HEAD WITHOUT CONTRAST - December 08, 2007 6:09:00 AM HISTORY: ??Cerebrovascular insufficiency , follow up. TECHNIQUE: Axial images of the head with out IV contrast material. COMPARISON: CT head dated 12/07/2007. FINDINGS: There is an area of hemorrhage in the region of the right sylvian fissure. This may be within the external capsule. There is a small amount of surrounding edema. The s ize of the hemorrhage and the amount of edema has not changed signific antly when compared to the exam of 12/07/2006. There is a small amou nt of subarachnoid blood. This is also unchanged. There is no hydroceph alus. IMPRESSION: No significant change when c ompared to 12/07/2006. Kyle Laughlin MD SPECIAL IMAGING STUDIES documented in this encounter Visit Diagnoses Not on filedocumented in this encounter
--- OUTSIDE RECORDS SUMMARY | 2022-10-19 07:46 | XMS_ITS | Encounter Summary ---
:1960 Author Organization [place] Address [address] [place] [address]. [place] [address] Care Team Providers Name Role Phone Kameron German MD Primary Care Provider Encounter Details Date Type Department Care Team Description 12/05/2007 Historic Results INTERFACED REPORT Gracie James MD EMERGENCY PHYSIC [place] [address] (Wo rk) Social History Tobacco Use Types Packs/Day Years Used Date Smoking Tobacco: Never Assessed Sex Assigned at Date Recorded Not on file documented as of this encounter Plan of Treatment Not on filedocumented as of this encounter Procedures Procedure Name Priority Date/Time Associated Diagnosis Comme nts EKG 12 LEAD Routine 12/05/2007 3:22 PM Results f or this SERGING MACHINE OPERATOR AUTOMATIC procedure are i n the results section . documented in this encounter Results EKG 12 LEAD (12/05/2007 3:22 PM SERGING MACHINE OPERATOR AUTOMATIC) [facility] Method Time Signature Ventricular Rate 86 BPM RADIOLOGY RESULTS Atrial Rate 86 BPM RADIOLOGY RESULTS MA Interval 154 ms RADIOLOGY RESULTS QRS Duration 84 ms RADIOLOGY RESULTS QT 374 ms RADIOLOGY RESULTS QTc 447 ms RADIOLOGY RESULTS P [place] 34 degrees RADIOLOGY RESULTS R AXIS 29 degrees RADIOLOGY RESULTS T [place] 17 degrees RADIOLOGY RESULTS Interpretation Sinus rhythm RADIOLOGY ECG Normal ECG RESULTS No previous ECGs available Specimen Anatomical Collection Method Collection Time Receive d Time (Source) Location / / Volume Laterality 12/05/2007 3:22 PM 8 2:50 SERGING MACHINE OPERATOR AUTOMATIC PM SERGING MACHINE OPERATOR AUTOMATIC Ej James MD ECG ORDERABLES Performing Organization Address City/State/ZIP Code Phon e Number RADIOLOGY RESULTS documented in this encounter Visit Diagnoses Not on filedocumented in this encounter Care Teams Stranding Supervisor Relationship Specialty Start Date End Date Kameron German MD PCP - General Family Practice 10/21/11 12/21/[address] [phone] documented as of this encounter
--- OUTSIDE RECORDS SUMMARY | 2022-10-19 07:46 | XMS_ITS | Encounter Summary ---
:1960 Author Organization [place] Address [facility] [place] [address] Care Team Providers Name Role Phone Unavailable Primary Care Provider Unavailable Encounter Details Date Type Department Care Team Description 12/09/2007 Historic Results [facility] [address] [facility] [address] [facility] N [facility] [phone] CHRISTIANO WATSON [facility] [phone] (Wo rk) Social History Tobacco Use Types Packs/Day Years Used Date Smoking Tobacco: Never Assessed Sex Assigned at Date Recorded Not on file documented as of this encounter Plan of Treatment Not on filedocumented as of this encounter Procedures Procedure Name Priority Date/Time Associated Diagnosis Comme nts BASIC METABOLIC Routine 12/09/2007 8:05 AM Result s for this PANEL FARE COLLECTOR procedure are i n the results section. documented in this encounter Results (ABNORMAL) Basic metabolic panel (12/09/2007 8:05 AM FARE COLLECTOR) P athologist Signature Sodium 143 133 - [...] / Volume Laterality 12/09/2007 8:05 AM 8 FARE COLLECTOR Nitin Katz MD LAB - BLOOD ORDERABLES Performing Organization Address City/State/ZIP Code Phon e Number MISYS documented in this encounter Visit Diagnoses Not on filedocumented in this encounter
--- OUTSIDE RECORDS SUMMARY | 2022-10-19 07:46 | XMS_ITS | Encounter Summary ---
:1960 Author Organization [place] Address [facility] [place] [address] Care Team Providers Name Role Phone Unavailable Primary Care Provider Unavailable Encounter Details Date Type Department Care Team Description 12/11/2007 Historic Notes INTERFACED REPORT Interface, Transcript onMD Social History Tobacco Use Types Packs/Day Years Used Date Smoking Tobacco: Never Assessed Sex Assigned at Date Recorded Not on file documented as of this encounter Progress Notes Interface, English As A Second Language Teacher - 02/08/2011 4:34 AM CDT Discharge Planning - Discharge From: [facility] - Patient Care Unit: 55 - U [facility] Phone number after [phone] discharge: - Transportation: Private, Signatures Ruchi Franco ([facility])[Signed 11:52] Authored: Discharge Planning Interface, English As A Second Language Teacher - 02/08/2011 4:34 AM CDT Social Work Services [facility] has accepted pt. Spoke to pt's by phone. She agrees with plan. She will transport pt at 1100 tomorrow. P: Grocery Packer will follow. Ruchi BONILLAW ext [phone] [Signature] Author:Ruchi Franco ([facility]) [Signed 11:55] Interface, English As A Second Language Teacher - 02/08/2011 4:33 AM CDT Progress Note [...]
--- OUTSIDE RECORDS SUMMARY | 2022-10-19 07:46 | XMS_ITS | Encounter Summary ---
:1960 Author Organization [place] Address [address] [place] [address]. [place] [address] Care Team Providers Name Role Phone Unavailable Primary Care Provider Unavailable Encounter Details Date Type Department Care Team Description 12/07/2007 Historic Results INTERFACED REPORT Steph Linda MD [facility] RADIOLOG Y [address] [place], [place] [phone] (Wo rk) Social History Tobacco Use Types Packs/Day Years Used Date Smoking Tobacco: Never Assessed Sex Assigned at Date Recorded Not on file documented as of this encounter Plan of Treatment Not on filedocumented as of this encounter Procedures Procedure Name Priority Date/Time Associated Diagnosis Comme nts GLUCOSE BY METER Routine 12/07/2007 5:07 PM Resul ts for this TRADEMARK PARALEGAL procedure are i n the results section. GLUCOSE BY METER Routine 12/07/2007 11:58 AM Resu lts for this TRADEMARK PARALEGAL procedure are i n the results section. GLUCOSE BY METER Routine 12/07/2007 8:20 AM Resul ts for this TRADEMARK PARALEGAL procedure are i n the results section. BASIC METABOLIC Routine 12/07/2007 5:13 AM Result s for this PANEL TRADEMARK PARALEGAL procedure are i n the results section. documented in this encounter Results (ABNORMAL) Glucose by meter (12/07/2007 5:07 PM TRADEMARK PARALEGAL) P athologist Signature Glucose 118 (H) 60 - 99 MISYS mg/dL Specimen Anatomical Collection Method Collection Time Receive d Time (Source) Location / / Volume Laterality 12/07/2007 5:07 PM 8 8:52 TRADEMARK PARALEGAL AM TRADEMARK PARALEGAL Fredrick ZELAYA - BECATARINO POCT Performing Organization Address [facility] Phon e Number MISYS (ABNORMAL) Glucose by meter (12/07/2007 11:58 AM TRADEMARK PARALEGAL) P athologist Signature Glucose 121 (H) 60 - 99 MISYS mg/dL Specimen Anatomical Collection Method Collection Time Receive d Time (Source) Location / / Volume Laterality 12/07/2007 11:58 12/08/2007 8:52 AM TRADEMARK PARALEGAL AM TRADEMARK PARALEGAL Fredrick ZELAYA - BECATARINO POCT Performing Organization Address [facility] Phon e Number MISYS (ABNORMAL) Glucose by meter (12/07/2007 8:20 AM TRADEMARK PARALEGAL) P athologist Signature Glucose 119 (H) 60 - 99 MISYS mg/dL Specimen Anatomical Collection Method Collection Time Receive d Time (Source) Location / / Volume Laterality 12/07/2007 8:20 AM 8 8:52 TRADEMARK PARALEGAL AM TRADEMARK PARALEGAL Fredrick ZELAYA - ANGELY POCT Performing Organization Address [facility] Phon e Number MISYS (ABNORMAL) Basic metabolic panel (12/07/2007 5:13 AM TRADEMARK PARALEGAL) P athologist Signature Sodium 147 (H) 133 [...] / Volume Laterality 12/07/2007 5:13 AM 8 TRADEMARK PARALEGAL 10:05 AM TRADEMARK PARALEGAL Nessa Dominguez MD LAB - BLOOD ORDERABLES Performing Organization Address [facility]/State/ZIP Code Phon e Number MISYS documented in this encounter Visit Diagnoses Not on filedocumented in this encounter
--- OUTSIDE RECORDS SUMMARY | 2022-10-19 07:46 | XMS_ITS | Encounter Summary ---
:1960 Author Organization [place] Address [address] [place] [address]. [place] [address] Care Team Providers Name Role Phone Unavailable Primary Care Provider Unavailable Encounter Details Date Type Department Care Team Description 12/06/2007 Historic Results INTERFACED REPORT Steph Linda MD [facility] RADIOLOG Y [place] [address] [place], [place] [phone] (Wo rk) Social History Tobacco Use Types Packs/Day Years Used Date Smoking Tobacco: Never Assessed Sex Assigned at Date Recorded Not on file documented as of this encounter Plan of Treatment Not on filedocumented as of this encounter Procedures Procedure Name Priority Date/Time Associated Comments Diagnosis BASIC METABOLIC PANEL Timed 12/06/2007 4:20 PM Results for this PORT SURVEYOR procedure are i n the results section. GLUCOSE BY METER Routine 12/06/2007 4:05 PM Resul ts for this PORT SURVEYOR procedure are i n the results section. GLUCOSE BY METER Routine 12/06/2007 11:31 Results for this AM PORT SURVEYOR procedure are i n the results section. GLUCOSE BY METER Routine 12/06/2007 9:21 AM Resul ts for this PORT SURVEYOR procedure are i n the results section. HEMOGRAM DIFFERENTIAL Routine 12/06/2007 4:00 AM Results for this AND PLATELET PORT SURVEYOR procedure are i n the results section. UA MACROSCOPIC WITH Routine 12/06/2007 4:00 AM Re sults for this REFLEX TO MICRO PORT SURVEYOR procedure ar e in the results section. MAGNESIUM Routine 12/06/2007 4:00 AM Results f or this PORT SURVEYOR procedure are i n the results section. LIPID PROFILE Routine 12/06/2007 4:00 AM Results for this PORT SURVEYOR procedure are i n the results section. ERYTHROCYTE Routine 12/06/2007 4:00 AM Results f or this SEDIMENTATION RATE PORT SURVEYOR procedure are in AUTO the results section. BASIC METABOLIC PANEL Routine 12/06/2007 4:00 AM Results for this PORT SURVEYOR procedure are i n the results section. GLUCOSE BY METER Routine 12/06/2007 3:54 AM Resul ts for this PORT SURVEYOR procedure are i n the results section. GLUCOSE BY METER Routine 12/06/2007 12:17 Results for this AM PORT SURVEYOR procedure are i n the results section. documented in this encounter Results (ABNORMAL) Basic metabolic panel (12/06/2007 4:20 PM PORT SURVEYOR) P athologist Signature Sodium 149 (H) 133 [...] Volume Laterality 12/06/2007 4:20 PM 8 3:00 PORT SURVEYOR PM PORT SURVEYOR Kyle Laughlin MD LAB - BLOOD ORDERABLES Performing Organization Address City/State/ZIP Code Phon e Number MISYS (ABNORMAL) Glucose by meter (12/06/2007 4:05 PM PORT SURVEYOR) P athologist Signature Glucose 202 (H) 60 - 99 MISYS mg/dL Specimen Anatomical Collection Method Collection Time Receive d Time (Source) Location / / Volume Laterality 12/06/2007 4:05 PM 8 7:45 PORT SURVEYOR AM PORT SURVEYOR Frderick Linda MD LAB - BEAKER POCT Performing Organization Address City/State/ZIP Code Phon e Number MISYS (ABNORMAL) Glucose by meter (12/06/2007 11:31 AM PORT SURVEYOR) athologist Signature Glucose 143 (H) 60 - 99 MISYS mg/dL Specimen Anatomical Collection Method Collection Time Receive d Time (Source) Location / / Volume Laterality 12/06/2007 11:31 12/07/2007 7:45 AM PORT SURVEYOR AM PORT SURVEYOR Fredrick ZELAYA - BECATARINO POCT Performing Organization Address [facility] Phon e Number MISYS (ABNORMAL) Glucose by meter (12/06/2007 9:21 AM PORT SURVEYOR) athologist Signature Glucose 131 (H) 60 - 99 MISYS mg/dL Specimen Anatomical Collection Method Collection Time Receive d Time (Source) Location / / Volume Laterality 12/06/2007 9:21 AM 8 7:50 PORT SURVEYOR AM PORT SURVEYOR Fredrick ZELAYA - ANGELY POCT Performing Organization Address [facility] Phon e Number MISYS (ABNORMAL) UA macroscopic with reflex to micro (12/06/2007 4:00 AM PORT SURVEYOR) Component Value Ref Test Analysis Performed At [facility] Range Method Time Signature Source Catheterized MISYS Urine Color Urine Yellow MISYS Appearance Urine Clear MISYS Glucose Urine Negative NEG MISYS mg/dL Bilirubin Urine Negative NEG MISYS Ketones Urine Negative NEG MISYS mg/dL Specific [place] 1.010 1.003 - MISYS Urine 1.035 Blood [...] Volume Laterality 12/06/2007 4:00 AM 8 7:46 PORT SURVEYOR PM PORT SURVEYOR Kyle Laughlin MD LAB - URINE ORDERABLES Performing Organization Address [facility] Phon e Number MISYS (ABNORMAL) Erythrocyte sedimentation rate auto (12/06/2007 4:00 AM PORT SURVEYOR) athologist Signature Sed Rate 25 (H) 0 - 15 mm/h MISYS Specimen (Source) Anatomical Collection Method Collection Time Re ceived Time Location / / Volume Laterality 12/06/2007 4:00 AM 8 PORT SURVEYOR Kyle Laughlin MD LAB - BLOOD ORDERABLES Performing Organization Address City/State/ZIP Code Phon e Number MISYS (ABNORMAL) Hemogram differential and platelet (12/06/2007 4:00 AM PORT SURVEYOR) Component Value Ref Test Analysis Performed At [...] / Volume Laterality 12/06/2007 4:00 AM 8 PORT SURVEYOR Joie Pina MD LAB - BLOOD ORDERABLES Performing Organization Address City/[facility]/ZIP Code Phon e Number MISYS (ABNORMAL) Basic metabolic panel (12/06/2007 4:00 AM PORT SURVEYOR) P athologist Signature Sodium 154 (H) 133 [...] / Volume Laterality 12/06/2007 4:00 AM 8 PORT SURVEYOR Joie Pina MD LAB - BLOOD ORDERABLES Performing Organization Address City/State/ZIP Code Phon e Number MISYS (ABNORMAL) Lipid panel (12/06/2007 4:00 AM PORT SURVEYOR) P athologist Signature Cholesterol 205 (H) 0 [...] Volume Laterality 12/06/2007 4:00 AM 8 4:11 PORT SURVEYOR AM PORT SURVEYOR Kyle Laughlin MD LAB - BLOOD ORDERABLES Performing Organization Address City/State/ZIP Code Phon e Number MISYS (ABNORMAL) Magnesium (12/06/2007 4:00 AM PORT SURVEYOR) P athologist Signature Magnesium 2.5 (H) 1.6 - 2.3 MISYS mg/dL Specimen Anatomical Collection Method Collection Time Receive d Time (Source) Location / / Volume Laterality 12/06/2007 4:00 AM 8 PORT SURVEYOR 10:02 AM PORT SURVEYOR Kyle Laughlin MD LAB - BLOOD ORDERABLES Performing Organization Address [facility] Phon e Number MISYS (ABNORMAL) Glucose by meter (12/06/2007 3:54 AM PORT SURVEYOR) P athologist Signature Glucose 133 (H) 60 - 99 MISYS mg/dL Specimen Anatomical Collection Method Collection Time Receive d Time (Source) Location / / Volume Laterality 12/06/2007 3:54 AM 8 7:31 PORT SURVEYOR AM PORT SURVEYOR Fredrick ZELAYA - ANGELY POCT Performing Organization Address [facility] Phon e Number MISYS (ABNORMAL) Glucose by meter (12/06/2007 12:17 AM PORT SURVEYOR) P athologist Signature Glucose 138 (H) 60 - 99 MISYS mg/dL Specimen Anatomical Collection Method Collection Time Receive d Time (Source) Location / / Volume Laterality 12/06/2007 12:17 12/06/2007 7:31 AM PORT SURVEYOR AM PORT SURVEYOR Fredrick ZELAYA - BECATARINO POCT Performing Organization Address [facility] Phon e Number MISYS documented in this encounter Visit Diagnoses Not on filedocumented in this encounter
--- OUTSIDE RECORDS SUMMARY | 2022-10-19 07:46 | XMS_ITS | Encounter Summary ---
:1960 Author Organization [place] Address [address] [facility] [place] [address] Care Team Providers Name Role Phone Kameron German MD Primary Care Provider Encounter Details Date Type Department Care Team Description 12/07/2007 Historic Results [facility] Heart Unknown, [address] [place] [address] Social History Tobacco Use Types Packs/Day Years Used Date Smoking Tobacco: Never Assessed Sex Assigned at Date Recorded Not on file documented as of this encounter Plan of Treatment Not on filedocumented as of this encounter Procedures Procedure Name Priority Date/Time Associated Diagnosis Comme nts ECHO CARDIAC - HIM SCAN 12/07/2007 12:00 AM NEWSPAPER MANAGER - ARCHIVE documented in this encounter Results ECHO CARDIAC - HIM SCAN - ARCHIVE (12/07/2007 12:00 AM NEWSPAPER MANAGER) Anatomical Region Laterality Modality Echocardiography Specimen (Source) Anatomical Location Collection Method / Collectio n Time Received Time / Laterality Volume 12/07/2007 Narrative This result has an attachment that is no t available. Provider Scan CV ECHO ORDERABLES documented in this encounter Visit Diagnoses Not on filedocumented in this encounter Care Teams Manager Transmission Relationship Specialty Start Date End Date Kameron German MD PCP - General Family Practice 10/21/11 12/21/16 [facility] [address] [place] [phone] documented as of this encounter
--- OUTSIDE RECORDS SUMMARY | 2022-10-19 07:46 | XMS_ITS | Encounter Summary ---
:1960 Author Organization [place] Address [facility] [place] [address] Care Team Providers Name Role Phone Unavailable Primary Care Provider Unavailable Encounter Details Date Type Department Care Team Description 12/05/2007 Consultation [facility] Joie Pina, [facility] Hospitalists [address] [place] [phone] (Wo rk) Social History Tobacco Use Types Packs/Day Years Used Date Smoking Tobacco: Never Assessed Sex Assigned at Date Recorded Not on file documented as of this encounter Progress Notes Joie Pina - 12/07/2007 6:51 PM SALES SERVICE ASSISTANT FINAL PRIMARY CARE PHYSICIAN: Kameron German MD - [facility] REASON FOR CONSULTATION: Medical management. HISTORY OF [...] revealed no hemorrhage. CT angiogram of the [place] revealed right M2 segment of [...] the weekend, especially when he went ice [employer]. Normally drinks about 2-3 beers a day [...] has three kids. 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 HABITS: Quit smoking [...] drift on the left and decreased hand printer helper on the left, decreased leg strength on [...] MD MT: kingston Name: SHASHANK HASTINGS Account: [id number] : 1960 Consult Date: 12/05/2007 Document: [id number] cc: Kameron German MD S SERVICE ASSISTANT documented in this encounter Plan of Treatment Not on filedocumented as of this encounter Visit Diagnoses Not on filedocumented in this encounter
--- OUTSIDE RECORDS SUMMARY | 2022-10-19 07:46 | XMS_ITS | Encounter Summary ---
:1960 Author Organization [place] Address [address] [place] [address]. [place] [address] Care Team Providers Name Role Phone Unavailable Primary Care Provider Unavailable Encounter Details Date Type Department Care Team Description 12/07/2007 Results Only [facility] Jeremy Laughlin, in [place] [facility] [place] [facility] [address] [place] [address] [place] [address] [phone] (Wo rk) Social History Tobacco Use Types Packs/Day Years Used Date Smoking Tobacco: Never Assessed Sex Assigned at Date Recorded Not on file documented as of this encounter Progress Notes Elizabeth Rice - 12/07/2007 3:21 PM MARBLE CARVER Quick Note: Faxed TE ECHO results to Dr Laughlin. LE CARVER documented in this encounter Plan of Treatment Not on filedocumented as of this encounter Procedures Procedure Name Priority Date/Time Associated Diagnosis Comme nts ZC ECHO Routine 12/07/2007 9:40 AM Results f or this HEART,TRANSESOPHAGE MARBLE CARVER procedur e are in AL,COMPLETE the results section. HC CT HEAD WO Routine 12/07/2007 7:34 AM Results for this CONTRAST MARBLE CARVER procedure are i n the results section. documented in this encounter Results ECHO HEART,TRANSESOPHAGEAL,COMPLETE (12/07/2007 9:40 AM MARBLE CARVER) [facility] Method Time Signature [facility] Interpretation [...] / / Volume Laterality 12/07/2007 9:40 AM MARBLE CARVER Kyle Laughlin MD SPECIAL IMAGING STUDIES CT SCAN HEAD/BRAIN (12/07/2007 7:34 AM MARBLE CARVER) Anatomical Region Laterality Modality Other Specimen (Source) Anatomical Collection Method Collection Time Re ceived Time Location / / Volume Laterality 12/07/2007 7:34 AM MARBLE CARVER Impressions 12/07/2007 4:[address] HEAD WITHOUT CONTRAST, ??Dec 07, 2007 [...]
--- OUTSIDE RECORDS SUMMARY | 2022-10-19 07:46 | XMS_ITS | Encounter Summary ---
:1960 Author Organization [place] Address [address] [facility] [place] [address] Care Team Providers Name Role Phone Unavailable Primary Care Provider Unavailable Encounter Details Date Type Department Care Team Description 12/09/2007 Consultation Jolly [place] [address] (Wo rk) Social History Tobacco Use Types Packs/Day Years Used Date Smoking Tobacco: Never Assessed Sex Assigned at Date Recorded Not on file documented as of this encounter Progress Notes Jolly Caceres - 12/13/2007 4:10 PM APPLIED PSYCHOLOGY TEACHER FINAL [facility] DEPENDENCY AGE: 47 SEX: Male MARITAL STATUS: REFERRAL: [facility] intensive care unit REASON FOR EVALUATION: An [...] abuse while in our treatment setting. IMPRESSION: [place] I: Alcohol dependence 303.9 [place] II: Deferred [place] III: Deferred [place] IV: Abuse issues, grief and loss [place] V: 45-50. Level of care: 1. Intoxication [...] he do outpatient chemical dependency treatment in [place] when medically stable and after he goes to Rehab. He meets DSMIV for criteria for substance dependence. He needs to learn sober living, coping skills, he needs to abstain from mood altering chemicals. He also needs a psych evaluation for depression. Electronically signed on 12/13/2007 16:09 by MONICA LOJA MT: JOSEPH Name: SHASHANK HASTINGS MRN: [id number] Account: [id number] : 1960 Consult Date: 12/09/2007 Document: [id number] IED PSYCHOLOGY TEACHER documented in this encounter Plan of Treatment Not on filedocumented as of this encounter Visit Diagnoses Not on filedocumented in this encounter
--- OUTSIDE RECORDS SUMMARY | 2022-10-19 07:46 | XMS_ITS | Encounter Summary ---
:1960 Author Organization [place] Address [address] [place] [address]. [place] [address] Care Team Providers Name Role Phone Unavailable Primary Care Provider Unavailable Encounter Details Date Type Department Care Team Description 12/07/2007 Historic Notes INTERFACED REPORT Interface, Transcript on, Social History Tobacco Use Types Packs/Day Years Used Date Smoking Tobacco: Never Assessed Sex Assigned at Date Recorded Not on file documented as of this encounter Progress Notes Interface, Frame Assembler - 02/08/2011 4:46 AM CDT Progress Note [...] examined - scored a class [facility] Mallampati classification - MD (Dr. Davalos) [...] following commands. Pt denies pain. Continued post RDAHA cares until 1030 when ICU nurse assumed care of pt. No adverse effects noted during procedure. All documentation completed (Pre procedure checklist, procedure flowsheet, MD signatures, RN signature, et al). LACROSSE COACH placed pt back on pre-procedure O2 and IV's. See Moderate Sedation Flowsheet for complete documentation and times. Signatures NIELS SAVAGE (RN)[Signed 11:06] Authored: Progress Note Interface, Frame Assembler - 02/08/2011 4:45 AM CDT SW: D: Per automatic MD order per CVI protocol met briefly with pt. as he was just about to have a therapy session. Pt. seems to be improving. Pt. had been completely independent prior to admission and working. A: Await therapy recommendations. P: Will follow to assist if needed for discharge plan. Lian Loya, [facility], [phone] [Signature] Author:MOSHE LOYA ([facility]) [Signed 15:26] Interface, Frame Assembler - 02/08/2011 4:44 AM CDT General Information [...] to address deficits to return patient to [facility]. - Rehabilitation Potential Good, to achieve stated [...]
--- OUTSIDE RECORDS SUMMARY | 2022-10-19 07:46 | XMS_ITS | Encounter Summary ---
:1960 Author Organization [place] Address [address] [place] [address]. [place] [address] Care Team Providers Name Role Phone Unavailable Primary Care Provider Unavailable Encounter Details Date Type Department Care Team Description 12/06/2007 Results Only [facility] Ana Linda MD [facility] RADIO LOGY PA Results [address] [place], [place] [phone] (Wo rk) Social History Tobacco Use Types Packs/Day Years Used Date Smoking Tobacco: Never Assessed Sex Assigned at Date Recorded Not on file documented as of this encounter Plan of Treatment Not on filedocumented as of this encounter Procedures Procedure Name Priority Date/Time Associated Diagnosis Comme nts CT HEAD WO Routine 12/06/2007 2:17 AM Results for this CONTRAST DIRECTOR TRAFFIC AND PLANNING procedure are i n the results section. documented in this encounter Results CT SCAN HEAD/BRAIN (12/06/2007 2:17 AM DIRECTOR TRAFFIC AND PLANNING) Anatomical Region Laterality Modality Other Specimen (Source) Anatomical Collection Method Collection Time Re ceived Time Location / / Volume Laterality 12/06/2007 2:17 AM DIRECTOR TRAFFIC AND PLANNING Impressions 12/06/2007 8:26 PM DIRECTOR TRAFFIC AND PLANNING EXAMINATION: HEAD CT WITHOUT CONTRAST on Dec [...]
--- OUTSIDE RECORDS SUMMARY | 2022-10-19 07:46 | XMS_ITS | Encounter Summary ---
:1960 Author Organization [place] Address [facility] [place] [address] Care Team Providers Name Role Phone Unavailable Primary Care Provider Unavailable Encounter Details Date Type Department Care Team Description 12/05/2007 Discharge Summary [place] bebe Blue MD (Production Line Assembler) Hospitalists [address] [place] [address] [address] KATHRYN [address] [place] [address] [place], [place] [phone] (Wo rk) [address] [phone] Social History Tobacco Use Types Packs/Day Years Used Date Smoking Tobacco: Never Assessed Sex Assigned at Date Recorded Not on file documented as of this encounter Progress Notes Interface, Production Line Assembler - 12/18/2007 7:06 PM DIGITAL PRODUCT MANAGER FINAL PLANNED DISCHARGE DATE: 12/11/2007 PRIMARY CARE PHYSICIAN: Kyle Laughlin MD DISCHARGE DIAGNOSES: 1. Acute cerebrovascular accident, status post t-PA administration. 2. Hypertension, adequate control 3. Chronic alcoholism. 4. Dyslipidemia. 5. Acid reflux disease. 6. Gastroparesis. CONSULTS OBTAINED DURING INPATIENT STAY: Neurology consult. Refer to dictation by Dr. Laughlin. PROCEDURES PERFORMED DURING THE INPATIENT STAY: 1. [...] loss of balance. CT angiogram of the [place] obtained on an emergency basis [...] [place] Name: SHASHANK HASTINGS MRN: [id number] Account: [id number] : 1960 Admit Date: [id number] Discharge Date: 12/12/2007 Document: [id number] cc: Kyle Laughlin MD TAL PRODUCT MANAGER documented in this encounter Plan of Treatment Not on filedocumented as of this encounter Visit Diagnoses Not on filedocumented in this encounter
--- OUTSIDE RECORDS SUMMARY | 2022-10-19 07:46 | XMS_ITS | Encounter Summary ---
:1960 Author Organization [place] Address [facility] [place] [address] Care Team Providers Name Role Phone Unavailable Primary Care Provider Unavailable Encounter Details Date Type Department Care Team Description 12/11/2007 Historic Notes INTERFACED REPORT Marylin Restrepo O T [facility] [address] [place], [place] [address] (Wo rk) Social History Tobacco Use Types Packs/Day Years Used Date Smoking Tobacco: Never Assessed Sex Assigned at Date Recorded Not on file documented as of this encounter Progress Notes Marylin Restrepo - 02/08/2011 4:34 AM CDT [facility] [place] SUMMARY OF TEST: The Cognitive Assessment of [place] (CAM) is a standardized cognitive evaluation that [...]
--- OUTSIDE RECORDS SUMMARY | 2022-10-19 07:46 | XMS_ITS | Encounter Summary ---
:1960 Author Organization [place] Address [facility] [place] [address] Care Team Providers Name Role Phone Unavailable Primary Care Provider Unavailable Encounter Details Date Type Department Care Team Description 12/12/2007 Admission H&P Tomy Brown MD (Face Cleaner) [address] [facility] [id number] [place], [place] [address] (Wo rk) Social History Tobacco Use Types Packs/Day Years Used Date Smoking Tobacco: Never Assessed Sex Assigned at Date Recorded Not on file documented as of this encounter Progress Notes Tomy Brown - 12/14/2007 11:37 AM ARBOR PRESS OPERATOR FINAL HISTORY OF PRESENT ILLNESS: Shashank Hastings is a 47-year-old gentleman who presented to [facility] after developing sudden onset left hand [...] a stroke. SOCIAL HISTORY: He lives in [place] with his and recently moved back an adult daughter. He has other supportive family. 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 He acknowledges 3-4 beers per night on [...] with rapid alternating movements as well as wkppqv-vfig-wprygi and toe tapping and heel pacheco all [...] with turning. No lower extremity edema. ASSESSMENT: Azlhz-engb-mtxd-old gentleman with right nondominant hemisphere ischemic stroke [...] discussions, though had previously had some at [facility]. 5. Sleep apnea: Currently does not have [...] MD MT: lubna Name: SHASHANK HASTINGS Account: [id number] : 1960 Admitted: [id number] Document: [id number] R PRESS OPERATOR documented in this encounter Plan of Treatment Not on filedocumented as of this encounter Visit Diagnoses Not on filedocumented in this encounter
--- OUTSIDE RECORDS SUMMARY | 2022-10-19 07:46 | XMS_ITS | Encounter Summary ---
:1960 Author Organization [place] Address [address] [place] [address]. [place] [address] Care Team Providers Name Role Phone Unavailable Primary Care Provider Unavailable Encounter Details Date Type Department Care Team Description 12/10/2007 Historic Notes INTERFACED REPORT Interface, Transcript onMD Social History Tobacco Use Types Packs/Day Years Used Date Smoking Tobacco: Never Assessed Sex Assigned at Date Recorded Not on file documented as of this encounter Progress Notes Interface, Drawing Checker - 02/08/2011 4:37 AM CDT Progress Note [...] Alejandro Lancaster)[Signed 07:28] Authored: Progress Note Interface, Drawing Checker - 02/08/2011 4:37 AM CDT PHYSICAL THERAPY [...] Score: 3 Retrieve Object from Floor Instructions: vending enterprises supervisor the shoe which is placed in [...] degrees Instructions: Turn around in a full [place]. Pause for one minute, then turn a full [place] in the other direction. 4-Safe in less [...]
--- OUTSIDE RECORDS SUMMARY | 2022-10-19 07:46 | XMS_ITS | Encounter Summary ---
:1960 Author Organization [place] Address [address] [place] [address]. [place] [address] Care Team Providers Name Role Phone Unavailable Primary Care Provider Unavailable Encounter Details Date Type Department Care Team Description 12/12/2007 Discharge Summary Tomy Brown MD (Business Attorney) [address] [facility] [id number] [place] [address] (Wo rk) Social History Tobacco Use Types Packs/Day Years Used Date Smoking Tobacco: Never Assessed Sex Assigned at Date Recorded Not on file documented as of this encounter Progress Notes Tomy Brown - 12/23/2007 6:37 PM MINERAL ECONOMIST FINAL DISCHARGE DIAGNOSES: 1. Ischemic stroke right [...] supervision. He previously was working full-time at [employer] and will be off work while completing [...] 3. Multivitamin with minerals recommended any routine hrwr-ltz-kamgdig version daily. 4. Nexium 40 mg daily was taking Protonix on inpatient, but either would be equivalent. 5. Senokot-S 2 tablets each day at bedtime for constipation may stop when bowels normalize. 6. Simvastatin 80 mg daily for cholesterol. 7. Aspirin 81 mg daily for platelet inhibition. 8. Tramadol 50 mg q.6h. p.r.n. headache. 9. Acetaminophen oqct-jvm-kvqkypz 650 mg up to 1000 mg q.i.d. [...] and with primary care provider Dr. German, [facility]. Electronically signed on 12/23/2007 18:36 by TOMY BROWN MD MT: JOHN Name: SHASHANK HASTINGS Account: [id number] : 1960 Admit Date: Discharge Date: 12/17/2007 Document: [id number] cc: Kameron German MD RAL ECONOMIST documented in this encounter Plan of Treatment Not on filedocumented as of this encounter Visit Diagnoses Not on filedocumented in this encounter
--- OUTSIDE RECORDS SUMMARY | 2022-10-19 07:46 | XMS_ITS | Encounter Summary ---
:1960 Author Organization [place] Address [facility] [place] [address] Care Team Providers Name Role Phone Unavailable Primary Care Provider Unavailable Encounter Details Date Type Department Care Team Description 12/08/2007 Historic Notes INTERFACED REPORT Interface, Transcript onMD Social History Tobacco Use Types Packs/Day Years Used Date Smoking Tobacco: Never Assessed Sex Assigned at Date Recorded Not on file documented as of this encounter Progress Notes Interface, Sealer Dry Cell - 02/08/2011 4:43 AM CDT Progress Note [...] [place] (DESTIN)[Signed 06:59] Authored: Progress Note Interface, Sealer Dry Cell - 02/08/2011 4:43 AM CDT General Information General Information - Type of Note Initial Evaluation - Patient Profile Review Yes - Onset Date - Referring Physician Dr. 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 Lian Loya [facility], [phone] [Signature] Author:MOSHE LOYA ([facility]) [Signed 11:25] Interface, Sealer Dry Cell - 02/08/2011 4:42 AM CDT General Information General Information - Patient Profile Review Yes - Onset Date - Referring Physician Dr. Lassig. RODAS - Patient/Family Goals PT wants to return to work - History of Present Problem PT admitted to [facility] on 12/05 with altered mental [...] Sensory Function - Completed on Swallow (see [facility] Clinical Bedside Swallow Evaluation Evaluation) Speech Functional [...] 5. Yes/No Sentence and 5 Simple Paragraph; [place] Diagnostic Aphasia Exam 3 short (out of [...] 10 total) - 3. Responsive Naming; 20 [place] Diagnostic Aphasia Exam 3 (out of 20 total) - 4. Biographic Information 3 (out of 3 total) - 7. Generate Sentences; 6 [place] Test for Differential Diagnosis Of Aphasia (out of 6 total) - 8b. Conversation; [place] 4 Diagnostic Dysphagia Exam rating (out of [...] activities) - 1. Mechanics of Writing; 4 [place] Diagnostic Aphasia Exam (out of 5 total) [...]
--- OUTSIDE RECORDS SUMMARY | 2022-10-19 07:46 | XMS_ITS | Encounter Summary ---
:1960 Author Organization [place] Address [facility] [place] [address] Care Team Providers Name Role Phone Unavailable Primary Care Provider Unavailable Encounter Details Date Type Department Care Team Description 12/05/2007 Historic Results INTERFACED REPORT Steph Linda MD [facility] [address] [place], [place] [phone] (Wo rk) Social History Tobacco Use Types Packs/Day Years Used Date Smoking Tobacco: Never Assessed Sex Assigned at Date Recorded Not on file documented as of this encounter Plan of Treatment Not on filedocumented as of this encounter Procedures Procedure Name Priority Date/Time Associated Comments Diagnosis MRSA SCREEN Routine 12/05/2007 9:40 PM Results f or this COURIER procedure are i n the results section. GLUCOSE BY METER Routine 12/05/2007 7:25 PM Resul ts for this COURIER procedure are i n the results section. HEMOGRAM DIFFERENTIAL STAT 12/05/2007 2:50 PM Results for this AND PLATELET COURIER procedure are i n the results section. TROPONIN I STAT 12/05/2007 2:50 PM Results f or this COURIER procedure are i n the results section. INR STAT 12/05/2007 2:50 PM Results f or this COURIER procedure are i n the results section. PARTIAL THROMBOPLASTIN STAT 12/05/2007 2:50 PM Results for this TIME COURIER procedure are i n the results section. COMPREHENSIVE METABOLIC STAT 12/05/2007 2:50 PM Results for this PANEL COURIER procedure are i n the results section. ETHYL ALCOHOL LEVEL STAT 12/05/2007 2:50 PM Re sults for this COURIER procedure are i n the results section. documented in this encounter Results MRSA Screen (12/05/2007 9:40 PM COURIER) [facility] Method Time Signature Specimen Nasal MISYS Description Culture Micro No MRSA MISYS isolated Micro Report FINAL MISYS Status 12/07/2007 Specimen Anatomical Collection Method Collection Time Receive d Time (Source) Location / / Volume Laterality 12/05/2007 9:40 PM 8 COURIER 10:05 PM COURIER Fredrick Linda MD LAB - BLOOD ORDERABLES Performing Organization Address City/State/ZIP Code Phon e Number MISYS (ABNORMAL) Glucose by meter (12/05/2007 7:25 PM COURIER) athologist Signature Glucose 125 (H) 60 - 99 MISYS mg/dL Specimen Anatomical Collection Method Collection Time Receive d Time (Source) Location / / Volume Laterality 12/05/2007 7:25 PM 8 7:41 COURIER AM COURIER Fredrick Linda MD LAB - BEAKER POCT Performing Organization Address City/[facility] Code Phon e Number MISYS (ABNORMAL) Hemogram differential and platelet (12/05/2007 2:50 PM COURIER) Component Value Ref Test Analysis Performed At [facility] Range Method Time Signature MCV 89 78 [...] Volume Laterality 12/05/2007 2:50 PM 8 2:50 COURIER PM COURIER Ej James MD LAB - BLOOD ORDERABLES Performing Organization Address City/[facility] Phon e Number MISYS INR (12/05/2007 2:50 PM COURIER) P athologist Signature INR 0.89 0.86 - 1.14 MISYS Specimen Anatomical Collection Method Collection Time Receive d Time (Source) Location / / Volume Laterality 12/05/2007 2:50 PM 8 2:50 COURIER PM COURIER Ej aJmes MD LAB - BLOOD ORDERABLES Performing Organization Address [facility] Code Phon e Number MISYS Partial thromboplastin time (12/05/2007 2:50 PM COURIER) P athologist Signature PTT 23 22 - 37 sec MISYS Specimen Anatomical Collection Method Collection Time Receive d Time (Source) Location / / Volume Laterality 12/05/2007 2:50 PM 8 2:50 COURIER PM COURIER Ej James MD LAB - BLOOD ORDERABLES Performing Organization Address [facility] Phon e Number MISYS Comprehensive metabolic panel (12/05/2007 2:50 PM COURIER) P athologist Signature Sodium 141 133 - [...] Volume Laterality 12/05/2007 2:50 PM 8 2:50 COURIER PM COURIER Ej James MD LAB - BLOOD ORDERABLES Performing Organization Address City/[facility]/ZIP Code Phon e Number MISYS Troponin I (12/05/2007 2:50 PM COURIER) P athologist Signature Troponin I ES <0.012 0.000 - MISYS 0.034 ug/L Comment: Note: New test methodology and reference range started on November 07, 2007. Specimen Anatomical Collection Method Collection Time Receive d Time (Source) Location / / Volume Laterality 12/05/2007 2:50 PM 8 2:50 COURIER PM COURIER Ej James MD LAB - BLOOD ORDERABLES Performing Organization Address [facility] Phon e Number MISYS Alcohol ethyl (12/05/2007 2:50 PM COURIER) P athologist Signature Ethanol g/dL <0.01 0.01 g/dL MISYS Specimen Anatomical Collection Method Collection Time Receive d Time (Source) Location / / Volume Laterality 12/05/2007 2:50 PM 8 2:50 COURIER PM COURIER Ej James MD LAB - BLOOD ORDERABLES Performing Organization Address City/[facility]/ZIP Code Phon e Number MISYS documented in this encounter Visit Diagnoses Not on filedocumented in this encounter
--- OUTSIDE RECORDS SUMMARY | 2022-10-19 07:46 | XMS_ITS | Encounter Summary ---
:1960 Author Organization [place] Address [address] [facility] [place] [address] Care Team Providers Name Role Phone Kameron German MD Primary Care Provider Encounter Details Date Type Department Care Team Description 12/06/2007 Historic Results [facility], [address] [place] [address] Social History Tobacco Use Types Packs/Day Years Used Date Smoking Tobacco: Never Assessed Sex Assigned at Date Recorded Not on file documented as of this encounter Plan of Treatment Not on filedocumented as of this encounter Procedures Procedure Name Priority Date/Time Associated Diagnosis Comme nts ECHO CARDIAC - HIM SCAN 12/06/2007 12:00 AM MACHINIST SET UP - ARCHIVE documented in this encounter Results ECHO CARDIAC - HIM SCAN - ARCHIVE (12/06/2007 12:00 AM MACHINIST SET UP) Anatomical Region Laterality Modality Echocardiography Specimen (Source) Anatomical Location Collection Method / Collectio n Time Received Time / Laterality Volume 12/06/2007 Narrative This result has an attachment that is no t available. Provider Scan CV ECHO ORDERABLES documented in this encounter Visit Diagnoses Not on filedocumented in this encounter Care Teams Executor Of Estate Relationship Specialty Start Date End Date Kameron German MD PCP - General Family Practice 10/21/11 12/21/16 [facility] [address] [place] [id number] documented as of this encounter
--- OUTSIDE RECORDS SUMMARY | 2022-10-19 07:46 | XMS_ITS | Encounter Summary ---
:1960 Author Organization [place] Address [facility] [place] [address] Care Team Providers Name Role Phone Kameron German MD Primary Care Provider Encounter Details Date Type Department Care Team Description 12/05/2007 Results Only [facility] Ana Linda MD [facility] [place] Results [address] [place], [place] [phone] (Wo rk) Social History Tobacco Use Types Packs/Day Years Used Date Smoking Tobacco: Never Assessed Sex Assigned at Date Recorded Not on file documented as of this encounter Plan of Treatment Not on filedocumented as of this encounter Procedures Procedure Name Priority Date/Time Associated Comments Diagnosis IR CAROTID CERVICAL Routine 12/05/2007 7:22 PM Re sults for this ANGIOGRAM RIGHT C IRON WORKER procedure ar e in the results section. INT ANGIO ADDITIONAL Routine 12/05/2007 7:22 PM R esults for this SELECTIVE VESSEL C IRON WORKER procedure a re in the results section. INT ANGIO ADDITIONAL Routine 12/05/2007 7:22 PM R esults for this SELECTIVE VESSEL C IRON WORKER procedure a re in the results section. INT ANGIO ADDITIONAL Routine 12/05/2007 7:22 PM R esults for this SELECTIVE VESSEL C IRON WORKER procedure a re in the results section. IR TRANSCATH THERAPY Routine 12/05/2007 7:22 PM R esults for this RT C IRON WORKER procedure are i n the results section. IR ANGIOGRAM THROUGH Routine 12/05/2007 7:22 PM R esults for this CATHETER FOLLOW UP C IRON WORKER procedure are in the results section. IR ANGIOGRAM THROUGH Routine 12/05/2007 7:22 PM R esults for this CATHETER FOLLOW UP C IRON WORKER procedure are in the results section. IR CAROTID CEREBRAL Routine 12/05/2007 7:22 PM Re sults for this ANGIOGRAM RIGHT C IRON WORKER procedure ar e in the results section. documented in this encounter Results INT Embo thrombo recheck (12/05/2007 7:22 PM C IRON WORKER) Anatomical Region Laterality Modality Lower Extremity Other Specimen (Source) Anatomical Collection Method Collection Time Re ceived Time Location / / Volume Laterality 12/05/2007 7:22 PM C IRON WORKER Impressions 08/08/2012 1:18 PM CDT SHASHANK HASTINGS [...] 18-gauge single-wall needle, and a short 9 Hungarian sheath was placed. ??A 5 Hungarian H1 catheter was then advanced in the [...] was then exchanged for the Sofie 9 Hungarian balloon guide cat heter, which was placed [...] INT Embo thrombo recheck (12/05/2007 7:22 PM C IRON WORKER) Anatomical Region Laterality Modality Lower Extremity Other Specimen (Source) Anatomical Collection Method Collection Time Re ceived Time Location / / Volume Laterality 12/05/2007 7:22 PM C IRON WORKER Impressions 08/08/2012 1:18 PM CDT SHASHANK HASTINGS [...] 18-gauge single-wall needle, and a short 9 Hungarian sheath was placed. ??A 5 Hungarian H1 catheter was then advanced in the [...] was then exchanged for the Sofie 9 Hungarian balloon guide cat heter, which was placed [...] INT Transcath therapy rt (12/05/2007 7:22 PM C IRON WORKER) Anatomical Region Laterality Modality Vascular Other Specimen (Source) Anatomical Collection Method Collection Time Re ceived Time Location / / Volume Laterality 12/05/2007 7:22 PM C IRON WORKER Impressions 08/08/2012 1:18 PM CDT SHASHANK HASTINGS [...] 18-gauge single-wall needle, and a short 9 Hungarian sheath was placed. ??A 5 Hungarian H1 catheter was then advanced in the [...] was then exchanged for the Sofie 9 Hungarian balloon guide cat heter, which was placed [...] Fredrick Linda MD IMG IR ORDERABLES INT CUT OFF TENDER GLASS each additional peripheral artery (12/05/2007 7:22 PM C IRON WORKER) Anatomical Region Laterality Modality Vascular Other Specimen (Source) Anatomical Collection Method Collection Time Re ceived Time Location / / Volume Laterality 12/05/2007 7:22 PM C IRON WORKER Impressions 08/08/2012 1:18 PM CDT SHASHANK HASTINGS [...] 18-gauge single-wall needle, and a short 9 Hungarian sheath was placed. ??A 5 Hungarian H1 catheter was then advanced in the [...] was then exchanged for the Sofie 9 Hungarian balloon guide cat heter, which was placed [...] Fredrick Linda MD IMG IR ORDERABLES INT CUT OFF TENDER GLASS each additional peripheral artery (12/05/2007 7:22 PM C IRON WORKER) Anatomical Region Laterality Modality Vascular Other Specimen (Source) Anatomical Collection Method Collection Time Re ceived Time Location / / Volume Laterality 12/05/2007 7:22 PM C IRON WORKER Impressions 08/08/2012 1:18 PM CDT SHASHANK HASTINGS [...] 18-gauge single-wall needle, and a short 9 Hungarian sheath was placed. ??A 5 Hungarian H1 catheter was then advanced in the [...] was then exchanged for the Sofie 9 Hungarian balloon guide cat heter, which was placed [...] Fredrick Linda MD IMG IR ORDERABLES INT CUT OFF TENDER GLASS each additional peripheral artery (12/05/2007 7:22 PM C IRON WORKER) Anatomical Region Laterality Modality Vascular Other Specimen (Source) Anatomical Collection Method Collection Time Re ceived Time Location / / Volume Laterality 12/05/2007 7:22 PM C IRON WORKER Impressions 08/08/2012 1:18 PM CDT SHASHANK HASTINGS [...] 18-gauge single-wall needle, and a short 9 Hungarian sheath was placed. ??A 5 Hungarian H1 catheter was then advanced in the [...] was then exchanged for the Sofie 9 Hungarian balloon guide cat heter, which was placed into the midcervical right internal carotid a rtery. ??Followup right internal carotid angiogram was obtained, and then under roadmap guidance a Sofei 18L microcatheter was a dvanced over a [...] angiogram carotid cervical right (12/05/2007 7:22 PM C IRON WORKER) Anatomical Region Laterality Modality Neck, C-spine, T-spine, Vascular Other Specimen (Source) Anatomical Collection Method Collection Time Re ceived Time Location / / Volume Laterality 12/05/2007 7:22 PM C IRON WORKER Impressions 08/08/2012 1:18 PM CDT SHASHANK HASTINGS [...] 18-gauge single-wall needle, and a short 9 Hungarian sheath was placed. ??A 5 Hungarian H1 catheter was then advanced in the [...] was then exchanged for the Sofie 9 Hungarian balloon guide cat heter, which was placed [...] angiogram carotid cerebral right (12/05/2007 7:22 PM C IRON WORKER) Anatomical Region Laterality Modality Head, Neck, Vascular Other Specimen (Source) Anatomical Collection Method Collection Time Re ceived Time Location / / Volume Laterality 12/05/2007 7:22 PM C IRON WORKER Impressions 08/08/2012 1:18 PM CDT SHASHANK HASTINGS [...] 18-gauge single-wall needle, and a short 9 Hungarian sheath was placed. ??A 5 Hungarian H1 catheter was then advanced in the [...] was then exchanged for the Sofie 9 Hungarian balloon guide cat heter, which was placed [...] on filedocumented in this encounter Care Teams Program Technician Relationship Specialty Start Date End Date Kameron German MD PCP - General Family Practice 10/21/11 12/21/[address] [phone] documented as of this encounter
--- OUTSIDE RECORDS SUMMARY | 2022-10-19 07:46 | XMS_ITS | Encounter Summary ---
:1960 Author Organization [place] Address [address] [place] [address]. [place] [address] Care Team Providers Name Role Phone Unavailable Primary Care Provider Unavailable Encounter Details Date Type Department Care Team Description 12/09/2007 Historic Notes INTERFACED REPORT Interface, Transcript on, Social History Tobacco Use Types Packs/Day Years Used Date Smoking Tobacco: Never Assessed Sex Assigned at Date Recorded Not on file documented as of this encounter Progress Notes Interface, Nursing Faculty - 02/08/2011 4:40 AM CDT Notification - [...] JAMESON MARTINO (RN)[Signed 04:17] Authored: Notification Interface, Nursing Faculty - 02/08/2011 4:40 AM CDT Progress Note [...]
--- OUTSIDE RECORDS SUMMARY | 2022-10-19 07:47 | XMS_ITS | Encounter Summary ---
:1960 Author Organization [place] Address [address] [place] [address]. [place] [address] Care Team Providers Name Role Phone Unavailable Primary Care Provider Unavailable Encounter Details Date Type Department Care Team Description 10/26/2005 Results Only [facility] Kameron Kelly om, MD Hospital Results [address] [phone] (Wo rk) Social History Tobacco Use Types Packs/Day Years Used Date Smoking Tobacco: Never Assessed Sex Assigned at Date Recorded Not on file documented as of this encounter Plan of Treatment Not on filedocumented as of this encounter Procedures Procedure Name Priority Date/Time Associated Diagnosis Comme [facility] CT ABDOMEN W/O Routine 10/26/2005 9:48 AM Resu lts for this CONTRAST DIVISION TRAFFIC SUPERINTENDENT procedure are i n the results section. documented in this encounter Results CT SCAN ABDOMEN (10/26/2005 9:48 AM DIVISION TRAFFIC SUPERINTENDENT) Anatomical Region Laterality Modality Other Specimen (Source) Anatomical Collection Method Collection Time Re ceived Time Location / / Volume Laterality 10/26/2005 9:48 AM DIVISION TRAFFIC SUPERINTENDENT Impressions 10/26/2005 4:49 PM [address] TRAFFIC SUPERINTENDENT CT ABDOMEN WITH IV CONTRAST MATERIAL ? [...]
--- OUTSIDE RECORDS SUMMARY | 2022-10-19 07:47 | XMS_ITS | Encounter Summary ---
:1960 Author Organization [place] Address [address] [place] [address]. [place] [address] Care Team Providers Name Role Phone Unavailable Primary Care Provider Unavailable Encounter Details Date Type Department Care Team Description 02/02/2006 Historic Results INTERFACED REPORT Pravin Reinoso MD [facility] [address] [place], [place] [address] (Wo rk) Social History Tobacco Use Types Packs/Day Years Used Date Smoking Tobacco: Never Assessed Sex Assigned at Date Recorded Not on file documented as of this encounter Plan of Treatment Not on filedocumented as of this encounter Procedures Procedure Name Priority Date/Time Associated Diagnosis Comme nts HISTOPATHOLOGY Routine 02/02/2006 12:00 AM Result s for this HIDE WORKER procedure are i n the results section . documented in this encounter Results Histopathology (02/02/2006 12:00 AM HIDE WORKER) Component Value Ref Test Analysis Performed At [facility] Range Method Time Signature Copath Report CASE: [id number] ^ COPATH Patient Name: SHASHANK HASTINGS MR#: [id number] Specimen #: [id number] Collected: 02/02/2006 Received: 02/02/2006 Reported: 02/03/2006 18:35 [...] gland structures. COLTON/joseph 02-03-06 TESTING LAB LOCATION: [address] ??[id number] COLLECTION SITE: Client: [facility] Location: SDS (R) Specimen (Source) Anatomical Collection Method Collection Time Re ceived Time Location / / Volume Laterality 02/02/2006 02/03/2006 6:35 PM HIDE WORKER Mark Reinoso MD LAB - COPATH SPECIAL DIAG OR DERABLES Performing Organization Address City/State/ZIP Code Phon e Number COPATH documented in this encounter Visit Diagnoses Not on filedocumented in this encounter
--- OUTSIDE RECORDS SUMMARY | 2022-10-19 07:47 | XMS_ITS | Encounter Summary ---
:1960 Author Organization [place] Address [address] [place] [address]. [place] [address] Care Team Providers Name Role Phone Unavailable Primary Care Provider Unavailable Encounter Details Date Type Department Care Team Description 01/13/2006 Historic Results INTERFACED REPORT Vipul Baker [place] [address] (Wo rk) Social History Tobacco Use Types Packs/Day Years Used Date Smoking Tobacco: Never Assessed Sex Assigned at Date Recorded Not on file documented as of this encounter Plan of Treatment Not on filedocumented as of this encounter Procedures Procedure Name Priority Date/Time Associated Diagnosis Comme [facility] HISTOPATHOLOGY Routine 01/13/2006 12:00 AM Result s for this HYDRAULIC ELEVATOR CONSTRUCTOR procedure are i n the results section . documented in this encounter Results Histopathology (01/13/2006 12:00 AM HYDRAULIC ELEVATOR CONSTRUCTOR) Component Value Ref Test Analysis Performed At [facility] Range Method Time Signature Copath CASE: [id number] ^ COPATH Report Patient Name: SHASHANK HASTINGS MR#: [id number] Specimen #: [id number] Collected: 01/13/2006 Received: 01/13/2006 Reported: 01/14/2006 16:50 [...] are seen. MGP/kd 01-14-06 TESTING LAB LOCATION: [address] ??[phone] COLLECTION SITE: Client: [facility] Location: ENDO (R) Specimen (Source) Anatomical Collection Method Collection Time Re ceived Time Location / / Volume Laterality 01/13/2006 01/14/2006 4:50 PM HYDRAULIC ELEVATOR CONSTRUCTOR Vipul Baker MD LAB - COPATH SPECIAL DIAG OR DERABLES Performing Organization Address City/State/ZIP Code Phon e Number COPATH documented in this encounter Visit Diagnoses Not on filedocumented in this encounter
--- OUTSIDE RECORDS SUMMARY | 2022-10-19 07:47 | XMS_ITS | Encounter Summary ---
:1960 Author Organization [place] Address [address] [place] [address]. [place] [address] Care Team Providers Name Role Phone Unavailable Primary Care Provider Unavailable Encounter Details Date Type Department Care Team Description 10/06/[address] [facility] Mango Mayer MD None Endoscopy [place] XX RETIRED XXX [address] [facility] [place] [address] [place] [address] [phone] Social History Tobacco Use Types Packs/Day Years Used Date Smoking Tobacco: Never Assessed Sex Assigned at Date Recorded Not on file documented as of this encounter Plan of Treatment Not on filedocumented as of this encounter Procedures Procedure Name Priority Date/Time Associated Diagnosis Comme [facility] UPPER GI ENDOSCOPY Routine 10/06/2006 9:10 AM Res ults for this OIL AND GAS PRINCIPAL procedure are i n the results section. documented in this encounter Results UPPER GI ENDOSCOPY (10/06/2006 9:10 AM OIL AND GAS PRINCIPAL) Component Value Ref Test Analysis Performed At [facility] Method Time Signature Upper GI Endoscopy RADIOLOGY [...] saturations were monitored ?cont inuously. The [id number]-Q-180 #[id number] was introduced through ?the mouth, and advanced [...] needed. ?- Return to primary care provider [place]. ? R Leyla Kothari Mango Mayer MD Signed Date: 10/06/2006 9:42 AM Number of Addenda: 0 I was physically present for the entire viewing portion of t he exam. Note generated on 10/06/2006 9:08 AM Upper GI RADIOLOGY Endoscopy RESULTS Specimen (Source) Anatomical Collection Method Collection Time Re ceived Time Location / / Volume Laterality 10/06/2006 9:10 AM OIL AND GAS PRINCIPAL Mango Mayer MD PROCEDURES Performing Organization Address City/State/ZIP Code Phon e Number RADIOLOGY RESULTS documented in this encounter Visit Diagnoses Not on filedocumented in this encounter
--- OUTSIDE RECORDS SUMMARY | 2022-10-19 07:47 | XMS_ITS | Encounter Summary ---
:1960 Author Organization [place] Address [address] [place] [address]. [place] [address] Care Team Providers Name Role Phone Unavailable Primary Care Provider Unavailable Encounter Details Date Type Department Care Team Description 11/16/2006 Results Only [facility] Chinyere Mayer MD Hospital [place] [address] (Wo rk) Social History Tobacco Use Types Packs/Day Years Used Date Smoking Tobacco: Never Assessed Sex Assigned at Date Recorded Not on file documented as of this encounter Plan of Treatment Not on filedocumented as of this encounter Procedures Procedure Name Priority Date/Time Associated Diagnosis Comme [facility] [place] CT ABDOMEN W/O Routine 11/16/2006 7:42 AM Resu lts for this CONTRAST CLINICAL RESEARCH MANAGER procedure are i n the results section. documented in this encounter Results CT SCAN ABDOMEN (11/16/2006 7:42 AM CLINICAL RESEARCH MANAGER) Anatomical Region Laterality Modality Other Specimen (Source) Anatomical Collection Method Collection Time Re ceived Time Location / / Volume Laterality 11/16/2006 7:42 AM CLINICAL RESEARCH MANAGER Impressions 11/16/2006 9:05 AM CLINICAL RESEARCH MANAGER History: ?Left lower quadrant pain. Previous splenectomy. [...]
--- OUTSIDE RECORDS SUMMARY | 2022-10-19 07:47 | XMS_ITS | Encounter Summary ---
:1960 Author Organization [place] Address [address] [place] [address]. [place] [address] Care Team Providers Name Role Phone Unavailable Primary Care Provider Unavailable Encounter Details Date Type Department Care Team Description 11/09/2005 Results Only [facility] Kameron Kelly om, MD Hospital Results [address] [address] (Wo rk) Social History Tobacco Use Types Packs/Day Years Used Date Smoking Tobacco: Never Assessed Sex Assigned at Date Recorded Not on file documented as of this encounter Plan of Treatment Not on filedocumented as of this encounter Procedures Procedure Name Priority Date/Time Associated Diagnosis Comme nts LIVER SPECT SCAN Routine 11/09/2005 9:54 AM Re sults for this CLAY STAIN MIXER procedure are i n the results section. LIVER & SPLEEN Routine 11/09/2005 8:07 AM Resu lts for this SCAN, STATIC ONLY CLAY STAIN MIXER procedure are in the results section. documented in this encounter Results LIVER IMAGING (SPECT) (11/09/2005 9:54 AM CLAY STAIN MIXER) Anatomical Region Laterality Modality Other Specimen (Source) Anatomical Collection Method Collection Time Re ceived Time Location / / Volume Laterality 11/09/2005 9:54 AM CLAY STAIN MIXER Impressions 11/09/2005 3:13 PM CLAY STAIN MIXER NUCLEAR MEDICINE LIVER SPECT - 5 ?? [...] LIVER AND SPLEEN IMAGING (11/09/2005 8:07 AM CLAY STAIN MIXER) Anatomical Region Laterality Modality Other Specimen (Source) Anatomical Collection Method Collection Time Re ceived Time Location / / Volume Laterality 11/09/2005 8:07 AM CLAY STAIN MIXER Impressions 11/09/2005 3:13 PM CLAY STAIN MIXER NUCLEAR MEDICINE LIVER SPECT - 5 ?? [...]
--- OUTSIDE RECORDS SUMMARY | 2022-10-19 07:47 | XMS_ITS | Encounter Summary ---
:1960 Author Organization [place] Address [address] [place] [address]. [place] [address] Care Team Providers Name Role Phone Unavailable Primary Care Provider Unavailable Encounter Details Date Type Department Care Team Description 12/05/[address] [facility] Golden White , [facility] Results [facility] [place] [address] [facility] [place] [address] (Wo rk) Social History Tobacco Use Types Packs/Day Years Used Date Smoking Tobacco: Never Assessed Sex Assigned at Date Recorded Not on file documented as of this encounter Plan of Treatment Not on filedocumented as of this encounter Procedures Procedure Name Priority Date/Time Associated Diagnosis Comme nts HC CT HEAD WO Routine 12/05/2007 7:13 PM Results for this CONTRAST UM RN procedure are i n the results section. documented in this encounter Results CT SCAN HEAD/BRAIN (12/05/2007 7:13 PM UM RN) Anatomical Region Laterality Modality Other Specimen (Source) Anatomical Collection Method Collection Time Re ceived Time Location / / Volume Laterality 12/05/2007 7:13 PM UM RN Impressions 12/05/2007 7:51 PM UM RN EXAM: ??CT HEAD W/O CONTRAST* ??Dec 05, [...]
--- OUTSIDE RECORDS SUMMARY | 2022-10-19 07:47 | XMS_ITS | Encounter Summary ---
:1960 Author Organization [place] Address Replaced by [facility] [place] [address] Care Team Providers Name Role Phone Unavailable Primary Care Provider Unavailable Encounter Details Date Type Department Care Team Description 12/05/2007 Consultation [facility] Jeremy Laughlin in [place] MD Medicine [address] [facility] [place] [phone] [place] [address] [phone] (Wo rk) Social History Tobacco Use Types Packs/Day Years Used Date Smoking Tobacco: Never Assessed Sex Assigned at Date Recorded Not on file documented as of this encounter Progress Notes Monique Laughlin MD - 12/07/2007 2:50 PM SALVAGE ENGINEERING TECHNICIAN FINAL NEUROLOGY CONSULTATION REFERRING PHYSICIAN: Dr. Ej James of the emergency room at [facility] REASON FOR REFERRAL: Stroke. HISTORY OF PRESENT ILLNESS: Shashank Hastings is a 47-year-old gentleman who was earlier today at work. 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 He had sudden onset [...] was unremarkable. A CT angiogram of the rosebud of [place] was expeditiously obtained. This revealed [...] As mentioned above, he works as a valve technician, overuses alcohol and quit smoking in 2004. [...] light touch and vibration are felt equally edol-lq-ntdl but the patient does report that earlier he was touching his left side with his right side and could not feel it. Uufwwi-rjiz-ixugtq is slow and somewhat dysmetric on the left. Rtto-rkpj-uwop appears to be pretty good bilaterally although [...] MD MT: AD Name: SHASHANK HASTINGS Account: [id number] : 1960 Consult Date: 12/05/2007 Document: [id number] cc: Fredrick Linda MD AGE ENGINEERING TECHNICIAN documented in this encounter Plan of Treatment Not on filedocumented as of this encounter Visit Diagnoses Not on filedocumented in this encounter
--- OUTSIDE RECORDS SUMMARY | 2022-10-19 07:47 | XMS_ITS | Encounter Summary ---
:1960 Author Organization [place] Address [facility] [place] [address] Care Team Providers Name Role Phone Unavailable Primary Care Provider Unavailable Encounter Details Date Type Department Care Team Description 02/02/2006 Operative Report Tristan Lopez MD (Director Commercial Sales) [facility] [address] [place], [place] [address] (Wo rk) Social History Tobacco Use Types Packs/Day Years Used Date Smoking Tobacco: Never Assessed Sex Assigned at Date Recorded Not on file documented as of this encounter Progress Notes Mark Lopez - 02/03/2006 9:15 AM ROLL OUT MANAGER PRELIMINARY PREOPERATIVE DIAGNOSIS: Right palm soft tissue [...] A transverse incision was thenmade, and a Rusk blade was then used to dissect along [...] MD MT: JOSESITO#[id number] Name: SHASHANK HASTINGS Account: [id number] : 1960 Procedure Date: 02/02/2006 Document: [id number] OUT MANAGER documented in this encounter Plan of Treatment Not on filedocumented as of this encounter Visit Diagnoses Not on filedocumented in this encounter
--- OUTSIDE RECORDS SUMMARY | 2022-10-19 07:47 | XMS_ITS | Encounter Summary ---
:1960 Author Organization [place] Address [address] [place] [address]. [place] [address] Care Team Providers Name Role Phone Unavailable Primary Care Provider Unavailable Encounter Details Date Type Department Care Team Description 05/07/2006 Historic Results INTERFACED REPORT Harlan German MD [address] [phone] (Wo rk) Social History [...] Component Value Ref Test Analysis Performed At [facility] Range Method Time Signature Specimen Throat MISYS Description Micro Report FINAL [id number] MISYS Status Rapid Strep A NEGATIVE: No MISYS Screen Group A streptococcal antigen detected by immunoassay, await Comment: culture report. Specimen Anatomical Collection Method Collection Time Receive d Time (Source) Location / / Volume Laterality 05/07/2006 9:20 AM 6 9:20 CDT AM CDT Anton Gonzalez MD LAB - MICRO GENERAL ORDERABL ES Performing Organization Address City/[facility]/ZIP Code Phon e Number MISYS Beta strep group A culture (05/07/2006 9:20 AM CDT) Component Value Ref Test Analysis Performed At [facility] Range Method Time Signature Specimen Throat MISYS Description Culture Micro No beta MISYS hemolytic Streptococcus Group A isolated Micro Report FINAL [id number] MISYS Status Specimen Anatomical Collection Method Collection Time Receive d Time (Source) Location / / Volume Laterality 05/07/2006 9:20 AM 6 9:43 CDT AM CDT Kameron German MD LAB - MICRO GENERAL ORDERABL ES Performing Organization Address [facility] Phon e Number MISYS WBC and differential (05/07/2006 8:30 AM CDT) [facility] Method Time Signature WBC 10.6 4.0 [...] LAB - BLOOD ORDERABLES Performing Organization Address City/[facility]/ZIP Code Phon e Number MISYS documented in this encounter Visit Diagnoses Not on filedocumented in this encounter
--- OUTSIDE RECORDS SUMMARY | 2022-10-19 07:47 | XMS_ITS | Encounter Summary ---
:1960 Author Organization [place] Address [address] [place] [address]. [place] [address] Care Team Providers Name Role Phone Unavailable Primary Care Provider Unavailable Encounter Details Date Type Department Care Team Description 01/13/[address] [facility] Mango Mayer MD None Endoscopy [place] XX RETIRED XXX [address] [place] [address] [place] [address] [phone] Social History Tobacco Use Types Packs/Day Years Used Date Smoking Tobacco: Never Assessed Sex Assigned at Date Recorded Not on file documented as of this encounter Plan of Treatment Not on filedocumented as of this encounter Procedures Procedure Name Priority Date/Time Associated Diagnosis Comme nts COLONOSCOPY Routine 01/13/2006 9:15 AM Results f or this FORM CARPENTER procedure are i n the results section . documented in this encounter Results COLONOSCOPY (01/13/2006 9:15 AM FORM CARPENTER) [facility] Time Signature COLONOSCOPY Endoscopy RADIOLOGY RESULTS [...] oxygen saturations were monitored ?cont inuously. The [id number] #[id number] was introduced through ?the anus and advanced [...] yrs. ?- Return to primary care provider [place]. ? CPT Code(s): ?04535, Colonoscopy, flexible, proxim al to splenic flexure; ?with removal of tumor(s), polyp(s), or other lesion(s) by hot ?biopsy forceps or bipolar cautery ICD Code(s): ?211.3, Benign Neoplasm of Colon ?789.04, Abdominal Pain, Left Lower Q uadrant The codes documented in this report are prelimin shon and upon shoulder boner review may be revised to meet current [...] / / Volume Laterality 01/13/2006 9:15 AM FORM CARPENTER Mango Mayer MD PROCEDURES Performing Organization Address City/State/ZIP Code Phon e Number RADIOLOGY RESULTS documented in this encounter Visit Diagnoses Not on filedocumented in this encounter
--- OUTSIDE RECORDS SUMMARY | 2022-10-19 07:47 | XMS_ITS | Encounter Summary ---
:1960 Author Organization [place] Address [facility] [place] [address] Care Team Providers Name Role Phone Unavailable Primary Care Provider Unavailable Encounter Details Date Type Department Care Team Description 10/22/2007 Emergency room Anton Gonzalez [place] [address] Social History Tobacco Use Types Packs/Day Years Used Date Smoking Tobacco: Never Assessed Sex Assigned at Date Recorded Not on file documented as of this encounter Progress Notes Interface, Automotive Refinisher - 10/31/2007 3:34 PM DIRECTOR OF ACQUISITIONS FINAL CHIEF COMPLAINT: Evaluate left hand injury. [...] MD MT: JOSESITO#[id number] Name: SHASHANK HASTINGS Account: [id number] : 1960 Visit Date: 10/22/2007 Document: [id number] CTOR OF ACQUISITIONS documented in this encounter Plan of Treatment Not on filedocumented as of this encounter Visit Diagnoses Not on filedocumented in this encounter
--- OUTSIDE RECORDS SUMMARY | 2022-10-19 07:47 | XMS_ITS | Encounter Summary ---
:1960 Author Organization [place] Address [facility] [place] [address] Care Team Providers Name Role Phone Unavailable Primary Care Provider Unavailable Encounter Details Date Type Department Care Team Description 12/05/2007 Emergency room Zechariah James MD EMERGENCY PHYSIC [place] [address] (Wo rk) Social History Tobacco Use Types Packs/Day Years Used Date Smoking Tobacco: Never Assessed Sex Assigned at Date Recorded Not on file documented as of this encounter Progress Notes Zechariah James - 12/07/2007 7:39 AM EXCAVATOR OPERATOR FINAL CHIEF COMPLAINT: Left-sided weakness and confusion. [...] intact to light touch throughout and vibration. Penp-eu-naor appears to be normal. He does have [...] saw him immediately. He was connected to teletypesetter monitor and pulse oximetry monitor and oxygen. [...] MD MT: arnie Name: SHASHANK HASTINGS Account: [id number] : 1960 Visit Date: 12/05/2007 Document: [id number] cc: Primary VATOR OPERATOR documented in this encounter Plan of Treatment Not on filedocumented as of this encounter Visit Diagnoses Not on filedocumented in this encounter
--- OUTSIDE RECORDS SUMMARY | 2022-10-19 07:47 | XMS_ITS | Encounter Summary ---
:1960 Author Organization [place] Address [facility] [place] [address] Care Team Providers Name Role Phone Unavailable Primary Care Provider Unavailable Encounter Details Date Type Department Care Team Description 02/01/2004 Emergency room Shashank Mercado MD EMERGENCY PHYSIC [place] [address] [place], [place] [address] (Wo rk) Social History Tobacco Use Types Packs/Day Years Used Date Smoking Tobacco: Never Assessed Sex Assigned at Date Recorded Not on file documented as of this encounter ED Notes Shashank Mercado - 02/01/2004 12:00 AM PHOTO JOURNALIST : 56 CHIEF COMPLAINT: Foreign body in [...] swallows. [id number]_ SHASHANK MERCADO MD MT: Document: [id number] [place], [place] Name: SHASHANK HASTINGS EMERGENCY ROOM ENCOUNTER Page 2 of 2 LCN: SHAYNE DSC: 02/01/2004 [place], [place] Name: MR#: : Admit Date: BIBISHASHANK Reggie -40 1960 02/01/2004 Doctor: SHASHANK MERCADO MD EMERGENCY ROOM ENCOUNTER Page 1 of 2 O JOURNALIST documented in this encounter Plan of Treatment Not on filedocumented as of this encounter Visit Diagnoses Not on filedocumented in this encounter
--- OUTSIDE RECORDS SUMMARY | 2022-10-19 07:47 | XMS_ITS | Encounter Summary ---
:1960 Author Organization [place] Address [address] [place] [address]. [place] [address] Care Team Providers Name Role Phone Unavailable Primary Care Provider Unavailable Encounter Details Date Type Department Care Team Description 12/16/2006 [facility] Results MD SURGICAL CONSULT [address]ISITO [address] [address] [facility] [address] [place] [address] Social History Tobacco Use Types Packs/Day Years Used Date Smoking Tobacco: Never Assessed Sex Assigned at Date Recorded Not on file documented as of this encounter Plan of Treatment Not on filedocumented as of this encounter Procedures Procedure Name Priority Date/Time Associated Diagnosis Comme [facility] UPPER GI & SMALL Routine 12/16/2006 9:28 AM Re sults for this INTESTINE LATHE WINDER procedure are i n the results section. documented in this encounter Results XRAY UPPER GI TRACT + SBS (12/16/2006 9:28 AM LATHE WINDER) Anatomical Region Laterality Modality Other Specimen (Source) Anatomical Collection Method Collection Time Re ceived Time Location / / Volume Laterality 12/16/2006 9:28 AM LATHE WINDER Impressions 12/16/2006 4:21 PM LATHE WINDER Exam: ??UGI SMALL BOWEL ??Dec 16, 2006 9 :28:00 AM History: ??Left upper quadrant abdominal pain, nausea and vomiting. Rule out possible obstruction. Findings: Upper GI: Small sliding hiatal hernia. Esophagus o therwise appears normal. Stomach, duodenal bulb, and duodenal swe ep appear normal. No demonstrable gastroesophageal reflux. Conclusion: ??Small sliding hiatal herni a, otherwise normal upper GI. Small bowel follow-through: ??Barium tra verses small bowel in approximately 20 minutes. Small bowel pa ttern appears normal throughout. Spot films of terminal ileum appear normal. Conclusion: ??Normal small bowel follow- through. Toni Sanchez MD SPECIAL IMAGING STUDIES documented in this encounter Visit Diagnoses Not on filedocumented in this encounter
--- OUTSIDE RECORDS SUMMARY | 2022-10-19 07:47 | XMS_ITS | Encounter Summary ---
:1960 Author Organization [place] Address [facility] [place] [address] Care Team Providers Name Role Phone Unavailable Primary Care Provider Unavailable Encounter Details Date Type Department Care Team Description 01/29/2005 Operative Report Tristan Lopez MD (Brine Plant Operator) [facility] [address] [place], [place] [address] (Wo rk) Social History Tobacco Use Types Packs/Day Years Used Date Smoking Tobacco: Never Assessed Sex Assigned at Date Recorded Not on file documented as of this encounter Progress Notes Mark Lopez - 01/29/2005 11:59 PM HARBORMASTER : 1st ASS'T: 2nd ASS'T: PRE-OPERATIVE DIAGNOSIS: [...] and nodule. Dissection then proceeded with a Bath blade proximally and distally. The cord was identified extending proximally to the transverse carpal ligament distal margin. This was dissected to its extent. It was then released using Bath blades from the underlying thermal tissues distally [...] condition. [id number]_ MARK LOPEZ MD MT: Document: [id number] [place], [place] Name: MR#: SHASHANK HASTINGS [id number] OPERATIVE REPORT Page 2 of 2 LCN: SDS DSC: 01/29/2005 [place], [place] Name: MR#: SHASHANK HASTINGS -42 : Procedure Date: Account #: 1960 01/29/2005 [id number] Doctor: MARK LOPEZ MD OPERATIVE REPORT Page 1 of 2 ORMASTER documented in this encounter Plan of Treatment Not on filedocumented as of this encounter Visit Diagnoses Not on filedocumented in this encounter
--- OUTSIDE RECORDS SUMMARY | 2022-10-19 07:47 | XMS_ITS | Encounter Summary ---
:1960 Author Organization [place] Address [address] [place] [address]. [place] [address] Care Team Providers Name Role Phone Unavailable Primary Care Provider Unavailable Encounter Details Date Type Department Care Team Description 10/22/2007 Results Only [facility] Monico osborn, Zak Briones MD Hospital Results EMERGENCY PHYSI [place] [address] [place], [place] [address] (Wo rk) Social History Tobacco Use Types Packs/Day Years Used Date Smoking Tobacco: Never Assessed Sex Assigned at Date Recorded Not on file documented as of this encounter Plan of Treatment Not on filedocumented as of this encounter Procedures Procedure Name Priority Date/Time Associated Diagnosis Comme [facility] LT X-RAY HAND Routine 10/22/2007 8:47 AM Resu lts for this 3+ VW PASTA MAKER procedure are i n the results section. documented in this encounter Results LT X-RAY HAND 3+ VW (10/22/2007 8:47 AM PASTA MAKER) Anatomical Region Laterality Modality Other Specimen (Source) Anatomical Collection Method Collection Time Re ceived Time Location / / Volume Laterality 10/22/2007 8:47 AM PASTA MAKER Impressions 10/22/2007 9:13 AM PASTA MAKER EXAM: ??HAND G/E 3 VIEWS LEFT* HISTORY: ??Injury. FINDINGS: Swelling of the left hand. Exa m otherwise negative. Zak Meyer MD GENERAL IMAGING documented in this encounter Visit Diagnoses Not on filedocumented in this encounter
--- OUTSIDE RECORDS SUMMARY | 2022-10-19 07:47 | XMS_ITS | Encounter Summary ---
:1960 Author Organization [place] Address [facility] [place] [address] Care Team Providers Name Role Phone Unavailable Primary Care Provider Unavailable Encounter Details Date Type Department Care Team Description 05/07/2006 Emergency room Anton Gonzalez [place] [address] Social History Tobacco Use Types Packs/Day Years Used Date Smoking Tobacco: Never Assessed Sex Assigned at Date Recorded Not on file documented as of this encounter Progress Notes Interface, Scouring Train Operator Chief - 05/11/2006 6:52 PM CDT FINAL CHIEF [...] work. He describes no medication change and/or pqvk-iaf-wcbnnzv medication use. He has not had generalized [...] JOSESITO#[id number] Name: SHASHANK HASTINGS MRN: -[id number] Account: [id number] : 1960 Visit Date: 05/07/2006 Document: [id number] Interface, Scouring Train Operator Chief - 05/09/2006 9:49 AM CDT PRELIMINARY CHIEF [...] work. He describes no medication change and/or rllw-ety-jqiiyxf medication use. He has not had generalized [...] JOSESITO#[id number] Name: SHASHANK HASTINGS MRN: -[id number] Account: [id number] : 1960 Visit Date: 05/07/2006 Document: [id number] documented in this encounter Plan of Treatment Not on filedocumented as of this encounter Visit Diagnoses Not on filedocumented in this encounter
--- OUTSIDE RECORDS SUMMARY | 2022-10-19 07:47 | XMS_ITS | Encounter Summary ---
:1960 Author Organization [place] Address [address] [place] [address]. [place] [address] Care Team Providers Name Role Phone Unavailable Primary Care Provider Unavailable Encounter Details Date Type Department Care Team Description 09/15/2007 [facility] Results [address] [address] (Wo rk) Social History Tobacco Use Types Packs/Day Years Used Date Smoking Tobacco: Never Assessed Sex Assigned at Date Recorded Not on file documented as of this encounter Plan of Treatment Not on filedocumented as of this encounter Procedures Procedure Name Priority Date/Time Associated Diagnosis Comme [facility] CT ABDOMEN W/O Routine 09/15/2007 8:51 AM [...]
--- OUTSIDE RECORDS SUMMARY | 2022-10-19 07:47 | XMS_ITS | Encounter Summary ---
:1960 Author Organization [place] Address [address] [place] [address]. [place] [address] Care Team Providers Name Role Phone Unavailable Primary Care Provider Unavailable Encounter Details Date Type Department Care Team Description 05/07/2006 Results Only [facility] Anton Gonzalez, Hospital Results [place] [address] Social History Tobacco Use Types Packs/Day Years [...]
--- OUTSIDE RECORDS SUMMARY | 2022-10-19 07:47 | XMS_ITS | Encounter Summary ---
:1960 Author Organization [facility] Address [address] [place] [address]. [place] [address] Care Team Providers Name Role Phone Unavailable Primary Care Provider Unavailable Encounter Details Date Type Department Care Team Description 01/29/2005 Historic Results INTERFACED REPORT Pravin Reinoso MD [facility] [address] [place], [place] [address] (Wo rk) Social History Tobacco Use Types Packs/Day Years Used Date Smoking Tobacco: Never Assessed Sex Assigned at Date Recorded Not on file documented as of this encounter Plan of Treatment Not on filedocumented as of this encounter Procedures Procedure Name Priority Date/Time Associated Diagnosis Comme nts HISTOPATHOLOGY Routine 01/29/2005 12:00 AM Result s for this CIDER PRESS OPERATOR procedure are i n the results section . documented in this encounter Results Histopathology (01/29/2005 12:00 AM CIDER PRESS OPERATOR) Component Value Ref Test Analysis Performed At [facility] Range Method Time Signature Copath Report CASE: [id number] ^ COPATH MR#: [id number] Patient Name: SHASHANK HASTINGS. Collected: 01/29/2005 Received: [...] / Volume Laterality 01/29/2005 02/01/2005 5:24 PM CIDER PRESS OPERATOR Mark Reinoso MD LAB - COPATH SPECIAL DIAG OR DERABLES Performing Organization Address City/State/ZIP Code Phon e Number COPATH documented in this encounter Visit Diagnoses Not on filedocumented in this encounter
--- OUTSIDE RECORDS SUMMARY | 2022-10-19 07:48 | XMS_ITS | Encounter Summary ---
:1960 Author Organization [employer] [facility] Address [address] [place] [address] Care Team Providers Name Role Phone Lucero Fraire MD Primary Care Provider Encounter Details Date Type Department Care Team Description 08/08/2017 Anesthesia Event [facility] Nitin Funk MD [address] [place], [place] [id number] 8100 [facility] Candie Gonzalez MD [address] [place], [place] [id number] [place], [place] [address] Anesthesia Record Procedure Summary Procedure Name Responsible Anesthesia Start Anesthesia Stop Time Anesthesiologist Time LEFT tibia and Nitin Funk MD 08/08/17 1204 08/08/17 13 02 fibula hardware removal (Left: Leg) Events Date Time Event Comment 08/08/2017 0935 IV plmt Maria Isabel Yeboah APRN, DEADENER 0940 IV Plmt Comp IV was placed in Preop area by Maria Isabel Yeboah APRN, DEADENER for a dministration of IV fluids, IV antibiotics, and IV pre-op sedation. Patient was continuously mon itored by Maria Isabel Yeboah APRN, DEADENER during the placement. 1204 An Start 1206 [...] by 08/08/17 1255 b y 08/08/17; Placement Jonh Dodson, Chun Dodson, Time: 1212; Placed By: SHERRY CHIN APRN, CRN A CRNA; Induction Type: Pre-O2, IV; Size (mm): 5; Difficulty: Atraumatic; Removal Date: 08/08/17; Removal Time: 1255; Transferred with Oxygen: Yes Incision/Surgical 08/08/17; 1226; #1; 08/08/17 1226 by 08/22/17 1502 by [facility] No; Leg; Left; Kala Diaz, Discontinue 08/22/17; [...] Patient tolerated procedure well. Electronically signed by: iNtin Funk MD 08/08/2017 2:24 PM Anesthesia Preprocedure [...] mL/hr documented in this encounter Care Teams Gear Changer Relationship Specialty Start Date End Date Lucero Fraire MD PCP - General 12/03/[address] [place] [address] documented as of this encounter
--- OUTSIDE RECORDS SUMMARY | 2022-10-19 07:48 | XMS_ITS | Encounter Summary ---
:1960 [facility] Address [address], [place] [address] Care Team Providers Name Role Phone Lucero Fraire MD Primary Care Provider Reason for Referral Therapies (Routine) - Closed Specialty Diagnoses / Procedures Referred By Contact Refer red To Contact Diagnoses Acute pain of left knee Shantell Garcia APRN, CNP [address] [address] Referral ID Status Reason Start Date Expiration Date Visits Requ ested Visits Authorized [id number] Closed 08/22/2017 10/21/2017 1 1 Scheduling Instructions Your provider has recommended an appoint ment with [facility]. You may call [phone] to schedule your appoi ntment. If you do not schedule an appointment within the next 1 to 3 business days, we will call you to help arrange your appointment. We suggest you call your [employer] insurance company about your coverage and benefits for this appointment. Procedure/Equipment (Routine) - Incomplete Specialty Diagnoses / Procedures Referred By Contact Refer red To Contact Diagnoses Acute pain of left knee Shantell Garcia APRN, CNP Procedures XR Knee Lt 2 Views [address] [address] Referral ID Status Reason Start Date Expiration Date Visits V isits Requested Authorized [id number] Incomplete 08/22/2017 11/21/2018 1 1 Reason for Visit Reason Comments Knee Pain or Injury recheck left knee Encounter Details Date Type Department Care Team Description 08/22/2017 Office Visit [facility] Shantell Garcia, Acute pain of left [facility]ENTER ISIDRO CHIN knee (Primary Dx) [address] [facility] [address] [facility] [address] [address] [address] [phone] (Wo rk) Social History Tobacco Use Types Packs/Day Years Used Date Smoking Tobacco: Former Smokeless Tobacco: Never Comments: Quit smoking: Alcohol Use Standard Drinks/Week Comments No 0 (1 standard drink = 0.6 oz pure alcoho l) Sex Assigned at Date Recorded Not on file documented as of this encounter Patient Instructions Patient InstructionsStKiley castañeda - 08/22/2017 11:00 AM CDT Shantell Garcia RN RAIL TRACK LAYER Nurse Practitioner Right Of Way Maintenance Supervisor: Faustina Oquendo Please contact Jane for all surgery scheduling and administrative questions at [phone] Please contact Nurse Triage for all medical related questions at [phone] Medication Requests: Prescriptions are not filled on Weekends or on Weekdays after 3:00PM For all medication refills: Request a refill using MyChart or contact your Pharmacy documented in this encounter Plan of Treatment Scheduled Referrals Name Type Priority Associated Diagnoses Order S [facility] Physical Therapy Referral Routine Acute pain of [...] joint effusion. Minimal patellar spurring. Shantell Garcia ASSOCIATE PROPERTY MANAGER, RAIL TRACK LAYER RAD GD documented in this encounter Visit Diagnoses Diagnosis Acute pain of left knee - Primary Acute pain of left knee documented in this encounter Care Teams Sock Lining Examiner Relationship Specialty Start Date End Date Lucero Fraire MD PCP - General 12/03/15 [address] [place] [address] documented as of this encounter
--- OUTSIDE RECORDS SUMMARY | 2022-10-19 07:48 | XMS_ITS | Encounter Summary ---
:1960 Author Organization [facility] Address [address], [place] [address] Care Team Providers Name Role Phone Lucero Fraire MD Primary Care Provider Reason for Visit Procedure/Equipment (Routine) - Incomplete Specialty Diagnoses / Procedures Referred By Contact Refer red To Contact Diagnoses Acute pain of left knee Shantell Garcia, GIUSEPPE, PANTOGRAPH WATCHER Procedures XR Knee Lt 2 Views [address] [facility] [place], [place] [address] Referral ID Status Reason Start Date Expiration Date Visits V isits Requested Authorized [id number] Incomplete 08/22/2017 11/21/2018 1 1 Encounter Details Date Type Department Care Team Description 08/22/2017 Imaging [facility] Shantell Garcia, Acute pain of left knee [address] [facility] JUNIOR FINANCIAL ANALYST, PANTOGRAPH WATCHER [place], [place] [address] [address] [facility] [phone] [place] [address] (Wo rk) Social History Tobacco Use Types [...] joint effusion. Minimal patellar spurring. Shantell Garcia JUNIOR FINANCIAL ANALYST, PANTOGRAPH WATCHER RAD GD documented in this encounter Visit Diagnoses Diagnosis Acute pain of left knee documented in this encounter Care Teams Morning Show Producer Relationship Specialty Start Date End Date Lucero Fraire MD PCP - General 12/03/15 [address] [place] [address] documented as of this encounter
--- OUTSIDE RECORDS SUMMARY | 2022-10-19 07:48 | XMS_ITS | Clinical Summary ---
:1960 Author Organization [facility] Address [address], [place] [address] Care Team Providers Name Role Phone Lucero [...] for each transition of care or referral. [facility] Allergies No known active allergies Medications Medication [...] this topic Medical Devices Implanted Type Area Seal Skinner Device Shelf Model / Serial Identifier Expiration / Lot Date Washer Lg Scr 13.0mm Od - [id number] DEVICE Left: [employer] [id number] / Implanted: Qty: 2 on 09/27/2016 by Kameron Morales MD at [facility] LEG 0 / 0 Insurance Payer Benefit Plan / Subscriber ID Effective Phone Address T ype Group Dates [place]PLOY[place] [id number] 2015-Pre [address] Workers Comp MUTUAL MUTUAL [place] [address] [place] [id number] 2017-Pres [address] [id number] [place] [address] Darling, Personal/Famil Self 1960 [id number] [phone] [place] (Work) [address] Darling, Personal/Famil Self 1960 [id number] [phone] [employer] (Work) [phone] [id number], Workers Comp Employer 1960 [id number] [phone] [employer] (Work) [address] [id number], Workers Comp Employer 1960 [id number] ([address] [phone] [place] [employer] (Work) [address] Advance Directives Latest Code Status on File Code Status Date Activated Date Inactivated Comments Full Code 08/08/2017 1:07 PM 08/08/2017 5:07 PM Full code in effect for 30 days Code Status History Code Status Date Activated Date Inactivated Comments Full Code 09/27/2016 10:03 AM 09/27/2016 1:23 PM Full code i n effect for 30 days Care Teams Property Claims Manager Relationship Specialty Start Date End Date Lucero Fraire MD PCP - General 12/03/15 [address] [place] [address]
--- OUTSIDE RECORDS SUMMARY | 2022-10-19 07:48 | XMS_ITS | Encounter Summary ---
:1960 Author Organization [facility] Address [address] [place] [address] Care Team Providers Name Role Phone Lucero Fraire MD Primary Care Provider Encounter Details Date Type Department Care Team Description 08/08/2017 Surgery [facility] Kameron Morales MD LEFT tibia and fibula [address] [facility] Driv e [address] [facility] [address] hardware removal [place], [place] [address] [place], [place] [phone] (Wo rk) Social History Tobacco Use Types [...] 12:00 PM CDT NAME: SHASHANK HASTINGS MR#: [id number] CSN: [id number] AUTHENTICATING CLINICIAN: Kameron Morales MD CONFIRM #: [id number] LOC: 725 OPERATIVE REPORT DATE OF OPERATION: 08/08/2017 : 1960 SURGEON: Kameron Morales MD SUPERVISOR PRECISION OPTICAL ELEMENTS: Roberto Beltrán PA-C. It was medically necessary for a physician certified surgical first assistant to assist in the surgical care of this patient.There was no resident physician available for assistance. PREOPERATIVE DIAGNOSIS: Retained hardware, left knee. POSTOPERATIVE DIAGNOSIS: Retained hardware, left knee. PROCEDURE PERFORMED: Removal of 2 screws and 2 washers left upper tibia. PROCEDURE: Under general anesthesia in the supine position, the left knee was prepped and draped in the usual sterile fashion. A [id number]-[id number]-cause occurred and all present were in agreement. [...] to the knee. MTD: C: R:08/08/17 15:08 CONFIRM#:[id number] M BONE PRESS TENDER documented in this encounter Miscellaneous Notes OR [...] PM CDT 50 mcg 25-50 mcg, Intravenous, [id number], Other, Moderate to Severe Pain (pain score [...] Provider: Anisa Min, DESTIN) 25-50 mcg, Intravenous, [id number], Other, Moderate to Severe Pain (pain score [...] (DEMEROL) injection 12.5 mg 12.5 mg, Intravenous, [id number], Shiverin g, Starting Tue08/08/17 at 0944, For 2 doses, Maximum cumulative dose is 25 mg. Do not give to patients receiving MAO inhibitors (e.g. phenelzine (NARDIL), tranyl cypromine (PARNATE), selegiline (ELDEPRYL))., PACU/Recovery morphine injectable 1-3 mg 1-3 mg, Intravenous, [id number], Other, Mo derate to Severe Pain (pain [...] Post-op documented in this encounter Care Teams Supervisor Salvage Relationship Specialty Start Date End Date Lucero Fraire MD PCP - General 12/03/15 [address] [place] [address] documented as of this encounter
--- OUTSIDE RECORDS SUMMARY | 2022-10-19 07:49 | XMS_ITS | Encounter Summary ---
:1960 Author Organization [employer] Address [address], [place] [address] Care Team Providers Name Role Phone Lucero Fraire MD Primary Care Provider Encounter Details Date Type Department Care Team Description 09/27/2016 Hospital Encounter [facility] Kameron Morales MD 8[address] [facility] 8[address] [facility] [place], [place] [address] [place], [place] [phone] (Wo rk) Social History Tobacco Use Types Packs/Day Years Used Date Smoking Tobacco: Former Comments: Quit smoking: Alcohol Use Standard Drinks/Week Comments No 0 (1 standard drink = 0.6 oz pure alcoho l) Sex Assigned at Date Recorded Not on file documented as of this encounter Last Filed Vital Signs Vital Sign Reading Time Taken Comments Blood Pressure 126/71 09/27/2016 10:45 AM DESK OFFICER Pulse 96 09/27/2016 10:45 AM DESK OFFICER Temperature 36.3 ??C (97.3 ??F) 09/27/2016 10:00 AM DESK OFFICER Respiratory Rate 16 09/27/2016 10:45 AM DESK OFFICER Oxygen Saturation 95% 09/27/2016 10:45 AM DESK OFFICER Inhaled Oxygen Concentration - - Weight 93 kg (205 lb) 2016 3:43 PM CDT Height 172.7 cm (5' 8) 2016 3:43 PM CDT Body Mass Index 31.17 2016 3:43 PM CDT documented in this encounter Discharge Instructions Discharge Bebe Owens RN - 09/27/2016 10:09 AM DESK OFFICER PT touch toe touch weight bearing left [...] Understanding Pain Patient take-homes: Brace Ice pack(s) OFFICER documented in this encounter Medications at Time [...] 10:10 AM CST NAME: SHASHANK HASTINGS MR#: [id number] CSN: [id number] AUTHENTICATING CLINICIAN: Kameron Morales MD CONFIRM #: [id number] LOC: 725 OPERATIVE REPORT DATE OF OPERATION: 09/27/2016 : 1960 SURGEON: Kameron Morales MD MIXING TANK OPERATOR: NOLA Valles PREOPERATIVE DIAGNOSIS: Degenerative arthrosis left [...] operative complications. MTD:ADARSH C: R:09/27/16 09:35 CONFIRM#:[id number] OFFICER documented in this encounter Plan of Treatment Scheduled Orders Name Type Priority Associated Diagnoses Order S chedule POCT Glucose: Point of Care Routine Once today st arting now for 1 Occurrences s tarting 09/27/2016 unti l 09/27/2016 documented as of this encounter Procedures Procedure Name Priority Date/Time Associated Diagnosis Comme nts FUSION KNEE JOINT 09/27/2016 7:36 AM DESK OFFICER Tibial pain documented in this encounter Visit Diagnoses Not on filedocumented in this encounter Administered Medications Inactive Administered Medications - up to 3 most recent administrations Medication Order MAR Action Action Date Dose Rate Site bupivacaine-EPINEPHrine PF Given 09/27/2016 9:15 AM DESK OFFICER 30 mL Left Leg (SENSORCAINE) 0.5% -1:299040 injection 50 mL 50 mL, Regional Nerve Block, ONCE, On Tue09/27/16 at 0915, For 1 dose, Intra-op fentaNYL (SUBLIMAZE) injection 25-50 mcg Given 09/27/2016 9:25 AM DESK OFFICER 50 mcg 25-50 mcg, Intravenous, [id number], Other, Moderate to Severe Pain (pain score 5 and above), Starting on Tue09/27/16 at 0653, Until Tue09/27/16 at 1323, Administer every 5 minutes as needed, to a maximum cumulative dose of 250 mcg. For patients with a regional, spinal, or local anesthetic, may give for anticipated pain as the anesthetic wears off., PACU/Recovery Given 09/27/2016 9:15 AM DESK OFFICER 50 mcg hydrOXYzine HCl (VISTARIL) Given 09/27/2016 9:45 AM DESK OFFICER 25 mg Right Quadriceps injection 25 mg 25 mg, Intramuscular, Q6H PRN, Pain, Starting on Tue09/27/16 at 0940, Until Tue09/27/16 at 1323 ketorolac (TORADOL) injection 30 mg Given 09/27/2016 10:30 AM DESK OFFICER 30 mg 30 mg, Intravenous, ONCE (NON-SCHEDULED), Starting on Tue09/27/16 at 1123, Until Tue09/27/16 at 1323, For 48 hours, Intra-op oxyCODONE (ROXICODONE) immediate release Given 09/27/2016 10:16 AM DESK OFFICER 5 mg tablet 5 mg 5 mg, Oral, Q4H PRN, Other, Severe Pain (pain score 8-10), Starting on Tue09/27/16 at 1002, Until Tue09/27/16 at 1323, For 40 doses, Caution: Look-alike, sound-alike medication., Post-op documented in this encounter Active and Recently Administered Medications Due to Daylight Saving Time, this section may contain times in both CDT and DESK OFFICER. Scheduled Medication Order 09/25/2016 09/26/2016 09/27/2016 bupivacaine-EPINEPHrine PF (SENSORCAINE) 0.5% -1:[id number] injection 50 mL (COMPLETED) 0915 (Given - [...] Provider: Naima Spencer RN) 25-50 mcg, Intravenous, [id number], Other, Moderate to Severe Pain (pain score [...] Post-op documented in this encounter Care Teams Certified Physical Therapist Assistant Relationship Specialty Start Date End Date Lucero Fraire MD PCP - General 12/03/15 [address] [address] documented as of this encounter
--- OUTSIDE RECORDS SUMMARY | 2022-10-19 07:49 | XMS_ITS | Encounter Summary ---
:1960 Author Organization [facility] Address [address], [place] [address] Care Team Providers Name Role Phone Lucero Fraire MD Primary Care Provider Reason for Referral Procedure/Equipment (Routine) - Incomplete Specialty Diagnoses / Procedures Referred By Contact Refer red To Contact Diagnoses Surgery follow-up Shantell Garcia APRN, CNP Procedures CT Knee Lt WO IV Cont [address] [facility] [place], [place] [address] Referral ID Status Reason Start Date Expiration Date Visits V isits Requested Authorized [id number] Incomplete 03/21/2017 06/20/2018 1 1 Procedure/Equipment (Routine) - Incomplete Specialty Diagnoses / Procedures Referred By Contact Refer red To Contact Diagnoses Surgery follow-up Kameron Morales MD Procedures XR Knee Lt 2 Views [address] [facility] [address] [place], [place] [address] Referral ID Status Reason Start Date Expiration Date Visits V isits Requested Authorized [id number] Incomplete 03/21/2017 06/20/2018 1 1 Reason for Visit Reason Comments Knee Pain or Injury Left Encounter Details Date Type Department Care Team Description 03/21/2017 Office Visit [facility] Kameron Morales M D Surgery follow-up (Primary Dx); CENTER [address] [facility] [address] [place] of joint fusion, subsequent enc ounter [address] [place], [place] [id number] [phone] (Wo rk) Social History Tobacco Use Types [...] Kameron Morales MD Orthopaedic Surgeon, Board Certified Pelletizer: Faustina Oquendo Please contact Jane for all surgery scheduling and administrative questions at [phone] Please contact Nurse Triage for all medical related questions at [phone] Medication Requests: Prescriptions are not filled on Weekends or on Weekdays after 3:00PM For all medication refills: Request a refill using [employer] or contact your Pharmacy documented in this encounter Progress Notes Kameron Morales MD - 03/22/2017 3:42 PM CDT NAME: SHASHANK HASTINGS MR#: [id number] CSN: [id number] AUTHENTICATING CLINICIAN: Kameron Morales MD CONFIRM #: [id number] LOC: 711 CLINIC PROGRESS NOTE DATE OF [...] a CT scan. MTD:JONATHON C: R:03/21/17 14:21 CONFIRM#:[id number] documented in this encounter Plan of Treatment [...] of hardware complications . Shantell Garcia APRN, TOP LIFT NAILER RAD CT XR Knee Lt 2 Views [...] fied surgery [facility] Surgery follow-up Follow-up examination, following unspeci fied surgery Surgery follow-up Follow-up examination, following unspeci fied surgery documented in this encounter Care Teams Counter Dish Carrier Relationship Specialty Start Date End Date Lucero Fraire MD PCP - General 12/03/15 [address], [place] [address] documented as of this encounter
--- OUTSIDE RECORDS SUMMARY | 2022-10-19 07:49 | XMS_ITS | Encounter Summary ---
:1960 Author Organization [employer] Address [address] [place] [address] Care Team Providers Name Role Phone Lucero Fraire MD Primary Care Provider Encounter Details Date Type Department Care Team Description 09/27/2016 Surgery [facility] Kameron Morales MD Left proximal [address] [facility] [address] [facility] [address] tibia/fibula joint [place], [place] [address] [place], [place] fusion with internal [phone] fixation [phone] (Wo rk) Social History Tobacco Use Types Packs/Day Years Used Date Smoking Tobacco: Former Comments: Quit smoking: Alcohol Use Standard Drinks/Week Comments No 0 (1 standard drink = 0.6 oz pure alcoho l) Sex Assigned at Date Recorded Not on file documented as of this encounter Last Filed Vital Signs Vital Sign Reading Time Taken Comments Blood Pressure 126/80 09/27/2016 7:02 AM COMPENSATION VICE PRESIDENT Pulse 72 09/27/2016 7:02 AM COMPENSATION VICE PRESIDENT Temperature 36.7 ??C (98 ??F) 09/27/2016 7:02 AM COMPENSATION VICE PRESIDENT Respiratory Rate 14 09/27/2016 7:02 AM COMPENSATION VICE PRESIDENT Oxygen Saturation 95% 09/27/2016 7:02 AM COMPENSATION VICE PRESIDENT Inhaled Oxygen Concentration - - Weight 93 kg (205 lb) 2016 3:43 PM CDT Height 172.7 cm (5' 8) 2016 3:43 PM CDT Body Mass Index 31.17 2016 3:43 PM CDT documented in this encounter Discharge Instructions Discharge InstructionsErickson, Dannica B, RN - 09/27/2016 10:09 AM COMPENSATION VICE PRESIDENT PT touch toe touch weight bearing left [...] Understanding Pain Patient take-homes: Brace Ice pack(s) ENSATION VICE PRESIDENT documented in this encounter Medications at Time [...] 10:10 AM CST NAME: SHASHANK HASTINGS MR#: [id number] CSN: [id number] AUTHENTICATING CLINICIAN: Kameron Morales MD CONFIRM #: [id number] LOC: 725 OPERATIVE REPORT DATE OF OPERATION: 09/27/2016 : 1960 SURGEON: Kameron Morales MD CHILDCARE WORKER: NOLA Valles PREOPERATIVE DIAGNOSIS: Degenerative arthrosis left [...] operative complications. MTD:ADARSH C: R:09/27/16 09:35 CONFIRM#:[id number] ENSATION VICE PRESIDENT documented in this encounter Plan of Treatment Scheduled Orders Name Type Priority Associated Diagnoses Order S chedule POCT Glucose: Point of Care Routine Once today st arting now for 1 Occurrences s tarting 09/27/2016 unti l 09/27/2016 documented as of this encounter Procedures Procedure Name Priority Date/Time Associated Diagnosis Comme nts FUSION KNEE JOINT 09/27/2016 7:36 AM COMPENSATION VICE PRESIDENT Tibial pain documented in this encounter Visit Diagnoses Diagnosis Tibial pain documented in this encounter Administered Medications Inactive Administered Medications - up to 3 most recent administrations Medication Order MAR Action Action Date Dose Rate Site bupivacaine-EPINEPHrine PF Given 09/27/2016 9:15 AM COMPENSATION VICE PRESIDENT 30 mL Left Leg (SENSORCAINE) 0.5% -1:684570 injection 50 mL 50 mL, Regional Nerve Block, ONCE, On Tue09/27/16 at 0915, For 1 dose, Intra-op fentaNYL (SUBLIMAZE) injection 25-50 mcg Given 09/27/2016 9:25 AM COMPENSATION VICE PRESIDENT 50 mcg 25-50 mcg, Intravenous, T6AQVVHB, Other, Moderate to Severe Pain (pain score 5 and above), Starting on Tue09/27/16 at 0653, Until Tue09/27/16 at 1323, Administer every 5 minutes as needed, to a maximum cumulative dose of 250 mcg. For patients with a regional, spinal, or local anesthetic, may give for anticipated pain as the anesthetic wears off., PACU/Recovery Given 09/27/2016 9:15 AM COMPENSATION VICE PRESIDENT 50 mcg hydrOXYzine HCl (VISTARIL) Given 09/27/2016 9:45 AM COMPENSATION VICE PRESIDENT 25 mg Right Quadriceps injection 25 mg 25 mg, Intramuscular, Q6H PRN, Pain, Starting on Tue09/27/16 at 0940, Until Tue09/27/16 at 1323 ketorolac (TORADOL) injection 30 mg Given 09/27/2016 10:30 AM COMPENSATION VICE PRESIDENT 30 mg 30 mg, Intravenous, ONCE (NON-SCHEDULED), Starting on Tue09/27/16 at 1123, Until Tue09/27/16 at 1323, For 48 hours, Intra-op oxyCODONE (ROXICODONE) immediate release Given 09/27/2016 10:16 AM COMPENSATION VICE PRESIDENT 5 mg tablet 5 mg 5 mg, Oral, Q4H PRN, Other, Severe Pain (pain score 8-10), Starting on Tue09/27/16 at 1002, Until Tue09/27/16 at 1323, For 40 doses, Caution: Look-alike, sound-alike medication., Post-op documented in this encounter Active and Recently Administered Medications Due to Daylight Saving Time, this section may contain times in both CDT and COMPENSATION VICE PRESIDENT. Scheduled Medication Order 09/25/2016 09/26/2016 09/27/2016 bupivacaine-EPINEPHrine PF (SENSORCAINE) 0.5% -1:202351 injection 50 mL (COMPLETED) 0915 (Given - [...] Provider: Naima Spencer RN) 25-50 mcg, Intravenous, A5VYNOZE, Other, Moderate to Severe Pain (pain score [...] Post-op documented in this encounter Care Teams Manager Applied Relationship Specialty Start Date End Date Lucero Fraire MD PCP - General 12/03/15 [address], [place] [address] documented as of this encounter
--- OUTSIDE RECORDS SUMMARY | 2022-10-19 07:49 | XMS_ITS | Encounter Summary ---
:1960 Author Organization [employer] [facility] [facility] Address [address] [address] Care Team Providers Name Role Phone Lucero Fraire MD Primary Care Provider Reason for Visit Procedure/Equipment (Routine) - Incomplete Specialty Diagnoses / Procedures Referred By Contact Refer red To Contact Diagnoses Surgery follow-up Kameron Morales MD Procedures XR Tibia Fibula Lt 2 Views [address] [facility] DAYANA Jain [address] Referral ID Status Reason Start Date Expiration Date Visits V isits Requested Authorized [id number] Incomplete 01/24/2017 04/25/2018 1 1 Encounter Details Date Type Department Care Team Description 01/24/2017 Imaging [facility] Kameron Morales MD Surgery follow-up 8100 [facility] [address] [place] [address] [place] Jain [address] [place] [address] [phone] (Wo rk) Social History Tobacco Use Types [...] follow-u p Results for this 2 VIEWS HOT STONE SETTER procedure are i n the results section. documented in this encounter Results XR Tibia Fibula Lt 2 Views (01/24/2017 4:20 PM HOT STONE SETTER) Anatomical Region Laterality Modality Lower Extremity, Knee, [...] surgery documented in this encounter Care Teams Music Supervisor Relationship Specialty Start Date End Date Lucero Fraire MD PCP - General 12/03/15 [address], [place] [address] documented as of this encounter
--- OUTSIDE RECORDS SUMMARY | 2022-10-19 07:49 | XMS_ITS | Encounter Summary ---
:1960 Author Organization [employer] Address [address], [place] [address] Care Team Providers Name Role Phone Lucero Fraire MD Primary Care Provider Reason for Referral Procedure/Equipment (Routine) - Incomplete Specialty Diagnoses / Procedures Referred By Contact Refer red To Contact Diagnoses Surgery, elective Kameron Morales MD Procedures REGGIE Fluoroscopy Up To 1 Hour 8[address] [facility] [place], [place] [address] Referral ID Status Reason Start Date Expiration Date Visits V isits Requested Authorized [id number] Incomplete 08/05/2017 11/04/2018 1 1 Encounter Details Date Type Department Care Team Description 08/05/2017 Notes/Orders [facility] Kameron Morales M D Surgery, elective CENTER [address] [place] [address] (Primary Dx) [address] [place], [place] [address] [phone] (Wo rk) Social History Tobacco Use Types [...] states documented in this encounter Care Teams Pc Network Technician Relationship Specialty Start Date End Date Lucero Fraire MD PCP - General 12/03/15 [address], [place] [address] documented as of this encounter
--- OUTSIDE RECORDS SUMMARY | 2022-10-19 07:49 | XMS_ITS | Encounter Summary ---
:1960 Author Organization [employer] Address [address], [place] [address] Care Team Providers Name Role Phone Lucero Fraire MD Primary Care Provider Reason for Visit Reason Comments LEG PAIN Encounter Details Date Type Department Care Team Description 04/05/2016 Surgical Consult [facility] Kameron Morales MD Pain of left lower CENTER 8100 [facility] extremity (Primary 8100 [place], [place] Dx) [place] [address] [phone] Social History Tobacco Use Types Packs/Day Years [...] Kameron Morales MD Orthopaedic Surgeon, Board Certified Care Director: Faustina Oquendo Please contact Jane for all surgery scheduling and administrative questions at [phone] Please contact Nurse Triage for all medical related questions at [phone] Medication Requests: Prescriptions are not filled on [...] Filed: 05/10/161709 Note Time: 04/27/161137 Status: Signed Animal Laboratory Helper: Kameron Morales MD (Physician) NAME: SHASHANK HASTINGS MR#: [id number] CSN: [id number] AUTHENTICATING CLINICIAN: Kameron Morales MD CONFIRM #: [id number] LOC: 711 CLINIC PROGRESS NOTE DATE OF VISIT: 04/05/2016 : 1960 Shashank is seen in consultation at the request of Dr. Mazin Guerrero. CHIEF COMPLAINT: Left knee pain. 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 REVIEW OF SYSTEMS: Positive for the left [...] Primary documented in this encounter Care Teams Shoe Planner Relationship Specialty Start Date End Date Lucero Fraire MD PCP - General 12/03/15 [address] [place] [address] documented as of this encounter
--- OUTSIDE RECORDS SUMMARY | 2022-10-19 07:49 | XMS_ITS | Encounter Summary ---
:1960 Author Organization [facility] Address [address], [place] [address] Care Team Providers Name Role Phone Lucero Fraire MD Primary Care Provider Encounter Details Date Type Department Care Team Description 06/21/2016 Imaging [facility] Pain of left lower extremity [address] [place] [id number] Social History Tobacco Use Types Packs/Day Years [...] is 4/10 after injection. Kameron Morales MD [facility] documented in this encounter Visit Diagnoses Diagnosis Pain of left lower extremity documented in this encounter Care Teams Assistant Elementary Teacher Relationship Specialty Start Date End Date Lucero Fraire MD PCP - General 12/03/15 [address], [place] [address] documented as of this encounter
--- OUTSIDE RECORDS SUMMARY | 2022-10-19 07:49 | XMS_ITS | Encounter Summary ---
:1960 Author Organization [facility] Address [address] [place] [address] Care Team Providers Name Role Phone Lucero Fraire MD Primary Care Provider Reason for Visit Procedure/Equipment (Routine) - Incomplete Specialty Diagnoses / Procedures Referred By Contact Refer red To Contact Diagnoses Surgery follow-up Kameron Morales MD Procedures XR Knee Lt 2 Views [address] [facility] DAY[place] Jain [address] Referral ID Status Reason Start Date Expiration Date Visits V isits Requested Authorized [id number] Incomplete 06/06/2017 09/05/2018 1 1 Encounter Details Date Type Department Care Team Description 06/06/2017 Imaging [facility] Kameron Morales MD Surgery follow-up [address] [facility] [address] [facility] DAY[place] Jain [address] [place] [address] [phone] (Wo rk) Social History Tobacco Use Types [...] surgery documented in this encounter Care Teams Ordnance Truck Installation Supervisor Relationship Specialty Start Date End Date Lucero Fraire MD PCP - General 12/03/15 [address], [place] [address] documented as of this encounter
--- OUTSIDE RECORDS SUMMARY | 2022-10-19 07:49 | XMS_ITS | Encounter Summary ---
:1960 Author Organization [facility] Address [address] [place] [address] Care Team Providers Name Role Phone Lucero Fraire MD Primary Care Provider Reason for Visit Reason Onset Date Comments Refill 10/04/2016 oxycodone Encounter Details Date Type Department Care Team Description 10/04/2016 Refill [facility] Kameron Gann MD Refill (oxycodone) [address] [facility] [address] [facility] [address] [place] [address] [place] [address] [phone] (Wo rk) Social History Tobacco Use Types [...] refill and will send , Ghada to orange picker from [facility]. MACY ORDER ENTRY TECHNICIAN Sade Draper RN - 10/04/2016 10:16 AM CST Pt of Dr. Morales's s/p left proxmial tibia/fibula fusion w/internal fixation on 09/27/[address] Morales. Pt requesting med refill for oxycodone 5mg. Last refill 09/27, #40, (0) refills. Pt c/o left leg pain, 6-06/30. Pt reports taking six tablets daily. Please approve or advise. MACY ORDER ENTRY TECHNICIAN documented in this encounter Plan of Treatment Not on filedocumented as of this encounter Visit Diagnoses Not on filedocumented in this encounter Care Teams Last Putter Away Relationship Specialty Start Date End Date Lucero Fraire MD PCP - General 12/03/15 [address], [place] [address] documented as of this encounter
--- OUTSIDE RECORDS SUMMARY | 2022-10-19 07:49 | XMS_ITS | Encounter Summary ---
:1960 Author Organization [facility] Address [address] [address] Care Team Providers Name Role Phone Lucero Fraire MD Primary Care Provider Encounter Details Date Type Department Care Team Description 07/08/2016 Orders Only [facility] Kameron Morales M D Post-traumatic CENTER [address] [place] [address] Dr osteoarthritis of left [address] [place], [place] knee [place], [place] [address] [phone] Social History Tobacco Use Types Packs/Day Years Used Date Smoking Tobacco: Never Assessed Sex Assigned at Date Recorded Not on file documented as of this encounter Plan of Treatment Not on filedocumented as of this encounter Visit Diagnoses Diagnosis Post-traumatic osteoarthritis of left kn ee Secondary localized osteoarthrosis, lowe r leg documented in this encounter Care Teams Exchange Architect Relationship Specialty Start Date End Date Lucero Fraire MD PCP - General 12/03/15 [address] [place] [address] documented as of this encounter
--- OUTSIDE RECORDS SUMMARY | 2022-10-19 07:49 | XMS_ITS | Encounter Summary ---
:1960 Author Organization [employer] Address [address], [place] [address] Care Team Providers Name Role Phone Lucero Fraire MD Primary Care Provider Reason for Referral Procedure/Equipment (Routine) - Incomplete Specialty Diagnoses / Procedures Referred By Contact Refer red To Contact Diagnoses Surgery follow-up Kameron Morales MD Procedures XR Knee Lt [address] [place] [address] [place], [place] [address] Referral ID Status Reason Start Date Expiration Date Visits V isits Requested Authorized [id number] Incomplete 07/11/2017 10/10/2018 1 1 Reason for Visit Reason Comments Knee Pain or Injury Left Encounter Details Date Type Department Care Team Description 07/11/2017 Office Visit [facility] Kameron Morales M D Surgery follow-up (Primary Dx); CENTER [address] [place] [address] Chronic pain of right knee [address] [place], [place] [address] [phone] (Wo rk) Social History Tobacco Use Types [...] Kameron Morales MD Orthopaedic Surgeon, Board Certified Long Chain Beamer: Faustina Oquendo Please contact Jane for all surgery scheduling and administrative questions at [phone] Please contact Nurse Triage for all medical related questions at [phone] Medication Requests: Prescriptions are not filled on Weekends or on Weekdays after 3:00PM For all medication refills: Request a refill using [email or web address] or contact your Pharmacy documented in this encounter Progress Notes Shantell Garcia, PARTY DEMONSTRATOR, FORGE HELPER - 07/11/2017 2:55 PM CDT NAME: SHASHANK HASTINGS MR#: [id number] CSN: [id number] AUTHENTICATING CLINICIAN: Kameron Morales MD CONFIRM #: [id number] LOC: 711 CLINIC PROGRESS NOTE DATE OF [...] that time. Dictated by: Shantell Garcia, RN, FORGE HELPER MTD:RENAN C: R:07/11/17 15:01 CONFIRM#:[id number] documented in this encounter Plan of Treatment [...] surgery documented in this encounter Care Teams Asset Protection Manager Relationship Specialty Start Date End Date Lucero Fraire MD PCP - General 12/03/15 [address] [place] [address] documented as of this encounter
--- OUTSIDE RECORDS SUMMARY | 2022-10-19 07:49 | XMS_ITS | Encounter Summary ---
:1960 Author Organization [employer] Address [address], [place] [address] Care Team Providers Name Role Phone Lucero Fraire MD Primary Care Provider Reason for Visit Procedure/Equipment (Routine) - Incomplete Specialty Diagnoses / Procedures Referred By Contact Refer red To Contact Diagnoses Surgery follow-up Shantell Garcia APRN, IRRIGATION PUMP INSTALLER Procedures XR Tibia Fibula Lt [address] [place] [address] [place], [place] [address] Referral ID Status Reason Start Date Expiration Date Visits V isits Requested Authorized [id number] Incomplete 10/11/2016 01/10/2018 1 1 Encounter Details Date Type Department Care Team Description 10/11/2016 Imaging [facility] Shantell Garcia APRN, Surgery follow-up [address] [place], [place] [address] [address] [facility] [phone] [place] [address] (Wo rk) Social History Tobacco Use Types [...] follow- up Results for this 2 VIEWS FRIED CAKE MAKER procedure are i n the results section. documented in this encounter Results XR Tibia Fibula Lt 2 Views (10/11/2016 10:25 AM FRIED CAKE MAKER) Anatomical Region Laterality Modality Lower Extremity, Knee, Leg, Foot & Ankle Digital Radiography Specimen (Source) Anatomical Location Collection Method / Collectio n Time Received Time / Laterality Volume Narrative 11/08/2016 7:12 AM FRIED CAKE MAKER Ap and lateral xrays of the knee show good position of internal fixation screws. Shantell Garcia LEAD GENERATION REPRESENTATIVE, IRRIGATION PUMP INSTALLER RAD GD documented in this encounter Visit Diagnoses Diagnosis Surgery follow-up Follow-up examination, following unspeci fied surgery documented in this encounter Care Teams Career Services Assistant Relationship Specialty Start Date End Date Lucero Fraire MD PCP - General 12/03/[address] [place] [address] documented as of this encounter
--- OUTSIDE RECORDS SUMMARY | 2022-10-19 07:49 | XMS_ITS | Encounter Summary ---
:1960 Author Organization [facility] Address [address] [address] Care Team Providers Name Role Phone Lucero Fraire MD Primary Care Provider Encounter Details Date Type Department Care Team Description 08/05/2016 Notes/Orders [facility] Kameron Gann MD [address] [facility] [address] [place] [address] [place] [address] [address] [place] [address] [phone] (Wo rk) Social History Tobacco Use Types [...] on filedocumented in this encounter Care Teams Bread Stacker Relationship Specialty Start Date End Date Lucero Fraire MD PCP - General 12/03/[address] [place] [address] documented as of this encounter
--- OUTSIDE RECORDS SUMMARY | 2022-10-19 07:49 | XMS_ITS | Encounter Summary ---
:1960 Author Organization [facility] Address [address], [place] [address] Care Team Providers Name Role Phone Lucero Fraire MD Primary Care Provider Reason for Visit Reason Onset Date Comments QUESTIONS, GENERAL 12/08/2016 Return to Work Encounter Details Date Type Department Care Team Description 12/08/2016 Telephone [facility] Kameron Morales M D QUESTIONS, GENERAL CENTER [address] [place] [address] (Return to Work) [address] [place], [place] [address] [phone] (Wo rk) Social History Tobacco Use Types Packs/Day Years Used Date Smoking Tobacco: Former Comments: Quit smoking: Alcohol Use Standard Drinks/Week Comments No 0 (1 standard drink = 0.6 oz pure alcoho l) Sex Assigned at Date Recorded Not on file documented as of this encounter Nursing Notes Alma Delia Garibay RN - 12/08/2016 3:28 PM CST [facility] calls. States pt is wanting to return to work on sedentary duty. Scott note does state he needs to be off heavy duty for 2 more months. Workability form filled out for sedentary duty and faxed to Alie at [phone]. BOSS documented in this encounter Plan of Treatment Not on filedocumented as of this encounter Visit Diagnoses Not on filedocumented in this encounter Care Teams Dropper Tank Storage Relationship Specialty Start Date End Date Lucero Fraire MD PCP - General 12/03/15 [address], [place] [address] documented as of this encounter
--- OUTSIDE RECORDS SUMMARY | 2022-10-19 07:49 | XMS_ITS | Encounter Summary ---
:1960 Author Organization [facility] Address [address] [place] [address] Care Team Providers Name Role Phone Lucero Fraire MD Primary Care Provider Reason for Visit Procedure/Equipment (Routine) - Incomplete Specialty Diagnoses / Procedures Referred By Contact Refer red To Contact Diagnoses Surgery follow-up Kameron Morales MD Procedures XR Knee Lt 2 Views 8100 [facility] [place] Jain [address] Referral ID Status Reason Start Date Expiration Date Visits V isits Requested Authorized [id number] Incomplete 10/25/2016 01/24/2018 1 1 Encounter Details Date Type Department Care Team Description 10/25/2016 Imaging [facility] Kameron Morales MD Surgery follow-up [address] [facility] [address] [facility] [place] Jain [address] [place] [address] [phone] (Wo rk) Social History Tobacco Use Types [...] PM Surgery follow-u p Results for this GETTERER procedure are i n the results section. documented in this encounter Results XR Knee Lt 2 Views (10/25/2016 1:44 PM GETTERER) Anatomical Region Laterality Modality Lower Extremity, Knee Digital Radiograph y Specimen (Source) Anatomical Location Collection Method / Collectio n Time Received Time / Laterality Volume Narrative 11/08/2016 7:11 AM GETTERER Two view x-rays were taken which show excellent healing and fixation of the fusion site. Kameron Morales MD RAD GD documented in this encounter Visit Diagnoses Diagnosis Surgery follow-up Follow-up examination, following unspeci fied surgery documented in this encounter Care Teams Small Engine Specialist Relationship Specialty Start Date End Date Lucero Fraire MD PCP - General 12/03/15 [address], [place] [address] documented as of this encounter
--- OUTSIDE RECORDS SUMMARY | 2022-10-19 07:49 | XMS_ITS | Encounter Summary ---
:1960 Author Organization [employer] Address [address] [address] Care Team Providers Name Role Phone Lucero Fraire MD Primary Care Provider Reason for Referral Procedure/Equipment (Routine) - Incomplete Specialty Diagnoses / Procedures Referred By Contact Refer red To Contact Diagnoses Surgery follow-up Kameron Morales MD Procedures XR Knee Lt [address] [place] [address] [place], [place] [address] Referral ID Status Reason Start Date Expiration Date Visits V isits Requested Authorized [id number] Incomplete 10/25/2016 01/24/2018 1 1 [facility] Reason for Visit Reason Comments LEG PAIN Left Encounter Details Date Type Department Care Team Description 10/25/2016 Office Visit [facility] Kameron Morales M D Surgery follow-up (Primary Dx); CENTER [address] [place] [address] Left knee pain, unspecified chronicity [address] [place], [place] [phone] (Wo rk) Social History Tobacco Use Types [...] Kameron Morales MD Orthopaedic Surgeon, Board Certified Cracker And Cookie Machine Operator: Faustina Oquendo Please contact Jane for all surgery scheduling and administrative questions at [phone] Please contact Nurse Triage for all medical related questions at [phone] Medication Requests: Prescriptions are not filled on Weekends or on Weekdays after 3:00PM For all medication refills: Request a refill using MyChart or contact your Pharmacy Shantell Garcia RN OIL WELL CABLE TOOL DRILLER Nurse Practitioner Cracker And Cookie Machine Operator: Faustina Oquendo Please contact Jane for all surgery scheduling and administrative questions at [phone] Please contact Nurse Triage for all medical related questions at [phone] Medication Requests: Prescriptions are not filled on Weekends or on Weekdays after 3:00PM For all medication refills: Request a refill using MyChart or contact your Pharmacy [facility] documented in this encounter Progress Notes Shantell Garcia, CLINICAL FIELD SPECIALIST, OIL WELL CABLE TOOL DRILLER - 10/27/2016 10:24 AM CST NAME: SHASHANK HASTINGS MR#: [id number] CSN: [id number] AUTHENTICATING CLINICIAN: Kameron Morales MD CONFIRM #: [id number] LOC: 711 CLINIC PROGRESS NOTE DATE OF [...] left knee on arrival. Shantell Castellon RN, OIL WELL CABLE TOOL DRILLER, am serving as a scribe on 10/25/2016 to personally document services performed and statements dictated by Dr. Kameron Morales. I, Dr. Kameron Morales, was present during the services described in this documentation. I have reviewed the document for accuracy. Dictated by: Shantell Garcia RN, OIL WELL CABLE TOOL DRILLER MTD:IRENE C: R:10/25/16 14:47 CONFIRM#:[id number] Electronically signed by Shantell Garcia, CLINICAL FIELD SPECIALIST, OIL WELL CABLE TOOL DRILLER at 11/08/2016 9:44 AM RN [facility] documented in this encounter Plan of Treatment Not on filedocumented as of this encounter Results XR Knee Lt 2 Views (10/25/2016 1:44 PM RN [facility]) Anatomical Region Laterality Modality Lower Extremity, Knee Digital Radiograph y Specimen (Source) Anatomical Location Collection Method / Collectio n Time Received Time / Laterality Volume Narrative 11/08/2016 7:11 AM RN [facility] Two view x-rays were taken which show excellent healing and fixation of the fusion site. Kameron Morales MD RAD GD documented in this encounter Visit Diagnoses Diagnosis Surgery follow-up - Primary Follow-up examination, following unspeci fied surgery Left knee pain, unspecified chronicity Surgery follow-up Follow-up examination, following unspeci fied surgery documented in this encounter Care Teams Senior Rd Engineer Relationship Specialty Start Date End Date Lucero Fraire MD PCP - General 12/03/15 [address] [place] [address] documented as of this encounter
--- OUTSIDE RECORDS SUMMARY | 2022-10-19 07:49 | XMS_ITS | Encounter Summary ---
:1960 Author Organization [employer] Address [address] [place] [address] Care Team Providers Name Role Phone Lucero Fraire MD Primary Care Provider Encounter Details Date Type Department Care Team Description 09/27/2016 Anesthesia Event [facility] Omega Ortiz, [address] [facility] Carissa mejia MD [place], [place] [address] [phone] [address] [address] [place], [place] [address] (Wo rk) Anesthesia Record Procedure Summary Procedure Name Responsible Anesthesia Start Anesthesia Stop Time Anesthesiologist Time Left proximal Omega Ortiz MD 09/27/16 0733 09/27/16 09 08 tibia/fibula joint fusion with internal fixation (Left: Leg) Events Date Time Event Comment 09/27/2016 0710 IV plmt Saturnino Yeboah APRN, CALL OUT OPERATOR 0716 IV Plmt Comp IV was placed in Preop area by Saturnino Yeboah APRN, CALL OUT OPERATOR for a dministration of IV fluids, IV [...] y 09/27/16; Placement Saturnino Yeboah, Velma Yeboah, MAILING SECTION CLERK, Time: 742; Placed By: MAILING SECTION CLERK, CALL OUT OPERATOR CALL OUT OPERATOR CALL OUT OPERATOR; Induction Type: Pre-O2, IV, Inhalation; Size (mm): 5; Difficulty: Atraumatic; Removal Date: 09/27/16; Removal Time: 0859; Transferred with Oxygen: Yes Incision/Surgical 09/27/16; 0803; Leg; 09/27/16 0803 by 10/11/16 1124 by [facility], Site Left; 10/11/16; 1124 Silvana Wood RN [...] by: Omega Ortiz MD 09/27/2016 10:35 AM RICT SUPERINTENDENT Anesthesia Postprocedure Evaluation - Omega Ortiz MD [...] by: Omega Ortiz MD 09/27/2016 10:27 AM RICT SUPERINTENDENT Anesthesia Preprocedure Evaluation - Omega Ortiz MD [...] Route Frequency ??? bupivacaine-EPINEPHrine PF (SENSORCAINE) 0.25% -1:[id number] injection Intra-Op ??? ceFAZolin (ANCEF) 1 g [...] by: Omega Ortiz MD 09/27/2016 7:01 AM RICT SUPERINTENDENT documented in this encounter Plan of Treatment Not on filedocumented as of this encounter Visit Diagnoses Not on filedocumented in this encounter Administered Medications Inactive Administered Medications - up to 3 most recent administrations Medication Order MAR Action Action Date Dose Rate Site ceFAZolin (aka ANCEF) 2 g in Given 09/27/2016 7:33 AM DISTRICT SUPERINTENDENT 2 g dextrose 100 ml IVPB 2 g, Intravenous, Administer over 30 Minutes, ONCE, On Tue09/27/16 at 0730, For 1 dose, Infuse within 60 minutes prior to incision; Re-dose 1 gram IV every 4 hours after initial dose until incision closed., Pre-op dexamethasone (aka DECADRON) injection Given 09/27/2016 7:44 AM DISTRICT SUPERINTENDENT 4 mg Starting on Tue09/27/16 at 0744 ePHEDrine 5mg/ml in 0.9% sodium chloride Given 09/27/2016 8:01 A M DISTRICT SUPERINTENDENT 10 mg syringe Intravenous, Starting on Tue09/27/16 at 0748, Until Tue09/27/16 at 0908 Given 09/27/2016 7:55 AM DISTRICT SUPERINTENDENT 10 mg Given 09/27/2016 7:48 AM DISTRICT SUPERINTENDENT 10 mg fentaNYL (aka SUBLIMAZE) injection Given 09/27/2016 7:41 AM DISTRICT SUPERINTENDENT 1 mL Starting on Tue09/27/16 at 0733 Given 09/27/2016 7:33 AM DISTRICT SUPERINTENDENT 1 mL HYDROmorphone injectable 0.2-0.4 mg Given 09/27/2016 8:04 AM DISTRICT SUPERINTENDENT 0.5 mg 0.2-0.4 mg, Intravenous, Q10MIN PRN, Other, Moderate to Severe Pain (pain score 5 and above), Starting on Tue09/27/16 at 0653, Until Tue09/27/16 at 1323, Maximum cumulative dose is 2 mg. For patients with a regional, spinal, or local anesthetic, may give for anticipated pain as the anesthetic wears off., PACU/Recovery Given 09/27/2016 7:52 AM DISTRICT SUPERINTENDENT 0.5 mg lactated ringers infusion Started 09/27/2016 8:01 AM DISTRICT SUPERINTENDENT Intravenous, at 30 mL/hr, CONTINUOUS, Starting on Tue09/27/16 at 0730, Pre-op Started 09/27/2016 7:16 AM DISTRICT SUPERINTENDENT lidocaine 2% PF (XYLOCAINE) injection Given 09/27/2016 7:42 AM DISTRICT SUPERINTENDENT 100 mg Starting on Tue09/27/16 at 0742, Until Tue09/27/16 at 0908 midazolam (aka VERSED) injection Given 09/27/2016 7:33 AM DISTRICT SUPERINTENDENT 2 mg Starting on Tue09/27/16 at 0733 ondansetron (ZOFRAN) injection Given 09/27/2016 8:40 AM DISTRICT SUPERINTENDENT 4 mg Starting on Tue09/27/16 at 0840, Until Tue09/27/16 at 0908 propofol (aka diPRIvan) injection Given 09/27/2016 7:42 AM DISTRICT SUPERINTENDENT 200 mg Starting on Tue09/27/16 at 0742 propofol (aka diPRIvan) Rate/Dose Change 09/27/2016 8:40 60 mcg/kg/ min 33.48 mL/hr injection AM DISTRICT SUPERINTENDENT Starting on Tue09/27/16 at 0742 Rate/Dose Change 09/27/2016 8:18 AM DISTRICT SUPERINTENDENT 75 mcg/kg/min 41.85 mL/hr Rate/Dose Change 09/27/2016 8:01 AM DISTRICT SUPERINTENDENT 80 mcg/kg/min 44.64 mL/hr documented in this encounter Care Teams Recovery Assistant Relationship Specialty Start Date End Date Lucero Fraire MD PCP - General 12/03/15 [address] [place] [address] documented as of this encounter
--- OUTSIDE RECORDS SUMMARY | 2022-10-19 07:49 | XMS_ITS | Encounter Summary ---
:1960 Author Organization [employer] Address [address] [place] [address] Care Team Providers Name Role Phone Lucero Fraire MD Primary Care Provider Reason for Referral Procedure/Equipment (Routine) - Incomplete Specialty Diagnoses / Procedures Referred By Contact Refer red To Contact Diagnoses Surgery follow-up Kameron Morales MD Procedures Ultrasonic bone stimulator (Exogen) (E0760) [address] [place] [address] [facility] [place] [address] Referral ID Status Reason Start Date Expiration Date Visits V isits Requested Authorized [id number] Incomplete 01/24/2017 04/25/2018 1 1 ERY ASSOCIATE Procedure/Equipment (Routine) - Incomplete Specialty Diagnoses / Procedures Referred By Contact Refer red To Contact Diagnoses Surgery follow-up Kameron Morales MD Procedures XR Tibia Fibula Lt [address] [place] [address] [place] [address] Referral ID Status Reason Start Date Expiration Date Visits V isits Requested Authorized [id number] Incomplete 01/24/2017 04/25/2018 1 1 ERY ASSOCIATE Reason for Visit Reason Comments LEG PAIN Left Encounter Details Date Type Department Care Team Description 01/24/2017 Office Visit [facility] Kameron Morales M D Surgery follow-up (Primary Dx); CENTER [address] [place] [address] Lateral knee pain, right [address] [place], [place] [phone] (Wo rk) Social History Tobacco Use Types Packs/Day Years Used Date Smoking Tobacco: Former Comments: Quit smoking: Alcohol Use Standard Drinks/Week Comments No 0 (1 standard drink = 0.6 oz pure alcoho l) Sex Assigned at Date Recorded Not on file documented as of this encounter Patient Instructions Patient InstructionsSoFaustina rasmussen - 01/24/2017 4:[address] Kameron Morales MD Orthopaedic Surgeon, Board Certified Hydrodynamicist: Faustina Oquendo Please contact Jane for all surgery scheduling and administrative questions at [phone] Please contact Nurse Triage for all medical related questions at [phone] Medication Requests: Prescriptions are not filled on Weekends or on Weekdays after 3:00PM For all medication refills: Request a refill using [email or web address] or contact your Pharmacy ERY ASSOCIATE documented in this encounter Progress Notes Shantell Garcia, SLD EDUCATIONAL AIDE, SLASHER SAWYER - 01/26/2017 10:42 AM CST NAME: SHASHANK HASTINGS MR#: [id number] CSN: [id number] AUTHENTICATING CLINICIAN: Kameron Morales MD CONFIRM #: [id number] LOC: 711 CLINIC PROGRESS NOTE DATE OF VISIT: 01/24/2017 : 1960 Shashank is seen 4 months postop of his left proximal tib-fib fusion with internal fixation. He reports continued pain and discomfort. In fact, he feels it might be getting worse. Reports instability and chronic swelling and pins and needles anterolaterally. No new injuries, falls, twists or trauma. Has not been working. Reports no new complaints. PAST MEDICAL HISTORY: Reviewed. REVIEW OF SYSTEMS: Reviewed. PHYSICAL EXAM: Pleasant, cooperative male, alert and oriented x3. Tenderness is noted along the proximal tib-fib joint with motion detected on exam. Incisions are seen, clean, healed, benign and intact with no acute neurocirculatory changes or deficits noted. IMAGING: X-rays were ordered and independently reviewed by me. X-rays show minimal changes of healing to the fusion site. Fixation is appropriate. 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 PLAN: At this time the natural progression and plan of care was discussed. At this time he will continue to stay out of work, continue gentle isometrics, mdxba-he-gxvnfs activities, we will order an EXOGEN bone stimulator that he should use, following up with us in 8 weeks for an AP and lateral x-ray of his knee on arrival. Shantell Castellon, RN, SLASHER SAWYER, am serving as a scribe on 01/24/2017 to personally document services performed and statements dictated by Dr. Kameron Morales. I, Dr. Kameron Morales, was present during the services described in this documentation. I have reviewed the document for accuracy. Dictated by: Shantell Garcia RN, SLASHER SAWYER MTD:JONATHON C: R:01/24/17 17:08 CONFIRM#:[id number] documented in this encounter Plan of Treatment Not on filedocumented as of this encounter Results XR Tibia Fibula Lt 2 Views (01/24/2017 4:20 PM GROCERY ASSOCIATE) Anatomical Region Laterality Modality Lower Extremity, Knee, [...] Primary Follow-up examination, following unspeci fied surgery Lateral knee pain, right Surgery follow-up Follow-up examination, following unspeci fied surgery documented in this encounter Care Teams Melting Furnace Skimmer Relationship Specialty Start Date End Date Lucero Fraire MD PCP - General 12/03/15 [address], [place] [address] documented as of this encounter
--- OUTSIDE RECORDS SUMMARY | 2022-10-19 07:49 | XMS_ITS | Encounter Summary ---
:1960 Author Organization [employer] [facility] Address [address], [place] [address] Care Team Providers Name Role Phone Lucero Fraire MD Primary Care Provider Reason for Referral Procedure/Equipment (Routine) - Incomplete Specialty Diagnoses / Procedures Referred By Contact Refer red To Contact Diagnoses Surgery follow-up Shantell Garcia APRN, CNP Procedures KO Elastic with joint off the shelf (L1812) [address] [facility] [address] [place] [address] Referral ID Status Reason Start Date Expiration Date Visits V isits Requested Authorized [id number] Incomplete 10/11/2016 01/10/2018 1 1 TITATIVE MANAGER Procedure/Equipment (Routine) - Incomplete Specialty Diagnoses / Procedures Referred By Contact Refer red To Contact Diagnoses Surgery follow-up Shantell Garcia APRN, CNP Procedures XR Tibia Fibula Lt 2 Views [address] [facility] [address] [place] [address] Referral ID Status Reason Start Date Expiration Date Visits V isits Requested Authorized [id number] Incomplete 10/11/2016 01/10/2018 1 1 TITATIVE MANAGER Reason for Visit Reason Comments LEG PAIN Left Encounter Details Date Type Department Care Team Description 10/11/2016 Office Visit [facility] Shantell Garcia Surger y follow-up CENTER ISIDRO CHIN (Primary Dx) [address] [facility] [address] [facility] [place] [address] [place] [phone] (Wo rk) Social History Tobacco Use Types Packs/Day Years Used Date Smoking Tobacco: Former Comments: Quit smoking: Alcohol Use Standard Drinks/Week Comments No 0 (1 standard drink = 0.6 oz pure alcoho l) Sex Assigned at Date Recorded Not on file documented as of this encounter Patient Instructions Patient InstructionsSoFautsina rasmussen - 10/11/2016 10:47 AM CST Shantell Garcia RN MEDICAL MANAGEMENT TRAINER Nurse Practitioner Stock Sorter: Faustina Oquendo Please contact Jane for all surgery scheduling and administrative questions at [phone] Please contact Nurse Triage for all medical related questions at [phone] Medication Requests: Prescriptions are not filled on Weekends or on Weekdays after 3:00PM For all medication refills: Request a refill using ZingCheckout or contact your Pharmacy TITATIVE MANAGER documented in this encounter Progress Notes Shantell Garcia APRN, CNP - 10/13/2016 1:31 PM CST NAME: SHASHANK HASTINGS MR#: [id number] CSN: [id number] AUTHENTICATING CLINICIAN: ZANDRA Smith CONFIRM #: [id number] LOC: 711 CLINIC PROGRESS NOTE DATE OF VISIT: 10/11/2016 : 1960 Carlo is seen 2 weeks postop of his left proximal tib-fib fusion with internal fixation. He reports this pain as 7/10 scale. He reports he is unable to bear weight because of the pain. PHYSICAL EXAM: Incisions are all healed; benign and intact with no active drainage. He is in a wheelchair today. Hehas no pain with palpating the calf. He does have mild swelling distally. Is taking oxycodone for pain. Did wear a knee immobilizer for 5 days but now does not wear that. Is not doing any formal PT. Reports minimal pain unless he is attempting to weight bear. IMAGING: Two-view x-rays were taken today which show excellent placement of the fixation screws with early evidence of healing with no evidence of displacement, new fractures or other deformities. DIAGNOSIS: Left proximal tib-fib fusion. PLAN: At this time the natural progression and plan of care was discussed. Dr. Morales did review the x-rays and is okay with him advancing to weight bear as tolerated with a hinged brace. He will avoid NSAIDs.I did renew his oxycodone and keep him out of work for another month. He will follow up with Dr. Morales in 2 weeks for AP lateral x-ray of his knee on arrival or sooner if he has increasing pain, problems or other complications. He can weight bear as tolerated, working on gentle range of motion to his knee and weightbear as tolerated using crutches and wearing the brace. SMV:TH C: R:10/11/16 10:56 CONFIRM#:[id number] Electronically signed by Shantell Garcia, ELECTRIC LOCOMOTIVE FIRER/FIREMAN, MEDICAL MANAGEMENT TRAINER at 10/25/2016 10:23 AM QUANTITATIVE MANAGER documented in this encounter Plan of Treatment Not on filedocumented as of this encounter Results XR Tibia Fibula Lt 2 Views (10/11/2016 10:25 AM QUANTITATIVE MANAGER) Anatomical Region Laterality Modality Lower Extremity, Knee, Leg, Foot & Ankle Digital Radiography Specimen (Source) Anatomical Location Collection Method / Collectio n Time Received Time / Laterality Volume Narrative 11/08/2016 7:12 AM QUANTITATIVE MANAGER Ap and lateral xrays of the knee show good position of internal fixation screws. Shantell Garcia APRN, MEDICAL MANAGEMENT TRAINER RAD GD documented in this encounter Visit Diagnoses Diagnosis Surgery follow-up - Primary Follow-up examination, following unspeci fied surgery Surgery follow-up Follow-up examination, following unspeci fied surgery documented in this encounter Care Teams Automation Qtp Tester Relationship Specialty Start Date End Date Lucero Fraire MD PCP - General 12/03/15 [address] [place] [address] documented as of this encounter
--- OUTSIDE RECORDS SUMMARY | 2022-10-19 07:49 | XMS_ITS | Encounter Summary ---
:1960 Author Organization [facility] Address [address], [place] [address] Care Team Providers Name Role Phone Lucero Fraire MD Primary Care Provider Reason for Visit Procedure/Equipment (Routine) - Incomplete Specialty Diagnoses / Procedures Referred By Contact Refer red To Contact Diagnoses Surgery follow-up Shantell Garcia APRN, [facility] Procedures CT Knee Lt WO IV Cont [address] [facility] [place], [place] [address] Referral ID Status Reason Start Date Expiration Date Visits V isits Requested Authorized [id number] Incomplete 03/21/2017 06/20/2018 1 1 Encounter Details Date Type Department Care Team Description 04/22/[address] Scan Shantell Garcia APRN, Surgery follow-up [address] [place] [address] [address] [facility] [phone] [place] [address] (Wo rk) Social History Tobacco Use Types [...] of hardware complications . Shantell Garcia APRN, COMMERCIAL STRIPPER RAD CT documented in this encounter Visit Diagnoses Diagnosis Surgery follow-up Follow-up examination, following unspeci fied surgery documented in this encounter Care Teams Gift Shop Manager Relationship Specialty Start Date End Date Lucero Fraire MD PCP - General 12/03/[address] [place] [address] documented as of this encounter
--- OUTSIDE RECORDS SUMMARY | 2022-10-19 07:49 | XMS_ITS | Encounter Summary ---
:1960 Author Organization [facility] Address [address], [place] [address] Care Team Providers Name Role Phone Lucero Fraire MD Primary Care Provider Reason for Visit Reason Comments Knee Pain or Injury Encounter Details Date Type Department Care Team Description 07/05/2016 Office Visit [facility] Kameron Morales M D Post-traumatic CENTER [address] [place] [address] Dr osteoarthritis of left [address] [place], [place] [address] [phone] Social History Tobacco Use Types Packs/Day Years Used Date Smoking Tobacco: Never Assessed Sex Assigned at Date Recorded Not on file documented as of this encounter Progress Notes Kameron Morales MD - 07/05/2016 2:59 PM CDT Progress Notes signed by Kameron Morales MD at 08/23/161720 Author: Kameron Morales MD Service: (none) Author Type: Physician Filed: 08/23/161720 Note Time: 07/06/16801 Status: Signed Mine Analyst: Kameron Morales MD (Physician) NAME: SHASHANK HASTINGS MR#: [id number] CSN: [id number] AUTHENTICATING CLINICIAN: Kameron Morales MD CONFIRM #: [...] continue on a sedentary work status. ADDENDUM: [facility] visit with Shashank Hastings. The [facility] was present and informed of the diagnosis and sedentary work status and non-work for 2 months postoperative. MTD:JONATHON C: R:07/05/16 15:06 CONFIRM#:[id number] documented in this encounter Plan of Treatment Not on filedocumented as of this encounter Visit Diagnoses Diagnosis Post-traumatic osteoarthritis of left kn ee Secondary localized osteoarthrosis, lowe r leg documented in this encounter Care Teams Fall Internship Relationship Specialty Start Date End Date Lucero Fraire MD PCP - General 12/03/15 [address] [place] [address] documented as of this encounter
--- OUTSIDE RECORDS SUMMARY | 2022-10-19 07:49 | XMS_ITS | Encounter Summary ---
:1960 Author Organization [facility] Address [address] [place] [address] Care Team Providers Name Role Phone Lucero Fraire MD Primary Care Provider Reason for Visit Procedure/Equipment (Routine) - Incomplete Specialty Diagnoses / Procedures Referred By Contact Refer red To Contact Diagnoses Surgery follow-up Kameron Morales MD Procedures XR Knee Lt 2 Views [address] [facility] [place] [address] Referral ID Status Reason Start Date Expiration Date Visits V isits Requested Authorized [id number] Incomplete 03/21/2017 06/20/2018 1 1 Encounter Details Date Type Department Care Team Description 03/21/2017 Imaging [facility] Kameron Morales MD Surgery follow-up [address] [facility] [address] [facility] [place] [address] [address] [place] [address] [phone] (Wo rk) Social History Tobacco Use Types [...] surgery documented in this encounter Care Teams Grants Manager Relationship Specialty Start Date End Date Lucero Fraire MD PCP - General 12/03/15 [address], [place] [address] documented as of this encounter
--- OUTSIDE RECORDS SUMMARY | 2022-10-19 07:49 | XMS_ITS | Encounter Summary ---
:1960 Author Organization [employer] Address [address] [place] [address] Care Team Providers Name Role Phone Lucero Fraire MD Primary Care Provider Reason for Referral Procedure/Equipment (Routine) - Incomplete Specialty Diagnoses / Procedures Referred By Contact Refer red To Contact Diagnoses Malunion of joint fusion, subsequent encounter (HRC) Kameron Morales MD Procedures Ultrasonic bone stimulator (Exogen) (E0760) [address] [facility] [place], [place] [address] Referral ID Status Reason Start Date Expiration Date Visits V isits Requested Authorized [id number] Incomplete 02/07/2017 05/09/2018 1 1 Reason for Visit Reason Onset Date Comments Orders Needed 02/01/2017 bone stim Encounter Details Date Type Department Care Team Description 02/01/2017 Telephone [facility] Kameron Morales M D Orders Needed (bone CENTER [address] [facility] stim) [address] [place], [place] [address] [phone] (Wo rk) Social History Tobacco Use Types [...] to the attention of Triston Murcia at [phone]. documented in this encounter Plan of Treatment Not on filedocumented as of this encounter Visit Diagnoses Diagnosis Malunion of joint fusion, subsequent enc ounter (HRC) - Primary documented in this encounter Care Teams Calibration Tester Relationship Specialty Start Date End Date Lucero Fraire MD PCP - General 12/03/15 [address], [place] [address] documented as of this encounter
--- OUTSIDE RECORDS SUMMARY | 2022-10-19 07:49 | XMS_ITS | Encounter Summary ---
:1960 Author Organization [employer] Address [address], [place] [address] Care Team Providers Name Role Phone Lucero Fraire MD Primary Care Provider Reason for Referral Procedure/Equipment (Routine) - Incomplete Specialty Diagnoses / Procedures Referred By Contact Refer red To Contact Diagnoses Left leg injury, subsequent encounter Kameron Morales MD Procedures XR Knee Lt 2 Views [address] [place], [place] [address] Referral ID Status Reason Start Date Expiration Date Visits V isits Requested Authorized [id number] Incomplete 12/06/2016 03/07/2018 1 1 OWING WORKER Reason for Visit Reason Comments LEG PAIN Left leg and knee Encounter Details Date Type Department Care Team Description 12/06/2016 Office Visit [facility] Kameron Morales M D Left leg injury, CENTER [address] [place] [address] subsequent encounter [address] [place], [place] (Primary Dx) [place], [place] [address] [phone] (Wo rk) Social History Tobacco Use Types Packs/Day Years Used Date Smoking Tobacco: Former Comments: Quit smoking: Alcohol Use Standard Drinks/Week Comments No 0 (1 standard drink = 0.6 oz pure alcoho l) Sex Assigned at Date Recorded Not on file documented as of this encounter Progress Notes Kameron Morales MD - 12/08/2016 3:10 PM CST NAME: SHASHANK HASTINGS MR#: [id number] CSN: [id number] AUTHENTICATING CLINICIAN: Kameron Morales MD CONFIRM #: [id number] LOC: 711 CLINIC PROGRESS NOTE DATE OF [...] activities as tolerated. MTD:JONATHON C: R:12/06/16 15:44 CONFIRM#:[id number] OWING WORKER documented in this encounter Plan of Treatment Not on filedocumented as of this encounter Results XR Knee Lt 2 Views (12/06/2016 3:26 PM FARROWING WORKER) Anatomical Region Laterality Modality Lower Extremity, Knee Digital Radiograph y Specimen (Source) Anatomical Location Collection Method / Collectio n Time Received Time / Laterality Volume Narrative 12/27/2016 1:02 PM FARROWING WORKER AP and lateral x-ray of the knee shows good position of the internal fixation. Kameron Morales MD RAD GD documented in this encounter Visit Diagnoses Diagnosis Left leg injury, subsequent encounter - Primary Left leg injury, subsequent encounter documented in this encounter Care Teams Steel Grinder Relationship Specialty Start Date End Date Lucero Fraire MD PCP - General 12/03/15 [address] [place] [address] documented as of this encounter
--- OUTSIDE RECORDS SUMMARY | 2022-10-19 07:49 | XMS_ITS | Encounter Summary ---
:1960 Author Organization [employer] Address [address] [place] [address] Care Team Providers Name Role Phone Lucero Fraire MD Primary Care Provider Reason for Visit Procedure/Equipment (Routine) - Incomplete Specialty Diagnoses / Procedures Referred By Contact Refer red To Contact Diagnoses Left leg injury, subsequent encounter Kameron Morales MD Procedures XR Knee Lt 2 Views [address] [facility] [place] [address] Referral ID Status Reason Start Date Expiration Date Visits V isits Requested Authorized [id number] Incomplete 12/06/2016 03/07/2018 1 1 Encounter Details Date Type Department Care Team Description 12/06/2016 Imaging [facility] Kameron Morales MD Left leg injury, [address] [facility] [address] [place] [address] subsequent encounter [place] [address] [place] [address] [phone] (Wo rk) Social History Tobacco Use Types [...] PM Left leg injury, Results for this LEAD MASON TENDER subsequent encounter procedu re are in the results section. documented in this encounter Results XR Knee Lt 2 Views (12/06/2016 3:26 PM LEAD MASON TENDER) Anatomical Region Laterality Modality Lower Extremity, Knee Digital Radiograph y Specimen (Source) Anatomical Location Collection Method / Collectio n Time Received Time / Laterality Volume Narrative 12/27/2016 1:02 PM LEAD MASON TENDER AP and lateral x-ray of the knee shows good position of the internal fixation. Kameron Morales MD RAD GD documented in this encounter Visit Diagnoses Diagnosis Left leg injury, subsequent encounter documented in this encounter Care Teams Tour Coordinator Relationship Specialty Start Date End Date Lucero Fraire MD PCP - General 12/03/15 [address] [place] [address] documented as of this encounter
--- OUTSIDE RECORDS SUMMARY | 2022-10-19 07:49 | XMS_ITS | Encounter Summary ---
:1960 Author Organization [facility] Address [address] [address] Care Team Providers Name Role Phone Lucero Fraire MD Primary Care Provider Reason for Visit Reason Comments Provider Orders Encounter Details Date Type Department Care Team Description 07/09/2016 Telephone [facility] Kameron Gann MD Provider Orders [address] [facility] [address] [facility] [place], [place] [address] [place] [address] [phone] (Wo rk) Social History Tobacco Use Types Packs/Day Years Used Date Smoking Tobacco: Never Assessed Sex Assigned at Date Recorded Not on file documented as of this encounter Plan of Treatment Not on filedocumented as of this encounter Visit Diagnoses Diagnosis Chronic pain of left knee - Primary Pain in joint, lower leg documented in this encounter Care Teams Textile Bag Sewer Relationship Specialty Start Date End Date Lucero Fraire MD PCP - General 12/03/15 [address] [place] [address] documented as of this encounter
--- OUTSIDE RECORDS SUMMARY | 2022-10-19 07:49 | XMS_ITS | Encounter Summary ---
:1960 Author Organization [facility] Address [address], [place] [address] Care Team Providers Name Role Phone Lucero Fraire MD Primary Care Provider Reason for Visit Procedure/Equipment (Routine) - Incomplete Specialty Diagnoses / Procedures Referred By Contact Refer red To Contact Diagnoses Surgery follow-up Kameron Morales MD Procedures XR Knee Lt 2 Views [address] [facility] [place] [address] Referral ID Status Reason Start Date Expiration Date Visits V isits Requested Authorized [id number] Incomplete 07/11/2017 10/10/2018 1 1 Encounter Details Date Type Department Care Team Description 07/11/2017 Imaging [facility] Kameron Morales MD Surgery follow-up [address] [facility] [address] [facility] [place] [address] [place] [address] [phone] (Wo rk) Social History Tobacco Use Types [...] surgery documented in this encounter Care Teams Automatic Toe Laster Relationship Specialty Start Date End Date Lucero Fraire MD PCP - General 12/03/[address] [place] [address] documented as of this encounter
--- OUTSIDE RECORDS SUMMARY | 2022-10-19 07:49 | XMS_ITS | Encounter Summary ---
:1960 Author Organization [employer] Address [address], [place] [address] Care Team Providers Name Role Phone Lucero Fraire MD Primary Care Provider Reason for Referral Therapies (Routine) - Closed Specialty Diagnoses / Procedures Referred By Contact Refer red To Contact Diagnoses Left knee pain, unspecified chronicity Shantell Garcia APRN, CNP [address] [place] [address] [place], [place] [address] Referral ID Status Reason Start Date Expiration Date Visits Requ ested Visits Authorized [id number] Closed 04/25/2017 06/24/2017 1 1 Scheduling Instructions [...] M D Left knee pain, CENTER [address] [facility] unspecified [address] [place], [place] chronicity (Primary [place], [place] [address] Dx) [phone] (Wo rk) Social History Tobacco Use Types [...] Kameron Morales MD Orthopaedic Surgeon, Board Certified Stacker Operator: Faustina Oquendo Please contact Jane for all surgery scheduling and administrative questions at [phone] Please contact Nurse Triage for all medical related questions at [phone] Medication Requests: Prescriptions are not filled on Weekends or on Weekdays after 3:00PM For all medication refills: Request a refill using MyChart or contact your Pharmacy Follow up as needed documented in this encounter Progress Notes Kameron Morales MD - 04/25/2017 1:55 PM CDT NAME: SHASHANK HASTINGS MR#: [id number] CSN: [id number] AUTHENTICATING CLINICIAN: Kameron Morales MD CONFIRM #: [id number] LOC: 711 CLINIC PROGRESS NOTE DATE OF [...] x-ray internally rotated. MTD: C: R:04/25/17 14:03 CONFIRM#:[id number] documented in this encounter Plan of Treatment Scheduled Referrals Name Type Priority Associated Diagnoses Order S chedule Physical Therapy Referral Routine Left knee pain, unspecif ied Ordered: 04/25/2017 chronicity documented as of this encounter Visit Diagnoses Diagnosis Left knee pain, unspecified chronicity - Primary documented in this encounter Care Teams Instrumentation And Control Technician Relationship Specialty Start Date End Date Lucero Fraire MD PCP - General 12/03/15 [address] [place] [address] documented as of this encounter
--- OUTSIDE RECORDS SUMMARY | 2022-10-19 07:49 | XMS_ITS | Encounter Summary ---
:1960 Author Organization [employer] Address [address] [address] Care Team Providers Name Role Phone Lucero Fraire MD Primary Care Provider Reason for Referral Therapies (Routine) - Closed Specialty Diagnoses / Procedures Referred By Contact Refer red To Contact Diagnoses Surgery follow-up Kameron Morales MD [address] [facility] [address] [place] [address] Referral ID Status Reason Start Date Expiration Date Visits Requ ested Visits Authorized [id number] Closed 06/06/2017 08/05/2017 1 1 Scheduling Instructions [...] Procedures XR Knee Lt 2 Views [address] [facility] [place] [address] [place] [address] Referral ID Status Reason Start Date Expiration Date Visits V isits Requested Authorized [id number] Incomplete 06/06/2017 09/05/2018 1 1 Reason for Visit Reason Comments Knee Pain or Injury Left Encounter Details Date Type Department Care Team Description 06/06/2017 Office Visit [facility] M D Surgery follow-up CENTER [address] [place] [address] (Primary Dx) [address] [place], [place] [address] [phone] (Wo rk) Social History Tobacco Use Types Packs/Day Years Used Date Smoking Tobacco: Former Comments: Quit smoking: Alcohol Use Standard Drinks/Week Comments No 0 (1 standard drink = 0.6 oz pure alcoho l) Sex Assigned at Date Recorded Not on file documented as of this encounter Progress Notes Zeke Nevarez MD - 06/06/2017 2:48 PM CDT NAME: SHASHANK HASTINGS MR#: [id number] CSN: [id number] AUTHENTICATING CLINICIAN: Kameron Morales MD CONFIRM #: [...] Name Type Priority Associated Diagnoses [facility] Referral Routine Surgery follow-up [...] surgery documented in this encounter Care Teams Table Operator Relationship Specialty Start Date End Date Lucero Fraire MD PCP - General 12/03/15 [address] [address] documented as of this encounter
--- OUTSIDE RECORDS SUMMARY | 2022-10-19 07:49 | XMS_ITS | Encounter Summary ---
:1960 Author Organization [employer] Address [address], [place] [address] Care Team Providers Name Role Phone Lucero Fraire MD Primary Care Provider Reason for Referral Procedure/Equipment (Routine) - Incomplete Specialty Diagnoses / Procedures Referred By Contact Refer red To Contact Diagnoses Surgery, elective Kameron Morales MD Procedures REGGIE Fluoroscopy Up To 1 Hour [address] [facility] [place], [place] [address] Referral ID Status Reason Start Date Expiration Date Visits V isits Requested Authorized [id number] Incomplete 09/23/2016 12/23/2017 1 1 Encounter Details Date Type Department Care Team Description 09/23/2016 Notes/Orders [facility] Kameron Morales M D Surgery, elective CENTER [address] [place] [address] (Primary Dx) [address] [place], [place] [address] [phone] (Wo rk) Social History Tobacco Use Types Packs/Day Years Used Date Smoking Tobacco: Former Comments: Quit smoking: Alcohol Use Standard Drinks/Week Comments No 0 (1 standard drink = 0.6 oz pure alcoho l) Sex Assigned at Date Recorded Not on file documented as of this encounter Plan of Treatment Not on filedocumented as of this encounter Results REGGIE Fluoroscopy Up To 1 Hour (09/27/2016 9:35 AM PALM AND BACK FORGER) Anatomical Region Laterality Modality Radiographic Imaging Specimen (Source) Anatomical Location Collection Method / Collectio n Time Received Time / Laterality Volume Kameron Morales MD RAD NON-REPORTABLES documented in this encounter Visit Diagnoses Diagnosis Surgery, elective - Primary Unspecified elective surgery for purpose s other than remedying health states documented in this encounter Care Teams Heat Engineering Teacher Relationship Specialty Start Date End Date Lucero Fraire MD PCP - General 12/03/15 [address], [place] [address] documented as of this encounter
--- OUTSIDE RECORDS SUMMARY | 2022-10-19 07:49 | XMS_ITS | Encounter Summary ---
:1960 Author Organization [employer] Address [address], [place] [address] Care Team Providers Name Role Phone Lucero Fraire MD Primary Care Provider Encounter Details Date Type Department Care Team Description 08/08/2017 Hospital Encounter [facility] Kameron Morales MD [address] [facility] [address] [facility] [place], [place] [address] [place], [place] [phone] (Wo rk) Social History Tobacco Use Types [...] 12:00 PM CDT NAME: SHASHANK HASTINGS MR#: [id number] CSN: [id number] AUTHENTICATING CLINICIAN: Kameron Morales MD CONFIRM #: [id number] LOC: 725 OPERATIVE REPORT DATE OF OPERATION: 08/08/2017 : 1960 SURGEON: Kameron Morales MD DIALYSIS RN: Roberto Beltrán PA-C. It was medically necessary for a physician insurance claims assistant to assist in the surgical care of this patient.There was no resident physician available for assistance. PREOPERATIVE DIAGNOSIS: Retained hardware, left knee. POSTOPERATIVE DIAGNOSIS: Retained hardware, left knee. PROCEDURE PERFORMED: Removal of 2 screws and 2 washers left upper tibia. PROCEDURE: Under general anesthesia in the supine position, the left knee was prepped and draped in the usual sterile fashion. A fkkop-sgt-nwx-cause occurred and all present were in agreement. [...] to the knee. MTD: C: R:08/08/17 15:08 CONFIRM#:[id number] PICKLER documented in this encounter Miscellaneous Notes OR [...] PM CDT 50 mcg 25-50 mcg, Intravenous, [id number], Other, Moderate to Severe Pain (pain score [...] Provider: Anisa Min, DESTIN) 25-50 mcg, Intravenous, [id number], Other, Moderate to Severe Pain (pain score [...] (DEMEROL) injection 12.5 mg 12.5 mg, Intravenous, [id number], Shiverin g, Starting Tue08/08/17 at 0944, For 2 doses, Maximum cumulative dose is 25 mg. Do not give to patients receiving MAO inhibitors (e.g. phenelzine (NARDIL), tranyl cypromine (PARNATE), selegiline (ELDEPRYL))., PACU/Recovery morphine injectable 1-3 mg 1-3 mg, Intravenous, [id number], Other, Mo derate to Severe Pain (pain [...] Post-op documented in this encounter Care Teams Pullboat Engineer Relationship Specialty Start Date End Date Lucero Fraire MD PCP - General 12/03/15 [address] [place] [address] documented as of this encounter
--- OUTSIDE RECORDS SUMMARY | 2022-10-19 07:50 | XMS_ITS | Encounter Summary ---
:1960 Author Organization [employer] Address [address], [place] [address] Care Team Providers Name Role Phone Unassigned, Provider Primary Care Provider Unavailable Encounter Details Date Type Department Care Team Description 10/11/2008 Office Visit [facility] [place] [address] [place], [place] [address] [place] [address] [phone] Social History Tobacco Use Types Packs/Day Years Used Date Smoking Tobacco: Never Assessed Sex Assigned at Date Recorded Not on file documented as of this encounter Last Filed Vital Signs Vital Sign Reading Time Taken Comments Blood Pressure 108/74 10/11/2008 5:42 PM SENIOR BENEFITS SPECIALIST Pulse 60 10/11/2008 5:42 PM SENIOR BENEFITS SPECIALIST Temperature 36.4 ??C (97.5 ??F) 10/11/2008 5:42 PM SENIOR BENEFITS SPECIALIST C: 36 .4 C Respiratory Rate 16 10/11/2008 5:42 PM SENIOR BENEFITS SPECIALIST Oxygen Saturation 98% 10/11/2008 5:42 PM SENIOR BENEFITS SPECIALIST Inhaled Oxygen Concentration - - Weight - - Height - - Body Mass Index - - documented in this encounter Progress Notes Blaine Medina MD - 10/11/2008 12:01 AM CST Progress Notes signed by Blaine Medina MD at 11/10/08 1217 Author: Blaine Medina MD Service: (none) Author Type: Physician Filed: 03/13/11 0854 Note Time: 10/11/08 0001 Status: Signed Nuclear Medicine Tech: Blaine Medina MD (Physician) NAME: SHASHANK HASTINGS MR#: [id number] ACCT: [id number] VISIT: [id number] DICTATING CLINICIAN: Blaine Medina MD CONFIRM #: [id number] LOC: 520 CLINIC PROGRESS NOTE DATE OF [...] if we can get him off his rjev-cvg-ngsatbt nasal decongestant spray he has been using. If this does help would consider using this more long-term. He has an appointment with a doctor in the beginning of October, will address that issue then and he is to recheck if not noting improvement over the next 5 days, or other difficulties developing. BOR:[id number] C: 10/12/08 17:20 CONFIRM #: [id number] OR BENEFITS SPECIALIST documented in this encounter Plan of Treatment Not on filedocumented as of this encounter Visit Diagnoses Not on filedocumented in this encounter Care Teams Resource Room Teacher Relationship Specialty Start Date End Date Unassigned, Provider PCP - General 10/27/00 12/02/[address] [place] [address] documented as of this encounter
--- OUTSIDE RECORDS SUMMARY | 2022-10-19 07:50 | XMS_ITS | Encounter Summary ---
:1960 Author Organization [employer] Address [address] [place] [address] Care Team Providers Name Role Phone Unassigned, Provider Primary Care Provider Unavailable Reason for Visit Reason Comments Laceration Encounter Details Date Type Department Care Team Description 10/08/2014 Hospital Encounter [facility] Blaine Pearson [place] [address] [address] Social History Tobacco Use Types Packs/Day Years Used Date Smoking Tobacco: Never Assessed Sex Assigned at Date Recorded Not on file documented as of this encounter Last Filed Vital Signs Vital Sign Reading Time Taken Comments Blood Pressure 132/87 10/08/2014 4:50 PM GIS ADMINISTRATOR Pulse 98 10/08/2014 4:50 PM GIS ADMINISTRATOR Temperature 36.9 ??C (98.4 ??F) 10/08/2014 4:50 PM GIS ADMINISTRATOR Respiratory Rate 14 10/08/2014 4:50 PM GIS ADMINISTRATOR Oxygen Saturation - - Inhaled Oxygen Concentration [...] PM CST ED Provider Notes by Blaine Pearson MD at 10/08/141831 Author: Blaine Pearson MD Service: (none) Author Type: Physician Filed: 10/08/141837 Note Time: 10/08/141831 Status: Signed Sounding Device Operator: Blaine Pearson MD (Physician) Procedure Orders: 1. Notewriter Documentation: Laceration Repair [[id number]] ordered by Blaine Pearson MD at 10/08/141835 [...] in 10-14 days to consider suture removal. ADMINISTRATOR documented in this encounter Miscellaneous Notes Medication [...] Date:-, Frequency:3 TIMES DAILY *No Administrations Recorded ADMINISTRATOR documented in this encounter Plan of Treatment Not on filedocumented as of this encounter Visit Diagnoses Diagnosis Laceration of thumb Open wound of finger(s) , without mentio n of complication Triage Assessment Note - Pushpa Powell RN - 10/08/2014 4:48 PM CST Pt received laceration to left thumb. documented in this encounter Care Teams Digital Forensic Examiner Relationship Specialty Start Date End Date Unassigned, Provider PCP - General 10/27/00 12/02/[address] [place] [address] documented as of this encounter
--- OUTSIDE RECORDS SUMMARY | 2022-10-19 07:50 | XMS_ITS | Encounter Summary ---
:1960 Author Organization [employer] Address [address] [place] [address] Care Team Providers Name Role Phone Unassigned, Provider Primary Care Provider Unavailable Reason for Visit Reason Comments BITE, INSECT Encounter Details Date Type Department Care Team Description 07/03/2011 Hospital Encounter [facility] Radha Fischer, JOSELINEC Cellulitis [address] [address] [facility] [phone] [place], [place] [id number] (Wo rk) Social History Tobacco Use Types [...] te documented in this encounter Care Teams Stenotypist Relationship Specialty Start Date End Date Unassigned, Provider PCP - General 10/27/00 12/02/[address] [place] [address] documented as of this encounter
--- OUTSIDE RECORDS SUMMARY | 2022-10-19 07:50 | XMS_ITS | Encounter Summary ---
:1960 Author Organization [facility] Address [address], [place] [address] Care Team Providers Name Role Phone Unassigned, [...] filedocumented in this encounter Care Teams Commercial Litigation Associate Relationship Specialty Start Date End Date Unassigned, Provider PCP - General 10/27/00 12/02/[address] [place] [address] documented as of this encounter
--- OUTSIDE RECORDS SUMMARY | 2022-10-19 07:50 | XMS_ITS | Encounter Summary ---
:1960 Author Organization [facility] Address [address] [address] Care Team Providers Name Role Phone Unassigned, Provider Primary Care Provider Unavailable Encounter Details Date Type Department Care Team Description 11/26/2007 PN Conversion Only [facility] [address] [address] [place] [address] Social History Tobacco Use Types Packs/Day Years Used Date Smoking Tobacco: Never Assessed Sex Assigned at Date Recorded Not on file documented as of this encounter Plan of Treatment Not on filedocumented as of this encounter Visit Diagnoses Not on filedocumented in this encounter Care Teams Grain Trader Relationship Specialty Start Date End Date Unassigned, Provider PCP - General 10/27/00 12/02/[address] [place] [address] documented as of this encounter
--- OUTSIDE RECORDS SUMMARY | 2022-10-19 07:50 | XMS_ITS | Encounter Summary ---
:1960 Author Organization [facility] Address [address] [address] Care Team Providers Name Role Phone Unassigned, Provider Primary Care Provider Unavailable Encounter Details Date Type Department Care Team Description 11/26/2007 PN Conversion Only [facility] [address] [address] [place] [address] Social History Tobacco Use Types Packs/Day Years Used Date Smoking Tobacco: Never Assessed Sex Assigned at Date Recorded Not on file documented as of this encounter Plan of Treatment Not on filedocumented as of this encounter Visit Diagnoses Not on filedocumented in this encounter Care Teams Esol Teacher Relationship Specialty Start Date End Date Unassigned, Provider PCP - General 10/27/00 12/02/[address] [place] [address] documented as of this encounter
--- OUTSIDE RECORDS SUMMARY | 2022-10-19 07:50 | XMS_ITS | Encounter Summary ---
:1960 Author Organization [facility] Address [address] [address] Care Team Providers Name Role Phone Lucero Fraire MD Primary Care Provider Encounter Details Date Type Department Care Team Description 04/05/2016 Imaging [facility] Pain of left lower extremity [address] [place], [place] [address] Social History Tobacco Use Types [...] extremity documented in this encounter Care Teams Dimpling Machine Operator Relationship Specialty Start Date End Date Lucero Fraire MD PCP - General 12/03/15 [address], [place] [address] documented as of this encounter
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
--- OUTSIDE RECORDS SUMMARY | 2022-10-19 07:50 | XMS_ITS | Encounter Summary ---
:1960 Author Organization [facility] Address [address] [place] [address] Care Team Providers Name Role Phone Unassigned, Provider Primary Care Provider Unavailable Encounter Details Date Type Department Care Team Description 09/12/2015 Imaging [id number] RADIOLOGY [facility] FILM LIBRARY [address] [facility] [address] Social History Tobacco Use Types Packs/Day Years [...] / Laterality Volume Narrative 12/03/2015 9:30 AM PERSONNEL OFFICER These outside images have been uploaded into [...] on filedocumented in this encounter Care Teams Mason Helper Relationship Specialty Start Date End Date Unassigned, Provider PCP - General 10/27/00 12/02/15 [address] [place] [address] documented as of this encounter
--- OUTSIDE RECORDS SUMMARY | 2022-10-19 07:50 | XMS_ITS | Encounter Summary ---
:1960 Author Organization [facility] Address [address], [place] [address] Care Team Providers Name Role Phone Lucreo Fraire MD Primary Care Provider Reason for Visit Reason Comments INJURY, KNEE Encounter Details Date Type Department Care Team Description 12/03/2015 Surgical Consult [facility] Mazin Guerrero MD Osteoarthritis of lower extremity (Prima ry Dx); CENTER [address] [facility] Left knee pain [address] [place] [address] [address] [place], [place] [phone] (Work) [phone] Social History Tobacco Use Types Packs/Day Years Used Date Smoking Tobacco: Never Assessed Sex Assigned at Date Recorded Not on file documented as of this encounter Last Filed Vital Signs Vital Sign Reading Time Taken Comments Blood Pressure 141/95 12/03/2015 9:32 AM EQUINE DENTIST Pulse 89 12/03/2015 9:32 AM EQUINE DENTIST Temperature - - Respiratory Rate - - Oxygen Saturation - - Inhaled Oxygen Concentration - - Weight 98.9 kg (218 lb) 12/03/2015 9:32 AM EQUINE DENTIST Height 175.3 cm (5' 9.02) 12/03/2015 9:32 AM EQUINE DENTIST Body Mass Index 32.18 12/03/2015 9:32 AM EQUINE DENTIST documented in this encounter Patient Instructions Patient InstructionsClaritza Eisenberg MA - 12/03/2015 9:[address] Mazin Guererro MD Orthopaedic Surgeon Physician Professional Volleyball Player: Tete Garcia Yard Demurrage Clerk: Brenda Peña Please contact Brenda with all administrative questions at [phone] Nurse: Neeta Lopez Please contact Neeta for any medical questions at [phone] Medication Requests: Prescriptions are not filled on Weekends or on Weekdays after 3:00PM For all medication refills: Request a refill using MyChart or contact your Pharmacy NE DENTIST documented in this encounter Progress Notes Mazin Guerrero MD - 12/09/2015 3:39 PM CST [facility] Consultation 12/03/2015 The patient presents today in the company of their [facility], who was present during the whole interview Chief Complaint: Left knee pain History of Present Illness: Shashank Hastings is a 55 y.o. male who presents for evaluation of left knee pain. The patient states he received a Cortisone injection to his left knee in March of 2015 at [facility]. The patient states that he had 0/10 pain afterwards and denies any other history of problems in this left knee. 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 He was evaluated by Dr. Cleary at [facility] in August of 2015 where he was provided with a Cortisone injection for degenerative changes of his proximal tib/fib. This only provided him with 3 days relief. He returned to [facility] the interim and was offered another injection, [...] History: . Former smoker. 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 The General Medical History Form dated 12/03/2015 was updated and reviewed with the patient; this is located in [facility] in [facility]. Review of Systems: No swelling. No thigh/calf [...] presents today in the company of their [facility], who was present during the whole [...] 12/03/2015 at 7:34 AM. Mazin Guerrero MD NE DENTIST documented in this encounter Plan of Treatment Not on filedocumented as of this encounter Visit Diagnoses Diagnosis Osteoarthritis of lower extremity - Prim shon Osteoarthrosis, unspecified whether gene ralized or localized, lower leg Left knee pain Pain in joint, lower leg documented in this encounter Care Teams Outreach Specialist Relationship Specialty Start Date End Date Lucero Fraire MD PCP - General 12/03/15 [address], [place] [address] documented as of this encounter
--- OUTSIDE RECORDS SUMMARY | 2022-10-19 07:50 | XMS_ITS | Encounter Summary ---
:1960 Author Organization [facility] Address [address] [place] [address] Care Team Providers Name Role Phone Unassigned, Provider Primary Care Provider Unavailable Encounter Details Date Type Department Care Team Description 10/11/2008 PN Conversion Only [place] Blaine Connell, [address] [place] [address] [address] [place], [place] [id number] Social History Tobacco Use Types Packs/Day Years Used Date Smoking Tobacco: Never Assessed Sex Assigned at Date Recorded Not on file documented as of this encounter Plan of Treatment Not on filedocumented as of this encounter Procedures Procedure Name Priority Date/Time Associated Diagnosis Comme nts STREP GROUP A Routine 10/11/2008 6:44 PM Results for this ANTIGEN TEST IMMIGRATION CASE MANAGER procedure are i n the results section. BETA STREP FOLLOWUP Routine 10/11/2008 6:44 PM Re sults for this IMMIGRATION CASE MANAGER procedure are i n the results section. documented in this encounter Results Strep Group A Antigen Test (10/11/2008 6:44 PM IMMIGRATION CASE MANAGER) Analysis Performed At Patho logist Time Signature Strep Group A Negative Negative HP CONVERSION Antigen Test Comment: Culture to follow. Specimen (Source) Anatomical Collection Method Collection Time Re ceived Time Location / / Volume Laterality 10/11/2008 6:44 PM IMMIGRATION CASE MANAGER Blaine Medina MD LAB_1 Performing Organization Address City/State/ZIP Code Phon e Number HP CONVERSION Beta Strep Followup (10/11/2008 6:44 PM IMMIGRATION CASE MANAGER) P athologist Signature Strep Screen SEE TEXT HP CONVERSION Comment: Patient: SHASHANK HASTINGS Rapid Strep Follow up Culture ? Collected: ??[id number] ??[id number] Source: Throat ?Processed: ??[id number] ??[id number] ? 1V Final Report ------ ?[id number] ??[id number] No beta hemolytic Strep group A isolated . Specimen (Source) Anatomical Collection Method Collection Time Re ceived Time Location / / Volume Laterality 10/11/2008 6:44 PM IMMIGRATION CASE MANAGER Blaine Medina MD LAB_1 Performing Organization Address City/State/ZIP Code Phon e Number HP CONVERSION documented in this encounter Visit Diagnoses Not on filedocumented in this encounter Care Teams Training Specialist Relationship Specialty Start Date End Date Unassigned, Provider PCP - General 10/27/00 12/02/15 [address] [place] [address] documented as of this encounter
--- NOTE | 2022-10-19 08:00 | CRLHL7_ITS ---
For Patients: As a result of the Cures Act, medical imaging exams and procedure reports are released immediately into your electronic medical record. You may view this report before your referring provider. If you have questions, please contact your health care provider. [facility] ??? [facility] MYOCARDIAL PERFUSION SCAN, 10/19/2022 CLINICAL HISTORY: 62-year-old male. Chest pain. Right bundle branch block. Hyperlipidemia. Type 2 diabetes. CVA. Prior smoker. Height: 5 feet 8 inches. Weight: 230 pounds. TECHNIQUE: (Resting SPECT and Stress Gated SPECT with wall motion and ejection fraction) Stress: Pharmacologic - Regadenoson (0.4 mg) (IV) Dose (Stress/Rest): 37.9 mCi / 10.44 mCi Tc-99m Sestamibi Comparison: None FINDINGS: There is good uptake of activity by the left ventricle. No left ventricular enlargement is noted. End diastolic volume: 75 mL. End systolic volume: 16 mL. There are no significant fixed or reversible defects identified. Gated images demonstrate a normal left ventricular ejection fraction of greater than 70 percent. No regional wall motion abnormalities are identified. IMPRESSION: 1) No evidence of significant myocardial ischemia or infarction. 2) Normal left ventricular ejection fraction of greater than 70 percent. This study was jointly reviewed by radiology and cardiology. LD AMANDA M.D. Diagnostic/Nuclear Medicine Radiologist [email or web address] ISAAC M.D. Department of Cardiology stiven/Dictated by: Ld Amanda MD @ 10/19/2022 10:25:00 AM (Electronically Signed)
[2022-10-19 09:58] VITALS: BP 130/78; PULSE 96; RESP 16
[2022-10-19] MEDS: SODIUM CHLORIDE 0.9 % (FLUSH) 10 ML SYRINGE IVF (10:12)
[2022-10-19] MEDS: REGADENOSON 0.4 MG/5 ML SYRINGE IVP (10:12)
--- NOTE | 2022-10-19 10:42 | PM.ST ---
Stress Test Note Date Date Seen: 10/19/22 Providers Primary care provider: Kassandra Marshall Stress test physician: Sami Sanchez Stress Test Note Stress test ordered: Lexiscan Indication for test: Chest pain Stress test medicine: Lexiscan Results discussion: Julia gentlejunior presents for the above test after discussion the risks benefits and side effects he would like to proceed pretest EKG shows right bundle branch block configuration, no acute ST wave changes, sinus, with the ventricular rate of 70 and a blood pressure 125/82. Standard Lexiscan nonwalking protocol is used, there is no complications he had no symptoms at all, he recovered in then recovery phase, with no complications, review of the tracing showed no change from his baseline abnormalities. Impression: Negative electrographic portion of Lexiscan Follow up suggested: Follow-up with primary care suggested, clinical correlation with nuclear read which will be read by nuclear Medicine and Cardiology. Patient left this testing facility in excellent condition.
== END 2022-10-19 11:15 | disposition home or self-care (01) ==
PROVIDERS: PCP Physician Assistant Medical; Visit Provider Family Medicine
DX: R07.9 Chest pain, unspecified (principal); R06.00 Dyspnea, unspecified; E78.5 Hyperlipidemia, unspecified
CPT/HCPCS: 78452; 93016; 93017; A9500; J2785

== ENCOUNTER 2023-03-21 16:15 | Observation (INO) | payer MEDICARE, OTHER, SELFPAY ==
[2023-03-21] VITALS (26 sets, daily range): BP systolic 101–142; BP diastolic 48–97; PULSE 48–59; RESP 16–18; TEMP 36–37; O2SAT 90–97; BMI 34.5; BMI 35.6
--- NOTE | 2023-03-21 16:28 | ED.NURSE ---
Dr Dawkins updated and seeing pt.
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
--- NOTE | 2023-03-21 16:34 | CRLHL7_ITS ---
For Patients: As a result of the Century Cures Act, medical imaging exams and procedure reports are released immediately into your electronic medical record. You may view this report before your referring provider. If you have questions, please contact your health care provider. INDICATION: Episode of diplopia. TECHNIQUE: Noncontrast CT images acquired through the brain. COMPARISON: None. FINDINGS: The ventricles are normal in size for patient age. No mass effect or midline shift. The fernandez-white differentiation is maintained. Small to moderate chronic infarction involving the right insula and right operculum. No acute intracranial hemorrhage or pathologic extra-axial fluid collection. The globes are symmetric. The calvarium is intact. Mild ethmoid and sphenoid sinus mucosal thickening. The mastoid air cells are clear. IMPRESSION: 1. No acute intracranial hemorrhage or mass effect. 2. Small to moderate chronic infarction involving the right insula and right operculum. Please note that all CT scans at this facility use dose modulation, iterative reconstruction, and/or weight-based dosing when appropriate to reduce radiation dose to as low as reasonably achievable. Dictated by Cameron Villa MD @ 03/21/2023 6:09:44 PM (Electronically Signed)
--- NOTE | 2023-03-21 16:36 | CRLHL7_ITS ---
For Patients: As a result of the Century Cures Act, medical imaging exams and procedure reports are released immediately into your electronic medical record. You may view this report before your referring provider. If you have questions, please contact your health care provider. DATE: 03/21/2023 CLINICAL HISTORY: Patient with diplopia. Prior stroke. TECHNIQUE: Standard helical CT image acquisition of the neck up to the skull base after bolus intravenous contrast enhancement. Multiplanar reconstructed images performed on a separate workstation. 3D MIP images for post-processing were performed and interpreted on an independent workstation and 3D images were permanently archived. COMPARISON: CT same day. FINDINGS: The origins of the great vessels from the aortic arch are patent. The origin of the right vertebral artery is patent. The origin of the left vertebral artery is patent. The common carotid arteries are patent. There is no stenosis at the origin of the right internal carotid artery. There is no stenosis at the origin of the left internal carotid artery. The rest of the cervical segments of the internal carotid arteries are patent up to the skull base. The left vertebral artery is dominant. The cervical segments of the vertebral arteries are patent up to the skull base. The visualized intracranial vasculature is unremarkable. The visualized lung apices are unremarkable. The thyroid gland is unremarkable. The soft tissues of the neck are unremarkable. There are degenerative changes in the cervical spine. IMPRESSION: Normal CT angiogram of the neck. Please note that all CT scans at this facility use dose modulation, iterative reconstruction, and/or weight-based dosing when appropriate to reduce radiation dose to as low as reasonably achievable. Dictated by Beatriz Cobb MD @ 03/22/2023 6:42:26 AM (Electronically Signed)
--- NOTE | 2023-03-21 16:36 | CRLHL7_ITS ---
For Patients: As a result of the Century Cures Act, medical imaging exams and procedure reports are released immediately into your electronic medical record. You may view this report before your referring provider. If you have questions, please contact your health care provider. DATE: 03/21/2023 CLINICAL HISTORY: Patient with diplopia. Prior stroke. TECHNIQUE: Standard helical CT image acquisition through the intracranial circulation following intravenous administration of contrast material with bolus tracking. Multiplanar reconstructed images were performed and interpreted. 3D MIP images for post-processing were performed and interpreted on an independent workstation and 3D images were permanently archived. COMPARISON: CT same day. FINDINGS: There is no cerebral aneurysm or large vessel occlusion. The right internal carotid artery is normal. The right middle cerebral artery and its branches are normal. The right anterior cerebral artery and its branches are normal. The left internal carotid artery is normal. The left middle cerebral artery and its branches are normal. The left anterior cerebral artery and its branches are normal. The anterior communicating artery is well visualized and appears normal. The right vertebral artery and PICA are normal. The left vertebral artery and PICA are normal. The left vertebral artery is dominant. The basilar artery is patent and appears normal. The right posterior cerebral artery is normal. The left posterior cerebral artery is normal. The visualized venous structures are patent. IMPRESSION: Normal CT angiogram of the head without intracranial aneurysm or other neurovascular abnormality. Please note that all CT scans at this facility use dose modulation, iterative reconstruction, and/or weight-based dosing when appropriate to reduce radiation dose to as low as reasonably achievable. Dictated by Beatriz Cobb MD @ 03/22/2023 6:44:33 AM (Electronically Signed)
--- OUTSIDE RECORDS SUMMARY | 2023-03-21 16:44 | XMS_ITS | Continuity of Care Document ---
Author Name Unknown Organization [facility] enter Address [address] [place] [id number] Phone Care Team Providers Care Artist Agent Name Role Phone [facility] Unavailable Unava ilable Procedures Procedure Date N BLOCK, OTHER PERIPHERAL N BLOCK, OTHER PERIPHERAL Pt doc no events on discharg Pt w/o preop order iv ab pro Advance Directives Directive Yes / No Effective Date File Name No Information Encounters Encounter Description Practice Location Reason(s) For Visit Diagnoses Date Provider Providers Copied on Encounter [facility], [address] [place] [address], [id number], tel:[phone] [facility] No Information 3 [facility]. [address] [place] [address], [id number], . tel:[phone] Referring Provider: Vitaly Bah, [address] [facility] [address], [place], [address]. tel:[phone] Family History Family Member Type Diagnosis Age At Onset No Information Payers Payer name Insurance type Covered democrat ID Authoriza tianshul(s) Medicare MB [id number] [facility] [id number] Social History Type Description Quantity Date Captured Comments Sex Male Smoking Status No Information Chief Complaint And Reason For Visit No Information Reason For Referral Reason For Referral No Information Plan Of Treatment Date Type Action Status No Information History Of Present Illness Encounter Date Complaint History Of Prese nt Illness No Information Functional Status Date Functional Assessmen t No Information Instructions Date Instruction Additional Infor mation No Information Assessments Type Assessment Date No Information Patient Care Teams Name Effective Dates (start - stop) Status Members No Information
--- OUTSIDE RECORDS SUMMARY | 2023-03-21 16:44 | XMS_ITS | Continuity of Care Document ---
Author Name Unknown Organization 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 Name Role Phone Vitaly Bah MD Unavailable Unavailable Allergies, Adverse Reactions, Alerts Substance Reaction Status Criticality No Known Allergies Active No Inform ation Medications Medication Instructions Dosage Effective Dates (start - stop) Status Comments methocarbamol 750 mg tablet take 1 tablet by oral route 3 times every day 750 MG - Active pregabalin 25 mg capsule take 1 capsule by oral route 3 times every day 25 MG - Active Vitamin D3 125 mcg (5,000 unit) tablet - Active fluoxetine 20 mg tablet take 1 tablet by oral route every day in the morning 20 MG - Active ezetimibe 10 mg tablet take 1 tablet by oral route every day 10 MG - Active propranolol ER 60 mg capsule,24 hr,extended release take 1 capsule by oral route every day 60 MG - Active rosuvastatin 40 mg tablet take 1 tablet by oral route every day 40 MG - Active metformin 500 mg tablet take 1 tablet by oral route every day with morning and evening meals 500 MG - Active hydrocodone 5 mg-acetaminophen 325 mg tablet take 1 tablet by oral route every 6 hours as needed for pain 1.00 tablet - Active aspirin 81 mg tablet,delayed release take 1 tablet by oral route every day 81 MG - Active pantoprazole 40 mg tablet,delayed release take 1 tablet by oral route every day 40 MG - Active hydrocodone 7.5 mg-acetaminophen 325 mg tablet take 1 tablet by ORAL route 2 times every day prn pain 1 tablet - Active Procedures Procedure Date N BLOCK, OTHER PERIPHERAL BILATERAL OFFICE/OUTPATIENT VISIT, EST Disabilty Reports Forms [facility] OFFICE/OUTPATIENT VISIT, EST Nerve Block Other Peripheral LEFT Ultrasound Guidance LRN Tax [facility] OFFICE/OUTPATIENT VISIT, EST [facility] OFFICE CONSULTATION Advance Directives Directive Yes / No Effective Date File Name No Information Encounters Encounter Description Practice Location Reason(s) For Visit Diagnoses Date Provider Providers Copied on Encounter [facility], [address] [place] [address], [id number] , [place] tel:[phone] [facility] Occipital neuralgia 3 Niurka Haider. [address] [facility], [address], [place], [place], [id number], [place]. tel:[phone] Referring Provider: Vitaly Cruz, [address] [place] [address], [address]. tel:[phone] OFFICE/OUTPAT IENT VISIT, EST [facility], [address] [place] [address], [id number] , [place] tel:[phone] [facility] Widespread pain (chief complaint) Chronic pain syndromeOccip ital neuralgiaPain in left footPain in right footCervicalg iaOther spondylosis with radiculopathy , lumbar region 3 Laurelizeth Davisse. [id number] [place] [address] [address], [place], [place], [id number], [place]. 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 tel:[phone] Workers Compensation .Referring Provider: Vitaly Cruz, [address] [place] [address], [id number]. tel:[phone] [facility], [address] [place] [address], [id number] , [place] tel:[phone] [facility] No Information 8 Pepe Mcmillan. [address] [place] [address], [id number], [place]. tel:[phone] Referring Provider: Vitaly Cruz, [address] [place] [address], [address]. tel:[phone] OFFICE/OUTPAT IENT VISIT, [facility], [address] [place] [address], [id number] , [place] [phone] [facility] Leg Pain (chief complaint) Pain in left kneeOther chronic postprocedura l painPain in left leg March- 3201 8 Pepe Mcmillan. [address] [place] [address], [id number], [place]. tel:[phone] Mix[employer] Operator [employer]: Tonya Stern, [facility] [address], [place], [address]. tel:[phone] Workers Compensation .Referring Provider: Vitaly Cruz, [address] [place] [address], [address]. tel:[phone] [facility], [address] [place] [address], [id number] , [place] [phone] [facility] Pain in left leg March- 0-201 8 Kate Suresh. [address] [place] [address], [id number], [place]. tel:[phone] OFFICE/OUTPAT IENT VISIT, [facility], [address] [place] [address], [id number] , [place] [phone] [facility] Leg Pain (chief complaint) Other chronic postprocedura l painPain in left kneePain in left leg Apr- 1-201 8 Pepe Mcmillan. [address] [place] [address], [id number], [place]. tel:[phone] [employer]: Tonya Stern, [facility] [address], [place], [address]. tel:[phone] Workers Compensation . OFFICE CONSULTATION [facility], [address] [place] [address], [id number] , [place] tel:[phone] [facility] Leg Pain (chief complaint) Pain in left legPain in left kneeOther chronic postprocedura l pain 8 Pepe Mcmillan. [address] [place], [place], [id number], [place]. tel:[phone] Mix[employer] Operator [employer]: Tonya Stern, [facility] [address], [place], [address]. tel:[phone] Workers Compensation . [facility], [address] [place], [place], [id number] , [place] tel:[phone] [facility] [place] No Information 8 Kulwinder Haider. [address] [place], [place], [id number], [place]. tel:[phone] Family History Family Member Type Diagnosis Age At Onset No Information Payers Payer name Insurance type Covered green party ID Authoriza tion(s) Medicare [id number] [facility] [id number] Social History Type Description Quantity Date Captured Comments Sex Male Smoking Status No Information Chief Complaint And Reason For Visit No Information Reason For Referral Reason For Referral No Information Plan Of Treatment Date Type Action Status Goal Height. Due on d ue Goal Unhealthy drug use screening . Due on due Goal Update Social History. Due o n due Goal Lipid panel. Due on 023 due Goal FIT-DNA. Due on due Goal Zoster vaccine (1st). Due on due Goal Hepatitis C screening. Due o n due Goal Review Allergy List. Due on due Goal Medication Reconciliation. D ue on due Goal CT-Colonography. Due on due Goal PHQ-9. Due on du e Goal FIT. Due on due Goal Tobacco Use. Due on 023 due Goal Weight. Due on d ue Referral Ordered: MRI LUMBAR SPINE W/O DYE ordered History Of Present Illness Encounter Date Complaint History Of Prese nt Illness Widespread pain Severity level i s 6. Location of the pain is lower back, neck, bilateral hip and BL feet. The client describes it as achy. It occurs persistently. Symptom is aggravated by walking upstairs, walking downstairs, running, walking and changing positions. Relieving factors include massage, rest, Rx Meds, PT and chiropractic. Pertinent negatives include diarrhea, dyspnea, fever and incontinence (urinary). Comments: Shashank is a 62 y/o man here for initial consult regarding chronic widespread pain, referred by Dr. Suarez. Of note, patient was previously seen in clinic by [facility], but not since March 2018. Pain is characterized as aching pain, and is located at the base of his skull, right side of his neck, throughout his back, BL hips, and BL lateral feet. Pain began five years ago and pain level averages 6/10. Utilizes shoe inserts for BL foot support. Previously offered DRG, though has since undergone tibia/fibula previous surgery and subsequent hardware placement which alleviated most of his pain. Notes hx of stroke in 2007.Reports that he recently completed lumbar imaging at [facility], available for review.Currently attends PT at [facility], and is managed on Lyrica 25mg TID and [place] 5-325mg.Shashank is interested in pain management through [facility]. Inquires about being prescribed a muscle relaxant. No other concerns today. Leg Pain (comments) Shashank is he re for a followup. Peroneal injection with steroid completed 03/30 provided pain relief x2-3 days, then pain returned to baseline. Continues to have shooting pain down LLE to his toes, has numbness in last 4 toes. Does not feel his L ankle and L knee ROM is improving, believes it is the same. Unable to walk long distances before his L leg loli, only able to walk short distances. Has increased Gabapentin to 4 caps/day, does not notice any pain relief, but is having issues with drowsiness. Tizanidine and Voltaren gel continues to provide good pain relief. Uses a H-wave TENS unit for his leg and is somewhat helpful. Does note occasional swelling in his L calf. PT was previously completed at [facility] in February; on hold pedning results from peroneal block. Did see some improvement in his pain with quadriceps massage from PT previously. He is accompanied by his . QRC is also present during today's OV. Leg Pain Duration: chroni c. Severity level is 4. It occurs constantly and is fluctuating. Location: left leg. The pain is aggravated by bending, climbing (and descending) stairs, lifting, movement, walking, standing, twistinng and housework. The pain is relieved by rest, stretching, lying down, TENS and sitting. Leg Pain (comments) Shashank is he re for follow up. He c/o sleepiness with the gabapentin 1200mg/day but is trying to work through it. Met with an Dr Flor (ortho) in [place] for an evaluation and surgery was not recommended for him; per [facility], pt's quadriceps is not firing so physical therapy, perineal nerve block, and medication management was recommended to return to regular gait. Went to physical therapy ([facility]) yesterday and received massage, which initially was painful but provided some relief. Voltaren gel provided pain relief and requested a refill. Denies trying muscle relaxants. On Old Lyme for unrelated issue, and does not find it helpful for his leg pain. Leg Pain Duration: chroni c. Severity level is 5. It occurs constantly and is fluctuating. Location: left lower leg/pacheco. There is no radiation. The pain is aching and burning. The pain is aggravated by bending, walking, standing, stairs and prolonged positioning. The pain is relieved by massage, physical therapy and sitting. Pertinent negatives include difficulty initiating sleep. Leg Pain Onset: on 2014. Duration: chronic. Severity level is 4. The problem is fluctuating. Location: left knee (lateral). The pain radiates to the left calf, ankle, foot. The pain is aching and stabbing. Context: there is an injury. The pain is aggravated by bending, lifting, walking, standing, movement and stairs. The pain is relieved by physical therapy, rest, lying down, sitting and h-wave. Leg Pain (comments) Carlo is refer red by Dr. Morales for initial consult of left leg pain. Pain began 08/15/2015 while pushing a table at work. He reports hearing a pop and felt immediate pain of his left knee. Was found to have inflamed tibia/fibula. Was sent to Dr. Morales by [facility] for a tib/fib fusion, completed 09/2016. Carlo continued to have pain following surgery, and hardware was removed 08/08/2017. Per QRC, X-rays done 04/2017 showed that fusion was not complete but Dr. Morales felt it was complete enough. CT done 08/2017. EMG completed and was normal. Continues to have extreme pain and limited range of motion. States that he cannot extend his leg normally, which is effecting his gait; only able to walk half a block. 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 Denies ortho evaluation for a second opinion following hardware removal. Last completed physical therapy 09/2017. Tried left knee injections with little relief. Using h-wave, which provides some pain relief and increases ROM. Denies medications for left knee pain, but does take Vicodin BID for headaches. Never tried gabapentin, Cymbalta, or OTC topicals. A QRC is present at the appointment and contributes to today's discussion. Functional Status Date Functional Assessmen t No Information Instructions Date Instruction Additional Infor mation No Information Assessments Type Assessment Date No Information Patient Care Teams Name Effective Dates (start - stop) Status Members No Information
[2023-03-21 17:16] LABS: Basophils Absolute Auto 0.09 K/uL (0.00-0.30); Basophils Percent Auto 0.8 % (0.0-3.0); Eosinophils Absolute Auto 0.58 K/uL (0.00-0.50); Eosinophils Percent Auto 5.4 % (0.0-7.0); Hematocrit 51.4 % (37.0-53.0); Hemoglobin* 16.8 gm/dL (13.5-17.5); Immature Granulocytes Abs Auto 0.02 K/uL (0.00-0.30); Immature Granulocytes Pct Auto 0.2 %; Lymphocytes Percent Auto 45.6 % (20-44); Mean Corpuscular HGB Conc 33 gm/dL (32-36); Mean Corpuscular Hemoglobin 29 pg (26-34); Mean Corpuscular Volume 89 fL (80-100); Monocytes Percent Auto 9.8 % (0.0-11.0); Neutrophils Percent Auto 38.2 % (42.0-72.0); Platelet Count* 303 K/uL (140-440); RDW Coefficient of Variation % 13.6 % (11.5-15.5); Red Blood Count 5.76 m/uL (4.30-5.90); White Blood Count* 10.76 K/uL (4.50-11.00)
[2023-03-21 17:49] LABS: Slide Review Reflex No
[2023-03-21 18:15] LABS: Albumin* 3.5 g/dL (3.3-5.0); Chloride* 107 mmol/L (96-114)
[2023-03-21 18:16] LABS: Potassium* 4.2 mmol/L (3.6-5.1); Sodium* 139 mmol/L (135-149)
[2023-03-21 18:18] LABS: Bilirubin Total* 1.3 mg/dL (0.1-1.5); Creatinine* 0.9 mg/dL (0.5-1.5); Estimated Glomerular Filt Rate 95 ml/min
[2023-03-21 18:19] LABS: Alanine Aminotransferase* 34 U/L (4-50); Alkaline Phosphatase* 72 U/L (40-150); Aspartate Amino Transferase* 31 U/L (12-35); Blood Urea Nitrogen* 15 mg/dL (7-30); Calcium* 8.1 mg/dL (8.4-10.6); Carbon Dioxide* 25 mmol/L (20-32); Glucose* 108 mg/dL (60-115); Total Protein* 6.1 g/dL (6.0-8.3)
[2023-03-21 18:22] LABS: C Reactive Protein* 0.6 mg/dL (0.5-1.0)
[2023-03-21 18:30] LABS: NT Pro B Type NatriureticPept* 49 pg/mL
[2023-03-21 18:31] LABS: INR 0.96 (0.91-1.10); Partial Thromboplastin Time* 25 Seconds (23-33); Prothrombin Time 13.3 Seconds
[2023-03-21 18:37] LABS: Troponin I* < 0.01 ng/mL (0.01-0.04)
--- NOTE | 2023-03-21 20:43 | ED.NURSE ---
Report to DESTIN Hanson. PT will go to room 257
--- OUTSIDE RECORDS SUMMARY | 2023-03-21 20:47 | XMS_ITS | Continuity of Care Document ---
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, [address] [place] [address], [id number] , [place] tel:[phone] [facility] Occipital neuralgia 3 Niurka Haider. [address] [facility], [address], [place], [place], [id number], [place]. tel:[phone] Referring Provider: Vitaly Cruz, [address] [place] [address], [address]. tel:[phone] OFFICE/OUTPAT IENT VISIT, EST [facility], [address] [place] [address], [id number] , [place] tel:[phone] [facility] Widespread pain (chief complaint) Chronic pain syndromeOccip ital neuralgiaPain in left footPain in right footCervicalg iaOther spondylosis with radiculopathy , lumbar region 3 Laurelizteh Davisse. [id number] [place] [address] [address], [place], [place], [id number], [place]. tel:[phone] Reservations Specialist: Tonya Stern, [facility] [address], [address]. tel:[phone] Workers Compensation .Referring Provider: Vitaly Cruz, [address] [place] [address], [address]. tel:[phone] [facility], [address] [place] [address], [id number] , [place] tel:[phone] [facility] No Information 8 Pepe Mcmillan. [address] [place] [address], [id number], [place]. tel:[phone] Referring Provider: Vitaly Cruz, [address] [place] [address], [address]. tel:[phone] OFFICE/OUTPAT IENT VISIT, [facility], [address] [place] [address], [id number] , [place] [phone] [facility] Leg Pain (chief complaint) Pain in left kneeOther chronic postprocedura l painPain in left leg March- 3201 8 Pepe Mcmillan. [address] [place] [address], [id number], [place]. tel:[phone] Reservations Specialist: Tonya Stern, [employer] [address], [place], [address]. tel:[phone] Workers Compensation .Referring Provider: Vitaly Cruz, [address] [place] [address], [address]. tel:[phone] [facility], [address] [place] [address], [id number] , [place] [phone] [facility] Pain in left leg March- 0-201 8 Kate Suresh. [address] [place] [address], [id number], [place]. tel:[phone] OFFICE/OUTPAT IENT VISIT, [facility], [address] [place] [address], [id number] , [place] [phone] [facility] Leg Pain (chief complaint) Other chronic postprocedura l painPain in left kneePain in left leg Apr- 1-201 8 Pepe Mcmillan. [address] [place] [address], [id number], [place]. tel:[phone] Reservations Specialist: Tonya Stern, [facility] [address], [place], [address]. tel:[phone] Workers Compensation . OFFICE CONSULTATION [facility], [address] [place] [address], [id number] , [place] tel:[phone] [facility] [place] Leg Pain (chief complaint) Pain in left legPain in left kneeOther chronic postprocedura l pain 8 Pepe Mcmillan. [address] [place], [place], [id number], [place]. tel:[phone] Reservations Specialist: Tonya Stern, [employer] [address], [place], [address]. tel:[phone] Workers Compensation . [facility], [address] [place], [place], [id number] , [place] tel:[phone] [facility] [place] No Information 8 Kulwinder Haider. [address] [place], [place], [id number], [place]. tel:[phone] Family History Family Member Type Diagnosis Age At Onset No Information Payers Payer name Insurance type Covered green party ID Authoriza tion(s) Medicare [id number] [facility] [id number] Social History Type Description Quantity Date Captured Comments Sex Male Smoking Status No Information Chief Complaint And Reason For Visit No Information Reason For Referral Reason For Referral No Information Plan Of Treatment Date Type Action Status Goal Weight. Due on d ue Goal Tobacco Use. Due on 023 due Goal FIT. Due on due Goal PHQ-9. Due on du e Goal CT-Colonography. Due on due Goal Medication Reconciliation. D ue on due Goal Review Allergy List. Due on due Goal Hepatitis C screening. Due o n due Goal Zoster vaccine (1st). Due on due Goal FIT-DNA. Due on due Goal Lipid panel. Due on 023 due Goal Update Social History. Due o n due Goal Unhealthy drug use screening . Due on due Goal Height. Due on d ue Referral Ordered: MRI [...] patient was previously seen in clinic by [facility], but not since March 2018. Pain is [...] that he recently completed lumbar imaging at [facility], available for review.Currently attends PT at [facility], and is managed on Lyrica 25mg TID and Spencer 5-325mg.Shsahank is interested in pain management through [facility]. Inquires about being prescribed a muscle relaxant. No other concerns today. Leg Pain Duration: chroni c. Severity level is 4. It occurs constantly and is fluctuating. Location: left leg. The pain is aggravated by bending, climbing (and descending) stairs, lifting, movement, walking, standing, twistinng and housework. The pain is relieved by rest, stretching, lying down, TENS and sitting. Leg Pain (comments) Shashank is he re for a followup. Peroneal injection with steroid completed 5/10 provided pain relief x2-3 days, then pain [...] L calf. PT was previously completed at [facility] in February; on hold pedning results from peroneal block. Did see some improvement in his pain with quadriceps massage from PT previously. He is accompanied by his . QRC is also present during today's OV. Leg Pain (comments) Shashank is he re for follow up. He c/o sleepiness with the gabapentin 1200mg/day but is trying to work through it. Met with an Dr Flor (ortho) in [place] for an evaluation and surgery was not recommended for him; per [facility], pt's quadriceps is not firing so physical therapy, perineal nerve block, and medication management was recommended to return to regular gait. Went to physical therapy ([facility]) yesterday and received massage, which initially was painful but provided some relief. Voltaren gel provided pain relief and requested a refill. Denies trying muscle relaxants. On Spencer for unrelated issue, and does not find [...] negatives include difficulty initiating sleep. Leg Pain (comments) Carlo is refer red by Dr. Morales for initial consult of left leg pain. Pain began 08/15/2015 while pushing a table at work. He reports hearing a pop and felt immediate pain of his left knee. Was found to have inflamed tibia/fibula. Was sent to Dr. Morales by [facility] for a tib/fib fusion, completed 09/2016. 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 Leg Pain Onset: on 2014. Duration: chronic. [...] therapy, rest, lying down, sitting and h-wave. Functional Status Date Functional Assessmen t No Information Instructions Date Instruction Additional Infor mation No Information Assessments Type Assessment Date No Information Patient Care Teams Name Effective Dates (start - stop) Status Members No Information
--- OUTSIDE RECORDS SUMMARY | 2023-03-21 20:47 | XMS_ITS | Continuity of Care Document ---
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 Name Role Phone [facility] Center Unavailable Unava ilable Procedures Procedure Date N BLOCK, OTHER PERIPHERAL N BLOCK, OTHER PERIPHERAL Pt doc no events on discharg Pt w/o preop order iv ab pro Advance Directives Directive Yes / No Effective Date File Name No Information Encounters Encounter Description Practice Location Reason(s) For Visit Diagnoses Date Provider Providers Copied on Encounter [facility], [address] [place] [address], [id number], tel:[phone] [facility] No Information 3 [facility]. [address] [place] [address], [id number], . tel:[phone] Referring Provider: Vitaly Bah, [address], [place], [address]. tel:[phone] Family History Family Member Type Diagnosis Age At Onset No Information Payers Payer name Insurance type Covered libertarian ID Authoriza tianshul(s) Medicare MB [id number] [facility] [id number] Social History Type Description Quantity Date Captured [...]
--- OUTSIDE RECORDS SUMMARY | 2023-03-21 20:47 | XMS_ITS | Continuity of Care Document ---
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 Name Role Phone Unavailable Unavailable Unavailable Allergies, Adverse Reactions, Alerts Substance Reaction Status Criticality No Known allergies Medications Medication Instructions Dosage Effective Dates (start - stop) Status Comments Lipitor 20 mg Tab Take 1 tablet by dash th daily - Active Nexium 40 mg Cap Take 1 tablet by dash th daily - Active Procedures Procedure Date Offic Cons New/estab Mod-hi 60 07 Routine Serum Collection Advance Directives Directive Yes / No Effective Date File Name No Information Encounters Encounter Description Practice Location Reason(s) For Visit Diagnoses Date Provider Providers Copied on Encounter [facility], [address] [address], [place], [place], [id number], tel:[phone] [facility] No Information 1 7 No Information Offic Cons New/estab Mod-hi 60 [facility], [address] [address], [place], [place], [id number], tel:[phone] [facility] Pain[facility] PainLU[facility] Pain 0200 7 No Information Family History Family Member Type Diagnosis Age At Onset First degree family history Problem (finding) No Family history of No history of Colon Polyps First degree family history Problem (finding) No history of Cancer, colon First degree family history Problem (finding) No history of Ulcerative Colitis First degree family history Problem (finding) alcoholism First degree family history Problem (finding) No history of Crohn's Payers Payer name Insurance type Covered green party ID Authoriza tion(s) [employer] [facility] [id number] Social History Type Description Quantity Date Captured [...]
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
--- NOTE | 2023-03-21 20:49 | ED.NURSE ---
Pt and belongings brought to room 257 via wc
[2023-03-21] MEDS: ASPIRIN 81 MG TABLET EC PO (21:54)
[2023-03-21] MEDS: OMEPRAZOLE 20 MG CAPSULE DR 40 MG PO (21:54)
--- NOTE | 2023-03-22 | CRLHL7_ITS ---
For Patients: As a result of the Century Cures Act, medical imaging exams and procedure reports are released immediately into your electronic medical record. You may view this report before your referring provider. If you have questions, please contact your health care provider. INDICATION: Diplopia. TECHNIQUE: Multiplanar multisequence noncontrast MR images acquired through the brain. COMPARISON: CT brain 03/21/2023. FINDINGS: The ventricles are normal in size for patient age. No midline shift or hydrocephalus. Few punctate FLAIR hyperintensities scattered in the supratentorial white matter, nonspecific. Small to moderate chronic infarction involving the right insula and right frontal operculum. Susceptibility in the infarct bed may be secondary to hemosiderin deposition or laminar necrosis. No diffusion restriction to suggest acute infarction. No recent intracranial hemorrhage or pathologic extra-axial fluid collection. The major arterial flow voids of the skullbase are preserved. The globes are symmetric. Mild paranasal sinus mucosal thickening. Minimal left mastoid fluid. IMPRESSION: 1. No acute infarction, mass effect, or recent intracranial hemorrhage. 2. Small to moderate chronic right middle cerebral artery territory infarction involving the right insula and right frontal operculum. 3. Few punctate FLAIR hyperintensities in the supratentorial white matter are nonspecific, though typical for sequelae of minimal chronic microvascular ischemic changes or migraine headaches. Dictated by Cameron Villa MD @ 03/22/2023 1:46:26 PM (Electronically Signed)
[2023-03-22] MEDS: ROSUVASTATIN CALCIUM 10 MG TABLET 40 MG PO ×2 (00:02→09:02)
[2023-03-22] MEDS: SUCRALFATE 1 GM TABLET PO ×3 (00:03→14:54)
[2023-03-22 03:00] VITALS: BP 110/69; PULSE 45; RESP 16; TEMP 37; O2SAT 91
--- NOTE | 2023-03-22 06:38 | PC.NURSE ---
pleasant and cooperative. Indep in room. No c/o LARRY, dizziness, or double vision since admin to the floor. On RA while asleep pt O2 sats 88%, placed pt on 1L and is maintaining in the low 90s.?pt states he has a CPAP at home that he hasn?t been using.?Tele = Franc?w/ BBB.
[2023-03-22 07:00] VITALS: BP 113/75; PULSE 48; PULSE 57; RESP 12; TEMP 36.5; O2SAT 95
[2023-03-22] MEDS: METFORMIN ER 500 MG 1000 MG PO (09:02)
[2023-03-22] MEDS: ASPIRIN 81 MG TABLET EC PO (09:02)
[2023-03-22] MEDS: OMEPRAZOLE 20 MG CAPSULE DR 40 MG PO (09:02)
[2023-03-22] MEDS: FLUOXETINE HCL 20 MG CAPSULE PO (09:03)
[2023-03-22] MEDS: EZETIMIBE 10 MG TABLET PO (09:42)
[2023-03-22] MEDS: SODIUM CHLORIDE 0.9 % (FLUSH) 10 ML SYRINGE 5 ML IVF (09:44)
[2023-03-22] MEDS: PREGABALIN 25 MG CAPSULE 50 MG PO ×2 (09:58→14:54)
[2023-03-22 11:00] VITALS: BP 125/71; PULSE 56; RESP 19; TEMP 36.8; O2SAT 96
[2023-03-22 12:19] VITALS: PULSE 48; RESP 12
[2023-03-22] MEDS: diphenhydrAMINE 25 MG CAPSULE PO (12:57)
[2023-03-22 15:00] VITALS: BP 117/64; PULSE 59; RESP 12; RESP 16; TEMP 36.8; O2SAT 94
--- NOTE | 2023-03-22 15:32 | PM.DS1 ---
DS: Providers Provider Time Seen by Provider: 09:15 Date Seen: 03/22/23 Date of admission: 03/21/23 20:45 Primary care physician: Kassandra Marshall PA-C Admitting Clinician: Shashank Reid MD Attending Physician on discharge: Ev Arana MD Date of Discharge: 03/22/23 DS: Diagnosis Discharge Diagnosis (1) Diplopia: Status: Acute Problem details: Brief episode of vertical diplopia. Head CT shows old stroke. Preliminary angiogram shows no large vessel occlusion. MRI shows no acute stroke. - Suspect migraine aura versus related to RENÉ. (2) Chronic headaches: Status: Acute Problem details: Chronic daily headaches. (3) Fatigue: Status: Acute Problem details: Probably multifactorial, including daily migraine headache, but untreated sleep apnea is probably the most important contributor. Recommend resuming use of BiPAP at home. (4) Diabetes mellitus: Status: Acute Problem details: Probably fairly well controlled. Could be contributing to diplopia as well (5) Obstructive sleep apnea syndrome: Status: Acute Problem details: Stopped using his BiPAP over a year ago when there was a recall. Has had very poor quality sleep and chronic daytime fatigue since then. Resume home BiPAP (6) Migraine headache: Status: Chronic (7) Cerebrovascular accident (CVA): Status: Chronic Problem details: Resolved. He does have residual one-sided weakness, he utilizes a cane. He has dealt with chronic headaches On baby aspirin On statin therapy and Zetia On metformin to reduce/slow progression of diabetes (8) Hyperlipidemia: Status: Chronic (9) GERD (gastroesophageal reflux disease): Status: Chronic Problem details: Reports ongoing problems with belching. DS: Summary Hospital Course Hospital Course: Patient has had an episode double vision. No evidence of acute stroke on scans. History indicates possible migraine aura versus excessive daytime sleepiness, likely related to untreated RENÉ. Discharged home in stable and improved condition. Time Spent with Patient Time attestation: Total time spent providing and/or coordinating discharge services: Exam Narrative: Exam Narrative: General: No acute distress. Awake, alert, oriented x3. No pallor. No jaundice. Oropharynx: Clear. Mucous membranes moist. Cardiovascular: Regular rate and rhythm. No murmurs, gallops, or rubs. Respiratory: Clear to auscultation bilaterally. No wheezes or crackles. Abdomen: Bowel sounds present. Soft, nondistended, nontender. Neuro: There are no new focal deficits. Romberg is negative. Cranial nerves 2-12 are intact. Extraocular movements are full. No nystagmus. No facial asymmetry. Tongue is midline. Peripheral vision and vision are grossly intact. Strength is 5/5 in all 4 extremities, mildly weak LLE. DTRs intact and symmetric. Light touch sensation is intact in face body and extremities. Coordination is intact in upper and lower extremities. Const: Vital Signs, click to edit/add: Vital Signs - 24 hr 03/21/23 16:19 03/21/23 16:35 03/21/23 16:50 Temperature 96.8 F L Pulse Rate Pulse Rate [Pulse Oximeter] 55 L 56 L 54 L Respiratory Rate 18 18 18 Blood Pressure [Le ft Arm] Blood Pressure [Ri ght Upper Arm] 104/71 107/62 102/64 Pulse Oximetry 95 94 95 [facility] Room Air Oxygen Flow Rate 03/21/23 17:05 03/21/23 17:20 03/21/23 17:35 Temperature Pulse Rate Pulse Rate [Pulse Oximeter] 52 L 53 L 54 L Respiratory Rate 16 18 16 Blood Pressure [Le ft Arm] Blood Pressure [Ri ght Upper Arm] 107/64 108/66 110/64 Pulse Oximetry 95 96 94 [facility] Room Air Room Air Oxygen Flow Rate 03/21/23 17:50 03/21/23 18:05 03/21/23 18:20 Temperature Pulse Rate Pulse Rate [Pulse Oximeter] 51 L 50 L 50 L Respiratory Rate 16 18 18 Blood Pressure [Le ft Arm] Blood Pressure [Ri ght Upper Arm] 101/62 105/66 111/67 Pulse Oximetry 93 92 93 [facility] Room Air Oxygen Flow Rate 03/21/23 18:45 03/21/23 18:50 03/21/23 19:20 Temperature Pulse Rate Pulse Rate [Pulse Oximeter] 51 L 49 L 48 L Respiratory Rate 18 18 Blood Pressure [Le ft Arm] Blood Pressure [Ri ght Upper Arm] 116/65 103/62 112/70 Pulse Oximetry 90 92 92 [facility] Room Air Oxygen Flow Rate 03/21/23 19:50 03/21/23 19:55 03/21/23 20:00 Temperature Pulse Rate Pulse Rate [Pulse Oximeter] 49 L 52 L 51 L Respiratory Rate 18 18 18 Blood Pressure [Le ft Arm] Blood Pressure [Ri ght Upper Arm] 104/70 110/59 L 107/61 Pulse Oximetry 93 95 95 Oxygen Delivery Me thod Room Air Oxygen Flow Rate 03/21/23 20:05 03/21/23 20:10 03/21/23 20:15 Temperature Pulse Rate Pulse Rate [Pulse Oximeter] 50 L 53 L 55 L Respiratory Rate 18 18 18 Blood Pressure [Le ft Arm] Blood Pressure [Ri ght Upper Arm] 112/64 122/60 118/73 Pulse Oximetry 93 97 97 Oxygen Delivery Me thod Oxygen Flow Rate 03/21/23 20:20 03/21/23 20:25 03/21/23 20:30 Temperature Pulse Rate Pulse Rate [Pulse Oximeter] 55 L 50 L 50 L Respiratory Rate 18 18 18 Blood Pressure [Le ft Arm] Blood Pressure [Ri ght Upper Arm] 119/75 131/97 H 125/56 L Pulse Oximetry 96 96 96 Oxygen Delivery Me thod Oxygen Flow Rate 03/21/23 20:35 03/21/23 21:17 03/21/23 21:17 Temperature 97.6 F Pulse Rate Pulse Rate [Pulse Oximeter] 50 L 57 L Respiratory Rate 18 18 18 Blood Pressure [Le ft Arm] 142/84 H Blood Pressure [Ri ght Upper Arm] 122/75 Pulse Oximetry 96 96 96 Oxygen Delivery Me [facility]od Room Air Room Air Oxygen Flow Rate 03/21/23 22:08 03/21/23 22:40 03/21/23 23:00 Temperature Pulse Rate 48 L Pulse Rate [Pulse Oximeter] 59 L 51 L Respiratory Rate 18 16 Blood Pressure [Le ft Arm] Blood Pressure [Ri ght Upper Arm] 122/48 L Pulse Oximetry 96 Oxygen Delivery Me thod Oxygen Flow Rate 03/21/23 23:00 03/22/23 03:00 03/22/23 07:00 Temperature 98.6 F 98.6 F Pulse Rate 57 L Pulse Rate [Pulse Oximeter] 51 L 45 L Respiratory Rate 18 16 Blood Pressure [Le ft Arm] 120/75 110/69 Blood Pressure [Ri ght Upper Arm] Pulse Oximetry 93 91 Oxygen Delivery Me [facility]od Room Air Nasal Cannula Oxygen Flow Rate 1 03/22/23 07:00 03/22/23 07:00 03/22/23 11:00 Temperature 97.7 F 98.2 F Pulse Rate Pulse Rate [Pulse Oximeter] 48 L 57 L 56 L Respiratory Rate 12 12 19 Blood Pressure [Le ft Arm] 113/75 125/71 Blood Pressure [Ri ght Upper Arm] Pulse Oximetry 95 96 Oxygen Delivery Me thod Room Air Room Air Oxygen Flow Rate 03/22/23 12:19 Temperature Pulse Rate Pulse Rate [Pulse Oximeter] 48 L Respiratory Rate 12 Blood Pressure [Le ft Arm] Blood Pressure [Ri ght Upper Arm] Pulse Oximetry Oxygen Delivery Me thod Oxygen Flow Rate Documenting provider has reviewed patient's vital signs: yes DS: Data Data Completed and Pending Completed studies during hospitalization: Ordering Physician: Lucero Arenas M.D. Date of Service: 03/21/23 Procedure(s): CT head/brain wo con Accession Number(s): [id number] cc: Kassandra JAMES; Lucero Arenas M.D.~ For Patients: As a result of the Cures Act, medical imaging exams and procedure reports are released immediately into your electronic medical record. You may view this report before your referring provider. If you have questions, please contact your health care provider. INDICATION: Episode of diplopia. TECHNIQUE: Noncontrast CT images acquired through the brain. COMPARISON: None. FINDINGS: The ventricles are normal in size for patient age. No mass effect or midline shift. The fernandez-white differentiation is maintained. Small to moderate chronic infarction involving the right insula and right operculum. No acute intracranial hemorrhage or pathologic extra-axial fluid collection. The globes are symmetric. The calvarium is intact. Mild ethmoid and sphenoid sinus mucosal thickening. The mastoid air cells are clear. IMPRESSION: 1. No acute intracranial hemorrhage or mass effect. 2. Small to moderate chronic infarction involving the right insula and right operculum. Please note that all CT scans at this facility use dose modulation, iterative reconstruction, and/or weight-based dosing when appropriate to reduce radiation dose to as low as reasonably achievable. Dictated by Cameron Villa MD @ 03/21/2023 6:09:44 PM (Electronically Signed) Ordering Physician: Lucero Arenas M.D. Date of Service: 03/21/23 Procedure(s): CT angio neck Accession Number(s): [id number] cc: Kassandra JAMES; Lucero Arenas M.D.~ For Patients: As a result of the Cures Act, medical imaging exams and procedure reports are released immediately into your electronic medical record. You may view this report before your referring provider. If you have questions, please contact your health care provider. DATE: 03/21/2023 CLINICAL HISTORY: Patient with diplopia. Prior stroke. TECHNIQUE: Standard helical CT image acquisition of the neck up to the skull base after bolus intravenous contrast enhancement. Multiplanar reconstructed images performed on a separate workstation. 3D MIP images for post-processing were performed and interpreted on an independent workstation and 3D images were permanently archived. COMPARISON: CT same day. FINDINGS: The origins of the great vessels from the aortic arch are patent. The origin of the right vertebral artery is patent. The origin of the left vertebral artery is patent. The common carotid arteries are patent. There is no stenosis at the origin of the right internal carotid artery. There is no stenosis at the origin of the left internal carotid artery. The rest of the cervical segments of the internal carotid arteries are patent up to the skull base. The left vertebral artery is dominant. The cervical segments of the vertebral arteries are patent up to the skull base. The visualized intracranial vasculature is unremarkable. The visualized lung apices are unremarkable. The thyroid gland is unremarkable. The soft tissues of the neck are unremarkable. There are degenerative changes in the cervical spine. IMPRESSION: Normal CT angiogram of the neck. Please note that all CT scans at this facility use dose modulation, iterative reconstruction, and/or weight-based dosing when appropriate to reduce radiation dose to as low as reasonably achievable. Dictated by Beatriz Cobb MD @ 03/22/2023 6:42:26 AM (Electronically Signed) Ordering Physician: Shashank Reid M.D. Date of Service: 03/22/23 Procedure(s): MR head/brain wo con Accession Number(s): [id number] cc: Shashank Reid M.D.; Kassandra JAMES~ For Patients: As a result of the Cures Act, medical imaging exams and procedure reports are released immediately into your electronic medical record. You may view this report before your referring provider. If you have questions, please contact your health care provider. INDICATION: Diplopia. TECHNIQUE: Multiplanar multisequence noncontrast MR images acquired through the brain. COMPARISON: CT brain 03/21/2023. FINDINGS: The ventricles are normal in size for patient age. No midline shift or hydrocephalus. Few punctate FLAIR hyperintensities scattered in the supratentorial white matter, nonspecific. Small to moderate chronic infarction involving the right insula and right frontal operculum. Susceptibility in the infarct bed may be secondary to hemosiderin deposition or laminar necrosis. No diffusion restriction to suggest acute infarction. No recent intracranial hemorrhage or pathologic extra-axial fluid collection. The major arterial flow voids of the skullbase are preserved. The globes are symmetric. Mild paranasal sinus mucosal thickening. Minimal left mastoid fluid. IMPRESSION: 1. No acute infarction, mass effect, or recent intracranial hemorrhage. 2. Small to moderate chronic right middle cerebral artery territory infarction involving the right insula and right frontal operculum. 3. Few punctate FLAIR hyperintensities in the supratentorial white matter are nonspecific, though typical for sequelae of minimal chronic microvascular ischemic changes or migraine headaches. Dictated by Cameron Villa MD @ 03/22/2023 1:46:26 PM (Electronically Signed) 03/21/2023 5:55 p.m. EKG: Sinus bradycardia, 57 beats per minute. Right bundle-branch block. Labs on day of discharge: Labs from last 24 hours 03/21/23 17:05 WBC 10.76 RBC 5.76 Hgb 16.8 Hct 51.4 MCV 89 MCH 29 MCHC 33 RDW Coeff of Toy 13.6 Plt Count 303 Neut % (Auto) 38.2 L Lymph % (Auto) 45.6 H Young % (Auto) 9.8 Eos % (Auto) 5.4 Baso % (Auto) 0.8 Neut # (Auto) 4.10 Lymph # (Auto) 4.90 H Young # (Auto) 1.10 H Eos # (Auto) 0.58 H Baso # (Auto) 0.09 INR 0.96 APTT 25 Sodium 139 Potassium 4.2 Chloride 107 Carbon Dioxide 25 BUN 15 Creatinine 0.9 Estimated Creat Clear 72.20 Estimated GFR 95 Glucose 108 Calcium 8.1 L Total Bilirubin 1.3 AST 31 ALT 34 Alkaline Phosphatase 72 Troponin I < 0.01 L C-Reactive Protein 0.6 NT-Pro-B Natriuret Pep 49 Total Protein 6.1 Albumin 3.5 POC Troponin I 0.00 L Discharge Plan Discharge Disposition: Home, Self-Care Date of Admission: 03/21/23 20:45 Attending Provider on Discharge: Ev Arana Primary Care Provider: Kassandra Marshall Condition: Stable Anticipated Discharge Date/Time: 03/22/23 15:50 Discharge Medications: Continued valacyclovir 1 gram tablet 1,000 mg PO .PRN Patient Comments: TAKE TWO TABLETS BY MOUTH TWICE DAILY (DME) blood-glucose meter [Accu-Chek Guide Glucose Meter] Misc See Rx Instructions .ROUTE .MEDSUPPLY Qty: 1 Patient Comments: USE TO CHECK GLUCOSE ONCE DAILY Rx Instructions: As directed cholecalciferol (vitamin D3) 125 mcg (5,000 unit) tablet 5,000 unit PO DAILY aspirin [Adult Low Dose Aspirin] 81 mg tablet,delayed release (DR/EC) 81 mg PO QDAY triamcinolone acetonide 0.5 % cream 1 applic topical BID clindamycin phosphate 1 % solution 1 applic topical QDAY Qty: 60 1RF pregabalin 25 mg capsule 50 mg PO TID Patient Comments: Week 1: TAKE 1 capsule BY MOUTH 3 TIMES DAILY. Week 2: 1 capsule in MORNING & IN EVENING & 2 capsules at bedtime. Week 3: 1 capsule in am, propranolol 60 mg tablet 60 mg PO .po pantoprazole 40 mg tablet,delayed release (DR/EC) 40 mg PO QDAY Qty: 90 3RF Patient Comments: TAKE 1 TABLET BY MOUTH DAILY Rx Instructions: for acid reflux sucralfate [Carafate] 1 gram tablet 1 g PO Q4H Qty: 90 0RF Rx Instructions: Take 1 tablet every 4 hours up to 4 times per day for acid reflux (DME) Accu-Chek Guide test strips Strip See Rx Instructions .ROUTE .COMPLEX Qty: 100 3RF Dose Instruction: TEST ONCE DAILY Rx Instructions: TEST ONCE DAILY (DME) lancets [Accu-Chek Softclix Lancets] Misc See Rx Instructions .ROUTE .MEDSUPPLY Qty: 100 3RF Rx Instructions: Once daily and as needed for hypoglycemia events fluticasone propionate 50 mcg/actuation spray,suspension 1 spray intranasal BID Qty: 16 0RF ezetimibe 10 mg tablet 10 mg PO QDAY Qty: 90 3RF Rx Instructions: once daily for cholesterol metformin 500 mg tablet extended release 24 hr 1,000 mg PO QDAY Qty: 180 3RF fluoxetine 20 mg capsule 20 - 40 mg PO QDAY Qty: 90 2RF Patient Comments: take 1-2 capsules by mouth daily Rx Instructions: 1-2 capsules daily for mood rosuvastatin 40 mg tablet 40 mg PO QDAY Qty: 90 2RF Rx Instructions: once daily for cholesterol meloxicam 7.5 mg tablet 7.5 mg PO BID Qty: 60 0RF Rx Instructions: 1 tablet twice daily for pain with food Discharge Orders: Discharge Order (Routine); Ordered 03/22/23 Ordered By: Ev Arana Patient Education: Migraine Headache (ED) Additional Instructions: Start using BiPAP again. Follow up with your neurologist, Dr. Covington at [facility], to discuss treatment of daily headaches and probable migraine headaches. Avoid alcohol. Avoid taking daily NSAIDs (other than baby aspirin) or daily acetaminophen. Activity Level: No Restrictions Discharge Diet: Diabetic and Low Fat/Low Cholesterol Follow Up Appointments: Kassandra Marshall PA-C [Primary Care Provider] - (as needed) Forms: [employer] Info Instructions
== END 2023-03-22 16:25 | disposition home or self-care (01) ==
LOC: ED 19:55 → MEDSURG 20:45
PROVIDERS: Admitting Provider Family Medicine; Emergency Provider Family Medicine; PCP Physician Assistant Medical; Visit Provider Family Medicine
DX: R51.9 Headache, unspecified (principal); G47.33 Obstructive sleep apnea (adult) (pediatric); G89.29 Other chronic pain; E11.9 Type 2 diabetes mellitus without complications; Z79.82 Long term (current) use of aspirin; R53.83 Other fatigue; K21.9 Gastro-esophageal reflux disease without esophagitis; Z79.84 Long term (current) use of oral hypoglycemic drugs; R53.1 Weakness; G43.909 Migraine, unspecified, not intractable, without status migrainosus; Z79.899 Other long term (current) drug therapy; E78.5 Hyperlipidemia, unspecified; I45.10 Unspecified right bundle-branch block; R29.818 Other symptoms and signs involving the nervous system; R20.0 Anesthesia of skin; R25.1 Tremor, unspecified; R20.2 Paresthesia of skin; Z90.49 Acquired absence of other specified parts of digestive tract; Z87.891 Personal history of nicotine dependence; F10.11 Alcohol abuse, in remission; Z86.79 Personal history of other diseases of the circulatory system; R26.81 Unsteadiness on feet; I69.998 Other sequelae following unspecified cerebrovascular disease; Z86.16 Personal history of COVID-19; Z90.81 Acquired absence of spleen; M79.662 Pain in left lower leg
CPT/HCPCS: 36415; 70450; 70496; 70498; 70551; 80053; 83880; 84484; 85025; 85610; 85730; 86140; 87635; 93005; 99285; G0378; A9270; Q9967

== ENCOUNTER 2023-04-01 09:00 | Outpatient (RCR) | payer MEDICARE, OTHER, SELFPAY | END 2023-07-12 10:22 | disposition home or self-care (01) | PROVIDERS: PCP Physician Assistant Medical; Visit Provider Psychiatry & Neurology Neurology | DX: M54.16 Radiculopathy, lumbar region (principal); R25.1 Tremor, unspecified; I63.50 Cerebral infarction due to unspecified occlusion or stenosis of unspecified cerebral artery; R51.9 Headache, unspecified; I69.998 Other sequelae following unspecified cerebrovascular disease; G81.94 Hemiplegia, unspecified affecting left nondominant side; M54.2 Cervicalgia; M54.50 Low back pain, unspecified; R26.89 Other abnormalities of gait and mobility; M25.562 Pain in left knee; M25.561 Pain in right knee; M79.672 Pain in left foot; M79.671 Pain in right foot; Z51.89 Encounter for other specified aftercare | CPT/HCPCS: 80053; 82607; 84550; 86140; 97110; 97112; 97116; 97140; 97162; 97164 ==

== ENCOUNTER 2023-04-12 13:38 | Outpatient (CLI) | payer MEDICARE, OTHER, SELFPAY ==
--- OUTSIDE RECORDS SUMMARY | 2023-04-12 13:43 | XMS_ITS | Continuity of Care Document ---
Author Name Unknown Organization [facility] [place] Address [address] [place] [address] Phone Care Team Providers Care Farmworker Cranberry Name Role Phone Vitaly Bah MD Unavailable [...] BILATERAL OFFICE/OUTPATIENT VISIT, EST Disabilty Reports Forms [facility] OFFICE/OUTPATIENT VISIT, EST Nerve Block Other Peripheral LEFT Ultrasound Guidance Inbox Tax [facility] OFFICE/OUTPATIENT VISIT, EST [facility] OFFICE CONSULTATION Advance Directives Directive Yes / No Effective Date File Name No Information Encounters Encounter Description Practice Location Reason(s) For Visit Diagnoses Date Provider Providers Copied on Encounter [facility], [address] [place] [address], [id number] , [place] tel:[phone] [facility] Occipital neuralgia 3 Niurka Haider. [address] [facility], [address], [place], [place], [id number], [place]. tel:[phone] Referring Provider: Vitaly Cruz, [address] [place] [address], [id number]. tel:[phone] OFFICE/OUTPAT IENT VISIT, EST [facility], [address] [place] [address], [id number] , [place] tel:[phone] [facility] Widespread pain (chief complaint) Chronic pain syndromeOccip ital neuralgiaPain in left footPain in right footCervicalg iaOther spondylosis with radiculopathy , lumbar region [address]. [address] [place] [address] [address], [place], [place], [id number], [place]. tel:[phone] Software Development Project Manager: Tonya Stern, [facility] [address], [place], [address]. tel:[phone] Workers Compensation .Referring Provider: Vitaly Cruz, [address] [place] [address], [id number]. tel:[phone] [facility], [address] [place] [address], [id number] , [place] tel:[phone] [facility] No Information 8 Pepe Mcmillan. [address] [place] [address], [id number], [place]. tel:[phone] Referring Provider: Vitaly Cruz, [address] [place] [address], [id number]. tel:[phone] OFFICE/OUTPAT IENT VISIT, [facility], [address] [place] [address], [id number] , [place] [phone] [facility] Leg Pain (chief complaint) Pain in left kneeOther chronic postprocedura l painPain in left leg March- 3201 8 Pepe Mcmillan. [address] [place] [address], [id number], [place]. tel:[phone] Software Development Project Manager: Tonya Stern, [facility] [address], [place], [address]. tel:[phone] Workers Compensation .Referring Provider: Vitaly Cruz, [address] [place] [address], [id number]. tel:[phone] [facility], [address] [place] [address], [id number] , [place] [phone] [facility] Pain in left leg March- 0-201 8 Kate Suresh. [address] [place] [address], [id number], [place]. tel:[phone] OFFICE/OUTPAT IENT VISIT, [facility], [address] [place] [address], [id number] , [place] [phone] [facility] Leg Pain (chief complaint) Other chronic postprocedura l painPain in left kneePain in left leg Apr- 1-201 8 Pepe Mcmillan. [address] [place] [address], [id number], [place]. tel:[phone] Software Development Project Manager: Tonya Stern, [facility] [address], [place], [address]. tel:[phone] Workers Compensation . OFFICE CONSULTATION [facility], [address] [place] [address], [id number] , [place] tel:[phone] [facility] [place] Leg Pain (chief complaint) Pain in left legPain in left kneeOther chronic postprocedura l pain 8 Pepe Mcmillan. [address] [place], [place], [id number], [place]. tel:[phone] Software Development Project Manager: Tonya Stern, [facility] [address], [place], [address]. tel:[phone] Workers Compensation . [facility], [address] [place], [place], [id number] , [place] tel:[phone] [facility] [place] No Information 8 Kulwinder Haider. [address], [place], [id number], [place]. tel:[phone] Family History Family Member Type Diagnosis Age At Onset No Information Payers Payer name Insurance type Covered libertarian ID Authoriza tion(s) Medicare [id number] [facility] [id number] Social History Type Description Quantity Date Captured [...] patient was previously seen in clinic by [facility], but not since March 2018. Pain is [...] that he recently completed lumbar imaging at [facility], available for review.Currently attends PT at [facility], and is managed on Lyrica 25mg TID and Alpha 5-325mg.Shashank is interested in pain management through [facility]. Inquires about being prescribed a muscle relaxant. [...] L calf. PT was previously completed at [facility] in February; on hold [...] Met with an Dr Flor (ortho) in [place] for an evaluation and surgery was not recommended for him; per [facility], pt's quadriceps is not firing so physical therapy, perineal nerve block, and medication management was recommended to return to regular gait. Went to physical therapy ([facility]) yesterday and received massage, which initially was painful but provided some relief. Voltaren gel provided pain relief and requested a refill. Denies trying muscle relaxants. On Alpha for unrelated issue, and does not find [...] tibia/fibula. Was sent to Dr. Morales [facility] for a tib/fib fusion, completed 09/2016. 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
--- OUTSIDE RECORDS SUMMARY | 2023-04-12 13:43 | XMS_ITS | Continuity of Care Document ---
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 Wallboard And Plasterboard Name Role Phone [facility] Unavailable Unava ilable Procedures Procedure Date N BLOCK, OTHER PERIPHERAL N BLOCK, OTHER PERIPHERAL Pt doc no events on discharg Pt w/o preop order iv ab pro Advance Directives Directive Yes / No Effective Date File Name No Information Encounters Encounter Description Practice Location Reason(s) For Visit Diagnoses Date Provider Providers Copied on Encounter [facility], [address] [place] [address], [id number], tel:[phone] [facility] No Information 3 [facility]. [address] [place] [address], [id number], . tel:[phone] Referring Provider: Vitaly Bah, [address] [facility] [address], [place], [address]. tel:[phone] Family History Family Member Type Diagnosis Age At Onset No Information Payers Payer name Insurance type Covered green party ID Authorjacintoa tianshul(s) Medicare MB [id number] [facility] [id number] Social History Type Description Quantity Date Captured [...]
== END 2023-04-12 13:39 | disposition home or self-care (01) ==
LOC: LKVREF 13:41
PROVIDERS: PCP Physician Assistant Medical; Visit Provider Family Medicine
DX: Z11.9 Encounter for screening for infectious and parasitic diseases, unspecified (principal); S30.860A Insect bite (nonvenomous) of lower back and pelvis, initial encounter
CPT/HCPCS: 86618

== ENCOUNTER 2023-06-07 08:48 | Outpatient (RCR) | payer MEDICARE, OTHER, SELFPAY | END 2023-12-04 23:59 | disposition home or self-care (01) | LOC: CCIC 08:48 | PROVIDERS: PCP Physician Assistant Medical; Visit Provider Internal Medicine Hematology & Oncology | DX: R78.89 Finding of other specified substances, not normally found in blood (principal); R53.83 Other fatigue; Z86.73 Personal history of transient ischemic attack (TIA), and cerebral infarction without residual deficits | CPT/HCPCS: 99202; 99204; 99212; 99214 ==

== ENCOUNTER 2023-06-13 08:11 | Outpatient (CLI) | payer MEDICARE, OTHER, SELFPAY ==
--- OUTSIDE RECORDS SUMMARY | 2023-06-13 16:14 | XMS_ITS | Continuity of Care Document ---
Author Name Unknown Organization [facility] Address [address] [address] [place] [address] Phone Care Team Providers Care Paratransit Driver Name Role Phone Unavailable Unavailable Unavailable Allergies, [...] Diagnoses Date Provider Providers Copied on Encounter [facility], [address] [address], [place], [place], [id number], tel:[phone] [facility] No Information 7 No Information Offic Cons New/estab Mod-hi 60 [facility], [address] [address], [place], [place], [id number], tel:[phone] [facility] Pain[facility] Pain 0200 7 No [...] party ID Authoriza tion(s) [employer] [facility] [id number] Social History Type Description Quantity Date Captured Comments Sex Male Smoking Status No Information Chief Complaint And Reason For Visit No Information Reason For Referral Reason For Referral No Information History Of Present Illness Encounter Date Complaint History Of Prese nt Illness No Information Functional Status Date Functional Assessmen t No Information Instructions Date Instruction Additional Infor mation No Information Assessments Type Assessment Date No Information Patient Care Teams Name Effective Dates (start - stop) Status Members No Information
--- OUTSIDE RECORDS SUMMARY | 2023-06-13 16:14 | XMS_ITS | Continuity of Care Document ---
Author Name Unknown Organization [facility] Address [address] [place] [address] Phone Care Team Providers Care Electrical Estimator Name Role Phone [facility] Unavailable Unava ilable Procedures Procedure Date N BLOCK, OTHER PERIPHERAL N BLOCK, OTHER PERIPHERAL Pt doc no events on discharg Pt w/o preop order iv ab pro Advance Directives Directive Yes / No Effective Date File Name No Information Encounters Encounter Description Practice Location Reason(s) For Visit Diagnoses Date Provider Providers Copied on Encounter [facility], [address] [place] [address], [id number], tel:[phone] [facility] No Information 3 [facility]. [address] [place] [address], [id number], . tel:[phone] Referring Provider: Vitaly Bah, [address] [place], [address] . tel:[phone] Family History Family Member Type Diagnosis Age At Onset No Information Payers Payer name Insurance type Covered constitution party ID Authoriza tianshul(s) Medicare MB [id number] [facility] [id number] Social History Type Description Quantity Date Captured [...]
--- OUTSIDE RECORDS SUMMARY | 2023-06-13 16:14 | XMS_ITS | Continuity of Care Document ---
Author Name Unknown Organization [facility] Address [address] [place] [address] Phone Care Team Providers Care Business Services Tech Name Role Phone Laure BARBOSA Sherice Unavailable Unavailable Allergies, Adverse Reactions, Alerts Substance Reaction Status Criticality No Known Allergies Active No Inform ation Medications Medication Instructions Dosage Effective Dates (start - stop) Status Comments Methocarbamol Oral Tablet 750 MG TAKE ONE TABLET BY MOUTH THREE TIMES DAILY - Active pregabalin 25 mg capsule take [...] day prn pain 1 tablet - Active methocarbamol 750 mg tablet take 1 tablet by oral route 3 times every day 750 MG - No Longer Active Procedures Procedure Date N BLOCK, OTHER PERIPHERAL BILATERAL OFFICE/OUTPATIENT VISIT, EST Disabilty Reports Forms [facility] OFFICE/OUTPATIENT VISIT, EST Nerve Block Other Peripheral LEFT Ultrasound Guidance [facility] [employer] [facility] OFFICE/OUTPATIENT VISIT, EST [facility] OFFICE CONSULTATION Advance Directives Directive Yes / No Effective Date File Name No Information Encounters Encounter Description Practice Location Reason(s) For Visit Diagnoses Date Provider Providers Copied on Encounter [facility], [address] [place] [address], [id number] , [place] tel:[phone] [facility] [place] No Information 3 Laure Sherice. [address] [facility] [address], [place], [id number] , [place]. tel:[phone] [facility], [address] [place] [address], [id number] , [place] tel:[phone] [facility] Occipital neuralgia 3 Niurka Haider. [address] [place] [address], [id number] , [place]. tel:[phone] Referring Provider: Vitaly Cruz, [address] [place] [address], [id number]. tel:[phone] OFFICE/OUTPAT IENT VISIT, EST [facility], [address] [place], [place], [id number] , [place] tel:[phone] [facility] Widespread pain (chief complaint) Chronic pain syndromeOccipi tre neuralgiaPain in left footPain in right footCervicalgi aOther spondylosis with radiculopathy, lumbar region 3 Laure Sherice. [address], [place], [id number] , [place]. tel:[phone] Overcoil Stepper: Tonya Stern, [facility] [address], [place], [address]. tel:[phone] Workers Compensation. Referring Provider: Vitaly Cruz, [address] [place] [address], [id number]. tel:[phone] [facility], [address] [place] [address], [id number] , [place] tel:[phone] [facility] No Information Apr- 8 8 Pepe Deyanira . [address] [place] [address], [id number] , [place]. tel:[phone] Referring Provider: Vitaly Cruz, [address] [place] [address], [address]. tel:[phone] OFFICE/OUTPAT IENT VISIT, [facility], [address] [place] [address], [id number] , [place] tel:[phone] [facility] [place] Leg Pain (chief complaint) Pain in left kneeOther chronic postprocedural painPain in left leg 3 8 Pepe Mcmillan . [address] [place] [address], [id number] , [place]. tel:[phone] Overcoil Stepper: Tonya Stern, [facility] [address], [place], [address]. tel:[phone] Workers Compensation. Referring Provider: Vitaly Cruz, [address] [place] [address], [id number]. tel:[phone] [facility], [address] [place] [address], [id number] , [place] tel:[phone] [facility] Pain in left leg March- 0-201 8 Kate Suresh. [address] [place] [address], [id number] , [place]. tel:[phone] OFFICE/OUTPAT IENT VISIT, [facility], [address] [place] [address], [id number] , [place] tel:[phone] [facility] Leg Pain (chief complaint) Other chronic postprocedural painPain in left kneePain in left leg 8 Pepe Costellohanie . [address] [facility] [place], [id number] , [place]. [phone] Overcoil Stepper: Tonya Stern, [facility] [address], [place], [address]. tel:[phone] Workers Compensation. OFFICE CONSULTATION [facility], [address] [facility] [address] [place], [place], [id number] , [place] tel:[phone] [facility] [place] Leg Pain (chief complaint) Pain in left legPain in left kneeOther chronic postprocedural pain 8 Pepe Deyanira . [address] [facility] [place], [id number] , [place]. [phone] Overcoil Stepper: Tonya Stern, [facility] [address], [place], [address]. tel:[phone] Workers Compensation. [facility], [address] [facility] [address] [place], [place], [id number] , [place] tel:[phone] [facility] [place] No Information 8 Kulwinder Haider. [address] [facility] [place], [id number] , [place]. [phone] Family History Family Member Type Diagnosis Age At Onset No Information Payers Payer name Insurance type Covered libertarian ID Authoriza tianshul(s) Medicare [id number] [facility] [id number] Social History Type Description Quantity Date Captured [...] was previously seen in clinic by [facility], but not since March 2018. Pain is [...] that he recently completed lumbar imaging at [facility], available for review.Currently attends PT at [facility], and is managed on Lyrica 25mg TID and Buchanan 5-325mg.Shashank is interested in pain management through [facility]. Inquires about being prescribed a muscle relaxant. [...] previously. He is accompanied by his . [facility] is also present during today's OV. Leg Pain (comments) Shashank is he re for follow up. He c/o sleepiness with the gabapentin 1200mg/day but is trying to work through it. Met with an Dr Flor (ortho) in [place] for an evaluation and surgery was not recommended for him; per [facility], pt's quadriceps is not firing so physical therapy, perineal nerve block, and medication management was recommended to return to regular gait. Went to physical therapy ([facility]) yesterday and received massage, which initially was painful but provided some relief. Voltaren gel provided pain relief and requested a refill. Denies trying muscle relaxants. On Buchanan for unrelated issue, and does not find [...] tibia/fibula. Was sent to Dr. Morales by [facility] for a tib/fib fusion, completed 09/2016. 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
--- OUTSIDE RECORDS SUMMARY | 2023-06-13 16:14 | XMS_ITS | Continuity of Care Document ---
Author Name Unknown Organization [facility] Address [address] [place] [address] Phone Care Team Providers Care Water Leak Repairer Name Role Phone Unavailable Unavailable Unavailable Allergies, Adverse Reactions, Alerts Substance Reaction Status Criticality No Known Allergies Active No Inform ation Medications Medication Instructions Dosage Effective Dates (start - stop) Status Comments Vicodin (unknown strength) Not Available - Active ASPIRIN (unknown strength) Not Available - Active PANTOPRAZOLE SODIUM (unknown strength) Not Available - Active AZATHIOPRINE (unknown strength) Not Available - Active GABAPENTIN (unknown strength) Not Available - Active ROSUVASTATIN CALCIUM (unknown strength) Not Available - Active VITAMIN D3 (unknown strength) Not Available - Active FLUOXETINE HCL (unknown strength) Not Available - Active Procedures Procedure Date Office/Outpatient Visit,[place], [place] 2020 Results Test Name Date and Time Measure Units Reference Range Abnormal Flag Status Comments Panel Description: Transfora judd Tlqxsfn-Xcwroe-Ljxfugibnbygvk (TRANSLUMNONPART) Unknown TRANSLUMNONPART 17:15:59 (See Attached Document) Unknown (See Attached Document) Panel Description: Transfora judd Hingycc-Tjodrx-Mcalaxbbhucyrb (TRANSLUMNONPART) Unknown Image Transforaminal Xodzzck-Mbfxrl-F onparti Advance Directives Directive Yes / No Effective Date File Name No Information Encounters Encounter Description Practice Location Reason(s) For Visit Diagnoses Date Provider Providers Copied on Encounter [facility], [address], [place], [place], [id number], [place] tel:[phone] [facility] No Information No Information Office/Outpat ient Visit,[place], [place] [facility], [address], [place], [id number], [place] tel:[phone] [facility] [place] [facility], lumbar region No Information Family History Family Member Type Diagnosis Age At Onset No Information Payers Payer name Insurance type Covered alliance party ID Authoriza tion(s) Medicare [id number] For Life/Retired Bunny [id number] Social History Type Description Quantity Date Captured [...]
== END 2023-06-13 08:12 | disposition home or self-care (01) ==
LOC: NFLDREF 16:11
PROVIDERS: PCP Physician Assistant Medical; Referring Provider Physician Assistant Medical; Visit Provider Physician Assistant Medical
DX: Z00.00 Encounter for general adult medical examination without abnormal findings (principal); E11.9 Type 2 diabetes mellitus without complications; R53.83 Other fatigue; Z12.5 Encounter for screening for malignant neoplasm of prostate
CPT/HCPCS: 80061; 84153; 84270; 84402; 84403

== ENCOUNTER 2023-09-08 09:51 | Outpatient (CLI) | payer MEDICARE, OTHER, SELFPAY ==
--- NOTE | 2023-11-07 10:46 | ONC.NURNOTE ---
Traffic Analysis Technician called to schedule 6 month follow up with Shashank Cain stated that he will be seeing his PCP in November 2023.
== END 2023-09-08 09:52 | disposition home or self-care (01) ==
LOC: LKVREF 09:51
PROVIDERS: PCP Physician Assistant Medical; Visit Provider Physician Assistant Medical
DX: E11.9 Type 2 diabetes mellitus without complications (principal)
CPT/HCPCS: 82043; 82570

== ENCOUNTER 2023-11-30 10:37 | Outpatient (CLI) | payer MEDICARE, OTHER, SELFPAY ==
--- OUTSIDE RECORDS SUMMARY | 2023-11-30 10:51 | XMS_ITS ---
Author Name Unknown Organization [facility] Address [address] [place] [address] Care Team Providers Care Parimutuel Ticket Cashier Name Role Phone Unavailable Unavailable Unavailable Surgery Details Not on file Complications Check Surgery Details section. Procedure Estimated Blood Loss Check Surgery Details section. Procedure Findings Check Surgery Details section. Procedure Specimens Taken Check Surgery Details section.
--- OUTSIDE RECORDS SUMMARY | 2023-11-30 10:51 | XMS_ITS | Referral Summary ---
Author Name Unknown Organization [facility] Address [address] [place] [address] Care Team Providers Care Periodicals Library Assistant Name Role Phone None Reported, Pcp Primary Care Provider Unavail able Source Comments Patient records contain information from all sites at [facility]. For routine questions regarding patient records, call [phone] during business hours, M-F 8:00 AM - 5:00 PM Central Time. Record requests for emergency care only can be directed to [phone] at any time.[facility] Encounters Date Type Department Care Team Description 11/01/2023 7:30 AM PARK INTERPRETER - 11/04/2023 11:59 PM PARK INTERPRETER Hospital [facility]counter [facility] [place], [place] [address] [place] [phone] Cody Gutiérrez M.D. Discharge Disposition: Home or Self Care 10/31/2023 3:50 PM PARK INTERPRETER - 11/03/2023 11:59 PM PARK INTERPRETER Hospital Encounter [facility] [place], [place] [address] [place] [phone] Cody Gutiérrez M.D. Apnea Sleep Obstructive Discharge Disposition: Home or Self Care 11/02/2023 1:00 PM PARK INTERPRETER Office Visit [facility] [place], [place] [address] [place] [phone] Cody Gutiérrez M.D. Apnea Sleep Obstructive (Primary Dx) 10/31/2023 3:30 PM PARK INTERPRETER Office Visit [facility] [place], [place] [address] [place] [phone] Cody Gutiérrez M.D. Apnea Sleep Obstructive (Primary Dx) 10/27/2023 10:00 AM PARK INTERPRETER Clinical Communication Virtual [facility] in [place], [place] [address] [place] [address] from Last 3 Months Allergies No known active allergies Medications Medication Sig Dispensed Refills Start Date End Date Status metFORMIN (GLUCOPHAGE) 500 mg tablet Take 500 mg by mouth every 4 (four) hours. 0 Active pregabalin (LYRICA) 100 mg capsule Take 25 mg by mouth 2 (two) times a day. 25mg 3 in the am and 3 in the pm 0 Active FLUoxetine (PROzac) 20 mg capsule Take 20 mg by mouth daily. 0 Active ezetimibe-atorvast atin 10-10 mg tablet Take by mouth daily. 0 Acti ve pantoprazole (PROTONIX) 40 mg EC tablet Take 40 mg by mouth daily. 0 Active fluticasone propionate (FLONASE) 50 mcg/actuation nasal spray Administer 2 sprays into each nostril daily. 0 Active meloxicam (MOBIC) 15 mg tablet Take 1 tablet by mouth daily. 7.5mg 0 10/11/[address] Active [address] tablet Take by mouth daily. 0 10/11/2008 Acti ve rosuvastatin 40 mg capsule, sprinkle Take by mouth. 0 Act elijah propranoloL (INDERAL LA) 60 mg 24 hr capsule Take 60 mg by mouth daily. 0 Active Trulicity 1.5 mg/0.5 mL pen injector injection Inject 0.5 mL (1.5 mg) subcutaneously every week; new dosing once weekly* 0 10/05/2023 Active Accu-Chek Guide test strips USE TO TEST DAILY* 0 08/26/2023 Activ e valACYclovir (VALTREX) 1000 mg tablet take 1 tablet by mouth once daily for 5 days as needed for cold sores* 0 10/19/2023 Active Active Problems Problem Noted Date Diagnosed Date Diabetes Mellitus Type 2 Without Complication Stroke/Transient Ischemic Attack NOS 06/20/2023 Apnea Sleep Obstructive 06/08/2023 Social History Tobacco Use Types Packs/Day Years Used Date Smoking Tobacco: Former Cigarettes Q uit: 12/23/2004 Smokeless Tobacco: Never Tobacco Cessation:Counseling Given: Not Answered Humiliation, Afraid, Rape, and Kick questionnair e Answer Date Recorded Within the last year, have y ou been afraid of your partner or ex-partner? No 04/04/2023 Within the last year, have y ou been humiliated or emotionally abused in other ways by your partner or ex-partner? No Within the last year, have y ou been kicked, hit, slapped, or otherwise physically hurt by your partner or ex-partner? No 04/04/2023 Within the last year, have y ou been raped or forced to have any kind of sexual activity by your partner or ex-partner? No 04/04/2023 Social Connection and Isolat ion Panel [NHANES] Answer Date Recorded In a typical week, how many times do you talk on the phone with family, friends, or neighbors? More than three times a week 04/04/2023 How often do you get togethe r with friends or relatives? Once a week 04/04/2023 How often do you attend chur or buddhist services? 1 to 4 times per year 04/04/2023 Do you belong to any clubs o r organizations such as quaker groups, unions, fraternal or athletic groups, or school groups? No 04/04/2023 How often do you attend meet ings of the clubs or organizations you belong to? Never 04/04/2023 Are you , , di vorced, , never , or living with a partner? 04/04/2023 AUDIT-C Answer Date Recorded Q1: How often do you have a drink containing alc ohol? Never 04/04/2023 Average Number of Drinks Not on file 023 Frequency of Binge Drinking Not on file 03/21 Overall Financial Resource Strain (CARDIA) Answe r Date Recorded How hard is it for you to pa y for the very basics like food, housing, medical care, and heating? Not hard at all 04/04/2023 [facility] Occup[facility] ional [facility] - Occupational Stress Questionnaire Answer Date Recorded Do you feel stress - tense, restless, nervous, or anxious, or unable to sleep at night because your mind is troubled all the time - these days? To some extent 04/04/2023 Exercise Vital Sign Answer Date Recorde d On average, how many days pe r week do you engage in moderate to strenuous exercise (like a brisk walk)? 0 days Minutes of Exercise per Session Not on file 04/04/2023 Hunger Vital Sign Answer Date Recorded Within the past 12 months, y ou worried that your food would run out before you got the money to buy more. Never true 04/04/20 Within the past 12 months, t he food you bought just didn't last and you didn't have money to get more. Never true 04/04/2023 PRAPARE - Transportation Answer Date Re corded In the past 12 months, has l ack of transportation kept you from medical appointments or from getting medications? No 03/21 In the past 12 months, has l ack of transportation kept you from meetings, work, or from getting things needed for daily living? No 04/04/2023 Housing Stability Vital Sign Answer Jose e Recorded In the last 12 months, was t here a time when you were not able to pay the mortgage or rent on time? No 04/04/2023 In the last 12 months, how many places have you lived? 1 04/04/2023 In the last 12 months, was t here a time when you did not have a steady place to sleep or slept in a mcc (including now)? No 04/04/2023 Nutrition Answer Date Recorded Nutrition: EVOO Fat Source No 04/04 On average, how many serving s of fruits and vegetables do you eat per day (serving size is equal to 1 cup or approximately the size of a tennis ball)? 0-1 04/04/2023 Dental Answer Date Recorded Dental: Regular Dentist Yes 04/04/20 Employment Answer Date Recorded Employment status Retired 04/04/2023 Education Answer Date Recorded What is the highest level of school you have completed or the highest degree you have received? GED or equivalent Sex and Gender Information Value Date Recorded Sex Assigned at Male 04/04/2023 10:07 AM CDT Gender Identity Male 04/04/2023 10:07 AM CDT Sexual Orientation Straight 04/04/2023 10 :07 AM CDT Last Filed Vital Signs Vital Sign Reading Time Taken Comments Blood Pressure 105/68 10/31/2023 3:18 PM PARK INTERPRETER Pulse 75 10/31/2023 3:18 PM PARK INTERPRETER Temperature 36.6 ??C (97.9 ??F) 06/20/2023 12:50 PM C DT Respiratory Rate 16 06/20/2023 1:15 PM CDT Oxygen Saturation 93% 06/20/2023 1:15 PM CDT Inhaled Oxygen Concentration - - Weight 102 kg (225 lb 12 oz) 10/31/2023 3:18 PM PARK INTERPRETER Height 174.8 cm (5' 8.82) 10/31/2023 3:18 PM CS T Body Mass Index 33.51 10/31/2023 3:18 PM PARK INTERPRETER Plan of Treatment Upcoming Encounters Date Type Department Care Team (Late st Contact Info) Description 01/10/2024 4:00 PM PARK INTERPRETER Office [facility] [place], [place] [address] [place] [address] Cody Gutiérrez M.D. [address] [place] [phone] 01/10/2024 7:00 PM PARK INTERPRETER Appointment [facility] [place], [place] [address] [place] [phone] Cody Gutiérrez M.D. [address] [place] [phone] Discharge Disposition: Home or Self Care 01/11/2024 9:30 AM PARK INTERPRETER Office Visit [facility] [place], [place] [address] [place] [phone] Cody Gutiérrez M.D. [address] [place] [phone] Medical Devices Implanted Type Area Pourer Buggy Ladle Device Identifier Shelf Expiration Date Model / Serial / Lot Lead Wafer Abrading Machine Tender Ap [facility] - [id number] - [id number] Implanted:Qt y: 1 on 06/20/2023 by Nitin Gutiérrez M.D., M.S. at [facility] Responsive Neurostimulator Sys Right: Chest [employer] 04/11/2026 [id number] / [id number] / Gen Nrstm Sleep Apnea Wasta - [id number] - [id number] Implanted:Qt y: 1 on 06/20/2023 by Nitin Gutiérrez M.D., M.S. at [facility] Spinal Cord Stimulator Right: Chest [employer] 04/12/2026 [id number] / [id number] / Procedures Procedure Name Priority Date/Time Associated Diagnosis Comments [place] HOME SLEEP TEST TYPE GERALDINE 4 Routine 11/01/2023 8:03 AM PARK INTERPRETER Apnea Sleep Obstructive from Last 3 Months Results * Home sleep apnea test (HSAT) (11/01/2023 8:03 AM PARK INTERPRETER) Narrative ONBASE - 11/02/2023 3:46 PM PARK INTERPRETER SUMMARY: WatchPAT testing was performed on hypoglossal nerve stimulator (Inspire) therapy at a stimulation amplitude of 1.5 volts. ??Review of the Inspire usage bowen confirms Inspire use during nearly all of the recording. ??The total recording time was 481 minutes with an estimated total sleep time of 448 minutes, nearly all occurring in the supine position. ??Signal integrity was generally satisfactory throughout the study. ??The pAHI was 29 events per hour. ??There were minimal sleep disordered breathing events from approximately 2:00 a.m. to 5:00 a.m. without an accompanying sleep position change, although the patient thinks that he may have been positioned on his sides as that his his preferred position. ??Disordered breathing events resulted in a mandi saturation of 81%; the mean saturation was 88%. ??Sound interpreted as snoring of at least 40 decibel intensity was present during 28% of estimated sleep time. CLINICAL INTERPRETATION: Moderately severe residual obstructive sleep apnea on Inspire at a stimulation amplitude of 1.5 volts. Cody Gutiérrez M.D. SLEEP CENTER ORDERAB LES ONBASE NA from Last 3 Months Advance Directives For more information, please contact: [phone] Latest Code Status on File Code Status Date Activated Date Inactivated Comments Full Code 06/20/2023 1:42 PM 06/22/2023 2:04 AM Question Answer Comments Full Code: Discussed Care Teams Periodicals Library Assistant Relationship Specialty Start Date End Date None Reported, Pcp PCP - General Family Medicine 05/16/23
--- OUTSIDE RECORDS SUMMARY | 2023-11-30 10:51 | XMS_ITS | Encounter Summary ---
Author Name Unknown Organization [facility] Address [address] [place] [address] Care Team Providers Care Records Specialist Name Role Phone None Reported, Pcp Primary Care Provider Unavail able Encounter Details Date Type Department Care Team (Latest Contact Info) Description 10/27/2023 10:00 AM IRON MINER Clinical Communication Virtual Review in [place], [place] 200 [place], [place] [phone] Social History Tobacco Use Types Packs/Day Years Used Date Smoking Tobacco: Former Cigarettes Q uit: 12/23/2004 Smokeless Tobacco: Never Humiliation, Afraid, Rape, and Kick questionnair e [...] 04/04/2023 How often do you attend chur ch or anabaptist services? 1 to 4 times per year 04/04/2023 Do you belong to any clubs o r organizations such as tenriism groups, unions, fraternal or athletic groups, or [...] and heating? Not hard at all 04/04/2023 [facility] of Occupat ional [facility] - Occupational Stress Questionnaire Answer Date Recorded [...] money to buy more. Never true 04/04/20 23 Within the past 12 months, t he [...] place to sleep or slept in a prison (including now)? No 04/04/2023 Nutrition Answer Date [...] Orientation Straight 04/04/2023 10 :07 AM CDT documented as of this encounter Plan of Treatment Upcoming Encounters Date Type Department Care Team (Late st Contact Info) Description 01/10/2024 4:00 PM IRON MINER Office [facility] [place], [place] [address] [place] [address] Cody Gutiérrez M.D. [address] [place] [address] 01/10/2024 7:00 PM IRON MINER Appointment [facility] in [place], [place] [address] [place] [address] Cody Gutiérrez M.D. [address] [place] [phone] Discharge Disposition: Home or Self Care 01/11/2024 9:30 AM IRON MINER Office Visit [facility] in [place], [place] [address] [place] [address] Cody Gutiérrez M.D. 200 [place] [address] documented as of this encounter Visit Diagnoses Not on filedocumented in this encounter Care Teams Records Specialist Relationship Specialty Start Date End Date None Reported, Pcp PCP - General Family Medicine 05/16/23 documented as of this encounter
--- OUTSIDE RECORDS SUMMARY | 2023-11-30 10:51 | XMS_ITS | Clinical Summary ---
Author Name Unknown Organization [facility] Address [address] [place] [address] Care Team Providers Care Staff Combat Information Center Officer Name Role Phone None Reported, Pcp Primary Care Provider Unavail able Source Comments Patient records contain information from all sites at [facility]. For routine questions regarding patient records, call [phone] during business hours, M-F 8:00 AM - 5:00 PM Central Time. Record requests for emergency care only can be directed to [phone] at any time.[facility] Allergies No known active allergies Medications Medication [...] Attack NOS 06/20/2023 Apnea Sleep Obstructive 06/08/2023 Encounters Date Type Department Care Team Description 11/02/2023 1:00 PM MEDIA RELATIONS SPECIALIST Office Visit [facility] in [address] [phone] Cody Gutiérrez M.D. Apnea Sleep Obstructive (Primary Dx) 11/01/2023 7:30 AM MEDIA RELATIONS SPECIALIST - 11/04/2023 11:59 PM MEDIA RELATIONS SPECIALIST Hospital Encounter [facility] in [address] [phone] Cody Gutiérrez M.D. Discharge Disposition: Home or Self Care 10/31/2023 3:50 PM MEDIA RELATIONS SPECIALIST - 11/03/2023 11:59 PM [facility] Hospital Encounter [facility] in [address] [phone] Cody Gutiérrez M.D. Apnea Sleep Obstructive Discharge Disposition: Home or Self Care 10/31/2023 3:30 PM MEDIA RELATIONS SPECIALIST Office Visit [facility] in [place], [place] [address] [place] [phone] Cody Gutiérrez M.D. Apnea Sleep Obstructive (Primary Dx) 10/27/2023 10:00 AM MEDIA RELATIONS SPECIALIST Clinical Communication Virtual Review in [place], [place] 200 [place] [address] from Last 3 Months Social History Tobacco Use Types Packs/Day Years [...] How often do you attend chur or moravian services? 1 to 4 times per year 04/04/2023 Do you belong to any clubs o r organizations such as catholic groups, unions, fraternal or athletic groups, or [...] and heating? Not hard at all 04/04/2023 [facility] of Occupat ional Health - Occupational Stress [...] place to sleep or slept in a penitentiary (including now)? No 04/04/2023 Nutrition Answer Date [...] Comments Blood Pressure 105/68 10/31/2023 3:18 PM MEDIA RELATIONS SPECIALIST Pulse 75 10/31/2023 3:18 PM MEDIA RELATIONS SPECIALIST Temperature 36.6 ??C (97.9 ??F) 06/20/2023 12:50 PM C DT Respiratory Rate 16 06/20/2023 1:15 PM CDT Oxygen Saturation 93% 06/20/2023 1:15 PM CDT Inhaled Oxygen Concentration - - Weight 102 kg (225 lb 12 oz) 10/31/2023 3:18 PM MEDIA RELATIONS SPECIALIST Height 174.8 cm (5' 8.82) 10/31/2023 3:18 PM CS T Body Mass Index 33.51 10/31/2023 3:18 PM MEDIA RELATIONS SPECIALIST Plan of Treatment Upcoming Encounters Date Type Department Care Team (Late st Contact Info) Description 01/10/2024 4:00 PM MEDIA RELATIONS SPECIALIST Office Visit [facility] in [place], [place] [address] [place] [phone] Cody Gutiérrez M.D. [address] [place] [phone] 01/10/2024 7:00 PM MEDIA RELATIONS SPECIALIST Appointment [facility] in [place], [place] [address] [place] [phone] Cody Gutiérrez M.D. [address] [place] [phone] Discharge Disposition: Home or Self Care 01/11/2024 9:30 AM MEDIA RELATIONS SPECIALIST Office Visit [facility] in [place], [place] [address] [place] [phone] Cody Gutiérrez M.D. [address] [place] [phone] Health Maintenance Due Date Last Done Comments CT Colonography 1958 Cologuard 1958 Colonoscopy 1958 Colorectal Cancer Screening 1958 Diabetic Office Visit with F oot Exam 1958 Dilated Eye Exam 1958 FIT 1958 HIV Screening 1958 Hemoglobin A1C 1958 Hepatitis C Screening 1958 Lipid (Cholesterol) Screening 1958 Urine Albumin 1958 Visit: Chronic Disease, age 18+ 1958 Visit: Medicare Annual Wellness 1958 Hepatitis B Vaccines (1 of 3 - Risk 3-dose series) 2018 Zoster Vaccines (2 of 2) 09/14/2019 07/20/2019 Creatinine Level (Kidney Fun ction Test) 08/01/2021 08/01/2020, 01/18/2020 COVID-19 Vaccine (2 - 2022-2 4 season) 2023 02/13/2021 Pneumococcal vaccine (65+ ye ars) (3 of 3 - PPSV23 or PCV20) 2023 04/13/2019, 02/16/1994 Depression Screening (Annual PHQ-2) 11/21/2023 Fall Risk Screen (Annual) 11/21/2023 Office Visit for Blood Press ure Check / Re-check 10/31/2024 10/31/2023 DTaP,Tdap,and Td Vaccines (4 - Td or Tdap) 04/02/2032 04/02/2022, 10/08/2014, 08/24/2012 Abdominal Aortic Aneurysm (A AA) Screen Completed 01/18/2020 Influenza Vaccine Completed 09/27/2023, , 07/25/2021, Additional history exists Medical Devices Implanted Type Area Chief Executive Device Identifier Shelf Expiration Date Model / Serial / Lot Lead [employer] Founder Ap Thor Rsp Sns - [id number] - [id number] Implanted:Qt y: 1 on 06/20/2023 by Nitin Gutiérrez M.D., M.S. at [facility] Responsive Neurostimulator Sys Right: Chest [employer] 04/11/2026 [id number] / [id number] / Gen Nrstm Sleep Apnea Thor - [id number] - [id number] Implanted:Qt y: 1 on 06/20/2023 by Nitin Gutiérrez M.D., M.S. at [facility] Spinal Cord Stimulator Right: Chest [employer] 04/12/2026 [id number] / [id number] / Procedures Procedure Name Priority Date/Time Associated Diagnosis Comments DE HOME SLEEP TEST TYPE GERALDINE 4 Routine 11/01/2023 8:03 AM MEDIA RELATIONS SPECIALIST Apnea Sleep Obstructive from Last 3 Months Results * Home sleep apnea test (HSAT) (11/01/2023 8:03 AM MEDIA RELATIONS SPECIALIST) Narrative ONBASE - 11/02/2023 3:46 PM MEDIA RELATIONS SPECIALIST SUMMARY: WatchPAT testing was performed on hypoglossal [...] Advance Directives For more information, please contact: [phone] Latest Code Status on File Code Status Date Activated Date Inactivated Comments Full Code 06/20/2023 1:42 PM 06/22/2023 2:04 AM Question Answer Comments Full Code: Discussed Care Teams Staff Combat Information Center Officer Relationship Specialty Start Date End Date None Reported, Pcp PCP - General Family Medicine 05/16/23
--- OUTSIDE RECORDS SUMMARY | 2023-11-30 10:51 | XMS_ITS | Encounter Summary ---
Author Name Unknown Organization [facility] Address [address] [place] [place] [address] Care Team Providers Care Cap Inspector Name Role Phone None Reported, Pcp Primary Care Provider Unavail able Reason for Visit * Outpatient (Routine) - Closed Specialty Diagnoses / Procedures Referred By Demetrice steen Referred To Contact Sleep Medicine Cody Gutiérrez M.D. [address] [place] [phone] [facility] Referral ID Status Reason Start Date Expiration Date Visits Re quested Visits Authorized [id number] Closed 08/01/2023 07/31/2026 1 1 Encounter Details Date Type Department Care Team ([facility] st Contact Info) Description 10/31/2023 3:30 PM PUBLIC RELATIONS SENIOR ASSOCIATE Office Visit [facility] in [place], [place] [address] [place] [phone] Cody Gutiérrez M.D. [address] [place] [phone] Apnea Sleep Obstructive (Primary Dx) Social History Tobacco Use Types Packs/Day Years [...] How often do you attend chur or jehovah's witness services? 1 to 4 times per year 04/04/2023 Do you belong to any clubs o r organizations such as episcopal groups, unions, fraternal or athletic groups, or [...] and heating? Not hard at all 04/04/2023 [facility] of Occupat ional Health - Occupational Stress [...] place to sleep or slept in a long-term (including now)? No 04/04/2023 Nutrition Answer Date [...] AM CDT documented as of this encounter Last Filed Vital Signs Vital Sign Reading Time Taken Comments Blood Pressure 105/68 10/31/2023 3:18 PM PUBLIC RELATIONS SENIOR ASSOCIATE Pulse 75 10/31/2023 3:18 PM PUBLIC RELATIONS SENIOR ASSOCIATE Temperature - - Respiratory Rate - - Oxygen Saturation - - Inhaled Oxygen Concentration - - Weight 102 kg (225 lb 12 oz) 10/31/2023 3:18 PM PUBLIC RELATIONS SENIOR ASSOCIATE Height 174.8 cm (5' 8.82) 10/31/2023 3:18 PM CS T Body Mass Index 33.51 10/31/2023 3:18 PM PUBLIC RELATIONS SENIOR ASSOCIATE documented in this encounter Progress Notes * Cody Gutiérrez M.D. - 10/31/2023 3:30 PM CST SUBJECTIVE CHIEF COMPLAINT / REASON FOR VISIT Three-month recheck of hypoglossal nerve stimulator (Inspire) therapy HISTORY OF PRESENT ILLNESS Mr. [place] is a 63 y.o. male with obstructive sleep apnea, PAP intolerance, diabetes mellitus type 2, hyperlipidemia, stroke, GERD, rheumatoid arthritis, major depression, obesity, and migraineswho presents for a three-month recheck of Inspire therapy that was implanted on June 20, 2023 and activated on August 01, 2023. Verbal histories were obtained today from the patient and his . Mr. [place] has up titrated from a stimulation amplitude of 1.1 volts to 1.5 volts since the activation visit. He struggled to tolerate higher stimulation amplitudes due to discomfort. He has developed some difficulties falling asleep because he is now anticipating the start of the stimulation at the end of the 30 minute start delay. Therefore, on some nights, he has double started the system to obtain up to 60 minutes time to fall asleep. The downloaded adherence report indicates that over the period of October 01, 2023 to October the device was used 29 of 30 nights for an average of 4 hours and 29 minutes per night. On 57%of those nights he used the device for at least 4 hours. He averaged 1.3 therapy pauses per night. At the stimulation amplitude of 1.5 volts, Mrs. [place] is noticing significantly less snoring.The patient is feeling more rested during the day. OBJECTIVE VITAL SIGNS Blood Pressure: 105/68 (10/31/2023 3:18 PM) Pulse Rate: 75 (10/31/2023 3:18 PM) BMI (Calculated): 33.5 kg/m?? (10/31/2023 3:18 PM) Height: 174.8 cm (10/31/2023 3:18 PM) Weight: 102 kg (10/31/2023 3:18 PM) PHYSICAL EXAMINATION General: Alert. No immediate distress. ENT: Speech clear. Handling oral secretions well. Lungs: Unlabored respirations at rest. Gait: Intact ASSESSMENT / PLAN #1 Obstructive sleep apnea with PAP intolerance-status post hypoglossal nerve stimulator (Inspire) implantation on June 20, 2023 and activation on August 01, 2023 We debated whether to do a fine tune polysomnogram now or a home sleep apnea test to get a better sense of the patient's current response to Inspire. I am concerned that if we go to a fine tune PSG now, we may not have a lot of room for titration given that the patient has struggled to tolerate stimulation amplitudes more than 1.5 volts. Plan Home sleep apnea test tonight on Inspire at a stimulation amplitude of 1.5 volts. I will meet with Mr. [place] on Tuesday to review the results. Total time 40 minutes includes ikan-lz-ehxa and awa-pmjv-pr-face pre- and post- visit tasks performed on the day of the patient encounter. IC RELATIONS SENIOR ASSOCIATE documented in this encounter Plan of Treatment Upcoming Encounters Date Type Department Care Team (Late st Contact Info) Description 01/10/2024 4:00 PM PUBLIC RELATIONS SENIOR ASSOCIATE Office Visit [facility] in [place], [place] [address] [place] [phone] Cody Gutiérrez M.D. [address] [place] [phone] 01/10/2024 7:00 PM PUBLIC RELATIONS SENIOR ASSOCIATE Appointment [facility] in [place], [place] [address] [place] [phone] Cody Gutiérrez M.D. [address] [place] [phone] Discharge Disposition: Home or Self Care 01/11/2024 9:30 AM PUBLIC RELATIONS SENIOR ASSOCIATE Office Visit [facility] in [place], [place] [address] [place] [phone] Cody Gutiérrez M.D. [address] [place] [address] [place] [phone] documented as of this encounter Visit Diagnoses Diagnosis Apnea Sleep Obstructive- Primary documented in this encounter Care Teams Cap Inspector Relationship Specialty Start Date End Date None Reported, Pcp PCP - General Family Medicine 05/16/23 documented as of this encounter
--- OUTSIDE RECORDS SUMMARY | 2023-11-30 10:51 | XMS_ITS | Encounter Summary ---
Author Name Unknown Organization [facility] Address [address] [place] [address] Care Team Providers Care Voice Writing Reporter Name Role Phone None Reported, Pcp Primary Care Provider Unavail able Reason for Referral * Outpatient (Routine) - Closed Specialty Diagnoses / Procedures Referred By Demetrice t Referred To Contact Diagnoses Apnea Sleep Obstructive Procedures Home sleep apnea test (HSAT) Thad Gutiérrez M.D. 200 [place] [address] [facility] Referral ID Status Reason Start Date Expiration Date Visits Re quested Visits Authorized [id number] Closed 10/31/2023 10/30/2024 1 1 DING SERVICES ENGINEER * Outpatient (Routine) - Closed Specialty Diagnoses / Procedures Referred By Demetrice t Referred To Contact Sleep Medicine Thad Gutiérrez M.D. 200 [place] [phone] [facility] Referral ID Status Reason Start Date Expiration Date Visits Re quested Visits Authorized [id number] Closed 08/01/2023 07/31/2026 1 1 * Outpatient (Routine) - Closed Specialty Diagnoses / Procedures Referred By Contac t Referred To Contact Sleep Medicine Thad Gutiérrez M.D. [address] [place] [phone] [facility] Referral ID Status Reason Start Date Expiration Date Visits Re quested Visits Authorized [id number] Closed 08/01/2023 07/31/2026 1 1 Reason for Visit * Outpatient (Routine) - Closed Specialty Diagnoses / Procedures Referred By Demetrice steen Referred To Contact Sleep Medicine Thad Gutiérrez M.D. [address] [place] [address] [facility] Referral ID Status Reason Start Date Expiration Date Visits Re quested Visits Authorized [id number] Closed 06/20/2023 06/19/2026 1 1 Encounter Details Date Type Department Care Team (Late st Contact Info) Description 08/01/2023 11:00 AM CDT Office Visit [facility] in [place], [place] [address] [place] [address] Thad Gutiérrez M.D. [address] [place] [address] Apnea Sleep Obstructive (Primary Dx) Social History [...] often do you attend chur ch or islam services? 1 to 4 times per year 04/04/2023 Do you belong to any clubs o r organizations such as denominational groups, unions, fraternal or athletic groups, or [...] and heating? Not hard at all 04/04/2023 [facility] of Occupat ional Health - Occupational Stress [...] place to sleep or slept in a nursing home (including now)? No 04/04/2023 Nutrition Answer Date [...] AM CDT documented as of this encounter Progress Notes * Thad Gutiérrez M.D. - 08/01/2023 11:00 AM CDT SUBJECTIVE CHIEF COMPLAINT / REASON FOR VISIT Activation of hypoglossal nerve stimulator (Inspire) therapy HISTORY OF PRESENT ILLNESS Mr. [place] is a 62 y.o. male with obstructive sleep apnea, PAP intolerance, diabetes mellitus type 2, hyperlipidemia, stroke 2007 with residual left hemiparesis, GERD, rheumatoid arthritis, major depression, obesity, and migraines who presents for activation of hypoglossal nerve stimulator (Inspire) therapy that was implanted by Dr. Nitin Gutiérrez on June 20, 2023. Verbal histories were obtained today from the patient and his . Mr. [place] has enjoyed an uneventful postoperative course. He had a slightly prolonged sore throat but otherwise denies significant pain, dysarthria, dysphagia, tongue weakness, or difficulties with the Inspire incision sites. OBJECTIVE PHYSICAL EXAMINATION General: Alert. No immediate distress. Arrived to and left the examination room in a wheelchair, although he was able to get on and off the exam room couch and exam table at a normal pace and withoutassistance. ENT: Speech clear. Handling oral secretions well. Tongue protrudes midline to command. Full tongue ibaj-py-olnk range of motion demonstrated. No intraoral lesions identified. Skin: Clean, dry, intact, non erythematous, and nonfluctuant right submandibular and right subclavicular Inspire incision sites. Lungs: Easy respirations at rest. ASSESSMENT / PLAN #1 Obstructive sleep apnea with PAP intolerance-status post hypoglossal nerve stimulator (Inspire) implantation on June 20, 2023 and activation on August 01, 2023 Using the Inspire rpg programmer analyst, the following parameters were determined today: Sensory threshold: 1.0 volts Functional threshold: 1.1 volts Sensing mechanism: Intact Using the Inspire rpg programmer analyst, the following parameters were set today: Stimulation range: 1.0-2.0 volts Initial stimulation amplitude: 1.1 volts (Inspire remote level 2) Start delay: 30 minutes Pause time: 15 minutes Maximum therapy duration: 8 hours The next steps in the Inspire journey were discussed with the patient, including the stimulation titration schedule and returned in 3 months for a check-in and fine tune polysomnogram. Plan 1. Mr. [place] and his will meet with a fish technologist shortly for an educational session on using the Inspire remote and connecting with the Inspire [place]. 2. Starting tonight, Mr. Cardoza should aim for all night, every night Inspire usage. 3. Every 7-10 days, Mr. [place] should increase the stimulation amplitude by 0.1 volts until side effects develop that prevent consistent and comfortable all night Inspire usage or the upper allowable stimulation amplitude of 2.0 volts is reached, whichever comes first. 4. A fish technologist will check in with the patient in 1 month for an Inspire update. I encouraged the patient to reach out at any point if problems or questions with therapy arise. 5. Recheck visit in 3 months with prescheduled fine tune polysomnogram. Total time 40 minutes includes zdjb-ni-bfzy and nxn-tqok-lo-face pre- and post- visit tasks performed on the day of the patient encounter. DING SERVICES ENGINEER documented in this encounter Miscellaneous Notes * Addendum Note - Thad Gutiérrez M.D. - 08/01/2023 11:00 AM CDTAddended by: THAD GUTIÉRREZ on: 10/31/2023 03:45 PM Modules accepted: Orders DING SERVICES ENGINEER documented in this encounter Plan of Treatment Upcoming Encounters Date Type Department Care Team (Late st Contact Info) Description 01/10/2024 4:00 PM BUILDING SERVICES ENGINEER Office Visit [facility] in [place], [place] [address] [place] [phone] Thad Gutiérrez M.D. [address] [place] [phone] 01/10/2024 7:00 PM BUILDING SERVICES ENGINEER Appointment [facility] in [address] [phone] Thad Gutiérrez M.D. [address] [place] [phone] Discharge Disposition: Home or Self Care 01/11/2024 9:30 AM BUILDING SERVICES ENGINEER Office Visit [facility] in [place], [place] [address] [place] [phone] Tahd Gutiérrez M.D. [address] [place] [phone] Scheduled Referrals Name Type Priority Associated Diagnoses Orde r Schedule Sleep Medicine office visit (clinic) Outpatient Referral Routine Expected: 10/31/2023 (Approximate), Expires: 10/31/2024 Sleep Medicine office visit (clinic) Outpatient Referral Routine Expected: 10/31/2023 (Approximate), Expires: 10/31/2024 documented as of this encounter Results * Home sleep apnea test (HSAT) (11/01/2023 8:03 AM BUILDING SERVICES ENGINEER) Narrative ONBASE - 11/02/2023 3:46 PM BUILDING SERVICES ENGINEER SUMMARY: WatchPAT testing was performed on hypoglossal [...] at a stimulation amplitude of 1.5 volts. Thad Gutiérrez M.D. SLEEP CENTER ORDERAB LES ONBASE NA documented in this encounter Visit Diagnoses Diagnosis Apnea Sleep Obstructive- Primary Apnea Sleep Obstructive documented in this encounter Care Teams Voice Writing Reporter Relationship Specialty Start Date End Date None Reported, Pcp PCP - General Family Medicine 05/16/23 documented as of this encounter
--- OUTSIDE RECORDS SUMMARY | 2023-11-30 10:51 | XMS_ITS | Encounter Summary ---
Author Name Unknown Organization [facility] Address [address] [place] [address] Care Team Providers Care Employment Supervisor Name Role Phone None Reported, Pcp Primary Care Provider Unavail able Reason for Visit * Outpatient (Routine) - Closed Specialty Diagnoses / Procedures Referred By Contac t Referred To Contact Diagnoses Apnea Sleep Obstructive Procedures Home sleep apnea test (HSAT) Cody Gutiérrez M.D. [address] [place] [phone] [facility] Referral ID Status Reason Start Date Expiration Date Visits Re quested Visits Authorized [id number] Closed 10/31/2023 10/30/2024 1 1 Encounter Details Date Type Department Care Team (Latest Contact Info) Description 11/01/2023 7:30 AM CLAIM INSPECTOR - 11/04/2023 11:59 PM [facility] Hospital Encounter [facility] [place], [place] [address] [place] [phone] Cody Gutiérrez M.D. [address] [place] [phone] Discharge Disposition: Home or Self Care Social History Tobacco Use Types Packs/Day Years [...] How often do you attend chur or amish services? 1 to 4 times per year 04/04/2023 Do you belong to any clubs o r organizations such as yazidi groups, unions, fraternal or athletic groups, or [...] and heating? Not hard at all 04/04/2023 [facility] [place] of Occupat ional Health - Occupational Stress [...] place to sleep or slept in a skilled nursing (including now)? No 04/04/2023 Nutrition Answer Date [...] AM CDT documented as of this encounter Medications at Time of Discharge Medication Sig Dispensed Refills Start Date End Date Accu-Chek Guide test strips USE TO TEST DAILY* 0 08/26/[address] tablet Take by mouth daily. 0 10/11/2008 ezetimibe-atorvastatin 10-10 mg tablet Take by mouth daily. 0 FLUoxetine (PROzac) 20 mg capsule Take 20 mg by mouth daily. 0 fluticasone propionate (FLONASE) 50 mcg/actuation nasal spray Administer 2 sprays into each nostril daily. 0 meloxicam (MOBIC) 15 mg tablet Take 1 tablet by mouth daily. 7.5mg 0 10/11/2016 metFORMIN (GLUCOPHAGE) 500 mg tablet Take 500 mg by mouth every 4 (four) hours. 0 pantoprazole (PROTONIX) 40 mg EC tablet Take 40 mg by mouth daily. 0 pregabalin (LYRICA) 100 mg capsule Take 25 mg by mouth 2 (two) times a day. 25mg 3 in the am and 3 in the pm 0 propranoloL (INDERAL LA) 60 mg 24 hr capsule Take 60 mg by mouth daily. 0 rosuvastatin 40 mg capsule, sprinkle Take by mouth. 0 Trulicity 1.5 mg/0.5 mL pen injector injection Inject 0.5 mL (1.5 mg) subcutaneously every week; new dosing once weekly* 0 10/05/2023 valACYclovir (VALTREX) 1000 mg tablet take 1 tablet by mouth once daily for 5 days as needed for cold sores* 0 10/19/2023 documented as of this encounter Plan of Treatment Upcoming Encounters Date Type Department Care Team (Late st Contact Info) Description 01/10/2024 4:00 PM CLAIM INSPECTOR Office [facility] [place], [place] [address] [place] [address] Cody Gutiérrez M.D. [address] [place] [phone] 01/10/2024 7:00 PM CLAIM INSPECTOR Appointment [facility] [place], [place] [address] [place] [phone] Cody Gutiérrez M.D. [address] [place] [phone] Discharge Disposition: Home or Self Care 01/11/2024 9:30 AM CLAIM INSPECTOR Office Visit [facility] [place], [place] [address] [place] [address] Cody Gutiérrez M.D. [address] [place] [address] documented as of this encounter Procedures Procedure Name Priority Date/Time Associated Diagnosis Comments MD HOME SLEEP TEST TYPE GERALDINE 4 Routine 11/01/2023 8:03 AM CLAIM INSPECTOR Apnea Sleep Obstructive documented in this encounter Results * Home sleep apnea test (HSAT) (11/01/2023 8:03 AM CLAIM INSPECTOR) Narrative ONBASE - 11/02/2023 3:46 PM CLAIM INSPECTOR SUMMARY: WatchPAT testing was performed on hypoglossal [...] NA documented in this encounter Visit Diagnoses Not on filedocumented in this encounter Care Teams Employment Supervisor Relationship Specialty Start Date End Date None Reported, Pcp PCP - General Family Medicine 05/16/23 documented as of this encounter
--- OUTSIDE RECORDS SUMMARY | 2023-11-30 10:51 | XMS_ITS | Encounter Summary ---
Author Name Unknown Organization [facility] Address [address] [place] [address] Care Team Providers Care Irrigation Supervisor Name Role Phone None Reported, Pcp Primary Care Provider Unavail able Reason for Referral * Specialty Diagnoses / Procedures Referred By Demetrice t Referred To Contact Cody Gutiérrez M.D. [address] [place] [phone] [facility] Referral ID Status Reason Start Date Expiration Date Visits Re quested Visits Authorized Encounter Details Date Type Department Care Team (Latest Contact Info) Description 08/01/2023 11:30 AM CDT - 08/04/2023 11:59 PM CDT Hospital Encounter [facility] [place], [place] [address] [place] [phone] Cody Gutiérrez M.D. [address] [place] [phone] Apnea Sleep Obstructive Discharge Disposition: Home or Self Care Social [...] How often do you attend chur or roman catholic services? 1 to 4 times per year 04/04/2023 Do you belong to any clubs o r organizations such as evangelical groups, unions, fraternal or athletic groups, or [...] and heating? Not hard at all 04/04/2023 [facility] [place] of Occupat ional Health - Occupational Stress [...] place to sleep or slept in a snf (including now)? No 04/04/2023 Nutrition Answer Date [...] Refills Start Date End Date aspirin [address] tablet Take by [...] am and 3 in the pm 0 rosuvastatin 40 mg capsule, sprinkle Take by mouth. 0 oxyCODONE (ROXICODONE) 5 mg immediate release tabletIndications:Acut e Pain Take 1 tablet (5 mg total) by mouth every 4 (four) hours as needed for pain for up to 5 doses Indication: Acute Pain. 5 tablet 0 06/20/2023 10/27/2023 documented as of this encounter Plan of Treatment Upcoming Encounters Date Type Department Care Team (Late st Contact Info) Description 01/10/2024 4:00 PM CYLINDER GRINDER Office Visit [facility] [place], [place] [address] [place] [phone] Cody Gutiérrez M.D. [address] [place] [phone] 01/10/2024 7:00 PM CYLINDER GRINDER Appointment [facility] [place], [place] [address] [place] [phone] Cody Gutiérrez M.D. [address] [place] [phone] Discharge Disposition: Home or Self Care 01/11/2024 9:30 AM CYLINDER GRINDER Office Visit [facility] [place], [place] [address] [place] [phone] Cody Gutiérrez M.D. [address] [place] [phone] Scheduled Referrals Name Type Priority Associated Diagnoses Order Schedule Sleep Medicine - Technologist education visit (clinic) Outpatient Referral Routine Apnea Sleep Obstructive Once for 1 Occurrences starting 08/01/2023 until 08/01/2023 documented as of this encounter Visit Diagnoses Diagnosis Apnea Sleep Obstructive documented in this encounter Care Teams Irrigation Supervisor Relationship Specialty Start Date End Date None Reported, Pcp PCP - General Family Medicine 05/16/23 documented as of this encounter
--- OUTSIDE RECORDS SUMMARY | 2023-11-30 10:51 | XMS_ITS | Encounter Summary ---
Author Name Unknown Organization [facility] Address [address] [place] [address] Care Team Providers Care International Marketing Specialist Name Role Phone None Reported, Pcp Primary Care Provider Unavail able Reason for Referral * Outpatient (Routine) - Closed Specialty Diagnoses / Procedures Referred By Demetrice steen Referred To Contact Diagnoses Apnea Sleep Obstructive Procedures Home sleep apnea test (HSAT) Cody Gutiérrez M.D. 200 [place] [phone] [facility] Referral ID Status Reason Start Date Expiration Date Visits Re quested Visits Authorized [id number] Closed 10/31/2023 10/30/2024 1 1 LEAD BURNER Reason for Visit * Outpatient (Routine) - Closed Specialty Diagnoses / Procedures Referred By Contambreen steen Referred To Contact Diagnoses Apnea Sleep Obstructive Procedures Home sleep apnea test (HSAT) Cody Gutiérrez M.D. [address] [place] [phone] [facility] Referral ID Status Reason Start Date Expiration Date Visits Re quested Visits Authorized [id number] Closed 10/31/2023 10/30/2024 1 1 Encounter Details Date Type Department Care Team (Latest Contact Info) Description 10/31/2023 3:50 PM RED LEAD BURNER - 11/03/2023 11:59 PM RED LEAD BURNER Hospital Encounter [facility] [place], [place] [address] [place] [address] Cody Gutiérrez M.D. [address] [place] [address] Apnea Sleep Obstructive Discharge Disposition: Home or [...] How often do you attend chur or protestant services? 1 to 4 times per year 04/04/2023 Do you belong to any clubs o r organizations such as restorationist groups, unions, fraternal or athletic groups, or [...] and heating? Not hard at all 04/04/2023 [facility] [place] of Occupat ional Health - Occupational Stress [...] place to sleep or slept in a senior living (including now)? No 04/04/2023 Nutrition Answer Date [...] st Contact Info) Description 01/10/2024 4:00 PM RED LEAD BURNER Office Visit [facility] [place], [place] [address] [place] [phone] Cody Gutiérrez M.D. [address] [place] [phone] 01/10/2024 7:00 PM RED LEAD BURNER Appointment [facility] [place], [place] [address] [place] [phone] Cody Gutiérrez M.D. [address] [place] [phone] Discharge Disposition: Home or Self Care 01/11/2024 9:30 AM RED LEAD BURNER Office Visit [facility] [place], [place] [address] [place] [phone] Cody Gutiérrez M.D. [address] [place] [phone] documented as of this encounter Procedures Procedure Name Priority Date/Time Associated Diagnosis Comments CT HOME SLEEP TEST TYPE GERALDINE 4 Routine 11/01/2023 8:03 AM RED LEAD BURNER Apnea Sleep Obstructive documented in this encounter Results * Home sleep apnea test (HSAT) (11/01/2023 8:03 AM RED LEAD BURNER) Narrative ONBASE - 11/02/2023 3:46 PM RED LEAD BURNER SUMMARY: WatchPAT testing was performed on hypoglossal [...] Obstructive documented in this encounter Care Teams International Marketing Specialist Relationship Specialty Start Date End Date None Reported, Pcp PCP - General Family Medicine 05/16/23 documented as of this encounter
--- OUTSIDE RECORDS SUMMARY | 2023-11-30 10:51 | XMS_ITS | Encounter Summary ---
Author Name Unknown Organization [facility] Address [address] [place] [address] Care Team Providers Care Talent Development Coordinator Name Role Phone None Reported, Pcp Primary Care Provider Unavail able Reason for Referral * Outpatient (Routine) - Authorized Specialty Diagnoses / Procedures Referred By Demetrice t Referred To Contact Sleep Cody Lucas M.D. [address] [place] [phone] [facility] Referral ID Status Reason Start Date Expiration Date V isits Requested Visits Authorized [id number] Authorized 11/02/2023 11/01/2026 1 1 ING MANAGER * Outpatient (Routine) - Authorized Specialty Diagnoses / Procedures Referred By Contambreen t Referred To Contact Diagnoses Apnea Sleep Obstructive Procedures Polysomnography (PSG): HNS Titration Cody Gutiérrez M.D. [address] [place] [phone] [facility] Referral ID Status Reason Start Date Expiration Date V isits Requested Visits Authorized [id number] Authorized 11/02/2023 11/01/2024 1 1 ING MANAGER * Outpatient (Routine) - Authorized Specialty Diagnoses / Procedures Referred By Contambreen t Referred To Contact Sleep Cody Lucas M.D. [address] [place] [phone] [facility] Referral ID Status Reason Start Date Expiration Date V isits Requested Visits Authorized [id number] Authorized 11/02/2023 11/01/2026 1 1 ING MANAGER Reason for Visit * Outpatient (Routine) - Closed Specialty Diagnoses / Procedures Referred By Demetrice steen Referred To Contact Sleep Medicine Cody Gutiérrez M.D. [address] [place] [phone] [facility] Referral ID Status Reason Start Date Expiration Date Visits Re quested Visits Authorized [id number] Closed 08/01/2023 07/31/2026 1 1 Encounter Details Date Type Department Care Team (Late st Contact Info) Description 11/02/2023 1:00 PM TESTING MANAGER Office Visit [facility] [place], [place] [address] [place] [address] Cody Gutiérrez M.D. [address] [place] [address] Apnea Sleep Obstructive (Primary Dx) Social History [...] often do you attend chur ch or latter-day services? 1 to 4 times per year 04/04/2023 Do you belong to any clubs o r organizations such as baptist groups, unions, fraternal or athletic groups, or [...] and heating? Not hard at all 04/04/2023 [facility] of Occupat ional Health - Occupational Stress [...] as of this encounter Progress Notes * Cody Gutiérrez M.D. - 11/02/2023 1:00 PM CST SUBJECTIVE CHIEF COMPLAINT / REASON FOR VISIT Post testing report visit. HISTORY OF PRESENT ILLNESS I met with Mr. Hastings and his to review test results. ASSESSMENT / PLAN #1 Obstructive sleep apnea with PAP intolerance-status post hypoglossal nerve stimulator (Inspire) implantation on June 20, 2023 and activation on August 01, 2023 The WatchPAT study reveals persistence of moderately severe obstructive sleep apnea at the current stimulation amplitude of 1.5 volts. The pAHI was 29 events per hour. Disordered breathing events were deemed to be non positionally dependent by the WatchPAT device, but there was a distinct period ofminimal disordered breathing events and oxyhemoglobin saturation stability during the midportion the study that may have been due to a position change not appreciated by the recording unit. The mean oxyhemoglobin saturation was borderline at 88% and sound interpreted as snoring was present during 28% of estimated sleep time. Please see the formal report for more details. I suspect that the current stimulation amplitude of 1.5 volts is adequate during lateral decubitus position sleep (although this is not definitively supported by the latest WatchPAT results) and inadequate during supine position sleep. Therefore, I provided the patient with 2 options before advancing to a titration polysomnogram. One option would be to combined the current stimulation amplitude of 1.5 volts with sleep position restriction maneuvers, such as using the ???T-shirt with tennis balls concept. Another option would be to retry higher stimulation amplitudes which hopefully be easier now that the patient understands that further uptitration is necessary. Plan At the end of our discussion, Mr. Hastings was still weighing his options. Given that he is now having difficulties initiating sleep while awaiting initiation of stimulation, I reprogrammed his start delay to 45 minutes. He will decide whether to use the combination of Inspire at 1.5 volts plus sleep position restriction therapy or trial higher stimulation amplitudes rather than worrying aboutsleep positioning. I will see him back in 2 months to reassess matters and to determine timing of the fine tune polysomnogram. Questions were addressed during the encounter. Summary of the current Inspire settings: Stimulation range: 1.0-2.0 volts Initial stimulation amplitude: 1.5 volts Start delay: 45 minutes (new) Pause time: 15 minutes Maximum therapy duration: 8 hours Total time 30 minutes includes [id number] and riw-irrs-fd-face pre- and post- visit tasks performed on the day of the patient encounter. ING MANAGER documented in this encounter Plan of Treatment Upcoming Encounters Date Type Department Care Team (Late st Contact Info) Description 01/10/2024 4:00 PM TESTING MANAGER Office [facility] [place], [place] [address] [place] [address] Cody Gutiérrez M.D. [address] [place] [phone] 01/10/2024 7:00 PM TESTING MANAGER Appointment [facility] [place], [place] [address] [place] [address] Cody Gutiérrez M.D. [address] [place] [address] Discharge Disposition: Home or Self Care 01/11/2024 9:30 AM TESTING MANAGER Office Visit [facility] [place], [place] [address] [place] [address] Cody Gutiérrez M.D. [address] [place] [address] Scheduled Orders Name Type Priority Associated Diagnoses Orde r Schedule Polysomnography (PSG): [facility] Routine Apnea Sleep Obstructive Expected: 01/03/2024, Expires: 01/31/2025 Scheduled Referrals Name Type Priority Associated Diagnoses Orde r Schedule Sleep Medicine office visit (clinic) Outpatient Referral Routine Expected: 01/03/2024 (Approximate), Expires: 01/31/2025 Sleep Medicine office visit (clinic) Outpatient Referral Routine Expected: 01/04/2024, Expires: 01/31/2025 documented as of this encounter Visit Diagnoses Diagnosis Apnea Sleep Obstructive- Primary documented in this encounter Care Teams Talent Development Coordinator Relationship Specialty Start Date End Date None Reported, Pcp PCP - General Family Medicine 05/16/23 documented as of this encounter
--- OUTSIDE RECORDS SUMMARY | 2023-11-30 10:52 | XMS_ITS | Encounter Summary ---
Author Name Unknown Organization [facility] Address [address] [place] [address] Care Team Providers Care Information Systems Manager Name Role Phone None Reported, Pcp Primary Care Provider Unavail able Encounter Details Date Type Department Care Team ([facility] st Contact Info) Description 06/08/2023 Documentation Department of Otorhinolaryngology in [place], [place] [address] [place] [phone] Nitin Gutiérrez M.D., M.S. [address] [place] [phone] Social History Tobacco Use Types Packs/Day Years [...] often do you attend chur ch or congregation services? 1 to 4 times per year 04/04/2023 Do you belong to any clubs o r organizations such as yarsanism groups, unions, fraternal or athletic groups, or [...] and heating? Not hard at all 04/04/2023 [facility] [place] of Occupat ional Health - Occupational Stress [...] as of this encounter Progress Notes * Nitin Gutiérrez M.D., M.S. - 06/08/2023 12:53 PM CDT SUBJECTIVE CHIEF COMPLAINT / REASON FOR VISIT Results review HISTORY OF PRESENT ILLNESS Mr. Hastings was seen in the postoperative care area to discuss the results of his drug-induced sleep endoscopy which was performed on 05/16/2023. He had no difficulties with the procedure. The following portions of the patient's history were reviewed and updated as appropriate: allergies, current medications, family history, medical history, social history, surgical history, and problem list. OBJECTIVE PHYSICAL EXAM Physical Exam ASSESSMENT / PLAN #1 Severe obstructive sleep apnea, pAHI 38 events per hour from HSAT sleep testing in March 2023 #2 CPAP/BiPAP intolerance #3 Lingual tonsil hypertrophy Plan: Results of the drug-induced sleep endoscopy demonstrates grade 2 AP collapse at the palate with grade 2 oropharyngeal lateral wall collapse, tongue base collapse, with evidence of moderate to significant lingual tonsil hypertrophy. We discussed the results of this as it pertains to his diagnosis ofsevere obstructive sleep apnea. A variety of different approaches were discussed and upper airway stimulation therapy will be pursued. From a candidacy perspective, he meets all criteria as he has a favorable drug-induced sleep endoscopy, no evidence of central sleep apnea or mixed sleep apnea on his recent home sleep apnea test from March 2023, is CPAP / BiPAP intolerance, and has a current BMI of 34.9. We discussed challenges with airway stimulation including issues surrounding tolerance, the need for nightly usage, the postoperative care process, and the potential for additional surgery needed given the lingual tonsil hypertrophy noted on today's examination. We will submit for PWA review and will proceed as indicated. The patient understands the plan. All questions were answered. documented in this encounter Plan of Treatment Upcoming Encounters Date Type Department Care Team (Late st Contact Info) Description 01/10/2024 4:00 PM NATURAL SCIENCES DEPARTMENT CHAIR Office [facility] [place], [place] [address] [place] [phone] Cody Gutiérrez M.D. [address] [place] [phone] 01/10/2024 7:00 PM NATURAL SCIENCES DEPARTMENT CHAIR Appointment [facility] [place], [place] [address] [place] [phone] Cody Gutiérrez M.D. [address] [place] [phone] Discharge Disposition: Home or Self Care 01/11/2024 9:30 AM NATURAL SCIENCES DEPARTMENT CHAIR Office Visit [facility] [place], [place] [address] [place] [phone] Cody Gutiérrez M.D. [address] [place] [phone] documented as of this encounter Visit Diagnoses Not on filedocumented in this encounter Care Teams Information Systems Manager Relationship Specialty Start Date End Date None Reported, Pcp PCP - General Family Medicine 05/16/23 documented as of this encounter
--- OUTSIDE RECORDS SUMMARY | 2023-11-30 10:52 | XMS_ITS | Encounter Summary ---
Author Name Unknown Organization [facility] Address [address] [place] [address] Care Team Providers Care Wash Crew Person Name Role Phone None Reported, Pcp Primary Care Provider Unavail able Encounter Details Date Type Department Care Team ([facility] st Contact Info) Description 05/16/2023 Orders Only Department of Otorhinolaryngology in [place], [place] [address] [place] [phone] Nitin Gutiérrez M.D., M.S. [address] [place] [phone] Social History Tobacco Use Types Packs/Day Years [...] often do you attend chur ch or confucianist services? 1 to 4 times per year 04/04/2023 Do you belong to any clubs o r organizations such as orthodox groups, unions, fraternal or athletic groups, or [...] and heating? Not hard at all 04/04/2023 [facility] [place] of Occupat ional Health - Occupational Stress [...] place to sleep or slept in a chcf (including now)? No 04/04/2023 Nutrition Answer Date [...] st Contact Info) Description 01/10/2024 4:00 PM CHILD NURSE Office Visit [facility] in [place], [place] [address] [place] [address] Cody Gutiérrez M.D. [address] [place] [address] 01/10/2024 7:00 PM CHILD NURSE Appointment [facility] [place], [place] [address] [place] [address] Cody Gutiérrez M.D. [address] [place] [address] Discharge Disposition: Home or Self Care 01/11/2024 9:30 AM CHILD NURSE Office Visit [facility] [place], [place] [address] [place] [address] Cody Gutiérrez M.D. [address] [place] [address] documented as of this encounter Visit Diagnoses Not on filedocumented in this encounter Care Teams Wash Crew Person Relationship Specialty Start Date End Date None Reported, Pcp PCP - General Family Medicine 05/16/23 documented as of this encounter
--- OUTSIDE RECORDS SUMMARY | 2023-11-30 10:52 | XMS_ITS | Encounter Summary ---
Author Name Unknown Organization [facility] Address [address] [place] [address] Care Team Providers Care Data Integration Architect Name Role Phone None Reported, Pcp Primary Care Provider Unavail able Encounter Details Date Type Department Care Team (Latest Contact Info) Description 06/20/2023 7:27 AM CDT - 06/20/2023 11:59 PM CDT Hospital Encounter [facility] [address] [place] [phone] Nitin Gutiérrez M.D., M.S. [address] [place] [phone] Diabetes Mellitus Type 2 (HCC) (Primary Dx) Discharge Disposition: Home or Self Care Social [...] often do you attend chur ch or yazidi services? 1 to 4 times per year 04/04/2023 Do you belong to any clubs o r organizations such as jehovah's witness groups, unions, fraternal or athletic groups, or [...] and heating? Not hard at all 04/04/2023 [facility] - Occupational Stress [...] place to sleep or slept in a group home (including now)? No 04/04/2023 Nutrition Answer [...] Sign Reading Time Taken Comments Blood Pressure 100/80 06/20/2023 1:30 PM CDT Pulse 59 06/20/2023 1:15 PM CDT Temperature 36.6 ??C (97.9 ??F) 06/20/2023 12:50 PM C DT Respiratory Rate 16 06/20/2023 1:15 PM CDT Oxygen Saturation 93% 06/20/2023 1:15 PM CDT Inhaled Oxygen Concentration - - Weight 106 kg (233 lb 14.5 oz) 06/20/2023 7:45 A M CDT Height 172.7 cm (5' 8) 06/20/2023 7:45 AM CDT Body Mass Index 35.57 06/20/2023 7:45 AM CDT documented in this encounter Medications [...] mg capsule, sprinkle Take by mouth. 0 cephalexin (KEFLEX) 500 mg capsule Take 1 capsule (500 mg total) by mouth every 6 (six) hours for 7 days. 28 capsule 0 06/20/2023 06/27/2023 ergocalciferol (Vitamin D2) 50,000 Unit capsule Take 50,000 Units by mouth once a week. 0 08/01/2023 mometasone (NASONEX) 50 mcg/actuation nasal spray 2 sprays. 0 10/11/2008 08/01/2023 ondansetron ODT (ZOFRAN-ODT) 4 mg disintegrating tablet Dissolve 4 mg in the mouth every 8 (eight) hours as needed. 0 08/08/2017 08/01/2023 oxyCODONE (ROXICODONE) 5 mg immediate release tabletIndications:Acute Pain Take 1 tablet (5 mg total) by mouth every 4 (four) hours as needed for pain for up to 5 doses Indication: Acute Pain. 5 tablet 0 06/20/2023 10/27/2023 documented as of this encounter OR Notes * Op Jesse - Niitn Gutiérrez M.D., M.S. - 06/20/2023 10:33 AM CDT Surgeon: Nitin Gutiérrez MD Vaccine Customer Representative Surgeons: Brooke Singh MD Preoperative diagnosis: 1. Severe obstructive sleep apnea 2. Continuous positive airway pressure intolerance Postoperative diagnosis: 1. Severe obstructive sleep apnea 2. Continuous positive airway pressure intolerance Name of procedure: 1. 12th cranial nerve (hypoglossal) stimulation implant (CPT 23670) 2. Placement of right pleural respiration sensor 3. Electronic analysis of the implanted neurostimulator pulse generator system (CPT 90977) Complications: None Anesthesia Type General Procedural note: The patient was brought to the Operating Room and was anesthetized via general endotracheal anesthesia without complication. A procedural pause was undertaken, all parties agreed. A shoulder roll wasplaced and the patient was prepped and draped in usual sterile fashion with the head turned to the left. Prior to prepping and draping, electrodes were placed in the genioglossus and styloglossus muscle and connected to the NIM box for intraoperative nerve monitoring. A modified sub-mandibular incision was made in the right upper neck approximately 2 cm below the mandible in the natural skin crease. Dissection was carried down through the subcutaneous tissue and platysma. The inferior border of the submandibular gland was identified as well as the digastric tendon. The submandibular gland and the overlying fascia with the marginal mandibular nerve were retracted superiorly. The digastric was retracted inferiorly. Dissection was carried down into the digastric triangle where the hypoglossal nerve was identified in its usual fashion. The mylohyoid muscle wasretracted anteriorly, and the hypoglossal nerve was dissected up towards the floor of the mouth. The lateral branches to retrusor muscles were identified, and tested intra- operatively using the NIM stimulator. The cuff electrode for the hypoglossal nerve stimulator was placed distally to these branches on the medial nerve branch to the genioglossus muscle. Diagnostic evaluation confirmed activation of the genioglossus nerve, resulting in genioglossal activation and tongue protrusion, confirmed visually.An inferior pocket was created deep to the subcutaneous layer and superficial to the pectoralis muscle. The stimulation electrode was then secured to the digastric tendon on its lateral surface with 2, 3-0 silk sutures. A second 5 cm incision was made in the right upper chest approximately 3 cm below the clavicle. Dissection was carried down to the pectoralis muscle. Once at the pectoralis muscle blunt dissection was used to traverse through the muscle down to the chest wall. The external and internal intercostalswere visualized. Dissection was carried through the external intercostals to the internal intercostal space and a quarter-inch malleable was used to create a pocket laterally between the ribs. A 3-0 silk suture was placed on the external intercostals and the respiratory sensor was then carefully and slowly inserted between the external and internal intercostals. The pectoral muscles was closed with 3-0 Monocryl sutures. The anchoring portion of the lead was then secured to the chest wall with multiple 3-0 silk sutures. The stimulation lead was then tunneled in a subplatysmal plane and broughtout into the sub-clavicular pocket. 2 L of saline irrigation was then instilled into the submental and subclavicular pockets. The IPG was then placed into the subclavicular pocket and secured to the pectoralis fascia with two, 2-0 silk sutures. The IPG was connected to the respiratory and stimulation leads. Diagnostic evaluation was run, which confirmed a good respiration sensing signal as well as good tongue protrusion stimulation without evidence of retraction of the tongue.. The wounds were then closed in three layers with deep 3-0 and 4-0 Monocryl sutures and a 5-0 Monocryl suture in a subdermal fashion. Dermabond was then applied. The patient was handed back to anesthesia for successful emergence. They were taken the PACU in stable condition. All surgical pauses and universal protocols were followed. A assistant librarian was necessary for one or more of the following: opening, exposure and visualization during the case, maintaining hemostasis, would closure. Nitin Gutiérrez M.D., M.S. documented in this encounter Miscellaneous Notes * Pre-Procedure Note - Brooke Singh M.D. - 06/20/2023 7:13 AM CDT OTORHINOLARYNGOLOGY - BRIEFING NOTE - Dr. Brock Hastings, 62 y.o. [phone] Procedure: Insertion of Hypoglossal Nerve Stimulator Diagnosis: RENÉ, AHI 36 ANESTHESIA Anesthetic: General Anesthesia, no paralytic Airway plan: Oral endotracheal tube, taped to left Patient positioning: Patient supine, after intubation turn 180 degrees Paralysis: None (will be monitoring hypoglossal nerve) Antibiotics: Ancef, 2g Duration: 2 hours NURSING Meds: 1% lido with 1:100,000 epi Prep: Betadine - lower face, neck, below pec. [place] will air dry (no patting). Positioning: Turn 180, both arms tucked, shoulder roll Huerta: No Equipment: - EMG 2 lead - Neck marin - Microscope - Right arm sling Closure: 3-0 monocryl, 4-0 monocryl, 5-0 PDS, 3-0 silk, 2-0 silk, Dermabond POSTOP Disposition: Outpatient Followup: 1 month D/C Meds: Keflex 500mg QID x 7 days, oxycodone 5mg 10 tabs Instructions: No raising arm above horizontal Brooke Singh M.D. - PGY3 Dr. Gutiérrez's Team * Pre-Procedure Note - Brooke Singh M.D. - 06/17/2023 3:45 PM CDT OTORHINOLARYNGOLOGY - HEAD AND NECK SURGERY SURGICAL BRIEFING NOTE Procedure: Drug-Induced Sleep Endoscopy Indication: Obstructive sleep apnea ANESTHESIA - ETT (size/position/tape/tie): Mask/NC to Preoxygenate ->60-100 mg lidocaine IV -> Propofol 20mg bolus -> Propofol gtt 50mcg/kg/min, increasing by 50mcg/kg/min q2mins until snoring or obstructing noted; no narcotics or benzos. Full protocol available here. - Trach (awake, etc): no. - FiO2: per anesthesia. - Paralysis: no. - Abx: none. - Decadron: per anesthesia. - Patient position: supine. - Bed position: supine with bed straight on; one blanket under head. - Estimated Time: 30 minutes. - EBL: none. - Estimated complexity: low. NURSING - Huerta (Y/N/Temp): no. - NGT: no. - Patient postop status/disposition: outpatient. - Meds: none. - Prep: none. - Special equipment: 4.1 flexible bronchoscope, tower. - Closure: none. - Other concerns: n/a. POST-OP Medications: - N/A Resident Notes: AHI: 36 on HSAT march 2023 Brooke Singh MD Resident Physician PGY3 [facility] Department of Otolaryngology - Head & Neck Surgery Dr. Gutiérrez's Service documented in this encounter Plan of Treatment Upcoming Encounters Date Type Department Care Team (Late st Contact Info) Description 01/10/2024 4:00 PM OYSTER TONGER Office Visit [facility] [place], [place] [address] [place] [phone] Cody Gutiérrez M.D. [address] [place] [phone] 01/10/2024 7:00 PM OYSTER TONGER Appointment [facility] [place], [place] [address] [place] [phone] Cody Gutiérrez M.D. [address] [place] [phone] Discharge Disposition: Home or Self Care 01/11/2024 9:30 AM OYSTER TONGER Office Visit [facility] [place], [place] [address] [place] [phone] Cody Gutiérrez M.D. [address] [place] [phone] documented as of this encounter Procedures Procedure Name Priority Date/Time Associated Diagnosis Comments GLUCOSE POCT, B Routine 06/20/2023 1:05 PM CDT INSERTION STIMULATOR HYPOGLOSSAL NERVE 06/20/2023 9:30 AM CDT Apnea Sleep Obstructive Case Notes Hand Painter 7:32 GLUCOSE POCT, B Routine 06/20/2023 9:13 AM CDT documented in this encounter Results * (ABNORMAL) Glucose, POCT (06/20/2023 1:05 PM CDT) Glucose, POCT, B 144(H) 70 - 140 mg/dL 06/20/2023 1:07 PM CDT PCLX Site Capillary 06/20/2023 1:07 PM CDT PCLX Blood 06/20/2023 1:05 PM CDT 06/20/2023 1:07 PM CDT Unknown Provider LAB POCT ORDERABLES- MANUAL Performing Organization Address City/[facility]/ZIP Co de Phone Number POC [facility] [address] [place] [address], [facility] PCLX [facility] POC [address] [place] [address] * (ABNORMAL) Glucose, POCT (06/20/2023 9:13 AM CDT) Glucose, POCT, B 144(H) 70 - 140 mg/dL 06/20/2023 9:15 AM CDT PCLX Site Capillary 06/20/2023 9:15 AM CDT PCLX Blood 06/20/2023 9:13 AM CDT 06/20/2023 9:16 AM CDT Unknown Provider LAB POCT ORDERABLES- MANUAL Performing Organization Address City/[facility]/ZIP Co de Phone Number POC [facility] [address] [place] [address], [facility] PCLX [facility] POC [address] [place] [address] documented in this encounter Visit Diagnoses Diagnosis Apnea Sleep Obstructive- Primary Diabetes Mellitus Type 2 (HCC) Diabetes Mellitus Type 2 Without Complication (HCC) Stroke/Transient Ischemic Attack NOS documented in this encounter Admitting Diagnoses Diagnosis Apnea Sleep Obstructive documented in this encounter Administered Medications Inactive Administered Medications - up to 3 most recent administrations Medication Order MAR Action Action Date Dose Rate Site acetaminophen tablet 1,000 mg (TYLENOL) 1,000 mg, oral, Once, On 06/20/23 at 0930, For 1 dose, Pre-Op Given 06/20/2023 9:36 AM CDT 1,000 mg metoprolol tablet 12.5 mg (LOPRESSOR) 12.5 mg, oral, Once as needed, if patient did not take their last scheduled dose of beta james prior to arrival, Starting on Tue06/20/23 at 0904, For 1 dose, Pre-Op, Do not give if patient does not take scheduled beta blockers, if patient is receiving intravenous vasopressors or inotropes, if heart rate is less than 50 beats per minute, if systolic blood pressure is less than 90 mmHg or if diastolic blood pressure is less than 40 mmHg, or if patient has an allergy to metoprolol. oxyCODONE IR tablet 10 mg (ROXICODONE) 10 mg, oral, Every 4 hours PRN, severe pain or score 7-10 of 10, or pain greater than comfort goal, Starting on Tue06/20/23 at 1341 oxyCODONE IR tablet 5 mg (ROXICODONE) 5 mg, oral, Every 4 hours PRN, moderate pain or score 4-6 of 10, Starting on Tue06/20/23 at 1341 sodium chloride 0.9 % injection 10 mL 10 mL, intravenous, As needed, line care, Starting on Tue06/20/23 at 0904, Pre-Op, Peripheral Intravenous Catheter and Rapid Infusion Catheter, prior to blood sampling, post blood transfusion or post blood sampling sodium chloride 0.9 % injection 3 mL 3 mL, intravenous, As needed, line care, Starting on Tue06/20/23 at 0904, Pre-Op, Prior to and following infusion and between multiple consecutive infusions: sodium chloride 0.9 % injection sodium chloride 0.9 % injection 3 mL 3 mL, intravenous, Every 12 hours scheduled, First dose on Tue06/20/23 at 2100, Pre-Op, Peripheral Intravenous Catheter and Rapid Infusion Catheter, when no infusion to maintain patency documented in this encounter Active and Recently Administered Medications Times are shown in CDT. Scheduled Medication Order 06/18/2023 06/19/2023 06/20/2023 acetaminophen tablet 1,000 mg (TYLENOL) (COMPLETED) 1,000 mg, oral, Once, On Tue06/20/23 at 0930, For 1 dose, Pre-Op 0936 (Given - Provid er: Akila Telles R.N.) acetaminophen tablet 1,000 mg (TYLENOL) 1,000 mg, oral, Every 6 hours, First dose on Tue06/20/23 at 1530 1530 (Due)2130 (Due) sodium chloride 0.9 % injection 3 mL 3 mL, intravenous, Every 12 hours scheduled, First dose on Tue06/20/23 at 2100, Pre-Op, Peripheral Intravenous Catheter and Rapid Infusion Catheter, when no infusion to maintain patency 2100 (Due) sodium chloride 0.9 % injection 3 mL 3 mL, intravenous, Every 12 hours scheduled, First dose on Tue06/20/23 at 2100, Pre-Op, Peripheral Intravenous Catheter and Rapid Infusion Catheter, when no infusion to maintain patency 2100 (Due) PRN Medication Order 06/18/2023 06/19/2023 06/20/2023 dexAMETHasone injection 4 mg (DECADRON) 4 mg, intravenous, Once as needed, nausea, vomiting, Starting on Tue06/20/23 at 1341, For 1 dose, Give only if NOT given during the pre or intraoperative period. If ondansetron ordered, give dexamethasone with first dose of ondansetron. haloperidol lactate injection 1 mg (HALDOL) 1 mg, intravenous, Every 6 hours PRN, nausea, vomiting, Starting on Tue06/20/23 at 1341, For 48 hours, Total of 3 doses in 24 hour period. RASS must be -2 or higher to administer. Reassess for nausea or vomiting after at least 10 minutes. If nausea or vomiting persists administer next ordered antiemetic medications (order for antiemetic medication administration ondansetron then haloperidol then prochlorperazine) ibuprofen tablet 600 mg (ADVIL,MOTRIN) 600 mg, oral, Every 6 hours PRN, mild pain or score 1-3 of 10, Starting on Tue06/20/23 at 1515, Take with food or milk if GI disturbances occur with use. lidocaine-EPINEPHrine 1 %-1:100,000 injection (XYLOCAINE W/EPI) (CANCELED) As needed, Starting on Tue06/20/23 at 1014, Intra-Op 1014 (Given - Provid er: Brooke Singh M.D. - Comment: right neck and chest) metoprolol tablet 12.5 mg (LOPRESSOR) 12.5 mg, oral, Once as needed, if patient did not take their last scheduled dose of beta james prior to arrival, Starting on Tue06/20/23 at 0904, For 1 dose, Pre-Op, Do not give if patient does not take scheduled beta blockers, if patient is receiving intravenous vasopressors or inotropes, if heart rate is less than 50 beats per minute, if systolic blood pressure is less than 90 mmHg or if diastolic blood pressure is less than 40 mmHg, or if patient has an allergy to metoprolol. naloxone injection 0.2 mg (NARCAN) 0.2 mg, intravenous, Once as needed, respiratory depression, Starting on Tue06/20/23 at 1341, For 1 dose, For RASS Score -4 or less, respiratory rate of less than 8 breaths/min. Notify provider/service and rapid response team (if available at institution). ondansetron (PF) injection 4 mg (ZOFRAN) 4 mg, intravenous, Every 6 hours PRN, nausea, vomiting, Starting on Tue06/20/23 at 1341, For 48 hours, Reassess for nausea or vomiting after at least 10 minutes. If nausea or vomiting persists administer next ordered antiemetic medications (order for antiemetic medication administration ondansetron then haloperidol then prochlorperazine). oxyCODONE IR tablet 10 mg (ROXICODONE)(Linked Group 1) 10 mg, oral, Every 4 hours PRN, severe pain or score 7-10 of 10, or pain greater than comfort goal, Starting on Tue06/20/23 at 1341 oxyCODONE IR tablet 5 mg (ROXICODONE)(Linked Group 1) 5 mg, oral, Every 4 hours PRN, moderate pain or score 4-6 of 10, Starting on Tue06/20/23 at 1341 prochlorperazine injection 5 mg (COMPAZINE) 5 mg, intravenous, Every 6 hours PRN, nausea, vomiting, Starting on Tue06/20/23 at 1341, For 48 hours, RASS must be -2 or higher to administer. Reassess for nausea/vomiting after at least 10 minutes. If nausea or vomiting persists administer next ordered antiemetic medications (order for antiemetic medication administration ondansetron then haloperidol then prochlorperazine) sodium chloride 0.9 % injection 10 mL 10 mL, intravenous, As needed, line care, Starting on Tue06/20/23 at 0904, Pre-Op, Peripheral Intravenous Catheter and Rapid Infusion Catheter, prior to blood sampling, post blood transfusion or post blood sampling sodium chloride 0.9 % injection 10 mL 10 mL, intravenous, As needed, line care, Starting on Tue06/20/23 at 0904, Pre-Op, Peripheral Intravenous Catheter and Rapid Infusion Catheter, prior to blood sampling, post blood transfusion or post blood sampling sodium chloride 0.9 % injection 3 mL 3 mL, intravenous, As needed, line care, Starting on Tue06/20/23 at 0904, Pre-Op, Prior to and following infusion and between multiple consecutive infusions: sodium chloride 0.9 % injection sodium chloride 0.9 % injection 3 mL 3 mL, intravenous, As needed, line care, Starting on Tue06/20/23 at 0904, Pre-Op, Prior to and following infusion and between multiple consecutive infusions: sodium chloride 0.9 % injection Linked Groups Order Group 1: oxyCODONE IR tablet 5 mg (ROXICODONE)Jump to med 5 mg, oral, Every 4 hours PRN, moderate pain or score 4-6 of 10, Starting on Tue06/20/23 at 1341 Or oxyCODONE IR tablet 10 mg (ROXICODONE)Jump to med 10 mg, oral, Every 4 hours PRN, severe pain or score 7-10 of 10, or pain greater than comfort goal, Starting on Tue06/20/23 at 1341 documented in this encounter Care Teams Data Integration Architect Relationship Specialty Start Date End Date None Reported, Pcp PCP - General Family Medicine 05/16/23 documented as of this encounter
--- OUTSIDE RECORDS SUMMARY | 2023-11-30 10:52 | XMS_ITS | Encounter Summary ---
Author Name Unknown Organization [facility] Address [address] [place] [address] Care Team Providers Care Loom Winder Tender Name Role Phone None Reported, Pcp Primary Care Provider Unavail able Reason for Visit * Auth/Cert (Routine) Specialty Diagnoses / Procedures Referred By Contac t Referred To Contact Diagnoses Obstructive Sleep Apnea Adult Obstructive Sleep Apnea Adult [G47.33] Procedures ENDOSCOPY SLEEP STATE Referral ID Status Reason Start Date Expiration Date Visits Re quested Visits Authorized [id number] 1 1 Encounter Details Date Type Department Care Team (Late st Contact Info) Description 05/16/2023 8:08 AM CDT Anesthesia Event RST ROMB MAIN OR [address] [place] [phone] Christian Glover APRN, CRNA, DNAP [address] [place] [phone] Anesthesia Record Procedure Summary Procedure Name Responsible Anesthesiologist Anesthesia Start Time Anesthesia Stop Time ENDOSCOPY SLEEP STATE. Christian Glover APRN FILM COATER, DNAP 05/16/23 0808 05/16/23 0840 Events Date Time Event Comment 05/16/2023 0800 0808 An Start Machine/Equipme nt Checked Infection Precautions Followed Procedure/Site Verified NPO Status Verified Supine Standard ASA Monitors Applied 0812 Turnover to Proceduralist 0824 Proc Start 0826 Proc Fin 0831 Turnover to ANE Staff 0831 an stop data 0840 An End I completed my handoff to the receiving staff during which we 1. Identified the patient 2. Identified the responsible provider 3. Reviewed the pertinent medical history 4. Discussed the surgical course 5. Reviewed intra-op anesthesia management and issues during anesthesia 6. Set expectations for post-procedure period 7. Allowed opportunity for questions and acknowledgement of understanding. Meds Name Total lidocaine 2% (mg) injection 60 mg ondansetron PF 4 mg/2 mL injection 4 mg propofol 10 mg/mL infusion 209.4 mg Lactated Ringers Free Drip 450 mL * Agents No agents on file. * Blood No blood administrations on file. Lines, Drains, and Airways Type Details Placement Removal Wound 05/16/23; 823; Othe r (scope); Throat; endoscopy sleep state 05/16/23 0824 by Roxann Figueroa RJoeN. Peripheral IV Placement Date: 04/22 05/13; Placement Time: 715; Change Due: 05/23/23; Catheter Size: 20 G; Orientation: Left; Location: Hand; Site Prep: Chlorhexidine (Preferred); Technique: Anatomical landmarks; Inserted by: ngl; Insertion Attempts: 1; Removal Date: 05/16/23; Removal Time: 0950 05/16/23 0716 by Camille Nelson CPT([facility]) 05/16/23 0950 by Daily Walker, RJoeN. documented in this encounter Social History Tobacco [...] often do you attend chur ch or restorationist services? 1 to 4 times per year [...] and heating? Not hard at all 04/04/2023 [facility] of Occupat ional Health - Occupational Stress [...] place to sleep or slept in a correction (including now)? No 04/04/2023 Nutrition Answer Date [...] AM CDT documented as of this encounter OR Notes * Anesthesia Postprocedure Evaluation - Christian Glover APRN, CRNA, DNAP - 05/16/2023 8:44 AM CDT Patient: Shashank Hastings Procedure Summary Date: 05/16/23 Room / Location: [address] 01 [address] / [facility] in [place], [place] Anesthesia Start: 807 Anesthesia Stop: 839 Procedure: ENDOSCOPY SLEEP STATE. Diagnosis: Obstructive Sleep Apnea Adult (Obstructive Sleep Apnea Adult [G47.33].) Providers: Nitin Gutiérrez M.D., M.S. Responsible Provider: Christian Glover APRN FILM COATER, DNAP Anesthesia Type: MAC ASA Status: 3 Anesthesia Type: MAC Last vitals Vitals Value Taken Time BP 94/43 05/16/23 0836 Temp Pulse 59 05/16/23 0843 Resp 16 05/16/23 0843 SpO2 94 % 05/16/23 0843 Vitals shown include unvalidated device data. Please reference Vitals flowsheet for most recent vital signs. Anesthesia Post Evaluation Patient Disposition: dismissal Cardiovascular status: hemodynamics (HR & BP) acceptable Respiratory status: patent airway with spontaneous effort Temperature: normothermic Oxygen requirements: room air Level of consciousness: awake Pain score: pain adequately controlled and/or at baseline Post Op nausea/vomiting: none Hydration status: euvolemic * Anesthesia Preprocedure Evaluation - Raymon Delgadillo M.D. - 05/16/2023 8:00 AM CDT Preprocedure Anesthesia & H&P Assessment Procedure Summary Date/Time: 05/16/23 0755 Procedure: ENDOSCOPY SLEEP STATE. Diagnosis: Obstructive Sleep Apnea Adult [G47.33] Pre-op diagnosis: Obstructive Sleep Apnea Adult [G47.33]. Location: [place] [address] / [facility] in [place], [place] Providers: Nitin Gutiérrez M.D., M.S. Pertinent components of the patient's history including current problem list, medical history, surgical history, family history, social history, medications and allergies were reviewed. Present illness and pre-op diagnosis were confirmed. The planned surgery / procedure was verified with the patient / legal guardian. The patient's general health condition remains unchanged RELEVANT COMORBID CONDITIONS No relevant active problems OBJECTIVE PHYSICAL EXAMINATION Airway (HEENT) Mallampati: II TM Distance: >3 FB Neck ROM: Full Mouth Opening: >3 cm Cardiovascular Rhythm: Regular Rate: Normal Cardiovascular Assessment: cardiovascular normal Pulmonary Pulmonary Assessment: Clear General / Constitutional Constitutional Assessment: Obese ASSESSMENT / PLAN ANESTHESIA PLAN ASA: 3 Anesthesia Plan: MAC Patient seen and allergies reviewed, anesthesia plan and risks discussed directly with patient /legal guardian or through an paraoptometric. Risks/Benefits/Alternatives of Blood transfusion discussed with patient / legal guardian, includingan opportunity to ask questions and/or decline some or all transfusion therapies. The patient / legal guardian consented to the use of all blood products, as deemed medically necessary Approval to Proceed: approved for anesthesia documented in this encounter Plan of Treatment Upcoming Encounters Date Type Department Care Team (Late st Contact Info) Description 01/10/2024 4:00 PM COMMERCIAL LINES UNDERWRITER Office [facility] [place], [place] [address] [place] [phone] Cody Gutiérrez M.D. [address] [place] [phone] 01/10/2024 7:00 PM COMMERCIAL LINES UNDERWRITER Appointment [facility] [place], [place] [address] [place] [phone] Cody Gutiérrez M.D. [address] [place] [phone] Discharge Disposition: Home or Self Care 01/11/2024 9:30 AM COMMERCIAL LINES UNDERWRITER Office Visit [facility] [place], [place] [address] [place] [phone] Cody Gutiérrze M.D. [address] [place] [phone] documented as of this encounter Visit Diagnoses Not on filedocumented in this encounter Administered Medications Inactive Administered Medications - up to 3 most recent administrations Medication Order MAR Action Action Date Dose Rate Site lactated ringers intravenous, Continuous Infusion: Per Instructions PRN, Starting on Tue05/16/23 at 0810, Anesthesia Intra-op New Bag 05/16/2023 8:10 AM CDT lidocaine (PF) (cardiac) injection intravenous, As needed, Starting on Tue05/16/23 at 0813, Anesthesia Intra-op Given 05/16/2023 8:13 AM CDT 60 mg ondansetron (PF) injection (ZOFRAN) intravenous, As needed, Starting on Tue05/16/23 at 0826, Anesthesia Intra-op Given 05/16/2023 8:26 AM CDT 4 mg propofol 10 mg/mL infusion (DIPRIVAN) intravenous, Continuous Infusion: Per Instructions PRN, Starting on Tue05/16/23 at 0814, Anesthesia Intra-op Rate/Dose Change 05/16/2023 8:22 AM CDT 250 mcg/kg/min 157.05 mL/hr Rate/Dose Change 05/16/2023 8:20 AM CDT 200 mcg/kg/min 125 .64 mL/hr Rate/Dose Change 05/16/2023 8:18 AM CDT 150 mcg/kg/min 94. 23 mL/hr documented in this encounter Care Teams Loom Winder Tender Relationship Specialty Start Date End Date None Reported, Pcp PCP - General Family Medicine 05/16/23 documented as of this encounter
--- OUTSIDE RECORDS SUMMARY | 2023-11-30 10:52 | XMS_ITS | Encounter Summary ---
Author Name Unknown Organization [facility] Address [address] [place] [address] Care Team Providers Care Cyber Software Engineer Name Role Phone None Reported, Pcp Primary Care Provider Unavail able Encounter Details Date Type Department Care Team (Latest Contact Info) Description 06/07/2023 Clinical Communication Department of Otorhinolaryngology in [place], [place] [address] [place] [phone] Nitin Gutiérrez M.D., M.S. [address] [place] [phone] Social History Tobacco Use Types Packs/Day Years [...] often do you attend chur ch or gnosticism services? 1 to 4 times per year 04/04/2023 Do you belong to any clubs o r organizations such as taoism groups, unions, fraternal or athletic groups, or [...] and heating? Not hard at all 04/04/2023 [facility] of Occupat ional Health - Occupational Stress [...] place to sleep or slept in a usp (including now)? No 04/04/2023 Nutrition Answer Date [...] st Contact Info) Description 01/10/2024 4:00 PM PRINCIPAL ARCHAEOLOGIST Office Visit [facility] [place], [place] [address] [place] [phone] Cody Gutiérrez M.D. [address] [place] [phone] 01/10/2024 7:00 PM PRINCIPAL ARCHAEOLOGIST Appointment [facility] [place], [place] [address] [place] [address] Cody Gutiérrez M.D. [address] [place] [phone] Discharge Disposition: Home or Self Care 01/11/2024 9:30 AM PRINCIPAL ARCHAEOLOGIST Office Visit [facility] [place], [place] [address] [place] [phone] Cody Gutiérrez M.D. [address] [place] [phone] documented as of this encounter Visit Diagnoses Not on filedocumented in this encounter Care Teams Cyber Software Engineer Relationship Specialty Start Date End Date None Reported, Pcp PCP - General Family Medicine 05/16/23 documented as of this encounter
--- OUTSIDE RECORDS SUMMARY | 2023-11-30 10:52 | XMS_ITS | Encounter Summary ---
Author Name Unknown Organization [facility] Address [address] [place] [address] Care Team Providers Care Audience Development Manager Name Role Phone None Reported, Pcp Primary Care Provider Unavail able Encounter Details Date Type Department Care Team (Latest Contact Info) Description 06/08/2023 Orders Only Department of Otorhinolaryngology in [place], [place] [address] [place] [phone] Nitin Gutiérrez M.D., M.S. [address] [place] [phone] Apnea Sleep Obstructive (Primary Dx) Social History [...] often do you attend chur ch or jehovah's witness services? 1 to 4 times per year 04/04/2023 Do you belong to any clubs o r organizations such as lutheran groups, unions, fraternal or athletic groups, or [...] and heating? Not hard at all 04/04/2023 [facility] of Occupat ional Health - Occupational Stress [...] place to sleep or slept in a retirement (including now)? No 04/04/2023 Nutrition Answer Date [...] st Contact Info) Description 01/10/2024 4:00 PM SERVER Office [facility] [place], [place] [address] [place] [address] Cody Gutiérrez M.D. [address] [place] [phone] 01/10/2024 7:00 PM SERVER Appointment [facility] [place], [place] [address] [place] [address] Cody Gutiérrez M.D. [address] [place] [phone] Discharge Disposition: Home or Self Care 01/11/2024 9:30 AM SERVER Office Visit [facility] [place], [place] [address] [place] [address] Cody Gutiérrez M.D. [address] [place] [address] documented as of this encounter Visit Diagnoses Diagnosis Apnea Sleep Obstructive- Primary documented in this encounter Care Teams Audience Development Manager Relationship Specialty Start Date End Date None Reported, Pcp PCP - General Family Medicine 05/16/23 documented as of this encounter
--- OUTSIDE RECORDS SUMMARY | 2023-11-30 10:52 | XMS_ITS | Encounter Summary ---
Author Name Unknown Organization [facility] Address [address] [place] [address] Care Team Providers Care Manager Enrollment Name Role Phone None Reported, Pcp Primary Care Provider Unavail able Encounter Details Date Type Department Care Team ([facility] st Contact Info) Description 06/20/2023 Orders Only Department of Otorhinolaryngology in [place], [place] [address] [place] [phone] Brooke Singh M.D. [address] [place] [address] Social History Tobacco Use Types Packs/Day Years [...] any clubs o r organizations such as restorationism groups, unions, fraternal or athletic groups, or [...] and heating? Not hard at all 04/04/2023 [facility] of Occupat ional Health - [...] place to sleep or slept in a longterm (including now)? No 04/04/2023 Nutrition Answer Date [...] st Contact Info) Description 01/10/2024 4:00 PM VINYL DIPPER Office Visit [facility] [place], [place] [address] [place] [phone] Cody Gutiérrez M.D. [address] [place] [phone] 01/10/2024 7:00 PM VINYL DIPPER Appointment [facility] [place], [place] [address] [place] [phone] Cody Gutiérrez M.D. [address] [place] [phone] Discharge Disposition: Home or Self Care 01/11/2024 9:30 AM VINYL DIPPER Office Visit [facility] [place], [place] [address] [place] [address] Cody Gutiérrez M.D. [address] [place] [phone] documented as of this encounter Visit Diagnoses Not on filedocumented in this encounter Care Teams Manager Enrollment Relationship Specialty Start Date End Date None Reported, Pcp PCP - General Family Medicine 05/16/23 documented as of this encounter
--- OUTSIDE RECORDS SUMMARY | 2023-11-30 10:52 | XMS_ITS | Encounter Summary ---
Author Name Unknown Organization [facility] Address [address] [place] [address] Care Team Providers Care General Office Worker Name Role Phone None Reported, Pcp Primary Care Provider Unavail able Reason for Visit * Auth/Cert (Routine) Specialty Diagnoses / Procedures Referred By Contac t Referred To Contact Diagnoses Obstructive Sleep Apnea Adult Obstructive Sleep Apnea Adult [G47.33] Procedures ENDOSCOPY SLEEP STATE Referral ID Status Reason Start Date Expiration Date Visits Re quested Visits Authorized [id number] 1 1 Encounter Details Date Type Department Care Team (Late st Contact Info) Description 05/16/2023 7:55 AM CDT - 05/16/2023 8:59 AM CDT Surgery RST ROMB MAIN OR [address] [place] [phone] Nitin Gutiérrez M.D., M.S. [address] [place] [phone] ENDOSCOPY SLEEP STATE. Social History Tobacco Use Types Packs/Day Years [...] How often do you attend chur or baptism services? 1 to 4 times per year 04/04/2023 Do you belong to any clubs o r organizations such as mosque groups, unions, fraternal or athletic groups, or [...] and heating? Not hard at all 04/04/2023 [facility] of Occupat ional Health - Occupational Stress [...] place to sleep or slept in a long term (including now)? No 04/04/2023 Nutrition Answer Date [...] Sign Reading Time Taken Comments Blood Pressure 103/64 05/16/2023 8:45 AM CDT Pulse 58 05/16/2023 8:55 AM CDT Temperature 36.4 ??C (97.5 ??F) 05/16/2023 8:45 AM CD T Respiratory Rate 17 05/16/2023 8:55 AM CDT Oxygen Saturation 94% 05/16/2023 8:55 AM CDT Inhaled Oxygen Concentration - - Weight 105 kg (230 lb 13.2 oz) 05/16/2023 6:47 A M CDT Height 173 cm (5' 8.11) 05/16/2023 6:47 AM CDT Body Mass Index 34.98 05/16/2023 6:47 AM CDT documented in this encounter Medications [...] mg capsule, sprinkle Take by mouth. 0 penicillin V potassium (VEETIDS) 500 mg tablet Take 1 tablet (500 mg total) by mouth 3 (three) times a day for 7 days. 21 tablet 0 05/16/2023 05/23/2023 aspirin-calcium carbonate 81 mg-300 mg calcium(777 mg) tablet Take by mouth. 0 ergocalciferol (Vitamin D2) 50,000 Unit capsule Take 50,000 Units by mouth once a week. 0 08/01/2023 mometasone (NASONEX) 50 mcg/actuation nasal spray 2 sprays. 0 10/11/2008 08/01/2023 ondansetron ODT (ZOFRAN-ODT) 4 mg disintegrating tablet Dissolve 4 mg in the mouth every 8 (eight) hours as needed. 0 08/08/2017 08/01/2023 documented as of this encounter OR Notes * Op Jesse - Brooke Singh M.D. - 05/16/2023 7:55 AM CDT Surgeon: Nitin Gutiérrez MD Mail Caller Surgeons: Brooke Singh MD Preoperative diagnosis: 1.Severe obstructive sleep apnea 2. CPAP intolerance Postoperative diagnosis: 1.Severe obstructive sleep apnea 2. CPAP intolerance Name of procedure: 1.Drug-induced sleep apnea Complications: None Anesthesia: MAC Procedural note: The patient was brought to the operating room and identified by name and clinic number. A procedural pause was undertaken, all parties agreed. After a 20 mg bolus of propofol, anesthesia successfullyinduced a plane of anesthesia with propofol to a level of 250 mcg/kg/min. At this level the patientwas noted to be obstructing. The 4.1 flexible bronchoscope was inserted into the nasal cavity and brought down to the level of the velum, oropharynx, tongue base, and epiglottis. Grading of the collapse is noted in the table below. Additional findings include slight retroflexion of the epiglottis, the full extent of which was difficult to assess based on grade 2 tongue base obstruction and prominent lingual tonsils. Once the procedure was completed, the patient was handed back to anesthesia forsuccessful emergence. There taken to the PACU in stable condition. All surgical pauses an universalprotocols were followed. Vote Classification System Level A-P Lateral Concentric Velum 2 Oropharynx 2 Tongue Base 2 Epiglottis 0 Grade 2 = obstruction, >75% narrowing, markedly reduced or absent airflow Grade 1 = vibration, 50%-75% narrowing, possible reduced airflow Grade 0 = no vibration of the involved structure and <50% airway narrowing compared with dimensions during spontaneous breathing A first responder was necessary for one or more of the following: opening, exposure and visualization during the case, maintaining hemostasis, wound closure. Brooke Singh M.D. documented in this encounter Miscellaneous Notes * Pre-Procedure Note - Brooke Singh M.D. - 05/15/2023 1:48 PM CDT OTORHINOLARYNGOLOGY - HEAD AND NECK SURGERY SURGICAL BRIEFING NOTE Procedure: Drug-Induced Sleep Endoscopy Indication: Obstructive sleep apnea Pertinent PMH: n/a Allergies: No Known Allergies ANESTHESIA - ETT (size/position/tape/tie): Mask/NC to Preoxygenate [...] POST-OP Medications: - N/A Resident Notes: AHI: 38.6 on recent WatchPAT Brooke Singh MD Resident Physician PGY 2 [facility] Department of Otolaryngology - Head & Neck Surgery Dr. Gutiérrez's Service documented in this encounter Plan of Treatment Upcoming Encounters Date Type Department Care Team (Late st Contact Info) Description 01/10/2024 4:00 PM LUTE PACKER OR APPLIER Office Visit [facility] [place], [place] [address] [place] [phone] Cody Gutiérrez M.D. [address] [place] [phone] 01/10/2024 7:00 PM LUTE PACKER OR APPLIER Appointment [facility] [place], [place] [address] [place] [address] Cody Gutiérrez M.D. [address] [place] [phone] Discharge Disposition: Home or Self Care 01/11/2024 9:30 AM LUTE PACKER OR APPLIER Office Visit [facility] [place], [place] [address] [place] [address] Cody Gutiérrez M.D. [address] [place] [phone] documented as of this encounter Procedures Procedure Name Priority Date/Time Associated Diagnosis Comments ADULT OXYGEN THERAPY Routine 05/16/2023 8:51 AM CDT GLUCOSE POCT, B Routine 05/16/2023 8:06 AM CDT ENDOSCOPY SLEEP STATE 05/16/2023 7:48 AM CDT Obstructive Sleep Apnea Adult documented in this encounter Results * Glucose, POCT (05/16/2023 8:06 AM CDT) Glucose, POCT, B 133 70 - 140 mg/dL 05/16/2023 8:08 AM CDT PCLX Blood 05/16/2023 8:06 AM CDT 05/16/2023 8:08 AM CDT Unknown Provider LAB POCT ORDERABLES- MANUAL POC [facility] [address] [place] [address], [facility] PCLX [facility] POC [address] [place] [address] documented in this encounter Visit Diagnoses Diagnosis Obstructive Sleep Apnea Adult documented in this encounter Administered Medications Inactive Administered Medications - up to 3 most recent administrations Medication Order MAR Action Action Date Dose Rate Site metoprolol tablet 12.5 mg (LOPRESSOR) 12.5 mg, oral, Once as needed, if patient did not take their last scheduled dose of beta james prior to arrival, Starting on Tue05/16/23 at 0659, For 1 dose, Pre-Op, Do not give if patient does not take scheduled beta blockers, if patient is receiving intravenous vasopressors or inotropes, if heart rate is less than 50 beats per minute, if systolic blood pressure is less than 90 mmHg or if diastolic blood pressure is less than 40 mmHg, or if patient has an allergy to metoprolol. sodium chloride 0.9 % injection 10 mL 10 mL, intravenous, As needed, line care, Starting on Tue05/16/23 at 0659, Pre-Op, Peripheral Intravenous Catheter and Rapid Infusion Catheter, prior to blood sampling, post blood transfusion or post blood sampling sodium chloride 0.9 % injection 3 mL 3 mL, intravenous, As needed, line care, Starting on Tue05/16/23 at 0659, Pre-Op, Prior to and following infusion and between multiple consecutive infusions: sodium chloride 0.9 % injection sodium chloride 0.9 % injection 3 mL 3 mL, intravenous, Every 12 hours scheduled, First dose on Tue05/16/23 at 0900, Pre-Op, Peripheral Intravenous Catheter and Rapid Infusion Catheter, when no infusion to maintain patency documented in this encounter Active and Recently Administered Medications Times are shown in CDT. Scheduled Medication Order 05/14/2023 05/15/2023 05/16/2023 acetaminophen tablet 1,000 mg (TYLENOL) 1,000 mg, oral, Once, On Tue05/16/23 at 0830, For 1 dose, Pre-Op 0830 (Due) sodium chloride 0.9 % injection 3 mL 3 mL, intravenous, Every 12 hours scheduled, First dose on Tue05/16/23 at 0900, Pre-Op, Peripheral Intravenous Catheter and Rapid Infusion Catheter, when no infusion to maintain patency 0900 (Due)2100 (Due) PRN Medication Order 05/14/2023 05/15/2023 05/16/2023 fentaNYL injection 25 mcg (SUBLIMAZE) 25 mcg, intravenous, Every 2 min PRN, moderate pain or score 4-6 of 10, severe pain or score 7-10 of 10, Starting on Tue05/16/23 at 0851, PACU (only), Up to maximum total dose of 100 mcg metoprolol tablet 12.5 mg (LOPRESSOR) 12.5 mg, oral, Once as needed, if patient did not take their last scheduled dose of beta james prior to arrival, Starting on Tue05/16/23 at 0659, For 1 dose, Pre-Op, Do not give if patient does not take scheduled beta blockers, if patient is receiving intravenous vasopressors or inotropes, if heart rate is less than 50 beats per minute, if systolic blood pressure is less than 90 mmHg or if diastolic blood pressure is less than 40 mmHg, or if patient has an allergy to metoprolol. sodium chloride 0.9 % injection 10 mL 10 mL, intravenous, As needed, line care, Starting on Tue05/16/23 at 0659, Pre-Op, Peripheral Intravenous Catheter and Rapid Infusion Catheter, prior to blood sampling, post blood transfusion or post blood sampling sodium chloride 0.9 % injection 3 mL 3 mL, intravenous, As needed, line care, Starting on Tue05/16/23 at 0659, Pre-Op, Prior to and following infusion and between multiple consecutive infusions: sodium chloride 0.9 % injection documented in this encounter Care Teams General Office Worker Relationship Specialty Start Date End Date None Reported, Pcp PCP - General Family Medicine 05/16/23 documented as of this encounter
--- OUTSIDE RECORDS SUMMARY | 2023-11-30 10:52 | XMS_ITS | Encounter Summary ---
Author Name Unknown Organization [facility] Address [address] [place] [address] Care Team Providers Care Research Compliance Specialist Name Role Phone None Reported, Pcp Primary Care Provider Unavail able Encounter Details Date Type Department Care Team ([facility] st Contact Info) Description 06/20/2023 9:45 AM CDT Anesthesia Event RST ROMB MAIN OR [address] [place] [phone] Josefina Snyder M.D. [address] [place] [phone] Damaso Cm M.D. [address] [place] [phone] Anesthesia Record Procedure Summary Procedure Name Responsible Anesthesiologist Anesthesia Start Time Anesthesia Stop Time INSERTION STIMULATOR HYPOGLOSSAL NERVE. (Right) Josefina Snyder M.D. 06/20/23 0945 06/20/23 1255 Events Date Time Event Comment 06/20/2023 0945 An Start Machine/Equipme nt Checked Infection Precautions Followed Procedure/Site Verified NPO Status Verified Supine Standard ASA Monitors Applied 0954 An Induction 0957 An Intubation 1000 Turnover to Proceduralist 1004 Quick Note Cuff switched t o leg 1033 Proc Start 1218 Proc Fin 1238 Airway Removal Criteria Met 1239 Extubation/Airway Removed 1243 Turnover to ANE Staff 1244 an stop data 1255 An End I completed my handoff to the receiving staff during which we 1. Identified the patient 2. Identified the responsible provider 3. Reviewed the pertinent medical history 4. Discussed the surgical course 5. Reviewed intra-op anesthesia management and issues during anesthesia 6. Set expectations for post-procedure period 7. Allowed opportunity for questions and acknowledgement of understanding. Meds Name Total fentanyl injection 50 mcg/mL 100 mcg lidocaine 2% (mg) injection 100 mg succinylcholine 20 mg/mL injection 120 m g phenylephrine 100 mcg/mL injection 100 m cg ePHEDrine PF 5 mg/mL syringe injection 4 0 mg ondansetron 4 mg/2 mL injection 4 mg propofol 10 mg/mL infusion 1,448.27 mg propofol 10 mg/mL injection 150 mg phenylephrine 20 mg/250 mL infusion 4.48 mg dexAMETHasone (DECADRON) injection 4 mg/ mL 4 mg ceFAZolin 2 g remifentaniL 20 mcg/mL in NaCl 0.9% 100 mL infusion (ULTIVA) 3.07 mg haloperidol 5 mg/mL injection 1 mg caffeine-sodium benzoate 250 mg (125 mg caffeine)/mL injection 250 mg Lactated Ringers Free Drip 700 mL * Agents No agents on file. * Blood No blood administrations on file. Lines, Drains, and Airways Type Details Placement Removal Wound 05/16/23; 08; Othe r (scope); Throat; endoscopy sleep state 05/16/23 0824 by Roxann Figueroa R.N. Wound 06/20/23; 1034; Inci ricardo; Neck; Right; insertion stimulator hypoglossal nerve 06/20/23 1034 by Roxann Figueroa R.N. Wound 06/20/23; 1035; Inci ricardo; Chest; Right, Upper; insertion hypoglossal nerve stimulator 06/20/23 1035 by Roxann Figueroa R.N. Peripheral IV Placement Date: 05/23 12/13; Placement Time: 917; Catheter Size: 20 G; Orientation: Left; Location: Hand; Site Prep: Chlorhexidine (Preferred); Inserted by: heb; Insertion Attempts: 1; Removal Date: 06/20/23; Removal Time: 1314; Removal Reason: Patient discharged 06/20/23917 by Cassia Reed 06/20/231314 by Daily Lorenzana R.N. ETT Placement Date: 05/23 12/13; Placement Time: 956 (created via procedure documentation); Mask Ventilation: Easy mask; Technique: Video laryngoscopy; Type: Standard ETT; Single Lumen Tube Size: 7.5 mm; Cuffed: Yes; Location: Oral; Grade View: Grade 1; Insertion Attempts: 1; Placement Verification: Bilateral breath sounds, Positive ETCO2, Symmetrical chest wall movement; Removal Date: 06/20/23; Removal Time: 12406/20/23 0957 by Yogesh Wilkinson R.N., CCRN 06/20/23 124 by Yogesh Wilkinson R.N., D[place] documented in this encounter Social History Tobacco [...] How often do you attend chur or restorationist services? 1 to 4 times per year 04/04/2023 Do you belong to any clubs o r organizations such as yarsani groups, unions, fraternal or athletic groups, or [...] heating? Not hard at all 04/04/2023 [facility] - Occupational [...] OR Notes * Anesthesia Postprocedure Evaluation - Josefina Snyder M.D. - 06/20/2023 1:39 PM CDT Patient: Shashank Hastings Procedure Summary Date: 06/20/23 Room / Location: [place] [address] / [facility] in [place], [place] Anesthesia Start: 0945 Anesthesia Stop: 1255 Procedure: INSERTION STIMULATOR HYPOGLOSSAL NERVE. (Right) Diagnosis: Apnea Sleep Obstructive (Apnea Sleep Obstructive [G47.33].) Providers: Nitin Gutiérrez M.D., M.S. Responsible Provider: Josefina Snyder M.D. Anesthesia Type: general ASA Status: 3 Anesthesia Type: general Last vitals Vitals Value Taken Time BP 100/80 06/20/23 1333 Temp 36.6 ??C 06/20/23 1250 Pulse 60 06/20/23 1317 Resp 16 06/20/23 1315 SpO2 89 % 06/20/23 1317 Vitals shown include unvalidated device data. Please reference Vitals flowsheet for most recent vital signs. Anesthesia Post Evaluation Patient Disposition: dismissal Cardiovascular status: hemodynamics (HR & BP) acceptable Respiratory status: patent airway with spontaneous effort Temperature: normothermic Oxygen requirements: room air Level of consciousness: awake Pain score: pain adequately controlled and/or at baseline Post Op nausea/vomiting: none Hydration status: euvolemic * Anesthesia Procedure Notes - Yogesh Wilkinson R.N., CCRN - 06/20/2023 10:10 AM CDTAssociated Order(s): Airway Airway Date/Time: 06/20/2023 9:57 AM Performed by: Yogesh Wilkinson R.N., LESLEEN Authorized by: Josefina Snyder M.D. Patient location during procedure: OR / Procedure Area PROCEDURE DETAILS: Mask difficulty assessment: easy mask Final airway type: video laryngoscope Laryngeal Manipulation: no Final best view of glottic structures - Cormack/Lehane Score: grade 1 ETT location: oral VL device: glide scope [place] scope blade size: 4 Tube size: 7.5 ETT distance at teeth/gum: 21 Oral tube type: standard ETT Cuffed: yes Leak Test Performed: no Number of attempt to successful placement: 1 Airway confirmation: bilateral breath sounds, positive ETCO2 and bilateral chest rise Other previous techniques attempted: none PRE PROCEDURE DETAILS: Pre evaluation for airway management: procedure Urgency: elective Preop assessment of probable difficulty: questionable / suspicious difficult airway Preoxygenation: bag valve mask SEDATION / ANESTHESIA Anesthesia method: anesthesia POST PROCEDURE DETAILS: Procedure outcome: successful Airway event: no complications * Anesthesia Preprocedure Evaluation - Damaso Cm M.D. - 06/20/2023 6:07 AM CDT Preprocedure Anesthesia & H&P Assessment Procedure Summary Date/Time: 06/20/23925 Procedure: INSERTION STIMULATOR HYPOGLOSSAL NERVE. (Right) Diagnosis: Apnea Sleep Obstructive [G47.33] Pre-op diagnosis: Apnea Sleep Obstructive [G47.33]. Location: [place] [address] / [facility] in [place], [place] Providers: Nitin Gutiérrez M.D., M.S. Pertinent components of the patient's history including current problem list, medical history, surgical history, family history, social history, medications and allergies were reviewed. Present illness and pre-op diagnosis were confirmed. The planned surgery / procedure was verified with the patient / legal guardian. The patient's general health condition remains unchanged RELEVANT COMORBID CONDITIONS ENDO (+) Diabetes Mellitus Type 2 Without Complication (HCC) NEURO (+) Stroke/Transient Ischemic Attack NOS Sleep (+) Apnea Sleep Obstructive OBJECTIVE PHYSICAL EXAMINATION Airway (HEENT) Mallampati: III TM Distance: >3 FB Neck ROM: Full Mouth Opening: >3 cm Upper Lip Bite Test Class: II Facies (pediatrics): normal Cardiovascular Rhythm: Regular Rate: Normal Cardiovascular Assessment: cardiovascular normal Functional Capacity: >4 METS Pulmonary Pulmonary Assessment: Clear General / Constitutional Constitutional Assessment: Generalized obesity General State of Health:: healthy appearing Neurological Normal Dental Normal ASSESSMENT / PLAN ANESTHESIA PLAN ASA: 3 Anesthesia Plan: general Patient seen and allergies reviewed; anesthesia plan and risks discussed directly with patient / legal guardian, or through an jail keeper; patient evaluated and approved for anesthesia / sedation Risks/Benefits/Alternatives of Blood transfusion discussed with patient [...] st Contact Info) Description 01/10/2024 4:00 PM BILLING MACHINE OPERATOR [facility] [place], [place] [address] [place] [phone] Cody Gutiérrez M.D. [address] [place] [phone] 01/10/2024 7:00 PM BILLING MACHINE OPERATOR [facility]ointment [facility] in [place], [place] [address] [place] [phone] Cody Gutiérrez M.D. [address] [place] [phone] Discharge Disposition: Home or Self Care 01/11/2024 9:30 AM BILLING MACHINE OPERATOR Office Visit [facility] in [place], [place] [address] [place] [phone] Cody Gutiérrez M.D. [address] [place] [phone] documented as of this encounter Procedures Procedure Name Priority Date/Time Associated Diagnosis Comments LDA ANE ENDOTRACHEAL AIRWAY Routine 06/20/2023 9:57 AM CDT documented in this encounter Results * LDA ANE ENDOTRACHEAL AIRWAY (06/20/2023 9:57 AM CDT) Narrative Yogesh Wilkinson R.N., LESLEEN - 06/20/2023 9:57 AM CDT Yogesh Wilkinson R.N., CCRN ? 06/20/2023 10:11 AM Airway Date/Time: 06/20/2023 9:57 AM Performed by: Yogesh Wilkinson R.N., CCRN Authorized by: Josefina Snyder M.D. ?? Patient location during procedure: OR / Procedure Area PROCEDURE DETAILS: Mask difficulty assessment: easy mask Final airway type: video laryngoscope Laryngeal Manipulation: no ?? Final best view of glottic structures - Cormack/Lehane Score: grade 1 ETT location: oral VL device: glide scope [place] scope blade size: 4 Tube size: 7.5 ETT distance at teeth/gum: 21 Oral tube type: standard ETT Cuffed: yes Leak Test Performed: no ?? Number of attempt to successful placement: 1 Airway confirmation: bilateral breath sounds, positive ETCO2 and bilateral chest rise Other previous techniques attempted: none PRE PROCEDURE DETAILS: Pre evaluation for airway management: procedure Urgency: elective Preop assessment of probable difficulty: questionable / suspicious difficult airway Preoxygenation: bag valve mask SEDATION / ANESTHESIA Anesthesia method: anesthesia POST PROCEDURE DETAILS: ? Procedure outcome: successful ?? Airway event: no complications Josefina Snyder M.D. ANESTHESIA ORDERABL ES documented in this encounter Visit Diagnoses Not on filedocumented in this encounter Administered Medications Inactive Administered Medications - up to 3 most recent administrations Medication Order MAR Action Action Date Dose Rate Site caffeine-sodium benzoate injection intravenous, As needed, Starting on Tue06/20/23 at 1236, Anesthesia Intra-op Given 06/20/2023 12:36 PM CDT 250 mg ceFAZolin injection (ANCEF) intravenous, As needed, Starting on Tue06/20/23 at 1009, Anesthesia Intra-op Given 06/20/2023 10:09 AM CDT 2 g dexAMETHasone injection (DECADRON) intravenous, As needed, Starting on Tue06/20/23 at 1009, Anesthesia Intra-op Given 06/20/2023 10:09 AM CDT 4 mg ePHEDrine (PF) injection intravenous, As needed, Starting on Tue06/20/23 at 1006, Anesthesia Intra-op Given 06/20/2023 12:31 PM CDT 10 mg Given 06/20/2023 12:07 PM CDT 10 mg Given 06/20/2023 10:16 AM CDT 10 mg fentaNYL injection (SUBLIMAZE) intravenous, As needed, Starting on Tue06/20/23 at 0954, Anesthesia Intra-op Given 06/20/2023 9:54 AM CDT 100 mcg haloperidol lactate injection (HALDOL) intravenous, As needed, Starting on Tue06/20/23 at 1202, Anesthesia Intra-op Given 06/20/2023 12:02 PM CDT 1 mg lactated ringers intravenous, Continuous Infusion: Per Instructions PRN, Starting on Tue06/20/23 at 0945, Anesthesia Intra-op New Bag 06/20/2023 9:45 AM CDT lidocaine (PF) (cardiac) injection intravenous, As needed, Starting on Tue06/20/23 at 0954, Anesthesia Intra-op Given 06/20/2023 9:54 AM CDT 100 mg ondansetron (PF) injection (ZOFRAN) intravenous, As needed, Starting on Tue06/20/23 at 1203, Anesthesia Intra-op Given 06/20/2023 12:03 PM CDT 4 mg phenylephrine 80 mcg/mL in NaCl 0.9% 250 mL infusion intravenous, Continuous Infusion: Per Instructions PRN, Starting on Tue06/20/23 at 0959, Anesthesia Intra-op Rate/Dose Change 06/20/2023 10:15 AM CDT 0.3 mcg/kg/min 23.872 mL/hr New Bag 06/20/2023 9:59 AM CDT 0.2 mcg/kg/min 15.915 mL /hr phenylephrine injection intravenous, As needed, Starting on Tue06/20/23 at 1000, Anesthesia Intra-op Given 06/20/2023 10:00 AM CDT 100 mcg propofol 10 mg/mL infusion (DIPRIVAN) intravenous, Continuous Infusion: Per Instructions PRN, Starting on Tue06/20/23 at 0954, Anesthesia Intra-op Rate/Dose Change 06/20/2023 12:03 PM CDT 50 mcg/kg/min 31.83 mL/hr New Bag 06/20/2023 9:54 AM CDT 100 mcg/kg/min 63.66 mL/ hr propofoL injection (DIPRIVAN) intravenous, As needed, Starting on Tue06/20/23 at 0954, Anesthesia Intra-op Given 06/20/2023 9:54 AM CDT 150 mg remifentaniL 20 mcg/mL in NaCl 0.9% 100 mL infusion (ULTIVA) intravenous, Continuous Infusion: Per Instructions PRN, Starting on Tue06/20/23 at 0954, Anesthesia Intra-op Rate/Dose Change 06/20/2023 12:24 PM CDT 0.05 mcg/kg/min 15.915 mL/hr Rate/Dose Change 06/20/2023 12:08 PM CDT 0.1 mcg/kg/min 31 .83 mL/hr New Bag 06/20/2023 9:54 AM CDT 0.2 mcg/kg/min 63.66 mL/ hr succinylcholine (PF) injection (ANECTINE) intravenous, As needed, Starting on Tue06/20/23 at 0956, Anesthesia Intra-op Given 06/20/2023 9:56 AM CDT 120 mg documented in this encounter Care Teams Research Compliance Specialist Relationship Specialty Start Date End Date None Reported, Pcp PCP - General Family Medicine 05/16/23 documented as of this encounter
--- OUTSIDE RECORDS SUMMARY | 2023-11-30 10:52 | XMS_ITS | Encounter Summary ---
Author Name Unknown Organization [facility] Address [address] [place] [address] Care Team Providers Care Fire Alarm Repairer Name Role Phone None Reported, Pcp Primary Care Provider Unavail able Encounter Details Date Type Department Care Team ([facility] st Contact Info) Description 06/20/2023 9:26 AM CDT - 06/20/2023 12:39 PM CDT Surgery RST ROMB MAIN OR [address] [place] [phone] Nitin Gutiérrez M.D., M.S. [address] [place] [phone] INSERTION STIMULATOR HYPOGLOSSAL NERVE. Social History Tobacco Use Types Packs/Day Years [...] often do you attend chur ch or sabianist services? 1 to 4 times per year 04/04/2023 Do you belong to any clubs o r organizations such as mormonism groups, unions, fraternal or athletic groups, or [...] and heating? Not hard at all 04/04/2023 [facility] - Occupational [...] place to sleep or slept in a residential (including now)? No 04/04/2023 Nutrition Answer Date [...] Sign Reading Time Taken Comments Blood Pressure 112/76 06/20/2023 7:45 AM CDT Pulse 48 06/20/2023 7:45 AM CDT Temperature 36.8 ??C (98.2 ??F) 06/20/2023 7:45 AM CD T Respiratory Rate - - Oxygen Saturation 95% 06/20/2023 7:45 AM CDT Inhaled Oxygen Concentration - - [...] encounter OR Notes * Op Jesse - Nitin Gutiérrez M.D., M.S. - 06/20/2023 10:33 AM CDT Surgeon: Nitin Gutiérrez MD Estate Planner Surgeons: Brooke Singh MD Preoperative diagnosis: 1. Severe obstructive sleep apnea 2. Continuous positive airway pressure intolerance Postoperative diagnosis: 1. Severe obstructive sleep apnea 2. Continuous positive airway pressure intolerance Name of procedure: 1. 12th cranial nerve (hypoglossal) stimulation implant (CPT 47004) 2. Placement of right pleural respiration sensor 3. Electronic analysis of the implanted neurostimulator pulse generator system (CPT 69720) Complications: None Anesthesia Type General Procedural note: [...] pauses and universal protocols were followed. A first mate was necessary for one or more of the following: opening, exposure and visualization during the case, maintaining hemostasis, would closure. Nitin Gutiérrez M.D., M.S. documented in this encounter Miscellaneous Notes * Pre-Procedure Note - Brooke Singh M.D. - 06/20/2023 7:13 AM CDT OTORHINOLARYNGOLOGY - BRIEFING NOTE - Dr. Brock Hastings, 62 y.o. [phone] Procedure: Insertion of Hypoglossal Nerve Stimulator Diagnosis: RENÉ, AHI 38 ANESTHESIA Anesthetic: General Anesthesia, no paralytic Airway plan: Oral endotracheal tube, taped to left Patient positioning: Patient supine, after intubation turn 180 degrees Paralysis: None (will be monitoring hypoglossal nerve) Antibiotics: Ancef, 2g Duration: 2 hours NURSING Meds: 1% lido with 1:100,000 epi Prep: Betadine - lower face, neck, below pec. Sula will air dry (no patting). Positioning: Turn [...] 2023 Brooke Singh MD Resident Physician PGY3 [facility] Department of Otolaryngology - Head & Neck Surgery Dr. Gutiérrez's Service documented in this encounter Plan of Treatment Upcoming Encounters Date Type Department Care Team (Late st Contact Info) Description 01/10/2024 4:00 PM WAGON DRIVER SALESPERSON Office Visit [facility] [place], [place] [address] [place] [phone] Cody Gutiérrez M.D. [address] [place] [phone] 01/10/2024 7:00 PM WAGON DRIVER SALESPERSON [facility]ointment [facility] in [address] [phone] Cody Gutiérrez M.D. [address] [place] [phone] Discharge Disposition: Home or Self Care 01/11/2024 9:30 AM WAGON DRIVER SALESPERSON Office Visit [facility] [place], [place] [address] [place] [phone] Cody Gutiérrez M.D. [address] [place] [phone] documented as of this encounter Procedures Procedure Name Priority Date/Time Associated Diagnosis Comments GLUCOSE POCT, B Routine 06/20/2023 1:05 PM CDT INSERTION STIMULATOR HYPOGLOSSAL NERVE 06/20/2023 9:30 AM CDT Apnea Sleep Obstructive Case Notes Roofing Technician 7:32 GLUCOSE POCT, B Routine 06/20/2023 9:13 AM CDT documented in this encounter Results * (ABNORMAL) Glucose, POCT (06/20/2023 1:05 PM CDT) Glucose, POCT, B 144(H) 70 - 140 mg/dL 06/20/2023 1:07 PM CDT PCLX Site Capillary 06/20/2023 1:07 PM CDT PCLX Blood 06/20/2023 1:05 PM CDT 06/20/2023 1:07 PM CDT Unknown Provider LAB POCT ORDERABLES- MANUAL Performing Organization Address City/[facility]/ZIP Co de Phone Number POC [facility] [address] [place] [address], [facility] PCLX [facility] POC [address] [place] [address] * (ABNORMAL) Glucose, POCT (06/20/2023 9:13 AM CDT) Glucose, POCT, B 144(H) 70 - 140 mg/dL 06/20/2023 9:15 AM CDT PCLX Site Capillary 06/20/2023 9:15 AM CDT PCLX Blood 06/20/2023 9:13 AM CDT 06/20/2023 9:16 AM CDT Unknown Provider LAB POCT ORDERABLES- MANUAL Performing Organization Address City/[facility]/ZIP Co de Phone Number POC [facility] [address] [place] [address], [facility] PCLX [facility] POC [address] [place] [address] documented in this encounter Visit Diagnoses Diagnosis Apnea Sleep Obstructive- Primary Diabetes Mellitus Type 2 (HCC) Diabetes Mellitus Type 2 Without Complication (HCC) Stroke/Transient Ischemic Attack NOS Apnea Sleep Obstructive documented in this encounter Admitting Diagnoses Diagnosis Apnea Sleep Obstructive documented in this encounter Administered Medications Inactive Administered Medications - up to 3 most recent administrations Medication Order MAR Action Action Date Dose Rate Site acetaminophen tablet 1,000 mg (TYLENOL) 1,000 mg, oral, Once, On Tue06/20/23 at 0930, For 1 dose, Pre-Op Given 06/20/2023 9:36 AM CDT 1,000 mg lidocaine-EPINEPHrine 1 %-1:100,000 injection (XYLOCAINE W/EPI) As needed, Starting on Tue06/20/23 at 1014, Intra-Op Given 06/20/2023 10:14 AM CDT 7 mL metoprolol tablet 12.5 mg (LOPRESSOR) 12.5 mg, [...] 1341 documented in this encounter Care Teams Fire Alarm Repairer Relationship Specialty Start Date End Date None Reported, Pcp PCP - General Family Medicine 05/16/23 documented as of this encounter
--- OUTSIDE RECORDS SUMMARY | 2023-11-30 10:53 | XMS_ITS | Encounter Summary ---
Author Name Unknown Organization [facility] Address [address] [place] [address] Care Team Providers Care Criminal Justice Professor Name Role Phone Unavailable Primary Care Provider Unavailabl e Reason for Visit * Outpatient (Routine) - Closed Specialty Diagnoses / Procedures Referred By Contac t Referred To Contact Diagnoses Apnea Sleep Obstructive Procedures Home sleep apnea test (HSAT) Kaemron Sorto M.D. [address] [place] [phone] [facility] Referral ID Status Reason Start Date Expiration Date Visits Re quested Visits Authorized [id number] Closed 04/04/2023 04/03/2024 1 1 Encounter Details Date Type Department Care Team (Latest Contact Info) Description 04/14/2023 7:30 AM CDT - 04/17/2023 11:59 PM CDT Hospital [facility] [place], [place] [address] [place] [phone] Kameron Sorto M.D. [address] [place] [phone] Discharge Disposition: Home or Self Care Social [...] and heating? Not hard at all 04/04/2023 [facility] [place] of Occupat ional Health - Occupational Stress [...] DR tablet Take by mouth daily. 0 8 ezetimibe-atorvastatin 10-10 mg tablet Take by mouth [...] mg capsule, sprinkle Take by mouth. 0 aspirin 325 mg tablet Take 1 tablet by mouth daily. 0 09/27/2016 05/16/2023 aspirin-calcium carbonate 81 mg-300 mg calcium(777 mg) tablet Take by mouth. 0 06/20/2023 ergocalciferol (Vitamin D2) 50,000 Unit capsule Take 50,000 Units by mouth once a week. 0 08/01/2023 escitalopram (LEXAPRO) 5 mg tablet Take 5 mg by mouth daily. 0 05/16/2023 eszopiclone (Lunesta) 2 mg tablet Take 1 tablet by mouth as needed. 0 11/08/2011 05/16/2023 melatonin 3 mg tablet Take 1 tablet by mouth as needed. 0 11/08/2011 05/16/2023 mometasone (NASONEX) 50 mcg/actuation nasal spray 2 sprays. 0 10/11/2008 ondansetron ODT (ZOFRAN-ODT) 4 mg disintegrating tablet Dissolve 4 mg in the mouth every 8 (eight) hours as needed. 0 08/08/2017 08/01/2023 simvastatin (ZOCOR) 10 mg tablet Take 1 tablet by mouth. 0 10/11/2008 05/16/2023 simvastatin (ZOCOR) 5 mg tablet Take by mouth. 0 05/16/2023 simvastatin (ZOCOR) 80 mg tablet Take 1 tablet by mouth daily. 0 11/08/2011 05/16/2023 documented as of this encounter Plan of Treatment Upcoming Encounters Date Type Department Care Team (Late st Contact Info) Description 01/10/2024 4:00 PM AQUATIC INSTRUCTOR [facility] [place], [place] [address] [place] [phone] Cody Gutiérrez M.D. [address] [place] [phone] 01/10/2024 7:00 PM AQUATIC INSTRUCTOR Appointment [facility] [place], [place] [address] [place] [phone] Cody Gutiérrez M.D. [address] [place] [phone] Discharge Disposition: Home or Self Care 01/11/2024 9:30 AM AQUATIC INSTRUCTOR Office Visit [facility] [place], [place] [address] [place] [phone] Cody Gutiérrez M.D. [address] [place] [phone] documented as of this encounter Procedures Procedure Name Priority Date/Time Associated Diagnosis Comments ND HOME SLEEP TEST TYPE GERALDINE 4 Routine 04/14/2023 8:44 AM CDT Apnea Sleep Obstructive documented in this encounter Results * Home sleep apnea test (HSAT) (04/14/2023 8:44 AM CDT) Narrative ONBASE - 04/21/2023 11:17 AM CDT SUMMARY A home sleep test was conducted using peripheral arterial tonometry (WatchPAT) apparatus. ??Total recording time was 437 minutes, and estimated total sleep time was 396.8 minutes. ??There appeared to be a good mix of sleep stages. ??The patient slept predominantly in the supine position. ?? Snoring above 40 decibels in intensity was present during 34.6% of the patient's sleep time, and there were frequent obstructive apneas and hypopneas - except for a period in the rmqgvh-vj-zit-night during which the patient slept for 77 minutes in the prone position. ??The overall apnea/hypopnea index was 38.6 per hour. ??The mean SpO2 was 89%, and the minimum saturation was 80%. ??The patient accumulated a total of 159.2 minutes with oxyhemoglobin saturations at, or below 88%. ??The mean heart rate was 55 beats per minute. CLINICAL INTERPRETATION The home sleep test demonstrated severe obstructive sleep apnea/hypopnea and sleep-related hypoxia. Kameron Sorto M.D. [facility]ENTER ORDERAB LES ONBASE NA documented in this encounter Visit Diagnoses Not on filedocumented in this encounter
--- OUTSIDE RECORDS SUMMARY | 2023-11-30 10:53 | XMS_ITS | Encounter Summary ---
Author Name Unknown Organization [facility] Address [address] [place] [address] Care Team Providers Care Gummed Tape Press Operator Name Role Phone Unavailable Primary Care Provider Unavailabl e Reason for Referral * Outpatient (Routine) - Closed Specialty Diagnoses / Procedures Referred By Demetrice steen Referred To Contact Diagnoses Apnea Sleep Obstructive Procedures Home sleep apnea test (HSAT) Kameron Sorto M.D. 200 [place] [phone] [facility] Referral ID Status Reason Start Date Expiration Date Visits Re quested Visits Authorized [id number] Closed 04/04/2023 04/03/2024 1 1 Reason for Visit * Outpatient (Routine) - Closed Specialty Diagnoses / Procedures Referred By Demetrice steen Referred To Contact Diagnoses Apnea Sleep Obstructive Procedures Home sleep apnea test (HSAT) Kameron Sorto M.D. [address] [place] [phone] [facility] Referral ID Status Reason Start Date Expiration Date Visits Re quested Visits Authorized [id number] Closed 04/04/2023 04/03/2024 1 1 Encounter Details Date Type Department Care Team (Latest Contact Info) Description 04/04/2023 11:07 AM CDT - 04/07/2023 11:59 PM CDT Hospital Encounter [facility] [place], [place] [address] [place] [phone] Kameron Sorto M.D. 200 [place] [phone] Apnea Sleep Obstructive Discharge Disposition: Home or [...] often do you attend chur ch or taoist services? 1 to 4 times per year 04/04/2023 Do you belong to any clubs o r organizations such as shinto groups, unions, fraternal or athletic groups, or [...] and heating? Not hard at all 04/04/2023 [facility] [place] of Occupat ional Health - Occupational Stress [...] st Contact Info) Description 01/10/2024 4:00 PM NIGHT TIME BABYSITTER Office Visit [facility] [place], [place] [address] [place] [phone] Cody Gutiérrez M.D. [address] [place] [phone] 01/10/2024 7:00 PM NIGHT TIME BABYSITTER Appointment [facility] [place], [place] [address] [place] [phone] Cody Gutiérrez M.D. [address] [place] [phone] Discharge Disposition: Home or Self Care 01/11/2024 9:30 AM NIGHT TIME BABYSITTER Office Visit [facility] [place], [place] [address] [place] [phone] Cody Gutiérrez M.D. [address] [place] [phone] documented as of this encounter Procedures Procedure Name Priority Date/Time Associated Diagnosis Comments [place] HOME SLEEP TEST TYPE GERALDINE 4 Routine [...] - except for a period in the fmpcfx-zy-xuv-night during which the patient slept for 77 [...]
--- OUTSIDE RECORDS SUMMARY | 2023-11-30 10:53 | XMS_ITS | Encounter Summary ---
Author Name Unknown Organization [facility] Address [address] [place] [address] Care Team Providers Care Dinkey Driver Name Role Phone Unavailable Primary Care Provider Unavailabl e Reason for Referral * Outpatient (Routine) - Closed Specialty Diagnoses / Procedures Referred By Contac t Referred To Contact Sleep Medicine Diagnoses Apnea Sleep Obstructive Jacky Myles M.D. [address] [place] [phone] [facility] Referral ID Status Reason Start Date Expiration Date Visits Re quested Visits Authorized [id number] Closed 01/25/2023 01/25/[address] Encounter Details Date Type Department Care Team (Late st Contact Info) Description 01/25/2023 [facility] [address] [place] [address] Jacky Myles M.D. [address] [place] [phone] Apnea Sleep Obstructive (Primary Dx) Social History Tobacco Use Types Packs/Day Years Used Date Smoking Tobacco: Former Sex and Gender Information Value Date Recorded Sex Assigned at Male 04/04/2023 10:07 AM CDT Gender Identity Male 04/04/2023 10:07 AM CDT Sexual Orientation Straight 04/04/2023 10 :07 AM CDT documented as of this encounter Plan of Treatment Upcoming Encounters Date Type Department Care Team (Late st Contact Info) Description 01/10/2024 4:00 PM SHOWPLACE MANAGER Office Visit [facility] [place], [place] [address] [place] [phone] Cody Gutiérrez M.D. [address] [place] [phone] 01/10/2024 7:00 PM SHOWPLACE MANAGER Appointment [facility] [place], [place] [address] [place] [phone] Cody Gutiérrez M.D. [address] [place] [phone] Discharge Disposition: Home or Self Care 01/11/2024 9:30 AM SHOWPLACE MANAGER Office Visit [facility] [place], [place] [address] [place] [phone] Cody Gutiérrez M.D. [address] [place] [phone] Scheduled Referrals Name Type Priority Associated Diagnoses Orde r Schedule Sleep Disorders Referral Outpatient Referral Routine Apnea Sleep Obstructive Expected: 01/25/2023 (Approximate), Expires: 04/27/2024 documented as of this encounter Visit Diagnoses Diagnosis Apnea Sleep Obstructive- Primary documented in this encounter
--- OUTSIDE RECORDS SUMMARY | 2023-11-30 10:53 | XMS_ITS | Encounter Summary ---
Author Name Unknown Organization [facility] Address [address] [place] [address] Care Team Providers Care Green Marketer Name Role Phone Unavailable Primary Care Provider Unavailabl e Reason for Visit * Reason Onset Date Comments Pre-visit Intake 04/01/2023 Encounter Details Date Type Department Care Team (Latest Contact Info) Description 04/01/2023 9:45 AM CDT Clinical Communication Virtual Review in [place], [place] 200 [place], [place] [phone] Pre-visit Intake Social History Tobacco Use Types Packs/Day Years Used Date Smoking Tobacco: Former Cigarettes Q uit: 12/23/2004 Smokeless Tobacco: Never Tobacco Cessation:Counseling Given: Not Answered Nutrition Answer Date Recorded Nutrition: EVOO Fat Source Unknown 02/10 Nutrition: Servings of Fruits/Vegetables per Day Not on file 02/10/2023 Dental Answer Date Recorded Dental: Regular Dentist Unknown 02/11/20 Sex and Gender Information Value Date Recorded Sex Assigned at Male 04/04/2023 10:07 AM CDT Gender Identity Male 04/04/2023 10:07 AM CDT Sexual Orientation Straight 04/04/2023 10 :07 AM CDT documented as of this encounter Plan of Treatment Upcoming Encounters Date Type Department Care Team (Late st Contact Info) Description 01/10/2024 4:00 PM DRY HOUSE TENDER Office Visit [facility] in [place], [place] [address] [place] [phone] Cody Gutiérrez M.D. [address] [place] [phone] 01/10/2024 7:00 PM DRY HOUSE TENDER Appointment [facility] [place], [place] [address] [place] [phone] Cody Gutiérrez M.D. [address] [place] [phone] Discharge Disposition: Home or Self Care 01/11/2024 9:30 AM DRY HOUSE TENDER Office Visit [facility] in [place], [place] [address] [place] [phone] Cody Gutiérrez M.D. [address] [place] [phone] documented as of this encounter Visit Diagnoses Not on filedocumented in this encounter
--- OUTSIDE RECORDS SUMMARY | 2023-11-30 10:53 | XMS_ITS | Encounter Summary ---
Author Name Unknown Organization [facility] Address [address] [place] [address] Care Team Providers Care Manager Programming Name Role Phone Unavailable Primary Care Provider Unavailabl e Reason for Referral * Outpatient (Routine) - Closed Specialty Diagnoses / Procedures Referred By Demetrice steen Referred To Contact Sleep Medicine Kameron Sorto M.D. [address] [place] [phone] [facility] Referral ID Status Reason Start Date Expiration Date Visits Re quested Visits Authorized [id number] Closed 04/04/2023 04/03/2026 1 1 Scheduling Instructions Video visit to be done after HSAT * Outpatient (Routine) - Closed Specialty Diagnoses / Procedures Referred By Demetrice steen Referred To Contact Diagnoses Apnea Sleep Obstructive Procedures Home sleep apnea test (HSAT) Kameron Sorto M.D. 200 [place] [phone] [facility] Referral ID Status Reason Start Date Expiration Date Visits Re quested Visits Authorized [id number] Closed 04/04/2023 04/03/2024 1 1 * Outpatient (Routine) - Closed Specialty Diagnoses / Procedures Referred By Demetrice steen Referred To Contact Otorhinolaryngology Diagnoses Apnea Sleep Obstructive Kameron Sorto M.D. [address] [place] [address] [place] [phone] [facility] Referral ID Status Reason Start Date Expiration Date Visits Re quested Visits Authorized [id number] Closed 04/04/2023 04/03/2024 1 1 Reason for Visit * Outpatient (Routine) - Closed Specialty Diagnoses / Procedures Referred By Contambreen t Referred To Contact Sleep Medicine Diagnoses Apnea Sleep Obstructive Jacky Myles M.D. [address] [place] [phone] [facility] Referral ID Status Reason Start Date Expiration Date Visits Re quested Visits Authorized [id number] Closed 01/25/2023 01/25/2024 1 1 Encounter Details Date Type Department Care Team (Latest Contact Info) Description 04/04/2023 10:00 AM CDT Comprehensive Visit [facility] in [place], [place] [address] [place] [phone] Kameron Sorto M.D. [address] [place] [phone] Apnea Sleep Obstructive (Primary Dx) Social History [...] often do you attend chur ch or taoism services? 1 to 4 times per year [...] and heating? Not hard at all 04/04/2023 [facility] of Occupat ional Health - Occupational Stress [...] Sign Reading Time Taken Comments Blood Pressure 112/72 04/04/2023 9:33 AM CDT Pulse 75 04/04/2023 9:33 AM CDT Temperature - - Respiratory Rate - - Oxygen Saturation - - Inhaled Oxygen Concentration - - Weight 106 kg (234 lb 9.1 oz) 04/04/2023 9:33 AM CDT shoes on Height 175.9 cm (5' 9.25) 04/04/2023 9:33 AM CD T shoes on Body Mass Index 34.39 04/04/2023 9:33 AM CDT documented in this encounter Consult Notes * Kameron Sorto M.D. - 04/04/2023 10:00 AM CDT REFERRAL SOURCE Jacky Myles M.D. [address] [place] [address] REASON FOR CONSULT At Dr. Myles's request, the patient was [facility] regarding sleep apnea. He was accompanied to the appointment by his , and both participated in the interview. HISTORY OF PRESENT ILLNESS Mr. Hastings is a 62-year-old gentleman from [place], [place], who has reportedly snored loudly throughout much of his adult life. When daytime fatigue and sleepiness emerged some 15 or 20 years ago, the patient underwent a sleep study at the [facility] in [place], [place]. Although no report from that study is immediately available, the patient and his recall that it demonstrated significant sleep apnea. (He thinks that he may have had apneic pauses up to 108 seconds in duration.) Treatment was prescribed with continuous positive airway pressure (CPAP), but thepatient says that the apparatus kept him awake at night and irritated his nose. He therefore did not employ CPAP regularly at home. About 15 years ago, Mr. Hastings suffered a stroke that left him with a left hemiparesis and dysesthesias. He was again advised to undertake treatment with CPAP or, somewhat later, with bi-level positive airway pressure - probably in the spontaneous mode (BiPAP/S). Unfortunately, the patient says that he did not observe benefit from this treatment; and, once again, he did not use the PAP apparatus regularly at home. Mr. Hastings did lose significant weight as he rehabilitated from his stroke, however. He subsequently felt much more refreshed by his sleep, and his snoring reportedly decreased as well. Unfortunately, the patient regained weight during the COVID- pandemic. Symptoms of daytime fatigue and sleepiness returned, and the patient's moved to a separate bedroom because of his loud irregular snoring during sleep. He reportedly renewed efforts to employ PAP therapy - until his Brandon flow generator was recalled a couple of years ago. The patient then went without any treatment for sleep apnea until a new PAP device was delivered only recently. He can rarely tolerate using the apparatus for more than three hours per night, however; and he again reports irritation of his nose while using a full face mask, frequent air leaks, xerostomia, and occasional morning headaches. The shanti hamilton is interested in alternatives to PAP therapy. Mr. Hastings goes to bed around 9:30 p.m., and he falls quickly to sleep. The patient gets up tothe bathroom 2 or 3 times during a typical night, but he can generally get back to sleep readily. He awakens for the day around 7 a.m., but he does not feel particularly refreshed. The patient often supplements his nocturnal rest with a 60-90 minute nap in the afternoon. He also acknowledges dozingunintentionally at times during quiet activities, such as watching television; but he has not had any problem maintaining alertness while driving. His score on the Wallback Sleepiness Scale is within normal limits, at 6. Mr. Hastings has apparently had isolated episodes of sleep paralysis. There is no history of cataplexy or hypnagogic hallucinations, however; and he denies having any restless dysesthesia in his limbs or manifesting any abnormal movements during sleep. The following portions of the patient's medical record were reviewed and updated, as appropriate: Past medical and surgical history, family history, social history, review of systems, current medications, and allergies. Pertinent information includes: PAST MEDICAL HISTORY Cerebrovascular accident (2007), with residual left hemiparesis and dysesthesias. Hyperlipidemia. Type 2 diabetes mellitus. Gastroesophageal reflux disease. Rheumatoid arthritis. Chronic neck and low back pain. Migraine headaches. Major depression. FAMILY HISTORY Mr. Hastings notes that his late brother suffered from insomnia and sleep apnea. SOCIAL HISTORY The patient is . As a younger man, he served in the [employer]. 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 The patient enjoys a single cup of caffeinated coffee most mornings. He has not used tobacco since the age of 44, and he has abstained from alcohol since his stroke in 2007. REVIEW OF SYSTEMS Fatigue: Yes Visual problems: Yes Double vision: Yes No ENT issues: Yes No heart issues: Yes No respiratory issues: Yes Heartburn: Yes Muscle pain/stiffness: Yes Pain or stiffness in the joints: Yes No skin issues: Yes Headache: Yes Loud snoring: Yes Excessive daytime sleepiness/tiredness: Yes Stop breathing, choking, or gasping while asleep: Yes No blood/lymph issues: Yes Frequent urination: Yes VITAL SIGNS Height 175.9 cm. Weight 106 kg. Calculated BMI 34.4 kg/m2. Pulse 75 beats per minute. Blood pressure 112/72. PHYSICAL EXAMINATION General: Appearance normal. ENT: Air flow through both nostrils appears to be adequate. Teeth and gums are satisfactory. Tongueposition is Myers class 1. Neck: Circumference is 44 cm. Thyroid is normal to palpation. Jugular veins are normal. Lungs: Chest expansion and symmetry normal. Respiratory effort normal. Percussion of chest normal. Palpation of chest normal. Auscultation of lungs normal. Heart: Auscultation of heart normal. No pedal edema. Carotid pulses normal, without bruits. Radial pulses normal. Abdomen: Obese and nontender. No masses or bruits. No organomegaly. Lymph: No cervical or supraclavicular adenopathy. Musculoskeletal: The patient is able to ambulate independently with a cane. Strength and tone are grossly normal throughout. Extremities: No clubbing, cyanosis, or edema. Skin: No rash or significant lesions noted. Mental Status: Oriented in all spheres. Mood is mildly dysphoric, but affect is appropriately animated and congruent with thought content. Speech is clear and of normal rate. There is no suggestion of any cognitive inefficiency. ASSESSMENT / PLAN #1 Obstructive sleep apnea/hypopnea This diagnosis was reportedly confirmed by a sleep study in [place], [place], 15-20 years ago;but no report is immediately available. As noted above, the patient has had considerable fluctuations in his weight and has suffered a stroke since his previous evaluation in the sleep laboratory; and I do not think that we should base treatment recommendations on the old study in any case. Rather, I have recommended proceeding now with a home sleep test using peripheral arterial tonometry (WatchPAT) apparatus that we will mail to the patient; and I will see him back to discuss the results. For now, the patient may continue his efforts to employ CPAP during sleep - except during the nightof the home sleep test - but we will also consider possible alternative interventions such as a mandibular advancement device or upper airway neurostimulation. (Mr. Hastings is particularly interested in the latter, and I will arrange for him to see Dr. Nitin Gutiérrez in the ENT Department for a preliminary consultation.) I encouraged renewed efforts at weight loss in any case; and, although the patient does not report having a problem with drowsiness at the wheel, I counseled him not to drive or to operate machinery at any time if he is not fully alert. BILLING CODE N4. I personally spent 50 minutes today in the care of the patient, including both wvdp-yr-tahs qbdyqh-lqlp-vw-face time. Kameron Sorto M.D. CT CT Job ID: [id number] documented in this encounter Plan of Treatment Upcoming Encounters Date Type Department Care Team (Late st Contact Info) Description 01/10/2024 4:00 PM MARKETING AUTOMATION ANALYST [facility] [place], [place] [address] [place] [phone] Cody Gutiérrez M.D. [address] [place] [phone] 01/10/2024 7:00 PM MARKETING AUTOMATION ANALYST [facility]ointment [facility] in [address] [phone] Cody Gutiérrez M.D. [address] [place] [phone] Discharge Disposition: Home or Self Care 01/11/2024 9:30 AM MARKETING AUTOMATION ANALYST Office Visit [facility] in [address] [phone] Cody Gutiérrez M.D. [address] [place] [phone] Scheduled Referrals Name Type Priority Associated Diagnoses Order Schedule Otorhinolaryngology - Sleep surgery consult (clinic) Outpatient Referral Routine Apnea Sleep Obstructive Expected: 04/04/2023 (Approximate), Expires: 07/05/2024 Sleep Medicine office visit (clinic) Outpatient Referral Routine 1 Occurrences starting 04/04/2023 until 07/05/2024 documented as of this encounter Results * [...] - except for a period in the dklqcn-kq-hlv-night during which the patient slept for 77 [...]
--- OUTSIDE RECORDS SUMMARY | 2023-11-30 10:53 | XMS_ITS | Encounter Summary ---
Author Name Unknown Organization [facility] Address [address] [place] [address] Care Team Providers Care Homicide Squad Sergeant Name Role Phone Unavailable Primary Care Provider Unavailabl e Reason for Visit * Reason Onset Date Comments schedule surgery 04/28/2023 Encounter Details Date Type Department Care Team (Latest Contact Info) Description 04/28/2023 Clinical Communication Department of Otorhinolaryngology in [place], [place] [address] [place] [phone] Nitin Gutiérrez M.D., M.S. [address] [place] [phone] schedule surgery Social History Tobacco Use Types Packs/Day Years [...] any clubs o r organizations such as spiritism groups, unions, fraternal or athletic groups, or [...] and heating? Not hard at all 04/04/2023 [facility] of Occupat ional Health - Occupational Stress [...] place to sleep or slept in a [place] facility (including now)? No 04/04/2023 Nutrition Answer Date [...] st Contact Info) Description 01/10/2024 4:00 PM FINANCIAL MANAGER [facility] [place], [place] [address] [place] [address] Cody Gutiérrez M.D. [address] [place] [phone] 01/10/2024 7:00 PM FINANCIAL MANAGER Appointment [facility] in [place], [place] [address] [place] [address] Cody Gutiérrez M.D. [address] [place] [phone] Discharge Disposition: Home or Self Care 01/11/2024 9:30 AM FINANCIAL MANAGER Office Visit [facility] in [place], [place] [address] [place] [address] Cody Gutiérrez M.D. [address] [place] [phone] documented as of this encounter Visit Diagnoses Not on filedocumented in this encounter
--- OUTSIDE RECORDS SUMMARY | 2023-11-30 10:53 | XMS_ITS | Encounter Summary ---
Author Name Unknown Organization [facility] Address [address] [place] [address] Care Team Providers Care Timber Deadener Name Role Phone Unavailable Primary Care Provider Unavailabl e Reason for Visit * Outpatient (Routine) - Closed Specialty Diagnoses / Procedures Referred By Demetrice t Referred To Contact Sleep Medicine Kameron Sorto M.D. [address] [place] [phone] [facility] Referral ID Status Reason Start Date Expiration Date Visits Re quested Visits Authorized [id number] Closed 04/04/2023 04/03/2026 1 1 Encounter Details Date Type Department Care Team (Late st Contact Info) Description 04/28/2023 8:30 AM CDT Virtual Visit [facility] in [place], [place] [address] [place] [phone] Kameron Sorto M.D. [address] [place] [phone] Obstructive Sleep Apnea Adult (Primary Dx); Hypoxia Sleep Related Social History Tobacco Use Types Packs/Day Years [...] How often do you attend chur or taoism services? 1 to 4 times per year 04/04/2023 Do you belong to any clubs o r organizations such as hindu groups, unions, fraternal or athletic groups, or [...] and heating? Not hard at all 04/04/2023 [facility] of Occupat ional Health - [...] place to sleep or slept in a fci (including now)? No 04/04/2023 Nutrition Answer Date [...] as of this encounter Progress Notes * Kameron Sorto M.D. - 04/28/2023 8:30 AM CDT Today's scheduled encounter was conducted by telephone with the patient at his home in [place], [place]. His participated in the discussion. CHIEF COMPLAINT/REASON FOR VISIT Discuss results of sleep study. DIAGNOSTICS As detailed in the home sleep test report of April 13, 2023, the study was conducted using peripheralarterial tonometry (WatchPAT) apparatus. Total recording time was 437 minutes, and estimated total sleep time was 396.8 minutes. There appeared to be a good mix of sleep stages. The patient slept pred ominantly in the supine position. Snoring above 40 decibels in intensity was present during 34.6% of the patient's sleep time, and there were frequent obstructive apneas and hypopneas as well - except for a period in the dohxun-xz-eck-night when the patient slept for 77 minutes off his back. The ove rall apnea/hypopnea index was 38.6 per hour. The mean SpO2 was 89%, and the minimum saturation was 80%. The patient accumulated a total of 159.2 minutes with oxyhemoglobin saturations at, or below 88%. The mean heart rate was 55 beats per minute. ASSESSMENT / PLAN #1 Obstructive sleep apnea/hypopnea This diagnosis was reportedly established by polysomnography performed in [place], [place], 15to 20 years ago; but no report is immediately available. Last month's home sleep test indicated that the patient's sleep- disordered breathing is severe, however, at least in the supine position that he seems to prefer; the calculated apnea/hypopnea index was 38.6 per hour. Mr. Hastings has never been able to tolerate positive airway pressure (PAP) therapy very well. He says that he has tried again to use his bi-level positive airway pressure (BiPAP) machine since his visit last month, but this did not go any better than in the past. He says that he simply cannot sleep very well with a mask on his face. I note that the patient was seen in consultation by Dr. Nitin Gutiérrez in the ENT Department on April 04, 2023; and he may be a candidate for upper airway neurostimulation, depending on further evaluation - including drug-induced sleep endoscopy. I will send a note to Dr. Gutiérrez today summarizing the results of the home sleep test and reiterating the patient's interest in pursuing alternatives to PAPtherapy. For now I advised Mr. Hastings to continue his efforts at weight loss; and, to the degree that he can avoid sleeping in the supine position, he might benefit from doing that as well. #2 Sleep-related hypoxia Mr. Hastings's home sleep test demonstrated more hypoxia than is typically seen with sleep apneaalone. The cause is not immediately clear. I note that a chest x-ray in December 2019 was negative;and an echocardiogram performed in December 2020 was also unremarkable - with an estimated left ventricular ejection fraction of 60% to 65%. Obesity could certainly be a factor: I note that the patient's calculated BMI was 34.4 kg/m2 when Isaw him last month. He is also an ex-smoker. I mentioned that we will likely want to repeat overnight oximetry or a home sleep test after the patient's sleep-disordered breathing has been further addressed; and I will defer to his primary physician, Dr. Jacky Myles in [place], as to whether or not any further cardiopulmonary work-up is indicated in the meantime. BILLING CODE Scheduled telephone encounter with established patient, 18 minutes. Kameron Sorto M.D. CT CT Job ID: [id number]/[id number] documented in this encounter Plan of Treatment Upcoming Encounters Date Type Department Care Team (Late st Contact Info) Description 01/10/2024 4:00 PM LABORER RAGS Office Visit [facility] [place], [place] [address] [place] [address] Cody Gutiérrez M.D. [address] [place] [phone] 01/10/2024 7:00 PM LABORER RAGS Appointment [facility] in [place], [place] [address] [place] [phone] Cody Gutiérrez M.D. [address] [place] [phone] Discharge Disposition: Home or Self Care 01/11/2024 9:30 AM LABORER RAGS Office Visit [facility] in [place], [place] [address] [place] [phone] Cody Gutiérrez M.D. [address] [place] [phone] documented as of this encounter Visit Diagnoses Diagnosis Obstructive Sleep Apnea Adult- Primary Hypoxia Sleep Related documented in this encounter
--- OUTSIDE RECORDS SUMMARY | 2023-11-30 10:53 | XMS_ITS | Encounter Summary ---
Author Name Unknown Organization [facility] Address [address] [place] [address] Care Team Providers Care Bilingual Counter Sales Retail Name Role Phone Unavailable Primary Care Provider Unavailabl e Reason for Visit * Outpatient (Routine) - Closed Specialty Diagnoses / Procedures Referred By Demetrice t Referred To Contact Otorhinolaryngology Diagnoses Apnea Sleep Obstructive Kameron Sorto M.D. [address] [place] [phone] [facility] Referral ID Status Reason Start Date Expiration Date Visits Re quested Visits Authorized [id number] Closed 04/04/2023 04/03/2024 1 1 Encounter Details Date Type Department Care Team (Latest Contact Info) Description 04/04/2023 2:30 PM CDT Comprehensive Visit Department of Otorhinolaryngology in [place], [place] [address] [place] [phone] Nitin Gutiérrez M.D., M.S. [address] [place] [phone] Apnea Sleep Obstructive Social History Tobacco Use Types Packs/Day Years [...] How often do you attend chur or jewish services? 1 to 4 times per year 04/04/2023 Do you belong to any clubs o r organizations such as islam groups, unions, fraternal or athletic groups, or [...] and heating? Not hard at all 04/04/2023 [facility] of Occupat ional Health - [...] - Inhaled Oxygen Concentration - - Weight 107 kg (235 lb 3.7 oz) 04/04/2023 1:16 PM CDT Height 174.7 cm (5' 8.78) 04/04/2023 1:16 PM CD T Body Mass Index 34.96 04/04/2023 1:16 PM CDT documented in this encounter Consult Notes * Nitin Gutiérrez M.D. - 04/04/2023 2:30 PM CDT SUBJECTIVE CHIEF COMPLAINT / REASON FOR VISIT Obstructive sleep apnea with BiPAP intolerance The patient was referred for evaluation today by Dr. Sorto, [facility]. HISTORY OF PRESENT ILLNESS Mr. Hastings is a pleasant 62-year-old who is accompanied to the clinic today by his . He abril patient of Dr. Sorto who visited with him this morning to discuss his challenges with BiPAP in the setting of obstructive sleep apnea. The patient describes a diagnosis of obstructive sleep apnea going back to approximally 20 years ago. He had loud disruptive snoring and was diagnosed with RENÉ. He also has suffered a stroke when he was in his late 40s with unknown etiology. He had a history ofenlarged tonsils which were removed when he was in adult. He also describes a septoplasty and turbinate reduction at the same time of his tonsillectomy. His current challenges with his BiPAP include recurrent leak, feeling as though he does not sleep well with the device, and inadequate sleepiness/fatigue reduction. The following portions of the patient's history were reviewed and updated as appropriate: allergies, current medications, family history, medical history, social history, surgical history, and problem list. Social History Tobacco Use Smoking status: Former Types: Cigarettes Quit date: 12/23/2004 Years since quittin.2 Smokeless tobacco: Never REVIEW OF SYSTEMS Constitutional: Positive for fatigue. Eyes: Positive for double vision and visual problems. Gastrointestinal: Positive for heartburn. Genitourinary: Positive for frequent urination. Musculoskeletal: Positive for pain or stiffness in the joints and muscle pain/stiffness. Neurological: Positive for headaches. Psychiatric/Behavioral: Positive for excessive daytime sleepiness/tiredness, loud snoring and stopping breathing, choking, or gasping while asleep. The following systems were negative: Skin, ENT, Respiratory, Cardiovascular, Hematologic OBJECTIVE PHYSICAL EXAM Physical Exam Consitutional: General: Well developed, well nourished. No distress. BMI 34.96 Communication: The patient speaks with a normal voice without hoarseness. No signs of hyper or hyponasality. HEENT: Head: Normocephalic, atraumatic. Face: HB 1/6 bilaterally. No retrognathia or micrognathia. Eyes: DU, EOMI, conjunctiva clear, sclera is white. Ears: Normal external auricular anatomy, EAC is open and clear bilaterally with minimal cerumen. TMis visualized and is without abnormality. Nose: Normal external anatomy. Septum is midline with 0.5 x 0.4 mm perforation.. Inferior turbinates are bilaterally reduced. External nasal valve demonstrates no stenosis. No masses or lesions noted. Modified lynn maneuver is deferred. Oral cavity and oropharynx: Mucosa is pink and moist. Tongue is freely mobile. Relative macroglossia is absent. No masses or lesions present. Tonsils are surgically absent. Uvula is in the midline. Palate elevates symmetrically. Palatal redundancy is minimal. Modified Mallampati is 3. Myers tongue palate position is 3. Neck: Soft and supple without any scars or palpated masses. No obvious lymphadenopathy. Dentition/TMJ: Class 1 mandibular occlusion. Class 1 canine occlusion. 3rd molars are absent There is no anterior or posterior open bite. There is no crossbite. There is no dental crowding present. Upper and lower arches are without significant anatomic abnormalities. The patient has no significant overjet or overbite. Centerlines are normal without midline discrepancy. Oral hygiene is adequate, periodontal health is adequate without significant evidence of periodontitis, tooth quality is adequate without evidence of significant dental caries. TMJ: No pain to palpation of the TMJ bilaterally. No palpated clicking or grinding of the joint. Noobvious subluxation. No trismus noted. Respiratory: Normal respiration on inspection. No obvious difficulty in breathing at rest. Skin: Skin of the head and neck is without abnormalities such as obvious lesion or rash. Neuro: Alert and oriented. Normal mental status. PROCEDURE NOTE: Procedure: Flexible laryngoscopy, fiberoptic, diagnostic Details: After topical decongestion and anesthesia with lidocaine and afrin, the flexible laryngoscope was inserted into the right and left naris. The nasal cavity demonstrates no evidence of nasal polyposis,active nasal drainage, or inflammation. The nasopharynx, oropharynx, and hypopharynx were normal. At the level of the larynx, the epiglottis, false vocal folds, true vocal folds, arytenoids, and pyriform sinuses are without masses or lesions. The true vocal folds move freely bilaterally. The subglottis was easily seen with no evidence of stenosis. The patient tolerated the procedure well. ASSESSMENT / PLAN #1 Obstructive sleep apnea, unknown severity #2 BiPAP intolerance #3 BMI 34.96 #4 History of stroke Plan: I would a nice discussion today with Mr. Hastings regarding the options to treat his obstructivesleep apnea. First, we discussed why CPAP/BiPAP are typically the primary treatment modality given in the safety, predictability, efficacy, and long-term reliability. Unfortunately, he is not being particularly excited about continuing his BiPAP, and hence, he is come to my clinic to discuss alternatives. We discussed a variety of alternatives including surgery in an oral appliance. He is currently scheduled for a home sleep apnea test (WatchPAT) and I have asked him to contact me back after the results of this study and his return visit with Dr. Sorto to discuss whether he would like to pursue drug-induced sleep endoscopy. He feels comfortable that plan. All questions were answered. 40 mins was spent with the patient today with greater than 50% in counseling. This note was generated with the use of dictation software. Please excuse minor typos which are occasionally generated by this software documented in this encounter Plan of Treatment Upcoming Encounters Date Type Department Care Team (Late st Contact Info) Description 01/10/2024 4:00 PM FREIGHT ELEVATOR OPERATOR Office Visit [facility] [place], [place] [address] [place] [phone] Cody Gutiérrez M.D. [address] [place] [phone] 01/10/2024 7:00 PM FREIGHT ELEVATOR OPERATOR Appointment [facility] [place], [place] [address] [place] [address] Cody Gutiérrez M.D. [address] [place] [phone] Discharge Disposition: Home or Self Care 01/11/2024 9:30 AM FREIGHT ELEVATOR OPERATOR Office Visit [facility] in [place], [place] [address] [place] [address] Cody Gutiérrez M.D. [address] [place] [phone] documented as of this encounter Visit Diagnoses Diagnosis Apnea Sleep Obstructive documented in this encounter
--- OUTSIDE RECORDS SUMMARY | 2023-11-30 10:53 | XMS_ITS | Encounter Summary ---
Author Name Unknown Organization [facility] Address [address] [place] [address] Care Team Providers Care Coil Repair Technician Name Role Phone None Reported, Pcp Primary Care Provider Unavail able Reason for Visit * Auth/Cert (Routine) Specialty Diagnoses / Procedures Referred By Contac t Referred To Contact Diagnoses Obstructive Sleep Apnea Adult Obstructive Sleep Apnea Adult [G47.33] Procedures ENDOSCOPY SLEEP STATE Referral ID Status Reason Start Date Expiration Date Visits Re quested Visits Authorized [id number] 1 1 Encounter Details Date Type Department Care Team (Latest Contact Info) Description 05/16/2023 6:26 AM CDT - 05/16/2023 11:59 PM CDT Hospital Encounter [facility] [address] [place] [phone] Nitin Gutiérrez M.D., M.S. [address] [place] [phone] Discharge Disposition: Home or Self Care Social [...] any clubs o r organizations such as hoahaoism groups, unions, fraternal or athletic groups, or [...] and heating? Not hard at all 04/04/2023 [facility] of Occupat ional Health [...] Sign Reading Time Taken Comments Blood Pressure 112/68 05/16/2023 9:30 AM CDT Pulse 62 05/16/2023 9:50 AM CDT Temperature 36.4 ??C (97.5 ??F) 05/16/2023 8:45 AM CD T Respiratory Rate 8 05/16/2023 9:00 AM CDT Oxygen Saturation 93% 05/16/2023 9:50 AM CDT Inhaled Oxygen Concentration - - [...] 7:55 AM CDT Surgeon: Nitin Gutiérrez MD Sales Lead Surgeons: Brooke Singh MD Preoperative diagnosis: 1.Severe [...] with dimensions during spontaneous breathing A first aid teacher was necessary for one or more of [...] Brooke Singh MD Resident Physician PGY 2 [facility] Department of Otolaryngology - Head & Neck Surgery Dr. Gutiérrez's Service documented in this encounter Plan of Treatment Upcoming Encounters Date Type Department Care Team (Late st Contact Info) Description 01/10/2024 4:00 PM BRIM MOLDER Office Visit [facility] [place], [place] [address] [place] [phone] Cody Gutiérrez M.D. [address] [place] [phone] 01/10/2024 7:00 PM BRIM MOLDER Appointment [facility] [place], [place] [address] [place] [address] Cody Gutiérrez M.D. [address] [place] [phone] Discharge Disposition: Home or Self Care 01/11/2024 9:30 AM BRIM MOLDER Office Visit [facility] [place], [place] [address] [place] [phone] Cody Gutiérrez M.D. [address] [place] [phone] documented as of this encounter Procedures Procedure [...] LAB POCT ORDERABLES- MANUAL Performing Organization Address City/State/[facility] Co de Phone Number POC [facility] [address] [place] [address], [facility] PCLX [facility] 200 [place] [address] documented in this encounter Visit Diagnoses Not [...] injection documented in this encounter Care Teams Coil Repair Technician Relationship Specialty Start Date End Date None Reported, Pcp PCP - General Family Medicine 05/16/23 documented as of this encounter
--- OUTSIDE RECORDS SUMMARY | 2023-11-30 10:53 | XMS_ITS | Continuity of Care Document ---
Author Name Unknown Organization [facility] enter Address [address] [place] [phone] Phone Care Team Providers Care Detective Captain Name Role Phone [facility] Unavailable Unava ilable Procedures Procedure Date NEEDLE LOCALIZATION BY XRAY DRAIN/INJECT, JOINT/BURSA Without Ultras ound DRAIN/INJECT, JOINT/BURSA Without Ultras ound N BLOCK, OTHER PERIPHERAL N BLOCK, OTHER PERIPHERAL Pt doc no events on discharg Pt w/o preop order iv ab pro Advance Directives Directive Yes / No Effective Date File Name No Information Encounters Encounter Description Practice Location Reason(s) For Visit Diagnoses Date Provider Providers Copied on Encounter [facility], [address] [place] [address], [id number], tel:[phone] [place] [address] No Information 3 [facility]. [address] [place] [address], [id number], [place]. tel:[phone] Referring Provider: Vitaly Bah, [address] [place], [address] . tel:[phone] [facility], [address] [place] [address], [id number], tel:[phone] [place] [address] No Information 3 [facility]. [address] [place] [address] [address], [place], [place], [id number], [place]. tel:[phone] Referring Provider: Vitaly Bah, [address] [place], [address] . tel:[phone] Family History Family Member Type Diagnosis Age At Onset No Information Payers Payer name Insurance type Covered republican ID Authorchelo araiza(s) Medicare MB [id number] [facility] [id number] Social History Type Description Quantity Date Captured [...]
--- OUTSIDE RECORDS SUMMARY | 2023-11-30 10:53 | XMS_ITS | Encounter Summary ---
Author Name Unknown Organization [facility] Address [address] [place] [address] Care Team Providers Care Focusing Machine Operator Name Role Phone Unavailable Primary Care Provider Unavailabl e Encounter Details Date Type Department Care Team (Latest Contact Info) Description 04/04/2023 1:45 PM CDT Ancillary Procedure Department of Otorhinolaryngology Social History Tobacco Use Types Packs/Day Years [...] week 04/04/2023 How often do you attend [facility] or jew services? 1 to 4 times per year 04/04/2023 Do you belong to any clubs o r organizations such as caodaism groups, unions, fraternal or athletic groups, or [...] st Contact Info) Description 01/10/2024 4:00 PM SCADA TECHNICIAN Office [facility] [place], [place] [address] [place] [phone] Cody Gutiérrez M.D. [address] [place] [phone] 01/10/2024 7:00 PM SCADA TECHNICIAN Appointment [facility] [place], [place] [address] [place] [phone] Cody Gutiérrez M.D. [address] [place] [phone] Discharge Disposition: Home or Self Care 01/11/2024 9:30 AM SCADA TECHNICIAN Office Visit [facility] [place], [place] [address] [place] [address] Cody Gutiérrez M.D. [address] [place] [phone] documented as of this encounter Procedures Procedure Name Priority Date/Time Associated Diagnosis Comments OTORHINOLARYNGOLOGY IMAGE EXAM Routine 04/04/2023 1:43 PM CDT documented in this encounter Results * NOSE AND AIRWAY-Otorhinolaryngology Image Exam (04/04/2023 1:43 PM CDT) 04/04/2023 1:41 PM CDT Narrative IIM[facility] - 04/04/2023 1:43 PM CDT This order has been created and auto-finalized to support the import of images acquired without order. The clinical documentation to support these images can be found on the encounter that produced images. Provider Not In System IMG NON RAD IMAGI NG PROCEDURES [facility] NA documented in this encounter Visit Diagnoses Not on filedocumented in this encounter
--- OUTSIDE RECORDS SUMMARY | 2023-11-30 10:53 | XMS_ITS | Encounter Summary ---
Author Name Unknown Organization [facility] Address [address] [place] [address] Care Team Providers Care Outboard System Operator Name Role Phone Unavailable Primary Care Provider Unavailabl e Reason for Visit * Reason Onset Date Comments Pre-visit Intake 03/10/2023 Encounter Details Date Type Department Care Team (Latest Contact Info) Description 03/10/2023 10:45 AM CDT Clinical Communication Virtual Review in [place], [place] [address] [place], [place] [id number] Pre-visit Intake Social History Tobacco Use Types [...] st Contact Info) Description 01/10/2024 4:00 PM PIPED POCKET MACHINE OPERATOR [facility] [place], [place] [address] [place] [phone] Cody Gutiérrez M.D. [address] [place] [phone] 01/10/2024 7:00 PM PIPED POCKET MACHINE OPERATOR [facility]ointment [facility] [place], [place] [address] [place] [address] Cody Gutiérrez M.D. [address] [place] [phone] Discharge Disposition: Home or Self Care 01/11/2024 9:30 AM PIPED POCKET MACHINE OPERATOR Office Visit [facility] [place], [place] [address] [place] [address] Cody Gutiérrez M.D. [address] [place] [phone] documented as of this encounter Visit Diagnoses Not on filedocumented in this encounter
--- OUTSIDE RECORDS SUMMARY | 2023-11-30 10:54 | XMS_ITS | Clinical Summary ---
Author Name Unknown Organization [facility] Address [address] [place] [address] Care Team Providers Care Special Education Coordinator Name Role Phone Lucero Fraire MD Primary Care Provider Source Comments You are receiving this document as you are listed as the primary care provider,follow-up provider, or the patient has been referred to you for consultation.This is in compliance with the Medicare and[facility] Incentive Program,which states Providers who transition their patient to another setting of careor provider of care or refers their patient to another provider of care shouldprovide summary care record for each transition of care or referral. [facility] No known active allergies Medications Medication Sig Dispensed Refills Start Date End Date Status mometasone (AKA NASONEX) 50 MCG/ACT nasal solution 2 sprays by Each Nostril route daily (every 24 hours). 17 3 10/11/2008 Active esomeprazole (AKA NEXIUM) 20 MG capsule Take 1 capsule by mouth daily (every 24 hours). LW Addl Instr:Indicated for: Acid Reflux 30 0 11/26/2007 Active unknown medication Indications: PN: 0 10/11/2008 Active simvastatin (AKA ZOCOR) 10 MG tablet Take 1 tablet by mouth every evening. LW Addl Instr:Indicated for: High Cholesterol 90 3 10/11/2008 Active aspirin 81 MG tablet Take 1 tablet by mouth daily (every 24 hours). 90 3 10/11/2008 Active HYDROcodone-acetamino phen (AKA VICODIN,LORTAB) 5-500 MG tablet Take 1 tablet by mouth every 6 hours as needed. 0 07/03/2011 Active buPROPion (WELLBUTRIN) 75 MG tabletIndications:BRIDGETTEChinyere PUSHPA IBRAHIM Oct 08, 2014 4:49 PM Pt unsure of strength Take 75 mg by mouth 3 times daily. 0 10/08/2014 Active pantoprazole (PROTONIX) 40 MG tablet Take 40 mg by mouth daily. 0 Active aspirin EC (ECOTRIN) 325 MG enteric coated tablet Take 1 Tab by mouth daily. 30 Tab 0 09/27/2016 Active acetaminophen (TYLENOL) 325 MG tablet Take 1-2 Tabs by mouth every 4 hours as needed for Fever. Maximum acetaminophen dose is 4000 mg in 24 hours. 100 Tab 0 09/27/2016 Active oxyCODONE (ROXICODONE) 5 MG immediate release tablet Take 1 Tab by mouth every 4 hours as needed for Pain. 40 Tab 0 10/04/2016 Active oxyCODONE (ROXICODONE) 5 MG immediate release tablet Take 1 Tab by mouth every 4 hours as needed. 60 Tab 0 10/11/2016 Active Meloxicam (MOBIC) 15 MG tablet Take 1 Tab by mouth daily. 30 Tab 0 10/11/2016 Active HYDROcodone-acetamino phen (NORCO) 5-325 MG tabletIndications:Guillermo martin follow-up,Left knee pain, unspecified chronicity Take 1-2 Tabs by mouth every 8 hours as needed. 60 Tab 0 10/25/2016 Active escitalopram oxalate (LEXAPRO) 5 MG tablet Take 5 mg by mouth daily. 0 Active atorvastatin (LIPITOR) 40 MG tablet Take 40 mg by mouth daily. 0 Active diazePAM (VALIUM) 2 MG tablet Take 2 mg by mouth as needed for Anxiety. 0 Active fluticasone (FLONASE) 50 MCG/ACT nasal solution Place 2 Sprays into both nostrils daily. 0 Active acetaminophen (TYLENOL) 500 MG tablet Take 1 Tab by mouth every 4 hours as needed for Pain for up to 50 doses. Maximum acetaminophen dose is 4000 mg in 24 hours. 50 Tab 0 08/08/2017 Active HYDROcodone-acetamino phen (NORCO) 5-325 MG tablet Take 1 Tab by mouth every 6 hours as needed for Pain for up to 30 doses. Maximum acetaminophen dose is 4000 mg in 24 hours. 30 Tab 0 08/08/2017 Active ondansetron (ZOFRAN-ODT) 4 MG disintegrating tablet Take 1 Tab by mouth every 8 hours as needed for Nausea (Vomiting) for up to 4 doses. Dissolve tablet on tongue. 4 Tab 0 08/08/2017 Active Active Problems Problem Noted Date Diagnosed Date Tobacco use disorder 04/27/2003 Overview: Tobacco Abuse Lumbago 04/27/2003 Overview: Pain Low Back Immunizations Name Administration Dates Next Due Hib (ActHIB) 02/16/1994 PPSV23 (Pneumovax) 02/16/1994 TDAP (BOOSTRIX) 10/08/2014 Social History Tobacco Use Types Packs/Day Years Used Date Smoking Tobacco: Former Smokeless Tobacco: Never Comments:Quit smoking: Alcohol Use Standard Drinks/Week Comments No 0 (1 standard drink = 0.6 oz pur e alcohol) Sex and Gender Information Value Date Recorded Sex Assigned at Not on file Gender Identity Not on file Sexual Orientation Not on file Last Filed Vital Signs Vital Sign Reading Time Taken Comments Blood Pressure 99/62 08/08/2017 2:22 PM CDT Pulse 61 08/08/2017 2:22 PM CDT Temperature 36.4 ??C (97.5 ??F) 08/08/2017 2:22 PM CD T Respiratory Rate 16 08/08/2017 2:22 PM CDT Oxygen Saturation 96% 08/08/2017 2:22 PM CDT Inhaled Oxygen Concentration - - Weight 95.7 kg (211 lb) 08/08/2017 9:25 AM CDT Height 173.4 cm (5' 8.27) 08/08/2017 9:25 AM CD T Body Mass Index 31.83 08/08/2017 9:25 AM CDT Plan of Treatment Health Maintenance Due Date Last Done Comments Colon Cancer Screening Plan Due 1960 Hep C Screening (Preventive Services) 1960 PSA Screening Discussion 1960 COVID-19 Vaccine (#1) 03/22/1959 Adult Preventive Visit 1976 Cholesterol 1993 Zoster/Shingles (1 of 2) 2008 Influenza (#1) 2023 Pneumococcal 65+ Yrs (2 - PCV) 2023 02/16/1994 DTaP/Tdap/Td (2 - Tdap) 10/08/2024 10/08/2014 Hib Aged Out 02/16/1994 No longer eligi ble based on patient's age to complete this topic HepA Aged Out No longer eligi ble based on patient's age to complete this topic HepB Aged Out No longer eligi ble based on patient's age to complete this topic IPV (Polio) Aged Out No longer eligi ble based on patient's age to complete this topic MCV4 Aged Out No longer eligi ble based on patient's age to complete this topic Medical Devices Implanted Type Area Switchboard Troubleshooter Device Identifier Shelf Expiration Date Model / Serial / Lot Bone Putty Lupton Dbm 1cc - [id number] Implanted:Qty : 1 on 09/27/2016 by Kameron Morales MD at [facility] Left: LEG [employer] - [employer] 09/23/2018 [id number] / [id number] / 0 Description:For fusion of pr oximal tibial and fibula fracture Scr Canc Lg Hex 6.5x70 32-Thrd - [id number] Implanted:Qty : 2 on 09/27/2016 by Kameron Morales MD at [facility] Left: LEG [employer] [id number] / 0 / 0 Washer Lg Scr 13.0mm Od - [id number] Implanted:Qty : 2 on 09/27/2016 by Kameron Morales MD at [facility] Left: LEG [employer] [id number] / 0 / 0 Advance Directives Latest Code Status on File Code Status Date Activated Date Inactivated Comments Full Code 08/08/2017 1:07 PM 08/08/2017 5:07 PM Full code in effect for 30 days Code Status History Code Status Date Activated Date Inactivated Comments Full Code 09/27/2016 10:03 AM 09/27/2016 1:23 PM Full code in effect for 30 days Care Teams Special Education Coordinator Relationship Specialty Start Date End Date Lucero Fraire MD [address] [place] [address] PCP - General 12/03/15
--- OUTSIDE RECORDS SUMMARY | 2023-11-30 10:54 | XMS_ITS | Encounter Summary ---
Author Name Unknown Organization [facility] Address [address] [place] [address]. [place] [address] Care Team Providers Care Clerical Adjudicator Name Role Phone Carmita German MD Primary Care Provider [phone] Lucero Fraire MD Primary Care Provider [phone] Encounter Details Date Type Department Care Team (Late st Contact Info) Description 11/06/2010 Office Visit-[facility] [address] [place] [address] Timothy Mcgraw MD [address] [place], [place] [address] Social History Tobacco Use Types Packs/Day Years Used Date Smoking Tobacco: Never Assessed Sex and Gender Information Value Date Recorded Sex Assigned at Not on file Gender Identity Not on file Sexual Orientation Not on file documented as of this encounter Progress Notes * Timothy Mcgraw MD - 11/25/2010 4:47 PM CST Progress Note Created by: Timothy Mcgraw M.D. [id number] DATE: 11/06/2010 SHASHANK HASTINGS DATE OF : 1960 AGE: [age] years old Referring Physician: CARMITA GERMAN Referring Clinic: [facility] CURRENT DIAGNOSES 1. - Abnormal EKG, 794.31 ALLERGIES NKDA MEDICATIONS (prior to changes made today) 1. Aspirin 81 mg Tablet, 1 p.o. daily 2. Simvastatin 80 mg Tablet, 1 p.o. daily 3. Nexium 40 mg Capsule, Delayed Release(E.C.), 1 p.o. daily 4. Lunesta 2 mg Tablet, 1 p.o. PRN as Directed 5. Nasonex 50 mcg/Actuation [place], Non-Aerosol, 1 p.o. PRN as Directed 6. Melatonin 3 mg Tablet Sustained Release, 1 p.o. PRN as Directed 7. Hydrocodone-Acetaminophen 7.5-750 mg Tablet, 1 p.o. PRN as Directed CHIEF COMPLAINTS Abnormal EKG strip during polysomnography HISTORY OF PRESENT ILLNESS Thank you for referring Mr. Hastings. This is a very nice 50-year-old gentleman with sleep apneawho was noted to have an abnormal EKG tracing during recent polysomnography. The patient brought a rhythm strip, which shows some ectopic beats and a possible T wave abnormality. This is a single lead tracing. The patient has a history of stroke in 2007. This affected his left side with some weakness but profound loss of sensation. He received thrombolysis at [facility]. I do not have complete records although I did review a transesophageal echocardiogram from that time which was normal. Mr. Hastings has had recovery of his strength but he still has residual sensory deficit on the left side.In addition he is not able to perceive [...] and quit in 2004; Diet - Fruits andvegetables, low red meat and turkey/chicken healthy diet; Lifestyle - and children; Exercise - exercises regularly and gym member; Occupation - [employer]; Residence - lives in [place] year round; Place of - [place]; REVIEW OF SYSTEMS GENERAL feels well, no [...] S4, Apical impulse not displaced, no murmurs, gallops or rubs detected. ABDOMEN abdomen soft, non-tender PERIPHERAL [...] PRN as Directed, #0 Nasonex 50 mcg/Actuation [place], Non-Aerosol, 1 p.o. PRN as Directed, #0 Nexium 40 mg Capsule, Delayed Release(E.C.), 1 p.o. daily, #0 Simvastatin 80 mg Tablet, 1 p.o. daily, #0 IMPRESSION/PLAN 1.Ectopic beats and nonspecific T wave abnormalities during recent polysomnography. I have reviewedone lead strip from the polysomnography and I do not find this concerning, especially given the absence of any other symptoms. The patient has a normal physical examination and electrocardiogram. Because of his risk factors for atherosclerosis, I have asked him to undergo a screening stress test. Iwill forward a copy of this test for your review. Given his history of stroke, it is reasonable for the patient to continue on aspirin and lipid-lowering therapy indefinitely. It was a pleasure evaluating Mr. Hastings. Please feel free to contact me at any time should youhave any additional questions. TODAYS ORDERS 1. Blaine Treadmill 2 weeks Timothy Mcgraw M.D. cc:Flores Jackson M.D. documented in this encounter Plan of Treatment Not on file documented as of this encounter Visit Diagnoses Not on filedocumented in this encounter Care Teams Clerical Adjudicator Relationship Specialty Start Date End Date Carmita German MD [address] [place] [phone] PCP - General Family Practice 10/21/11 12/21/16 Lucero Fraire MD [facility] [address] [place] [address] PCP - General 10/20/17 documented as of this encounter
--- OUTSIDE RECORDS SUMMARY | 2023-11-30 10:54 | XMS_ITS | Clinical Summary ---
Author Name Unknown Organization [place] Address [facility] [place] [address] Care Team Providers Care Stone Finisher Name Role Phone Lucero Fraire MD Primary Care Provider [phone] Allergies No known active allergies Medications Medication Sig Dispensed Refills Start Date End Date Status HYDROcodone-acetamin ophen 5-325 MG per tablet Take 1-2 tablets by mouth every 4 hours as needed for pain. 15 tablet 0 10/06/2012 Active ibuprofen (ADVIL,MOTRIN) 800 MG tablet Take 1 tablet (800 mg) by mouth every 8 hours as needed for moderate pain 20 tablet 0 04/15/2015 Active SIMVASTATIN PO 0 Active aspirin 81 MG tablet Take by mouth daily 0 Active pantoprazole (PROTONIX) 40 MG EC tablet Take 40 mg by mouth daily 0 Active sucralfate (CARAFATE) 1 GM tablet Take 1 tablet (1 g) by mouth 4 times daily 30 tablet 0 01/18/2020 Active Social History Tobacco Use Types Packs/Day Years Used Date Smoking Tobacco: Never Smokeless Tobacco: Never Alcohol Use Standard Drinks/Week Comments No 0 (1 standard drink = 0.6 oz pur e alcohol) Adolescent Education Answer Date Record ed Getting School Help Needed Not on file 08/21 Sex and Gender Information Value Date Recorded Sex Assigned at Not on file Gender Identity Not on file Sexual Orientation Not on file Last Filed Vital Signs Vital Sign Reading Time Taken Comments Blood Pressure 139/94 08/01/2020 6:32 PM CDT Pulse 70 08/01/2020 6:32 PM CDT Temperature 36.8 ??C (98.3 ??F) 08/01/2020 6:32 PM CD T Respiratory Rate 18 08/01/2020 6:32 PM CDT Oxygen Saturation 98% 08/01/2020 6:32 PM CDT Inhaled Oxygen Concentration - - Weight 103.6 kg (228 lb 6.3 oz) 08/01/2020 6:32 PM CDT Height 172.7 cm (5' 8) 04/15/2015 12:2 3 AM CDT Body Mass Index 34.73 04/15/2015 12:23 AM CDT Plan of Treatment Health Maintenance Due Date Last Done Comments ADVANCE CARE PLANNING 1960 ANNUAL REVIEW OF HM ORDERS 1960 CT COLONOGRAPHY 1960 FIT 1960 FLEX SIG 1960 sDNA (Cologuard) 1960 HIV SCREENING 1973 HEPATITIS C SCREENING 1976 LIPID 12/06/2012 12/06/2007 COLONOSCOPY 01/13/2016 01/13/2006 COLORECTAL CANCER SCREENING 01/13/2016 RSV VACCINE ( & 60+) (1 - 1-dose 60+ series) 2018 ZOSTER IMMUNIZATION (2 of 2) 09/14/2019 07/20/2019 COVID-19 Vaccine (2 - season) 2023 02/13/2021 INFLUENZA VACCINE (#1) 2023 , 07/25/2021, 07/29/2020, Additional history exists FALL RISK ASSESSMENT 2023 MEDICARE ANNUAL WELLNESS VISIT 2023 PHQ-2 (once per calendar year) 2023 Pneumococcal Vaccine: 65+ Years (3 of 3 - PPSV23 or PCV20) 04/13/2024 04/13/2019, 02/16/1994 DTAP/TDAP/TD IMMUNIZATION (4 - Td or Tdap) 04/02/2032 04/02/2022, 10/08/2014, 08/24/2012 AORTIC ANEURYSM SCREENING (SYSTEM ASSIGNED) Completed 01/18/2020 HPV IMMUNIZATION Aged Out No longer e ligible based on patient's age to complete this topic IPV IMMUNIZATION Aged Out No longer e ligible based on patient's age to complete this topic MENINGITIS IMMUNIZATION Aged Out No l onger eligible based on patient's age to complete this topic RSV MONOCLONAL ANTIBODY Aged Out No l onger eligible based on patient's age to complete this topic Care Teams Stone Finisher Relationship Specialty Start Date End Date Lucero Fraire MD [facility] [address] [place], [place] [phone] PCP - General 10/20/17
--- OUTSIDE RECORDS SUMMARY | 2023-11-30 10:54 | XMS_ITS | Clinical Summary ---
Author Name Unknown Organization [facility] Address [place], [place] [address] Care Team Providers Care Rpg Developer Name Role Phone None Primary Care Provider Unavailabl e Allergies No known active allergies Medications Medication Sig Dispensed Refills Start Date End Date Status aspirin-calcium carbonate 81 mg-300 mg calcium(777 mg) tab Take by mouth. 0 A ctive simvastatin (ZOCOR) 5 mg tablet Take by mouth. 0 Active acetaminophen (TYLENOL EXTRA STRGTH) 500 mg tablet Take 500 mg by mouth every 4 hours. 0 08/08/2017 Active Active Problems Problem Noted Date Diagnosed Date s/p left knee tib/fib arthro desis DOS: 09/27/[address] Kameron Morales 02/27/2018 Left knee pain 02/27/2018 s/p left knee hardware removal 08/08/[address] Kameron Morales 02/27/2018 Numbness and tingling of left lower extremity Social History Tobacco Use Types Packs/Day Years Used Date Smoking Tobacco: Never Assessed Sex and Gender Information Value Date Recorded Sex Assigned at Not on file Gender Identity Not on file Sexual Orientation Not on file Obstetrics History Plan of Treatment Health Maintenance Due Date Last Done Comments COVID-19 vaccine series (#1) 03/22/1959 Tdap 1969 Depression screening for age 12+ 1970 HIV for age 15-65 1973 BMI (ht and wt on same day) for age 18+ 1976 Hepatitis C screening for age 18-79 1976 Tetanus booster 1978 Colonoscopy through age 75 2003 Lipids for age 45-75 2003 Zoster (shingles) series for age 50+ (1 of 2) 09/22/20 08 Influenza for age 65+ 2023 Pneumococcal series for age 65+ (1 of 1 - PCV) 023 Care Teams Rpg Developer Relationship Specialty Start Date End Date None . PCP - General 02/09/18
--- OUTSIDE RECORDS SUMMARY | 2023-11-30 10:54 | XMS_ITS | Referral Summary ---
Author Name Unknown Organization [facility] Address [facility] [place] [address] Care Team Providers Care Auto Body Repairer Fiberglass Name Role Phone Lucero Fraire MD Primary [...] 04/15/2015 12:23 AM CDT Plan of Treatment Not on file Care Teams Auto Body Repairer Fiberglass Relationship Specialty Start Date End Date Lucero Fraire MD [facility] [address] [place], [place] [phone] PCP - General 10/20/17
--- OUTSIDE RECORDS SUMMARY | 2023-11-30 10:54 | XMS_ITS | Continuity of Care Document ---
Author Name Unknown Organization [facility] Address [address] [place] [address] Phone Care Team Providers Care Vocational Counselor Name Role Phone Vitaly Bah MD Unavailable [...] and evening meals 500 MG - Active aspirin 81 mg tablet,delayed release take 1 tablet by oral route every day 81 MG - Active pantoprazole 40 mg tablet,delayed release take 1 tablet by oral route every day 40 MG - Active Procedures Procedure Date DRAIN/INJECT, JOINT/BURSA NEEDLE LOCALIZATION BY Flouroscopy OFFICE/OUTPATIENT VISIT, EST OFFICE/OUTPATIENT VISIT, EST N BLOCK, OTHER PERIPHERAL BILATERAL OFFICE/OUTPATIENT VISIT, EST Disabilty Reports Forms [facility] OFFICE/OUTPATIENT VISIT, EST Nerve Block Other Peripheral LEFT Ultrasound Guidance [employer] - [employer] Tax [facility] OFFICE/OUTPATIENT VISIT, EST [facility] OFFICE CONSULTATION Advance Directives Directive Yes / No Effective Date File Name No Information Encounters Encounter Description Practice Location Reason(s) For Visit Diagnoses Date Provider Providers Copied on Encounter [facility], [address] [place] [address], [id number] , [place] tel:[phone] [facility] Pain in left hipPain in right hip Sep- 3 Niurka Haider. [address] [place] [address], [id number] , [place]. tel:[phone] Referring Provider: Vitaly Cruz, [address] [place] [address], [id number]. tel:[phone] OFFICE/OUTPAT IENT VISIT, [facility], [address] [place] [address], [id number] , [place] tel:[phone] [facility] Widespread pain (chief complaint) Chronic pain syndromePain in right hipPain in left hipOther spondylosis with radiculopathy, lumbar regionOther spondylosis, cervical regionOccipita l neuralgiaOther intermediate manager (current) drug therapy Sep-1 3 Laure Davisse. [address], [place], [place], [id number] , [place]. tel:[phone] Solution Sales Senior Executive: Tonya Stern, [facility] [address], [place], [address]. tel:[phone] Workers Compensation. Referring Provider: Vitaly Cruz, [address] [place] [address], [id number]. tel:[phone] OFFICE/OUTPAT IENT VISIT, [facility], [address] [place] [address], [id number] , [place] tel:[phone] [facility] Widespread pain (chief complaint) Chronic pain syndromeOther spondylosis with radiculopathy, lumbar regionOccipita l neuralgiaOther spondylosis, cervical regionPain in right hipPain in left hipOther m[facility]p (current) drug therapy 3 Laure Sherice. [address] [facility] [address], [place], [id number] , [place]. tel:[phone] Solution Sales Senior Executive: Tonya Stern, [employer] [address], [place], [address]. tel:[phone] Workers Compensation. Referring Provider: Vitaly Cruz, [address] [place] [address], [id number]. tel:[phone] [facility], [address] [place] [address], [id number] , [place] tel:[phone] [facility] No Information 3 Laure Sherice. [address] [facility] [address], [place], [id number] , [place]. tel:[phone] [facility], [address] [place] [address], [id number] , [place] tel:[phone] [facility] Occipital neuralgia 3 Niurka Haider. [address] [place] [address], [id number] , [place]. tel:[phone] Referring Provider: Vitaly Cruz, [address] [place] [address], [id number]. tel:[phone] OFFICE/OUTPAT IENT VISIT, EST [facility], [address] [place] [address], [id number] , [place] tel:[phone] [facility] Widespread pain (chief complaint) Chronic pain syndromeOccipi tre neuralgiaPain in left footPain in right footCervicalgi aOther spondylosis with radiculopathy, lumbar region Jan- 3 Laure Sherice. [address] [facility] [address], [place], [id number] , [place]. tel:[phone] [employer] Senior Executive: Tonya Stern, [facility] [address], [place], [address]. tel:[phone] Workers Compensation. Referring Provider: Vitaly Cruz, [address] [place] [address], [id number]. tel:[phone] [facility], [address] [place] [address], [id number] , [place] tel:[phone] [facility] [place] No Information Oj-0 8-201 8 Pepe Deynaira . [address] [place] [address], [id number] , [place]. tel:[phone] Referring Provider: Vitaly Cruz, [address] [place] [address], [id number]. tel:[phone] OFFICE/OUTPAT IENT VISIT, [facility], [address] [place] [address], [id number] , [place] tel:[phone] [facility] [place] Leg Pain (chief complaint) Pain in left kneeOther chronic postprocedural painPain in left leg March-2 3201 8 Pepe Mcmillan . [address] [place] [address], [id number] , [place]. [phone] Solution [employer] Senior Executive: Tonya Stern, [facility] [address], [place], [address]. tel:[phone] Workers Compensation. Referring Provider: Vitaly Cruz, [address] [place] [address], [id number]. tel:[phone] [facility], [address] [place] [address], [id number] , [place] tel:[phone] [facility] Pain in left leg March-1 0-201 8 Kate Suresh. [address] [place] [address], [id number] , [place]. tel:[phone] OFFICE/OUTPAT IENT VISIT, [facility], [address] [place] [address], [id number] , [place] tel:[phone] [facility] [place] Leg Pain (chief complaint) Other chronic postprocedural painPain in left kneePain in left leg 8 Pepe Mcmillan . [address] [place], [id number] , [place]. [phone] Solution Sales Senior Executive: Tonya Stern, [facility] [address], [place], [address]. tel:[phone] Workers Compensation. OFFICE CONSULTATION [facility], [address] [facility] [place], [id number] , [place] tel:[phone] [facility] [place] Leg Pain (chief complaint) Pain in left legPain in left kneeOther chronic postprocedural pain 8 Pepe Mcmillan . [address] [place], [id number] , [place]. [phone] Solution [employer] Senior Executive: Tonya Stern, [facility] [address], [place], [address]. tel:[phone] Workers Compensation. [facility], [address] [place], [id number] , [place] tel:[phone] [facility] [place] No Information 8 Kulwinder Haider. [address] [facility] [place], [id number] , [place]. tel:[phone] Family History Family Member Type Diagnosis Age At Onset No Information Payers Payer name Insurance type Covered libertarian ID Nas araiza(s) Medicare MB [id number] [facility] [id number] Social History Type Description Quantity Date Captured Comments Sex Male Smoking Status No Information Chief Complaint And Reason For Visit No Information Reason For Referral Reason For Referral No Information Plan Of Treatment Date Type Action Status Goal Height. Due on d ue Goal Weight. Due on d ue Goal Unhealthy drug use screening . Due on due Goal FIT-DNA. Due on due Goal Medication Reconciliation. D ue on due Goal Tobacco Use. Due on 023 due Goal Update Social History. Due o n due Goal Review Allergy List. Due on due Goal Hepatitis C screening. Due o n due Goal PHQ-9. Due on du e Goal CT-Colonography. Due on due Goal Zoster vaccine (1st). Due on due Goal FIT. Due on due Goal Lipid panel. Due on due Goal PHQ-9. Due on du e Goal Medication Reconciliation. D ue on due Goal FIT-DNA. Due on due Goal Weight. Due on d ue Goal Tobacco Use. Due on due Goal Height. Due on d ue Goal CT-Colonography. Due on due Goal FIT. Due on due Goal Zoster vaccine (1st). Due on due Goal Review Allergy List. Due on due Goal Hepatitis C screening. Due o n due Goal Lipid panel. Due on 023 due Goal Update Social History. Due o n due Goal Unhealthy drug use screening . Due on due Goal Weight. Due on d ue Goal [...] Widespread pain Severity level i s 6. Duration: chronic. The client describes it as achy. Symptom is aggravated by bending, walking upstairs, walking downstairs, walking, Prolonged positioning and rising from sitting. Relieving factors include sitting. Pertinent negatives include diarrhea, fatigue, fever and incontinence (urinary). Comments: Shashank is a 62 y/o male who presents for follow up after initial consultation and pain management in the setting of chronic widespread pain, most prominent in the neck, mid-low back, and BL feet. Complains of ongoing R sided low back pain with radiation into the BL hips. Pain has been worse this month.BL Lesser Occipital Nerve Block on 02/15/[address] Bah provided 70% pain relief for 5 months. He states he experienced almost pain-free relief for a few months. Of note, patient had an Inspire surgery. Notes it has been going well for him. No other concerns today. Widespread pain Severity level i s 6. Duration: chronic. The client describes it as sharp and achy. It occurs persistently. The problem is worsening. Symptom is aggravated by bending, walking, lifting, movement and twisting. Relieving factors include changing positions and bending forward. Pertinent negatives include diarrhea, fatigue, fever and incontinence (urinary). Comments: Shashank is a 62 y/o male who presents for follow up after initial consultation and pain management in the setting of chronic widespread pain, most prominent in the neck, mid-low back, and BL feet. He was last seen on 02/08/23. Pain has been worse this month.S/p BL Lesser Occipital Nerve Block on 02/15/[address] Bah provided 70% pain relief for 5 months. He states he experienced almost pain-free relief for a few months. Notes the pain has since returned and is causing additional pain in the neck and low back.Complains of ongoing R sided low back pain with radiation into the BL hips. Willing to consider obtaining procedural treatments for the low back and hips depending on the results of the imaging. Of note, patient had an Inspire surgery. Notes it has been going well for him and there is no noticeable bulge from the implant. No other concerns today. Widespread pain Severity level i s 6. [...] patient was previously seen in clinic by [facility], but not since March 2018. [...] that he recently completed lumbar imaging at [facility], available for review.Currently attends PT at [facility], and is managed on Lyrica 25mg TID and Denver 5-325mg.Shashank is interested in pain management through [...] L calf. PT was previously completed at [facility] in February; on hold pedning results from peroneal block. Did see some improvement in his pain with quadriceps massage from PT previously. He is accompanied by his . [facility] is also present during today's OV. Leg Pain (comments) Shashank is he re for follow up. He c/o sleepiness with the gabapentin 1200mg/day but is trying to work through it. Met with an Dr Flor (ortho) in [place] for an evaluation and surgery was not recommended for him; per [facility], pt's quadriceps is not firing so physical therapy, perineal nerve block, and medication management was recommended to return to regular gait. Went to physical therapy ([facility]) yesterday and received massage, which initially was painful but provided some relief. Voltaren gel provided pain relief and requested a refill. Denies trying muscle relaxants. On Denver for unrelated issue, and does not find [...] (comments) Carlo is refer red by Dr. Morlaes for initial consult of left leg pain. Pain began 08/15/2015 while pushing a table at work. He reports hearing a pop and felt immediate pain of his left knee. Was found to have inflamed tibia/fibula. Was sent to Dr. Morales by [facility] for a tib/fib fusion, completed 09/2016. 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
--- OUTSIDE RECORDS SUMMARY | 2023-11-30 10:54 | XMS_ITS | Continuity of Care Document ---
Author Name Unknown Organization [facility] Address [address] [place] [address] Phone Care Team Providers Care Television Engineering Teacher Name Role Phone Unavailable Unavailable Unavailable Allergies, [...] - Active Procedures Procedure Date Office/Outpatient Visit,New, [facility] 2020 Results Test Name Date and Time Measure Units Reference Range Abnormal Flag Status Comments Panel Description: Transfora judd Ekvombq-Queovm-Mydkljkqdkosyw (TRANSLUMNONPART) Unknown TRANSLUMNONPART 17:15:59 (See Attached Document) Unknown (See Attached Document) Panel Description: Transfora judd Ayvnbvs-Rczdht-Moxidaagvmqjtq (TRANSLUMNONPART) Unknown Image Transforaminal Wlojjry-Segbyv-O onparti Advance Directives Directive Yes / No Effective Date File Name No Information Encounters Encounter Description Practice Location Reason(s) For Visit Diagnoses Date Provider Providers Copied on Encounter [facility], [address], [place], [place], [id number], [place] tel:[phone] [facility] [place] No Information No Information Office/Outpat ient Visit,New, [place] [facility], [address], [place], [id number], [place] tel:[phone] [facility] Radiculopath y, lumbar region No Information Family History Family Member Type Diagnosis Age At Onset No Information Payers Payer name Insurance type Covered libertarian ID Authoriza tion(s) Medicare [id number] For Life/Retired Bunny [id number] Social History Type Description Quantity Date Captured [...]
--- OUTSIDE RECORDS SUMMARY | 2023-11-30 10:54 | XMS_ITS | Encounter Summary ---
Author Name Unknown Organization [facility] Address [address], [place] [address] Care Team Providers Care Electron Beam Welder Name Role Phone Lucero Fraire MD Primary Care Provider [phone] Encounter Details Date Type Department Care Team Description 07/08/2016 Orders Only [facility] [address] [place] [address] Kameron Morales MD [address] [place] [address] Post-traumatic osteoarthritis of left knee Social History Tobacco Use Types Packs/Day Years Used Date Smoking Tobacco: Never Assessed Sex and Gender Information Value Date Recorded Sex Assigned at Not on file Gender Identity Not on file Sexual Orientation Not on file documented as of this encounter Plan of Treatment Not on file documented as of this encounter Visit Diagnoses Diagnosis Post-traumatic osteoarthritis of left knee Secondary localized osteoarthrosis, lower leg documented in this encounter Care Teams Electron Beam Welder Relationship Specialty Start Date End Date Lucero Fraire MD [address] [place] [address] PCP - General 12/03/15 documented as of this encounter
== END 2023-11-30 10:38 | disposition home or self-care (01) ==
PROVIDERS: PCP Physician Assistant Medical; Visit Provider Physician Assistant Medical
DX: R79.89 Other specified abnormal findings of blood chemistry (principal); E11.9 Type 2 diabetes mellitus without complications; M06.9 Rheumatoid arthritis, unspecified
CPT/HCPCS: 84165

== ENCOUNTER 2023-12-06 14:58 | Outpatient (CLI) | payer MEDICARE, OTHER, SELFPAY ==
--- NOTE | 2023-12-06 15:00 | CRLHL7_ITS ---
For Patients: As a result of the Cures Act, medical imaging exams and procedure reports are released immediately into your electronic medical record. You may view this report before your referring provider. If you have questions, please contact your health care provider. Examination: US abdominal aorta Indication: Abdominal aortic aneurysm screening. Technique: George scale and color Doppler images of the aorta and common iliac arteries are obtained. Comparison: None available Findings: Proximal aorta: 1.4 x 1.7 cm Mid aorta: 1.7 x 1.8 cm Distal aorta: 1.4 x 1.2 cm Right common iliac artery: 0.8 x 1.1 cm Left common iliac artery: 0.9 x 1.1 cm Recommended imaging interval for ectatic aorta: 2.5-2.9 cm: 5 years 3.0-3.4 cm: 3 years 3.5-3.9 cm: 2 years 4.0-4.4 cm: 1 year 4.5-4.9 cm: 6 months Impression: No abdominal aortic aneurysm. Dictated by Shashank Schaeffer MD @ 12/07/2023 12:51:10 PM (Electronically Signed)
== END 2023-12-06 14:59 | disposition home or self-care (01) ==
LOC: US 15:05
PROVIDERS: PCP Physician Assistant Medical; Visit Provider Physician Assistant Medical
DX: Z87.891 Personal history of nicotine dependence (principal); Z12.2 Encounter for screening for malignant neoplasm of respiratory organs
CPT/HCPCS: 76706

== ENCOUNTER 2024-02-01 10:00 | Outpatient (CLI) | payer MEDICARE, OTHER, SELFPAY | END 2024-02-01 10:01 | disposition home or self-care (01) | LOC: LKVREF 10:00 | PROVIDERS: PCP Physician Assistant Medical; Visit Provider Physician Assistant Medical | DX: R79.89 Other specified abnormal findings of blood chemistry (principal) | CPT/HCPCS: 84403 ==

== ENCOUNTER 2024-02-16 09:37 | Outpatient (CLI) | payer MEDICARE, OTHER, SELFPAY | END 2024-02-16 09:38 | disposition home or self-care (01) | LOC: NFLDREF 02-18 05:37 | PROVIDERS: PCP Physician Assistant Medical; Referring Provider Physician Assistant Medical; Visit Provider Physician Assistant Medical | DX: R79.89 Other specified abnormal findings of blood chemistry (principal) | CPT/HCPCS: 83001; 83002; 84146; 84403 ==

== ENCOUNTER 2024-04-01 20:38 | Emergency (ER) | payer MEDICARE, OTHER, SELFPAY ==
[2024-04-01 20:41] VITALS: BP 121/86; PULSE 106; RESP 16; TEMP 36.4; O2SAT 96; BMI 33.5
--- NOTE | 2024-04-01 20:54 | ED_ITS ---
HPI - Headache General Time Seen by Provider: 20:54 Date Seen: 04/01/24 Chief Complaint: Headache/Migraine Stated Complaint: numb right side of head, had stroke Time Seen by Provider: 04/01/24 20:49 Source: patient, RN notes reviewed and old records reviewed Mode of arrival: ambulatory Limitations: no limitations History of Present Illness HPI Narrative: 63-year-old male who presents today with concern for numbness of the right side of his head going on this afternoon. He notes numbness of the right side of the no was going under the eye and then up to lateral temporal area, extending behind the ear, also of the jaw. Has noticed some fullness in the right ear as well. Denies chest pain, neck pain, head injury. Has a history of chronic headaches and has had a couple headaches this week but nothing currently. Notes little bit of blurry vision in the right eye. History of prior acute CVA with left-sided neurologic deficits. Related Data Home Medications Medication Instructions Recorded Confirmed blood-glucose meter (Accu-Chek #1 ea 06/28/22 02/29/24 Guide Glucose Meter) aspirin 81 mg tablet,delayed 81 mg PO QDAY 07/07/22 02/29/24 release (Adult Low Dose Aspirin) cholecalciferol (vitamin D3) 125 5,000 unit PO DAILY 07/07/22 02/29/24 mcg (5,000 unit) tablet triamcinolone acetonide 0.5 % 1 applic topical BID 07/07/22 02/29/24 topical cream methocarbamol 750 mg tablet 750 mg PO 3XD PRN 06/07/23 02/29/24 Previous Rx's Medication Instructions Recorded clindamycin phosphate 1 % topical 1 applic topical QDAY #60 mL 09/23/22 solution lancets (Accu-Chek Softclix #100 ea 05/26/23 Lancets) metformin 500 mg tablet,extended 2,000 mg (4 x 500 mg) PO QDAY #360 06/20/23 release 24 hr tabs ezetimibe 10 mg tablet 10 mg PO QDAY #90 tabs 11/01/23 fluoxetine 20 mg capsule 20 - 40 mg (1 - 2 x 20 mg) PO 11/01/23 DAILY for depressive disorder #90 caps pantoprazole 40 mg tablet,delayed 40 mg PO QDAY #90 tabs 12/12/23 release meloxicam 7.5 mg tablet 7.5 mg PO BID #180 tabs 11/03/23 sucralfate 1 gram tablet (Carafate) 1 g PO Q4H PRN GERD #360 tabs 11/09/23 valacyclovir 1 gram tablet 1,000 mg PO .PRN 5 days #15 tabs 11/09/23 dulaglutide 1.5 mg/0.5 mL 1.5 mg (0.5 mL) subcut QWEEK #6 mL 11/10/23 subcutaneous pen injector (Trulicity) fluticasone propionate 50 1 spray intranasal BID #16 grams 11/10/23 mcg/actuation nasal spray,suspension rosuvastatin 40 mg tablet 40 mg PO QDAY #90 tabs 11/15/23 propranolol 60 mg capsule,24 60 mg PO QDAY #90 caps 11/16/23 hr,extended release blood sugar diagnostic (FreeStyle #100 ea 02/02/24 Lite Strips) bupropion HCl 150 mg 24 hr tablet, 150 mg PO QAM #90 tabs 02/23/24 extended release (Wellbutrin XL) tamsulosin 0.4 mg capsule (Flomax) 0.4 mg PO QHS #90 caps 02/23/24 dulaglutide 0.75 mg/0.5 mL 0.75 mg (0.5 mL) subcut QWEEK #6 mL 03/01/24 subcutaneous pen injector (Trulicity) pregabalin 50 mg capsule 50 mg PO TID #270 caps 03/01/24 cyclobenzaprine 10 mg tablet 10 mg PO .hs muscle spasm #30 tabs 03/23/24 Allergies Allergy/AdvReac Type Severity Reaction Status Date / Time No Known Drug Allergies Allergy Verified 02/29/24 11:59 Review of Systems Status of ROS: Reports: 10 or more systems reviewed and unremarkable except as noted in History and below [facility] Medical History (Updated 04/01/24 @ 23:04 by Saturnino Bernstein MD) BPH loc w urin obs/LUTS ?N40.1 - Benign prostatic hyperplasia with lower urinary tract symptoms (ICD- 10) Tick bite of back ?S30.860A - Insect bite (nonvenomous) of lower back and pelvis, initial encounter (ICD-10) ?W57.XXXA - Bitten or stung by nonvenomous insect and other nonvenomous arthropods, initial encounter (ICD-10) Chronic headaches ?R51.9 - Headache, unspecified (ICD-10) ?G89.29 - Other chronic pain (ICD-10) Fatigue ?R53.83 - Other fatigue (ICD-10) Chronic pain of left lower extremity ?M79.605 - Pain in left leg (ICD-10) ?G89.29 - Other chronic pain (ICD-10) Depression ?F32.A - Depression, unspecified (ICD-10) Cat bite of finger ?S61.259A - Open bite of unspecified finger without damage to nail, initial encounter (ICD-10) ?W55.01XA - Bitten by cat, initial encounter (ICD-10) Right bundle branch block ?I45.10 - Unspecified right bundle-branch block (ICD-10) Obstructive sleep apnea syndrome (03/11/15) ?G47.33 - Obstructive sleep apnea (adult) (pediatric) (ICD-10) History of stroke ?Z86.73 - Personal history of transient ischemic attack (TIA), and cerebral infarction without residual deficits (ICD-10) GERD (gastroesophageal reflux disease) ?K21.9 - Gastro-esophageal reflux disease without esophagitis (ICD-10) COVID-19 ?U07.1 - COVID-19 (ICD-10) Surgical History History of splenectomy ?Z90.81 - Acquired absence of spleen (ICD-10) History of cholecystectomy ?Z90.49 - Acquired absence of other specified parts of digestive tract (ICD- 10) Family History (Updated 03/21/23 @ 21:05 by Shashank Reid MD) Other Stroke Social History (Updated 03/21/23 @ 21:05 by Shashank Reid MD) Narrative: Patient lives with his . Retired. Alcohol abuse- sobriety since 2007 Highest level of school completed/degree received: GED or equivalent Smoking Status: Former smoker What tobacco products do you use: cigarettes Smoking quit date/years: >15 years ago Do you use any of these nicotine containing products: None Nicotine containing products detail: Smoked cigarettes from [age]yrs Second hand tobacco smoke exposure: No How often do you have a drink containing alcohol: never How often do you have six or more drinks on one occasion: Never AUDIT-C Alcohol total score: 0 Non-prescribed substance use: denies use Caffeine: Yes (1-2 cups/day) Little interest or pleasure in doing things: several days Feeling down, depressed, or hopeless: several days service: No Exam Narrative: Exam Narrative: General: Well-developed and well-nourished, no acute distress Head: Atraumatic and normocephalic Eyes: Pupils are equal reactive, extraocular motions intact, conjunctiva clear ENT: External nose and ears are normal, posterior pharynx without erythema or exudate Neck: No midline cervical tenderness, full spontaneous range of motion the neck, trachea midline, no adenopathy Heart: Regular rate and rhythm no murmurs or thrills Lungs: Clear to auscultation bilaterally without wheezes or crackles Abdomen: Soft, nontender, nondistended with active bowel sounds Musculoskeletal: No tenderness, deformity, or edema Neurologic: Awake, alert, and oriented x3, no gross focal neurologic deficits, cranial nerves intact as tested, specifically no decreased sensation of the right upper, mid, lower face or scalp Psych: Mood and affect are appropriate Skin: No rashes Const: Vital Signs, click to edit/add: Vital Signs - 24 hr 04/01/24 20:41 04/01/24 22:37 04/01/24 22:38 Temperature 97.5 F L Pulse Rate 78 75 Pulse Rate [Right Pulse Oximeter] 106 H Respiratory Rate 16 Blood Pressure 128/83 Blood Pressure [Ri ght Upper Arm] 121/86 Pulse Oximetry 96 93 92 Oxygen Delivery Me thod Room Air 04/01/24 22:45 04/01/24 23:00 Temperature Pulse Rate 74 74 Pulse Rate [Right Pulse Oximeter] Respiratory Rate Blood Pressure Blood Pressure [Ri ght Upper Arm] Pulse Oximetry 91 92 Oxygen Delivery Me thod Course Course ED Course: Patient seen examined, prior records are reviewed. Patient with history of prior CVA with no residual symptoms as well as chronic pain and chronic migraine who presents today with headache, right when he describes as numbness on the side of his head, and blurry vision. On exam here, no focal neurologic deficits and vision is intact. Patient is vague about time of onset of symptoms, due to mild symptoms he is not a candidate for lytics and it sounds like timing is at least onset 8 hours prior to coming emergency department, NIH stroke scale is 0 and patient is not a candidate for thrombectomy, additionally symptoms are unlikely to represent large vessel occlusion. On exam here, patient indicates right lower face, right mandaeism area as areas of numbness, this does extend up into the parietal scalp a little bit as well but does not involve the ear. However, sensation is intact throughout. There is trace left lower facial droop which patient's spouse says have been present since prior stroke and seem worse when patient has fatigue. No other focal neurologic deficits. 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 However, given decreased sensation of the V2 and V3 dermatomes, intracranial pathology is also possible. CTA is ordered, patient has an implantable device (Inspire for sleep apnea) which is not MRI compatable. Reevaluation(s) Time of Reevaluation #1: 21:39 Reevaluation #1: Care discussed with Dr. Cordova, neurology who agrees that this likely repre sents early Ocasio's palsy, recommends back and steroids at this time. Time of Reevaluation #2: 22:41 Reevaluation #2: Labs ordered and independently interpreted by agree with normal at blood cell count but predominant lymphocytosis, basic panel is reassuring. EKG reassuring. Time of Reevaluation #3: 22:58 Reevaluation #3: CT scan of the head without contrast independently interpreted by me with encephalomalacia on the right consistent with prior acute CVA, no acute intracranial hemorrhage. Additional Reevaluation(s): 11:03 p.m. reviewed radiology report ports of CT angio of the neck and head chin are negative for acute large vessel occlusion. Discussed diagnosis and plan with patient's spouse. Stable for discharge. If symptoms worsen, return to the emergency department and consider prednisone at that time. Discussed likely progression of symptoms in next 24-72 hours Vital Signs Vital signs: Initial Vital Signs Temperature 97.5 F L 04/01/24 20:41 Temperature Source Temporal Artery Scan 04/01/24 20:41 Pulse Rate 106 H 04/01/24 20:41 Respiratory Rate 16 04/01/24 20:41 Blood Pressure 121/86 04/01/24 20:41 Blood Pressure Mean 97 04/01/24 20:41 Blood Pressure Position Sitting 04/01/24 20:41 Pulse Oximetry 96 04/01/24 20:41 Oxygen Delivery Method Room Air 04/01/24 20:41 Vital Signs Temperature 97.5 F L 04/01/24 20:41 Pulse Rate 106 H 04/01/24 20:41 Respiratory Rate 16 04/01/24 20:41 Blood Pressure 121/86 04/01/24 20:41 Pulse Oximetry 96 04/01/24 20:41 Oxygen Delivery Method Room Air 04/01/24 20:41 Temperature 97.5 F L 04/01/24 20:41 Pulse Rate 74 04/01/24 23:00 Respiratory Rate 16 04/01/24 20:41 Blood Pressure 128/83 04/01/24 22:37 Pulse Oximetry 92 04/01/24 23:00 Oxygen Delivery Method Room Air 04/01/24 20:41 Medications Administered Medications: Discontinued Medications Generic Name Dose Route Start Last Admin Trade Name Freq PRN Reason Stop Dose Admin Sodium Chloride 1,000 mls @ 1,000 mls/hr 04/01/24 21:15 04/01/24 22:25 0.9 % Sodium Chloride 1000 Ml IV 04/01/24 22:14 1,000 mls/hr .Q1H CHUCK Administration MDM - Headache Lab Data Labs: Lab Results 04/01/24 Range/Units 22:05 WBC 10.83 (4.50-11.00) K/uL RBC 5.37 (4.30-5.90) m/uL Hgb 15.8 (13.5-17.5) gm/dL Hct 47.1 (37.0-53.0) % MCV 88 (80-100) fL MCH 29 (26-34) pg MCHC 34 (32-36) gm/dL RDW Coeff of Toy 13.4 (11.5-15.5) % Plt Count 288 (140-440) K/uL Neut % (Auto) 39.8 L (42.0-72.0) % Lymph % (Auto) 45.3 H (20-44) % Bullock % (Auto) 12.3 H (0.0-11.0) % Eos % (Auto) 1.8 (0.0-7.0) % Baso % (Auto) 0.5 (0.0-3.0) % Neut # (Auto) 4.30 (1.7-7.0) K/uL Lymph # (Auto) 4.90 H (0.90-2.90) K/uL Bullock # (Auto) 1.30 H (0.00-0.90) K/UL Eos # (Auto) 0.19 (0.00-0.50) K/uL Baso # (Auto) 0.05 (0.00-0.30) K/uL Abs Immat Gran (auto) 0.03 (0.00-0.30) K/uL Imm/Tot Granulo (auto) 0.3 % Sodium 139 (135-149) mmol/L Potassium 3.8 (3.6-5.1) mmol/L Chloride 107 (96-114) mmol/L Carbon Dioxide 26 (20-32) mmol/L Anion Gap 6 L (7-15) mEq/L BUN 14 (7-30) mg/dL Creatinine 0.9 (0.5-1.5) mg/dL Estimated Creat Clear 71.25 Estimated GFR 95 ml/min Glucose 111 (60-115) mg/dL Calcium 9.1 (8.4-10.6) mg/dL ECG Data Attestation: I personally reviewed and interpreted this ECG as follows: ECG interpretation date: 04/01/24 ECG interpretation time: 22:32 Prior ECG tracings: not available for review Interpretation: Sinus rhythm with left axis deviation and right bundle-branch block, rate 78, WV 198, QTC 41, no acute ischemic changes. Discharge Plan Discharge Clinical Impression: Facial paresthesia Patient Disposition: Home, Self-Care Condition: Stable Instructions: Ocasio Palsy (ED), Paresthesia (ED) Additional Instructions: Follow-up with your primary care doctor in 2-3 days Activity Level: Activity as Tolerated Discharge Diet: Regular Prescriptions: No Action (DME) blood-glucose meter [Accu-Chek Guide Glucose Meter] Misc See Rx Instructions .ROUTE .MEDSUPPLY Qty: 1 Patient Comments: USE TO CHECK GLUCOSE ONCE DAILY Rx Instructions: As directed cholecalciferol (vitamin D3) 125 mcg (5,000 unit) tablet 5,000 unit PO DAILY aspirin [Adult Low Dose Aspirin] 81 mg tablet,delayed release (DR/EC) 81 mg PO QDAY triamcinolone acetonide 0.5 % cream 1 applic topical BID clindamycin phosphate 1 % solution 1 applic topical QDAY Qty: 60 1RF methocarbamol 750 mg tablet 750 mg PO 3XD PRN bupropion HCl [Wellbutrin XL] 150 mg tablet extended release 24 hr 150 mg PO QAM Qty: 90 0RF tamsulosin [Flomax] 0.4 mg capsule 0.4 mg PO QHS Qty: 90 1RF (DME) lancets [Accu-Chek Softclix Lancets] Misc See Rx Instructions .ROUTE .MEDSUPPLY Qty: 100 3RF Rx Instructions: Once daily and as needed for hypoglycemia events metformin 500 mg tablet extended release 24 hr 2,000 mg PO QDAY Qty: 360 3RF Rx Instructions: 4 tablets once daily for diabetes fluoxetine 20 mg capsule 20 - 40 mg PO DAILY Qty: 90 3RF pantoprazole 40 mg tablet,delayed release (DR/EC) 40 mg PO QDAY Qty: 90 3RF Patient Comments: TAKE 1 TABLET BY MOUTH DAILY Rx Instructions: for acid reflux ezetimibe 10 mg tablet 10 mg PO QDAY Qty: 90 3RF Rx Instructions: once daily for cholesterol meloxicam 7.5 mg tablet 7.5 mg PO BID Qty: 180 1RF Rx Instructions: 1 tablet twice daily for pain with food sucralfate [Carafate] 1 gram tablet 1 g PO Q4H PRN (Reason: GERD) Qty: 360 1RF Rx Instructions: Take 1 tablet every 4 hours as needed max use: 4 times per day for acid reflux valacyclovir 1 gram tablet 1,000 mg PO .PRN 5 Days Qty: 15 3RF Rx Instructions: one tablet once daily x 5 days as needed for cold sore outbreaks provided 3 episode supply Trulicity 1.5 mg/0.5 mL pen injector 1.5 mg subcut QWEEK Qty: 6 2RF Rx Instructions: once weekly fluticasone propionate 50 mcg/actuation spray,suspension 1 spray intranasal BID Qty: 16 2RF rosuvastatin 40 mg tablet 40 mg PO QDAY Qty: 90 1RF Rx Instructions: once daily for cholesterol propranolol 60 mg capsule,extended release 24 hr 60 mg PO QDAY Qty: 90 3RF Rx Instructions: once daily for headache prevention (DME) FreeStyle Lite Strips Strip See Rx Instructions .Route Qty: 100 3RF Rx Instructions: once daily pregabalin 50 mg capsule 50 mg PO TID Qty: 270 0RF Rx Instructions: 1 capsule 3 times daily Trulicity 0.75 mg/0.5 mL pen injector 0.75 mg subcut QWEEK Qty: 6 0RF Rx Instructions: reduce dosing while higher dose on back order Once weekly for diabetes cyclobenzaprine 10 mg tablet 10 mg PO .hs Qty: 30 2RF Follow Up/Referrals: Kassandra Marshall PA-C [Primary Care Provider] - Stand Alone Forms: [employer] Info Instructions
--- NOTE | 2024-04-01 21:13 | CT_ITS ---
Patient: RAÚL MTZ Facility:?[facility] Patient ID:?[id number] Site Patient ID:?[id number]. Site :?1960 Study:?CT-Neck Angio CTA NECK W/OPHELIA 370 95CC-04/01/2024 10:42:37 PM Ordering Physician:KISHORE Final Report: CT ANGIOGRAM NECK DATE: 04/01/2024 CLINICAL HISTORY: Patient with focal neurological deficits. TECHNIQUE: Standard helical CT image acquisition of the neck up to the skull base after bolus intravenous contrast enhancement. 2D and 3D MIP images for post-processing were performed and interpreted on an independent workstation and 3D images were permanently archived. COMPARISON: CT same day. FINDINGS: The origins of the great vessels from the aortic arch are patent. The origin of the right vertebral artery is patent. The origin of the left vertebral artery is patent. The common carotid arteries are patent. There is no stenosis at the origin of the right internal carotid artery. There is no stenosis at the origin of the left internal carotid artery. The rest of the cervical segments of the internal carotid arteries are patent up to the skull base. The left vertebral artery is dominant. The cervical segments of the vertebral arteries are patent up to the skull base. The visualized lung apices are unremarkable. The thyroid gland is unremarkable. The soft tissues of the neck are unremarkable. There are degenerative changes in the cervical spine. IMPRESSION: Normal CTA of the neck. Please note that all CT scans at this facility use dose modulation, iterative reconstruction, and/or weight-based dosing when appropriate to reduce radiation dose to as low as reasonably achievable. Dictated by: Beatriz Cobb MD @ 04/01/2024 22:59:11 Signed by:?Beatriz Cobb MD @04/01/2024 10:59:11 PM (Electronic Signature)
--- NOTE | 2024-04-01 21:13 | CT_ITS ---
Patient: RAÚL MTZ Facility:?[facility] Patient ID:?[id number] Site Patient ID:?[id number]. Site :?1960 Study:?CT-Head W/O-04/01/2024 10:39:14 PM Ordering Physician:KISHORE Final Report: CT HEAD DATE: 04/01/2024 CLINICAL HISTORY: Patient with focal neurological deficits. TECHNIQUE: Standard CT scanning of the head was performed. COMPARISON: None. FINDINGS: There is no intracranial hemorrhage. There is an old moderate infarction in the right posterior insular cortex extending to the frontal operculum. There are mild microangiopathic changes. There is diffuse parenchymal volume loss. There is no mass effect or midline shift. The calvarium is unremarkable. The orbits are unremarkable. The paranasal sinuses are unremarkable. The mastoid air cells are unremarkable. The soft tissues are unremarkable. IMPRESSION: 1. No intracranial hemorrhage. 2. Old moderate infarction in the right posterior insular cortex extending to the frontal operculum. 3. Mild microangiopathic changes and diffuse parenchymal volume loss. Please note that all CT scans at this facility use dose modulation, iterative reconstruction, and/or weight-based dosing when appropriate to reduce radiation dose to as low as reasonably achievable. Dictated by: Beatriz Cobb MD @ 04/01/2024 22:56:52 Signed by:?Beatriz Cobb MD @04/01/2024 10:56:52 PM (Electronic Signature)
--- NOTE | 2024-04-01 21:13 | CT_ITS ---
Patient: RAÚL MTZ Facility:?[facility] Patient ID:?[id number] Site Patient ID:?[id number]. Site :?[id number] Study:?CT-Head Angio CTA HEAD W/BRYANVUE 370 95CC-04/01/2024 10:41:00 PM Ordering Physician:KISHORE Final Report: CT ANGIOGRAM HEAD DATE: 04/01/2024 CLINICAL HISTORY: Patient with focal neurological deficits. TECHNIQUE: Standard helical CT image acquisition through the intracranial circulation following intravenous administration of contrast material with bolus tracking. 2D and 3D MIP images for post-processing were performed and interpreted on an independent workstation and 3D images were permanently archived. COMPARISON: CT same day. FINDINGS: There is no proximal intracranial large vessel occlusion. There is no intracranial aneurysm. The right internal carotid artery is normal. The right middle cerebral artery and its branches are normal. The right anterior cerebral artery and its branches are normal. The left internal carotid artery is normal. The left middle cerebral artery and its branches are normal. The left anterior cerebral artery and its branches are normal. The anterior communicating artery is well visualized and appears normal. The right vertebral artery and PICA are normal. The left vertebral artery and PICA are normal. The left vertebral artery is dominant. The basilar artery is patent and appears normal. The right posterior cerebral artery is normal. The left posterior cerebral artery is normal. The visualized venous structures are patent. IMPRESSION: Patent proximal intracranial vasculature. Please note that all CT scans at this facility use dose modulation, iterative reconstruction, and/or weight-based dosing when appropriate to reduce radiation dose to as low as reasonably achievable. Dictated by: Beatriz Cobb MD @ 04/01/2024 23:00:52 Signed by:?Beatriz Cobb MD @04/01/2024 11:00:52 PM (Electronic Signature)
--- OUTSIDE RECORDS SUMMARY | 2024-04-01 21:13 | XMS_ITS ---
Author Name Unknown Organization [facility] Address [address] [place] [address] Care Team Providers Care Director Critical Care Name Role Phone Unavailable Unavailable Unavailable Surgery Details Not on file Complications Check Surgery Details section. Procedure Estimated Blood Loss Check Surgery Details section. Procedure Findings Check Surgery Details section. Procedure Specimens Taken Check Surgery Details section.
--- OUTSIDE RECORDS SUMMARY | 2024-04-01 21:13 | XMS_ITS | Continuity of Care Document ---
Author Name Unknown Organization [facility] Address [address] [address] [place] [address] Phone Care Team Providers Care Human Services Instructor Name Role Phone Unavailable Unavailable Unavailable Allergies, Adverse Reactions, Alerts Substance Reaction Status Criticality No Known allergies Medications Medication Instructions Dosage Effective Dates (start - stop) Status Comments Lipitor 20 mg Tab Take 1 tablet by dash th daily - Active Nexium 40 mg Cap Take 1 tablet by adsh th daily - Active Procedures Procedure Date Offic Cons New/estab Mod-hi 60 07 Routine Serum Collection Advance Directives Directive Yes / No Effective Date File Name No Information Encounters Encounter Description Practice Location Reason(s) For Visit Diagnoses Date Provider Providers Copied on Encounter [facility], [address] [address], [place], [place], [id number], tel:[phone] [facility] No Information 1 7 No Information Offic Cons New/estab Mod-hi 60 [facility], [address] [address], [place], [place], [id number], tel:[phone] [facility] Pain[facility] PainLU[facility] Pain 0200 7 No [...] Crohn's Payers Payer name Insurance type Covered constitution party ID Authoriza tion(s) [employer] Of [facility] [id number] Social History Type Description Quantity Date Captured [...]
--- OUTSIDE RECORDS SUMMARY | 2024-04-01 21:13 | XMS_ITS | Encounter Summary ---
Author Name Unknown Organization [facility] Address [address] [place] [address]. [place] [address] Care Team Providers Care Inspector Timers Name Role Phone Carmita German MD Primary Care Provider Lucero Fraire MD Primary Care Provider [phone] Encounter Details Date Type Department Care Team (Late st Contact Info) Description 11/06/2010 Office Visit-[facility] [address] [place] [address] Timothy Mcgraw MD [address] [facility] [address] [place], [place] [address] Social History Tobacco Use Types Packs/Day Years Used Date Smoking Tobacco: Never Assessed Sex and Gender Information Value Date Recorded Sex Assigned at Not on file Gender Identity Not on file Sexual Orientation Not on file documented as of this encounter Progress Notes * Timothy Mcgraw MD - 11/25/2010 4:47 PM CST Progress Note Created by: Timothy Mcgraw M.D. [id number] DATE: 11/06/2010 SHASHANK HASTINGS DATE OF : 1960 AGE: [age] years old Referring Physician: CARMITA GERMAN Referring Clinic: [facility] CURRENT DIAGNOSES 1. - Abnormal EKG, 794.31 ALLERGIES NKDA MEDICATIONS (prior to changes made today) 1. Aspirin 81 mg Tablet, 1 p.o. daily 2. Simvastatin 80 mg Tablet, 1 p.o. daily 3. Nexium 40 mg Capsule, Delayed Release(E.C.), 1 p.o. daily 4. Lunesta 2 mg Tablet, 1 p.o. PRN as Directed 5. Nasonex 50 mcg/Actuation Bloomingrose, Non-Aerosol, 1 p.o. PRN as Directed 6. [...] loss of sensation. He received thrombolysis at [facility]. I do not have complete records although [...] exercises regularly and gym member; Occupation - [employer]; Residence - lives in [place] year round; Place of - [place]; REVIEW OF SYSTEMS GENERAL feels well, no [...] PRN as Directed, #0 Nasonex 50 mcg/Actuation Bloomingrose, Non-Aerosol, 1 p.o. PRN as Directed, #0 [...] on filedocumented in this encounter Care Teams Inspector Timers Relationship Specialty Start Date End Date Carmita German MD [address] [place] [phone] PCP - General Family Practice 10/21/11 12/21/16 Lucero Fraire MD [facility] [address] [place] [address] PCP - General 10/20/17 documented as of this encounter
--- OUTSIDE RECORDS SUMMARY | 2024-04-01 21:13 | XMS_ITS | Clinical Summary ---
Author Name Unknown Organization [facility] Address [address] [place] [address] Care Team Providers Care Sales Recruitment Specialist Name Role Phone None Reported, Pcp Primary Care Provider Unavail able Source Comments Patient records contain information from all sites at [facility]. For routine questions regarding patient records, call [phone] during business hours, M-F 8:00 AM - 5:00 PM Central Time. Record requests for emergency care only can be directed to [phone] at any time.[facility] Allergies No known active allergies Medications Medication Sig Dispensed Refills Start Date End Date Status metFORMIN (GLUCOPHAGE) 500 mg tablet Take 500 mg by mouth every 4 (four) hours. Active pregabalin (LYRICA) 100 mg capsule Take 25 mg by mouth 2 (two) times a day. 25mg 3 in the am and 3 in the pm Active FLUoxetine (PROzac) 20 mg capsule Take 20 mg by mouth daily. Active ezetimibe-atorvast atin 10-10 mg tablet Take by mouth daily. Acti ve pantoprazole (PROTONIX) 40 mg EC tablet Take 40 mg by mouth daily. Active fluticasone propionate (FLONASE) 50 mcg/actuation nasal spray Administer 2 sprays into each nostril daily. Active meloxicam (MOBIC) 15 mg tablet Take 1 tablet by mouth daily. 7.5mg 10/11/[address] Active aspirin [address] tablet Take by mouth daily. 10/11/2008 Acti ve rosuvastatin 40 mg capsule, sprinkle Take by mouth. Act elijah propranoloL (INDERAL LA) 60 mg 24 hr capsule Take 60 mg by mouth daily. Active Trulicity 1.5 mg/0.5 mL pen injector injection Inject 0.5 mL (1.5 mg) subcutaneously every week; new dosing once weekly* 10/05/2023 Active Accu-Chek Guide test strips USE TO TEST DAILY* 08/26/2023 Activ e valACYclovir (VALTREX) 1000 mg tablet take 1 tablet by mouth once daily for 5 days as needed for cold sores* 10/19/2023 Active Active Problems Problem Noted Date Diagnosed Date Diabetes Mellitus Type 2 Without Complication Stroke/Transient Ischemic Attack NOS 06/20/2023 Apnea Sleep Obstructive 06/08/2023 Encounters Date Type Department Care Team Description 01/11/2024 10:01 AM MEDICAL LABORATORY TECHNOLOGIST - 01/14/2024 11:59 PM [facility] Hospital [facility]counter [facility] in [address] [address] Cody Gutiérrez M.D. Apnea Sleep Obstructive Discharge Disposition: Home or Self Care 01/11/2024 9:30 AM [facility] Office Visit [facility] in [address] [address] Cody Gutiérrez M.D. Apnea Sleep Obstructive (Primary Dx) 01/10/2024 6:10 PM MEDICAL LABORATORY TECHNOLOGIST - 01/13/2024 11:59 PM [facility] Hospital En[facility] [address] [address] Cody Gutiérrez M.D. Apnea Sleep Obstructive Discharge Disposition: Home or Self Care 01/10/2024 4:00 PM MEDICAL LABORATORY TECHNOLOGIST Office Visit [facility] in [address] [address] Cody Gutiérrez M.D. Apnea Sleep Obstructive (Primary Dx) from Last 3 Months Social History Tobacco [...] How often do you attend chur or mormonism services? 1 to 4 times per year 04/04/2023 Do you belong to any clubs o r organizations such as baptism groups, unions, fraternal or athletic groups, or [...] and heating? Not hard at all 04/04/2023 [facility] of Occupat ional Health - Occupational Stress [...] place to sleep or slept in a care home (including now)? No 04/04/2023 Nutrition Answer [...] Sign Reading Time Taken Comments Blood Pressure 107/69 01/10/2024 3:47 PM MEDICAL LABORATORY TECHNOLOGIST Pulse 75 01/10/2024 3:47 PM MEDICAL LABORATORY TECHNOLOGIST Temperature 36.6 ??C (97.9 ??F) 06/20/2023 12:50 PM C DT Respiratory Rate 16 06/20/2023 1:15 PM CDT Oxygen Saturation 93% 06/20/2023 1:15 PM CDT Inhaled Oxygen Concentration - - Weight 100 kg (221 lb 3.7 oz) 01/10/2024 3:47 PM MEDICAL LABORATORY TECHNOLOGIST Height 175.6 cm (5' 9.13) 01/10/2024 3:47 PM CS T Body Mass Index 32.54 01/10/2024 3:47 PM MEDICAL LABORATORY TECHNOLOGIST Plan of Treatment Upcoming Encounters Date Type Department Care Team (Late st Contact Info) Description 04/09/2024 9:00 AM CDT Office Visit [facility] in [place], [place] [address] [place] [address] Cody Gutiérrez M.D. [address] [place] [address] Health Maintenance Due Date Last Done Comments [...] for Blood Press ure Check / Re-check 01/10/2025 01/10/2024 DTaP,Tdap,and Td Vaccines (4 - Td or Tdap) 04/02/2032 04/02/2022, 10/08/2014, 08/24/2012 Abdominal Aortic Aneurysm (A AA) Screen Completed 01/18/2020 Influenza Vaccine Completed 09/27/2023, , 07/25/2021, Additional history exists Medical Devices Implanted Type Area Gta Device Identifier Shelf Expiration Date Model / Serial / Lot Lead Cuff Stimulation - [id number] - [id number] Implanted:Qty: 1 on 06/20/2023 by Nitin Gutiérrez M.D., M.S. at [facility] Responsive Neurostimulator Sys Right: Neck [employer] 03/21/2026 4063-45 CM / [id number] / Lead Cotton Acreage Measurer Ap Thor Rsp Sns - [id number] - [id number] Implanted:Qty: 1 on 06/20/2023 by Nitin Gutiérrez M.D., M.S. at [facility] Responsive Neurostimulator Sys Right: Chest [employer] 04/11/2026 4340 / [id number] / Gen Nrstm Sleep Apnea Thor - [id number] - [id number] Implanted:Qty: 1 on 06/20/2023 by Nitin Gutiérrez M.D., M.S. at [facility] Spinal Cord Stimulator Right: Chest [employer] 04/12/2026 3028 / [id number] / Procedures Procedure Name Priority Date/Time Associated Diagnosis Comments POLYSOMNOGRAPHY Routine 01/10/2024 11:22 PM MEDICAL LABORATORY TECHNOLOGIST Apnea Sleep Obstructive EXTI BASIC METABOLIC PANEL, FASTING, S Routine 08/01/2020 7:[address] ABDOMEN PELVIS WITHOUT IV CONTRAST Routine 01/18/2020 10:32 PM MEDICAL LABORATORY TECHNOLOGIST from Last 3 Months or Most Recently Relevant to Health Maintenance Results * Polysomnography (PSG): HNS Titration (01/10/2024 11:22 PM MEDICAL LABORATORY TECHNOLOGIST) Narrative ONBASE - 01/11/2024 9:40 AM MEDICAL LABORATORY TECHNOLOGIST SUMMARY This was a full night hypoglossal nerve stimulator (Inspire) titration study. ??The patient's awake baseline oxyhemoglobin saturation was 89%. ?? The total sleep time accrued was 497 minutes for a sleep efficiency of 89%. ??The initial stimulation amplitude applied was 1.6 volts. ??A stimulation of 1.8 volts appeared adequate during non-REM and REM sleep in the lateral decubitus positions (apnea-hypopnea index at this stimulation amplitude 7.7 events per hour), but the mean oxyhemoglobin saturation remained lowish at 87%. ??The mean oxyhemoglobin saturation improved to 90% during lateral decubitus position non-REM and REM stages at a stimulation amplitude of 2 volts. ??A definitive setting for supine position sleep was not identified. ??Obstructive sleep disordered breathing events persisted during supine REM at the peak stimulation applied of 2.5 volts. ??For the entire study, the apnea-hypopnea index was 18 events per hour and the mean oxyhemoglobin saturation 88%. ??Periodic limb movements did not occur. CLINICAL INTERPRETATION Inspire at a stimulation amplitude of 2.0 volts results in a satisfactory breathing profile during non-REM and REM sleep off the back. ??A definitive stimulation amplitude for supine position sleep was not determined by this study. ??Borderline sleep related hypoxemia. Cody Gutiérrez M.D. [facility]EP [facility]ENTER ORDERAB LES ONBASE NA from Last 3 Months or Most Recently Relevant to Health Maintenance Advance Directives For more information, please contact: [phone] * Full Code (Latest Code Status on File) Date Activated Date Inactivated Comments 06/20/2023 1:42 PM 06/22/2023 2:04 AM Question Answer Comments Full Code: Discussed Care Teams Sales Recruitment Specialist Relationship Specialty Start Date End Date None Reported, Pcp PCP - General Family Medicine 05/16/23
--- OUTSIDE RECORDS SUMMARY | 2024-04-01 21:13 | XMS_ITS | Encounter Summary ---
Author Name Unknown Organization [facility] Address [address] [place] [address] Care Team Providers Care Deposit Refund Clerk Name Role Phone None Reported, Pcp Primary Care Provider Unavail able Reason for Referral * Outpatient (Routine) - Closed Specialty Diagnoses / Procedures Referred By Demetrice steen Referred To Contact Diagnoses Apnea Sleep Obstructive Procedures Home sleep apnea test (HSAT) Cody Gutiérrez M.D. [address] [place] [address] [facility] Referral ID Status Reason Start Date Expiration Date Visits Re quested Visits Authorized [id number] Closed 01/11/2024 01/10/2025 1 1 HT NURSE Reason for Visit * Outpatient (Routine) - Closed Specialty Diagnoses / Procedures Referred By Demetrice steen Referred To Contact Diagnoses Apnea Sleep Obstructive Procedures Home sleep apnea test (HSAT) Cody Gutiérrez M.D. [address] [place] [phone] [facility] Referral ID Status Reason Start Date Expiration Date Visits Re quested Visits Authorized [id number] Closed 01/11/2024 01/10/2025 1 1 Encounter Details Date Type Department Care Team (Latest Contact Info) Description 01/11/2024 10:01 AM FLIGHT NURSE - 01/14/2024 11:59 PM FLIGHT NURSE Hospital [facility]counter [facility] in [place], [place] [address] [place] [address] Cody Gutiérrez M.D. [address] [place] [address] Apnea Sleep Obstructive Discharge Disposition: Home or [...] How often do you attend chur or confucianism services? 1 to 4 times per year 04/04/2023 Do you belong to any clubs o r organizations such as taoist groups, unions, fraternal or athletic groups, or [...] and heating? Not hard at all 04/04/2023 [facility] [place] of Occupat ional Health - Occupational Stress [...] test strips USE TO TEST DAILY* 08/26/[address] tablet Take by mouth daily. 10/11/2008 ezetimibe-atorvastatin 10-10 mg tablet Take by mouth daily. FLUoxetine (PROzac) 20 mg capsule Take 20 mg by mouth daily. fluticasone propionate (FLONASE) 50 mcg/actuation nasal spray Administer 2 sprays into each nostril daily. meloxicam (MOBIC) 15 mg tablet Take 1 tablet by mouth daily. 7.5mg 10/11/2016 metFORMIN (GLUCOPHAGE) 500 mg tablet Take 500 mg by mouth every 4 (four) hours. pantoprazole (PROTONIX) 40 mg EC tablet Take 40 mg by mouth daily. pregabalin (LYRICA) 100 mg capsule Take 25 mg by mouth 2 (two) times a day. 25mg 3 in the am and 3 in the pm propranoloL (INDERAL LA) 60 mg 24 hr capsule Take 60 mg by mouth daily. rosuvastatin 40 mg capsule, sprinkle Take by mouth. Trulicity 1.5 mg/0.5 mL pen injector injection Inject 0.5 mL (1.5 mg) subcutaneously every week; new dosing once weekly* 10/05/2023 valACYclovir (VALTREX) 1000 mg tablet take 1 tablet by mouth once daily for 5 days as needed for cold sores* 10/19/2023 documented as of this encounter Plan of Treatment Upcoming Encounters Date Type Department Care Team (Late st Contact Info) Description 04/09/2024 9:00 AM CDT Office Visit [facility] in [place], [place] [address] [place] [address] Cody Gutiérrez M.D. [address] [place] [address] Pending Results Name Type Priority Associated Diagnoses Date /Time Home sleep apnea test (HSAT) Sleep Center Routine Apnea Sleep Obstructive 01/11/2024 10:11 AM FLIGHT NURSE Scheduled Orders Name Type Priority Associated Diagnoses Orde r Schedule Home sleep apnea test (HSAT) Sleep Center Routine Apnea Sleep Obstructive Once for 1 Occurrences starting 01/11/2024 until 01/11/2024 documented as of this encounter Visit Diagnoses Diagnosis Apnea Sleep Obstructive documented in this encounter Care Teams Deposit Refund Clerk Relationship Specialty Start Date End Date None Reported, Pcp PCP - General Family Medicine 05/16/23 documented as of this encounter
--- OUTSIDE RECORDS SUMMARY | 2024-04-01 21:13 | XMS_ITS | Referral Summary ---
Author Name Unknown Organization [facility] Address [address] [place] [address] Care Team Providers Care Film Developer Name Role Phone None Reported, Pcp Primary Care Provider Unavail able Source Comments Patient records contain information from all sites at [facility]. For routine questions regarding patient records, call [phone] during business hours, M-F 8:00 AM - 5:00 PM Central Time. Record requests for emergency care only can be directed to [phone] at any time.[facility] Encounters Date Type Department Care Team Description 01/11/2024 10:01 AM BURNISHER - 01/14/2024 11:59 PM [facility] Hospital Encounter [facility] in [place], [place] [address] [place] [phone] Cody Gutiérrez M.D. Apnea Sleep Obstructive Discharge Disposition: Home or Self Care 01/10/2024 6:10 PM BURNISHER - 01/13/2024 11:59 PM BURNISHER Hospital Encounter [facility] in [place], [place] [address] [place] [phone] Cody Gutiérrez M.D. Apnea Sleep Obstructive Discharge Disposition: Home or Self Care 01/11/2024 9:30 AM BURNISHER Office Visit [facility] in [place], [place] [address] [place] [phone] Cody Gutiérrez M.D. Apnea Sleep Obstructive (Primary Dx) 01/10/2024 4:00 PM BURNISHER Office Visit [facility] in [place], [place] [address] [place] [address], [place] [address] Cody Gutiérrez M.D. Apnea Sleep Obstructive (Primary Dx) from Last 3 Months Allergies No known [...] How often do you attend chur or muslim services? 1 to 4 times per year 04/04/2023 Do you belong to any clubs o r organizations such as religion groups, unions, fraternal or athletic groups, or [...] and heating? Not hard at all 04/04/2023 [facility] of Occupat ional Health - Occupational Stress [...] place to sleep or slept in a intermediate (including now)? No 04/04/2023 Nutrition Answer Date [...] Comments Blood Pressure 107/69 01/10/2024 3:47 PM BURNISHER Pulse 75 01/10/2024 3:47 PM BURNISHER Temperature 36.6 ??C (97.9 ??F) 06/20/2023 12:50 PM C DT Respiratory Rate 16 06/20/2023 1:15 PM CDT Oxygen Saturation 93% 06/20/2023 1:15 PM CDT Inhaled Oxygen Concentration - - Weight 100 kg (221 lb 3.7 oz) 01/10/2024 3:47 PM BURNISHER Height 175.6 cm (5' 9.13) 01/10/2024 3:47 PM CS T Body Mass Index 32.54 01/10/2024 3:47 PM BURNISHER Plan of Treatment Upcoming Encounters Date Type Department Care Team (Late st Contact Info) Description 04/09/2024 9:00 AM CDT Office Visit [facility] in [place], [place] [address] [place] [address] Cody Gutiérrez M.D. [address] [place] [address] Medical Devices Implanted Type Area Wildlife [employer] Intern[employer] Device Identifier Shelf Expiration Date Model / Serial / Lot Lead Cuff Stimulation - [id number] - [id number] Implanted:Qty: 1 on 06/20/2023 by Nitin Gutiérrez M.D., M.S. at [facility] Responsive Neurostimulator Sys Right: Neck [employer] 03/21/2026 4063-45 CM / [id number] / Lead Refractory Grinder Operator Ap Thor Rsp Sns - [id number] - [id number] Implanted:Qty: 1 on 06/20/2023 by Nitin Gutiérrez M.D., M.S. at [facility] Responsive Neurostimulator Sys Right: Chest [employer] 04/11/2026 4340 / [id number] / Gen Nrstm Sleep Apnea Thor - [id number] - [id number] Implanted:Qty: 1 on 06/20/2023 by Nitin Gutiérrez M.D., M.S. at [facility] Spinal Cord Stimulator Right: Chest [employer] 04/12/2026 3028 / [id number] / Procedures Procedure Name Priority Date/Time Associated Diagnosis Comments POLYSOMNOGRAPHY Routine 01/10/2024 11:22 PM BURNISHER Apnea Sleep Obstructive EXTI BASIC METABOLIC PANEL, FASTING, S Routine 08/01/2020 7:[address] ABDOMEN PELVIS WITHOUT IV CONTRAST Routine 01/18/2020 10:32 PM BURNISHER from Last 3 Months or Most Recently Relevant to Health Maintenance Results * Polysomnography (PSG): HNS Titration (01/10/2024 11:22 PM BURNISHER) Narrative ONBASE - 01/11/2024 9:40 AM BURNISHER SUMMARY This was a full night hypoglossal [...] Advance Directives For more information, please contact: [phone] * Full Code (Latest Code Status on File) Date Activated Date Inactivated Comments 06/20/2023 1:42 PM 06/22/2023 2:04 AM Question Answer Comments Full Code: Discussed Care Teams Film Developer Relationship Specialty Start Date End Date None Reported, Pcp PCP - General Family Medicine 05/16/23
--- OUTSIDE RECORDS SUMMARY | 2024-04-01 21:13 | XMS_ITS | Referral Summary ---
Author Name Unknown Organization [place] Address [facility] [place] [address] Care Team Providers Care General Claims Agent Name Role Phone Lucero Fraire MD Primary Care Provider [phone] Allergies No known active allergies Medications Medication [...] 20 tablet 0 04/15/2015 Active SIMVASTATIN PO Active aspirin 81 MG tablet Take by mouth daily Active pantoprazole (PROTONIX) 40 MG EC tablet Take 40 mg by mouth daily Active sucralfate (CARAFATE) 1 GM tablet Take 1 tablet (1 g) by mouth 4 times daily 30 tablet 01/18/2020 Active Social History Tobacco Use Types [...] CDT Plan of Treatment Not on file Procedures Procedure Name Priority Date/Time Associated Diagnosis Comments BASIC METABOLIC PANEL STAT 08/01/2020 7:34 PM CDT LIPID PROFILE Routine 12/06/2007 4:00 AM BINDERY MACHINE OPERATOR COLONOSCOPY Routine 01/13/2006 9:15 AM BINDERY MACHINE OPERATOR from Last 3 Months or Most Recently Relevant to Health Maintenance Results * (ABNORMAL) Basic metabolic panel (08/01/2020 7:34 PM CDT) Sodium 141 133 - 144 mmol/L 08/01/2020 8:08 PM [facility] Potassium 4.0 3.4 - 5.3 mmol/L 08/01/2020 8:08 PM [facility] Chloride 109 94 - 109 mmol/L 08/01/2020 8:08 PM [facility] Carbon Dioxide 26 20 - 32 mmol/L 08/01/2020 8:16 PM [facility] Anion Gap 6 3 - 14 mmol/L 08/01/2020 8:16 PM [facility] Glucose 94 70 - 99 mg/dL 08/01/2020 8:16 PM [facility] Urea Nitrogen 14 7 - 30 mg/dL 08/01/2020 8:16 PM [facility] Creatinine 1.01 0.66 - 1.25 mg/dL 08/01/2020 8:16 PM [facility] GFR Estimate 79 >60 mL/min/{1. 73_m2} 08/01/2020 8:16 PM [facility] Comment: Non GFR Calc Starting 11/07/2018, serum creatinine based estimated GFR (eGFR) will be calculated using the Chronic Kidney Disease Epidemiology Collaboration (CKD-EPI) equation. GFR Estimate If Black >90 >60 mL/min/{1. 73_m2} 08/01/2020 8:16 PM CDT [facility] Comment: GFR Calc Starting 11/07/2018, serum creatinine based estimated GFR (eGFR) will be calculated using the Chronic Kidney Disease Epidemiology Collaboration (CKD-EPI) equation. Calcium 8.3(L) 8.5 - 10.1 mg/dL 08/01/2020 8:16 PM CDT [facility] Blood specimen (specimen) 08/01/2020 7:34 PM CDT 08/01/2020 7:52 PM CDT Jarod Rubin MD LAB - BLOOD BORIS THOMPSON [facility] [address] [phone] * (ABNORMAL) Lipid panel (12/06/2007 4:00 AM BINDERY MACHINE OPERATOR) Cholesterol 205(H) 0 - 200 mg/dL [facility] Comment: LDL Cholesterol is the primary guide to therapy: LDL-cholesterol goal in high risk patients is <100 mg/dL and in very high risk patients is <70 mg/dL. The NCEP recommends further evaluation of: patients with cholesterol <200 mg/dL if additionalrisk factors are present, cholesterol >240 mg/dL, triglycerides >150 mg/dL, or HDL <40 mg/dL. Triglycerides 141 0 - 150 mg/dL [facility] HDL Cholesterol 34(L) 40 - 110 mg/dL [facility] LDL Cholesterol Calculated 142(H) 0 - 129 mg/dL [facility] VLDL-Cholesterol 28 0 - 30 mg/dL [facility] Cholesterol/HDL Ratio 5.9(H) 0.0 - 5.0 [facility] 12/06/2007 4:00 AM BINDERY MACHINE OPERATOR 12/06/2007 4:11 AM BINDERY MACHINE OPERATOR Kyle Laughlin MD LAB - BLOOD ORDER [facility] * COLONOSCOPY (01/13/2006 9:15 AM BINDERY MACHINE OPERATOR) COLONOSCOPY Endoscopy Patient Name: Shashank Hastings ?Gender: M ? Procedure Date: 01/13/2006 9:15 AM ? Date of : 1960 ?Age: 45 ? Admit Type: Outpatient ? Attending MD: Mango Mayer ? Procedure: ?Colonoscopy Indications: ?Abdominal distress/pain in the left lower quadrant Providers: ?Mango Mayer MD Referring MD: ?? Kameron German MD Medicines: ?Fentanyl 100 mcg IV, Midazolam 2 mg IV, Atropine 0.6 mg IV Complications: ??No immediate complications Procedure: ?- A History and Physical has been performed, and patient ?medication allergies have been reviewed. The patient The ?risks and benefits of the procedure and the sedation options ?and risks were discussed with the patient. All questions were ?answered and informed consent was obtained. Patient ?identification and proposed procedure were verified prior to ?the procedure by the physician in the procedure room. Mental ?Status Examination: normal. Respiratory Examination: clear to ?auscultation. CV Examination: normal. ASA Grade Assessment: ?P2 A patient with mild systemic disease. After reviewing the ?risks and benefits, the patient was deemed in satisfactory ?condition to undergo the procedure. The anesthesia plan was ?to use moderate sedation / analgesia (conscious sedation). ?Immediately prior to administration of medications, the ?patient was re-assessed for adequacy to receive sedatives. ?The heart rate, respiratory rate, oxygen saturations, blood ?pressure, adequacy of pulmonary ventilation, and response to ?care were monitored throughout the procedure. The physical ?status of the patient was re-assessed after the procedure. ?After obtaining informed consent, the colonoscope was passed ?under direct vision. Throughout the procedure, the patient's ?blood pressure, pulse, and oxygen saturations were monitored ?continuously. The [id number] #[id number] was introduced through ?the anus and advanced to the ileum. The colonoscopy was ?accomplished without difficulty. The patient tolerated the ?procedure well. The quality of the prep was good. ? Findings: ? The digital rectal exam was normal. Two sessile polyps were found in the ? transverse colon. The polyps were 3 mm in size. These were biopsied with ? a hot forceps for histology. The rectum, sigmoid colon, descending ? colon, splenic flexure, hepatic flexure, ascending colon, cecum, ? ileocecal valve and ileum were normal. The retroflexed view of the anal ? verge was normal and showed no anal or rectal abnormalities. The ? terminal ileum was normal. ? Impression: ? - Two 3 mm polyps in the transverse colon. Tissue was removed. ?- The rectum, sigmoid colon, descending colon, splenic ?flexure, hepatic flexure, ascending colon, cecum, ileocecal ?valve and terminal ileum are normal. ?- The terminal ileum is normal. Recommendation: - Discharge patient to home (ambulatory). ?- Patient should telephone endoscopist in 1 week. ?- If polyp is adenomatous repeat colonoscopy in 3 years. If ?polyp is hyperplastic then hemoccults q yr and flex ?sigmoidoscopy in 3 yrs. ?- Return to primary care provider PRN. ? CPT Code(s): ?56544, Colonoscopy, flexible, proximal to splenic flexure; ?with removal of tumor(s), polyp(s), or other lesion(s) by hot ?biopsy forceps or bipolar cautery ICD Code(s): ?211.3, Benign Neoplasm of Colon ?789.04, Abdominal Pain, Left Lower Quadrant The codes documented in this report are preliminary and upon roof service technician review may be revised to meet current compliance requirements. Chinyere Mayer M.D Mango Mayer MD Signed Date: 01/13/2006 9:56 AM Number of Addenda: 0 I was physically present for the entire viewing portion of the exam. Note generated on 01/13/2006 9:14 AM RADIOLOGY RESULTS COLONOSCOPY RADIOLOG Y RESULTS 01/13/2006 9:15 AM BINDERY MACHINE OPERATOR Mango Mayer MD PROCEDURES RADIOLOGY RESULTS from Last 3 Months or Most Recently Relevant to Health Maintenance Care Teams General Claims Agent Relationship Specialty Start Date End Date Lucero Fraire MD [facility] [address], [place] [address] PCP - General 10/20/17
--- OUTSIDE RECORDS SUMMARY | 2024-04-01 21:13 | XMS_ITS | Encounter Summary ---
Author Name Unknown Organization [facility] Address [address] [place] [id number] Care Team Providers Care Evaporator Operator Name Role Phone None Reported, Pcp Primary Care Provider Unavail able Reason for Referral * Outpatient (Routine) - Authorized Specialty Diagnoses / Procedures Referred By Demetrice steen Referred To Contact Sleep Medicine Cody Gutiérrez M.D. [address] [place] [phone] [facility] Referral ID Status Reason Start Date Expiration Date V isits Requested Visits Authorized [id number] Authorized 01/11/2024 07/12/2025 1 1 CAL LEGAL INVESTIGATOR * Outpatient (Routine) - Closed Specialty Diagnoses / Procedures Referred By Demetrice steen Referred To Contact Diagnoses Apnea Sleep Obstructive Procedures Home sleep apnea test (HSAT) Cody Gutiérrez M.D. [address] [place] [phone] [facility] Referral ID Status Reason Start Date Expiration Date Visits Re quested Visits Authorized [id number] Closed 01/11/2024 01/10/2025 1 1 CAL LEGAL INVESTIGATOR Reason for Visit * Outpatient (Routine) - Closed Specialty Diagnoses / Procedures Referred By Demetrice steen Referred To Contact Sleep Cody Lucas M.D. [address] [place] [phone] [facility] Referral ID Status Reason Start Date Expiration Date Visits Re quested Visits Authorized [id number] Closed 11/02/2023 11/01/2026 1 1 Encounter Details Date Type Department Care Team (Late st Contact Info) Description 01/11/2024 9:30 AM MEDICAL LEGAL INVESTIGATOR [facility] [place], [place] [address] [place] [address] Cody Gutiérrez M.D. [address] [place] [phone] Apnea Sleep Obstructive (Primary Dx) Social History [...] How often do you attend chur or nondenominational services? 1 to 4 times per year 04/04/2023 Do you belong to any clubs o r organizations such as cheondoism groups, unions, fraternal or athletic groups, or [...] and heating? Not hard at all 04/04/2023 [facility] - Occupational Stress [...] Progress Notes * Cody Gutiérrez M.D. - 01/11/2024 9:30 AM CST SUBJECTIVE CHIEF COMPLAINT / REASON FOR VISIT Post testing report visit. HISTORY OF PRESENT ILLNESS I met with Mr. Hastings and his to review test results. ASSESSMENT / PLAN #1 Obstructive sleep apnea with PAP intolerance-status post hypoglossal nerve stimulator (Inspire) implantation on June 20, 2023 and activation on August 01, 2023 #2 Sleep-related hypoxemia #3 Obesity Last night's sleep study revealed an incomplete response to Inspire. During non- REM and REM sleep off the back, obstructive sleep disordered breathing events were largely eliminated at a stimulation amplitude of 1.8 volts yet some sleep- related hypoxemia was noted. This improved during lateral decubitus position sleep when the stimulation amplitude was increased to 2.0 volts. A satisfactory stimulation amplitude was not identified for supine position sleep. Obstructive sleep disordered breathing events and sleep-related hypoxemia persisted during supine position sleep at the peak stimulation applied of 2.5 volts. Please see the formal report for more details. After reviewing the polysomnogram results, we discussed potential next steps. Mr. Hastings couldpursue the combination of Inspire at 1.8-2.0 volts plus sleep restriction therapy or we could pursue advanced programming to see if further adjustments might yield a tolerable stimulation amplitude that would address obstructive sleep disordered breathing events in all sleep positions. Mr. Hastings felt more comfortable with the former option. Therefore, we discussed the ???T-shirt with tennisballs?? concept to promote sleep in the lateral decubitus positions. Mr. Hastings acknowledged that he has bilateral hip arthritis and therefore it is unclear if sleep exclusively in the lateral d ecubitus position will be a viable long-term option. Plan 1. The patient's Inspire stimulation range was adjusted to 1.6-2.6 volts and his stimulation amplitude kept at 1.8 volts. Mr. Hastings will implement the ???T-shirt with tennis balls?? concept athis earliest convenience. Once settled, he will gradually try to increase the stimulation amplitudeto 2.0 volts, as tolerated. 2. Recheck visit in 3 months to assess progress. The patient will perform a disposable WatchPAT at home a week or so before that appointment as this test will help determine the efficacy of his efforts to avoid sleep on the back as well as provide an updated index of sleep disordered breathing events on the stimulation amplitude achieved. 3. If things are not ideal at the next visit, I anticipate and advanced programming session to experiment with different electrode configuration settings. 4. If the follow-up home sleep apnea testing results revealed continued sleep- related hypoxemia, then additional tests will be in order such as a chest x-ray, pulmonary function testing, and perhaps an arterial blood gas. Summary of current Inspire settings Stimulation range: 1.6-2.6 volts Stimulation amplitude: 1.8 volts with a goal of 2.0 volts Start delay: 45 minutes Pause time: 15 minutes Maximum therapy duration: 8 hours Stimulation electrode configuration: + - + Total time 30 minutes includes [id number] and [id number] pre- and post- visit tasks performed on the day of the patient encounter. CAL LEGAL INVESTIGATOR documented in this encounter Plan of Treatment Upcoming Encounters Date Type Department Care Team (Late st Contact Info) Description 04/09/2024 9:00 AM CDT Office [facility] [place], [place] [address] [place] [address] Cody Gutiérrez M.D. [address] [place] [address] Pending Results Name Type Priority Associated Diagnoses Date /Time Home sleep apnea test (HSAT) Sleep Center Routine Apnea Sleep Obstructive 01/11/2024 10:11 AM MEDICAL LEGAL INVESTIGATOR Scheduled Orders Name Type Priority Associated Diagnoses Orde r Schedule Home sleep apnea test (HSAT) Sleep Center Routine Apnea Sleep Obstructive Expected: 01/11/2024, Expires: 04/10/2025 Scheduled Referrals Name Type Priority Associated Diagnoses Orde r Schedule Sleep Medicine office visit (clinic) Outpatient Referral Routine Expected: 04/10/2024 (Approximate), Expires: 04/10/2025 documented as of this encounter Visit Diagnoses Diagnosis Apnea Sleep Obstructive- Primary documented in this encounter Care Teams Evaporator Operator Relationship Specialty Start Date End Date None Reported, Pcp PCP - General Family Medicine 05/16/23 documented as of this encounter
--- OUTSIDE RECORDS SUMMARY | 2024-04-01 21:13 | XMS_ITS | Continuity of Care Document ---
Author Name Unknown Organization [facility] Address [address] [place] [phone] Phone Care Team Providers Care Horseshoer Name Role Phone [facility] Unavailable Unava ilable Procedures Procedure Date NEEDLE LOCALIZATION BY XRAY DRAIN/INJECT, JOINT/BURSA Without Ultras ound DRAIN/INJECT, JOINT/BURSA Without Ultras ound NEEDLE LOCALIZATION BY XRAY DRAIN/INJECT, JOINT/BURSA Without Ultras ound DRAIN/INJECT, JOINT/BURSA Without Ultras ound N BLOCK, OTHER PERIPHERAL N BLOCK, OTHER PERIPHERAL Pt doc no events on discharg Pt w/o preop order iv ab pro Advance Directives Directive Yes / No Effective Date File Name No Information Encounters Encounter Description Practice Location Reason(s) For Visit Diagnoses Date Provider Providers Copied on Encounter [facility], [address] [place] [address], [id number], [place] tel:[phone] [facility] No Information [facility]. [address] [place] [address], [id number], [place]. tel:[phone] Referring Provider: Vitaly Bha, [address] [place], [address] . tel:[phone] [facility], [address] [place] [address], [id number], tel:[phone] [facility] No Information 3 [facility]. [address] [place] [address], [id number], . tel:[phone] Referring Provider: Vitaly Bah, [address] [place], [address] . tel:[phone] [facility], [address] [place] [address], [id number], tel:[phone] [facility] No Information 3 [facility]. [address] [place] [address], [id number], . tel:[phone] Referring Provider: Vitaly Bah, [address] [place], [address] . tel:[phone] Family History Family Member Type Diagnosis Age At Onset No Information Payers Payer name Insurance type Covered democrat ID Authorjacintoa teodora(s) Medicare MB [id number] [facility] [id number] Social History Type Description Quantity Date Captured [...]
--- OUTSIDE RECORDS SUMMARY | 2024-04-01 21:13 | XMS_ITS | Clinical Summary ---
Author Name Unknown Organization [facility] Address [address] [place] [address] Care Team Providers Care Wiper Blender Name Role Phone Lucero Fraire MD Primary Care Provider [phone] Source Comments You are receiving this document as you are listed as the primary care provider,follow-up provider, or the patient has been referred to you for consultation.This is in compliance with the Medicare and[facility] EHR Incentive Program,which states Providers who transition their patient to another setting of careor provider of care or refers their patient to another provider of care shouldprovide summary care record for each transition of care or referral. [facility] No known active allergies Medications Medication Sig Dispensed Refills Start Date End Date Status mometasone (AKA NASONEX) 50 MCG/ACT nasal solution 2 sprays by Each Nostril route daily (every 24 hours). 17 3 10/11/2008 Active esomeprazole (AKA NEXIUM) 20 MG capsule Take 1 capsule by mouth daily (every 24 hours). LW Addl Instr:Indicated for: Acid Reflux 30 11/26/2007 Active unknown medication Indications: PN: 10/11/2008 Active simvastatin (AKA ZOCOR) 10 MG tablet Take 1 tablet by mouth every evening. LW Addl Instr:Indicated for: High Cholesterol 90 3 10/11/2008 Active aspirin 81 MG tablet Take 1 tablet by mouth daily (every 24 hours). 90 3 10/11/2008 Active HYDROcodone-acetamino phen (AKA VICODIN,LORTAB) 5-500 MG tablet Take 1 tablet by mouth every 6 hours as needed. 07/03/2011 Active buPROPion (WELLBUTRIN) 75 MG tabletIndications:PUSHPA DEVRIES Oct 08, 2014 4:49 PM Pt unsure of strength Take 75 mg by mouth 3 times daily. 10/08/2014 Active pantoprazole (PROTONIX) 40 MG tablet Take 40 mg by mouth daily. Active aspirin EC (ECOTRIN) 325 MG enteric [...] tablet Take 5 mg by mouth daily. Active atorvastatin (LIPITOR) 40 MG tablet Take 40 mg by mouth daily. Active diazePAM (VALIUM) 2 MG tablet Take 2 mg by mouth as needed for Anxiety. Active fluticasone (FLONASE) 50 MCG/ACT nasal solution Place 2 Sprays into both nostrils daily. Active acetaminophen (TYLENOL) 500 MG tablet Take 1 Tab by mouth every 4 hours as needed for Pain for up to 50 doses. Maximum acetaminophen dose is 4000 mg in 24 hours. 50 Tab 08/08/2017 Active HYDROcodone-acetamino phen (NORCO) 5-325 MG tablet Take 1 Tab by mouth every 6 hours as needed for Pain for up to 30 doses. Maximum acetaminophen dose is 4000 mg in 24 hours. 30 Tab 08/08/2017 Active ondansetron (ZOFRAN-ODT) 4 MG disintegrating tablet Take 1 Tab by mouth every 8 hours as needed for Nausea (Vomiting) for up to 4 doses. Dissolve tablet on tongue. 4 Tab 08/08/2017 Active Active Problems Problem Noted Date [...] (Preventive Services) 1960 PSA Screening Discussion 1960 Adult Preventive Visit 1976 Cholesterol 1993 Zoster/Shingles (1 of 2) 2008 COVID-19 Vaccine (1 - 2022-2 4 season) 2023 Pneumococcal 65+ Yrs (2 - PCV) 2023 02/16/1994 Influenza (Season Ended) 2024 DTaP/Tdap/Td (2 - Tdap) 10/08/2024 10/08/2014 Hib [...] this topic Medical Devices Implanted Type Area Stagecraft Professor Device Identifier Shelf Expiration Date Model / Serial / Lot Bone Putty Vermilion Dbm 1cc - [id number] Implanted:Qty : 1 on 09/27/2016 by Kameron Morales MD at [facility] Left: LEG [employer]onic - [employer] 09/23/2018 [id number] / [id number] / 0 Description:For fusion of pr oximal tibial and fibula fracture Scr Canc Lg Hex 6.5x70 32-Thrd - [id number] Implanted:Qty : 2 on 09/27/2016 by Kameron Morales MD at [facility] Left: LEG [employer] [id number] / 0 / 0 Washer Lg Scr 13.0mm Od - [id number] Implanted:Qty : 2 on 09/27/2016 by Kameron Morales MD at [facility] Left: LEG [employer] [id number] / 0 / 0 Advance Directives * Full Code (Latest Code Status on File) Date Activated Date Inactivated Comments 08/08/2017 1:07 PM 08/08/2017 5:07 PM Full code in effect for 30 days * Full Code Date Activated Date Inactivated Comments 09/27/2016 10:03 AM 09/27/2016 1:23 PM Full code i n effect for 30 days Care Teams Wiper Blender Relationship Specialty Start Date End Date Lucero Fraire MD [address] [place] [address] PCP - General 12/03/15
--- OUTSIDE RECORDS SUMMARY | 2024-04-01 21:13 | XMS_ITS | Clinical Summary ---
Author Name Unknown Organization [facility] [employer] [facility] Address [place], [place] [address] Care Team Providers Care Telecommunications Network Engineer Name Role Phone None Primary Care Provider Unavailabl e Allergies No known active allergies Medications Medication Sig Dispensed Refills Start Date End Date Status aspirin-calcium carbonate 81 mg-300 mg calcium(777 mg) tab Take by mouth. A ctive simvastatin (ZOCOR) 5 mg tablet Take by mouth. Active acetaminophen (TYLENOL EXTRA STRGTH) 500 mg tablet Take 500 mg by mouth every 4 hours. 08/08/2017 Active Active Problems Problem Noted Date [...] Health Maintenance Due Date Last Done Comments Tdap 1969 Depression screening for age 12+ 1970 HIV for age 15-65 1973 BMI (ht and wt on same day) for age 18+ 1976 Hepatitis C screening for age 18-79 1976 Tetanus booster 1978 Colonoscopy through age 75 2003 Lipids for age 45-75 2003 Zoster (shingles) series for age 50+ (1 of 2) 09/22/20 08 COVID-19 vaccine series (1 - 2022-24 season) 3 Pneumococcal series for age 65+ (1 of 1 - PCV) 023 Influenza for age 65+ 07/22/2024 Care Teams Telecommunications Network Engineer Relationship Specialty Start Date End Date None . PCP - General 02/09/18
--- OUTSIDE RECORDS SUMMARY | 2024-04-01 21:13 | XMS_ITS | Clinical Summary ---
Author Name Unknown Organization [facility] Address [facility] [place] [address] Care Team Providers Care Paralegals Name Role Phone Lucero Fraire MD Primary Care Provider [phone] Allergies No known active allergies Medications Medication [...] COVID-19 Vaccine (2 - season) 2023 02/13/2021 GLUCOSE 08/01/2023 08/01/2020, 12/23, 10/06/2012, Additional history exists FALL RISK ASSESSMENT 2023 MEDICARE ANNUAL WELLNESS VISIT 2023 PHQ-2 (once per calendar year) 2023 Pneumococcal Vaccine: 65+ Years (3 of 3 - PPSV23 or PCV20) 04/13/2024 04/13/2019, 02/16/1994 INFLUENZA VACCINE (Season Ended) 2024 08/25/2022, 07/25/2021, 07/29/2020, Additional history exists DTAP/TDAP/TD IMMUNIZATION (4 - Td or Tdap) 04/02/2032 04/02/2022, 10/08/2014, 08/24/2012 HPV IMMUNIZATION Aged Out No longer e [...] on patient's age to complete this topic Procedures Procedure Name Priority Date/Time Associated Diagnosis Comments BASIC METABOLIC PANEL STAT 08/01/2020 7:34 PM CDT LIPID PROFILE Routine 12/06/2007 4:00 AM RACECOURSE BARRIER ATTENDANT COLONOSCOPY Routine 01/13/2006 9:15 AM RACECOURSE BARRIER ATTENDANT from Last 3 Months or Most Recently Relevant to Health Maintenance Results * (ABNORMAL) Basic metabolic panel (08/01/2020 7:34 PM CDT) Sodium 141 133 - 144 mmol/L 08/01/2020 8:08 PM [facility] Potassium 4.0 3.4 - 5.3 mmol/L 08/01/2020 8:08 PM [facility] Chloride 109 94 - 109 mmol/L 08/01/2020 8:08 PM [facility] Carbon Dioxide 26 20 - 32 mmol/L 08/01/2020 8:16 PM [facility] Anion Gap 6 3 - 14 mmol/L 08/01/2020 8:16 PM [facility] Glucose 94 70 - 99 mg/dL 08/01/2020 8:16 PM [facility] Urea Nitrogen 14 7 - 30 mg/dL 08/01/2020 8:16 PM [facility] Creatinine 1.01 0.66 - 1.25 mg/dL 08/01/2020 8:16 PM [facility] GFR Estimate 79 >60 mL/min/{1. 73_m2} 08/01/2020 8:16 PM [facility] Comment: Non GFR Calc Starting 11/07/2018, serum creatinine based estimated GFR (eGFR) will be calculated using the Chronic Kidney Disease Epidemiology Collaboration (CKD-EPI) equation. GFR Estimate If Black >90 >60 mL/min/{1. 73_m2} 08/01/2020 8:16 PM [facility] Comment: GFR Calc Starting 11/07/2018, serum creatinine based estimated GFR (eGFR) will be calculated using the Chronic Kidney Disease Epidemiology Collaboration (CKD-EPI) equation. Calcium 8.3(L) 8.5 - 10.1 mg/dL 08/01/2020 8:16 PM CDT [facility] Blood specimen (specimen) 08/01/2020 7:34 PM CDT 08/01/2020 7:52 PM CDT Jarod Rubin MD LAB - BLOOD [facility] [address] [place], [place] [address] [phone] * (ABNORMAL) Lipid panel (12/06/2007 4:00 AM RACECOURSE BARRIER ATTENDANT) Cholesterol 205(H) 0 - 200 mg/dL MISYS [...] 0.0 - 5.0 MISYS 12/06/2007 4:00 AM RACECOURSE BARRIER ATTENDANT 12/06/2007 4:11 AM RACECOURSE BARRIER ATTENDANT Kyle Laughlin MD LAB - BLOOD ORDER TERESA MISYS * COLONOSCOPY (01/13/2006 9:15 AM RACECOURSE BARRIER ATTENDANT) COLONOSCOPY Endoscopy Patient Name: Shashank Hastings ?Gender: [...] and oxygen saturations were monitored ?continuously. The [id number] #[id number] was introduced through ?the anus and advanced [...] primary care provider PRN. ? CPT Code(s): ?34888, Colonoscopy, flexible, proximal to splenic flexure; ?with removal of tumor(s), polyp(s), or other lesion(s) by hot ?biopsy forceps or bipolar cautery ICD Code(s): ?211.3, Benign Neoplasm of Colon ?789.04, Abdominal Pain, Left Lower Quadrant The codes documented in this report are preliminary and upon assistant director of nursing review may be revised to meet current compliance requirements. Chinyere Mayer M.D Mango Mayer MD Signed Date: 01/13/2006 9:56 AM Number of Addenda: 0 I was physically present for the entire viewing portion of the exam. Note generated on 01/13/2006 9:14 AM RADIOLOGY RESULTS COLONOSCOPY RADIOLOG Y RESULTS 01/13/2006 9:15 AM RACECOURSE BARRIER ATTENDANT Mango Mayer MD PROCEDURES RADIOLOGY RESULTS from Last 3 Months or Most Recently Relevant to Health Maintenance Care Teams Paralegals Relationship Specialty Start Date End Date Lucero Fraire MD [facility] [address] [place], [place] [id number] PCP - General 10/20/17
--- OUTSIDE RECORDS SUMMARY | 2024-04-01 21:13 | XMS_ITS | Encounter Summary ---
Author Name Unknown Organization [facility] Address [address] [place] [address] Care Team Providers Care Spectrographer Name Role Phone None Reported, Pcp Primary Care Provider Unavail able Reason for Referral * Outpatient (Routine) - Closed Specialty Diagnoses / Procedures Referred By Demetrice steen Referred To Contact Diagnoses Apnea Sleep Obstructive Procedures Polysomnography (PSG): HNS Titration Cody Gutiérrez M.D. [address] [place] [address] [facility] Referral ID Status Reason Start Date Expiration Date Visits Re quested Visits Authorized [id number] Closed 01/10/2024 01/09/2025 1 1 TEGIC MARKETING MANAGER Reason for Visit * Outpatient (Routine) - Closed Specialty Diagnoses / Procedures Referred By Demetrice steen Referred To Contact Sleep Medicine Cody Gutiérrez M.D. [address] [place] [address] [facility] Referral ID Status Reason Start Date Expiration Date Visits Re quested Visits Authorized [id number] Closed 11/02/2023 11/01/2026 1 1 Encounter Details Date Type Department Care Team ([facility] st Contact Info) Description 01/10/2024 4:00 PM STRATEGIC MARKETING MANAGER Office [facility] [place], [place] [address] [place] [phone] Cody Gutiérrez M.D. [address] [place] [address] Apnea Sleep Obstructive (Primary Dx) Social History [...] often do you attend chur ch or church services? 1 to 4 times per year [...] and heating? Not hard at all 04/04/2023 [facility] - Occupational Stress Questionnaire Answer Date [...] Comments Blood Pressure 107/69 01/10/2024 3:47 PM STRATEGIC MARKETING MANAGER Pulse 75 01/10/2024 3:47 PM STRATEGIC MARKETING MANAGER Temperature - - Respiratory Rate - - Oxygen Saturation - - Inhaled Oxygen Concentration - - Weight 100 kg (221 lb 3.7 oz) 01/10/2024 3:47 PM STRATEGIC MARKETING MANAGER Height 175.6 cm (5' 9.13) 01/10/2024 3:47 PM CS T Body Mass Index 32.54 01/10/2024 3:47 PM STRATEGIC MARKETING MANAGER documented in this encounter Progress Notes * Cody Gutiérrez M.D. - 01/10/2024 4:00 PM CST SUBJECTIVE CHIEF COMPLAINT / REASON FOR VISIT Pre-fine tune Inspire PSG report visit HISTORY OF PRESENT ILLNESS Mr. Hastings is a 63 y.o. male with obstructive sleep apnea, PAP intolerance, diabetes mellitus type 2, hyperlipidemia, stroke, GERD, rheumatoid arthritis, major depression, obesity, and migraineswho presents for a recheck of Inspire therapy that was implanted on June 20, 2023 and activated on August 01, 2023. Verbal histories were obtained today from the patient and his . During the encounter, we reviewed the usage report downloaded from the patient's Inspire bowen. Recall that at our last visit on November 02, 2023 a home sleep apnea test at a stimulation amplitude of 1.5 volts revealed persistence of moderately severe obstructive sleep apnea. Further uptitration of Inspire was advised. Mr. Hastings was able to up titrate to 1.9 volts, level 10 on his Inspire remote controller, butthis was quite strong so he has settled at 1.8 volts. At this level, Mrs. Hastings is not observing significant snoring or witnessed apneas, although they are not in the same bed for the entire night. The patient has not recently aware of snorting, choking, or gasping himself awake during sleep with Inspire activated. The downloaded adherence report indicates that over the period of December 11, 2023 to January 09, 2024 the device was used 28 of 30 nights for an average of 6 hours and 13 minutes per night. On 77% of those nights he used the device for at least 4 hours. He has been averaging 2 therapy pauses per night. Extending the start delay to 45 minutes has been helpful for the patient to initiate sleep. Mr. Hastings notices some tongue discomfort immediately upon awakening in the morning but this tends to dissipate quickly. He denies morning dysarthria or dysphagia. He also denies any difficulties with the Inspire incision sites. With consistent use of Inspire, Mr. Hastings thinks his sleep is more restorative and he is feeling more rested during the day. Today's [place] Sleepiness Scale score is 11. This compares to an [place] Sleepiness scale score of 6 at the patient's outpatient consultation in March 2023. OBJECTIVE VITAL SIGNS Blood Pressure: 107/69 (01/10/2024 3:47 PM) Pulse Rate: 75 (01/10/2024 3:47 PM) BMI (Calculated): 32.5 kg/m?? (01/10/2024 3:47 PM) Height: 175.6 cm (01/10/2024 3:47 PM) Weight: 100 kg (01/10/2024 3:47 PM) PHYSICAL EXAMINATION General: Arrived to and left the examination room in a wheelchair but he was able to get on and offthe exam room couch under his own power. ENT: Speech clear. Handling oral secretions well. Tongue protrudes midline to command. Lateral tongue range of motion demonstrated. Skin: Clean, dry, intact, non fluctuant, and non erythematous right submandibular and right subclavicular incision sites. ASSESSMENT / PLAN #1 Obstructive sleep apnea with PAP intolerance-status post hypoglossal nerve stimulator (Inspire) implantation on June 20, 2023 and activation on August 01, 2023 I thanked the patient for his continued efforts to up titrate Inspire therapy. He appears to be at his maximum tolerated level and therefore I think we should proceed to the fine tune polysomnogram tonight beginning with the stimulation amplitude of 1.6 volts and up titrating, as needed, for residual obstructive sleep disordered breathing events. I anticipate seeing him tomorrow to review the results. Summary of current Inspire settings Incoming stimulation range: 1.0-2.0 volts Incoming stimulation amplitude: 1.8 volts (level 9) Start delay: 45 minutes Pause time: 15 minutes Maximum therapy duration: 8 hours Total time 30 minutes includes [id number] and ctc-tdgh-ti-face pre- and post- visit tasks performed on the day of the patient encounter. TEGIC MARKETING MANAGER documented in this encounter Plan of Treatment Upcoming Encounters Date Type Department Care Team (Late st Contact Info) Description 04/09/2024 9:00 AM CDT Office [facility] [place], [place] [address] [place] [address] Cody Gutiérrez M.D. [address] [place] [address] documented as of this encounter Results * Polysomnography (PSG): HNS Titration (01/10/2024 11:22 PM STRATEGIC MARKETING MANAGER) Narrative ONBASE - 01/11/2024 9:40 AM STRATEGIC MARKETING MANAGER SUMMARY This was a full night hypoglossal [...] Obstructive documented in this encounter Care Teams Spectrographer Relationship Specialty Start Date End Date None Reported, Pcp PCP - General Family Medicine 05/16/23 documented as of this encounter
--- OUTSIDE RECORDS SUMMARY | 2024-04-01 21:13 | XMS_ITS | Encounter Summary ---
Author Name Unknown Organization [facility] Address [address] [place] [address] Care Team Providers Care Production Checker Name Role Phone Lucero Fraire MD Primary Care Provider Encounter Details Date Type Department Care Team (Late st Contact Info) Description 07/08/2016 Orders Only [facility] [address] [place] [address] Kameron Morales MD [address] [place] [address] Post-traumatic osteoarthritis of left knee Social History [...] leg documented in this encounter Care Teams Production Checker Relationship Specialty Start Date End Date Lucero Fraire MD [address] [place] [address] PCP - General 12/03/15 documented as of this encounter
--- OUTSIDE RECORDS SUMMARY | 2024-04-01 21:13 | XMS_ITS | Continuity of Care Document ---
Author Name Unknown Organization [facility] Address [address] [place] [address] Phone Care Team Providers Care Order Editor Name Role Phone Unavailable Unavailable Unavailable Allergies, Adverse Reactions, Alerts Substance Reaction Status Criticality No Known Allergies Active No Inform ation Medications Medication Instructions Dosage Effective Dates (start - stop) Status Comments FLUOXETINE HCL (unknown strength) Not Available - Active VITAMIN D3 (unknown strength) Not Available - Active ROSUVASTATIN CALCIUM (unknown strength) Not Available - Active GABAPENTIN (unknown strength) Not Available - Active AZATHIOPRINE (unknown strength) Not Available - Active PANTOPRAZOLE SODIUM (unknown strength) Not Available - Active ASPIRIN (unknown strength) Not Available - Active Vicodin (unknown strength) Not Available - Active Procedures Procedure Date Office/Outpatient Visit,New, [facility] Results Test Name Date and Time Measure Units Reference Range Abnormal Flag Status Comments Panel Description: Transfora judd Kbcuzmw-Dddraa-Rqnwraxsdlebqh (TRANSLUMNONPART) Unknown TRANSLUMNONPART 17:15:59 (See Attached Document) Unknown (See Attached Document) Panel Description: Transfora judd Ayzmjie-Gkkanq-Kptzrxsxqrjtol (TRANSLUMNONPART) Unknown Image Transforaminal Usomopv-Nyqbxa-C onparti Advance Directives Directive Yes / No Effective Date File Name No Information Encounters Encounter Description Practice Location Reason(s) For Visit Diagnoses Date Provider Providers Copied on Encounter [facility], [address], [place], [place], [id number], [place] tel:[phone] [facility] [place] No Information No Information Office/Outpat ient Visit,New, [facility], [address], [place], [id number], [place] tel:[phone] [facility] [place] Radiculopath y, lumbar region No Information Family History Family Member Type Diagnosis Age At Onset No Information Payers Payer name Insurance type Covered republican ID Authoriza tion(s) Medicare [id number] For Life/Retired B[place] [id number] Social History Type Description Quantity Date Captured [...]
--- OUTSIDE RECORDS SUMMARY | 2024-04-01 21:13 | XMS_ITS | Continuity of Care Document ---
Author Name Unknown Organization [facility] Address [address] [place] [address] Phone Care Team Providers Care Motor And Chassis Inspector Name Role Phone Raymon Negrete DO Unavailable Unavailable Allergies, Adverse Reactions, Alerts Substance Reaction Status Criticality No Known Allergies Active No Inform ation Medications Medication Instructions Dosage Effective Dates (start - stop) Status Comments Methocarbamol Oral Tablet 750 MG TAKE ONE TABLET BY MOUTH THREE TIMES DAILY - Active Trulicity 0.75 mg/0.5 mL subcutaneous pen injector inject (0.75MG) by subcutaneous route every week 0.75 MG - Active pregabalin 25 mg capsule [...] 40 MG - Active Procedures Procedure Date BILATERAL N BLOCK INJ, OCCIPTAL 024 Betamethasone acet sod phosp Nerve Block Other Peripheral RIGHT DRAIN/INJECT, JOINT/BURSA Mar-12-2024 NEEDLE LOCALIZATION BY Flouroscopy OFFICE/OUTPATIENT VISIT, EST DRAIN/INJECT, JOINT/BURSA NEEDLE LOCALIZATION BY Flouroscopy OFFICE/OUTPATIENT VISIT, EST OFFICE/OUTPATIENT VISIT, EST N BLOCK, OTHER PERIPHERAL BILATERAL OFFICE/OUTPATIENT VISIT, EST Disabilty Reports Forms [facility] OFFICE/OUTPATIENT VISIT, EST Nerve Block Other Peripheral LEFT Ultrasound Guidance [employer] [facility] OFFICE/OUTPATIENT VISIT, EST [facility] OFFICE CONSULTATION Advance Directives Directive Yes / No Effective Date File Name No Information Encounters Encounter Description Practice Location Reason(s) For Visit Diagnoses Date Provider Providers Copied on Encounter [facility], [address] [place] [address], [id number] , [place] tel:[phone] [facility] Occipital neuralgia 4 Caden Ennis. [address] [place] [address], [id number], [place]. tel:[phone] Referring Provider: Vitaly Cruz, [address] [place] [address], [id number]. tel:[phone] [facility], [address] [place] [address], [id number] , [place] tel:[phone] [facility] Pain in right hipPain in left hip 4 Niurka Haider. [address] [place] [address], [id number], [place]. tel:[phone] Referring Provider: Vitaly Cruz, [address] [place] [address], [id number]. tel:[phone] OFFICE/OUTPAT IENT VISIT, EST [facility], [address] [place] [address], [id number] , [place] tel:[phone] [facility] [place] Widespread pain (chief complaint) Chronic pain syndromePain in right hipPain in left hipOther spondylosis with radiculopathy , lumbar regionOther spondylosis, cervical regionOccipit al neuralgiaOthe r senior care (current) drug therapy Jan-0 4 Gamaliel Webber. [address], [place], [place], [id number], [place]. tel:[phone] Locomotive Engineer Electric: Tonya Stern, [employer] [facility] [address], [place], [address]. tel:[phone] Workers Compensation .Referring Provider: Vitaly Cruz, [address] [place] [address], [id number]. tel:[phone] [facility], [address] [place] [address], [id number] , [place] tel:[phone] [facility] Pain in left hipPain in right hip Sep- 3 Niurka Haider. [address] [place] [address], [id number], [place]. tel:[phone] Referring Provider: Vitaly Cruz, [address] [place] [address], [id number]. tel:[phone] OFFICE/OUTPAT IENT VISIT, [facility], [address] [place] [address], [id number] , [place] tel:[phone] [facility] Widespread pain (chief complaint) Chronic pain syndromePain in right hipPain in left hipOther spondylosis with radiculopathy , lumbar regionOther spondylosis, cervical regionOccipit al neuralgiaOthe r watermaster (current) drug therapy Sep-1 3 Laurelizeth Smiley. [address] [facility] [address], [place], [place], [id number], [place]. tel:[phone] Locomotive Engineer Electric: Tonya Stern, [employer] [facility] [address], [place], [address]. tel:[phone] Workers Compensation .Referring Provider: Vitaly Cruz, [address] [place] [address], [id number]. tel:[phone] OFFICE/OUTPAT IENT VISIT, EST [facility], [address] [place] [address], [id number] , [place] tel:[phone] [facility] Widespread pain (chief complaint) Chronic pain syndromeOther spondylosis with radiculopathy , lumbar regionOccipit al neuralgiaOthe r spondylosis, cervical regionPain in right hipPain in left hipOther senior care (current) drug therapy Jul-0 3 Laure Sherice. [address], [place], [place], [id number], [place]. tel:[phone] Locomotive Engineer Electric: Tonya Stern, [employer] [employer] [facility] [address], [place], [address]. tel:[phone] Workers Compensation .Referring Provider: Vitaly Cruz, [address] [place] [address], [id number]. tel:[phone] [facility], [address] [place] [address], [id number] , [place] tel:[phone] [facility] No Information 0 3 Laure Sherice. [address] [facility] [address], [place], [id number], [place]. tel:[phone] [facility], [address] [place] [address], [id number] , [place] tel:[phone] [facility] Occipital neuralgia Jan- 3 Niurka Haider. [address] [place] [address], [id number], [place]. tel:[phone] Referring Provider: Vitaly Cruz, [address] [place] [address], [id number]. tel:[phone] OFFICE/OUTPAT IENT VISIT, [facility], [address] [place] [address], [id number] , [place] tel:[phone] [facility] Widespread pain (chief complaint) Chronic pain syndromeOccip ital neuralgiaPain in left footPain in right footCervicalg iaOther spondylosis with radiculopathy , lumbar region Jan- 3 Laure Smiley. [address], [place], [place], [id number], [place]. tel:[phone] Locomotive Engineer Electric: Tonya Stern, [employer] [employer] [facility] [address], [place], [address]. tel:[phone] Workers Compensation .Referring Provider: Vitaly Cruz, [address] [place] [address], [id number]. tel:[phone] [facility], [address] [place] [address], [id number] , [place] tel:[phone] [facility] No Information 8201 8 Pepe Mcmillan. [address] [place] [address], [id number], [place]. tel:[phone] Referring Provider: Vitaly Cruz, [address] [place] [address], [id number]. tel:[phone] OFFICE/OUTPAT IENT VISIT, EST [facility], [address] [place] [address], [id number] , [place] tel:[phone] [facility] Leg Pain (chief complaint) Pain in left kneeOther chronic postprocedura l painPain in left leg 3-201 8 Pepe Mcmillan. [address] [place] [address], [id number], [place]. tel:[phone] Locomotive Engineer Electric: Tonya Stren, [employer] [address], [place], [address]. tel:[phone] Workers Compensation .Referring Provider: Vitaly Cruz, [address] [place] [address], [id number]. tel:[phone] [facility], [address] [place] [address], [id number] , [place] tel:[phone] [facility] Pain in left leg 0-201 8 Kate Suresh. [address] [place] [address], [id number], [place]. tel:[phone] OFFICE/OUTPAT IENT VISIT, EST [facility], [address] [place], [place], [id number] , [place] tel:[phone] [facility] Leg Pain (chief complaint) Other chronic postprocedura l painPain in left kneePain in left leg 8 Pepe Costellohanie. [address] [place] [address], [id number], [place]. tel:[phone] Locomotive Engineer Electric: Tonya Stern, [employer] [facility] [address], [place], [address]. tel:[phone] Workers Compensation . OFFICE CONSULTATION [facility], [address] [place] [address], [id number] , tel:[phone] [facility] Leg Pain (chief complaint) Pain in left legPain in left kneeOther chronic postprocedura l pain Jan- 8 Pepe Mcmillan. [address] [place] [address], [id number], [place]. tel:[phone] Locomotive Engineer Electric: Tonya Stern, [employer] [facility] [address], [place], [address]. tel:[phone] Workers Compensation . [facility], [address] [place] [address], [id number] , [place] tel:[phone] [facility] [place] No Information Jan-0 8 Kulwinder Haider. [address] [place] [address], [id number], [place]. tel:[phone] Family History Family Member Type Diagnosis Age At Onset No Information Payers Payer name Insurance type Covered libertarian ID Authorjacintoa tianshul(s) Medicare MB [id number] Merged With [facility] [place] [id number] Social History Type Description Quantity Date Captured Comments Alcohol Use Details Unknown Caffeine Use Details Unknown Tobacco Use Status No Information Smoking Status No Information Sex Male Chief Complaint And Reason For Visit No Information Reason For Referral Reason For Referral No Information Plan Of Treatment Date Type Action Status Goal Hepatitis C screening. Due o n due Goal Tobacco Use. Due on due Goal Height. Due on d ue Goal FIT-DNA. Due on due Goal FIT. Due on due Goal CT-Colonography. Due on due Goal Lipid panel. Due on due Goal Update Social History. Due o n due Goal Medication Reconciliation. D ue on due Goal Weight. Due on d ue Goal PHQ-9. Due on du e Goal Review Allergy List. Due on due Goal Zoster vaccine (1st). Due on due Goal Unhealthy drug use screening . Due on due Goal Lipid panel. Due on due Goal FIT-DNA. Due on due Goal Tobacco Use. Due on due Goal Height. Due on d ue Goal Review Allergy List. Due on due Goal Weight. Due on d ue Goal FIT. Due on due Goal Medication Reconciliation. D ue on due Goal PHQ-9. Due on du e Goal CT-Colonography. Due on due Goal Zoster vaccine (1st). Due on due Goal Unhealthy drug use screening . Due on due Goal Hepatitis C screening. Due o n due Goal Update Social History. Due o n due Goal Lifestyle education regardin g diet completed Goal Height. Due on d ue Goal Weight. Due on d ue Goal Medication Reconciliation. D ue on due Goal Tobacco Use. Due on 023 due Goal PHQ-9. Due on du e Goal Zoster vaccine (). Due on due Goal CT-Colonography. Due on due Goal Hepatitis C screening. Due o n due Goal Review Allergy List. Due on due Goal Update Social History. Due o n due Goal FIT-DNA. Due on due Goal Unhealthy drug use screening . Due on due Goal FIT. Due on due Goal Lipid panel. Due on 023 due Goal PHQ-9. Due on du e Goal Medication Reconciliation. D ue on due Goal Weight. Due on d ue Goal Tobacco Use. Due on [address]-Colonography. Due on due Goal FIT. Due on due Goal FIT-DNA. Due on due Goal Height. Due on d ue Goal Zoster vaccine (1st). Due on due [...] Illness Widespread pain Severity level i s 9. Duration: chronic. The client describes it as achy. Symptom is aggravated by sitting and movement. Relieving factors include Rx Meds. Pertinent negatives include diarrhea, fatigue, fever and incontinence (urinary). Comments: This i s my first evaluation of the patient, previously followed by Sherice Kelsey DNP, who no longer practices at [facility].Shashank is a 63 y/o male who presents for follow up in the setting of chronic widespread pain, most prominent in the neck, mid-low back, and BL feet. Complains of ongoing R sided low back pain with radiation into the BL hips and groin. Pain has been worse since BRET.He is s/p BL hip joint injection on 08/09/23 with significant relief for about 6 months. He would like these repeated today.BL lesser ONB on 02/15/[address] Bah provided 70% pain relief for nearly 1 year. He would like to repeat this today d/t headaches/back of the head pain.He is currently managed on medical cannabis for his pain and would like to be recertified today. No other concerns today. Widespread pain Severity [...] well for him. No other concerns today. Comments: Shashank is a 62 y/o male [...] include diarrhea, fatigue, fever and incontinence (urinary). Widespread pain Severity level i s 6. [...] patient was previously seen in clinic by [facility], but not since March 2018. Pain [...] that he recently completed lumbar imaging at [facility], available for review.Currently attends PT at [facility], and is managed on Lyrica 25mg TID and Rattan 5-325mg.Shashank is interested in pain management through [facility]. Inquires about being prescribed a muscle relaxant. [...] L calf. PT was previously completed at [facility] in February; on hold pedning results from peroneal block. Did see some improvement in his pain with quadriceps massage from PT previously. He is accompanied by his . [facility] is also present during today's OV. Leg Pain (comments) Shashank is he re for follow up. He c/o sleepiness with the gabapentin 1200mg/day but is trying to work through it. Met with an Dr Flor (ortho) in [place] for an evaluation and surgery was not recommended for him; per [facility], pt's quadriceps is not firing so physical therapy, perineal nerve block, and medication management was recommended to return to regular gait. Went to physical therapy ([facility]) yesterday and received massage, which initially was painful but provided some relief. Voltaren gel provided pain relief and requested a refill. Denies trying muscle relaxants. On Rattan for unrelated issue, and does not find [...] tibia/fibula. Was sent to Dr. Morales by [facility] for a tib/fib fusion, completed 09/2016. 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
--- OUTSIDE RECORDS SUMMARY | 2024-04-01 21:13 | XMS_ITS | Encounter Summary ---
Author Name Unknown Organization [facility] Address [address] [place] [address] Care Team Providers Care Supervisor Core Drilling Name Role Phone None Reported, Pcp Primary Care Provider Unavail able Reason for Referral * Outpatient (Routine) - Closed Specialty Diagnoses / Procedures Referred By Demetrice steen Referred To Contact Diagnoses Apnea Sleep Obstructive Procedures Polysomnography (PSG): HNS Titration Cody Gutiérrez M.D. [address] [place] [address] [facility] Referral ID Status Reason Start Date Expiration Date Visits Re quested Visits Authorized [id number] Closed 01/10/2024 01/09/2025 1 1 ERIES BIOLOGIST Reason for Visit * Outpatient (Routine) - Closed Specialty Diagnoses / Procedures Referred By Contac enio Referred To Contact Diagnoses Apnea Sleep Obstructive Procedures Polysomnography (PSG): HNS Titration Cody Gutiérrez M.D. [address] [place] [phone] [facility] Referral ID Status Reason Start Date Expiration Date Visits Re quested Visits Authorized [id number] Closed 01/10/2024 01/09/2025 1 1 Encounter Details Date Type Department Care Team (Latest Contact Info) Description 01/10/2024 6:10 PM FISHERIES BIOLOGIST - 01/13/2024 11:59 PM FISHERIES BIOLOGIST Hospital [facility] [place], [place] [address] [place] [address] Cody Gutiérrez M.D. [address] [place] [address] Apnea Sleep Obstructive Discharge Disposition: Home or [...] How often do you attend chur or anabaptism services? 1 to 4 times per year 04/04/2023 Do you belong to any clubs o r organizations such as latter-day groups, unions, fraternal or athletic groups, or [...] and heating? Not hard at all 04/04/2023 [facility] [place] [facility] - Occupational Stress [...] Office Visit [facility] [place], [place] [address] [place] [address] Cody Gutiérrez M.D. [address] [place] [address] documented as of this encounter Procedures Procedure Name Priority Date/Time Associated Diagnosis Comments POLYSOMNOGRAPHY Routine 01/10/2024 11:22 PM FISHERIES BIOLOGIST Apnea Sleep Obstructive documented in this encounter Results * Polysomnography (PSG): HNS Titration (01/10/2024 11:22 PM FISHERIES BIOLOGIST) Narrative ONBASE - 01/11/2024 9:40 AM FISHERIES BIOLOGIST SUMMARY This was a full night hypoglossal [...] Obstructive documented in this encounter Care Teams Supervisor Core Drilling Relationship Specialty Start Date End Date None Reported, Pcp PCP - General Family Medicine 05/16/23 documented as of this encounter
--- NOTE | 2024-04-01 21:36 | PC.NURSE ---
Dr Cordova returned page from [place]
[2024-04-01 22:11] LABS: Basophils Absolute Auto 0.05 K/uL (0.00-0.30); Basophils Percent Auto 0.5 % (0.0-3.0); Eosinophils Absolute Auto 0.19 K/uL (0.00-0.50); Eosinophils Percent Auto 1.8 % (0.0-7.0); Hematocrit 47.1 % (37.0-53.0); Hemoglobin* 15.8 gm/dL (13.5-17.5); Immature Granulocytes Abs Auto 0.03 K/uL (0.00-0.30); Immature Granulocytes Pct Auto 0.3 %; Lymphocytes Percent Auto 45.3 % (20-44); Mean Corpuscular HGB Conc 34 gm/dL (32-36); Mean Corpuscular Hemoglobin 29 pg (26-34); Mean Corpuscular Volume 88 fL (80-100); Monocytes Percent Auto 12.3 % (0.0-11.0); Neutrophils Percent Auto 39.8 % (42.0-72.0); Platelet Count* 288 K/uL (140-440); RDW Coefficient of Variation % 13.4 % (11.5-15.5); Red Blood Count 5.37 m/uL (4.30-5.90); White Blood Count* 10.83 K/uL (4.50-11.00)
[2024-04-01] MEDS: 0.9 % SODIUM CHLORIDE 1000 ml 1,000 ML IV (22:25)
[2024-04-01 22:32] LABS: Slide Review Reflex No
[2024-04-01 22:33] LABS: Chloride* 107 mmol/L (96-114); Potassium* 3.8 mmol/L (3.6-5.1); Sodium* 139 mmol/L (135-149)
[2024-04-01 22:36] LABS: Anion Gap 6 mEq/L (7-15); Blood Urea Nitrogen* 14 mg/dL (7-30); Carbon Dioxide* 26 mmol/L (20-32); Creatinine* 0.9 mg/dL (0.5-1.5); Est. Creatinine Clearance* 71.25; Estimated Glomerular Filt Rate 95 ml/min
[2024-04-01 22:37] VITALS: BP 128/83; PULSE 78; O2SAT 93
[2024-04-01 22:37] LABS: Calcium* 9.1 mg/dL (8.4-10.6); Glucose* 111 mg/dL (60-115)
[2024-04-01 22:38] VITALS: PULSE 75; O2SAT 92
[2024-04-01 22:45] VITALS: PULSE 74; O2SAT 91
[2024-04-01 23:00] VITALS: PULSE 74; O2SAT 92
[2024-04-01 23:02] VITALS: BP 124/75; PULSE 75; O2SAT 92
== END 2024-04-01 23:13 | disposition home or self-care (01) ==
PROVIDERS: Emergency Provider Family Medicine; PCP Physician Assistant Medical
DX: R20.2 Paresthesia of skin (principal)
CPT/HCPCS: 36415; 70450; 70496; 70498; 80048; 82962; 85025; 93005; 94761; 99284; 99285; J7030; Q9967

== ENCOUNTER 2024-05-16 08:06 | Outpatient (CLI) | payer MEDICARE, OTHER, SELFPAY ==
--- OUTSIDE RECORDS SUMMARY | 2024-05-16 08:10 | XMS_ITS | Referral Summary ---
Author Organization [facility] Address [address] [place] [address] Care Team Providers Care Melter Supervisor Open Hearth Furnace Name Role Phone None Reported, Pcp Primary Care Provider Unavail able Source Comments Patient records contain information from all sites at [facility]. For routine questions regarding patient records, call [phone] during business hours, M-F 8:00 AM - 5:00 PM Central Time. Record requests for emergency care only can be directed to [phone] at any time.[facility] Encounters Date Type Department Care Team Description 04/09/2024 9:00 AM CDT [facility] Visit [facility] [place], [place] [address] [place] [phone] Cody Gutiérrez M.D. Apnea Sleep Obstructive (Primary Dx) 04/04/2024 7:27 AM CDT - 04/07/2024 11:59 PM CDT Hospital Encounter [facility] [place], [place] [address] [place] [phone] Cody Gutiérrez M.D. Discharge Disposition: Home or Self Care from Last 3 Months Allergies No known [...] as needed for cold sores* 10/19/2023 Active cyclobenzaprine (FLEXERIL) 10 mg tablet TAKE ONE TABLET BY MOUTH AT BEDTIME NEEDED for muscle spasm* 03/23/2024 Active tamsulosin (FLOMAX) 0.4 mg 24 hr capsule Take 0.4 mg by mouth at bedtime. 02/23/2024 Active Active Problems Problem Noted Date Diagnosed [...] often do you attend chur ch or samaritan services? 1 to 4 times per year 04/04/2023 Do you belong to any clubs o r organizations such as voodoo groups, unions, fraternal or athletic groups, or [...] and heating? Not hard at all 04/04/2023 [facility] - Occupational [...] Comments Blood Pressure 107/69 01/10/2024 3:47 PM CLINIC ASSISTANT Pulse 75 01/10/2024 3:47 PM CLINIC ASSISTANT Temperature 36.6 ??C (97.9 ??F) 06/20/2023 12:50 PM C DT Respiratory Rate 16 06/20/2023 1:15 PM CDT Oxygen Saturation 93% 06/20/2023 1:15 PM CDT Inhaled Oxygen Concentration - - Weight 100 kg (221 lb 3.7 oz) 01/10/2024 3:47 PM CLINIC ASSISTANT Height 175.6 cm (5' 9.13) 01/10/2024 3:47 PM CS T Body Mass Index 32.54 01/10/2024 3:47 PM CLINIC ASSISTANT Plan of Treatment Not on file Medical Devices Implanted Type Area Traffic Incident Management Manager Device Identifier Shelf Expiration Date Model / Serial / Lot Lead Cuff Stimulation - [id number] - [id number] Implanted:Qty: 1 on 06/20/2023 by Nitin Gutiérrez M.D., M.S. at [facility] Responsive Neurostimulator Sys Right: Neck [employer] 03/21/2026 4063-45 CM / [id number] / Lead Metal Cleaner Ap Thor Rsp Sns - [id number] - [id number] Implanted:Qty: 1 on 06/20/2023 by Nitin Gutiérrez M.D., M.S. at [facility] Responsive Neurostimulator Sys Right: Chest [employer] 04/11/2026 [id number] / [id number] / Gen Nrstm Sleep Apnea Thor - [id number] - [id number] Implanted:Qty: 1 on 06/20/2023 by Nitin Gutiérrez M.D., M.S. at [facility] Spinal Cord Stimulator Right: Chest [employer] 04/12/2026 3028 / [id number] / Procedures Procedure Name Priority Date/Time Associated Diagnosis Comments [place] HOME SLEEP TEST TYPE GERALDINE 4 Routine 04/04/2024 7:31 AM CDT Apnea Sleep Obstructive EXTI BASIC METABOLIC PANEL, FASTING, S Routine 08/01/2020 7:[address] ABDOMEN PELVIS WITHOUT IV CONTRAST Routine 01/18/2020 10:32 PM CLINIC ASSISTANT from Last 3 Months or Most Recently Relevant to Health Maintenance Results * Home sleep apnea test (HSAT) (04/04/2024 7:31 AM CDT) Narrative ONBASE - 04/05/2024 12:01 PM CDT SUMMARY: WatchPAT testing was performed on Inspire therapy. ??The total recording time was 425 minutes with an estimated total sleep time of 386 minutes with 130 minutes of estimated sleep occurring in the supine position. ?? Signal integrity was generally satisfactory throughout the study. ??The pAHI was 15 events per hour. ??Disordered breathing events were more frequent during, but not exclusive to, estimated sleep in the supine position. ??The mandi oxyhemoglobin saturation was 82% and the mean oxyhemoglobin saturation 89%. ??Sound interpreted as snoring of at least 40 decibel intensity was present during 23% of estimated sleep time. CLINICAL INTERPRETATION: Mild to moderate residual obstructive sleep apnea and borderline sleep related hypoxemia on Inspire therapy. Cody Gutiérrez M.D. SLEEP CENTER ORDERAB LES ONBASE NA from Last 3 Months or Most Recently Relevant to Health Maintenance Advance Directives For more information, please contact: [phone] * Full Code (Latest Code Status on File) Date Activated Date Inactivated Comments 06/20/2023 1:42 PM 06/22/2023 2:04 AM Question Answer Comments Full Code: Discussed Care Teams Melter Supervisor Open Hearth Furnace Relationship Specialty Start Date End Date None Reported, Pcp PCP - General Family Medicine 05/16/23
--- OUTSIDE RECORDS SUMMARY | 2024-05-16 08:10 | XMS_ITS | Encounter Summary ---
Author Organization [facility] Address [address] [place] [address] Care Team Providers Care System Support Technician Name Role Phone None Reported, Pcp Primary Care Provider Unavail able Reason for Referral * Outpatient (Routine) - Authorized Specialty Diagnoses / Procedures Referred By Demetrice steen Referred To Contact Sleep Medicine Cody Gutiérrez M.D. [address] [place] [phone] [facility] Referral ID Status Reason Start Date Expiration Date V isits Requested Visits Authorized [id number] Authorized 04/09/2024 10/09/2025 1 1 Reason for Visit * Outpatient (Routine) - Closed Specialty Diagnoses / Procedures Referred By Demetrice steen Referred To Contact Sleep Medicine Cody Gutiérrez M.D. [address] [place] [phone] [facility] Referral ID Status Reason Start Date Expiration Date Visits Re quested Visits Authorized [id number] Closed 01/11/2024 07/12/2025 1 1 Encounter Details Date Type Department Care Team ([facility] st Contact Info) Description 04/09/2024 9:00 AM CDT Office Visit [facility] in [place], [place] [address] [place] [phone] Cody Gutiérrez M.D. [address] [place] [phone] Apnea Sleep Obstructive (Primary Dx) Social History [...] often do you attend chur ch or advent services? 1 to 4 times per year 04/04/2023 Do you belong to any clubs o r organizations such as religious groups, unions, fraternal or athletic groups, or [...] and heating? Not hard at all 04/04/2023 [facility] of Occupat ional Health - Occupational Stress [...] Progress Notes * Cody Gutiérrez M.D. - 04/09/2024 9:00 AM CDT SUBJECTIVE CHIEF COMPLAINT / REASON FOR VISIT Recheck of hypoglossal nerve stimulator (Inspire) therapy and discussion of latest home sleep apneatest results HISTORY OF PRESENT ILLNESS Mr. Hastings (pronounced [facility]) is a 63 y.o. male with obstructive sleep apnea, PAP intolerance, diabetes mellitus type 2, hyperlipidemia, stroke, GERD, rheumatoid arthritis, major depression, migraines, and obesity who presents for a recheck of Inspire therapy that was implanted on June 20, 2023 and activated on August 01, 2023. The verbal histories were obtained today from the patient and his . During the encounter we reviewed the latest adherence report downloaded from thepatient's Inspire system. At our last visit on January 11, 2024, we reviewed the patient's Inspire fine tune polysomnogram results. The study suggested that a stimulation amplitude of 2.0 volts appeared adequate during lateral decubitus position sleep. A satisfactory stimulation amplitude for supine position sleep was not determined. Up titrating to a stimulation amplitude of 2.0 volts, taking steps to avoid sleeping on the back, and a follow-up home sleep apnea test to assess the efficacy of these maneuvers were recommended. Mr. Hastings has been trying to prop pillows to position him on his sides. However, his , who sleeps in a separate bedroom, notices breakthrough snoring when her rolls onto his back. The patient can not recently recall snorting, choking, or gasping himself awake from sleep at his current Inspire stimulation amplitude of 2.0 volts. He is usually asleep by the time the stimulation kicks in and he denies that it is awakening him during the night. A brief trial of 2.1 volts was not tolerated. Inspire is not associated with dysarthria or dysphagia in the morning. He denies any difficulties with the Inspire surgical incision sites. Bedtime is typically between 10:00 p.m. and 11:00 p.m. and arise time by 7:00 a.m.. For the past several months he has been taking cyclobenzaprine to help with sleep onset. The patient is awakening feeling at least partially refreshed. His [place] Sleepiness Scale score is 9. He denies drowsy driving. He may nap for up to several hours in the mid afternoons. With the help of his diabetes medications, weight is down slightly compared to our last visit. Mr. Hastings is averaging 1 caffeinated beverage per day. No alcohol or tobacco products. The Inspire download indicates that over the period of March 06, 2024 to April 04, 2024 Inspire was used 29 of 30 nights for an average of 7 hours and 33 minutes per night. On 93% of those nights the device was used for at least 4 hours. There were 2.4 therapy pauses, on average, per night. OBJECTIVE VITAL SIGNS Weight: 99 kg PHYSICAL EXAMINATION General: Alert. No acute distress. ENT: Speech is clear. Handling oral secretions well. Tongue protrudes midline to command. Full lateral range of tongue motion demonstrated. No significant oral lesions of note. Skin: Clean, dry, intact, and non erythematous right submandibular surgical incision site. Lungs: Unlabored respirations at rest. Clear per posterior chest auscultation. Heart: Regular rate and rhythm. No significant murmurs or gallops. Extremities: No cyanosis, clubbing, or lower extremity edema. ASSESSMENT / PLAN #1 Obstructive sleep apnea with PAP intolerance-status post hypoglossal nerve stimulator (Inspire) implantation on June 20, 2023 and activation on August 01, 2023 The home sleep apnea test performed on March 04, 2024 with Inspire at a stimulation amplitude of 2.0 volts revealed position predominant obstructive sleep apnea and borderline sleep related hypoxemia. The overall pAHI was 15 events per hour and mean saturation 89%. The supine pAHI was 25 events perhour while the lateral pAHI was under 10 events per hour. I thanked the patient for his excellent Inspire usage. Mr. Hastings feels he is deriving benefitfrom Inspire therapy. We discussed ways to optimize the Inspire experience, including using the ???T-shirt with tennis balls?? concept promote sleep on the sides, further efforts at weight watching,and eliminating the cyclobenzaprine at bedtime. Plan Continue Inspire at a stimulation amplitude of 2.0 volts with a goal of all night, every night use.Mr. Hastings is free to experiment with higher Inspire settings at his discretion. I strongly suggested taking some steps beyond using pillows to maximize lateral decubitus position sleep. Further efforts at weight watching. Discuss with his primary childcare center director eliminating cyclobenzaprine at bedtime. Recheck visit with me in 6 months to assess progress. No test will be prescheduled for that visit. Summary of current Inspire settings: Stimulation range: 1.0-2.0 volts Current stimulation amplitude: 2.0 volts Start delay: 45 minutes Pause time: 15 minutes Maximum therapy duration: 8 hours Stimulation electrode configuration: + - + Total time 30 minutes includes gfrj-iy-cvtj and gii-goax-je-face pre- and post- visit tasks performed on the day of the patient encounter. documented in this encounter Plan of Treatment Scheduled Referrals Name Type Priority Associated Diagnoses Orde r Schedule Sleep Medicine office visit (clinic) Outpatient Referral Routine Expected: 10/10/2024 (Approximate), Expires: 07/10/2025 documented as of this encounter Visit Diagnoses Diagnosis Apnea Sleep Obstructive- Primary documented in this encounter Care Teams System Support Technician Relationship Specialty Start Date End Date None Reported, Pcp PCP - General Family Medicine 05/16/23 documented as of this encounter
--- OUTSIDE RECORDS SUMMARY | 2024-05-16 08:10 | XMS_ITS | Encounter Summary ---
Author Organization [facility] Address [address] [place] [address] Care Team Providers Care Gang Bore Operator Name Role Phone None Reported, Pcp Primary Care Provider Unavail able Reason for Visit * Outpatient (Routine) - Closed Specialty Diagnoses / Procedures Referred By Contac t Referred To Contact Diagnoses Apnea Sleep Obstructive Procedures Home sleep apnea test (HSAT) Cody Gutiérrez M.D. [address] [place] [phone] [facility] Referral ID Status Reason Start Date Expiration Date Visits Re quested Visits Authorized [id number] Closed 01/11/2024 01/10/2025 1 1 Encounter Details Date Type Department Care Team (Latest Contact Info) Description 04/04/2024 7:27 AM CDT - 04/07/2024 11:59 PM CDT Hospital Encounter [facility] in [place], [place] [address] [place] [phone] Cody Gutiérrez M.D. [address] [place] [phone] Discharge Disposition: Home or Self Care Social [...] How often do you attend chur or spiritism services? 1 to 4 times per year 04/04/2023 Do you belong to any clubs o r organizations such as advent groups, unions, fraternal or athletic groups, or [...] and heating? Not hard at all 04/04/2023 [facility] of Occupat ional Health - Occupational Stress [...] place to sleep or slept in a halfway (including now)? No 04/04/2023 Nutrition Answer Date [...] DR tablet Take by mouth daily. 10/11/2008 cyclobenzaprine (FLEXERIL) 10 mg tablet TAKE ONE TABLET BY MOUTH AT BEDTIME NEEDED for muscle spasm* 03/23/2024 ezetimibe-atorvastatin 10-10 mg tablet Take by mouth [...] 40 mg capsule, sprinkle Take by mouth. tamsulosin (FLOMAX) 0.4 mg 24 hr capsule Take 0.4 mg by mouth at bedtime. 02/23/2024 Trulicity 1.5 mg/0.5 mL pen injector injection Inject 0.5 mL (1.5 mg) subcutaneously every week; new dosing once weekly* 10/05/2023 valACYclovir (VALTREX) 1000 mg tablet take 1 tablet by mouth once daily for 5 days as needed for cold sores* 10/19/2023 documented as of this encounter Plan of Treatment Not on file documented as of this encounter Procedures Procedure Name Priority Date/Time Associated Diagnosis Comments MD HOME SLEEP TEST TYPE GERALDINE 4 Routine 04/04/2024 7:31 AM CDT Apnea Sleep Obstructive documented in this encounter Results * Home sleep apnea test (HSAT) (04/04/2024 7:31 AM CDT) Narrative ONBASE - 04/05/2024 12:01 PM CDT SUMMARY: WatchPAT testing was performed on [employer]. ??The total recording time was 425 minutes [...] on filedocumented in this encounter Care Teams Gang Bore Operator Relationship Specialty Start Date End Date None Reported, Pcp PCP - General Family Medicine 05/16/23 documented as of this encounter
--- OUTSIDE RECORDS SUMMARY | 2024-05-16 08:10 | XMS_ITS ---
Author Organization [facility] Address [address] [place] [address] Care Team Providers Care Loan Auditor Name Role Phone Unavailable Unavailable Unavailable Surgery Details Not on file Complications Check Surgery Details section. Procedure Estimated Blood Loss Check Surgery Details section. Procedure Findings Check Surgery Details section. Procedure Specimens Taken Check Surgery Details section.
--- OUTSIDE RECORDS SUMMARY | 2024-05-16 08:10 | XMS_ITS | Clinical Summary ---
Author Organization [facility] Address [address] [place] [address] Care Team Providers Care Digital Marketing Officer Name Role Phone None Reported, Pcp Primary Care Provider Unavail able Source Comments Patient records contain information from all sites at [facility]. For routine questions regarding patient records, call [phone] during business hours, M-F 8:00 AM - 5:00 PM Central Time. Record requests for emergency care only can be directed to [phone] at any time.[facility] Allergies No known active allergies Medications Medication [...] Office Visit [facility] in [place], [place] [address] [place] [address] Cody Gutiérrez M.D. Apnea Sleep Obstructive (Primary Dx) 04/04/2024 7:27 AM CDT - 04/07/2024 11:59 PM CDT Hospital Encounter [facility] in [place], [place] [address] [place] [phone] Cody Gutiérrez M.D. Discharge Disposition: Home or Self Care from Last 3 Months Social History Tobacco [...] often do you attend chur ch or jain services? 1 to 4 times per year [...] and heating? Not hard at all 04/04/2023 [facility] of Occupat ional Health - [...] to sleep or slept in a senior care (including now)? No 04/04/2023 Nutrition Answer Date [...] Comments Blood Pressure 107/69 01/10/2024 3:47 PM LEGAL WORD PROCESSOR Pulse 75 01/10/2024 3:47 PM LEGAL WORD PROCESSOR Temperature 36.6 ??C (97.9 ??F) 06/20/2023 12:50 PM C DT Respiratory Rate 16 06/20/2023 1:15 PM CDT Oxygen Saturation 93% 06/20/2023 1:15 PM CDT Inhaled Oxygen Concentration - - Weight 100 kg (221 lb 3.7 oz) 01/10/2024 3:47 PM LEGAL WORD PROCESSOR Height 175.6 cm (5' 9.13) 01/10/2024 3:47 PM CS T Body Mass Index 32.54 01/10/2024 3:47 PM LEGAL WORD PROCESSOR Plan of Treatment Health Maintenance Due Date Last Done Comments CT Colonography 1960 Cologuard 1960 Diabetic Office Visit with F oot Exam 1960 Dilated Eye Exam 1960 FIT 1960 HIV Screening 1960 Hemoglobin A1C 1960 Hepatitis C Screening 1960 Lipid (Cholesterol) Screening 1960 Urine Albumin 1960 Visit: Chronic Disease, age 18+ 1958 Visit: Medicare Annual Wellness 1960 Colonoscopy 01/13/2016 01/13/2006 Colorectal Cancer Screening 01/13/2016 Hepatitis B Vaccines (1 of 3 - [...] history exists Medical Devices Implanted Type Area Cash Applications Clerk Device Identifier Shelf Expiration Date Model / Serial / Lot Lead Cuff Stimulation - [id number] - [id number] Implanted:Qty: 1 on 06/20/2023 by Nitin Gutiérrez M.D., M.S. at [facility] Responsive Neurostimulator Sys Right: Neck [employer] 03/21/2026 4063-45 CM / [id number] / Lead Director Economic Ap Thor Rsp Sns - [id number] - [id number] Implanted:Qty: 1 on 06/20/2023 by Nitin Gutiérrez M.D., M.S. at [facility] Responsive Neurostimulator Sys Right: Chest [employer] 04/11/2026 [id number] / [id number] / Gen Nrstm Sleep Apnea Thor - [id number] - [id number] Implanted:Qty: 1 on 06/20/2023 by Nitin Gutiérrez M.D., M.S. at [facility] Spinal Cord Stimulator Right: Chest [employer] 04/12/2026 3028 / [id number] / Procedures Procedure Name Priority Date/Time Associated Diagnosis Comments [place] HOME SLEEP TEST TYPE GERALDINE 4 Routine 04/04/2024 7:31 AM CDT Apnea Sleep Obstructive EXTI BASIC METABOLIC PANEL, FASTING, S Routine 08/01/2020 7:[address] ABDOMEN PELVIS WITHOUT IV CONTRAST Routine 01/18/2020 10:32 PM LEGAL WORD PROCESSOR from Last 3 Months or Most Recently Relevant to Health Maintenance Results * Home sleep apnea test (HSAT) (04/04/2024 7:31 AM CDT) Narrative ONBASE - 04/05/2024 12:01 PM CDT SUMMARY: WatchPAT testing was performed on [employer]. ??The total recording time was 425 minutes [...] Advance Directives For more information, please contact: [phone] * Full Code (Latest Code Status on File) Date Activated Date Inactivated Comments 06/20/2023 1:42 PM 06/22/2023 2:04 AM Question Answer Comments Full Code: Discussed Care Teams Digital Marketing Officer Relationship Specialty Start Date End Date None Reported, Pcp PCP - General Family Medicine 05/16/23
--- OUTSIDE RECORDS SUMMARY | 2024-05-16 08:11 | XMS_ITS | Clinical Summary ---
Author Organization [facility] Address [place], [place] [address] Care Team Providers Care Vehicle Service Agent Name Role Phone None Primary Care Provider [...] Influenza for age 65+ 07/22/2024 Care Teams Vehicle Service Agent Relationship Specialty Start Date End Date None . PCP - General 02/09/18
--- OUTSIDE RECORDS SUMMARY | 2024-05-16 08:11 | XMS_ITS | Clinical Summary ---
Author Organization [facility] Address [address] [place] [address]. 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 COLONOSCOPY Routine 01/13/2006 9:15 AM RETURNED GOODS REPAIRER from Last 3 Months or Most Recently Relevant to Health Maintenance Results * (ABNORMAL) Basic metabolic panel (08/01/2020 7:34 PM CDT) Sodium 141 133 - 144 mmol/L 08/01/2020 8:08 PM [facility] Potassium 4.0 3.4 - 5.3 mmol/L 08/01/2020 8:08 PM [facility] Chloride 109 94 - 109 mmol/L 08/01/2020 8:08 PM [facility] Carbon Dioxide 26 20 - 32 mmol/L 08/01/2020 8:16 PM [facility] Anion Gap 6 3 - 14 mmol/L 08/01/2020 8:16 PM [facility] Glucose 94 70 - 99 mg/dL 08/01/2020 8:16 PM [facility] Urea Nitrogen 14 7 - 30 mg/dL 08/01/2020 8:16 PM [facility] Creatinine 1.01 0.66 - 1.25 mg/dL 08/01/2020 8:16 PM [facility] GFR Estimate 79 >60 mL/min/{1. 73_m2} 08/01/2020 8:16 PM [facility] Comment: Non GFR Calc Starting 11/07/2018, serum creatinine based estimated GFR (eGFR) will be calculated using the Chronic Kidney Disease Epidemiology Collaboration (CKD-EPI) equation. GFR Estimate If Black >90 >60 mL/min/{1. 73_m2} 08/01/2020 8:16 PM CDT [facility] Comment: GFR Calc Starting 11/07/2018, serum creatinine based estimated GFR (eGFR) will be calculated using the Chronic Kidney Disease Epidemiology Collaboration (CKD-EPI) equation. 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 Procedure Date: 01/13/2006 9:15 AM ? Date of : 1960 ?Age: 45 ? Admit Type: Outpatient ? Attending MD: Mango Mayre ? Procedure: ?Colonoscopy Indications: ?Abdominal distress/pain in [...] oxygen saturations were monitored ?continuously. The [id number] #[id number] was introduced through ?the anus and advanced [...] primary care provider PRN. ? CPT Code(s): ?07938, Colonoscopy, flexible, proximal to splenic flexure; ?with removal of tumor(s), polyp(s), or other lesion(s) by hot ?biopsy forceps or bipolar cautery ICD Code(s): ?211.3, Benign Neoplasm of Colon ?789.04, Abdominal Pain, Left Lower Quadrant The codes documented in this report are preliminary and upon sugar mixer review may be revised to meet current compliance requirements. Chinyere Mayer M.D Mango Mayer MD Signed Date: 01/13/2006 9:56 AM Number of Addenda: 0 I was physically present for the entire viewing portion of the exam. 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
--- OUTSIDE RECORDS SUMMARY | 2024-05-16 08:11 | XMS_ITS | Encounter Summary ---
Author Organization [facility] Address [address] [place] [address]. [place] [address] Care Team Providers Care Green Hide Inspector Name Role Phone Carmita German MD Primary Care Provider Lucero Fraire MD Primary Care Provider [phone] Encounter Details Date Type Department Care Team (Late st Contact Info) Description 11/06/2010 Office Visit-[facility] [address] [place] [address] Timothy Mcgraw MD [address] [facility] [address] [place] [address] Social History Tobacco Use Types Packs/Day Years Used Date Smoking Tobacco: Never Assessed Sex and Gender Information Value Date Recorded Sex Assigned at Not on file Gender Identity Not on file Sexual Orientation Not on file documented as of this encounter Progress Notes * Timothy Mcgraw MD - 11/25/2010 4:47 PM CST Progress Note Created by: Timothy Mcgraw M.D. [id number] DATE: 11/06/2010 SHASHANK HASTINGS DATE OF : 1960 AGE: [age] years old Referring Physician: CARMITA GERMAN Referring Clinic: [facility] CURRENT DIAGNOSES 1. - Abnormal EKG, 794.31 ALLERGIES NKDA MEDICATIONS (prior to changes made today) 1. Aspirin 81 mg Tablet, 1 p.o. daily 2. Simvastatin 80 mg Tablet, 1 p.o. daily 3. Nexium 40 mg Capsule, Delayed Release(E.C.), 1 p.o. daily 4. Lunesta 2 mg Tablet, 1 p.o. PRN as Directed 5. Nasonex 50 mcg/Actuation [place], Non-Aerosol, 1 p.o. PRN as Directed 6. [...] loss of sensation. He received thrombolysis at [facility]. I do not have complete records although [...] exercises regularly and gym member; Occupation - [employer]; Residence - lives in [place] year round; Place of - [place]; REVIEW OF SYSTEMS GENERAL feels well, no [...] PRN as Directed, #0 Nasonex 50 mcg/Actuation [place], Non-Aerosol, 1 p.o. PRN as Directed, #0 [...] on filedocumented in this encounter Care Teams Green Hide Inspector Relationship Specialty Start Date End Date Carmita German MD [address] [place] [phone] PCP - General Family Practice 10/21/11 12/21/16 Lucero Fraire MD [place] [address] [address], [place] [address] PCP - General 10/20/17 documented as of this encounter
--- OUTSIDE RECORDS SUMMARY | 2024-05-16 08:11 | XMS_ITS | Clinical Summary ---
Author Organization [facility] Address [address] [place] [address] Care Team Providers Care Wildland Fire Fighter Specialist Name Role Phone Lucero Fraire MD Primary Care Provider Source Comments You are receiving this document as you are listed as the primary care provider,follow-up provider, or the patient has been referred to you for consultation.This is in compliance with the Medicare and[facility] Cent[facility] EHR Incentive Program,which states Providers who transition their patient to another setting of careor provider of care or refers their patient to another provider of care shouldprovide summary care record for each transition of care or referral. TeamSnap Allergies No known active allergies Medications Medication [...] this topic Medical Devices Implanted Type Area Dixonac Operator Device Identifier Shelf Expiration Date Model / Serial / Lot Bone Putty Atiya Dbm 1cc - [id number] Implanted:Qty : 1 on 09/27/2016 by Kameron Morales MD at [facility] Left: LEG [employer] - [employer] 09/23/2018 [id number] / [id number] / 0 Description:For fusion of pr oximal tibial and fibula fracture Scr Canc Lg Hex 6.5x70 32-Thrd - [id number] Implanted:Qty : 2 on 09/27/2016 by Kameron Morales MD at [facility] Left: LEG [employer] [id number] / 0 / 0 Washer Lg Scr 13.0mm Od - [id number] Implanted:Qty : 2 on 09/27/2016 by Kameron Morales MD at [facility] Left: LEG [employer] [id number] / 0 / 0 Advance Directives * Full Code (Latest Code Status on File) Date Activated Date Inactivated Comments 08/08/2017 1:07 PM 08/08/2017 5:07 PM Full code in effect for 30 days * Full Code Date Activated Date Inactivated Comments 09/27/2016 10:03 AM 09/27/2016 1:23 PM Full code i n effect for 30 days Care Teams Wildland Fire Fighter Specialist Relationship Specialty Start Date End Date Lucero Fraire MD [address] [place] [address] PCP - General 12/03/15
--- OUTSIDE RECORDS SUMMARY | 2024-05-16 08:11 | XMS_ITS | Continuity of Care Document ---
Author Organization [facility] Address [address] [place] [address] Phone Care Team Providers Care Senior Data Quality Analyst Name Role Phone Unavailable Unavailable Unavailable Allergies, [...] - Active Procedures Procedure Date Office[place]Out[place] [facility] [place] Test Name Date and Time Measure Units Reference Range Abnormal Flag Status Comments Panel Description: Transfora judd Rkltmey-Ffwxlo-Zgqdxpyjrjzibf (TRANSLUMNONPART) Unknown TRANSLUMNONPART 17:15:59 (See Attached Document) Unknown (See Attached Document) Panel Description: Transfora judd Dbccqgb-Lprhth-Wlytglbejyrvtd (TRANSLUMNONPART) Unknown Image Transforaminal Mlpvgob-Vjkcxw-A onparti Advance Directives Directive Yes / No Effective Date File Name No Information Encounters Encounter Description Practice Location Reason(s) For Visit Diagnoses Date Provider Providers Copied on Encounter [facility], [address], [place], [place], [id number], tel:[phone] [facility] [place] No Information No Information Office/Outpat ient Visit,New, [facility], [address], [place], [id number], [place] tel:[phone] [facility] [place] Radiculopath y, lumbar region No Information Family History Family Member Type Diagnosis Age At Onset No Information Payers Payer name Insurance type Covered libertarian ID Authoriza tion(s) Medicare [id number] For Life/Retired Bunny [id number] Social History Type Description Quantity Date Captured [...]
--- OUTSIDE RECORDS SUMMARY | 2024-05-16 08:11 | XMS_ITS | Encounter Summary ---
Author Organization [facility] Address [address] [place] [address] Care Team Providers Care Lead Machinist Name Role Phone Lucero Fraire MD Primary Care Provider [phone] Encounter Details Date Type Department Care Team (Late st Contact Info) Description 07/08/2016 Orders Only [facility] [address] [place] [id number] Kameron Morales MD [address] [place] [address] Post-traumatic osteoarthritis of left knee Social History [...] leg documented in this encounter Care Teams Lead Machinist Relationship Specialty Start Date End Date Lucero Fraire MD [address] [place] [address] PCP - General 12/03/15 documented as of this encounter
--- OUTSIDE RECORDS SUMMARY | 2024-05-16 08:11 | XMS_ITS | Referral Summary ---
Author Organization [facility] Address [address] [place] [address]. [place] [address] Care Team Providers Care Retail Furniture Sales Name Role Phone Lucero Fraire MD Primary Care Provider [phone] Allergies No known active allergies Medications Medication [...] CDT LIPID PROFILE Routine 12/06/2007 4:00 AM [facility] COLONOSCOPY Routine 01/13/2006 9:15 AM [facility] from Last 3 Months or Most Recently Relevant to Health Maintenance Results * (ABNORMAL) Basic metabolic panel (08/01/2020 7:34 PM CDT) Sodium 141 133 - 144 mmol/L 08/01/2020 8:08 PM [facility] Potassium 4.0 3.4 - 5.3 mmol/L 08/01/2020 8:08 PM [facility] Chloride 109 94 - 109 mmol/L 08/01/2020 8:08 PM [facility] Carbon Dioxide 26 20 - 32 mmol/L 08/01/2020 8:16 PM [facility] Anion Gap 6 3 - 14 mmol/L 08/01/2020 8:16 PM [facility] Glucose 94 70 - 99 mg/dL 08/01/2020 8:16 PM [facility] Urea Nitrogen 14 7 - 30 mg/dL 08/01/2020 8:16 PM [facility] Creatinine 1.01 0.66 - 1.25 mg/dL 08/01/2020 8:16 PM [facility] GFR Estimate 79 >60 mL/min/{1. 73_m2} 08/01/2020 8:16 PM [facility] Comment: Non GFR Calc Starting 11/07/2018, serum creatinine based estimated GFR (eGFR) will be calculated using the Chronic Kidney Disease Epidemiology Collaboration (CKD-EPI) equation. GFR Estimate If Black >90 >60 mL/min/{1. 73_m2} 08/01/2020 8:16 PM CDT [facility] Comment: GFR Calc Starting 11/07/2018, serum creatinine based estimated GFR (eGFR) will be calculated using the Chronic Kidney Disease Epidemiology Collaboration (CKD-EPI) equation. Calcium 8.3(L) 8.5 - 10.1 mg/dL 08/01/2020 8:16 PM CDT [facility] Blood specimen (specimen) 08/01/2020 7:34 PM CDT 08/01/2020 7:52 PM CDT Jarod Rubin MD LAB - BLOOD [facility]ORIS [facility] [address] [phone] * (ABNORMAL) Lipid panel (12/06/2007 4:00 AM [facility]) Cholesterol 205(H) 0 - 200 mg/dL MISYS [...] 0.0 - 5.0 MISYS 12/06/2007 4:00 AM [facility] 12/06/2007 4:11 AM [facility] Kyle Laughlin MD LAB - BLOOD ORDER TERESA MISYS * COLONOSCOPY (01/13/2006 9:15 AM [facility]) COLONOSCOPY Endoscopy Patient Name: Shashank Hastings ?Gender: [...] oxygen saturations were monitored ?continuously. The [id number] #[id number] was introduced through ?the anus and advanced [...] primary care provider PRN. ? CPT Code(s): ?44149, Colonoscopy, flexible, proximal to splenic flexure; ?with removal of tumor(s), polyp(s), or other lesion(s) by hot ?biopsy forceps or bipolar cautery ICD Code(s): ?211.3, Benign Neoplasm of Colon ?789.04, Abdominal Pain, Left Lower Quadrant The codes documented in this report are preliminary and upon machine setter sheet metal review may be revised to meet current compliance requirements. Chinyere Mayer M.D Mango Mayer MD Signed Date: 01/13/2006 9:56 AM Number of Addenda: 0 I was physically present for the entire viewing portion of the exam. Note generated on 01/13/2006 9:14 AM RADIOLOGY RESULTS COLONOSCOPY RADIOLOG Y RESULTS 01/13/2006 9:15 AM [facility] Mango Mayer MD PROCEDURES RADIOLOGY RESULTS from Last 3 Months or Most Recently Relevant to Health Maintenance Care Teams Retail Furniture Sales Relationship Specialty Start Date End Date Lucero Fraire MD [facility] [address], [place] [address] PCP - General 10/20/17
== END 2024-05-16 08:07 | disposition home or self-care (01) ==
PROVIDERS: PCP Physician Assistant Medical; Visit Provider Physician Assistant Medical
DX: R79.89 Other specified abnormal findings of blood chemistry (principal); R53.83 Other fatigue; E11.9 Type 2 diabetes mellitus without complications
CPT/HCPCS: 82306; 82607; 84270; 84402; 84403; 84443

== ENCOUNTER 2024-08-30 09:48 | Emergency (ER) | payer MEDICARE, OTHER, SELFPAY ==
[2024-08-30 09:50] VITALS: BP 133/83; PULSE 69; RESP 18; TEMP 35.8; O2SAT 97; BMI 33.5
--- NOTE | 2024-08-30 10:42 | CT_ITS ---
Patient: RAÚL MTZ Facility:?[facility] Patient ID:?[id number] Site Patient ID:?[id number]. Site :?[id number] Study:?CT-Head W/O-08/30/2024 10:55:25 AM Ordering Physician:Phuc Ennis Final Report: INDICATION: Paresthesias TECHNIQUE: CT head without contrast. COMPARISON: CT brain March 2023 and MRI brain March 2023 FINDINGS: Small encephalomalacia insula and frontal in the right operculum. No new areas of fernandez-white matter loss. No acute hemorrhage. The ventricles are of normal caliber. No midline shift. Skull base and calvarium: The visualized paranasal sinuses and mastoid air cells demonstrate no acute or significant findings. The visualized orbits are grossly unremarkable. No skull fractures. IMPRESSION: Chronic changes without acute intracranial abnormality. Please note that all CT scans at this facility use dose modulation, iterative reconstruction, and/or weight-based dosing when appropriate to reduce radiation dose to as low as reasonably achievable. Dictated by Abbi Marsh MD @ 08/30/2024 11:16:44 AM Signed by:?Abbi Marsh MD @08/30/2024 11:16:44 AM (Electronic Signature)
--- NOTE | 2024-08-30 10:48 | ED_ITS ---
HPI - General Adult General Chief complaint: Neuro Symptoms/Altered Deficit Stated complaint: c/o of stroke symptoms, stroke in 2007 Time Seen by Provider: 08/30/24 10:30 History of Present Illness HPI narrative: This 63-year-old male comes in reporting some tingling sensation behind his right ear and on the right side of his face. These symptoms began yesterday morning upon awakening. He states that he does have a headache on the right side of his head. He does have a remote history of a stroke with some residual left-sided weakness. He normally ambulates with a cane. He can ambulate normally and does not report any new weakness. He has not had any speech change. He states that if he squeezes the right mid part of his abdomen he feels that the altered sensation intensifies behind his right ear. He arrives here with normal vital signs. He does take a baby aspirin daily. With his previous stroke he did have a thrombectomy with a subsequent bleed. He has been stable for years after this occurrence. Related Data Home Medications ?Medication ?Instructions ?Recorded ?Confirmed blood-glucose meter (Accu-Chek #1 ea 06/28/22 05/16/24 Guide Glucose Meter) aspirin 81 mg tablet,delayed 81 mg PO QDAY 07/07/22 05/16/24 release (Adult Low Dose Aspirin) Previous Rx's ?Medication ?Instructions ?Recorded clindamycin phosphate 1 % topical 1 applic topical QDAY #60 mL 09/23/22 solution lancets (Accu-Chek Softclix #100 ea 05/26/23 Lancets) ezetimibe 10 mg tablet 10 mg PO QDAY #90 tabs 11/01/23 fluoxetine 20 mg capsule 20 - 40 mg (1 - 2 x 20 mg) PO 11/01/23 DAILY for depressive disorder #90 caps pantoprazole 40 mg tablet,delayed 40 mg PO QDAY #90 tabs 11/01/23 release meloxicam 7.5 mg tablet 7.5 mg PO BID #180 tabs 11/03/23 sucralfate 1 gram tablet (Carafate) 1 g PO Q4H PRN GERD #360 tabs 11/09/23 fluticasone propionate 50 1 spray intranasal BID #16 grams 11/10/23 mcg/actuation nasal spray,suspension propranolol 60 mg capsule,24 60 mg PO QDAY #90 caps 11/16/23 hr,extended release blood sugar diagnostic (FreeStyle #100 ea 02/02/24 Lite Strips) tamsulosin 0.4 mg capsule (Flomax) 0.4 mg PO QHS #90 caps 02/23/24 cyclobenzaprine 10 mg tablet 10 mg PO .hs muscle spasm #30 tabs 03/23/24 valacyclovir 1 gram tablet 1,000 mg PO .PRN 5 days #15 tabs 04/06/24 pregabalin 50 mg capsule 50 mg PO TID #270 caps 04/18/24 dulaglutide 1.5 mg/0.5 mL 1.5 mg (0.5 mL) subcut QWEEK #6 mL 05/16/24 subcutaneous pen injector (Trulicity) testosterone 1.62 % (40.5 mg/2.5 0.5 packet topical QAM #75 grams 06/06/24 gram) transdermal gel packet (AndroGel) metformin 500 mg tablet,extended 2,000 mg (4 x 500 mg) PO QDAY #360 08/03/24 release 24 hr tabs rosuvastatin 40 mg tablet 40 mg PO QDAY #90 tabs 08/06/24 Allergies Allergy/AdvReac Type Severity Reaction Status Date / Time No Known Drug Allergies Allergy Verified 05/16/24 07:56 Review of Systems Status of ROS: Reports: 10 or more systems reviewed and unremarkable except as noted in History and below Narrative: Constitutional: No fevers, no weight gain or loss. Eyes: No discharge. No vision changes. HENT: No congestion, no sore throat, no ear pain. Cardiovascular: No chest pain, no palpitations. Respiratory: No shortness of breath, no wheezes, no cough. Gastrointestinal: No abdominal pain, no vomiting, no diarrhea. Genitourinary: No dysuria, no hematuria. Musculoskeletal: Normal range of motion. Skin: No rashes, no pruritis. Neurological: No dizziness, weakness, speech change. Sensory change as described above. Endo/Heme/Allergies: No bruising or bleeding. No polydipsia. Pysch: no suicidality, no anxiety, no insomnia. All other systems reviewed and are negative. [facility] Medical History (Updated 08/30/24 @ 12:22 by Raymon Wick MD) BPH loc w urin obs/LUTS ?N40.1 - Benign prostatic hyperplasia with lower urinary tract symptoms (ICD- 10) Tick bite of back ?S30.860A - Insect bite (nonvenomous) of lower back and pelvis, initial encounter (ICD-10) ?W57.XXXA - Bitten or stung by nonvenomous insect and other nonvenomous arthropods, initial encounter (ICD-10) Chronic headaches ?R51.9 - Headache, unspecified (ICD-10) ?G89.29 - Other chronic pain (ICD-10) Fatigue ?R53.83 - Other fatigue (ICD-10) Chronic pain of left lower extremity ?M79.605 - Pain in left leg (ICD-10) ?G89.29 - Other chronic pain (ICD-10) Depression ?F32.A - Depression, unspecified (ICD-10) Cat bite of finger ?S61.259A - Open bite of unspecified finger without damage to nail, initial encounter (ICD-10) ?W55.01XA - Bitten by cat, initial encounter (ICD-10) Right bundle branch block ?I45.10 - Unspecified right bundle-branch block (ICD-10) Obstructive sleep apnea syndrome (03/11/15) ?G47.33 - Obstructive sleep apnea (adult) (pediatric) (ICD-10) History of stroke ?Z86.73 - Personal history of transient ischemic attack (TIA), and cerebral infarction without residual deficits (ICD-10) GERD (gastroesophageal reflux disease) ?K21.9 - Gastro-esophageal reflux disease without esophagitis (ICD-10) COVID-19 ?U07.1 - COVID-19 (ICD-10) Surgical History History of splenectomy ?Z90.81 - Acquired absence of spleen (ICD-10) History of cholecystectomy ?Z90.49 - Acquired absence of other specified parts of digestive tract (ICD- 10) Family History (Updated 03/21/23 @ 21:05 by Shashank Reid MD) Other Stroke Social History (Updated 03/21/23 @ 21:05 by Shashank Reid MD) Narrative: Patient lives with his . Retired. Alcohol abuse- sobriety since 2007 Highest level of school completed/degree received: GED or equivalent Smoking Status: Former smoker What tobacco products do you use: cigarettes Smoking quit date/years: >15 years ago Do you use any of these nicotine containing products: None Nicotine containing products detail: Smoked cigarettes from [age]yrs Second hand tobacco smoke exposure: No How often do you have a drink containing alcohol: never How often do you have six or more drinks on one occasion: Never AUDIT-C Alcohol total score: 0 Non-prescribed substance use: denies use Caffeine: Yes (1-2 cups/day) Little interest or pleasure in doing things: several days Feeling down, depressed, or hopeless: several days service: No Exam Narrative: Exam Narrative: Constitutional: Well-developed, well-nourished, no acute distress. HEENT: Normocephalic, atraumatic. Neck: Normal range of motion. Nontender. Supple. Heart: Regular. No murmurs. Normal rate. Intact distal pulses. Lungs: Clear to auscultation. No chest discomfort. No wheezes, rhonchi, or rales. Abdomen: Normal bowel sounds. Nontender. No rebound tenderness. Genitalia: Deferred. Back: No midline tenderness. Normal range of motion. Extremities: Normal range of motion. No injury. Skin: Intact. No rash. Warm. No erythema or pallor. Neurologic: No altered sensation. No weakness. Alert and oriented. No facial asymmetry. Tongue is midline. Tomrft-xx-fcux is normal. No pronator drift. Wedding Planner strength is equal bilaterally. Able to raise each leg from the bed. Psychiatric: No suicidality. No anxiety or depression. No insomnia. Nursing notes and vitals signs are reviewed. Const: Vital Signs, click to edit/add: Vital Signs - 24 hr 08/30/24 09:50 08/30/24 11:00 Temperature 96.5 F L Pulse Rate 68 Pulse Rate [Pulse Oximeter] 69 Respiratory Rate 18 18 Blood Pressure 120/72 Blood Pressure [Ri ght Upper Arm] 133/83 Pulse Oximetry 97 98 Oxygen Delivery Me thod Room Air Room Air Course Vital Signs Vital signs: Initial Vital Signs Temperature 96.5 F L 08/30/24 09:50 Temperature Source Temporal Artery Scan 08/30/24 09:50 Pulse Rate 69 08/30/24 09:50 Pulse Rhythm Regular 08/30/24 09:50 Respiratory Rate 18 08/30/24 09:50 Blood Pressure 133/83 08/30/24 09:50 Blood Pressure Mean 99 08/30/24 09:50 Blood Pressure Position Sitting 08/30/24 09:50 Pulse Oximetry 97 08/30/24 09:50 Oxygen Delivery Method Room Air 08/30/24 09:50 Vital Signs Temperature 96.5 F L 08/30/24 09:50 Pulse Rate 69 08/30/24 09:50 Respiratory Rate 18 08/30/24 09:50 Blood Pressure 133/83 08/30/24 09:50 Pulse Oximetry 97 08/30/24 09:50 Oxygen Delivery Method Room Air 08/30/24 09:50 Temperature 96.5 F L 08/30/24 09:50 Pulse Rate 68 08/30/24 11:00 Respiratory Rate 18 08/30/24 11:00 Blood Pressure 120/72 08/30/24 11:00 Pulse Oximetry 98 08/30/24 11:00 Oxygen Delivery Method Room Air 08/30/24 11:00 Medical Decision Making MDM Narrative Medical decision making narrative: This 63-year-old male comes in reporting some altered sensation as described above. This began yesterday morning. She does not have any neurologic deficits on exam. I did do CT scan of his head and checked labs and these all returned with reassuring findings. The patient does report a headache on the right side of his head which is not severe. Throughout his stay here he continues to have normal exam with no observable symptoms. His symptoms are sensation only. He does have a prior history of stroke with some left-sided residual affects. But he is able to ambulate normally and does not show any left-sided weakness on exam. If he is reassured with these findings and is okay to be discharged home. He is taking a baby aspirin daily. I did administer an oral dose of dexamethasone 10 mg. He understands that his blood glucose will increase as results of this 1 time treatment. Lab Data Labs: Lab Results 08/30/24 Range/Units 11:10 WBC 10.01 (4.50-11.00) K/uL RBC 5.22 (4.30-5.90) m/uL Hgb 15.3 (13.5-17.5) gm/dL Hct 47.2 (37.0-53.0) % MCV 90 (80-100) fL MCH 29 (26-34) pg MCHC 32 (32-36) gm/dL RDW Coeff of Toy 14.3 (11.5-15.5) % Plt Count 280 (140-440) K/uL Neut % (Auto) 37.6 L (42.0-72.0) % Lymph % (Auto) 45.9 H (20-44) % [place] % (Auto) 10.3 (0.0-11.0) % Eos % (Auto) 5.3 (0.0-7.0) % Baso % (Auto) 0.7 (0.0-3.0) % Neut # (Auto) 3.80 (1.7-7.0) K/uL Lymph # (Auto) 4.60 H (0.90-2.90) K/uL [place] # (Auto) 1.00 H (0.00-0.90) K/UL Eos # (Auto) 0.53 H (0.00-0.50) K/uL Baso # (Auto) 0.07 (0.00-0.30) K/uL Abs Immat Gran (auto) 0.02 (0.00-0.30) K/uL Imm/Tot Granulo (auto) 0.2 % Sodium 138 (135-149) mmol/L Potassium 4.8 (3.6-5.1) mmol/L Chloride 107 (96-114) mmol/L Carbon Dioxide 25 (20-32) mmol/L Anion Gap 6 L (7-15) mEq/L BUN 14 (7-30) mg/dL Creatinine 0.8 (0.5-1.5) mg/dL Estimated Creat Clear 71.25 Estimated GFR 98 ml/min Glucose 139 H (60-115) mg/dL Calcium 9.3 (8.4-10.6) mg/dL Imaging Data CT scan - head: Radiologist's impression: Chronic changes without acute intracranial abnormality. Discharge Plan Discharge Clinical Impression: Paresthesias Patient Disposition: Home, Self-Care Condition: Stable Additional Instructions: Continue current plans. Follow up with MD return if worsening symptoms occur. Prescriptions: No Action (DME) blood-glucose meter [Accu-Chek Guide Glucose Meter] Misc See Rx Instructions .ROUTE .MEDSUPPLY Qty: 1 Patient Comments: USE TO CHECK GLUCOSE ONCE DAILY Rx Instructions: As directed aspirin [Adult Low Dose Aspirin] 81 mg tablet,delayed release (DR/EC) 81 mg PO QDAY clindamycin phosphate 1 % solution 1 applic topical QDAY Qty: 60 1RF tamsulosin [Flomax] 0.4 mg capsule 0.4 mg PO QHS Qty: 90 1RF Trulicity 1.5 mg/0.5 mL pen injector 1.5 mg subcut QWEEK Qty: 6 2RF Rx Instructions: once weekly (DME) lancets [Accu-Chek Softclix Lancets] Misc See Rx Instructions .ROUTE .MEDSUPPLY Qty: 100 3RF Rx Instructions: Once daily and as needed for hypoglycemia events fluoxetine 20 mg capsule 20 - 40 mg PO DAILY Qty: 90 3RF pantoprazole 40 mg tablet,delayed release (DR/EC) 40 mg PO QDAY Qty: 90 3RF Patient Comments: TAKE 1 TABLET BY MOUTH DAILY Rx Instructions: for acid reflux ezetimibe 10 mg tablet 10 mg PO QDAY Qty: 90 3RF Rx Instructions: once daily for cholesterol meloxicam 7.5 mg tablet 7.5 mg PO BID Qty: 180 1RF Rx Instructions: 1 tablet twice daily for pain with food sucralfate [Carafate] 1 gram tablet 1 g PO Q4H PRN (Reason: GERD) Qty: 360 1RF Rx Instructions: Take 1 tablet every 4 hours as needed max use: 4 times per day for acid reflux fluticasone propionate 50 mcg/actuation spray,suspension 1 spray intranasal BID Qty: 16 2RF propranolol 60 mg capsule,extended release 24 hr 60 mg PO QDAY Qty: 90 3RF Rx Instructions: once daily for headache prevention (DME) FreeStyle Lite Strips Strip See Rx Instructions .Route Qty: 100 3RF Rx Instructions: once daily cyclobenzaprine 10 mg tablet 10 mg PO .hs Qty: 30 2RF valacyclovir 1 gram tablet 1,000 mg PO .PRN 5 Days Qty: 15 3RF Rx Instructions: one tablet once daily x 5 days as needed for cold sore outbreaks provided 3 episode supply pregabalin 50 mg capsule 50 mg PO TID Qty: 270 0RF Rx Instructions: 1 capsule 3 times daily testosterone [AndroGel] 1.62 % (40.5 mg/2.5 gram) gel in packet 0.5 packet topical QAM Qty: 75 2RF Rx Instructions: massage 1/2 packet per day to shoulder upper arms for 2 months metformin 500 mg tablet extended release 24 hr 2,000 mg PO QDAY Qty: 360 1RF Rx Instructions: 4 tablets once daily for diabetes rosuvastatin 40 mg tablet 40 mg PO QDAY Qty: 90 3RF Rx Instructions: once daily for cholesterol Follow Up/Referrals: Kassandra Marshall PA-C [Primary Care Provider] - Stand Alone Forms: [facility] Info Instructions
--- OUTSIDE RECORDS SUMMARY | 2024-08-30 10:53 | XMS_ITS ---
Author Organization [facility] Address [address] [place] [address] Care Team Providers Care Capture Manager Name Role Phone Unavailable Unavailable Unavailable Surgery Details Not on file Complications Check Surgery Details section. Procedure Estimated Blood Loss Check Surgery Details section. Procedure Findings Check Surgery Details section. Procedure Specimens Taken Check Surgery Details section.
--- OUTSIDE RECORDS SUMMARY | 2024-08-30 10:53 | XMS_ITS | Clinical Summary ---
Author Organization [facility] Address [address] [place] [address] Care Team Providers Care Visual Design Lead Name Role Phone None Reported, Pcp Primary Care Provider Unavail able Source Comments Patient records contain information from all sites at [facility]. For routine questions regarding patient records, call [phone] during business hours, M-F 8:00 AM - 5:00 PM Central Time. Record requests for emergency care only can be directed to [phone] at any time.[facility] Allergies No known active allergies Medications Medication [...] week 04/04/2023 How often do you attend [facility] or [facility] services? 1 to 4 times [...] and heating? Not hard at all 04/04/2023 [facility] [place] of Occupat ional Health - Occupational Stress [...] Comments Blood Pressure 107/69 01/10/2024 3:47 PM POWERHOUSE OPERATOR Pulse 75 01/10/2024 3:47 PM POWERHOUSE OPERATOR Temperature 36.6 ??C (97.9 ??F) 06/20/2023 12:50 PM C DT Respiratory Rate 16 06/20/2023 1:15 PM CDT Oxygen Saturation 93% 06/20/2023 1:15 PM CDT Inhaled Oxygen Concentration - - Weight 100 kg (221 lb 3.7 oz) 01/10/2024 3:47 PM POWERHOUSE OPERATOR Height 175.6 cm (5' 9.13) 01/10/2024 3:47 PM CS T Body Mass Index 32.54 01/10/2024 3:47 PM POWERHOUSE OPERATOR Plan of Treatment Upcoming Encounters Date Type Department Care Team (Late st Contact Info) Description 10/17/2024 10:30 AM POWERHOUSE OPERATOR [facility] [place], [place] [address] [place] [address] Cody Gutiérrez M.D. [address] [place] [address] Health Maintenance Due Date Last Done Comments [...] (Kidney Fun ction Test) 08/01/2021 08/01/2020, 01/18/2020 Pneumococcal vaccine (65+ ye ars) (3 of 3 - PPSV23 or PCV20) 2023 04/13/2019, 02/16/1994 Depression Screening (Annual PHQ-2) 11/21/2023 Fall Risk Screen (Annual) 11/21/2023 COVID-19 Vaccine (2 - 2023-2 5 season) 2024 02/13/2021 Influenza Vaccine (#1) 2024 3, 08/25/2022, 07/25/2021, Additional history exists Office Visit for Blood Press ure Check / Re-check 01/10/2025 01/10/2024 DTaP,Tdap,and Td Vaccines (4 - Td or Tdap) 04/02/2032 04/02/2022, 10/08/2014, 08/24/2012 Abdominal Aortic Aneurysm (A AA) Screen Completed 01/18/2020 Medical Devices Implanted Type Area Senior Quality Control Inspector Device Identifier Shelf Expiration Date Model / Serial / Lot Lead Cuff Stimulation - [id number] - [id number] Implanted:Qty: 1 on 06/20/2023 by Nitin Gutiérrez M.D., M.S. at [facility] Responsive Neurostimulator Sys Right: Neck [email or web address] 03/21/2026 4063-45 CM / [id number] / Lead Railroad Conductor Ap Thor Rsp Sns - [id number] - [id number] Implanted:Qty: 1 on 06/20/2023 by Nitin Gutiérrez M.D., M.S. at [facility] Responsive Neurostimulator Sys Right: Chest [employer] 04/11/2026 4340 / [id number] / Gen Nrstm Sleep Apnea Thor - [id number] - [id number] Implanted:Qty: 1 on 06/20/2023 by Nitin Gutiérrez M.D., M.S. at [facility] Spinal Cord Stimulator Right: Chest [employer] 04/12/2026 3028 / [id number] / Advance Directives For more information, please contact: [phone] * Full Code (Latest Code Status on File) Date Activated Date Inactivated Comments 06/20/2023 1:42 PM 06/22/2023 2:04 AM Question Answer Comments Full Code: Discussed Care Teams Visual Design Lead Relationship Specialty Start Date End Date None Reported, Pcp PCP - General Family Medicine 05/16/23
--- OUTSIDE RECORDS SUMMARY | 2024-08-30 10:53 | XMS_ITS | Referral Summary ---
Author Organization [facility] Address [address] [place] [address] Care Team Providers Care Public Information Coordinator Name Role Phone None Reported, Pcp Primary Care Provider Unavail able Source Comments Patient records contain information from all sites at [facility]. For routine questions regarding patient records, call [phone] during business hours, M-F 8:00 AM - 5:00 PM Central Time. Record requests for emergency care only can be directed to [phone] at any time.[facility] Allergies No known active allergies Medications Medication [...] week 04/04/2023 How often do you attend [facility] or [facility] services? 1 to 4 times per year 04/04/2023 Do you belong to any clubs o r organizations such as temple groups, unions, fraternal or athletic groups, or [...] hard at all 04/04/2023 [facility] [place] of Occupat ional Health - Occupational Stress [...] Comments Blood Pressure 107/69 01/10/2024 3:47 PM SURVEILLANCE OFFICER Pulse 75 01/10/2024 3:47 PM SURVEILLANCE OFFICER Temperature 36.6 ??C (97.9 ??F) 06/20/2023 12:50 PM C DT Respiratory Rate 16 06/20/2023 1:15 PM CDT Oxygen Saturation 93% 06/20/2023 1:15 PM CDT Inhaled Oxygen Concentration - - Weight 100 kg (221 lb 3.7 oz) 01/10/2024 3:47 PM SURVEILLANCE OFFICER Height 175.6 cm (5' 9.13) 01/10/2024 3:47 PM CS T Body Mass Index 32.54 01/10/2024 3:47 PM SURVEILLANCE OFFICER Plan of Treatment Upcoming Encounters Date Type Department Care Team (Late st Contact Info) Description 10/17/2024 10:30 AM SURVEILLANCE OFFICER [facility] in [place], [place] [address] [place] [address] Cody Gutiérrez M.D. [address] [place] [address] Medical Devices Implanted Type Area Hop Sorter Device Identifier Shelf Expiration Date Model / Serial / Lot Lead Cuff Stimulation - [id number] - [id number] Implanted:Qty: 1 on 06/20/2023 by Nitin Gutiérrez M.D., M.S. at [facility] Responsive Neurostimulator Sys Right: Neck [employer] 03/21/2026 4063-45 CM / [id number] / Lead Terrazzo Mechanic Helper Ap Thor Rsp Sns - [id number] - [id number] Implanted:Qty: 1 on 06/20/2023 by Nitin Gutiérrez M.D., M.S. at [facility] Responsive Neurostimulator Sys Right: Chest [employer] 04/11/2026 4340 / [id number] / Gen Nrstm Sleep Apnea Thor - [id number] - [id number] Implanted:Qty: 1 on 06/20/2023 by Nitin Gutiérrez M.D., M.S. at [facility] Spinal Cord Stimulator Right: Chest [employer] 04/12/2026 3028 / [id number] / Advance Directives For more information, please contact: [phone] * Full Code (Latest Code Status on File) Date Activated Date Inactivated Comments 06/20/2023 1:42 PM 06/22/2023 2:04 AM Question Answer Comments Full Code: Discussed Care Teams Public Information Coordinator Relationship Specialty Start Date End Date None Reported, Pcp PCP - General Family Medicine 05/16/23
--- OUTSIDE RECORDS SUMMARY | 2024-08-30 10:53 | XMS_ITS | Continuity of Care Document ---
Author Organization [facility] Address [address] [place] [address] Phone Care Team Providers Care Mat Cutter Name Role Phone Unavailable Unavailable Unavailable Allergies, [...] - Active Procedures Procedure Date Office/Outpatient Visit,New, [facility] 2020 Results Test Name Date and Time Measure Units Reference Range Abnormal Flag Status Comments Panel Description: Transfora judd Uuuwqds-Qghios-Jsjixftrnpzthb (TRANSLUMNONPART) Unknown TRANSLUMNONPART 17:15:59 (See Attached Document) Unknown (See Attached Document) Panel Description: Transfora judd Jjvjbrc-Ldnjff-Ltoofrhsbmmeli (TRANSLUMNONPART) Unknown Image Transforaminal Uzhzron-Axucrg-Y onparti Advance Directives Directive Yes / No Effective Date File Name No Information Encounters Encounter Description Practice Location Reason(s) For Visit Diagnoses Date Provider Providers Copied on Encounter [facility], [address], [place], [place], [id number], tel:[phone] [facility] No Information No Information Office/Outpat ient Visit,New, [facility], [address], [place], [id number], [place] tel:[phone] [facility] [place] Radiculopath y, lumbar region No Information Family History Family Member Type Diagnosis Age At Onset No Information Payers Payer name Insurance type Covered alliance party ID Authoriza tion(s) Medicare [id number] For Life/Retired Bunny [id number] Social History Type Description Quantity Date Captured [...]
--- OUTSIDE RECORDS SUMMARY | 2024-08-30 10:54 | XMS_ITS | Encounter Summary ---
Author Organization [facility] Address [address] [place] [address] Care Team Providers Care Floor Person Name Role Phone Lucero Fraire MD Primary Care Provider Encounter Details Date Type Department Care Team (Late st Contact Info) Description 07/08/2016 Orders Only [facility] [address] [place] [address] Kameron Morales MD [address] [place] [address] Post-traumatic osteoarthritis of left knee Social History [...] leg documented in this encounter Care Teams Floor Person Relationship Specialty Start Date End Date Lucero Fraire MD [address] [place] [address] PCP - General 12/03/15 documented as of this encounter
--- OUTSIDE RECORDS SUMMARY | 2024-08-30 10:54 | XMS_ITS | Clinical Summary ---
Author Organization [facility] Address [address] [place] [address] Care Team Providers Care Plywood Stock Grader Name Role Phone Lucero Fraire MD Primary Care Provider Source Comments You are receiving this document as you are listed as the primary care provider,follow-up provider, or the patient has been referred to you for consultation.This is in compliance with the Medicare and[facility] EHR Incentive Program,which states Providers who transition their patient to another setting of careor provider of care or refers their patient to another provider of care shouldprovide summary care record for each transition of care or referral. [employer] Allergies No known active allergies Medications Medication [...] Date Diagnosed Date Tobacco use disorder 04/27/2003 Overview (07/13/2017): Tobacco Abuse Lumbago 04/27/2003 Overview (07/13/2017): Pain Low Back Immunizations Name Administration Dates [...] Cholesterol 1993 Zoster/Shingles (1 of 2) 2008 Pneumococcal 65+ Yrs (2 - PCV) 2023 02/16/1994 COVID-19 Vaccine (1 - 2023-2 5 season) 2024 Influenza (#1) 2024 DTaP/Tdap/Td (2 - Tdap) 10/08/2024 10/08/2014 RSV (1 - 1-dose 75+ series) 2033 Hib Aged Out 02/16/1994 No longer eligi ble based on patient's age to complete this topic HepA Aged Out No longer eligi ble based on patient's age to complete this topic HepB Aged Out No longer eligi ble based on patient's age to complete this topic IPV (Polio) Aged Out No longer eligi ble based on patient's age to complete this topic RSV Aged Out No longer eligi ble based on patient's age to complete this topic MCV4 Aged Out No longer eligi ble based on patient's age to complete this topic Medical Devices Implanted Type Area Nuclear Spectroscopist Device Identifier Shelf Expiration Date Model / Serial / Lot Bone Putty [place] Dbm 1cc - [id number] Implanted:Qty : 1 on 09/27/2016 by Kameron Morales MD at [facility] Left: LEG [employer] - [employer] 09/23/2018 14530 / [id number] / 0 Description:For fusion of pr oximal tibial and fibula fracture Scr Canc Lg Hex 6.5x70 32-Thrd - [id number] Implanted:Qty : 2 on 09/27/2016 by Kameron Morales MD at [facility] Left: LEG [employer] [id number] / 0 / 0 Washer Lg Scr 13.0mm Od - [id number] Implanted:Qty : 2 on 09/27/2016 by Kameron Morales MD at [facility] Left: LEG [employer] [id number] / 0 / 0 Advance Directives * Full Code (Latest Code Status on File) Date Activated Date Inactivated Comments 08/08/2017 1:07 PM 08/08/2017 5:07 PM Full code in effect for 30 days * Full Code Date Activated Date Inactivated Comments 09/27/2016 10:03 AM 09/27/2016 1:23 PM Full code i n effect for 30 days Care Teams Plywood Stock Grader Relationship Specialty Start Date End Date Lucero Fraire MD [address] [place] [address] PCP - General 12/03/15
--- OUTSIDE RECORDS SUMMARY | 2024-08-30 10:55 | XMS_ITS | Encounter Summary ---
Author Organization [facility] Address [address] [place] [address]. [place] [address] Care Team Providers Care Media Relations Coordinator Name Role Phone Carmita German MD Primary Care Provider [phone] Lucero Fraire MD Primary Care Provider [phone] Encounter Details Date Type Department Care Team (Late st Contact Info) Description 11/06/2010 Office Visit-[facility] [address] [place] [address] Timothy Mcgraw MD [address] [facility] [address] [place] [address] Social History Tobacco Use Types Packs/Day Years Used Date Smoking Tobacco: Never Assessed Sex and Gender Information Value Date Recorded Sex Assigned at Not on file Gender Identity Not on file Sexual Orientation Not on file documented as of this encounter Progress Notes * Timothy Mcgraw MD - 11/25/2010 4:47 PM CST Progress Note Created by: Timothy Mcgraw M.D. [id number] DATE: 11/06/2010 SHASHANK HASTINGS DATE OF : 1960 AGE: [age] years old Referring Physician: CARMITA GERMAN Referring Clinic: [facility] CURRENT DIAGNOSES 1. - Abnormal EKG, 794.31 ALLERGIES NKDA MEDICATIONS (prior to changes made today) 1. Aspirin 81 mg Tablet, 1 p.o. daily 2. Simvastatin 80 mg Tablet, 1 p.o. daily 3. Nexium 40 mg Capsule, Delayed Release(E.C.), 1 p.o. daily 4. Lunesta 2 mg Tablet, 1 p.o. PRN as Directed 5. Nasonex 50 mcg/Actuation [place], Non-Aerosol, 1 p.o. PRN as Directed 6. [...] loss of sensation. He received thrombolysis at [facility]. I do not have complete [...] exercises regularly and gym member; Occupation - [employer]; Residence - lives in [place] year round; Place of - [place]; REVIEW OF SYSTEMS GENERAL feels well, no [...] PRN as Directed, #0 Nasonex 50 mcg/Actuation [place], Non-Aerosol, 1 p.o. PRN as Directed, #0 [...] on filedocumented in this encounter Care Teams Media Relations Coordinator Relationship Specialty Start Date End Date Carmita German MD [address] [place] [phone] PCP - General Family Practice 10/21/11 12/21/16 Lucero Fraire MD [place] [address] [address] [address] PCP - General 10/20/17 documented as of this encounter
--- OUTSIDE RECORDS SUMMARY | 2024-08-30 10:55 | XMS_ITS | Clinical Summary ---
Author Organization [facility] Address [address] [place] [address]. [place] [address] Care Team Providers Care Youth Leader Name Role Phone Lucero Fraire MD Primary Care Provider [phone] Allergies No known active allergies Medications Medication [...] of Treatment Not on file Care Teams Youth Leader Relationship Specialty Start Date End Date Lucero Fraire MD [facility] [address] [place], [place] [id number] PCP - General 10/20/17
--- OUTSIDE RECORDS SUMMARY | 2024-08-30 10:55 | XMS_ITS | Referral Summary ---
Author Organization [facility] Address [address] [place] [address]. [place] [address] Care Team Providers Care Clerk Stenographer Name Role Phone Lucero Fraire MD Primary Care Provider [phone] Allergies No known active allergies Medications Medication [...] of Treatment Not on file Care Teams Clerk Stenographer Relationship Specialty Start Date End Date Lucero Fraire MD [facility] [address] [place], [place] [id number] PCP - General 10/20/17
[2024-08-30 11:00] VITALS: BP 120/72; PULSE 68; RESP 18; O2SAT 98
[2024-08-30 11:28] LABS: Basophils Absolute Auto 0.07 K/uL (0.00-0.30); Basophils Percent Auto 0.7 % (0.0-3.0); Eosinophils Absolute Auto 0.53 K/uL (0.00-0.50); Eosinophils Percent Auto 5.3 % (0.0-7.0); Hematocrit 47.2 % (37.0-53.0); Hemoglobin* 15.3 gm/dL (13.5-17.5); Immature Granulocytes Abs Auto 0.02 K/uL (0.00-0.30); Immature Granulocytes Pct Auto 0.2 %; Lymphocytes Percent Auto 45.9 % (20-44); Mean Corpuscular HGB Conc 32 gm/dL (32-36); Mean Corpuscular Hemoglobin 29 pg (26-34); Mean Corpuscular Volume 90 fL (80-100); Monocytes Percent Auto 10.3 % (0.0-11.0); Neutrophils Percent Auto 37.6 % (42.0-72.0); Platelet Count* 280 K/uL (140-440); RDW Coefficient of Variation % 14.3 % (11.5-15.5); Red Blood Count 5.22 m/uL (4.30-5.90); White Blood Count* 10.01 K/uL (4.50-11.00)
[2024-08-30 11:38] LABS: Slide Review Reflex No
[2024-08-30 11:48] LABS: Chloride* 107 mmol/L (96-114); Potassium* 4.8 mmol/L (3.6-5.1); Sodium* 138 mmol/L (135-149)
[2024-08-30 11:51] LABS: Anion Gap 6 mEq/L (7-15); Blood Urea Nitrogen* 14 mg/dL (7-30); Carbon Dioxide* 25 mmol/L (20-32); Creatinine* 0.8 mg/dL (0.5-1.5); Est. Creatinine Clearance* 71.25; Estimated Glomerular Filt Rate 98 ml/min; Glucose* 139 mg/dL (60-115)
[2024-08-30 11:52] LABS: Calcium* 9.3 mg/dL (8.4-10.6)
[2024-08-30] MEDS: dexAMETHasone 10 MG/ML inj PO (12:31)
[2024-08-30 12:35] VITALS: BP 133/83; PULSE 69; RESP 18; TEMP 35.8
== END 2024-08-30 12:41 | disposition home or self-care (01) ==
PROVIDERS: Emergency Provider Emergency Medicine Emergency Medical Services; PCP Physician Assistant Medical
DX: R20.2 Paresthesia of skin (principal)
CPT/HCPCS: 36415; 70450; 80048; 85025; 99284; J1100

== ENCOUNTER 2024-09-03 08:20 | Outpatient (CLI) | payer MEDICARE, OTHER, SELFPAY ==
--- OUTSIDE RECORDS SUMMARY | 2024-09-05 08:43 | XMS_ITS ---
Author Organization [facility] Address [address] [place] [address] Care Team Providers Care Gear Shaver Set Up Operator Name Role Phone Unavailable Unavailable Unavailable Surgery Details Not on file Complications Check Surgery Details section. Procedure Estimated Blood Loss Check Surgery Details section. Procedure Findings Check Surgery Details section. Procedure Specimens Taken Check Surgery Details section.
--- OUTSIDE RECORDS SUMMARY | 2024-09-05 08:43 | XMS_ITS | Continuity of Care Document ---
Author Organization [facility] Address [address] [place] [address] Phone Care Team Providers Care Histopathologist Name Role Phone Unavailable Unavailable Unavailable Allergies, [...] - Active Procedures Procedure Date Office/Outpatient Visit,[place] [facility] [place] Results Test Name Date and Time Measure Units Reference Range Abnormal Flag Status Comments Panel Description: Transfora judd Icbitqq-Ldqylb-Devufszpapwtrj (TRANSLUMNONPART) Unknown TRANSLUMNONPART 17:15:59 (See Attached Document) Unknown (See Attached Document) Panel Description: Transfora judd Jkzhylg-Zkwmwg-Nblgeelbfhceyq (TRANSLUMNONPART) Unknown Image Transforaminal Pdgjkyw-Ccgnai-S onparti Advance Directives Directive Yes / No Effective Date File Name No Information Encounters Encounter Description Practice Location Reason(s) For Visit Diagnoses Date Provider Providers Copied on Encounter [facility], [address], [place], [place], [id number], tel:[phone] [facility] No Information No Information Office/Outpat ient Visit,New, [facility], [address], [place], [id number], [place] tel:[phone] [facility] [place] Radiculopath y, lumbar region No Information Family History Family Member Type Diagnosis Age At Onset No Information Payers Payer name Insurance type Covered green party ID Authoriza tion(s) Medicare [id number] For Life/Retired Bunny [id number] Social History Type Description Quantity Date Captured [...]
--- OUTSIDE RECORDS SUMMARY | 2024-09-05 08:43 | XMS_ITS | Referral Summary ---
Author Organization [facility] Address [address] [place] [address] Care Team Providers Care Structurer Name Role Phone None Reported, Pcp Primary Care Provider Unavail able Source Comments Patient records contain information from all sites at [facility]. For routine questions regarding patient records, call [phone] during business hours, M-F 8:00 AM - 5:00 PM Central Time. Record requests for emergency care only can be directed to [phone] at any time.[facility] Allergies No known active allergies Medications metFORMIN (GLUCOPHAGE) 500 mg tablet Take 500 mg by mouth every 4 (four) hours. Active pregabalin (LYRICA) 100 mg capsule Take 25 mg by mouth 2 (two) times a day. 25mg 3 in the am and 3 in the pm Active FLUoxetine (PROzac) 20 mg capsule Take 20 mg by mouth daily. Active ezetimibe-ator vastatin 10-10 mg tablet Take by mouth daily. Active pantoprazole (PROTONIX) 40 mg EC tablet Take 40 mg by mouth daily. Active fluticasone propionate (FLONASE) 50 mcg/actuation nasal spray Administer 2 sprays into each nostril daily. Active meloxicam (MOBIC) 15 mg tablet Take 1 tablet by mouth daily. 7.5mg [address] Active [address] tablet Take by mouth daily. 8 Active rosuvastatin 40 mg capsule, sprinkle Take by mouth. Activ e propranoloL (INDERAL LA) 60 mg 24 hr capsule Take 60 mg by mouth daily. Active Trulicity 1.5 mg/0.5 mL pen injector injection Inject 0.5 mL (1.5 mg) subcutaneously every week; new dosing once weekly* 3 Active Accu-Chek Guide test strips USE TO TEST DAILY* 3 Active valACYclovir (VALTREX) 1000 mg tablet take 1 tablet by mouth once daily for 5 days as needed for cold sores* 3 Active cyclobenzaprin e (FLEXERIL) 10 mg tablet TAKE ONE TABLET BY MOUTH AT BEDTIME NEEDED for muscle spasm* 4 Active tamsulosin (FLOMAX) 0.4 mg 24 hr capsule Take 0.4 mg by mouth at bedtime. 4 Active Active Problems Problem Noted Date Diagnosed [...] week 04/04/2023 How often do you attend [facility] or [facility] services? 1 to 4 times per year 04/04/2023 Do you belong to any clubs o r organizations such as adventism groups, unions, fraternal or athletic groups, or [...] and heating? Not hard at all 04/04/2023 [facility] [place] of Occupat ional Health - Occupational Stress [...] Assigned at Male 04/04/2023 10:07 AM CDT Legal Sex Male 3:24 PM HYDRODYNAMICS TEACHER Gender Identity Male 04/04/2023 10:07 AM CDT Sexual Orientation Straight 04/04/2023 10 :07 AM CDT Last Filed Vital Signs Vital Sign Reading Time Taken Comments Blood Pressure 107/69 01/10/2024 3:47 PM HYDRODYNAMICS TEACHER Pulse 75 01/10/2024 3:47 PM HYDRODYNAMICS TEACHER Temperature 36.6 ??C (97.9 ??F) 06/20/2023 12:50 PM C DT Respiratory Rate 16 06/20/2023 1:15 PM CDT Oxygen Saturation 93% 06/20/2023 1:15 PM CDT Inhaled Oxygen Concentration - - Weight 100 kg (221 lb 3.7 oz) 01/10/2024 3:47 PM HYDRODYNAMICS TEACHER Height 175.6 cm (5' 9.13) 01/10/2024 3:47 PM CS T Body Mass Index 32.54 01/10/2024 3:47 PM HYDRODYNAMICS TEACHER Plan of Treatment Upcoming Encounters Date Type Department Care Team (Late st Contact Info) Description 10/17/2024 10:30 AM HYDRODYNAMICS TEACHER [facility] in [place], [place] [address] [place] [address] Cody Gutiérrez M.D. [address] [place] [address] Medical Devices Implanted Type Area Jockey Agent Device Identifier Shelf Expiration Date Model / Serial / Lot Lead Cuff Stimulation - [id number] - [id number] Implanted:Qty: 1 on 06/20/2023 by Nitin Gutiérrez M.D., M.S. at [facility] Responsive Neurostimulator Sys Right: Neck [employer] 03/21/2026 4063-45 CM / [id number] / Lead Soda Drier Feeder Ap Thor Rsp Sns - [id number] - [id number] Implanted:Qty: 1 on 06/20/2023 by Nitin Gutiérrez M.D., M.S. at [facility] Responsive Neurostimulator Sys Right: Chest [employer] 04/11/2026 4340 / [id number] / Gen Nrstm Sleep Apnea Thor - [id number] - [id number] Implanted:Qty: 1 on 06/20/2023 by Nitin Gutiérrez M.D., M.S. at [facility] Spinal Cord Stimulator Right: Chest [employer] 04/12/2026 3028 / [id number] / Insurance MEDICARE [facility] [employer] Advance Directives For more information, please contact: [phone] * Full Code (Latest Code Status on File) Date Activated Date Inactivated Comments 06/20/2023 1:42 PM 06/22/2023 2:04 AM Question Answer Comments Full Code: Discussed Care Teams Structurer Relationship Specialty Start Date End Date None Reported, Pcp PCP - General Family Medicine 05/16/23
--- OUTSIDE RECORDS SUMMARY | 2024-09-05 08:43 | XMS_ITS | Clinical Summary ---
Author Organization [facility] Address [address] [place] [address] Care Team Providers Care Disease Intervention Specialist Name Role Phone None Reported, Pcp Primary Care Provider Unavail able Source Comments Patient records contain information from all sites at [facility]. For routine questions regarding patient records, call [phone] during business hours, M-F 8:00 AM - 5:00 PM Central Time. Record requests for emergency care only can be directed to [phone] at any time.[facility] Allergies No known active allergies Medications metFORMIN [...] you attend [facility] or pentecostal services? 1 to 4 times per year 04/04/2023 Do you belong to any clubs o r organizations such as christian groups, unions, fraternal or athletic groups, or [...] and heating? Not hard at all 04/04/2023 [facility] Occupat ional [facility] - Occupational Stress [...] AM CDT Legal Sex Male 3:24 PM UR COORDINATOR Gender Identity Male 04/04/2023 10:07 AM CDT Sexual Orientation Straight 04/04/2023 10 :07 AM CDT Last Filed Vital Signs Vital Sign Reading Time Taken Comments Blood Pressure 107/69 01/10/2024 3:47 PM UR COORDINATOR Pulse 75 01/10/2024 3:47 PM UR COORDINATOR Temperature 36.6 ??C (97.9 ??F) 06/20/2023 12:50 PM C DT Respiratory Rate 16 06/20/2023 1:15 PM CDT Oxygen Saturation 93% 06/20/2023 1:15 PM CDT Inhaled Oxygen Concentration - - Weight 100 kg (221 lb 3.7 oz) 01/10/2024 3:47 PM UR COORDINATOR Height 175.6 cm (5' 9.13) 01/10/2024 3:47 PM CS T Body Mass Index 32.54 01/10/2024 3:47 PM UR COORDINATOR Plan of Treatment Upcoming Encounters Date Type Department Care Team (Late st Contact Info) Description 10/17/2024 10:30 AM UR COORDINATOR [facility] [place], [place] [address] [place] [address] Cody Gutiérrez M.D. [address] [place] [address] Health Maintenance Due Date Last Done Comments [...] Completed 01/18/2020 Medical Devices Implanted Type Area Chemistry Specialist Device Identifier Shelf Expiration Date Model / Serial / Lot Lead Cuff Stimulation - [id number] - [id number] Implanted:Qty: 1 on 06/20/2023 by Nitin Gutiérrez M.D., M.S. at [facility] Responsive Neurostimulator Sys Right: Neck [employer] 03/21/2026 4063-45 CM / [id number] / Lead Software Testing Specialist Ap Thor Rsp Sns - [id number] - [id number] Implanted:Qty: 1 on 06/20/2023 by Nitin Gutiérrez M.D., M.S. at [facility] Responsive Neurostimulator Sys Right: Chest [employer] 04/11/2026 [id number] / [id number] / Gen Nrstm Sleep Apnea Thor - [id number] - [id number] Implanted:Qty: 1 on 06/20/2023 by Nitin Gutiérrez M.D., M.S. at [facility] Spinal Cord Stimulator Right: Chest [employer] 04/12/2026 3028 / [id number] / Insurance MEDICARE [facility] Advance Directives For more information, please contact: [phone] * Full Code (Latest Code Status on File) Date Activated Date Inactivated Comments 06/20/2023 1:42 PM 06/22/2023 2:04 AM Question Answer Comments Full Code: Discussed Care Teams Disease Intervention Specialist Relationship Specialty Start Date End Date None Reported, Pcp PCP - General Family Medicine 05/16/23
--- OUTSIDE RECORDS SUMMARY | 2024-09-05 08:44 | XMS_ITS | Continuity of Care Document ---
Author Organization [facility] enter Address [address] [place] [address] Phone Care Team Providers Care Chain Builder Loom Control Name Role Phone [facility] Unavailable Unava ilable Procedures Procedure Date [...] Diagnoses Date Provider Providers Copied on Encounter [facility], [address] [place] [address], [id number], [place] tel:[phone] [facility] No Information [facility]. [address] [place] [address], [id number], [place]. tel:[phone] Referring Provider: Vitaly Bah, [address] [place], [address] . tel:[phone] [facility], [address] [place] [address], [id number], tel:[phone] [facility] No Information 3 [facility]. [address] [place] [address], [id number], . tel:[phone] Referring Provider: Vitaly Bah, [address] [place], [address] . tel:[phone] [facility], [address] [place] [address], [id number], tel:[phone] [place] [address] No Information 3 [facility]. [address] [place] [address], [id number], . tel:[phone] Referring Provider: Vitaly Bah, [address] [place], [address] . tel:[phone] Family History Family Member Type Diagnosis Age At Onset No Information Payers Payer name Insurance type Covered democrat ID Authorjacintoa teodora(s) Medicare MB [id number] [facility] [id number] Social History Type Description Quantity Date Captured [...]
--- OUTSIDE RECORDS SUMMARY | 2024-09-05 08:45 | XMS_ITS | Clinical Summary ---
Author Organization [facility] Address [place], [place] [address] Care Team Providers Care General House Worker Name Role Phone None Primary Care Provider [...] age 50+ (1 of 2) 09/22/20 08 Pneumococcal series for age 65+ (1 of 1 - PCV) 023 COVID-19 vaccine series (2023-25 season) 4 Influenza for age 65+ 07/22/2024 Care Teams General House Worker Relationship Specialty Start Date End Date None . PCP - General 02/09/18
--- OUTSIDE RECORDS SUMMARY | 2024-09-05 08:45 | XMS_ITS | Clinical Summary ---
Author Organization [facility] Address [address] [place] [address]. [place] [address] Care Team Providers Care Civil Engineering Draftsperson Name Role Phone Lucero Fraire MD Primary Care Provider [phone] Allergies No known active allergies Medications Medication [...] of Treatment Not on file Care Teams Civil Engineering Draftsperson Relationship Specialty Start Date End Date Lucero Fraire MD [facility] [address] [place], [place] [id number] PCP - General 10/20/17
--- OUTSIDE RECORDS SUMMARY | 2024-09-05 08:45 | XMS_ITS | Continuity of Care Document ---
Author Organization [facility] Address [address] [facility] [place] [address] Phone Care Team Providers Care Digestion Operator Name Role Phone Will Vitaly TRAN Unavailable Unavailabl e Allergies, Adverse Reactions, Alerts Substance Reaction Status [...] BILATERAL OFFICE/OUTPATIENT VISIT, EST Disabilty Reports Forms [facility] OFFICE/OUTPATIENT VISIT, EST Nerve Block Other Peripheral LEFT Ultrasound Guidance [employer] Tax [facility] OFFICE/OUTPATIENT VISIT, EST [facility] OFFICE CONSULTATION Advance Directives Directive Yes / No Effective Date File Name No Information Encounters Encounter Description Practice Location Reason(s) For Visit Diagnoses Date Provider Providers Copied on Encounter [facility], [address] [place] [address], [id number] , [place] tel:[phone] [facility] No Information 4 Kulwinder Haider. [address] [place] [address], [id number], [place]. tel:[phone] [facility], [address] [place] [address], [id number] , [place] tel:[phone] [facility] Occipital neuralgia 4 Caden Ennis. [address] [place] [address], [place], [place], [id number], [place]. tel:[phone] Referring Provider: Vitaly Cruz, [address] [place] [address], [address]. tel:[phone] [facility], [address] [place] [address], [id number] , [place] tel:[phone] [facility] Pain in right hipPain in left hip 4 Niurka Haider. [address] [place] [address], [id number], [place]. tel:[phone] Referring Provider: Vitaly Cruz, [address] [place] [address], [id number]. tel:[phone] OFFICE/OUTPAT IENT VISIT, [facility], [address] [place] [address], [id number] , [place] tel:[phone] [facility] Widespread pain (chief complaint) Chronic pain syndromePain in right hipPain in left hipOther spondylosis with radiculopathy , lumbar regionOther spondylosis, cervical regionOccipit al neuralgiaOthe r correction (current) drug therapy Mar-0 8 4 Gamaliel Webber. [address] [facility] [address], [place], [place], [id number], [place]. tel:[phone] Benzol Operator: Tonya Stern, [facility] [address], [place], [address]. tel:[phone] Workers Compensation .Referring Provider: Vitaly Cruz, [address] [place] [address], [id number]. tel:[phone] [place] [address] Pain Clinic, [address] [place] [address], [id number] , [place] tel:[phone] [facility] Pain in left hipPain in right hip Sep-1 3 Niurka Haider. [address] [place] [address], [id number], [place]. tel:[phone] Referring Provider: Vitaly Cruz, [address] [place] [address], [address]. tel:[phone] OFFICE/OUTPAT IENT VISIT, [facility], [address] [place] [address], [id number] , [place] tel:[phone] [facility] Widespread pain (chief complaint) Chronic pain syndromePain in right hipPain in left hipOther spondylosis with radiculopathy , lumbar regionOther spondylosis, cervical regionOccipit al neuralgiaOthe r middle or intermediate school principal (current) drug therapy Sep-1 - 3 Laure Smiley. [address], [place], [place], [id number], [place]. tel:[phone] Benzol Operator: Tonya Stern, [employer] [address], [place], [address]. tel:[phone] Workers Compensation .Referring Provider: Vitaly Cruz, [address] [place] [address], [address]. tel:[phone] OFFICE/OUTPAT IENT VISIT, EST [facility], [address] [place] [address], [id number] , [place] tel:[phone] [facility] Widespread pain (chief complaint) Chronic pain syndromeOther spondylosis with radiculopathy , lumbar regionOccipit al neuralgiaOthe r spondylosis, cervical regionPain in right hipPain in left hipOther middle or intermediate school principal (current) drug therapy Jul- 3 Laure Sherice. [address] [facility] [address], [place], [id number], . tel:[phone] Benzol Operator: Tonya Stern, [employer] [facility] [address], [place], [address]. tel:[phone] Workers Compensation .Referring Provider: Vitaly Cruz, [address] [place] [address], [address]. tel:[phone] [facility], [address] [place] [address], [id number] , [place] tel:[phone] [facility] No Information 3 Laure Sherice. [address] [facility] [address], [place], [place], [id number], [place]. tel:[phone] [facility], [address] [place] [address], [id number] , [place] tel:[phone] [facility] Occipital neuralgia Jan- 3 Niurka Haider. [address] [place] [address], [id number], [place]. tel:[phone] Referring Provider: Vitaly Cruz, [address] [place] [address], [address]. tel:[phone] OFFICE/OUTPAT IENT VISIT, [facility], [address] [place] [address], [id number] , [place] tel:[phone] [facility] Widespread pain (chief complaint) Chronic pain syndromeOccip ital neuralgiaPain in left footPain in right footCervicalg iaOther spondylosis with radiculopathy , lumbar region Jan- 3 Laure Sherice. [address] [place] [address] [address], [place], [place], [id number], [place]. tel:[phone] Benzol Operator: Tonya Stern, [employer] [facility] [address], [place], [address]. tel:[phone] Workers Compensation .Referring Provider: Vitaly Cruz, [address] [place] [address], [address]. tel:[phone] [place] [address], [address] [place] [address], [id number] , tel:[phone] [facility] No Information [address] Pepe Mcmillan. [address] [place] [address], [id number], [place]. tel:[phone] Referring Provider: Vitaly Cruz, [address] [place] [address], [address]. tel:[phone] OFFICE/OUTPAT IENT VISIT, [facility], [address] [place] [address], [id number] , [place] tel:[phone] [facility] Leg Pain (chief complaint) Pain in left kneeOther chronic postprocedura l painPain in left leg 3-201 8 Pepe Mcmillan. [address] [place] [address], [id number], [place]. tel:[phone] Benzol Operator: Tonya Stern, [employer] [facility] [address], [place], [address]. tel:[phone] Workers Compensation .Referring Provider: Vitaly Cruz, [address] [place] [address], [address]. tel:[phone] [place] [address] Pain Clinic, [address] [place] [address], [id number] , tel:[phone] [facility] Pain in left leg 0- 8 Kate Suresh. [address] [place] [address], [id number], [place]. tel:[phone] OFFICE/OUTPAT IENT VISIT, EST [facility], [address] [place] [address], [id number] , [phone] [facility] [place] Leg Pain (chief complaint) Other chronic postprocedura l painPain in left kneePain in left leg 8 Pepe Deyanira. [address] [place] [address], [id number], [place]. tel:[phone] Benzol Operator: Tonya Stern, [employer] [address], [place], [address]. tel:[phone] Workers Compensation . OFFICE CONSULTATION [facility], [address] [place] [address], [id number] , tel:[phone] [facility] Leg Pain (chief complaint) Pain in left legPain in left kneeOther chronic postprocedura l pain - 8 Pepe Mcmillan. [address] [place] [address], [id number], [place]. tel:[phone] Benzol Operator: Tonya Stern, [employer] [employer] [facility] [address], [place], [address]. tel:[phone] Workers Compensation . [facility], [address] [place] [address], [id number] , [place] tel:[phone] [facility] [place] No Information Jan-0 2- 8 Kulwinder Haider. [address] [place] [address], [id number], [place]. tel:[phone] Family History Family Member Type Diagnosis Age At Onset No Information Payers Payer name Insurance type Covered constitution party ID Authoriza tianshul(s) Medicare [id number] [facility] [id number] Social History Type Description Quantity Date Captured Comments Alcohol Use Details Unknown Caffeine Use Details Unknown Tobacco Use Status No Information Smoking Status No Information Sex Male Chief Complaint And Reason For Visit No Information Reason For Referral Reason For Referral No Information Plan Of Treatment Date Type Action Status Goal Unhealthy drug use screening . Due on due Goal Zoster vaccine (1st). Due on due Goal Update Social History. Due o n due Goal CT-Colonography. Due on due Goal Hepatitis C screening. Due o n due Goal FIT. Due on due Goal Medication Reconciliation. D ue on due Goal Review Allergy List. Due on due Goal Tobacco Use. Due on due Goal PHQ-9. Due on du e Goal FIT-DNA. Due on due Goal Weight. Due on d ue Goal Lipid panel. Due on due Goal Height. Due on d ue Goal Zoster vaccine (1st). Due on due Goal Unhealthy drug use screening . Due on due Goal Hepatitis C screening. Due o n due Goal Update Social History. Due o n due Goal Lipid panel. Due on due Goal FIT-DNA. Due on due Goal Tobacco Use. Due on due Goal Height. Due on d ue Goal Review Allergy List. Due on due Goal Weight. Due on d ue Goal FIT. Due on due Goal Medication Reconciliation. D ue on due Goal PHQ-9. Due on du e Goal CT-Colonography. Due on due Goal Lipid panel. Due on due Goal Zoster vaccine (). Due on due Goal Hepatitis C screening. Due o n due Goal Review Allergy List. Due on due Goal Update Social History. Due o n due Goal FIT. Due on due Goal CT-Colonography. Due on due Goal PHQ-9. Due on du e Goal Unhealthy drug use screening . Due on due Goal FIT-DNA. Due on due Goal Tobacco Use. Due on due Goal Medication Reconciliation. D ue on due Goal Weight. Due on d ue Goal Height. Due on d ue Goal Lifestyle education regardin g diet completed Goal PHQ-9. Due on du e Goal Medication Reconciliation. D ue on due Goal Weight. Due on d ue Goal Tobacco Use. Due on due Goal Height. Due on d ue Goal Review Allergy List. Due on due Goal Hepatitis C screening. Due o n due Goal Lipid panel. Due on due Goal Update Social History. Due o n due Goal Unhealthy drug use screening . Due on due Goal FIT-DNA. Due on due Goal CT-Colonography. Due on due Goal FIT. Due on due Goal Zoster vaccine (). Due on due Goal Weight. Due on d ue Goal Tobacco Use. Due on due Goal FIT. Due on [...] Goal Height. Due on d ue Goal Medication Reconciliation. D ue on due Goal Update Social History. Due o n due Goal Unhealthy drug use screening . Due on due Goal Height. Due on d ue Goal Review Allergy List. Due on due Goal Hepatitis C screening. Due o n due Goal Zoster vaccine (1st). Due on due Goal FIT-DNA. Due on due Goal Lipid panel. Due on 023 due Goal Weight. Due on d ue Goal Tobacco Use. Due on 023 due Goal FIT. Due on due Goal PHQ-9. Due on du e Goal CT-Colonography. Due on due Referral Ordered: MRI LUMBAR SPINE W/O DYE ordered Appointment Shashank Hastings BOOKED History Of Present Illness Encounter Date Complaint History Of Prese nt Illness Comments: This i s my first evaluation of the patient, previously followed by Sherice Kelsey DNP, who no longer practices at [facility].Shashank is a 63 y/o male who presents for follow up in the setting of chronic widespread pain, most prominent in the neck, mid-low back, and BL feet. Complains of ongoing R sided low back pain with radiation into the hips and groin. Pain has been worse [...] today. Widespread pain Severity level i s 9. [...] from the implant. No other concerns today. Comments: Shashank is a 62 y/o man here for initial consult regarding chronic widespread pain, referred by Dr. Suarez. Of note, patient was previously seen in clinic by [facility], but not since March 2018. [...] that he recently completed lumbar imaging at [facility], available for review.Currently attends PT at [facility], and is managed on Lyrica 25mg TID and [place] 5-325mg.Shashank is interested in pain management through [facility]. Inquires about being prescribed a muscle relaxant. No other concerns today. Widespread pain Severity [...] include diarrhea, dyspnea, fever and incontinence (urinary). Leg Pain (comments) Shashank is he re [...] L calf. PT was previously completed at [facility] in February; on hold [...] lying down, TENS and sitting. Leg Pain Duration: chroni c. Severity level is 5. It occurs constantly and is fluctuating. Location: left lower leg/pacheco. There is no radiation. The pain is aching and burning. The pain is aggravated by bending, walking, standing, stairs and prolonged positioning. The pain is relieved by massage, physical therapy and sitting. Pertinent negatives include difficulty initiating sleep. Leg Pain (comments) Shashank is he re for follow up. He c/o sleepiness with the gabapentin 1200mg/day but is trying to work through it. Met with an Dr Flor (ortho) in [place] for an evaluation and surgery was not recommended for him; per [facility], pt's quadriceps is not firing so physical therapy, perineal nerve block, and medication management was recommended to return to regular gait. Went to physical therapy ([facility]) yesterday and received massage, which initially was painful but provided some relief. Voltaren gel provided pain relief and requested a refill. Denies trying muscle relaxants. On [place] for unrelated issue, and does not find it helpful for his leg pain. Leg Pain Onset: on 2014. Duration: chronic. [...] tibia/fibula. Was sent to Dr. Morales by [facility] for a tib/fib fusion, completed 09/2016. 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
--- OUTSIDE RECORDS SUMMARY | 2024-09-05 08:45 | XMS_ITS | Referral Summary ---
Author Organization [place] Address [address] [place] [address]. [place] [address] Care Team Providers Care Machine Maintenance Servicer Name Role Phone Lucero Fraire MD Primary Care Provider [phone] Allergies No known active allergies Medications Medication [...] of Treatment Not on file Care Teams Machine Maintenance Servicer Relationship Specialty Start Date End Date Lucero Fraire MD [facility] [address] [place], [place] [id number] PCP - General 10/20/17
--- OUTSIDE RECORDS SUMMARY | 2024-09-05 08:45 | XMS_ITS | Clinical Summary ---
[facility] Address [address] [place] [address] Care Team Providers Care Director Home Health Name Role Phone Lucero Fraire MD Primary Care Provider Source Comments You are receiving this document as you are listed as the primary care provider,follow-up provider, or the patient has been referred to you for consultation.This is in compliance with the Medicare and[facility] Hospital[facility] EHR Incentive Program,which states Providers who transition their patient to another setting of careor provider of care or refers their patient to another provider of care shouldprovide summary care record for each transition of care or referral. Kraken Allergies No known active allergies Medications Medication [...] this topic Medical Devices Implanted Type Area Crystal Inspector Device Identifier Shelf Expiration Date Model / Serial / Lot Bone Putty [place] Dbm 1cc - [id number] Implanted:Qty : 1 on 09/27/2016 by Kameron Morales MD at [facility] Left: LEG [employer] - [employer] 09/23/2018 [id number] / [id number] / 0 Description:For fusion of pr oximal tibial and fibula fracture Scr Canc Lg Hex 6.5x70 32-Thrd - [id number] Implanted:Qty : 2 on 09/27/2016 by Kameron Moraels MD at [facility] Left: LEG [employer] [id number] / 0 / 0 Washer Lg Scr 13.0mm Od - [id number] Implanted:Qty : 2 on 09/27/2016 by Kameron Morales MD at [facility] Left: [employer] [id number] / 0 / 0 Advance Directives * Full Code (Latest Code Status on File) Date Activated Date Inactivated Comments 08/08/2017 1:07 PM 08/08/2017 5:07 PM Full code in effect for 30 days * Full Code Date Activated Date Inactivated Comments 09/27/2016 10:03 AM 09/27/2016 1:23 PM Full code i n effect for 30 days Care Teams Director Home Health Relationship Specialty Start Date End Date Lucero Fraire MD [address] [place] [address] PCP - General 12/03/15
--- OUTSIDE RECORDS SUMMARY | 2024-09-05 08:45 | XMS_ITS | Encounter Summary ---
Author Organization [facility] Address [address] [place] [address]. [place] [address] Care Team Providers Care Seed Corn Manager Production Name Role Phone Carmita German MD Primary Care Provider + [phone] Lucero Fraire MD Primary Care Provider [phone] Encounter Details Date Type Department Care Team (Late st Contact Info) Description 11/06/2010 Office Visit-[facility] [address] [place] [address] iTmothy Mcgraw MD [address] [facility] [address] [place] [address] Social History Tobacco Use Types Packs/Day Years Used Date Smoking Tobacco: Never Assessed Sex and Gender Information Value Date Recorded Sex Assigned at Not on file Gender Identity Not on file Sexual Orientation Not on file documented as of this encounter Progress Notes * Timothy Mcgraw MD - 11/25/2010 4:47 PM CST Progress Note Created by: Timothy Mcgraw M.D. [id number] DATE: 11/06/2010 SHASHANK HASTINGS DATE OF : 1960 AGE: [age] years old Referring Physician: CARMITA GERMAN Referring Clinic: [facility] CURRENT DIAGNOSES 1. - Abnormal EKG, 794.31 ALLERGIES NKDA MEDICATIONS (prior to changes made today) 1. Aspirin 81 mg Tablet, 1 p.o. daily 2. Simvastatin 80 mg Tablet, 1 p.o. daily 3. Nexium 40 mg Capsule, Delayed Release(E.C.), 1 p.o. daily 4. Lunesta 2 mg Tablet, 1 p.o. PRN as Directed 5. Nasonex 50 mcg/Actuation [place], Non-Aerosol, 1 p.o. PRN as Directed 6. [...] loss of sensation. He received thrombolysis at [facility]. I do not have complete records [...] exercises regularly and gym member; Occupation - [employer]; Residence - lives in [place] year round; Place of - [place]; REVIEW OF SYSTEMS GENERAL feels well, no [...] PRN as Directed, #0 Nasonex 50 mcg/Actuation [place], Non-Aerosol, 1 p.o. PRN as Directed, #0 [...] on filedocumented in this encounter Care Teams Seed Corn Manager Production Relationship Specialty Start Date End Date Carmita German MD [address] [place] [phone] PCP - General Family Practice 10/21/11 12/21/16 Lucero Fraire MD [place] [address] [address], [place] [address] PCP - General 10/20/17 documented as of this encounter
--- OUTSIDE RECORDS SUMMARY | 2024-09-05 08:45 | XMS_ITS | Encounter Summary ---
Author Organization [facility] Address [address] [place] [address] Care Team Providers Care Cooky Packer Name Role Phone Lucero Fraire MD Primary Care Provider Encounter Details Date Type Department Care Team (Late st Contact Info) Description 07/08/2016 Orders Only [facility] [address] [place] [address] Kameron Morales MD [address] [place] [address] Post-traumatic osteoarthritis of left knee Social History [...] leg documented in this encounter Care Teams Cooky Packer Relationship Specialty Start Date End Date Lucero Fraire MD [address] [place] [address] PCP - General 12/03/15 documented as of this encounter
== END 2024-09-03 08:21 | disposition home or self-care (01) ==
LOC: NFLDREF 09-05 08:42
PROVIDERS: PCP Physician Assistant Medical; Referring Provider Physician Assistant Medical; Visit Provider Physician Assistant Medical
DX: R79.89 Other specified abnormal findings of blood chemistry (principal); R53.83 Other fatigue; E11.9 Type 2 diabetes mellitus without complications
CPT/HCPCS: 84270; 84402; 84403

== ENCOUNTER 2024-09-21 09:45 | Outpatient (CLI) | payer MEDICARE, OTHER, SELFPAY ==
--- OUTSIDE RECORDS SUMMARY | 2024-09-21 09:47 | XMS_ITS | Clinical Summary ---
Author Organization [facility] Address [address] [place] [address] Care Team Providers Care Jig Fitter Name Role Phone None Reported, Pcp Primary Care Provider Unavail able Source Comments Patient records contain information from all sites at [facility]. For routine questions regarding patient records, call [phone] during business hours, M-F 8:00 AM - 5:00 PM Central Time. Record requests for emergency care only can be directed to [phone] at any time.[facility] Allergies No known active allergies Medications metFORMIN [...] week 04/04/2023 How often do you attend [facility] or alevism services? 1 to 4 times per year [...] and heating? Not hard at all 04/04/2023 [facility] [place] of Occupat ional Health - Occupational [...] place to sleep or slept in a half-way (including now)? No 04/04/2023 Nutrition Answer Date [...] AM CDT Legal Sex Male 3:24 PM DIET SUPERVISOR Gender Identity Male 04/04/2023 10:07 AM CDT Sexual Orientation Straight 04/04/2023 10 :07 AM CDT Last Filed Vital Signs Vital Sign Reading Time Taken Comments Blood Pressure 107/69 01/10/2024 3:47 PM DIET SUPERVISOR Pulse 75 01/10/2024 3:47 PM DIET SUPERVISOR Temperature 36.6 ??C (97.9 ??F) 06/20/2023 12:50 PM C DT Respiratory Rate 16 06/20/2023 1:15 PM CDT Oxygen Saturation 93% 06/20/2023 1:15 PM CDT Inhaled Oxygen Concentration - - Weight 100 kg (221 lb 3.7 oz) 01/10/2024 3:47 PM DIET SUPERVISOR Height 175.6 cm (5' 9.13) 01/10/2024 3:47 PM CS T Body Mass Index 32.54 01/10/2024 3:47 PM DIET SUPERVISOR Plan of Treatment Upcoming Encounters Date Type Department Care Team (Late st Contact Info) Description 10/17/2024 10:30 AM DIET SUPERVISOR [facility] [place], [place] [address] [place] [address] Cody Gutiérrez M.D. [address] [place] [address] Health Maintenance Due Date Last Done Comments CT Colonography 1960 Cologuard 1960 Diabetic Office Visit with Foot Exam 1960 Dilated Eye Exam 1960 FIT [...] of 2) 09/14/2019 07/20/2019 Creatinine Level (Kidney Function Test) 08/01/2021 08/01/2020, 01/18/2020 Pneumococcal vaccine (65+ years) (3 of 3 - PPSV23 or PCV20) 2023 04/13/2019, 02/16/1994 Depression Screening (Annual PHQ-2) 11/21/2023 Fall Risk Screen (Annual) 11/21/2023 COVID-19 Vaccine (2 - season) 2024 02/13/2021 Influenza Vaccine (#1) 2024 , 08/25/2022, 07/25/2021, Additional history exists Office Visit for Blood Pressure Check / Re-check 01/10/2025 01/10/2024 DTaP,Tdap,and Td Vaccines (4 - Td or Tdap) 04/02/2032 04/02/2022, 10/08/2014, 08/24/2012 Abdominal Aortic Aneurysm (AAA) Screen Completed 01/18/2020 IPV Vaccines Aged Out No longer eligi ble based on patient's age to complete this topic Medical Devices Implanted Type Area Nail Setter Device Identifier Shelf Expiration Date Model / Serial / Lot Lead Cuff Stimulation - [id number] - [id number] Implanted:Qty: 1 on 06/20/2023 by Nitin Gutiérrez M.D., M.S. at [facility] Responsive Neurostimulator Sys Right: Neck [employer] 03/21/2026 4063-45 CM / [id number] / Lead Certified Residential Medication Aide Ap Thor Rsp Sns - [id number] - [id number] Implanted:Qty: 1 on 06/20/2023 by Nitin Gutiérrez M.D., M.S. at [facility] Responsive Neurostimulator Sys Right: Chest [employer] 04/11/2026 4340 / [id number] / Gen Nrstm Sleep Apnea Thor - [id number] - [id number] Implanted:Qty: 1 on 06/20/2023 by Nitin Gutiérrez M.D., M.S. at [facility] Spinal Cord Stimulator Right: Chest [employer] 04/12/2026 3028 / [id number] / Insurance MEDICARE [facility] [employer] Advance Directives For more information, please contact: [phone] * Full Code (Latest Code Status on File) Date Activated Date Inactivated Comments 06/20/2023 1:42 PM 06/22/2023 2:04 AM Question Answer Comments Full Code: Discussed Care Teams Jig Fitter Relationship Specialty Start Date End Date None Reported, Pcp PCP - General Family Medicine 05/16/23
--- OUTSIDE RECORDS SUMMARY | 2024-09-21 09:48 | XMS_ITS ---
Author Organization [facility] Address [address] [place] [address] Care Team Providers Care Biodiesel Engineering Manager Name Role Phone Unavailable Unavailable Unavailable Surgery Details Not on file Complications Check Surgery Details section. Procedure Estimated Blood Loss Check Surgery Details section. Procedure Findings Check Surgery Details section. Procedure Specimens Taken Check Surgery Details section.
--- OUTSIDE RECORDS SUMMARY | 2024-09-21 09:48 | XMS_ITS | Referral Summary ---
Author Organization [facility] Address [facility] [address] Care Team Providers Care Termite Helper Name Role Phone Lucero Fraire MD Primary Care Provider [phone] Allergies No known active allergies Medications HYDROcodone-riri taminophen 5-325 MG per tablet Take 1-2 tablets by mouth every 4 hours as needed for pain. 15 tablet 0 10/06/2012 Active ibuprofen (ADVIL,MOTRIN) 800 MG tablet Take 1 tablet (800 mg) by mouth every 8 hours as needed for moderate pain 20 tablet 0 04/15/2015 Active SIMVASTATIN PO Activ e aspirin 81 MG tablet Take [...] Recorded Sex Assigned at Not on file Legal Sex Male 3:23 AM BRIDGE OPERATOR Gender Identity Not on file Sexual Orientation [...] CDT Plan of Treatment Not on file Insurance / [facility] [employer] Care Teams Termite Helper Relationship Specialty Start Date End Date Lucero Fraire MD [facility] [address] [place] [address] PCP - General 10/20/17
--- OUTSIDE RECORDS SUMMARY | 2024-09-21 09:48 | XMS_ITS | Clinical Summary ---
Author Organization [facility] Address [address] [place] [address] Care Team Providers Care Museum Registrar Name Role Phone Lucero Fraire MD Primary Care Provider [phone] Source Comments You are receiving this document as you are listed as the primary care provider,follow-up provider, or the patient has been referred to you for consultation.This is in compliance with the Medicare and[facility] Hospitalca[facility] EHR Incentive Program,which states Providers who transition their patient to another setting of careor provider of care or refers their patient to another provider of care shouldprovide summary care record for each transition of care or referral. [employer] Allergies No known active allergies Medications Medication [...] this topic Medical Devices Implanted Type Area Behavioral Health Assistant Device Identifier Shelf Expiration Date Model / Serial / Lot Bone Putty [place] Dbm 1cc - [id number] Implanted:Qty : 1 on 09/27/2016 by Kameron Morales MD at [facility] Left: LEG [employer]ónde - [employer] 09/23/2018 [id number] / [id number] / 0 Description:For fusion of pr oximal tibial and fibula fracture Scr Canc Lg Hex 6.5x70 32-Thrd - [id number] Implanted:Qty : 2 on 09/27/2016 by Kameron Morales MD at [facility] Left: LEG [employer] [id number] / 0 / 0 Washer Lg Scr 13.0mm Od - [id number] Implanted:Qty : 2 on 09/27/2016 by Kameron Morales MD at [facility] Left: LEG [employer] [id number] / 0 / 0 Advance Directives * Full Code (Latest Code Status on File) Date Activated Date Inactivated Comments 08/08/2017 1:07 PM 08/08/2017 5:07 PM Full code in effect for 30 days * Full Code Date Activated Date Inactivated Comments 09/27/2016 10:03 AM 09/27/2016 1:23 PM Full code i n effect for 30 days Care Teams Museum Registrar Relationship Specialty Start Date End Date Lucero Fraire MD [address] [place] [address] PCP - General 12/03/15
--- OUTSIDE RECORDS SUMMARY | 2024-09-21 09:48 | XMS_ITS | Encounter Summary ---
Author Organization [facility] Address [address] [place] [address] Care Team Providers Care Private Tutor Name Role Phone Lucero Fraire MD Primary Care Provider Encounter Details Date Type Department Care Team (Late st Contact Info) Description 07/08/2016 Orders Only [facility] [address] [place] [address] Kameron Morales MD [address] [place] [address] Post-traumatic osteoarthritis of left knee Social History [...] leg documented in this encounter Care Teams Private Tutor Relationship Specialty Start Date End Date Lucero Fraire MD [address] [place] [address] PCP - General 12/03/15 documented as of this encounter
--- OUTSIDE RECORDS SUMMARY | 2024-09-21 09:48 | XMS_ITS | Encounter Summary ---
Author Organization [facility] Address [address] [facility] [place] [address] Care Team Providers Care Appraisal Manager Name Role Phone Carmita German MD Primary Care Provider + [phone] Lucero Fraire MD Primary Care Provider [phone] Encounter Details Date Type Department Care Team (Late st Contact Info) Description 11/06/2010 Office Visit-[facility] [address] [place] [address] Timothy Mcgraw MD [address] [facility] [address] [place], [place] [address] Social History Tobacco Use Types Packs/Day Years Used Date Smoking Tobacco: Never Assessed Sex and Gender Information Value Date Recorded Sex Assigned at Not on file 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 [id number] DATE: 11/06/2010 SHASHANK HASTINGS DATE OF : 1960 AGE: [age] years old Referring Physician: CARMITA GERMAN Referring Clinic: [facility] CURRENT DIAGNOSES 1. - Abnormal EKG, 794.31 ALLERGIES NKDA MEDICATIONS (prior to changes made today) 1. Aspirin 81 mg Tablet, 1 p.o. daily 2. Simvastatin 80 mg Tablet, 1 p.o. daily 3. Nexium 40 mg Capsule, Delayed Release(E.C.), 1 p.o. daily 4. Lunesta 2 mg Tablet, 1 p.o. PRN as Directed 5. Nasonex 50 mcg/Actuation [place], Non-Aerosol, 1 p.o. PRN as Directed 6. Melatonin 3 mg Tablet Sustained Release, 1 p.o. PRN as Directed 7. Hydrocodone-Acetaminophen 7.5-750 mg Tablet, 1 p.o. PRN as Directed CHIEF COMPLAINTS Abnormal EKG strip during polysomnography HISTORY OF PRESENT ILLNESS Thank you for referring Mr. Hastigns. This is a very nice 50-year-old gentleman [...] loss of sensation. He received thrombolysis at [facility]. I do not have complete records [...] exercises regularly and gym member; Occupation - [employer]; Residence - lives in [place] year round; Place of - [place]; REVIEW OF SYSTEMS GENERAL feels well, no [...] PRN as Directed, #0 Nasonex 50 mcg/Actuation [place], Non-Aerosol, 1 p.o. PRN as Directed, #0 [...] on filedocumented in this encounter Care Teams Appraisal Manager Relationship Specialty Start Date End Date Carmita German MD [address] [place] [phone] PCP - General Family Practice 10/21/11 12/21/16 Lucero Fraire MD [address] [address] PCP - General 10/20/17 documented as of this encounter
--- OUTSIDE RECORDS SUMMARY | 2024-09-21 09:48 | XMS_ITS | Referral Summary ---
Author Organization [facility] Address [address] [place] [address] Care Team Providers Care Gynecological Assistant Name Role Phone None Reported, Pcp Primary Care Provider Unavail able Source Comments Patient records contain information from all sites at [facility]. For routine questions regarding patient records, call [phone] during business hours, M-F 8:00 AM - 5:00 PM Central Time. Record requests for emergency care only can be directed to [phone] at any time.[facility] Allergies No known active allergies Medications metFORMIN [...] week 04/04/2023 How often do you attend [facility] or [facility] services? 1 to 4 times per year [...] and heating? 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 Gender Identity Male 04/04/2023 10:07 AM CDT Sexual Orientation Straight 04/04/2023 10 :07 AM CDT Last Filed Vital Signs Vital Sign Reading Time Taken Comments Blood Pressure 107/69 01/10/2024 3:47 PM SIDE SHOW ENTERTAINER Pulse 75 01/10/2024 3:47 PM SIDE SHOW ENTERTAINER Temperature 36.6 ??C (97.9 ??F) 06/20/2023 12:50 PM C DT Respiratory Rate 16 06/20/2023 1:15 PM CDT Oxygen Saturation 93% 06/20/2023 1:15 PM CDT Inhaled Oxygen Concentration - - Weight 100 kg (221 lb 3.7 oz) 01/10/2024 3:47 PM SIDE SHOW ENTERTAINER Height 175.6 cm (5' 9.13) 01/10/2024 3:47 PM CS T Body Mass Index 32.54 01/10/2024 3:47 PM SIDE SHOW ENTERTAINER Plan of Treatment Upcoming Encounters Date Type Department Care Team (Late st Contact Info) Description 10/17/2024 10:30 AM SIDE SHOW ENTERTAINER Virtual [facility] in [place], [place] [address] [place] [address] Cody Gutiérrez M.D. [address] [place] [address] Medical Devices Implanted Type Area Groundwater Programs Director Device Identifier Shelf Expiration Date Model / Serial / Lot Lead Cuff Stimulation - [id number] - [id number] Implanted:Qty: 1 on 06/20/2023 by Nitin Gutiérrez M.D., M.S. at [facility] Responsive Neurostimulator Sys Right: Neck [employer] 03/21/2026 4063-45 CM / [id number] / Lead Digital Imaging Specialist Ap Thor Rsp Sns - [id number] - [id number] Implanted:Qty: 1 on 06/20/2023 by Nitin Gutiérrez M.D., M.S. at [facility] Responsive Neurostimulator Sys Right: Chest [employer] 04/11/2026 4340 / [id number] / Gen Nrstm Sleep Apnea Thor - [id number] - [id number] Implanted:Qty: 1 on 06/20/2023 by Nitin Gutiérrez M.D., M.S. at [facility] Spinal Cord Stimulator Right: Chest [employer] 04/12/2026 3028 / [id number] / Insurance MEDICARE [facility] [employer] Advance Directives For more information, please contact: [phone] * Full Code (Latest Code Status on File) Date Activated Date Inactivated Comments 06/20/2023 1:42 PM 06/22/2023 2:04 AM Question Answer Comments Full Code: Discussed Care Teams Gynecological Assistant Relationship Specialty Start Date End Date None Reported, Pcp PCP - General Family Medicine 05/16/23
--- OUTSIDE RECORDS SUMMARY | 2024-09-21 09:48 | XMS_ITS | Clinical Summary ---
Author Organization [facility] [place] [address] Care Team Providers Care Senior Instrumentation Engineer Name Role Phone None Primary Care [...] Influenza for age 65+ 07/22/2024 Care Teams Senior Instrumentation Engineer Relationship Specialty Start Date End Date None . PCP - General 02/09/18
--- OUTSIDE RECORDS SUMMARY | 2024-09-21 09:48 | XMS_ITS | Clinical Summary ---
Author Organization [facility] Address [address] [place] [address]. 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
[2024-09-21 11:21] VITALS: BMI 33.9
== END 2024-09-21 09:46 | disposition home or self-care (01) ==
LOC: NUTRITION 09:45
PROVIDERS: PCP Physician Assistant Medical; Visit Provider Dietitian, Registered
DX: E66.9 Obesity, unspecified (principal); Z71.3 Dietary counseling and surveillance
CPT/HCPCS: G0463

== ENCOUNTER 2024-10-05 12:21 | Outpatient (CLI) | payer MEDICARE, OTHER, SELFPAY ==
[2024-10-05 10:21] VITALS: BMI 33.4
--- OUTSIDE RECORDS SUMMARY | 2024-10-05 12:24 | XMS_ITS ---
Author Organization [facility] Address [address] [place] [address] Care Team Providers Care Pocket Stitcher Name Role Phone Unavailable Unavailable Unavailable Surgery Details Not on file Complications Check Surgery Details section. Procedure Estimated Blood Loss Check Surgery Details section. Procedure Findings Check Surgery Details section. Procedure Specimens Taken Check Surgery Details section.
--- OUTSIDE RECORDS SUMMARY | 2024-10-05 12:24 | XMS_ITS | Encounter Summary ---
Author Organization [facility] Address [address] [place] [address] Care Team Providers Care Tile Helper Name Role Phone Lucero Fraire MD Primary Care Provider [phone] Encounter Details Date Type Department Care Team (Late st Contact Info) Description 07/08/2016 Orders Only [facility] [address] [place] [address] Kameron Morales MD [address] [place] [address] Post-traumatic osteoarthritis of left knee Social History [...] leg documented in this encounter Care Teams Tile Helper Relationship Specialty Start Date End Date Lucero Fraire MD [address] [place] [address] PCP - General 12/03/15 documented as of this encounter
--- OUTSIDE RECORDS SUMMARY | 2024-10-05 12:24 | XMS_ITS | Encounter Summary ---
Author Organization [facility] Address [address] [facility] [place] [address] Care Team Providers Care Habitat Management Coordinator Name Role Phone Carmita German MD Primary Care Provider + [phone] Lucero Fraire MD Primary Care Provider [phone] Encounter Details Date Type Department Care Team (Late st Contact Info) Description 11/06/2010 Office Visit-[facility] [address] [place] [address] Timothy Mcgraw MD [address] [facility] [address] [place], [place] [address] Social History Tobacco Use Types Packs/Day Years Used Date Smoking Tobacco: Never Assessed Sex and Gender Information Value Date Recorded Sex Assigned at Not on file 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 [id number] DATE: 11/06/2010 SHASHANK HASTINGS DATE OF : 1960 AGE: [age] years old Referring Physician: CARMITA GERMAN Referring Clinic: [facility] CURRENT DIAGNOSES 1. - Abnormal EKG, 794.31 ALLERGIES NKDA MEDICATIONS (prior to changes made today) 1. Aspirin 81 mg Tablet, 1 p.o. daily 2. Simvastatin 80 mg Tablet, 1 p.o. daily 3. Nexium 40 mg Capsule, Delayed Release(E.C.), 1 p.o. daily 4. Lunesta 2 mg Tablet, 1 p.o. PRN as Directed 5. Nasonex 50 mcg/Actuation [place], Non-Aerosol, 1 p.o. PRN as Directed [...] loss of sensation. He received thrombolysis at [facility]. I do not have complete [...] exercises regularly and gym member; Occupation - [employer]; Residence - lives in [place] year round; Place of - [place]; REVIEW OF SYSTEMS GENERAL feels well, no [...] PRN as Directed, #0 Nasonex 50 mcg/Actuation [place], Non-Aerosol, 1 p.o. PRN as Directed, [...] on filedocumented in this encounter Care Teams Habitat Management Coordinator Relationship Specialty Start Date End Date Carmita German MD [address] [place] [phone] PCP - General Family Practice 10/21/11 12/21/16 Lucero Fraire MD [address] [address] PCP - General 10/20/17 documented as of this encounter
--- OUTSIDE RECORDS SUMMARY | 2024-10-05 12:24 | XMS_ITS | Clinical Summary ---
Author Organization [facility] Address [place], [place] [address] Care Team Providers Care Mainframe Analyst Name Role Phone None Primary Care Provider [...] 1 - PCV) 023 COVID-19 vaccine series ( - 2023-25 season) 4 Influenza for age 65+ 07/22/2024 Care Teams Mainframe Analyst Relationship Specialty Start Date End Date None . PCP - General 02/09/18
--- OUTSIDE RECORDS SUMMARY | 2024-10-05 12:24 | XMS_ITS | Referral Summary ---
Author Organization [facility] Address [facility] 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
--- OUTSIDE RECORDS SUMMARY | 2024-10-05 12:24 | XMS_ITS | Clinical Summary ---
Author Organization [facility] Address [address] [place] [address]. 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
--- OUTSIDE RECORDS SUMMARY | 2024-10-05 12:24 | XMS_ITS | Clinical Summary ---
[facility] Address [address] [place] [address] Care Team Providers Care Home Care Physical Therapist Name Role Phone Lucero Fraire MD Primary Care Provider [phone] Source Comments You are receiving this document as you are listed as the primary care provider,follow-up provider, or the patient has been referred to you for consultation.This is in compliance with the Medicare and[facility] EHR Incentive Program,which states Providers who transition their patient to another setting of careor provider of care or refers their patient to another provider of care shouldprovide summary care record for each transition of care or referral. [employer] Digital Keys Allergies No known active allergies Medications Medication [...] on patient's age to complete this topic Infant RSV Aged Out No longer eligi ble based on patient's age to complete this topic MCV4 Aged Out No longer eligi ble based on patient's age to complete this topic Medical Devices Implanted Type Area Automated Manufacturing Instructor Device Identifier Shelf Expiration Date Model / Serial / Lot Bone Putty [place] Dbm 1cc - [id number] Implanted:Qty : 1 on 09/27/2016 by Kameron Morales MD at [facility] Left: LEG [employer] - [employer] 09/23/2018 [id number] / [id number] / 0 Description:For fusion of pr oximal tibial and fibula fracture Scr Canc Lg Hex 6.5x70 32-Thrd - [id number] Implanted:Qty : 2 on 09/27/2016 by Kameron Morales MD at [facility] Left: LEG [employer] [id number] / 0 / 0 Washer Lg Scr 13.0mm Od - [id number] Implanted:Qty : 2 on 09/27/2016 by Kameron Morales MD at [facility] Left: LEG [employer] [id number] / 0 / 0 Advance Directives * Full Code (Latest Code Status on File) Date Activated Date Inactivated Comments 08/08/2017 1:07 PM 08/08/2017 5:07 PM Full code in effect for 30 days * Full Code Date Activated Date Inactivated Comments 09/27/2016 10:03 AM 09/27/2016 1:23 PM Full code i n effect for 30 days Care Teams Home Care Physical Therapist Relationship Specialty Start Date End Date Lucero Fraire MD [address] [place] [address] PCP - General 12/03/15
--- OUTSIDE RECORDS SUMMARY | 2024-10-05 12:24 | XMS_ITS | Referral Summary ---
Author Organization [facility] Address [address] [place] [address] Care Team Providers Care Senior Biostatistician Name Role Phone None Reported, Pcp Primary Care Provider Unavail able Source Comments Patient records contain information from all sites at [facility]. For routine questions regarding patient records, call [phone] during business hours, M-F 8:00 AM - 5:00 PM Central Time. Record requests for emergency care only can be directed to [phone] at any time.[facility] Allergies No known active allergies Medications [...] How often do you attend [facility] or buddhist services? 1 to 4 times [...] and heating? 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 Gender Identity Male 04/04/2023 10:07 AM CDT Sexual Orientation Straight 04/04/2023 10 :07 AM CDT Last Filed Vital Signs Vital Sign Reading Time Taken Comments Blood Pressure 107/69 01/10/2024 3:47 PM GENDER STUDIES PROFESSOR Pulse 75 01/10/2024 3:47 PM GENDER STUDIES PROFESSOR Temperature 36.6 ??C (97.9 ??F) 06/20/2023 12:50 PM C DT Respiratory Rate 16 06/20/2023 1:15 PM CDT Oxygen Saturation 93% 06/20/2023 1:15 PM CDT Inhaled Oxygen Concentration - - Weight 100 kg (221 lb 3.7 oz) 01/10/2024 3:47 PM GENDER STUDIES PROFESSOR Height 175.6 cm (5' 9.13) 01/10/2024 3:47 PM CS T Body Mass Index 32.54 01/10/2024 3:47 PM GENDER STUDIES PROFESSOR Plan of Treatment Upcoming Encounters Date Type Department Care Team (Late st Contact Info) Description 10/17/2024 10:30 AM GENDER STUDIES PROFESSOR [facility] [place], [place] [address] [place] [address] Cody Gutiérrez M.D. [address] [place] [address] Medical Devices Implanted Type Area Stationary Engineer Apprentice Device Identifier Shelf Expiration Date Model / Serial / Lot Lead Cuff Stimulation - [id number] - [id number] Implanted:Qty: 1 on 06/20/2023 by Nitin Gutiérrez M.D., M.S. at [facility] Responsive Neurostimulator Sys Right: Neck [employer] 03/21/2026 4063-45 CM / [id number] / Lead Trick Rodeo Rider Ap Thor Rsp Sns - [id number] - [id number] Implanted:Qty: 1 on 06/20/2023 by Nitin Gutiérrez M.D., M.S. at [facility] Responsive Neurostimulator Sys Right: Chest [employer] 04/11/2026 [id number] / [id number] / Gen Nrstm Sleep Apnea Thor - [id number] - [id number] Implanted:Qty: 1 on 06/20/2023 by Nitin Gutiérrez M.D., M.S. at [facility] Spinal Cord Stimulator Right: Chest [employer] 04/12/2026 [id number] / [id number] / Insurance MEDICARE [facility] [employer] Advance Directives For more information, please contact: [phone] * Full Code (Latest Code Status on File) Date Activated Date Inactivated Comments 06/20/2023 1:42 PM 06/22/2023 2:04 AM Question Answer Comments Full Code: Discussed Care Teams Senior Biostatistician Relationship Specialty Start Date End Date None Reported, Pcp PCP - General Family Medicine 05/16/23
== END 2024-10-05 12:22 | disposition home or self-care (01) ==
LOC: NUTRITION 12:21
PROVIDERS: PCP Physician Assistant Medical; Visit Provider Dietitian, Registered
DX: E66.9 Obesity, unspecified (principal); E11.9 Type 2 diabetes mellitus without complications; Z71.3 Dietary counseling and surveillance
CPT/HCPCS: G0463

== ENCOUNTER 2024-11-09 08:19 | Outpatient (CLI) | payer MEDICARE, OTHER, SELFPAY ==
[2024-11-09 10:47] VITALS: BMI 33.0
== END 2024-11-09 08:20 | disposition home or self-care (01) ==
LOC: NUTRITION 08:19
PROVIDERS: PCP Physician Assistant Medical; Visit Provider Dietitian, Registered
DX: E66.9 Obesity, unspecified (principal); E11.9 Type 2 diabetes mellitus without complications; Z71.3 Dietary counseling and surveillance
CPT/HCPCS: G0463

== ENCOUNTER 2024-11-15 17:23 | Emergency (ER) | payer MEDICARE, OTHER, SELFPAY ==
[2024-11-15 17:26] VITALS: BP 102/63; PULSE 76; RESP 18; TEMP 37.1; O2SAT 94; BMI 31.9
--- NOTE | 2024-11-15 17:44 | CRLHL7_ITS ---
For Patients: As a result of the Century Cures Act, medical imaging exams and procedure reports are released immediately into your electronic medical record. You may view this report before your referring provider. If you have questions, please contact your health care provider. Indication: Chest and back pain, shortness of breath Technique: CTA of the chest following 95 mL Isovue 370 IV contrast. Comparison: None Findings: Pulmonary arteries: No pulmonary embolism appreciated. Lungs: No consolidation. No effusion. No pneumothorax. Mild interlobular septal thickening. Geographic areas of mild ground-glass. Mild basilar interlobular septal thickening. Mediastinum: No acute abnormality appreciated. Mild calcified atherosclerosis. Mild cardiomegaly. Lymph nodes: Shotty nodes. Upper abdomen: Cholecystectomy. Prior splenectomy. There is a soft tissue lesion noted within the pancreatic tail measuring 3.7 centimeters, likely a splenule but can be evaluated with a nonemergent pancreatic protocol CT to ensure there is no pancreatic lesion. Soft tissues: Stimulator hardware noted in the right chest. Bones: No acute abnormality appreciated. Impression: 1. No pulmonary embolism appreciated. 2. Question heart failure and mild pulmonary edema. 3. Soft tissue lesion in the tail of the pancreas measures 3.7 centimeters. 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 Suspect this represents a pancreatic tail splenule, but a nonemergent outpatient pancreatic protocol CT is recommended to ensure there is no neoplasm. Please note that all CT scans at this facility use dose modulation, iterative reconstruction, and/or weight-based dosing when appropriate to reduce radiation dose to as low as reasonably achievable. Dictated by Lukasz Wesley MD @ 11/15/2024 8:23:31 PM (Electronically Signed)
--- NOTE | 2024-11-15 17:49 | ED.GENADULT ---
HPI - General Adult General Chief complaint: Shortness of Breath/Dyspnea Stated complaint: shortness of breath, lower abdomen pain Time Seen by Provider: 11/15/24 17:29 Source: patient History of Present Illness HPI narrative: Patient is a 64-year-old male here for evaluation of multiple symptoms. Most notably, he seems to have migratory pain that is sometimes in his lateral rib cage or flank area sometimes more in his back, sometimes more in his chest, sometimes more in his upper abdomen. He states that this started about 5 days ago and has been constant ever since. He notes that his symptoms are not positional, do not change with food, time of day, activity, or other factors. He has had a normal appetite. He has had no nausea vomiting, no diarrhea, no black or bloody stools, no urinary symptoms. He has chronic pain in his right leg, and has now developed some burning type pain in his toes. He is followed by primary care for chronic pain as well as [facility]. He is status post cholecystectomy as well as status post splenectomy, in addition to orthopedic fractures. He does not have history of DVT or PE, heart failure, or diagnosed COPD. He does have a history of tobacco use not current. Related Data Home Medications ?Medication ?Instructions ?Recorded ?Confirmed blood-glucose meter (Accu-Chek #1 ea 06/28/22 09/30/24 Guide Glucose Meter) aspirin 81 mg tablet,delayed 81 mg PO QDAY 07/07/22 11/15/24 release (Adult Low Dose Aspirin) Previous Rx's ?Medication ?Instructions ?Recorded clindamycin phosphate 1 % topical 1 applic topical QDAY #60 mL 09/23/22 solution lancets (Accu-Chek Softclix #100 ea 05/26/23 Lancets) ezetimibe 10 mg tablet 10 mg PO QDAY #90 tabs 11/01/23 fluoxetine 20 mg capsule 20 - 40 mg (1 - 2 x 20 mg) PO 11/01/23 DAILY for depressive disorder #90 caps pantoprazole 40 mg tablet,delayed 40 mg PO QDAY #90 tabs 11/01/23 release sucralfate 1 gram tablet (Carafate) 1 g PO Q4H PRN GERD #360 tabs 11/09/23 fluticasone propionate 50 1 spray intranasal BID #16 grams 11/10/23 mcg/actuation nasal spray,suspension blood sugar diagnostic (FreeStyle #100 ea 02/02/24 Lite Strips) cyclobenzaprine 10 mg tablet 10 mg PO .hs muscle spasm #30 tabs 03/23/24 valacyclovir 1 gram tablet 1,000 mg PO .PRN 5 days #15 tabs 04/06/24 dulaglutide 1.5 mg/0.5 mL 1.5 mg (0.5 mL) subcut QWEEK #6 mL 05/16/24 subcutaneous pen injector (Trulicity) testosterone 1.62 % (40.5 mg/2.5 0.5 packet topical QAM #75 grams 06/06/24 gram) transdermal gel packet (AndroGel) metformin 500 mg tablet,extended 2,000 mg (4 x 500 mg) PO QDAY #360 08/03/24 release 24 hr tabs rosuvastatin 40 mg tablet 40 mg PO QDAY #90 tabs 08/06/24 meloxicam 7.5 mg tablet 7.5 mg PO BID #180 tabs 09/17/24 tamsulosin 0.4 mg capsule (Flomax) 0.4 mg PO QHS #90 caps 09/17/24 propranolol 60 mg capsule,24 60 mg PO QDAY #90 caps 09/25/24 hr,extended release pregabalin 50 mg capsule 50 mg PO TID #90 caps 09/30/24 Allergies Allergy/AdvReac Type Severity Reaction Status Date / Time No Known Drug Allergies Allergy Verified 11/15/24 18:56 Review of Systems Status of ROS: Reports: 10 or more systems reviewed and unremarkable except as noted in History and below [facility] Medical History Abnormal CBC ?R79.89 - Other specified abnormal findings of blood chemistry (ICD-10) BPH loc w urin obs/LUTS ?N40.1 - Benign prostatic hyperplasia with lower urinary tract symptoms (ICD-10) Tick bite of back ?S30.860A - Insect bite (nonvenomous) of lower back and pelvis, initial encounter (ICD-10) ?W57.XXXA - Bitten or stung by nonvenomous insect and other nonvenomous arthropods, initial encounter (ICD-10) Chronic headaches ?R51.9 - Headache, unspecified (ICD-10) ?G89.29 - Other chronic pain (ICD-10) Fatigue ?R53.83 - Other fatigue (ICD-10) Chronic pain of left lower extremity ?M79.605 - Pain in left leg (ICD-10) ?G89.29 - Other chronic pain (ICD-10) Depression ?F32.A - Depression, unspecified (ICD-10) Cat bite of finger ?S61.259A - Open bite of unspecified finger without damage to nail, initial encounter (ICD-10) ?W55.01XA - Bitten by cat, initial encounter (ICD-10) Right bundle branch block ?I45.10 - Unspecified right bundle-branch block (ICD-10) Obstructive sleep apnea syndrome (03/11/15) ?G47.33 - Obstructive sleep apnea (adult) (pediatric) (ICD-10) History of stroke ?Z86.73 - Personal history of transient ischemic attack (TIA), and cerebral infarction without residual deficits (ICD-10) GERD (gastroesophageal reflux disease) ?K21.9 - Gastro-esophageal reflux disease without esophagitis (ICD-10) COVID-19 ?U07.1 - COVID-19 (ICD-10) Surgical History History of splenectomy ?Z90.81 - Acquired absence of spleen (ICD-10) History of cholecystectomy ?Z90.49 - Acquired absence of other specified parts of digestive tract (ICD-10) Family History Other Stroke Social History Narrative: Patient lives with his . Retired. Alcohol abuse- sobriety since 2007 Highest level of school completed/degree received: GED or equivalent Smoking Status: Former smoker What tobacco products do you use: cigarettes Smoking quit date/years: >15 years ago Do you use any of these nicotine containing products: None Nicotine containing products detail: Smoked cigarettes from [age]yrs Second hand tobacco smoke exposure: No How often do you have a drink containing alcohol: never How often do you have six or more drinks on one occasion: Never AUDIT-C Alcohol total score: 0 Non-prescribed substance use: denies use Caffeine: Yes (1-2 cups/day) service: No Exam Narrative: Exam Narrative: Vital signs reviewed In general, alert, nontoxic male. Speaks in full sentences, breathing comfortably. Head: Normocephalic, atraumatic. Eyes: Sclera clear. Pupils equal and reactive. ENT: Mucous membranes moist. Neck: Supple without adenopathy. Heart: Regular rate and rhythm without murmur. Lungs: Clear. No increased work of breathing, crackles or wheezes. No CVA tenderness. Back: Nontender to palpation. Abdomen: Soft, nontender to palpation. Extremities: Well perfused, pulses intact. No significant edema. Neurologic: Alert, conversant. Speech fluent, face symmetric. Moves all extremities equally. Skin: Warm, dry well perfused. Affect: Normal. Const: Vital Signs, click to edit/add: Vital Signs - 24 hr 11/15/24 17:26 Temperature 98.8 F Pulse Rate [Pulse Oximeter] 76 Respiratory Rate 18 Blood Pressure [Ri ght Upper Arm] 102/63 Pulse Oximetry 94 Oxygen Delivery Me thod Room Air Documenting provider has reviewed patient's vital signs: yes Course Course ED Course: At this time, etiology of the symptoms is a little unclear to me. I think pulmonary diagnoses such as PE, pneumonia, pneumothorax, pleural effusion need to be ruled out, and I think CT scan is probably the most efficient way to evaluate for all of these. I am checking labs including a CBC, troponin, metabolic panel, I am checking a lipase and LFTs to look for upper abdominal diagnoses. Gallbladder is absent and abdominal exam is very benign. He does not have urinary symptoms, but will check a UA to rule out UTI, evaluate for significant blood in the urine which might suggest need for abdominal CT. Based on exam, I do not think he otherwise needs abdominal imaging. Labs here tonight are notable for the following, [place] [address], a mildly elevated bilirubin of 2.1 with an normal alk-phos of 83, minimal elevations of AST at 39 and ALT at 64, minimal elevation of CRP at 1.2 and significant elevation of lipase at 987. However, patient's symptoms are atypical for pancreatitis. And I spoke with the radiologist after patient had his CT scan of the chest, there are no findings on CT to suggest pancreatitis. I reviewed the CT scan of his chest, I did not see evidence of pulmonary embolism. Read as negative for PE by Radiology, they note possible mild pulmonary edema, which also is not suggested by his clinical picture. 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 He did recommend that he have a pancreatic protocol CT done as an outpatient to definitively determine this is a splenule and not a pancreatic mass. In talking with the patient, he is actually aware of that finding, it sounds like it has been there for quite some time, he is not sure when exactly he was 1st told about it but his accident that resulted in splenectomy was in 1980. I have asked him to talk to his primary provider about this. I think if this is been seen on previous imaging and is stable further evaluation would not need to be done. Patient had an EKG which showed a right bundle branch block, normal sinus rhythm ventricular rate of 64, QT corrected of 437 milliseconds, normal AR interval and no acute ST segment changes. His troponin is 0, he has had these migratory pains for about 5 or 6 days, and I do not think this is primarily cardiac. Urinalysis shows the dip to be entirely negative. Micro is pending. Overall, discussed with him I do not have a clear explanation for his symptoms. Clinically I do not think this represents pancreatitis. He is entirely comfortable at this time. He does have a history of reflux or gastritis, he is on pantoprazole and sucralfate for that, symptoms are not overly suggestive of gastritis either. He has a diagnosis previously of rheumatoid arthritis which he has elected not to treat. My suspicion for symptoms being related to this or relatively low given that his CRP is 1.2. He does not appear to have any inflammatory arthritis findings on exam. I think overall it is reasonable to let him go home. I did suggest that we try a very brief trial of an NSAID such as ibuprofen for just a couple of days and see if he feels any better. Reviewed with him I would not continue it this past that as it may aggravate his stomach. Make sure to take with food and continue other GI medications. Discussed reasons to return such as fevers, significant abdominal pain, nausea or vomiting, significant shortness of breath or other worsening. Recommend primary care follow-up next week for recheck and review of the above. Vital Signs Vital signs: Initial Vital Signs Temperature 98.8 F 11/15/24 17:26 Temperature Source Temporal Artery Scan 11/15/24 17:26 Pulse Rate 76 11/15/24 17:26 Respiratory Rate 18 11/15/24 17:26 Blood Pressure 102/63 11/15/24 17:26 Blood Pressure Mean 76 11/15/24 17:26 Blood Pressure Position Sitting 11/15/24 17:26 Pulse Oximetry 94 11/15/24 17:26 Oxygen Delivery Method Room Air 11/15/24 17:26 Vital Signs Temperature 98.8 F 11/15/24 17:26 Pulse Rate 76 11/15/24 17:26 Respiratory Rate 18 11/15/24 17:26 Blood Pressure 102/63 11/15/24 17:26 Pulse Oximetry 94 11/15/24 17:26 Oxygen Delivery Method Room Air 11/15/24 17:26 Temperature 98.8 F 11/15/24 17:26 Pulse Rate 76 11/15/24 17:26 Respiratory Rate 18 11/15/24 17:26 Blood Pressure 102/63 11/15/24 17:26 Pulse Oximetry 94 11/15/24 17:26 Oxygen Delivery Method Room Air 11/15/24 17:26 Medical Decision Making Lab Data Labs: Lab Results 11/15/24 11/15/24 Range/Units 18:03 20:23 WBC 14.50 H (4.50-11.00) K/uL RBC 5.03 (4.30-5.90) m/uL Hgb 14.3 (13.5-17.5) gm/dL Hct 43.9 (37.0-53.0) % MCV 87 (80-100) fL MCH 28 (26-34) pg MCHC 33 (32-36) gm/dL RDW Coeff of Toy 13.5 (11.5-15.5) % Plt Count 270 (140-440) K/uL Neut % (Auto) 54.7 (42.0-72.0) % Lymph % (Auto) 29.0 (20-44) % [place] % (Auto) 12.9 H (0.0-11.0) % Eos % (Auto) 2.7 (0.0-7.0) % Baso % (Auto) 0.4 (0.0-3.0) % Neut # (Auto) 7.90 H (1.7-7.0) K/uL Lymph # (Auto) 4.20 H (0.90-2.90) K/uL [place] # (Auto) 1.90 H (0.00-0.90) K/UL Eos # (Auto) 0.40 (0.00-0.50) K/uL Baso # (Auto) 0.10 (0.00-0.30) K/uL Abs Immat Gran (auto) 0.00 (0.00-0.30) K/uL Imm/Tot Granulo (auto) 0.3 % Sodium 137 (135-149) mmol/L Potassium 4.4 (3.6-5.1) mmol/L Chloride 105 (96-114) mmol/L Carbon Dioxide 26 (20-32) mmol/L Anion Gap 6 L (7-15) mEq/L BUN 16 (7-30) mg/dL Creatinine 1.1 (0.5-1.5) mg/dL Estimated Creat Clear 63.91 Estimated GFR 74 ml/min Glucose 130 H (60-115) mg/dL Calcium 8.9 (8.4-10.6) mg/dL Total Bilirubin 2.1 H (0.1-1.5) mg/dL Direct Bilirubin 0.4 (0.0-0.5) mg/dL AST 39 H (12-35) U/L ALT 64 H (4-50) U/L Alkaline Phosphatase 83 (40-150) U/L C-Reactive Protein 1.2 H (0.5-1.0) mg/dL Total Protein 6.7 (6.0-8.3) g/dL Albumin 4.0 (3.3-5.0) g/dL Lipase 987 H (23-300) U/L Urine Color Yellow (Yellow) Urine Appearance Clear (Clear) Urine pH 6.0 (5.0-8.5) Ur Specific [place] 1.010 (1.000-1.030) Urine Protein Negative (Negative) Urine Glucose (UA) Negative (Negative) Urine Ketones Negative (Negative) Urine Blood Negative (Negative) Urine Nitrite Negative (Negative) Urine Bilirubin Negative (Negative) Urine Urobilinogen 0.2 (0.2-1.0) Ur Leukocyte Esterase Negative (Negative) SARS-CoV-2 (PCR) Negative SARS-CoV-2 (Negative) Influenza Type A (PCR) Negative PCR FLU A (Negative) Influenza Type B (PCR) Negative PCR FLU B (Negative) RSV (PCR) Negative PCR RSV (Negative) POC Troponin I 0.00 L (0.01-0.04) ng/ml Discharge Plan Discharge Clinical Impression: Back pain Patient Disposition: Home, Self-Care Condition: Stable Additional Instructions: Recommend a brief trial of ibuprofen 400 mg twice daily for couple of days. I would not continue this medicine significantly longer than that as it may agitate your stomach. You have a couple of findings today that I would recommend that you discuss in follow-up with Kassandra Marshall. Your lipase is elevated today at 980. The radiologist believes this is likely related to the splenule by your pancreas we discussed. However, if this has never been formally evaluated, it may be that you should have an outpatient CT scan, pancreatic protocol, to further assess. Your bilirubin was very slightly elevated today as well, and this should be rechecked at clinic. An exact cause for your symptoms is not clear. If you are worsening, have new symptoms such as fever, significant shortness of breath, vomiting, significant abdominal pain, black or bloody stools, or other acute worsening, return to the emergency department. Otherwise, please follow-up with Kassandra next week for recheck and to discuss the above. Prescriptions: No Action (DME) blood-glucose meter [Accu-Chek Guide Glucose Meter] [facility] See Rx Instructions .ROUTE .MEDSUPPLY Qty: 1 Patient Comments: USE TO CHECK GLUCOSE ONCE DAILY Rx Instructions: As directed aspirin [Adult Low Dose Aspirin] 81 mg tablet,delayed release (DR/EC) 81 mg PO QDAY clindamycin phosphate 1 % solution 1 applic topical QDAY Qty: 60 1RF Trulicity 1.5 mg/0.5 mL pen injector 1.5 mg subcut QWEEK Qty: 6 2RF Rx Instructions: once weekly pregabalin 50 mg capsule 50 mg PO TID Qty: 90 0RF Rx Instructions: 1 capsule 3 times daily (DME) lancets [Accu-Chek Softclix Lancets] Misc See Rx Instructions .ROUTE .MEDSUPPLY Qty: 100 3RF Rx Instructions: Once daily and as needed for hypoglycemia events fluoxetine 20 mg capsule 20 - 40 mg PO DAILY Qty: 90 3RF pantoprazole 40 mg tablet,delayed release (DR/EC) 40 mg PO QDAY Qty: 90 3RF Patient Comments: TAKE 1 TABLET BY MOUTH DAILY Rx Instructions: for acid reflux ezetimibe 10 mg tablet 10 mg PO QDAY Qty: 90 3RF Rx Instructions: once daily for cholesterol sucralfate [Carafate] 1 gram tablet 1 g PO Q4H PRN (Reason: GERD) Qty: 360 1RF Rx Instructions: Take 1 tablet every 4 hours as needed max use: 4 times per day for acid reflux fluticasone propionate 50 mcg/actuation spray,suspension 1 spray intranasal BID Qty: 16 2RF (DME) FreeStyle Lite Strips Strip See Rx Instructions .Route Qty: 100 3RF Rx Instructions: once daily cyclobenzaprine 10 mg tablet 10 mg PO .hs Qty: 30 2RF valacyclovir 1 gram tablet 1,000 mg PO .PRN 5 Days Qty: 15 3RF Rx Instructions: one tablet once daily x 5 days as needed for cold sore outbreaks provided 3 episode supply testosterone [AndroGel] 1.62 % (40.5 mg/2.5 gram) gel in packet 0.5 packet topical QAM Qty: 75 2RF Rx Instructions: massage 1/2 packet per day to shoulder upper arms for 2 months metformin 500 mg tablet extended release 24 hr 2,000 mg PO QDAY Qty: 360 1RF Rx Instructions: 4 tablets once daily for diabetes rosuvastatin 40 mg tablet 40 mg PO QDAY Qty: 90 3RF Rx Instructions: once daily for cholesterol meloxicam 7.5 mg tablet 7.5 mg PO BID Qty: 180 1RF Rx Instructions: 1 tablet twice daily for pain with food tamsulosin [Flomax] 0.4 mg capsule 0.4 mg PO QHS Qty: 90 1RF propranolol 60 mg capsule,extended release 24 hr 60 mg PO QDAY Qty: 90 1RF Rx Instructions: once daily for headache prevention Follow Up/Referrals: Kassandra Marshall PA-C [Primary Care Provider] - Stand Alone [facility]: [facility]
[2024-11-15 18:23] LABS: Basophils Percent Auto 0.4 % (0.0-3.0); Eosinophils Percent Auto 2.7 % (0.0-7.0); Hematocrit 43.9 % (37.0-53.0); Hemoglobin* 14.3 gm/dL (13.5-17.5); Immature Granulocytes Pct Auto 0.3 %; Mean Corpuscular HGB Conc 33 gm/dL (32-36); Mean Corpuscular Hemoglobin 28 pg (26-34); Mean Corpuscular Volume 87 fL (80-100); Monocytes Percent Auto 12.9 % (0.0-11.0); Neutrophils Percent Auto 54.7 % (42.0-72.0); Platelet Count* 270 K/uL (140-440); RDW Coefficient of Variation % 13.5 % (11.5-15.5); Red Blood Count 5.03 m/uL (4.30-5.90)
[2024-11-15 18:25] LABS: Slide Review Reflex No
[2024-11-15 18:43] LABS: Chloride* 105 mmol/L (96-114); Potassium* 4.4 mmol/L (3.6-5.1); Sodium* 137 mmol/L (135-149)
[2024-11-15 18:45] LABS: Creatinine* 1.1 mg/dL (0.5-1.5); Est. Creatinine Clearance* 63.91; Estimated Glomerular Filt Rate 74 ml/min
[2024-11-15 18:46] LABS: Alanine Aminotransferase* 64 U/L (4-50); Alkaline Phosphatase* 83 U/L (40-150); Anion Gap 6 mEq/L (7-15); Aspartate Amino Transferase* 39 U/L (12-35); Bilirubin Direct* 0.4 mg/dL (0.0-0.5); Bilirubin Total* 2.1 mg/dL (0.1-1.5); Blood Urea Nitrogen* 16 mg/dL (7-30); Calcium* 8.9 mg/dL (8.4-10.6); Carbon Dioxide* 26 mmol/L (20-32); Glucose* 130 mg/dL (60-115); Lipase* 987 U/L (23-300); Total Protein* 6.7 g/dL (6.0-8.3)
[2024-11-15 18:49] LABS: C Reactive Protein* 1.2 mg/dL (0.5-1.0)
[2024-11-15 19:11] LABS: PCR FLU A Negative PCR FLU A (Negative); PCR FLU B Negative PCR FLU B (Negative); PCR RSV Negative PCR RSV (Negative); SARS PCR* Negative SARS-CoV-2 (Negative)
[2024-11-15 20:31] LABS: Appearance Urine Clear (Clear); Bilirubin Urine Negative (Negative); Blood Urine Negative (Negative); Color Urine Yellow (Yellow); Glucose Urine Negative (Negative); Ketones Urine Negative (Negative); Leukocyte Esterase Urine Negative (Negative); Nitrite Urine Negative (Negative); Protein Urine Negative (Negative); Urobilinogen Urine 0.2 (0.2-1.0)
[2024-11-15 21:04] LABS: RBC Urine 0-2 (0-2); Squamous Epithelial Cell Urine Few (None-Few); WBC Urine 0-2 (0-5)
== END 2024-11-15 21:30 | disposition home or self-care (01) ==
PROVIDERS: Emergency Provider Emergency Medicine; PCP Physician Assistant Medical
DX: M54.9 Dorsalgia, unspecified (principal); R06.02 Shortness of breath
CPT/HCPCS: 36415; 71275; 80048; 80076; 81001; 83690; 84484; 85025; 86140; 87631; 93005; 99284; 99285; Q9967

== ENCOUNTER 2024-11-20 08:30 | Outpatient (CLI) | payer MEDICARE, OTHER, SELFPAY | END 2024-11-20 08:31 | disposition home or self-care (01) | PROVIDERS: PCP Physician Assistant Medical; Visit Provider Emergency Medicine | DX: I10 Essential (primary) hypertension (principal); R10.9 Unspecified abdominal pain | CPT/HCPCS: 80048; 80076; 83690; 86140 ==

== ENCOUNTER 2024-11-22 15:41 | Outpatient (CLI) | payer MEDICARE, OTHER, SELFPAY ==
--- NOTE | 2024-11-22 16:00 | CRLHL7_ITS ---
For Patients: As a result of the Century Cures Act, medical imaging exams and procedure reports are released immediately into your electronic medical record. You may view this report before your referring provider. If you have questions, please contact your health care provider. Indication: GENERALIZED ABDOMINAL PAIN, PATIENT NOTES PAIN MORE ON LEFT SIDE, HISTORY OF DIVERTICULITIS Technique: CT Abdomen/Pelvis WITH 106 CC ISOVUE [address] Please note that all CT scans at this facility use dose modulation, iterative reconstruction, and/or weight-based dosing when appropriate to reduce radiation dose to as low as reasonably achievable. Comparison: 11/03/21 Findings: Incidental 3.6 millimeter nodule within the right lung which does not require follow-up. This area was not included on the prior CT. Scarring in both lung bases. No pleural effusion. There is no intrahepatic mass. The gallbladder is absent. No biliary obstruction. Decreased attenuation of the hepatic parenchyma is present. The pancreas is normal. Splenosis in the left upper quadrant again noted. Adrenal glands are normal. Sub cm cyst upper pole right kidney is similar. The bladder is normal. The prostate is not enlarged. Sigmoid diverticulosis. No diverticulitis. No bowel obstruction, free air, free fluid or abscess. No fracture. Small umbilical hernia containing fat. Terminal ileum is unremarkable. No abnormality of the appendix. Impression: Sigmoid diverticulosis. No evidence of diverticulitis. Hepatic steatosis. Chronic incidental splenosis. Please note that all CT scans at this facility use dose modulation, iterative reconstruction, and/or weight-based dosing when appropriate to reduce radiation dose to as low as reasonably achievable. Dictated by Gurinder Parker MD @ 11/23/2024 10:00:27 AM (Electronically Signed)
== END 2024-11-22 15:42 | disposition home or self-care (01) ==
LOC: CT 15:44
PROVIDERS: PCP Physician Assistant Medical; Visit Provider Emergency Medicine
DX: R10.84 Generalized abdominal pain (principal); K57.30 Diverticulosis of large intestine without perforation or abscess without bleeding; K76.0 Fatty (change of) liver, not elsewhere classified
CPT/HCPCS: 74177; Q9967

== ENCOUNTER 2024-12-03 10:55 | Outpatient (CLI) | payer MEDICARE, OTHER, SELFPAY | END 2024-12-03 10:56 | disposition home or self-care (01) | PROVIDERS: PCP Physician Assistant Medical; Visit Provider Physician Assistant Medical | DX: R19.7 Diarrhea, unspecified (principal); Z12.5 Encounter for screening for malignant neoplasm of prostate | CPT/HCPCS: 80053; 83690; G0103 ==

== ENCOUNTER 2024-12-14 10:38 | Outpatient (CLI) | payer MEDICARE, OTHER, SELFPAY ==
[2024-12-14 10:38] VITALS: BMI 31.7
== END 2024-12-14 10:39 | disposition home or self-care (01) ==
LOC: NUTRITION 01-09 14:01
PROVIDERS: PCP Physician Assistant Medical; Visit Provider Dietitian, Registered
DX: E66.9 Obesity, unspecified (principal); Z68.33 Body mass index [BMI] 33.0-33.9, adult; Z71.3 Dietary counseling and surveillance
CPT/HCPCS: G0463

== ENCOUNTER 2024-12-17 15:23 | Outpatient (CLI) | payer MEDICARE, OTHER, SELFPAY | END 2024-12-17 15:24 | disposition home or self-care (01) | LOC: NFLDREF 12-24 01:08 | PROVIDERS: PCP Physician Assistant Medical; Referring Provider Physician Assistant Medical; Visit Provider Physician Assistant Medical | DX: R19.7 Diarrhea, unspecified (principal) | CPT/HCPCS: 87045; 87046; 87338; 87427; 87493; 87798 ==

== ENCOUNTER 2024-12-18 10:15 | Outpatient (CLI) | payer MEDICARE, OTHER, SELFPAY | END 2024-12-18 10:16 | disposition home or self-care (01) | LOC: NFLDREF 01-01 23:07 | PROVIDERS: PCP Physician Assistant Medical; Referring Provider Physician Assistant Medical; Visit Provider Physician Assistant Medical | DX: R19.7 Diarrhea, unspecified (principal) | CPT/HCPCS: 87177; 87209 ==

== ENCOUNTER 2025-02-25 10:31 | Outpatient (CLI) | payer MEDICARE, OTHER, SELFPAY ==
--- NOTE | 2025-02-25 23:21 | PC.NURSE ---
[facility], called patient and had him check bs it was 534, it went up from 429. pt said he has been eating alot of sweets. could not get a hold of the md ammonia refrigeration worker. advise pt to come in to ER and get seen by MD.
== END 2025-02-25 10:32 | disposition home or self-care (01) ==
PROVIDERS: PCP Physician Assistant Medical; Visit Provider Physician Assistant Medical
DX: R79.89 Other specified abnormal findings of blood chemistry (principal); R53.83 Other fatigue; E11.9 Type 2 diabetes mellitus without complications; M06.9 Rheumatoid arthritis, unspecified; E78.5 Hyperlipidemia, unspecified
CPT/HCPCS: 80053; 80061; 82043; 82570; 82607

== ENCOUNTER 2025-02-25 23:59 | Emergency (ER) | payer MEDICARE, OTHER, SELFPAY ==
--- OUTSIDE RECORDS SUMMARY | 2025-02-26 00:02 | XMS_ITS | Clinical Summary ---
[facility] Address [address] [place] [address] Care Team Providers Care Children'S Service Worker Name Role Phone Lucero Fraire MD Primary Care Provider Source Comments You are receiving this document as you are listed as the primary care provider,follow-up provider, or the patient has been referred to you for consultation.This is in compliance with the Medicare and[facility] EHR Incentive Program,which states Providers who transition their patient to another setting of careor provider of care or refers their patient to another provider of care shouldprovide summary care record for each transition of care or referral. [facility] Allergies No known active allergies Medications mometasone (AKA NASONEX) 50 MCG/ACT nasal solution 2 sprays by Each Nostril route daily (every 24 hours). 17 3 10/11/20 08 Active esomeprazole (AKA NEXIUM) 20 MG capsule Take 1 capsule by mouth daily (every 24 hours). LW Addl Instr:Indicated for: Acid Reflux 30 11/26/19 08 Active unknown medication Indications: PN: 10/11 08 Active simvastatin (AKA ZOCOR) 10 MG tablet Take 1 tablet by mouth every evening. LW Addl Instr:Indicated for: High Cholesterol 90 3 10/11/20 08 Active aspirin 81 MG tablet Take 1 tablet by mouth daily (every 24 hours). 90 3 10/11/20 08 Active HYDROcodone-acetam inophen (AKA VICODIN,LORTAB) 5-500 MG tablet Take 1 tablet by mouth every 6 hours as needed. 07/03/20 11 Active buPROPion (WELLBUTRIN) 75 MG tabletIndications: PUSHPA MERCADO Oct 08, 2014 4:49 PM Pt unsure of strength Take 75 mg by mouth 3 times daily. 10/08/20 14 Active pantoprazole (PROTONIX) 40 MG tablet Take 40 mg by mouth daily. Active aspirin EC (ECOTRIN) 325 MG enteric coated tablet Take 1 Tab by mouth daily. 30 Tab 0 09/27/20 16 Active acetaminophen (TYLENOL) 325 MG tablet Take 1-2 Tabs by mouth every 4 hours as needed for Fever. Maximum acetaminophen dose is 4000 mg in 24 hours. 100 Tab 0 09/27/20 16 Active oxyCODONE (ROXICODONE) 5 MG immediate release tablet Take 1 Tab by mouth every 4 hours as needed for Pain. 40 Tab 0 10/04/20 16 Active oxyCODONE (ROXICODONE) 5 MG immediate release tablet Take 1 Tab by mouth every 4 hours as needed. 60 Tab 0 10/11/20 16 Active Meloxicam (MOBIC) 15 MG tablet Take 1 Tab by mouth daily. 30 Tab 0 10/11/20 16 Active HYDROcodone-acetam inophen (NORCO) 5-325 MG tabletIndications: Surgery follow-up,Left knee pain, unspecified chronicity Take 1-2 Tabs by mouth every 8 hours as needed. 60 Tab 0 10/25/20 16 Active escitalopram oxalate (LEXAPRO) 5 MG tablet [...] 4000 mg in 24 hours. 50 Tab 08/08/20 17 Active HYDROcodone-acetam inophen (NORCO) 5-325 MG tablet Take 1 Tab by mouth every 6 hours as needed for Pain for up to 30 doses. Maximum acetaminophen dose is 4000 mg in 24 hours. 30 Tab 08/08/20 17 Active ondansetron (ZOFRAN-ODT) 4 MG disintegrating tablet Take 1 Tab by mouth every 8 hours as needed for Nausea (Vomiting) for up to 4 doses. Dissolve tablet on tongue. 4 Tab 08/08/20 17 Active Active Problems Problem Noted Date Diagnosed Date Tobacco use disorder 04/27/2003 Overview (07/13/2017): Tobacco Abuse Lumbago 04/27/2003 Overview (07/13/2017): Pain Low Back Immunizations Immunization Administration Dates Next Due Hib (ActHIB) 02/16/1994 PPSV23 (Pneumovax) 02/16/1994 TDAP (BOOSTRIX) 10/08/2014 Social History Tobacco Use Types Packs/Day Years Used Date Smoking Tobacco: Former Smokeless Tobacco: Never Comments:Quit smoking: Alcohol Use Standard Drinks/Week Comments No 0 (1 standard drink = 0.6 oz pur e alcohol) Sex and Gender Information Value Date Recorded Sex Assigned at Not on file Legal Sex Male 4:21 AM CDT Gender Identity Not on file Sexual Orientation Not on file Last Filed Vital Signs Vital Sign Reading Time Taken Comments Blood Pressure 99/62 08/08/2017 2:22 PM CDT Pulse 61 08/08/2017 2:22 PM CDT Temperature 36.4 C (97.5 F) 08/08/2017 2:22 PM CDT Respiratory Rate 16 [...] 1960 Adult Preventive Visit 1976 Cholesterol 1993 Pneumococcal 50+ Yrs (2 of 2 - PCV) 2008 02/16/1994 Zoster/Shingles (1 of 2) 2008 COVID-19 Vaccine ( - 2023-2 5 season) 2024 Influenza (#1) [...] on patient's age to complete this topic Meningococcal B Aged Out No longer el igible based on patient's age to complete this topic Medical Devices Implanted Type Area Medicaid Biller Device Identifier Shelf Expiration Date Model / Serial / Lot Bone Putty Atiya Dbm 1cc - [id number] Implanted:Qty : 1 on 09/27/2016 by Kameron Morales MD at [facility] Left: LEG Medtronic - [employer] 09/23/2018 [id number] / [id number] / 0 Description:For fusion of pr oximal tibial and fibula fracture Scr Canc Lg Hex 6.5x70 32-Thrd - [id number] Implanted:Qty : 2 on 09/27/2016 by Kameron Morales MD at [facility] Left: LEG [employer] [id number] / 0 / 0 Washer Lg Scr 13.0mm Od - [id number] Implanted:Qty : 2 on 09/27/2016 by Kameron Morales MD at [facility] Left: LEG [employer] [id number] / 0 / 0 Insurance [facility] [place] [employer] [place] [employer] Advance Directives * Full Code (Latest Code Status on File) Date Activated Date Inactivated Comments 08/08/2017 1:07 PM 08/08/2017 5:07 PM Full code in effect for 30 days * Full Code Date Activated Date Inactivated Comments 09/27/2016 10:03 AM 09/27/2016 1:23 PM Full code i n effect for 30 days Care Teams Children'S Service Worker Relationship Specialty Start Date End Date Lucero Fraire MD [address] [place] [address] PCP - General 12/03/15
--- OUTSIDE RECORDS SUMMARY | 2025-02-26 00:02 | XMS_ITS | Clinical Summary ---
Author Organization [facility] Address [address] [place] [address] Care Team Providers Care Copy Camera Operator Name Role Phone None Reported, Pcp Primary Care Provider Unavail able Source Comments Patient records contain information from all sites at [facility]. For routine questions regarding patient records, call [phone] during business hours, M-F 8:00 AM - 5:00 PM Central Time. Record requests for emergency care only can be directed to [phone] at any time.[facility] Allergies No known active allergies Medications metFORMIN [...] Tobacco: Never Tobacco Cessation:Counseling Given: Not Answered [facility] Lovethelook[facility] Answer Date Recorded In the past 12 months has e LoiLo, gas, oil, or water [employer] threatened to shut off services in your home? No 10/11/2024 Humiliation, Afraid, Rape, and Kick questionnair e [...] often do you attend chur ch or pentecostalism services? 1 to 4 times per year 04/04/2023 Do you belong to any clubs o r organizations such as judaism groups, unions, fraternal or athletic groups, or [...] and heating? Not hard at all 04/04/2023 [facility] - Occupational Stress Questionnaire Answer [...] to strenuous exercise (like a brisk walk)? Patient declined On average, how many minutes do you engage in exercise at this level? 0 min 10/11/2024 Hunger Vital Sign Answer Date Recorded Within the past 12 months, y ou worried that your food would run out before you got the money to buy more. Never true 10/11/20 24 Within the past 12 months, t he food you bought just didn't last and you didn't have money to get more. Never true 10/11/2024 PRAPARE - Transportation Answer Date Re corded In the past 12 months, has l ack of transportation kept you from medical appointments or from getting medications? No 09/22 In the past 12 months, has l ack of transportation kept you from meetings, work, or from getting things needed for daily living? No 10/11/2024 Nutrition Answer Date Recorded On average, how many serving s of fruits and vegetables do you eat per day (serving size is equal to 1 cup or approximately the size of a tennis ball)? 0-2 10/11/2024 Dental Answer Date Recorded Dental: Regular Dentist Yes 04/04/20 Employment Answer Date Recorded Employment status Permanently disabled Housing Stability Answer Date Recorded What is your living situation today? [facility] 10/11/2024 Education Answer Date Recorded What is the highest level of school you have completed or the highest degree you have received? GED or equivalent Sex and Gender Information Value Date Recorded Sex Assigned at Male 04/04/2023 10:07 AM CDT Legal Sex Male 3:24 PM JAVA J2EE LEAD Gender Identity Male 04/04/2023 10:07 AM CDT Sexual Orientation Straight 04/04/2023 10 :07 AM CDT Last Filed Vital Signs Vital Sign Reading Time Taken Comments Blood Pressure 107/69 01/10/2024 3:47 PM JAVA J2EE LEAD Pulse 75 01/10/2024 3:47 PM JAVA J2EE LEAD Temperature 36.6 C (97.9 F) 06/20/2023 12:50 PM CDT Respiratory Rate 16 06/20/2023 1:15 PM CDT Oxygen Saturation 93% 06/20/2023 1:15 PM CDT Inhaled Oxygen Concentration - - Weight 100 kg (221 lb 3.7 oz) 01/10/2024 3:47 PM JAVA J2EE LEAD Height 175.6 cm (5' 9.13) 01/10/2024 3:47 PM CS T Body Mass Index 32.54 01/10/2024 3:47 PM JAVA J2EE LEAD Plan of Treatment Health Maintenance Due Date Last Done Comments CT Colonography 1960 Cologuard 1960 Diabetic Office Visit with Foot Exam 1960 Dilated Eye Exam 1960 FIT 1960 Hemoglobin A1C 1958 Hepatitis C Screening 1960 Lipid (Cholesterol) Screening 1958 Urine Albumin 1960 Colonoscopy 01/13/2016 01/13/2006 Colorectal Cancer Screening 01/13/2016 Hepatitis B Vaccines (1 of 3 - Risk 3-dose series) 2018 Zoster Vaccines (2 of 2) 09/14/2019 07/20/2019 Creatinine Level (Kidney Function Test) 08/01/2021 08/01/2020, 01/18/2020 Pneumococcal vaccine (50+ years) (3 of 3 - PCV20 or PCV21) 04/13/2024 04/13/2019, 02/16/1994 COVID-19 Vaccine (2 - season) 2024 02/13/2021 Influenza Vaccine (#1) 2024 3, 08/25/2022, 07/25/2021, Additional history exists Depression Screening (Annual PHQ-2) 11/21/2024 Fall Risk Screen (Annual) 11/21/2024 Office Visit for Blood Pressure Check / Re-check 01/10/2025 01/10/2024 DTaP,Tdap,and Td Vaccines (4 - Td or Tdap) 04/02/2032 04/02/2022, 10/08/2014, 08/24/2012 Abdominal Aortic Aneurysm (AAA) Screen Completed 01/18/2020 IPV Vaccines Aged Out No longer eligi ble based on patient's age to complete this topic Medical Devices Implanted Type Area Clinical Review Nurse Device Identifier Shelf Expiration Date Model / Serial / Lot Lead Cuff Stimulation - [id number] - [id number] Implanted:Qty: 1 on 06/20/2023 by Nitin Gutiérrez M.D., M.S. at [facility] Responsive Neurostimulator Sys Right: Neck [employer] 03/21/2026 4063-45 CM / [id number] / Lead Assistant Director Of Security Ap Thor Rsp Sns - [id number] - [id number] Implanted:Qty: 1 on 06/20/2023 by Nitin Gutiérrez M.D., M.S. at [facility] Responsive Neurostimulator Sys Right: Chest [employer] 04/11/2026 [id number] / [id number] / Gen Nrstm Sleep Apnea Thor - [id number] - [id number] Implanted:Qty: 1 on 06/20/2023 by Nitin Gutiérrez M.D., M.S. at [facility] Spinal Cord Stimulator Right: Chest [employer] 04/12/2026 [id number] / [id number] / Insurance MEDICARE [facility] Advance Directives For more information, please contact: [phone] * Full Code (Latest Code Status on File) Date Activated Date Inactivated Comments 06/20/2023 1:42 PM 06/22/2023 2:04 AM Question Answer Comments Full Code: Discussed Care Teams Copy Camera Operator Relationship Specialty Start Date End Date None Reported, Pcp PCP - General Family Medicine 05/16/23
--- OUTSIDE RECORDS SUMMARY | 2025-02-26 00:02 | XMS_ITS | Clinical Summary ---
Author Organization [facility] Address [address] [place] [address]. [place] [address] Care Team Providers Care Corporate Traffic Manager Name Role Phone Lucero Fraire MD Primary Care Provider [phone] Allergies No known active allergies Medications HYDROcodone-riri [...] on file Legal Sex Male 3:23 AM RIGGER Gender Identity Not on file Sexual Orientation Not on file Last Filed Vital Signs Vital Sign Reading Time Taken Comments Blood Pressure 139/94 08/01/2020 6:32 PM CDT Pulse 70 08/01/2020 6:32 PM CDT Temperature 36.8 C (98.3 F) 08/01/2020 6:32 PM CDT Respiratory Rate 18 08/01/2020 6:32 PM CDT Oxygen Saturation 98% 08/01/2020 6:32 PM CDT Inhaled Oxygen Concentration - - Weight 103.6 kg (228 lb 6.3 oz) 08/01/2020 6:32 PM CDT Height 172.7 cm (5' 8) 04/15/2015 12:2 3 AM CDT Body Mass Index 34.73 04/15/2015 12:23 AM CDT Plan of Treatment Not on file Insurance / [facility] [employer] Care Teams Corporate Traffic Manager Relationship Specialty Start Date End Date Lucero Fraire MD [facility] [address] [place] [address] PCP - General 10/20/17
--- OUTSIDE RECORDS SUMMARY | 2025-02-26 00:02 | XMS_ITS | Encounter Summary ---
Author Organization [facility] Address [address] [place] [address] Care Team Providers Care Bus Monitor Name Role Phone Lucero Fraire MD Primary Care Provider Encounter Details Date Type Department Care Team (Late st Contact Info) Description 07/08/2016 Orders Only [facility] [address] [place] [id number] Kameron Morales MD [address] [place] [address] Post-traumatic osteoarthritis of left knee Social History [...] leg documented in this encounter Care Teams Bus Monitor Relationship Specialty Start Date End Date Lucero Fraire MD [address] [place] [address] PCP - General 12/03/15 documented as of this encounter
--- OUTSIDE RECORDS SUMMARY | 2025-02-26 00:03 | XMS_ITS | Encounter Summary ---
Author Organization [place] Address [facility] [place] [address] Care Team Providers Care Kiln Puller Name Role Phone Carmita German MD Primary Care Provider + [phone] Lucero Fraire MD Primary Care Provider [phone] Encounter Details Date Type Department Care Team (Late st Contact Info) Description 11/06/2010 Office Visit-[facility] [address] [place] [address] Timothy Mcgraw MD [address] [facility] [address] [place], [place] [id number] Social History Tobacco Use Types Packs/Day Years Used Date Smoking Tobacco: Never Assessed Sex and Gender Information Value Date Recorded Sex Assigned at Not on file Legal Sex Male 3:23 AM COMMAND AND CONTROL Gender Identity Not on file Sexual Orientation Not on file documented as of this encounter Progress Notes * Timothy Mcgraw MD - 11/25/2010 4:47 PM CST Progress Note Created by: Timothy Mcgraw M.D. [id number] DATE: 11/06/2010 SHASHANK HASTINGS DATE OF : 1960 AGE: [age] years old Referring Physician: CARMITA GERMAN Referring Clinic: [facility] CURRENT DIAGNOSES 1. - Abnormal EKG, 794.31 ALLERGIES NKDA MEDICATIONS (prior to changes made today) 1. Aspirin 81 mg Tablet, 1 p.o. daily 2. Simvastatin 80 mg Tablet, 1 p.o. daily 3. Nexium 40 mg Capsule, Delayed Release(E.C.), 1 p.o. daily 4. Lunesta 2 mg Tablet, 1 p.o. PRN as Directed 5. Nasonex 50 mcg/Actuation [place], Non-Aerosol, 1 p.o. PRN as Directed 6. [...] loss of sensation. He received thrombolysis at [facility]. I do not have complete [...] exercises regularly and gym member; Occupation - [employer]; Residence - lives in [place] year round; Place of - [place]; REVIEW OF SYSTEMS GENERAL feels well, [...] PRN as Directed, #0 Nasonex 50 mcg/Actuation [place], Non-Aerosol, 1 p.o. PRN as Directed, #0 [...] on filedocumented in this encounter Care Teams Kiln Puller Relationship Specialty Start Date End Date Carmita German MD [address] [place] [phone] PCP - General Family Practice 10/21/11 12/21/16 Lucero Fraire MD [address] [address] PCP - General 10/20/17 documented as of this encounter
--- OUTSIDE RECORDS SUMMARY | 2025-02-26 00:03 | XMS_ITS | Clinical Summary ---
Author Organization [facility] Address [facility] [place] [address] Care Team Providers Care Automation/Controls Manager Name Role Phone None Primary Care Provider Unavailabl e Allergies No known active allergies Medications aspirin-calcium carbonate 81 mg-300 mg calcium(777 mg) tab Take by mouth. Active simvastatin (ZOCOR) 5 mg tablet Take by [...] at Not on file Legal Sex Male 7:11 PM CDT Gender Identity Not on file Sexual Orientation Not on file Obstetrics History Plan of Treatment Health Maintenance Due Date Last Done Comments Tdap 1969 Depression screening for age 12+ 1970 BMI (ht and wt on same day) for age 18+ 1976 Hepatitis C screening for age 18-79 1976 Tetanus booster 1978 Colonoscopy through age 75 2003 Lipids for age 45-75 2003 Pneumococcal series for age 50+ (1 of 1 - PCV) 008 Zoster (shingles) series for age 50+ (1 of 2) 09/22/20 08 RSV vaccine for adults or pr egnancy (1 - Risk 60-74 years 1-dose series) 2018 COVID-19 vaccine series ( season) Influenza Vaccine (Season Ended) 2025 Insurance MEDICARE [place] ONLY MEDICARE [place] ONLY Care Teams Automation/Controls Manager Relationship Specialty Start Date End Date None . PCP - General 02/09/18
[2025-02-26 00:09] VITALS: BP 117/77; PULSE 74; RESP 18; TEMP 36.7; O2SAT 93; BMI 31.5
[2025-02-26 00:19] LABS: Appearance Urine Clear (Clear); Bilirubin Urine Negative (Negative); Blood Urine Negative (Negative); Color Urine Yellow (Yellow); Glucose Urine 3+ (Negative); Ketones Urine Negative (Negative); Leukocyte Esterase Urine Negative (Negative); Nitrite Urine Negative (Negative); Protein Urine Negative (Negative); Specific Gravity Urine <= 1.005 (1.000-1.030); Urobilinogen Urine 0.2 (0.2-1.0); pH Urine 5.5 (5.0-8.5)
[2025-02-26 00:26] LABS: RBC Urine 0-2 (0-2); Squamous Epithelial Cell Urine Few (None-Few); WBC Urine 0-2 (0-5)
[2025-02-26] MEDS: INSULIN REGULAR, HUMAN 100 UNIT/ML VIAL 10 UNIT SUBCUT ×2 (00:29→02:34)
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
[2025-02-26] MEDS: INSULIN GLARGINE,HUM.REC.ANLOG 100 UNIT/ML INSULN.PEN 15 UNIT SUBCUT (00:40)
[2025-02-26 00:41] LABS: HCO3 VBG 24 mmol/L (21-28); PCO2 VBG 39 mmHG (40-50); pH VBG 7.386 (7.32-7.43)
[2025-02-26 00:44] LABS: Basophils Absolute Auto 0.04 K/uL (0.00-0.30); Basophils Percent Auto 0.4 % (0.0-3.0); Eosinophils Absolute Auto 0.49 K/uL (0.00-0.50); Eosinophils Percent Auto 4.8 % (0.0-7.0); Hematocrit 45.5 % (37.0-53.0); Hemoglobin* 15.5 gm/dL (13.5-17.5); Immature Granulocytes Abs Auto 0.06 K/uL (0.00-0.30); Immature Granulocytes Pct Auto 0.6 %; Lymphocytes Percent Auto 44.7 % (20-44); Mean Corpuscular HGB Conc 34 gm/dL (32-36); Mean Corpuscular Hemoglobin 29 pg (26-34); Mean Corpuscular Volume 85 fL (80-100); Monocytes Percent Auto 12.5 % (0.0-11.0); Platelet Count* 238 K/uL (140-440); RDW Coefficient of Variation % 12.6 % (11.5-15.5); Red Blood Count 5.37 m/uL (4.30-5.90); Slide Review Reflex No; White Blood Count* 10.14 K/uL (4.50-11.00)
[2025-02-26 00:56] LABS: Chloride* 98 mmol/L (96-114); Potassium* 4.6 mmol/L (3.6-5.1); Sodium* 128 mmol/L (135-149)
[2025-02-26 00:59] LABS: Anion Gap 8 mEq/L (7-15); Blood Urea Nitrogen* 25 mg/dL (7-30); Carbon Dioxide* 22 mmol/L (20-32); Creatinine* 0.9 mg/dL (0.5-1.5); Estimated Glomerular Filt Rate 94 ml/min
--- OUTSIDE RECORDS SUMMARY | 2025-02-26 00:59 | XMS_ITS | Clinical Summary ---
Author Organization [facility] Address [facility] [place] [address] Care Team Providers Care Professor Of Vegetable Science Name Role Phone None Primary Care Provider [...] PB ONLY MEDICARE PB ONLY Care Teams Professor Of Vegetable Science Relationship Specialty Start Date End Date None . PCP - General 02/09/18
--- OUTSIDE RECORDS SUMMARY | 2025-02-26 00:59 | XMS_ITS | Clinical Summary ---
Author Organization [facility] Address [address] [place] [address] Care Team Providers Care Electric Meter Repairer Helper Name Role Phone None Reported, Pcp Primary Care Provider Unavail able Source Comments Patient records contain information from all sites at [facility]. For routine questions regarding patient records, call [phone] during business hours, M-F 8:00 AM - 5:00 PM Central Time. Record requests for emergency care only can be directed to [phone] at any time.[facility] Allergies No known [...] Tobacco: Never Tobacco Cessation:Counseling Given: Not Answered [facility] Whiskities Answer Date Recorded In the past 12 months has e [employer], gas, oil, or water [employer] threatened to shut off services in your [...] often do you attend chur ch or anabaptism services? 1 to 4 times per year 04/04/2023 Do you belong to any clubs o r organizations such as roman catholic groups, unions, fraternal or athletic groups, [...] and heating? Not hard at all 04/04/2023 [facility] Occupat [facility] - Occupational Stress Questionnaire Answer Date Recorded [...] your living situation today? I have a [facility] place to live 10/11/2024 Education Answer Date Recorded What is the highest level of school you have completed or the highest degree you have received? 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 Gender Identity Male 04/04/2023 10:07 AM CDT Sexual Orientation Straight 04/04/2023 10 :07 AM CDT Last Filed Vital Signs Vital Sign Reading Time Taken Comments Blood Pressure 107/69 01/10/2024 3:47 PM HOME CONNECT LPN Pulse 75 01/10/2024 3:47 PM HOME CONNECT LPN Temperature 36.6 C (97.9 F) 06/20/2023 12:50 PM CDT Respiratory Rate 16 06/20/2023 1:15 PM CDT Oxygen Saturation 93% 06/20/2023 1:15 PM CDT Inhaled Oxygen Concentration - - Weight 100 kg (221 lb 3.7 oz) 01/10/2024 3:47 PM HOME CONNECT LPN Height 175.6 cm (5' 9.13) 01/10/2024 3:47 PM CS T Body Mass Index 32.54 01/10/2024 3:47 PM HOME CONNECT LPN Plan of Treatment Health Maintenance Due Date [...] this topic Medical Devices Implanted Type Area Forest Fire Equipment Operator Device Identifier Shelf Expiration Date Model / Serial / Lot Lead Cuff Stimulation - [id number] - [id number] Implanted:Qty: 1 on 06/20/2023 by Nitin Gutiérrez M.D., M.S. at [facility] Responsive Neurostimulator Sys Right: Neck [employer] 03/21/2026 4063-45 CM / [id number] / Lead All Source Analyst Ap Thor Rsp Sns - [id number] - [id number] Implanted:Qty: 1 on 06/20/2023 by Nitin Gutiérrez M.D., M.S. at [facility] Responsive Neurostimulator Sys Right: Chest [employer] 04/11/2026 4340 / [id number] / Gen Nrstm Sleep Apnea Thor - [id number] - [id number] Implanted:Qty: 1 on 06/20/2023 by Nitin Gutiérrez M.D., M.S. at [facility] Spinal Cord Stimulator Right: Chest [employer] 04/12/2026 3028 / [id number] / Insurance MEDICARE [facility] Advance Directives For more information, please contact: [phone] * Full Code (Latest Code Status on File) Date Activated Date Inactivated Comments 06/20/2023 1:42 PM 06/22/2023 2:04 AM Question Answer Comments Full Code: Discussed Care Teams Electric Meter Repairer Helper Relationship Specialty Start Date End Date None Reported, Pcp PCP - General Family Medicine 05/16/23
--- OUTSIDE RECORDS SUMMARY | 2025-02-26 00:59 | XMS_ITS | Clinical Summary ---
Author Organization [place] Address [address] [place] [address]. 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
--- OUTSIDE RECORDS SUMMARY | 2025-02-26 00:59 | XMS_ITS | Encounter Summary ---
Author Organization [place] Address [facility] [place] [address] Care Team Providers Care Broadband Engineer Name Role Phone Carmita German MD Primary Care Provider [phone] Lucero Fraire MD Primary Care Provider [phone] Encounter Details Date Type Department Care Team (Late st Contact Info) Description 11/06/2010 Office Visit-[facility] [address] [place] [address] Timothy Mcgraw MD [address] [facility] [address] [place], [place] [id number] Social History Tobacco Use Types Packs/Day Years Used Date Smoking Tobacco: Never Assessed Sex and Gender Information Value Date Recorded Sex Assigned at Not on file 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 [id number] DATE: 11/06/2010 SHASHANK HASTINGS DATE OF : [...] PRN as Directed 5. Nasonex 50 mcg/Actuation Bushnell, Non-Aerosol, 1 p.o. PRN as Directed 6. [...] loss of sensation. He received thrombolysis at [facility]. I do not have complete records although [...] exercises regularly and gym member; Occupation - [employer]; Residence - lives in [place] year round; Place of - [place]; REVIEW OF SYSTEMS GENERAL feels well, no [...] PRN as Directed, #0 Nasonex 50 mcg/Actuation Bushnell, Non-Aerosol, 1 p.o. PRN as Directed, #0 [...] on filedocumented in this encounter Care Teams Broadband Engineer Relationship Specialty Start Date End Date aCrmita German MD [address] [place] [phone] PCP - General Family Practice 10/21/11 12/21/16 Lucero Fraire MD [address] [address] PCP - General 10/20/17 documented as of this encounter
--- OUTSIDE RECORDS SUMMARY | 2025-02-26 00:59 | XMS_ITS | Encounter Summary ---
Author Organization [facility] Address [address] [place] [address] Care Team Providers Care Grades 7 8 Tutor Name Role Phone Lucero Fraire MD Primary Care Provider Encounter Details Date Type Department Care Team (Late st Contact Info) Description 07/08/2016 Orders Only [facility] [address] [place] [id number] Kameron Morales MD [address] [place] [address] Post-traumatic osteoarthritis of left knee Social History [...] leg documented in this encounter Care Teams Grades 7 8 Tutor Relationship Specialty Start Date End Date Lucero Fraire MD [address] [place] [address] PCP - General 12/03/15 documented as of this encounter
--- OUTSIDE RECORDS SUMMARY | 2025-02-26 00:59 | XMS_ITS | Clinical Summary ---
[facility] Address [address] [place] [address] Care Team Providers Care Alarm Adjuster Name Role Phone Lucero Fraire MD Primary Care Provider [phone] Source Comments You are receiving this document as you are listed as the primary care provider,follow-up provider, or the patient has been referred to you for consultation.This is in compliance with the Medicare andOhio[facility] Hospital[facility] EHR Incentive Program,which states Providers who transition their patient to another setting of careor provider of care or refers their patient to another provider of care shouldprovide summary care record for each transition of care or referral. [facility] Allergies No known active allergies Medications mometasone [...] this topic Medical Devices Implanted Type Area Chemist Helper Device Identifier Shelf Expiration Date Model / Serial / Lot Bone Putty Atiya Dbm 1cc - [id number] Implanted:Qty : 1 on 09/27/2016 by Kameron Morales MD at [facility] Left: LEG [employer] - [employer] 09/23/2018 11048 / [id number] / 0 Description:For fusion of pr oximal tibial and fibula fracture Scr Canc Lg Hex 6.5x70 32-Thrd - [id number] Implanted:Qty : 2 on 09/27/2016 by Kameron Morales MD at [facility] Left: LEG [employer] [id number] / 0 / 0 Washer Lg Scr 13.0mm Od - [id number] Implanted:Qty : 2 on 09/27/2016 by Kameron Morales MD at [facility] Left: LEG [employer] [id number] / 0 / 0 Insurance [facility] [place] [employer] [place] [employer] Advance Directives * Full Code (Latest Code Status on File) Date Activated Date Inactivated Comments 08/08/2017 1:07 PM 08/08/2017 5:07 PM Full code in effect for 30 days * Full Code Date Activated Date Inactivated Comments 09/27/2016 10:03 AM 09/27/2016 1:23 PM Full code i n effect for 30 days Care Teams Alarm Adjuster Relationship Specialty Start Date End Date Lucero Fraire MD [address] [place] [address] PCP - General 12/03/15
[2025-02-26 01:47] LABS: Glucose* 710 mg/dL (60-115)
[2025-02-26 02:42] VITALS: BP 121/74; PULSE 79; RESP 18; TEMP 36.7; O2SAT 93
[2025-02-26 03:02] VITALS: BP 121/74; PULSE 79; RESP 18; TEMP 36.7
== END 2025-02-26 03:02 | disposition home or self-care (01) ==
PROVIDERS: Emergency Provider Family Medicine; PCP Physician Assistant Medical
DX: E11.65 Type 2 diabetes mellitus with hyperglycemia (principal); Z79.4 Long term (current) use of insulin; Z79.84 Long term (current) use of oral hypoglycemic drugs
CPT/HCPCS: 36415; 80048; 81001; 81003; 82803; 82962; 85025; 99283; 99284; J1815

== ENCOUNTER 2025-03-14 09:56 | Outpatient (CLI) | payer MEDICARE, OTHER, SELFPAY | END 2025-03-14 09:57 | disposition home or self-care (01) | LOC: LKVREF 09:58 | PROVIDERS: PCP Physician Assistant Medical; Visit Provider Physician Assistant Medical | DX: R74.8 Abnormal levels of other serum enzymes (principal) | CPT/HCPCS: 80076 ==

== ENCOUNTER 2025-07-26 10:25 | Outpatient (CLI) | payer MEDICARE, OTHER, SELFPAY | END 2025-07-26 10:26 | disposition home or self-care (01) | LOC: NFLDREF 07-31 13:00 | PROVIDERS: PCP Physician Assistant Medical; Referring Provider Physician Assistant Medical; Visit Provider Physician Assistant Medical | DX: E11.9 Type 2 diabetes mellitus without complications (principal) | CPT/HCPCS: 80053 ==